=== PATIENT | male | born 1960 | race Caucasian/White ===

== ENCOUNTER 2017-09-05 05:27 | Day surgery (SDC) | payer OTHER ==
[2017-08-17 14:54] VITALS: BMI 59.0
--- NOTE | 2017-08-17 15:42 | PAT Medication Instructions ---
Service Date Aug 17, 2017. Current Home Medication List Albuterol Hfa (Ventolin Hfa), 2-4 PUFFS INH BID Aspirin Enteric Coated (Ecotrin Or Generic), 81 MG PO QAM Celecoxib (CeleBREX), 200 MG PO BID Fluticasone Prop/Salmeterol (Advair Diskus 100/50 60 Dose), 1 PUFF INH DAILY PRN for SOB/Wheezing Furosemide (Lasix), 80 MG PO 3XWK Furosemide (Lasix), 40 MG PO 4XWK Gabapentin (Neurontin), 600 MG PO TID Lamotrigine (Lamictal), 200 MG PO HS Metoprolol Tartrate (Lopressor) (Lopressor), 50 MG PO BID Nitroglycerin (Nitrostat), 1 TAB SL DAILY PRN for chest pain Omeprazole (Prilosec), 40 MG PO QAM Quetiapine Fumarate (Seroquel), 50 MG PO HS Rivaroxaban (Xarelto), 1 TAB PO DAILYBD Spironolactone (Aldactone), 25 MG PO QAM Sucralfate (Carafate), 1 GM PO HS Topiramate (Topamax), 1 TAB PO BID Zolpidem Tartrate (Ambien), 5 MG PO HS PRN for Sleep Medication Instructions For Your Scheduled Surgery -Contact your surgeon for instructions for: Celecoxib (CeleBREX), 200 MG PO BID -Continue as directed: Nitroglycerin (Nitrostat), 1 TAB SL DAILY PRN for chest pain -Hold for TWO DAYS per 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: Rivaroxaban (Xarelto), 1 TAB PO DAILYBD-- LAST DOSE ON SATURDAY 09/02 - SKIP the following medications the morning of surgery: Spironolactone (Aldactone), 25 MG PO QAM Furosemide (Lasix), 80 MG PO 3XWK Furosemide (Lasix), 40 MG PO 4XWK - TAKE the following medications the morning of surgery with a sip of water: Topiramate (Topamax), 1 TAB PO BID Omeprazole (Prilosec), 40 MG PO QAM Gabapentin (Neurontin), 600 MG PO TID Albuterol Hfa (Ventolin Hfa), 2-4 PUFFS INH BID Fluticasone Prop/Salmeterol (Advair Diskus 100/50 60 Dose), 1 PUFF INH DAILY PRN for SOB/Wheezing Aspirin Enteric Coated (Ecotrin Or Generic), 81 MG PO QAM Metoprolol Tartrate (Lopressor) (Lopressor), 50 MG PO BID - TAKE the following medications as scheduled the night before surgery: Zolpidem Tartrate (Ambien), 5 MG PO HS PRN for Sleep Topiramate (Topamax), 1 TAB PO BID Sucralfate (Carafate), 1 GM PO HS Quetiapine Fumarate (Seroquel), 50 MG PO HS Gabapentin (Neurontin), 600 MG PO TID Lamotrigine (Lamictal), 200 MG PO HS Albuterol Hfa (Ventolin Hfa), 2-4 PUFFS INH BID Fluticasone Prop/Salmeterol (Advair Diskus 100/50 60 Dose), 1 PUFF INH DAILY PRN for SOB/Wheezing If you have any questions please call us at [phone] or [phone] or [phone]
[2017-08-17 16:12] LABS: BASO % 0.4 %; BASO ABS # 0.05 K/uL (0-0.2); EOS % 2.1 %; EOS ABS # 0.23 K/uL (0-0.5); HEMATOCRIT 41.8 % (42-52); HEMOGLOBIN 13.8 g/dL (14.0-18.0); IG# 0.04 K/uL (0.00-0.02); LYMPH % 28.9 %; LYMPH ABS # 3.22 K/uL (1.2-3.4); MEAN CELL VOLUME 77.7 fL (80-100); MEAN CORPUSCULAR HEMOGLOBIN 25.7 pg (25-34); MEAN PLATELET VOLUME 10.7 fL (7.4-10.4); MONO % 6.8 %; MONO ABS # 0.76 K/uL (0.11-0.59); NEUT % 61.4 %; NEUT ABS # 6.86 K/uL (1.4-6.5); PLATELET COUNT 300 K/uL (130-400); RED CELL DISTRIBUTION WIDTH CV 16.6 % (11.5-14.5); RED CELL DISTRIBUTION WIDTH SD 47.1 fL (36.4-46.3); WHITE BLOOD COUNT 11.16 K/uL (4.8-10.8)
[~2017-09-05] VITALS: Ht 165.1 cm; Wt 160.9 kg
[~2017-09-05 05:27] MED LIST: ADVIN10/60 INH; ASPI81TA21 PO; CLB/200 PO; FRS/40 PO; FURO80TA63 PO; GABA-113 PO; LAMO200T35 PO; METO50TA16 PO; NTRGSL/4 SL; OMEP40CA41 PO; QUET1TAB32 PO; RIVA1TAB4 PO; SPIR25TA PO; SUCR1TAB29 PO; TOPI25TA55 PO; VNTHFA/IN INH; ZOLP5TAB PO
[2017-09-05 05:45] VITALS: BP 127/70; PULSE 75; TEMP 37; O2SAT 96; Ht 165.1 cm; Wt 160.9 kg
[2017-09-05] MEDS ORDERED: CEFAZOLIN 3000MG IV PUSH 15 ML IV SCH (06:00)
[2017-09-05] MEDS ORDERED: LACTATED RINGER'S 1000ML 1,000 ML IV SCH ×2 (06:00)
--- NOTE | 2017-09-05 06:56 | History & Physical Bridge Note ---
H&P Re-Evaluation Bridge Note: I have examined the patient, reviewed the History & Physical and in the interval since the performance of the History & Physical I have noted the following changes of clinical significance: No changes noted
[2017-09-05] MEDS ORDERED: D5W AND 1/2NSS + 20MEQ KCL 1,000 ML IV SCH (06:57)
[2017-09-05] MEDS ORDERED: OXYCODONE/ACETAMINOPHEN 10/325MG TAB PO PRN (07:00)
[2017-09-05] MEDS ORDERED: ONDANSETRON INJ 2 MG/ML 2 ML VIAL IV PRN ×2 (07:00→09:00)
[2017-09-05] MEDS ORDERED: CHLORHEXIDINE GLUCONATE 0.12% 480 ML MT ONE (07:03)
[2017-09-05] MEDS ORDERED: FENTANYL CITRATE INJ 50 MCG/1 ML 2 ML VIAL ONE ×3 (07:08→08:45)
[2017-09-05] MEDS ORDERED: ONDANSETRON INJ 2 MG/ML 2 ML VIAL ONE (07:44)
[2017-09-05] MEDS ORDERED: PROPOFOL IV EMULSION 10 MG/ML 20 ML VIAL IV ONE (07:44)
[2017-09-05] MEDS ORDERED: SUCCINYLCHOLINE CHLORIDE 20 MG/ML 10 ML VIAL IV ONE (07:44)
[2017-09-05] MEDS ORDERED: LIDOCAINE HCL 2% 2 ML VIAL (20MG/ML) ONE (07:44)
[2017-09-05] MEDS ORDERED: EpHEDrine SULFATE 50MG/5ML SYR ONE (07:44)
[2017-09-05] MEDS: BUPIVACAINE/EPINEPHRINE 0.5% 1:200,000 1.8 ML CARP ONE ×2 (08:16→08:22)
--- NOTE | 2017-09-05 08:29 | [facility] Post Operative Brief Note ---
Immediate Operative Summary Operative Date Sep 05, 2017. Pre-Operative Diagnosis Unrestorable teeth #6, 7, 8, 9, 10, 11, 12, 13, 22, 23, 24, 25, 26, 27, 28, 29 Post-Operative Diagnosis Unrestorable teeth #6, 7, 8, 9, 10, 11, 12, 13, 22, 23, 24, 25, 26, 27, 28, 29 Procedure(s) Performed Extraction of 16 Teeth: # 6,7,8,9,10,11,12,13,22,23,24,25,26,27,28,29 & Alveoplasty x2 Surgeon Dr[address] Deo Mckinnon Sld Educational Aide Surgeon(s) Richa Zamora, BARBIE Estimated Blood Loss 10 mL Findings Consistent with Post-Op Diagnosis Specimens No pathology specimen per surgeon Drains None Anesthesia Type General Complication(s) none Disposition Accompanied Pt To Recover: yes Disposition: Recovery Room / PACU (he did very well )
--- NOTE | 2017-09-05 08:34 | Discharge Instructions ---
Discharge Instructions Date of Service Sep 05, 2017. Visit Reason for Visit: Infected/Abscessed Teeth, Severe Sleep Apnea, Cad, Discharge Discharge Diagnosis / Problem: removal of infected teeth Discharge Goals Goal(s): Decrease discomfort, Improve function, Prevent Disease Progression Medications Stopped Medications Name(s): none Restart Stopped Medication(s): none Activity Recommendations Activity Limitations: per Instructions/Follow-up section Lifting Limitations: no more than 25 pounds Exercise/Sports Limitations: until after follow-up appointment May Resume Sexual Activity: after follow-up appointment Shower/Bathe: no limitations Driving or Machine Use: resume 3 days after discharge Weightbearing Status: Left weightbearing (as tolerated), Right weightbearing ( as tolerated) soft diet only keep gauze pressure to control oozing Anesthesia . Post Anesthesia Instructions: If you have had General Anesthesia or IV Sedation: * Do not drive today. * Resume driving when surgeon permits. * Do not make important decisions or sign legal documents today. * Call surgeon for: 1. Temperature elevations greater than 101 degrees F. 2. Uncontrollable pain. 3. Excessive bleeding. 4. Persistent nausea and vomiting. 5. Medication intolerance (nausea, vomiting or rash). * For nausea and vomiting use only clear liquids such as: tea, soda, bouillon until nausea subsides, then gradually increase diet as tolerated. * If you have any concerns or questions, call your surgeon's office. If physician is unavailable and it is an emergency, call 911 or go to the nearest emergency room. . Instructions / Follow-Up Instructions / Follow-Up ADDITIONAL ACTIVITY RECOMMENDATIONS: * [place] teeth after every meal. It is very important to keep your mouth clean to prevent infection. SPECIAL CARE INSTRUCTIONS: * Keep ice on the side of your face for the next 24 to 36 hours. This will help keep the swelling down. * After 36 hours, apply heat (hot water bottle or heating pad) for the next two days, as often as possible. * Tomorrow start rinsing your mouth with 1/2 teaspoon salt in 8 ounces warm water. This rinse should be used every 4-6 hours. * You may experience slight nausea. To prevent this, never take your medication on an empty stomach. If nauseated, take small sips of codi fred until you feel better; then you may start on applesauce and toast. * Some swelling is common. It should gradually decrease within 4-5 days. * A certain amount of bleeding is to be expected. It is often possible to control mild oozing by placing folded gauze over the area and biting down for 30 minutes. If you are unable to control excessive bleeding, call your doctor at . * You may experience some discomfort for a few days. If pain or swelling increases, call your doctor immediately at . Diet Recommendations Recommended Home Diet: no limitations (soft only ) Fluid Restriction: None Diet Texture: Dental Soft (bite-sized) Liquid Consistency: Pudding Thick Procedures Procedures Performed: Extraction of 16 Teeth: # 6,7,8,9,10,11,12,13,22,23,24,25,26,27,28,29 & Alveoplasty x2 Pending Studies Studies pending at discharge: no List of pending studies: none Work Instructions Return To Work: after follow-up Lifting Limitations: no more than 20 pounds Additional Instructions: none School Instructions Return To School: after follow-up Additional Instructions: none Medical Emergencies . Who to Call and When: Medical Emergencies: If at any time you feel your situation is an emergency, please call 911 immediately. . Non-Emergent Contact Non-Emergency issues call your: Specialist (Dr Mckinnon ) Contact Number: Dr Mckinnon [phone] Call Non-Emergent contact if: you have a fever, temperature is above 101.5, your pain is not controlled, your pain is worsening, your pain is unusual for you, your pain is concerning you, wound has increased drainage, wound has increased pain, you have any medication questions . . "Provider Documentation" section prepared by Deo Mckinnon. . [place] Drug Monitoring Program Search Results: patient reviewed within database Drug Monitoring Findings: as expected
[2017-09-05] MEDS ORDERED: LABETALOL HCL IV 5 MG/ML 20ML IV ONE (08:45)
[2017-09-05] MEDS ORDERED: LABETALOL HCL IV 5 MG/ML 20ML IV STA (08:47)
[2017-09-05] MEDS: FENTANYL CITRATE INJ 50 MCG/1 ML 2 ML VIAL IV PRN ×4 (08:52→09:07)
[2017-09-05] MEDS ORDERED: NALOXONE HCL 0.4 MG/1 ML VIAL/CARP IV PRN (09:00)
[2017-09-05] MEDS ORDERED: FLUMAZENIL 0.1 MG/1 ML 10 ML VIAL IV PRN (09:00)
[2017-09-05] MEDS ORDERED: EpHEDrine SULFATE INJ 50 MG/ML AMP IV PRN (09:00)
[2017-09-05] MEDS ORDERED: ATROPINE SULFATE 0.1 MG/ML 5ML SYR IV PRN (09:00)
--- NOTE | 2017-09-05 09:37 | Anesthesiology Progress Note ---
Anesthesia Post Op Note Date & Time Sep 05, 2017 at 09:37 Vital Signs Pain Intensity: 3 Vital Signs Past 12 Hours Date Time Temp Pulse Resp B/P (MAP) Pulse Ox O2 Delivery O2 Flow Rate FiO2 09/05/17 09:31 141/68 09/05/17 09:30 83 14 09/05/17 09:30 81 14 94 09/05/17 09:29 116/63 09/05/17 09:25 85 19 09/05/17 09:25 73 19 95 09/05/17 09:21 126/70 09/05/17 09:20 81 13 09/05/17 09:20 77 13 94 09/05/17 09:19 78 16 09/05/17 09:19 68 16 95 09/05/17 09:16 130/75 09/05/17 09:14 77 12 09/05/17 09:14 76 12 92 09/05/17 09:13 36.6 71 16 130/75 (108) 94 Nasal Cannula 2 09/05/17 09:11 146/66 09/05/17 09:09 82 10 09/05/17 09:09 83 10 125/81 88 09/05/17 09:07 170/ 09/05/17 09:06 184/155 09/05/17 09:04 77 24 09/05/17 09:04 85 24 98 09/05/17 09:03 77 13 99 09/05/17 09:03 77 13 09/05/17 09:01 168/68 09/05/17 08:58 79 15 99 09/05/17 08:58 81 15 09/05/17 08:56 146/89 09/05/17 08:53 83 13 09/05/17 08:53 77 13 97 09/05/17 08:51 154/74 09/05/17 08:49 150/103 09/05/17 08:48 73 15 96 09/05/17 08:48 78 15 09/05/17 08:46 157/99 09/05/17 08:43 71 15 96 09/05/17 08:43 81 15 09/05/17 08:41 169/104 09/05/17 08:38 85 16 150/103 96 09/05/17 08:38 89 16 09/05/17 08:38 36.3 73 16 169/104 (114) 96 Oxymask 10 09/05/17 05:45 37 75 20 127/70 (89) 96 Room Air Notes Mental Status: alert / awake / arousable, participated in evaluation Pt Amnestic to Procedure: Yes Nausea / Vomiting: adequately controlled Pain: adequately controlled Airway Patency, RR, SpO2: stable & adequate BP & HR: stable & adequate Hydration State: stable & adequate Anesthetic Complications: no major complications apparent
[2017-09-05 09:45] VITALS: BP 130/56; PULSE 78; TEMP 36.6; O2SAT 93
[2017-09-05 10:15] VITALS: BP 125/67; PULSE 76; TEMP 36.6; O2SAT 94
--- NOTE | 2017-09-05 10:31 | Medical Consult ---
Consultation Date of Consultation: Sep 05, 2017. Attending Physician: Deo Arreola D.M.D. Reason for Consultation: Consult medicine to assess pt stable for discharge History of Present Illness Pt is 56 y/o M with PMH chronic a-fib on xarelto, CAD s/p CABG x 4 in 2001, HTN , hyperlipidemia, OSCAR uses CPAP, morbid obesity, cor pulmonale, chronic back pain s/p [address] Arreola today. Pt back in PACU. Xarelto was held for 48 hours, pt to resume taking tomorrow per oral surgery. Pt already has Rx for antibiotics, pain medicine, mouth rinse. Vitals: T: 36.6, pulse: 70, Resp: 18, BP: 130/56, O2: 93% on RA. Denies excessive bleeding from extraction sites and reports mild pain to extraction sites. Denies chills, diaphoresis, N/V /D, STUBBS, dizziness, vision changes, neck pain, CP, SOB, palpitations, cough, abdominal pain, paresthesias, extremity weakness, extremity edema, rashes, urinary symptoms. Past Medical/Surgical History Medical Problems: (1) CAD (coronary artery disease) Status: Chronic (2) Chronic atrial fibrillation Status: Chronic (3) Chronic back pain Status: Chronic (4) Cor pulmonale Status: Chronic (5) Depression Status: Chronic (6) HTN (hypertension) Status: Chronic (7) Hyperlipidemia Status: Chronic (8) Obesities, morbid Status: Chronic (9) OSCAR (obstructive sleep apnea) Status: Chronic Surgical Problems: (1) Hx of biopsy Permanent Comment: hip Status: Resolved (2) Hx of coronary artery bypass graft Permanent Comment: 202 - CABG x 4 Status: Resolved Family History Hypertension Social History Smoking Status: Former Smoker (quit 2015, smoked 1ppd x 2 years) Smokeless Tobacco Use: Yes (snuff daily) Alcohol Use: none Drug Use: none Allergies Coded Allergies: Morphine (Verified Adverse Reaction, Mild, nausea and vomiting, 09/05/17) Current Inpatient Medications Current Inpatient Medications Medications (Trade) Dose Ordered Sig/Patricia Route Start Time Stop Time Status Last Admin Dose Admin Lactated Ringer's 1,000 ml @ 150 mls/hr Q6H40M IV 09/05/17 06:00 09/05/17 12:39 09/05/17 05:49 150 MLS/HR Cefazolin Sodium 15 ml @ 3 mls/min PREOP IV 09/05/17 06:00 09/05/17 18:00 09/05/17 07:12 3 MLS/MIN Lactated Ringer's 1,000 ml @ 15 mls/hr Q24H IV 09/05/17 06:00 09/06/17 05:59 Potassium Chloride/Dextrose/ Sod Cl 1,000 ml @ 125 mls/hr Q8H IV 09/05/17 06:57 10/05/17 06:56 UNV Ondansetron HCl (Zofran Inj) 4 mg Q4H PRN IV 09/05/17 07:00 10/05/17 06:59 UNV Ketorolac Tromethamine (Toradol Inj) 30 mg Q6 IV. 09/05/17 12:00 09/10/17 11:59 UNV Oxycodone/ Acetaminophen (Percocet 10-325MG Tab) 1 tab Q4H PRN PO 09/05/17 07:00 09/19/17 06:59 Fentanyl Citrate (Fentanyl Inj) 25 mcg Q5M PRN IV 09/05/17 09:00 09/05/17 14:00 09/05/17 09:07 25 MCG Naloxone HCl (Narcan Inj) 0.2 mg Q2M PRN IV 09/05/17 09:00 09/05/17 14:00 Flumazenil (Romazicon Inj) 0.2 mg Q2M PRN IV 09/05/17 09:00 09/05/17 14:00 Ondansetron HCl (Zofran Inj) 4 mg ONE PRN IV 09/05/17 09:00 09/05/17 14:00 Ephedrine Sulfate (EpHEDrine SULFATE INJ) 5 mg Q5M PRN IV 09/05/17 09:00 09/05/17 14:00 Atropine Sulfate (Atropine Sulfate 0.1mg/ml Inj) 0.5 mg Q1M PRN IV 09/05/17 09:00 09/05/17 14:00 Review of Systems Constitutional: No fever, No chills, No sweats, No weakness Eyes: No worsening of vision, No eye pain, No discharge, No diplopia ENT: + dental problems (s/p dental extraction - see HPI), No hearing loss, No unusual epistaxis, No nasal symptoms, No sore throat, No trouble swallowing Respiratory: No cough, No sputum, No wheezing, No shortness of breath, No hemoptysis Cardiovascular: No chest pain, No orthopnea, No PND, No palpitations Abdomen: No pain, No nausea, No vomiting, No diarrhea, No constipation, No GI bleeding Genitourinary - Male: No hematuria, No dysuria, No urinary frequency, No urinary urgency Neurologic: No weakness, No numbness/tingling Hematologic / Lymphatic: No abnormal bleeding/bruising, No clotting problems, No night sweats Integumentary: No rash, No itch Physical Exam Date Time Temp Pulse Resp B/P (MAP) Pulse Ox O2 Delivery O2 Flow Rate FiO2 09/05/17 09:45 36.6 78 18 130/56 93 Room Air 09/05/17 09:31 141/68 09/05/17 09:30 83 14 09/05/17 09:30 81 14 94 09/05/17 09:29 116/63 09/05/17 09:25 85 19 09/05/17 09:25 73 19 95 09/05/17 09:21 126/70 09/05/17 09:20 81 13 09/05/17 09:20 77 13 94 09/05/17 09:19 78 16 09/05/17 09:19 68 16 95 09/05/17 09:16 130/75 09/05/17 09:14 77 12 09/05/17 09:14 76 12 92 09/05/17 09:13 36.6 71 16 130/75 (108) 94 Nasal Cannula 2 09/05/17 09:11 146/66 09/05/17 09:09 82 10 09/05/17 09:09 83 10 125/81 88 09/05/17 09:07 170/ 09/05/17 09:06 184/155 09/05/17 09:04 77 24 09/05/17 09:04 85 24 98 09/05/17 09:03 77 13 99 09/05/17 09:03 77 13 09/05/17 09:01 168/68 09/05/17 08:58 79 15 99 09/05/17 08:58 81 15 09/05/17 08:56 146/89 09/05/17 08:53 83 13 09/05/17 08:53 77 13 97 09/05/17 08:51 154/74 09/05/17 08:49 150/103 09/05/17 08:48 73 15 96 09/05/17 08:48 78 15 09/05/17 08:46 157/99 09/05/17 08:43 71 15 96 09/05/17 08:43 81 15 09/05/17 08:41 169/104 09/05/17 08:38 85 16 150/103 96 09/05/17 08:38 89 16 09/05/17 08:38 36.3 73 16 169/104 (114) 96 Oxymask 10 09/05/17 05:45 37 75 20 127/70 (89) 96 Room Air General Appearance: no apparent distress, + obese Head: normocephalic, atraumatic Eyes: normal inspection, PERRL, EOMI, sclerae normal ENT: hearing grossly normal, pharynx normal, + pertinent finding (+dental extraction sites with scant bleeding) Neck: supple, trachea midline Respiratory/Chest: chest non-tender, no respiratory distress, no accessory muscle use, + pertinent finding (dminished BS throughout without rhonchi, rales or wheezing) Cardiovascular: no murmur, normal peripheral pulses, + irregularly irregular ( rate 70) Abdomen/GI: normal bowel sounds, non tender, + pertinent finding (obese abdomen ) Extremities/Musculoskelatal: normal inspection, normal capillary refill, non- tender, + pertinent finding (pedal pushes and pulls intact, flexion and extension hips/knees bilaterally intact, ROM arms intact) Neurologic/Psych: alert, normal mood/affect, oriented x 3 Skin: normal color, warm/dry Assessment & Plan S/P 16 TOOTH DENTAL EXTRACTION by DR ARREOLA Pt seen in PACU after extraction. Doing well. Scant bleeding from extraction sites. Vitals stable, no CP, SOB. Feel pt stable for d/c home. pain management, antibiotics, wound care per oral surgeon. Per Dr Arreola, pt to resume his Xarelto tomorrow. f/u with Dr Arreola as directed. Keep f/u appt in [address] Morillo as directed. Pt was seen with Dr Camilo. See addendum ATTENDING PHYSICIAN ADDENDUM: Care coordinated with JUNIOR Godinez. She assessed the patient in PACU and he was doing well. Patient was discharged from PACU before I could see him. Thank you for this consultation. You can reach a member of the [facility] Medicine Team 27/02 via pager @ [phone]. You can reach me via cell @ [phone]. . Additional Copies To Jp Morillo M.D.
[2017-09-05] MEDS ORDERED: KETOROLAC TROMETHAMINE 30 MG/ML VIAL IV. SCH (12:00)
--- NOTE | 2017-09-06 16:06 | OPERATIVE REPORT ---
DATE OF OPERATION: 09/05/2017 ADMITTING DIAGNOSES: Severe infected carious teeth and swollen gums as a result of the infected teeth, enlarged mandibular right lingual aspect of the mandible secondary to bony exostosis (myriam), multiple medical comorbidities, which include chronic pulmonary disease, status post coronary artery syndrome and severe obstructive sleep disorder. As a result of these comorbidities, it was recommended that the patient be treated as an outpatient at [facility] where adequate anesthesia could be managed. The patient underwent extensive preoperative testing before he was cleared to undergo the surgical procedure to remove these infected and carious teeth. POSTOPERATIVE DIAGNOSES: Same, which is the removal of 16 carious and infected teeth and alveoplasties and tore reduction of the mandible. OPERATIVE PROCEDURE: The operation was that of surgical extractions of teeth #6, #7, #8, #9, #10, #11, #12, #13, #22, #23, #24, #25, #26, #27, #28, and #29; alveoplasties of upper and lower jaw and removal of myriam mandibular right lower lingual aspect of mandible. OPERATION: After this patient was cleared to undergo a general anesthesia, he was brought down to the operating room and placed under general anesthesia via an orotracheal intubation. After adequate anesthesia was obtained, the patient was prepped and draped in the usual manner for the removal of multiple carious teeth and alveoplasties. After a timeout was taken and all information was correct, the patient was then prepared for the multiple extractions. The facial area was isolated. After this was done, an oropharyngeal throat pack was placed and the oral cavity was irrigated with Peridex mouth rinse and then suctioned dried. Using local anesthesia in the form of Marcaine anesthesia, this was infiltrated into the maxillary tissues as well as bilateral mandibular inferior alveolar nerve blocks. After adequate period of time to allow for hemostasis and local anesthetic effect, the extractions were carried out. At this time, the removal of the remaining maxillary teeth were carried out. After the teeth were removed, an incision was made in the mucoperiosteal tissue to expose the irregular bone. Using rongeurs and rotary instruments, the bony margins were then smoothed and trimmed to a more normal configuration. Each socket was curetted and suctioned dried, the soft tissue was trimmed with the use of a 2-0 chromic suture in an interrupted and continuous as well as a continuous fashion, the mucoperiosteal tissue was sutured closed. I now turned my attention to the failing teeth in the lower. Once again, the 15 blade was used to make an incision around the necks of all the teeth, the mucoperiosteal tissue was reflected to expose the irregular bone on both the facial and lingual aspect of the mandible. A very broad-based myriam was noted on the mandibular right side. With the use of dental forceps, I was able to remove the remaining mandibular teeth. The bony margins were then trimmed with the use of a rongeur and rotary instruments. I then turned my attention to the large broad-based myriam and with the use of a retractor, I was able to hold the tissue out of the way. I then used a small round karyna and carefully removed the bony myriam and then filed the area smooth until we were able to get a very nice contour of the lingual aspect of the mandible. After this was done, I then a filed the mandibular bone, smoothed to remove any bony protuberances. At this time, the soft tissue was trimmed in the usual manner with a sharp scissor. The sockets were then curetted and irrigated. The soft tissue was carefully approximated to obtain closure. At this time, the operation was complete. All the teeth were removed, the patient now had very nice contour alveolar ridges of both the upper and lower jaw. The oropharyngeal throat pack was removed. The oral cavity was irrigated and suction dry. Estimated blood loss was approximately 10 mL. Operating surgeon was Dr. Doe Mckinnon with nurse optical assistant, Richa Sommer. The operation took approximately an hour and 15 minutes. At this time, I escorted the patient with the anesthesia department to the recovery room after he was extubated. He was breathing satisfactorily and his vital signs were stable. In the recovery room, the patient was quite awake and alert for a short period of time. He had gauze pressure in his mouth and his hemostasis was well controlled. At this time, I reviewed the postoperative instructions with his sister who will care for the patient while he is recuperating at home. [facility] and if there are any problems, they will notify us; otherwise, he will be discharged and resume all of his present medications. He will be followed in our office in approximately 7-10 days. I estimate that in approximately 8-10 weeks, the patient will be ready for full upper and lower dentures. Comorbidities are as stated - chronic obstructive pulmonary disease, coronary artery disease, obesity and severe obstructive sleep apnea. He will be followed in my office. Routine instructions and prescriptions were given to the patient preoperatively. The patient tolerated the surgery very well and I anticipate an uneventful postoperative recovery. I attest to the content of the Intraoperative Record and any orders documented therein. Any exception s are noted below.
== END 2017-09-05 10:39 | disposition home or self-care (01) ==
LOC: C.OR 05:27
PROVIDERS: ATTEND Dentist Oral and Maxillofacial Surgery
DX: K08.89 Other specified disorders of teeth and supporting structures (principal); K02.9 Dental caries, unspecified; E78.00 Pure hypercholesterolemia, unspecified; I10 Essential (primary) hypertension; I25.10 Atherosclerotic heart disease of native coronary artery without angina pectoris; G47.33 Obstructive sleep apnea (adult) (pediatric); K21.9 Gastro-esophageal reflux disease without esophagitis; I25.2 Old myocardial infarction; E66.9 Obesity, unspecified; I48.91 Unspecified atrial fibrillation; Z95.5 Presence of coronary angioplasty implant and graft; Z79.01 Long term (current) use of anticoagulants
CPT/HCPCS: D7140; D7310; D7311; D7473

== ENCOUNTER 2020-03-03 15:43 | Inpatient (IN) ==
[2020-03-03] MEDS ORDERED: SODIUM CHLORIDE 0.9% 1000ML 1,000 ML IV SCH ×2 (16:30→21:19)
--- NOTE | 2020-03-03 17:16 | Emergency Department Note ---
ED Visit Note This patient was seen in concert with Dr. Aguilar and we discussed and agreed upon the history, physical, assessment, and plan. See attending's note for details. . Resident Activity Tracking Resident Involvement: Resident Care Provided Care Provided: Adult ED
--- NOTE | 2020-03-03 17:25 | Emergency Department Note ---
Impression & Plan Syncope, Chronic atrial fibrillation, Leukocytosis, CKD (chronic kidney disease) ED Provider Note NAME: SHADE ANDUJAR AGE: 59 SEX: M : 1960 ARRIVES VIA: Walk-In INFORMANT: Patient ED PROVIDER(S): Godfrey Aguilar DO CHIEF COMPLAINT: syncope HPI: Patient is a 59-year-old male with a past medical history of cardiac bypass x3, A. fib, CHF who presents the ER for syncopal event. He was carrying groceries into the house. He felt dizzy, lightheaded and did have some shortness of breath. He sat down on the couch and that is the last thing he remembers. Next thing he knew, his sister was waking him up. She notes that he was gasping for air. Patient has been taking his Xarelto and has not missed any doses. He notes he did lose control of his bladder. He denies any headache, change in vision, chest pain, shortness of breath, nausea, vomiting or diarrhea currently. No dysuria, urgency or frequency. No other exacerbating or remitting factors. ROS: See above HPI for pertinent positives & negatives. A total of 10 systems reviewed and were otherwise negative. PAST MEDICAL HISTORY:See Below PAST SURGICAL HISTORY:See Below FAMILY HISTORY:See Below SOCIAL HISTORY:See Below HOME MEDICATIONS:See Below ALLERGIES:See Below VITALS:See Below PHYSICAL EXAMINATION: GENERAL: Sitting up in bed, alert, chronically ill-appearing, disheveled, nontoxic EYE EXAM: normal conjunctiva. PERRL and EOM's intact. OROPHARYNX: no exudate, no erythema, lips, buccal mucosa, and tongue normal and mucous membranes are moist NECK: supple, no nuchal rigidity, no adenopathy, non-tender LUNGS: Clear to auscultation. Normal chest wall mechanics HEART: no murmurs, S1 normal and S2 normal ABDOMEN: abdomen soft, non-tender, normo-active bowel sounds, no masses, no rebo und or guarding. BACK: Back is symmetrical on inspection and there is no deformity, no midline tenderness, no CVA tenderness. SKIN: no rashes and no bruising UPPER EXTREMITIES: upper extremities are grossly normal. LOWER EXTREMITIES: No pitting edema. NEURO EXAM: Normal sensorium, cranial nerves II-XII intact, normal speech, no weakness of arms, no weakness of legs. No drift. Finger to nose intact. Gross sensation intact. MEDICAL DECISION MAKING: Patient is a 59-year-old male with a past medical history of CABG x3, CHF, A. fib who presents the ER for syncopal event. Patient was walking groceries in the house and became dizzy, lightheaded and short of breath. He went to sit down on the couch and passed out. Family woke him up noticed that he was having trouble breathing. Brought in by EMS. IV was established blood work was obtained. Labs show leukocytosis 13,000. No significant anemia. BMP with a creatinine 1.8 slightly elevated off of baseline of 1.7. LFTs bilirubin were negative. TSH unremarkable. Troponin was detectable but not positive at 0.021. EKG with no acute ischemia. Chest x-ray was unremarkable. CT head was negative. Neuro exam completely intact. He was given IV fluids. Oral Oxy for his chronic left shoulder pain. With his extensive cardiac history and syncopal event did discuss with the hospitalist for observation. Considered PE but on chronic anticoagulation and consequently did not pursue any further. Triage Nursing notes reviewed. Prior medical records reviewed Vital Signs: reviewed and remarkable for no significant abnormalities Differential diagnosis: Differential diagnosis includes etiologies such as vasovagal event, infection, hypoglycemia, electrolyte abnormalities, cardiac sources, intracerebral event, toxicologic, neurologic, as well as others were entertained. ER treatment provided: See below Diagnostics interpreted by me: ECG: A. fib rate of 54 Right axis T WI in the septal leads No PVCs Normal QTC Cardiac Monitoring: An order was placed for continuous cardiac monitoring. The monitor shows a rate of 56 with A. fib rhythm. Laboratory studies: As stated above and show below. Imaging studies: Portable AP upright 1 view of the chest shows no focal infiltrate or pneumothorax CT of the head shows no bleed or mass. Consultation(s): With Dr. Vann for observation ED COURSE: Procedures: none Critical Care: None Past Med/Surg History Social History Smoking Status: Never smoker Second Hand Exposure: No; Hx Alcohol Use: No Hx Substance Use: Yes Last Used Substance: Days (ago) Last Used Substance Other:: 3 days ago Preferred Language: Albanian Communication Ability: Effective Hearing Ability: Normal [employer] Distribution Supervisor Required: Yes Beliefs That Will Affect Care: None Current Living Situation: Alone Feels Safe at Home: Yes Allergies Allergies Allergy/AdvReac Type Severity Reaction Status Date / Time morphine AdvReac Mild nausea and Verified 01/31/19 00:57 vomiting Home Meds Home Medications Medication Instructions Recorded Confirmed Xarelto 20 mg PO QDD 05/04/18 01/31/19 albuterol sulfate [ProAir HFA] 2 puff INHALATION QID PRN 05/04/18 01/31/19 ferrous sulfate 325 mg PO DAILY 05/04/18 01/31/19 fluticasone propion-salmeterol 1 puff INHALATION DAILY PRN 05/04/18 01/31/19 [Advair Diskus] gabapentin 600 mg PO TID 05/04/18 01/31/19 hydroxyzine HCl 50 mg PO BID PRN 05/04/18 01/31/19 isosorbide mononitrate 30 mg PO QAM 05/04/18 01/31/19 lamotrigine [Lamictal] 200 mg PO BID 05/04/18 01/31/19 metoprolol tartrate 50 mg PO BID 05/04/18 01/31/19 nitroglycerin [Nitrostat] 0.4 mg SUBLINGUAL DIRECTED PRN 05/04/18 01/31/19 omeprazole 40 mg PO DAILY 05/04/18 01/31/19 quetiapine [Seroquel] 50 mg PO HS 05/04/18 01/31/19 spironolactone 12.5 mg PO DAILY 05/04/18 01/31/19 sucralfate [Carafate] 1 g PO HS 05/04/18 01/31/19 topiramate [Topamax] 25 mg PO BID 05/04/18 01/31/19 zolpidem [Ambien] 5 mg PO HS PRN 05/04/18 01/31/19 Previous Rx's Medication Instructions Recorded hydrocodone-acetaminophen [Kincaid] 1 tab PO Q6H PRN #14 tab 02/16/20 Results & Data (ED) Vital Signs Vital Signs - 24 hr 03/03/20 15:50 03/03/20 17:38 03/03/20 17:42 Temperature 36.7 C Temperature Source Oral Pulse Rate 70 53 L Pulse Rate from SpO2 Sensor 55 L Respiratory Rate 18 14 Blood Pressure 110/65 95/65 L Blood Pressure Mean 80 76 Pulse Oximetry 97 97 97 Oxygen Delivery Method Room Air Room Air Sepsis Recent Fever Within 48 Hours No Sepsis New/Unexplained Change in Mental Status No Sepsis Action Taken by Nursing No Action Required 03/03/20 18:27 03/03/20 18:30 03/03/20 19:00 Temperature Temperature Source Pulse Rate 61 57 L 55 L Pulse Rate from SpO2 Sensor 65 56 L 55 L Respiratory Rate 17 20 18 Blood Pressure 113/74 126/72 112/69 Blood Pressure Mean 86 83 78 Pulse Oximetry 99 99 99 Oxygen Delivery Method Sepsis Recent Fever Within 48 Hours Sepsis New/Unexplained Change in Mental Status Sepsis Action Taken by Nursing 03/03/20 19:31 Temperature Temperature Source Pulse Rate 64 Pulse Rate from SpO2 Sensor 64 Respiratory Rate 22 Blood Pressure 108/60 Blood Pressure Mean 79 Pulse Oximetry 99 Oxygen Delivery Method Sepsis Recent Fever Within 48 Hours Sepsis New/Unexplained Change in Mental Status Sepsis Action Taken by Nursing Laboratory Data Result diagrams: 03/03/20 18:30 03/03/20 18:30 Lab Results 03/03/20 03/03/20 03/03/20 Range/Units 18:30 18:30 18:30 WBC 13.15 H (4.8-10.8) K/uL RBC 4.95 (4.7-6.1) M/uL Hgb 14.2 (14.0-18.0) g/dL Hct 43.2 (42-52) % MCV 87.3 (80-100) fL MCH 28.7 (25-34) pg MCHC 32.9 (32-36) g/dL RDW Std Deviation 53.8 H (36.4-46.3) fL RDW Coeff of Karlene 16.9 H (11.5-14.5) % Plt Count 208 (130-400) K/uL MPV 10.3 (7.4-10.4) fL Immature Gran % (Auto) 0.5 % Neut % (Auto) 76.6 % Lymph % (Auto) 14.6 % [place] % (Auto) 7.0 % Eos % (Auto) 1.1 % Baso % (Auto) 0.2 % Neut # (Auto) 10.09 H (1.4-6.5) K/uL Lymph # (Auto) 1.92 (1.2-3.4) K/uL [place] # (Auto) 0.92 H (0.11-0.59) K/uL Eos # (Auto) 0.14 (0-0.5) K/uL Baso # (Auto) 0.02 (0-0.2) K/uL Immature Gran # (Auto) 0.06 H (0.00-0.02) K/uL PT 11.4 (9.0-12.0) Seconds INR 1.1 (0.9-1.1) Sodium 137 (136-145) mmol/L Potassium 4.4 (3.5-5.1) mmol/L Chloride 107 (98-107) mmol/L Carbon Dioxide 25 (21-32) mmol/L Anion Gap 5.0 (3-11) BUN 14 (7-18) mg/dl Creatinine 1.86 H (0.6-1.4) mg/dl Est Cr Clr Drug Dosing 57.9 ml/min Est GFR ( Amer) 45.2 Est GFR (Non-Af Amer) 39.0 BUN/Creatinine Ratio 7.6 L (10-20) Glucose 93 (70-99) mg/dl Calcium 9.4 (8.5-10.1) mg/dl Magnesium 2.3 (1.8-2.4) mg/dl Total Bilirubin 0.5 (0.2-1) mg/dl AST 18 (15-37) U/L ALT 32 (12-78) U/L Alkaline Phosphatase 133 H (45-117) U/L Troponin I 0.021 (0-0.045) ng/ml Total Protein 6.5 (6.4-8.2) gm/dl Albumin 3.2 L (3.4-5.0) gm/dl Globulin 3.3 (2.5-4.0) gm/dl Albumin/Globulin Ratio 1.0 (0.9-2) TSH 1.630 (0.300-4.500) uIu/ml Administered Medications Discontinued Medications Sodium Chloride (Nss 1000ml) 1,000 mls @ 999 mls/hr IV .Q1H1M CHRISTINE Stop: 03/03/20 17:30 Last Infusion: 03/03/20 19:42 Dose: 0 mls/hr Documented by: [id number] Admin: 03/03/20 17:43 Dose: 999 mls/hr Documented by: [id number] Discharge Plan Visit Data Chief Complaint: Syncope Stated Complaint: PASSED OUT, LOW BP ED Provider: Godfrey Aguilar ED Midlevel Provider: Jorge Hidalgo Discharge Problem: Syncope, Chronic atrial fibrillation, Leukocytosis, CKD (chronic kidney disease) Forms Stand Alone Forms: [facility] Prescriptions Prescriptions: No Action hydrocodone-acetaminophen [Kincaid] 5-325 mg tablet 1 tab PO Q6H PRN (Reason: pain) Qty: 14 RF: 0 gabapentin 600 mg Tablet 600 mg PO TID RF: 0 lamotrigine [Lamictal] 200 mg Tablet 200 mg PO BID RF: 0 sucralfate [Carafate] 1 gram Tablet 1 g PO HS RF: 0 isosorbide mononitrate 30 mg Tablet Extended Release 24 Hr 30 mg PO QAM RF: 0 topiramate [Topamax] 25 mg Tablet 25 mg PO BID RF: 0 hydroxyzine HCl 50 mg Tablet 50 mg PO BID PRN (Reason: Itching) RF: 0 omeprazole 40 mg Capsule,Delayed Release(Dr/Ec) 40 mg PO DAILY RF: 0 spironolactone 25 mg Tablet 12.5 mg PO DAILY RF: 0 ferrous sulfate 325 mg (65 mg iron) Tablet 325 mg PO DAILY RF: 0 metoprolol tartrate 50 mg Tablet 50 mg PO BID RF: 0 nitroglycerin [Nitrostat] 0.4 mg Tablet, Sublingual 0.4 mg Sublingual DIRECTED PRN (Reason: Chest Pain) RF: 0 zolpidem [Ambien] 5 mg Tablet 5 mg PO HS PRN (Reason: Sleep) RF: 0 fluticasone propion-salmeterol [Advair Diskus] 100-50 mcg/dose Blister With Device 1 puff INHALATION DAILY PRN (Reason: Shortness Of Breath Or Wheezing) RF: 0 albuterol sulfate [ProAir HFA] 90 mcg/actuation Hfa Aerosol Inhaler 2 puff INHALATION QID PRN (Reason: Shortness Of Breath Or Wheezing) RF: 0 quetiapine [Seroquel] 50 mg Tablet 50 mg PO HS RF: 0 Xarelto 20 mg Tablet 20 mg PO QDD RF: 0 Discharge Problem: Syncope Qualifiers: Syncope type: unspecified Qualified Code(s): R55 - Syncope and collapse Leukocytosis Qualifiers: Leukocytosis type: unspecified Qualified Code(s): D72.829 - Elevated white blood cell count, unspecified CKD (chronic kidney disease) Qualifiers: Chronic kidney disease stage: unspecified stage Qualified Code(s): N18.9 - Chronic kidney disease, unspecified
--- NOTE | 2020-03-03 17:37 | XRay Report ---
XR chest 1V portable HISTORY: 59 years-old Male syncope acute syncope COMPARISON: Chest radiographs 05/04/2018, chest CT 04/18/2006 TECHNIQUE: Portable AP view of the chest FINDINGS: Cardiac silhouette is enlarged, unchanged. Prior median sternotomy. No pneumothorax, large pleural ef fusion or overt pulmonary edema. Chronic interstitial coarsening of the lung bases. 10 mm calcified g ranuloma of the right lung base. Degenerative changes of the shoulders and spine. IMPRESSION: Cardiomegaly without acute process. ACT 112: Negative or not required by law. The above report was generated using voice recognition software. It may contain grammatical, syntax o r spelling errors. Electronically signed by: Darrell Bland M.D. 03/03/2020 5:36 PM
--- NOTE | 2020-03-03 17:59 | CT Scan Report ---
CT head/brain wo con CLINICAL HISTORY: 59 years-old Male with Loss of conciousness. Acutely altered mental status TECHNIQUE: Multiple axial CT images of the head were obtained without contrast. A dose lowering tech nique was utilized adhering to the principles of ALARA. CT DOSE: 884.08 mGy.cm COMPARISON: None. FINDINGS: No acute intracranial hemorrhage, midline shift, intracranial mass, hydrocephalus, territorial ischem ia or abnormal extra-axial collection. Mild age-related involutional changes. There is a probable rem ote lacunar infarct adjacent to the frontal horn left lateral ventricle. The calvarium is intact. The paranasal sinuses, mastoid air cells, and middle ear cavities are clear . IMPRESSION: No acute intracranial abnormality. ACT 112: Negative or not required by law. The above report was generated using voice recognition software. It may contain grammatical, syntax o r spelling errors. Electronically signed by: Darrell Bland M.D. 03/03/2020 5:58 PM
[2020-03-03 18:38] LABS: Basophils # (auto) 0.02 K/uL (0-0.2); Basophils % (auto) 0.2 %; Eosinophils # (auto) 0.14 K/uL (0-0.5); Eosinophils % (auto) 1.1 %; Hematocrit (blood only) 43.2 % (42-52); Hemoglobin 14.2 g/dL (14.0-18.0); Immature Granulocytes # (auto) 0.06 K/uL (0.00-0.02); Immature Granulocytes % (auto) 0.5 %; Lymphocytes # (auto) 1.92 K/uL (1.2-3.4); Lymphocytes % (auto) 14.6 %; Mean Corpuscular Hemoglobin 28.7 pg (25-34); Mean Corpuscular Hgb Conc 32.9 g/dL (32-36); Mean Corpuscular Volume 87.3 fL (80-100); Mean Platelet Volume 10.3 fL (7.4-10.4); Monocytes # (auto) 0.92 K/uL (0.11-0.59); Neutrophils # (auto) 10.09 K/uL (1.4-6.5); Neutrophils % (auto) 76.6 %; Platelet Count 208 K/uL (130-400); RDW Coefficient of Variation 16.9 % (11.5-14.5); RDW Standard Deviation 53.8 fL (36.4-46.3); Red Blood Count 4.95 M/uL (4.7-6.1); White Blood Count 13.15 K/uL (4.8-10.8)
[2020-03-03 18:49] LABS: INR 1.1 (0.9-1.1); Prothrombin Time 11.4 Seconds (9.0-12.0)
[2020-03-03 18:55] LABS: Albumin Level 3.2 gm/dl (3.4-5.0); BUN Creatinine Ratio 7.6 (10-20); Calcium 9.4 mg/dl (8.5-10.1); Creatinine Clr Calc Pharmacy 57.9 ml/min; Est GFR (African American) 45.2; Magnesium 2.3 mg/dl (1.8-2.4); Potassium 4.4 mmol/L (3.5-5.1)
[2020-03-03 19:06] LABS: Bilirubin,Total 0.5 mg/dl (0.2-1); Globulin 3.3 gm/dl (2.5-4.0); Thyroid Stimulating Hormone 1.63 uIu/ml (0.300-4.500); Total Protein 6.5 gm/dl (6.4-8.2); Troponin I 0.021 ng/ml (0-0.045)
[2020-03-03] MEDS ORDERED: OXYCODONE HCL IR 5 MG TAB (IMMEDIATE RELEASE) PO STA (19:55)
[2020-03-03] MEDS ORDERED: MoRPHine SULFATE 4 MG/ML 1 ML CARP\\VIAL IV PRN (21:19)
[2020-03-03] MEDS ORDERED: POLYETHYLENE (MIRALAX) 17 GM PACK PO PRN (21:19)
[2020-03-03] MEDS ORDERED: NITROGLYCERIN SL 0.4 MG/TAB TAB SL PRN ×2 (21:19)
[2020-03-03] MEDS ORDERED: ALBUTEROL 0.083% NEBU SOLN 3 ML VIAL INH PRN (21:19)
[2020-03-03] MEDS ORDERED: METOPROLOL TARTRATE 50 MG TAB PO SCH (21:19)
[2020-03-03] MEDS ORDERED: ONDANSETRON INJ 2 MG/ML 2 ML VIAL IV PRN (21:19)
[2020-03-03] MEDS ORDERED: POTASSIUM CHLORIDE 20 MEQ TABCR PO SCH (21:19)
[2020-03-03] MEDS ORDERED: ACETAMINOPHEN 325 MG TAB PO PRN (21:19)
[2020-03-03] MEDS: TAMSULOSIN HCL 0.4 MG CAP PO SCH (22:26)
[2020-03-03] MEDS: SUCRALFATE 1 GM TAB PO SCH (22:26)
[2020-03-03] MEDS: GABAPENTIN 600 MG TAB PO SCH (22:26)
[2020-03-03] MEDS: lamoTRIgine 100 MG TAB PO SCH (22:26)
[2020-03-03] MEDS: APIXABAN 5 MG TABLET PO SCH (22:27)
[2020-03-03] MEDS: QUETIAPINE FUMARATE 200 MG TAB PO SCH (22:27)
[2020-03-03] MEDS: TOPIRAMATE 25 MG TAB PO SCH (22:27)
[2020-03-03] MEDS: CeleBREX 200 MG CAP PO SCH (22:27)
[2020-03-03] MEDS: DICLOFENAC SOD 1% GEL 100 GM TUBE EXT SCH (22:28)
[2020-03-03] MEDS: OXYCODONE/ACETAMINOPHEN 5mg/325mg TAB PO PRN (23:19)
[2020-03-03] MEDS: ZOLPIDEM TARTRATE 5 MG TAB PO PRN (23:19)
--- NOTE | 2020-03-03 23:35 | History and Physical Report ---
DATE OF ADMISSION: 03/03/2020 CHIEF COMPLAINT: Syncope. HISTORY OF PRESENT ILLNESS: A 59-year-old male with past medical history significant for hyperlipidemia, obstructive sleep apnea, chronic atrial fibrillation, hypertension, history of VT, history of cor pulmonale, history of chronic kidney disease stage III, history of CAD status post CABG, morbid obesity, GERD, chronic low back pain, depression, history of alcoholism, history of polypharmacy, who comes with syncope. The patient was at his sister's place today. They were getting grocery packs from the car to the house when he felt slightly lightheaded. When he went back to pick again, it got worse and he sat on a chair and kept his head backwards and as per the sister, he was unresponsive for about 5 minutes. When they tried to make his head straight, he seemed to be turning blue and they tried to wake him up and after 5 minutes, he woke up and seemed confused for a couple of minutes. There was no seizure-like activity, but he had bladder incontinence during the episode. He has not had these kind of episodes before. Denies any chest pain. No shortness of breath. Still is somewhat lightheaded. No headache, no blurred visions, no earache, no runny nose, no sore throat, no cough. He gets short of breath on exertion. He has chronic left shoulder pain which he says is slightly worse because of all this happening. He is slightly nauseous. No abdominal pain, no diarrhea or constipation. He has on and off blood in the stools, which is chronic because of tear in his anal region. Normal bladder movements. No rash seen. Currently resting comfortably and hemodynamically stable. ALLERGIES: MORPHINE. PAST MEDICAL HISTORY: As mentioned above. PAST SURGICAL HISTORY: Hip surgery, quadruple bypass surgery in 2001, dental surgery, removal of femur lesion in the knee. MEDICATIONS: The patient is on Lexapro 10 mg p.o. daily, hydrocodone/acetaminophen 5/325 mg 1 tablet every 6 hours p.r.n. for pain, Lopressor 50 mg p.o. b.i.d., potassium chloride 40 mEq p.o. b.i.d., sucralfate 1 gram p.o. daily, diclofenac sodium 2 g topically on skin b.i.d., Abilify 5 mg p.o. daily, nitroglycerin 0.4 mg sublingual p.r.n., Ambien 5 mg p.o. at bedtime p.r.n., Imdur 30 mg p.o. daily, Demadex 20 mg p.o. b.i.d., spironolactone 25 mg p.o. daily, gabapentin 600 mg p.o. t.i.d., Flomax 0.4 mg p.o. at bedtime, Celebrex 200 mg p.o. b.i.d., Topamax 25 mg p.o. b.i.d., Eliquis 5 mg p.o. b.i.d., Crestor 40 mg p.o. daily, Zaroxolyn 2.5 mg p.r.n., not more than 3 times a month, ferrous sulfate 325 mg p.o. daily, aspirin 81 mg p.o. daily, Advair Diskus 250/50 mcg 1 puff b.i.d., Seroquel 200 mg p.o. at bedtime, Lamictal 200 mg p.o. t.i.d., albuterol 2 puffs q.i.d. FAMILY HISTORY: Family history on file, father and mother . SOCIAL HISTORY: . Former smoker, quit in 2016, prior to that smoked 1 pack a day for 2 years. No alcohol use. As per EPIC, he smokes marijuana every other day. REVIEW OF SYSTEMS: As per HPI. Rest of the review of systems negative. PHYSICAL EXAMINATION: GENERAL: The patient is morbidly obese, not in acute distress. VITAL SIGNS: Temperature 36.7, pulse 61, respiratory rate 17, blood pressure 94/59, oxygen 98% on room air. HEENT: No pallor, no icterus. Pupils equal, round, reactive to light. NECK: No JVD, no neck masses. CARDIOVASCULAR: S1, S2 heard. Regular rate and rhythm, no murmur, no gallop. RESPIRATORY SYSTEM: Normal AP diameter. No accessory muscle use. No wheezing, no crackles. ABDOMEN: Soft, bowel sounds present, nontender. No distention. CENTRAL NERVOUS SYSTEM: Cranial nerves II-XII grossly intact. Nonfocal. EXTREMITIES: Bilateral lower extremity trace edema present. No erythema seen. LABORATORY DATA: WBC 13.1, hemoglobin 14.2, hematocrit 43.2, platelets 208. PT 11.4, INR 1.1. Sodium 137, potassium 4.4, chloride 107, bicarbonate 25, BUN 14, creatinine 1.8, serum glucose of 293, calcium 9.4, magnesium 2.3, total bilirubin 0.5, AST 18, ALT 32, alkaline phosphatase 133. Troponin 1 of 0.021. TSH of 1.6. IMAGING DATA: Chest x-ray, cardiomegaly without acute process. CT of the head, no acute intracranial abnormality seen. EKG: Atrial fibrillation with a slow ventricular response at the rate of 54, nonspecific T-wave abnormality seen. ASSESSMENT AND PLAN: This is a 59-year-old male who presents with syncope. 1. Syncope. The patient was bringing groceries when he had this episode, sat in a chair and was unresponsive for 5 minutes as per the sister and he seemed to turn blue and after that he was confused for a couple of minutes and was back to normal and he had urinary incontinence during the episode. We will monitor in the tele floor for any dysrhythmias. Currently stable. EKG shows AFib, which is chronic for him.Labs, electrolytes are okay. We will do serial cardiac enzymes and echocardiogram. Consult cardiology in a.m. and will do EEG studies. 2. History of coronary artery disease status post coronary artery bypass graft, on Lopressor, statin, and aspirin. Currently stable. 3. Hyperlipidemia, on statin. 4. Obstructive sleep apnea, on CPAP at bedtime. 5. Chronic atrial fibrillation, rate controlled with Lopressor, on Eliquis. 6. History of chronic kidney disease stage III, creatinine of 1.8, seems to be at baseline. We will follow the labs. 7. Morbid obesity, needs counseling. 8. Chronic back pain. Continue his home pain medication. 9. History of depression. Continue his home medication of Lexapro, Seroquel, Lamictal, and Topamax. 10. History of hypertension, on diuretics, Imdur, Lopressor. We will monitor his blood pressure. 11. Deep venous thrombosis prophylaxis, on Eliquis. DISPOSITION: Closely monitor in the tele. Level 1 full code. Expect to discharge home and follow with family doctor. Addendum: During sleeping his heart rates was going down into 30's and low 40's and was having Pauses. Held Lopressor. Also was having apneic episodes. Did ABG which was ok. Patient was asymptomatic at that time. But in the morning when he was getting eeg study he again suddenly became unresponsive for short period of time which was correlated with with heart rate in 30's as per nursing staff. Patient denies any chest pain or sob. Alert and Oriented currently. BP ok. Am labs ok. Lyme scree negative. Tachy tor syndrome? Await cardio input. LAURIED
[2020-03-04] MEDS ORDERED: SODIUM CHLORIDE 0.9% 500 ML IV SCH (02:45)
[2020-03-04] MEDS ORDERED: ATROPINE SULFATE 0.1 MG/ML 10ML SYR IV PRN (02:57)
[2020-03-04 03:47] LABS: Allen Test Pos (Pos); Base Excess ABG -2.9 mEq/L (-9-1.8); HCO3 ABG 22 mmol/L (19-24); Oxygen Saturation ABG 96.8 % (90-95); PCO2 ABG 38 mmHg (35-46); PO2 ABG 88 mmHg (80-95); pH ABG 7.38 (7.35-7.45)
[2020-03-04 06:00] LABS: Basophils # (auto) 0.04 K/uL (0-0.2); Basophils % (auto) 0.4 %; Eosinophils # (auto) 0.26 K/uL (0-0.5); Eosinophils % (auto) 2.8 %; Hematocrit (blood only) 44.2 % (42-52); Hemoglobin 14.2 g/dL (14.0-18.0); Immature Granulocytes # (auto) 0.05 K/uL (0.00-0.02); Immature Granulocytes % (auto) 0.5 %; Lymphocytes # (auto) 2.57 K/uL (1.2-3.4); Lymphocytes % (auto) 27.4 %; Mean Corpuscular Hemoglobin 28.3 pg (25-34); Mean Corpuscular Hgb Conc 32.1 g/dL (32-36); Mean Platelet Volume 10.8 fL (7.4-10.4); Monocytes # (auto) 0.84 K/uL (0.11-0.59); Neutrophils # (auto) 5.62 K/uL (1.4-6.5); Neutrophils % (auto) 59.9 %; Platelet Count 198 K/uL (130-400); RDW Coefficient of Variation 17.1 % (11.5-14.5); RDW Standard Deviation 55.1 fL (36.4-46.3); Red Blood Count 5.02 M/uL (4.7-6.1); White Blood Count 9.38 K/uL (4.8-10.8)
[2020-03-04 06:28] LABS: BUN Creatinine Ratio 9.3 (10-20); Creatinine Clr Calc Pharmacy 62.8 ml/min; Est GFR (Non-African American) 43.2; Magnesium 2.3 mg/dl (1.8-2.4)
[2020-03-04 06:32] LABS: Troponin I 0.03 ng/ml (0-0.045)
[2020-03-04 06:51] LABS: Lyme Ab IgG w/WB Rflx Negative (Negative); Lyme Ab IgM w/WB Rflx Negative (Negative)
[2020-03-04] MEDS: lamoTRIgine 100 MG TAB PO SCH ×2 (08:39→20:23)
[2020-03-04] MEDS: APIXABAN 5 MG TABLET PO SCH (08:39)
[2020-03-04] MEDS: TOPIRAMATE 25 MG TAB PO SCH ×2 (08:39→20:21)
[2020-03-04] MEDS: CeleBREX 200 MG CAP PO SCH ×2 (08:39→20:22)
[2020-03-04] MEDS: FLUTICASONE/VILANTEROL 200/25MCG 14 PUFFS/INHALER INH SCH (08:40)
[2020-03-04] MEDS: ISOSORBIDE MONO EXTENDED REL 30 MG TABCR PO SCH (08:41)
[2020-03-04] MEDS: GABAPENTIN 600 MG TAB PO SCH ×3 (08:41→20:21)
[2020-03-04] MEDS: PANTOprazole 40 MG TAB PO SCH (08:42)
[2020-03-04] MEDS: FERROUS SULFATE 325 MG TAB PO SCH (08:42)
[2020-03-04] MEDS: ROSUVASTATIN CALCIUM 20 MG TAB PO SCH (08:43)
[2020-03-04] MEDS: ESCITALOPRAM OXALATE 10 MG TAB PO SCH (08:43)
[2020-03-04] MEDS: ARIPiprazole 5 MG TAB PO SCH (08:43)
[2020-03-04] MEDS: DICLOFENAC SOD 1% GEL 100 GM TUBE EXT SCH ×2 (08:44→20:24)
[2020-03-04] MEDS: ASPIRIN 81 MG ECTAB PO SCH (08:44)
[2020-03-04] MEDS ORDERED: SPIRONOLACTONE 25 MG TAB PO SCH (09:00)
[2020-03-04] MEDS ORDERED: ALBUTEROL HFA 8 GM INHALER INH PRN (09:00)
[2020-03-04] MEDS ORDERED: TORSEMIDE 20 MG TAB PO SCH (09:00)
[2020-03-04] MEDS ORDERED: MoRPHine SULFATE 4 MG/ML 1 ML CARP\\VIAL IV PRN (09:28)
[2020-03-04] MEDS ORDERED: TRAMADOL HCL 50 MG TABLET PO ONE (09:45)
--- NOTE | 2020-03-04 10:30 | Cardiology Consultation ---
Date of Consultation March 04, 2020 Assessment & Plan (1) Syncope: (2) SSS (sick sinus syndrome): (3) Obesities, morbid: Mr Mir has a history of morbid obesity , weight ~310 lbs, BMI 50 kg/ m2. He has a history of premature coronary heart disease status post coronary bypass grafting x4 in 2001 at the age of 43. He has a history of heart failure with preserved ejection fraction, with clinical right heart failure symptoms in the past for which he is on aggressive diuretic therapy including torsemide, spironolactone, and occasional metolazone. He denies any recent anginal symptoms, but does have several months of dizziness and presyncope culminating in loss of consciousness episodes witnessed yesterday at home, and again this morning 536, with a prolonged pause (50 seconds of rated cardia with agonal QRS complexes noted) and had spontaneous conversion back to atrial fibrillation. He is on metoprolol tartrate 50 mg twice daily, but I do not think that holding this will be enough to reverse his symptoms. Will hold diuretics, metoprolol, and Eliquis. Plan for single chamber (RV) pacemaker tomorrow 03/05/20 to allow Eliquis to washout. History of Present Illness Attending Physician: Bear Smith MD History of Present Illness Gerson Foster is a 59 year old male seen in cardiology consultation per the request of Dr Vann for the evaluation of syncope. The patient's most recent outpatient visit was in 10/2019at which time compensated chronic right heart / diastolic heart failure was noted. EKG 10/09/19 revealed AF at 67 bpm. Patient presented to the emergency department last evening for evaluation of syncope. The patient and his sister were unloading groceries and he became lightheaded. His symptoms worsened and he sat down in the chair, and he was witnessed to have lost consciousness and was unresponsive for approximately 5 minutes per bystander report. There is concerned that he is becoming cyanotic. He lost bladder continence. His consciousness ultimately improved to his typical baseline and he was brought to the emergency room by his family. Initial EKG performed at 3:13 AM revealed atrial fibrillation with controlled ventricular response of 55 bpm. Mild nonspecific repolarization changes noted, age-indeterminate anterior infarction could not be excluded based on poor R wave progression. Patient has not had any garfield loss of consciousness episodes such as yesterday previously, but he does note issues with lightheadedness and presyncope for what he describes as the last 3 months. The patient was admitted to the telemetry unit, and at 5:36 AM he was undergoing an EEG, and on telemetry he was noted to have a prolonged episode of bradycardia with occasional agonal beats that lasted a total of 50 seconds with associated reproduction in his loss of consciousness symptoms. A code purple was called, by the time Dr Vann arrived, the patient was apparently awake and oriented and back to his typical baseline. Outpatient Problem List: 1.Premature atherosclerotic coronary disease status post coronary artery bypass grafting x4 in 2001 at age 43. 2. Chronic atrial fibrillation on chronic anticoagulation. 3. Obstructive sleep apnea on BiPAP supplementation with past oxygen use as well nocturnally. 4.Morbid obesity. 5.History of hyperlipidemia. 6.History of hypertension. 7.Chart history of cor pulmonale with right heart failure and edema. Allergies Allergy/AdvReac Type Severity Reaction Status Date / Time morphine AdvReac Mild nausea and Verified 01/31/19 00:57 vomiting Home Medications Home Medications Medication Instructions Recorded Confirmed Type albuterol sulfate [ProAir HFA] 2 puff INHALATION QID PRN 05/04/18 03/03/20 History ferrous sulfate 325 mg PO DAILY 05/04/18 03/03/20 History gabapentin 600 mg PO TID 05/04/18 03/03/20 History hydroxyzine HCl 50 mg PO BID PRN 05/04/18 03/03/20 History isosorbide mononitrate 30 mg PO QAM 05/04/18 03/03/20 History lamotrigine [Lamictal] 200 mg PO BID 05/04/18 03/03/20 History metoprolol tartrate 50 mg PO BID 05/04/18 03/03/20 History nitroglycerin [Nitrostat] 0.4 mg SUBLINGUAL DIRECTED PRN 05/04/18 03/03/20 History omeprazole 40 mg PO DAILY 05/04/18 03/03/20 History spironolactone 25 mg PO DAILY 05/04/18 03/03/20 History sucralfate [Carafate] 1 g PO HS 05/04/18 03/03/20 History topiramate [Topamax] 25 mg PO BID 05/04/18 03/03/20 History zolpidem [Ambien] 5 mg PO HS PRN 05/04/18 03/03/20 History albuterol sulfate 2.5 mg INHALATION Q4 PRN 03/03/20 03/03/20 History apixaban [Eliquis] 5 mg PO BID 03/03/20 03/03/20 History aripiprazole [Abilify] 5 mg PO DAILY 03/03/20 03/03/20 History aspirin [Aspir-81] 81 mg PO DAILY 03/03/20 03/03/20 History celecoxib [Celebrex] 200 mg PO BID 03/03/20 03/03/20 History diclofenac sodium [Voltaren] 2 g TOPICAL BID 03/03/20 03/03/20 History escitalopram oxalate [Lexapro] 10 mg PO DAILY 03/03/20 03/03/20 History fluticasone propion-salmeterol 1 inh INHALATION BID 03/03/20 03/03/20 History [Advair Diskus] metolazone 2.5 mg PO UD 03/03/20 03/03/20 History oxycodone-acetaminophen [Percocet] 1 tab PO Q6 PRN 03/03/20 03/03/20 History potassium chloride [Klor-Con M20] 40 meq PO BID 03/03/20 03/03/20 History quetiapine [Seroquel] 200 mg PO HS 03/03/20 03/03/20 History rosuvastatin [Crestor] 40 mg PO DAILY 03/03/20 03/03/20 History tamsulosin 0.4 mg PO HS 03/03/20 03/03/20 History torsemide 20 mg PO BID 03/03/20 03/03/20 History Patient History Medical History CAD (coronary artery disease) (Chronic) CAD (coronary artery disease) Chronic atrial fibrillation (Chronic) Chronic back pain (Chronic) CKD (chronic kidney disease) stage 3, GFR 30-59 ml/min Cor pulmonale (Chronic) Depression (Chronic) HTN (hypertension) (Chronic) Hyperlipidemia (Chronic) Hypertension Obesities, morbid (Chronic) OSCAR (obstructive sleep apnea) (Chronic) Volume overload Surgical History S/P CABG x 4 Social History Smoking Status: Former smoker Second Hand Exposure: Yes; Do You Dip or Chew Tobacco: Yes; Tobacco Cessation Education Requested by Patient: No Hx Alcohol Use: No Hx Substance Use: Yes Last Used Substance: Hours (ago) Last Used Substance Other:: this morning Substance Use Type Other:: Patient states uses medical/ pharmaceutical marijuana Preferred Language: Swedish Communication Ability: Effective Communication Ability Comment: Patient stated that he "isn't able to read or very well" Hearing Ability: Normal 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 3 Adult children in [place]) Feels Safe at Home: Yes Safety Concerns: Feels Safe At This Time Review of Systems Review of Systems: All systems reviewed & are unremarkable except as noted in HPI & below Physical Exam Physical Exam: Temp Pulse Resp BP Pulse Ox 36.6 C 58 L 18 87/51 L 100 03/04/20 07:10 03/04/20 07:10 03/04/20 07:10 03/04/20 07:10 03/04/20 07:10 Constitutional: WD/WN, vitals as above Respiratory: normal respiratory effort, lungs clear to auscultation Cardiovascular: Rate/Rhythm: + irregularly irregular Heart Sounds: no murmur Vessels: no JVD Extremities: no edema Gastrointestinal (Abdomen): normal bowel sounds, soft, nontender, no hepatosplenomegaly Neurologic: PERRL, EOMI, accommodation nl, no face palsy, no dysarthria Results & Data ([facility]) Vital Signs (Past 12 Hours) Vital Signs Temp Pulse Pulse Resp BP Pulse Ox 03/04/20 07:10 36.6 C 58 L 18 87/51 L 100 03/04/20 06:00 50 L 16 117/80 97 03/04/20 04:35 41 L 16 101/64 97 03/04/20 03:25 36.5 C 54 L 22 120/89 97 03/04/20 03:15 37 C 65 20 87/56 L 96 03/04/20 03:13 34 L 14 80/43 L 77 L 03/04/20 01:47 70 03/04/20 01:04 87/43 L 03/04/20 00:12 86/45 L 03/04/20 00:11 86/47 L 03/03/20 23:06 36.9 C 69 20 117/67 97 03/03/20 22:50 66 18 97 Laboratory Results Cardiac Enzymes 03/03/20 03/03/20 03/04/20 Range/Units 18:30 22:12 05:18 AST 18 (15-37) U/L Troponin I 0.021 0.074 H* 0.030 (0-0.045) ng/ml Coagulation 03/03/20 Range/Units 18:30 PT 11.4 (9.0-12.0) Seconds CBC 03/03/20 03/04/20 Range/Units 18:30 05:18 WBC 13.15 H 9.38 (4.8-10.8) K/uL RBC 4.95 5.02 (4.7-6.1) M/uL Hgb 14.2 14.2 (14.0-18.0) g/dL Hct 43.2 44.2 (42-52) % Plt Count 208 198 (130-400) K/uL Neut # (Auto) 10.09 H 5.62 (1.4-6.5) K/uL Lymph # (Auto) 1.92 2.57 (1.2-3.4) K/uL Lamar # (Auto) 0.92 H 0.84 H (0.11-0.59) K/uL Eos # (Auto) 0.14 0.26 (0-0.5) K/uL Baso # (Auto) 0.02 0.04 (0-0.2) K/uL Comprehensive Metabolic Panel 03/03/20 03/04/20 Range/Units 18:30 05:18 Sodium 137 140 (136-145) mmol/L Potassium 4.4 4.0 (3.5-5.1) mmol/L Chloride 107 112 H (98-107) mmol/L Carbon Dioxide 25 23 (21-32) mmol/L BUN 14 16 (7-18) mg/dl Creatinine 1.86 H 1.71 H (0.6-1.4) mg/dl Glucose 93 99 (70-99) mg/dl Calcium 9.4 9.0 (8.5-10.1) mg/dl AST 18 (15-37) U/L ALT 32 (12-78) U/L Alkaline Phosphatase 133 H (45-117) U/L Total Protein 6.5 (6.4-8.2) gm/dl Albumin 3.2 L (3.4-5.0) gm/dl Intake and Output 03/03/20 03/04/20 03/04/20 22:59 06:59 14:59 Intake Total 1000 / 1500 500 / 1500 1000 / 1000 Output Total 550 / 550 Balance 450 / 950 500 / 950 1000 / 1000 Intake: IV 1000 / 1500 500 / 1500 1000 / 1000 Nss 1000ML 1,000 ml @ 75 mls/hr 1000 / 1000 1000 / 1000 IV .[id number] [facility] Rx#:[id number] Nss 500 ml @ 500 mls/hr IV .Q1H 500 / 500 [facility]INE Rx#:[id number] Output: Urine 550 / 550 Other: Weight 140.2 kg Diagnostic Findings Repeat EKG this morning at 03/04/2020 at 724 revealed atrial fibrillation at 56 bpm with nonspecific diffuse T wave flattening. Echocardiogram performed this morning have been reviewed independently by the undersigned. Atrial fibrillation in the range of 50 to 55 bpm was present during the study: The left ventricular wall motion was normal, LVEF normal 60 to 65%, right ventricle size and systolic function was normal. Mild aortic valve sclerosis without stenosis noted. Doppler findings do not suggest pulmonary hypertension. (1) Syncope Syncope type: unspecified Qualified Code(s): R55 - Syncope and collapse
--- NOTE | 2020-03-04 11:04 | Communication Note ---
Date of Service: March 04, 2020 I called pt's sister Alejandrina. We reviewed the event she witnessed yesterday and the the recurrent event this am. Although pt has issues including sleep apnea, and is on metoprolol, given the circumstances , two significant episode (non associated with sleeping) with profound prolonged bradycardia witness at time of event at 5:36 am today recommend pacemaker placement. Alejandrina describes two additional episodes when pt had near syncope recently and described like his legs were about to give out.
--- NOTE | 2020-03-04 11:20 | XRay Report ---
XR shoulder LT min 2V routine HISTORY: 59 years-old Male Fall acute left shoulder pain COMPARISON: Chest radiograph 03/03/2020 TECHNIQUE: 2 views of the left shoulder FINDINGS: Mild glenohumeral and AC joint osteoarthritis. No acute fracture, dislocation or opaque foreign body. Prior median sternotomy and CABG. Imaged lung fajardo appear clear. IMPRESSION: No acute fracture or dislocation. ACT 112: Negative or not required by law. The above report was generated using voice recognition software. It may contain grammatical, syntax o r spelling errors. Electronically signed by: Darrell Bland M.D. 03/04/2020 11:19 AM
[2020-03-04] MEDS ORDERED: MoRPHine SULFATE 2 MG/ML CARP IV PRN (11:27)
[2020-03-04] MEDS ORDERED: LIDOCAINE HCL 1% 20 ML VIAL ONE (12:39)
[2020-03-04] MEDS ORDERED: BACITRACIN OINT 0.9 GM PKT ONE (12:39)
[2020-03-04] MEDS ORDERED: BACITRACIN INJ 50,000 UNIT VIAL ONE (12:39)
--- NOTE | 2020-03-04 12:42 | Communication Note ---
Date of Service: March 04, 2020 Called to see the patient emergently. He had a another extensive asystole event and went unresponsive. He is alert and oriented now. The plan was for per manent pacemaker tomorrow because the patient was given Eliquis today. I do not think we can wait to let the Eliquis wear off. The decision is between a temporary pacemaker or to put a permanent pacemaker in today. I have asked Dr. Slater to consider putting in a pacemaker today. He agrees the risk of bleeding while on Eliquis is relatively the same if he put a temporary line in as opposed to a permanent pacemaker. He is agreeable to proceed with the pacemaker. I left a voicemail with the patient's Sister Kat to inform her of our need to proceed urgently for a permanent pacemaker.
[2020-03-04] MEDS ORDERED: fentaNYL citrate 100 MCG/2 ML VIAL ONE (12:48)
[2020-03-04] MEDS ORDERED: MIDAZOLAM HCL 5 MG/ML 1 ML VIAL ONE (12:48)
[2020-03-04] MEDS ORDERED: CEFAZOLIN 250 MG/ML 1 GM VIAL ONE ×2 (12:48→12:53)
[2020-03-04] MEDS ORDERED: WATER, STERILE FOR INJ 10 ML VIAL ONE ×2 (12:51→12:53)
--- NOTE | 2020-03-04 13:14 | History & Physical Bridge Note ---
Date of Service March 04, 2020 History & Physical Bridge Note I have examined the patient, reviewed the History & Physical and in the interval since the performance of the History & Physical I have noted the following changes of clinical significance: The patient has continued to have long pauses, a pause of 50 seconds occurred. He will need either temporary pacemaker or permanent, both have similar risk of perforation and bleeding and he is on Eliquis. I agree we should go ahead with permanent pacemaker implantation today rather than temporary. The patient understands the increased risk of bleeding. Consent obtained. Consent for sedation obtained.
--- NOTE | 2020-03-04 13:17 | Pre Anesthesia Assessment ---
Date of Service March 04, 2020 Pre Sedation Assessment Vital Signs Temp Pulse Pulse Resp BP BP Pulse Ox 03/04/20 11:23 36.7 C 51 L 18 121/63 98 03/04/20 07:10 36.6 C 58 L 18 87/51 L 100 03/04/20 06:00 50 L 16 117/80 97 03/04/20 04:35 41 L 16 101/64 97 03/04/20 03:25 36.5 C 54 L 22 120/89 97 03/04/20 03:15 37 C 65 20 87/56 L 96 03/04/20 03:13 34 L 14 80/43 L 77 L 03/04/20 01:47 70 03/04/20 01:04 87/43 L 03/04/20 00:12 86/45 L 03/04/20 00:11 86/47 L 03/03/20 23:06 36.9 C 69 20 117/67 97 03/03/20 22:50 66 18 97 03/03/20 21:23 37 C 68 22 150/91 H 95 03/03/20 21:20 64 03/03/20 20:40 61 17 98 03/03/20 20:32 70 18 94/59 L 97 03/03/20 20:30 72 18 96 03/03/20 20:20 64 16 98 03/03/20 20:10 60 14 97 03/03/20 20:05 76 23 100 03/03/20 19:31 64 22 108/60 99 03/03/20 19:00 55 L 18 112/69 99 03/03/20 18:30 57 L 20 126/72 99 03/03/20 18:27 61 17 113/74 99 03/03/20 17:42 97 03/03/20 17:38 53 L 14 95/65 L 97 03/03/20 15:50 36.7 C 70 18 110/65 97 Cardiovascular + irregularly irregular Respiratory normal respiratory effort, lungs clear to auscultation Pre-Sedation Airway Assessment Smoking Status: Former smoker Hx Sleep Apnea: No Hx Difficult Intubation: No Short, Thick Neck: No Thyromental Distance: < 3.5 Finger Breadths Oral Cavity: + WNL Mallampati Class: III ASA: ASA3 NPO Status Date of Last Intake of Fluids: 03/04/20 Time of Last Intake of Fluids: 11:00 Last Oral Intake of Fluids Comment: Patient had ice cream at 11:00, this procedure is urgent Date of Last Intake of Solid Food: 03/04/20 Time of Last Intake of Solid Foods: 11:00 Last Intake of Solids Comment: The patient had ice cream at 11:00, this procedure is urgent Procedure Planning Contraindications for Sedation: none Current Medications Reviewed: Yes Notes The planned sedation has been discussed with the patient. Informed Consent was obtained. I have identified the patient, determined the appropriateness of sedation and have assessed the patient immediately prior to the procedure. All medicine(s) and interventions are by my order.
--- NOTE | 2020-03-04 14:15 | Electrophysiology Report ---
Date of Service March 04, 2020 Electrophysiology Procedure Electrophysiology Procedure Report Preoperative diagnosis: Symptomatic bradycardia, atrial fibrillation Postoperative diagnosis: Same Procedure: Single-chamber pacemaker implantation Surgeon: Murphy Pennington MD Anesthesia: Local with sedation Estimated blood loss: 20 cc Complications: None Specimens: None Disposition: Defense Analyst recovery: Procedure details: After obtaining informed consent for the procedure, the patie nt was brought to the laboratory and prepped and draped in the standard sterile manner. Dye was injected the left arm IV site to opacify the left subclavian vein. The subclavian vein was identified and found to be free of obstruction. The left prepectoral region was anesthetized with 1% lidocaine local anesthetic and left axillary venipuncture was performed by percutaneous technique and a guidewire placed through the left subclavian vein into the superior vena cava. The area was further infiltrated with 1% lidocaine local anesthetic and a 5 cm incision was made parallel to the left clavicle and 2 cm below it and carried down to the anterior pectoralis fascia. A pacemaker pocket was formed by blunt dissection anterior to the pectoralis fascia and a bacitracin-soaked sponge (50,000 units in 50 cc normal saline solution) was placed in the pocket. An 8 Serbian [employer] lead introducer was placed over the guidewire into the left subclavian vein, the dilator and guidewire were removed and a bipolar active fixation steroid tipped ventricular lead was advanced through the introducer into the superior vena cava. A guidewire was placed through the introducer and the introducer was stripped from the lead and guidewire. Using a curved stylette the ventricular lead was advanced through the right ventricular outflow tract into the pulmonary artery and then using a straight stylette was positioned in the right ventricular apex. The screw was extended fixing the lead in position. Pacing and sensing thresholds were evaluated in bipolar configuration and are recorded on the implant data sheet. Diaphragmatic pacing was evaluated as noted on the data sheet. Once the lead was in position it was attached to the anterior pectoralis fascia using 2 sutures of 2-0 silk around the lead collar. The bacitracin-soaked sponge was removed from the pocket, hemostasis was obtained, the pacemaker was attached to the lead and placed in the pocket with the lead coiled beneath it. The incision was closed with a running double subcutaneous closure of 3-0 Vicryl absorbable suture, followed by running subcuticular skin closure of 4-0 Vicryl absorbable suture. Bacitracin ointment was placed on the incision and a dressing applied. [facility] [place] Electrophysiology codes Pacing Procedure 1: Pacin Insert/Replace Pacer A & V Miscellaneous Procedures Procedure 1: EP Miscellaneous: 18841 Contrast injection for venography Procedure 2: EP Miscellaneous: 13303-07 Vengraphy, extremity
[2020-03-04] MEDS ORDERED: ACETAMINOPHEN W/CODEINE #3 1 TAB PO PRN (14:23)
[2020-03-04] MEDS ORDERED: ACETAMINOPHEN 325 MG TAB PO PRN (14:23)
--- NOTE | 2020-03-04 15:22 | Hospitalist Progress Note ---
Date of Service March 04, 2020 Assessment & Plan (1) SSS (sick sinus syndrome): Sick sinus syndrome Multiple syncopal episodes Afib with slow ventricular response S/P Single-chamber pacemaker implantation POD #0 CT head:No acute intracranial abnormality. EEG:pending Beta-blockers currently on hold Monitor on telemetry Appreciate cardiology input Resume Eliquis as able H/O CAD S/P CABG Lopressor held due to above Continue statin,aspirin, Isosorbide Hyperlipidemia On Rosuvastatin Obstructive sleep apnea CPAP at bedtime Chronic atrial fibrillation Lopressor held Resume Eliquis as able CKD III Creatinine at baseline Monitor renal function Avoid Nephrotoxic agents as able Morbid obesity BMI:49.9 Chronic back pain Chronic Left shoulder pain Shoulder X ray: No acute fracture or dislocation. Pain control Follow up as outpatient Depression Continue home medications HTN On diuretics, Imdur, Lopressor DVT Px: Resume Eliquis as able Code Status Full code Disposition Expect to discharge Home Admission and Anticipated Discharge Date Admission Date: March 04, 2020 Subjective Patient is seen and examined at bedside Complains of chronic left shoulder pain Had transient asystole this morning Planned for pacemaker placement today Updated patient's sister Denies any chest pain, shortness of breath, dizziness, nausea, abdominal pain Review of Systems Review of Systems: All systems reviewed & are unremarkable except as noted in HPI & below Physical Exam Physical Exam: Physical Exam: Vitals signs as noted above General Appearance:Morbidly Obese, no apparent distress Head: normocephalic, Atraumatic Eyes: normal inspection, EOMI Neck: supple, Trachea midline Respiratory/Chest: Normal breath sounds, CTA, No accessory muscle use Cardiovascular: Irregularly irregular, bradycardia, No murmur Abdomen/GI:Soft, Non tender, Bowel sounds present Extremities/Musculoskelatal:normal inspection, Trace edema Neurologic/Psych:AAOX3, grossly no focal neurological deficits Skin: normal color, warm Results & Data Results & Data ([facility]) Vital Signs (Past 12 Hours) Vital Signs Temp Pulse Pulse Resp BP Pulse Ox 03/04/20 14:50 61 16 146/101 H 97 03/04/20 14:40 18 134/97 98 03/04/20 14:25 36.7 C 51 L 18 121/63 98 03/04/20 11:23 36.7 C 51 L 18 121/63 98 03/04/20 08:00 53 L 03/04/20 07:10 36.6 C 58 L 18 87/51 L 100 03/04/20 06:00 50 L 16 117/80 97 03/04/20 04:35 41 L 16 101/64 97 03/04/20 03:25 36.5 C 54 L 22 120/89 97 Laboratory Results Short CBC 03/03/20 03/04/20 Range/Units 18:30 05:18 WBC 13.15 H 9.38 (4.8-10.8) K/uL Hgb 14.2 14.2 (14.0-18.0) g/dL Hct 43.2 44.2 (42-52) % Plt Count 208 198 (130-400) K/uL BMP 03/03/20 03/04/20 18:30 05:18 Sodium 137 140 Potassium 4.4 4.0 Chloride 107 112 H Carbon Dioxide 25 23 BUN 14 16 Creatinine 1.86 H 1.71 H Glucose 93 99 Calcium 9.4 9.0 Cardiac Enzymes 03/03/20 03/03/20 03/04/20 Range/Units 18:30 22:12 05:18 Troponin I 0.021 0.074 H* 0.030 (0-0.045) ng/ml Liver Function 03/03/20 Range/Units 18:30 Total Bilirubin 0.5 (0.2-1) mg/dl AST 18 (15-37) U/L ALT 32 (12-78) U/L Alkaline Phosphatase 133 H (45-117) U/L Albumin 3.2 L (3.4-5.0) gm/dl
[2020-03-04] MEDS: OXYCODONE/ACETAMINOPHEN 5mg/325mg TAB PO PRN (17:47)
--- NOTE | 2020-03-04 18:28 | Electroencephalogram ---
EEG Procedure Note Date of Service March 04, 2020 Start / End Times Start Time: 543 End Time: [address] Vann History Syncope with possible convulsive movements Home Medication List Home Medications Medication Instructions Recorded Confirmed Type albuterol sulfate [ProAir HFA] 2 puff INHALATION QID PRN 05/04/18 03/03/20 History ferrous sulfate 325 mg PO DAILY 05/04/18 03/03/20 History gabapentin 600 mg PO TID 05/04/18 03/03/20 History hydroxyzine HCl 50 mg PO BID PRN 05/04/18 03/03/20 History isosorbide mononitrate 30 mg PO QAM 05/04/18 03/03/20 History lamotrigine [Lamictal] 200 mg PO BID 05/04/18 03/03/20 History metoprolol tartrate 50 mg PO BID 05/04/18 03/03/20 History nitroglycerin [Nitrostat] 0.4 mg SUBLINGUAL DIRECTED PRN 05/04/18 03/03/20 History omeprazole 40 mg PO DAILY 05/04/18 03/03/20 History spironolactone 25 mg PO DAILY 05/04/18 03/03/20 History sucralfate [Carafate] 1 g PO HS 05/04/18 03/03/20 History topiramate [Topamax] 25 mg PO BID 05/04/18 03/03/20 History zolpidem [Ambien] 5 mg PO HS PRN 05/04/18 03/03/20 History albuterol sulfate 2.5 mg INHALATION Q4 PRN 03/03/20 03/03/20 History apixaban [Eliquis] 5 mg PO BID 03/03/20 03/03/20 History aripiprazole [Abilify] 5 mg PO DAILY 03/03/20 03/03/20 History aspirin [Aspir-81] 81 mg PO DAILY 03/03/20 03/03/20 History celecoxib [Celebrex] 200 mg PO BID 03/03/20 03/03/20 History diclofenac sodium [Voltaren] 2 g TOPICAL BID 03/03/20 03/03/20 History escitalopram oxalate [Lexapro] 10 mg PO DAILY 03/03/20 03/03/20 History fluticasone propion-salmeterol 1 inh INHALATION BID 03/03/20 03/03/20 History [Advair Diskus] metolazone 2.5 mg PO UD 03/03/20 03/03/20 History oxycodone-acetaminophen [Percocet] 1 tab PO Q6 PRN 03/03/20 03/03/20 History potassium chloride [Klor-Con M20] 40 meq PO BID 03/03/20 03/03/20 History quetiapine [Seroquel] 200 mg PO HS 03/03/20 03/03/20 History rosuvastatin [Crestor] 40 mg PO DAILY 03/03/20 03/03/20 History tamsulosin 0.4 mg PO HS 03/03/20 03/03/20 History torsemide 20 mg PO BID 03/03/20 03/03/20 History Inpatient Medication List Aripiprazole (Abilify) 5 mg PO DAILY [facility] Stop: 04/03/20 08:59 Last Admin: 03/04/20 08:43 Dose: 5 mg Documented by: [id number] Aspirin (Ecotrin Ectab) 81 mg PO DAILY [facility] Stop: 04/03/20 08:59 Last Admin: 03/04/20 08:44 Dose: 81 mg Documented by: [id number] Celecoxib (Celebrex) 200 mg PO BID [facility] Stop: 04/02/20 21:18 Last Admin: 03/04/20 08:39 Dose: 200 mg Documented by: [id number] Admin: 03/03/20 22:27 Dose: 200 mg Documented by: [id number] Diclofenac Sodium (Voltaren 1% Top) 2 gm EXT BID [facility] Stop: 04/02/20 21:18 Last Admin: 03/04/20 08:44 Dose: 2 gm Documented by: [id number] Admin: 03/03/20 22:28 Dose: 2 gm Documented by: [id number] Escitalopram Oxalate (Lexapro Tab) 10 mg PO DAILY [facility] Stop: 04/03/20 08:59 Last Admin: 03/04/20 08:43 Dose: 10 mg Documented by: [id number] Ferrous Sulfate (Feosol) 325 mg PO DAILY [facility] Stop: 04/03/20 08:59 Last Admin: 03/04/20 08:42 Dose: 325 mg Documented by: [id number] Fluticasone/Vilanterol (Breo Ellipta 200/25 Mcg Inh) 1 puffs INH DAILY [facility] Stop: 04/03/20 08:59 Last Admin: 03/04/20 08:40 Dose: 1 puffs Documented by: [id number] Gabapentin (Neurontin) 600 mg PO TID [facility] Stop: 04/02/20 21:18 Last Admin: 03/04/20 15:31 Dose: Not Given Documented by: [id number] Admin: 03/04/20 08:41 Dose: 600 mg Documented by: [id number] Admin: 03/03/20 22:26 Dose: 600 mg Documented by: [id number] Isosorbide Mononitrate (Imdur Extended Rel) 30 mg PO QAM [facility] Stop: 04/03/20 08:59 Last Admin: 03/04/20 08:41 Dose: 30 mg Documented by: [id number] Lamotrigine (Lamictal) 200 mg PO BID [facility] Stop: 04/02/20 21:18 Last Admin: 03/04/20 08:39 Dose: 200 mg Documented by: [id number] Admin: 03/03/20 22:26 Dose: 200 mg Documented by: [id number] Oxycodone/Acetaminophen (Percocet 5mg/325mg) 1 tab PO Q6 PRN PRN Reason: Pain Stop: 03/17/20 21:18 Last Admin: 03/04/20 17:47 Dose: 1 tab Documented by: [id number] Admin: 03/03/20 23:19 Dose: 1 tab Documented by: [id number] Pantoprazole Sodium (Protonix) 40 mg PO DAILY [facility] Stop: 04/03/20 08:59 Last Admin: 03/04/20 08:42 Dose: 40 mg Documented by: [id number] Quetiapine Fumarate (Seroquel) 200 mg PO HS [facility] Stop: 04/02/20 21:18 Last Admin: 03/03/20 22:27 Dose: 200 mg Documented by: [id number] Rosuvastatin Calcium (Crestor) 40 mg PO DAILY [facility] Stop: 04/03/20 08:59 Last Admin: 03/04/20 08:43 Dose: 40 mg Documented by: [id number] Sucralfate (Carafate Tab) 1 gm PO HS [facility] Stop: 04/02/20 21:18 Last Admin: 03/03/20 22:26 Dose: 1 gm Documented by: [id number] Tamsulosin HCl (Flomax) 0.4 mg PO HS [facility] Stop: 04/02/20 21:18 Last Admin: 03/03/20 22:26 Dose: 0.4 mg Documented by: [id number] Topiramate (Topamax) 25 mg PO BID [facility] Stop: 04/02/20 21:18 Last Admin: 03/04/20 08:39 Dose: 25 mg Documented by: [id number] Admin: 03/03/20 22:27 Dose: 25 mg Documented by: [id number] Zolpidem Tartrate (Ambien) 5 mg PO HS PRN PRN Reason: Sleep Stop: 04/02/20 21:18 Last Admin: 03/03/20 23:19 Dose: 5 mg Documented by: [id number] Discontinued Medications Apixaban (Eliquis) 5 mg PO BID [facility] Stop: 04/02/20 21:18 Last Admin: 03/04/20 08:39 Dose: 5 mg Documented by: [id number] Admin: 03/03/20 22:27 Dose: 5 mg Documented by: [id number] Bacitracin (Bacitracin) Confirm Administered Dose 1 appln .ROUTE .STK-MED ONE Stop: 03/04/20 12:40 Last Admin: 03/04/20 14:19 Dose: 1 appln Documented by: [id number] Bacitracin (Bacitracin) Confirm Administered Dose 50,000 units .ROUTE .STK-MED ONE Stop: 03/04/20 12:40 Last Admin: 03/04/20 14:19 Dose: 50,000 units Documented by: [id number] Cefazolin Sodium (Ancef) Confirm Administered Dose 2,000 mg .ROUTE .STK-MED ONE Stop: 03/04/20 12:49 Last Admin: 03/04/20 14:19 Dose: 2,000 mg Documented by: [id number] Cefazolin Sodium (Ancef) Confirm Administered Dose 1,000 mg .ROUTE .STK-MED ONE Stop: 03/04/20 12:54 Last Admin: 03/04/20 14:20 Dose: 1,000 mg Documented by: [id number] Fentanyl Citrate (Fentanyl Citrate) Confirm Administered Dose 100 mcg .ROUTE .STK-MED ONE Stop: 03/04/20 12:49 Last Increment: 03/04/20 14:19 Dose: 50 mcg Documented by: [id number] Sodium Chloride (Nss 1000ml) 1,000 mls @ 999 mls/hr IV .Q1H1M [facility] Stop: 03/03/20 17:30 Last Infusion: 03/03/20 19:42 Dose: 0 mls/hr Documented by: [id number] Admin: 03/03/20 17:43 Dose: 999 mls/hr Documented by: [id number] Sodium Chloride (Nss 1000ml) 1,000 mls @ 75 mls/hr IV .[id number] [facility] Stop: 03/04/20 10:38 Last Infusion: 03/04/20 10:22 Dose: 0 mls/hr Documented by: [id number] Admin: 03/03/20 22:31 Dose: 75 mls/hr Documented by: [id number] Sodium Chloride (Nss) 500 mls @ 500 mls/hr IV .Q1H [facility] Stop: 03/04/20 03:44 Last Infusion: 03/04/20 03:50 Dose: 0 mls/hr Documented by: [id number] Admin: 03/04/20 02:47 Dose: 500 mls/hr Documented by: [id number] Lidocaine HCl (Xylocaine 1% (Local)) Confirm Administered Dose 20 ml .ROUTE .STK-MED ONE Stop: 03/04/20 12:40 Last Admin: 03/04/20 14:19 Dose: 20 ml Documented by: [id number] Metoprolol Tartrate (Lopressor) 50 mg PO BID [facility] Stop: 04/02/20 21:18 Last Admin: 03/03/20 22:26 Dose: 50 mg Documented by: [id number] Midazolam HCl (Versed) Confirm Administered Dose 5 mg .ROUTE .STK-MED ONE Stop: 03/04/20 12:49 Last Increment: 03/04/20 14:20 Dose: 2 mg Documented by: [id number] Oxycodone HCl (Roxicodone Immediate Rel) 5 mg PO NOW STA Stop: 03/03/20 19:56 Last Admin: 03/03/20 20:05 Dose: 5 mg Documented by: [id number] Potassium Chloride (Klor-Con M20) 40 meq PO BID17 [facility] Stop: 04/02/20 21:18 Last Admin: 03/03/20 22:26 Dose: 40 meq Documented by: [id number] Spironolactone (Aldactone) 25 mg PO DAILY [facility] Stop: 04/03/20 08:59 Last Admin: 03/04/20 08:42 Dose: 25 mg Documented by: [id number] Sterile Water (Sterile Water Inj) Confirm Administered Dose 20 ml .ROUTE .STK- MED ONE Stop: 03/04/20 12:52 Last Admin: 03/04/20 14:20 Dose: 20 ml Documented by: [id number] Sterile Water (Sterile Water Inj) Confirm Administered Dose 10 ml .ROUTE .STK- MED ONE Stop: 03/04/20 12:54 Last Admin: 03/04/20 14:20 Dose: 10 ml Documented by: [id number] Tramadol HCl (Ultram) 50 mg PO ONE ONE Stop: 03/04/20 09:46 Last Admin: 03/04/20 10:22 Dose: 50 mg Documented by: [id number] Description This is a 21 electrode EEG with a single channel dedicated to limited EKG. The electrodes were placed in accordance with the International 10-20 system. This EEG was done as a bedside recording is of good technical quality with no or few muscle movement artifacts. Photic stimulation was performed. Drowsine ss/sleep were not recorded. Simultaneous video analysis patient movement and behavior was obtained Under these conditions there is evidence for normal-appearing background rhythm in the alpha range of up to 10 Hz and maximum frequency and 20 V a maximum amplitude. This is maximum posterior head regions bilaterally symmetrical. Polymorphic mid frequency to upper frequency theta activity of modest voltage is seen in the central regions in a symmetrical fashion. Beta activity seen bifrontally. No time is evidence for potentially epileptogenic activity. Stimulation provokes a modest driving response without a photoparoxysmal or photo myogenic pattern Interpretation This is a normal EEG during wakefulness without evidence for focal or g eneralized encephalopathy without evidence for potentially epileptogenic activity Clinical Correlation This is a normal EEG revealing no evidence for a focal or generalized encephalopathy or potentially epileptogenic activity but does not exclude the diagnosis of a seizure disorder and clinical correlation would be required Henrik Tovar MD
[2020-03-04] MEDS: TAMSULOSIN HCL 0.4 MG CAP PO SCH (20:22)
[2020-03-04] MEDS: SUCRALFATE 1 GM TAB PO SCH (20:23)
[2020-03-04] MEDS: QUETIAPINE FUMARATE 200 MG TAB PO SCH (20:23)
[2020-03-04] MEDS: ZOLPIDEM TARTRATE 5 MG TAB PO PRN (22:18)
[2020-03-04 22:36] LABS: Appearance Urine Clear (Clear); Bacteria Urine Automated Negative (Negative); Bilirubin Urine Negative (Negative); Blood Urine 2+ (Negative); Color Urine Yellow; Epithelial Cell Urine Auto >30 /lpf (0-5); Glucose Urine UA Negative (Negative); Ketones Urine Negative (Negative); Leukocyte Esterase Urine Negative (Negative); Nitrite Urine Negative (Negative); Protein Urine 2+ (Negative); RBC Urine Automated 0-4 /hpf (0-4); Specific Gravity Urine 1.014 (1.000-1.030); Urobilinogen Urine Negative (Negative)
[2020-03-04 22:51] LABS: Renal Epithelial Cells Urine 0-5 /lpf (0-5)
[2020-03-05] MEDS: OXYCODONE/ACETAMINOPHEN 5mg/325mg TAB PO PRN ×3 (06:35→22:55)
[2020-03-05 07:16] LABS: Hematocrit (blood only) 43.2 % (42-52); Mean Corpuscular Hemoglobin 28.3 pg (25-34); Mean Corpuscular Hgb Conc 32.4 g/dL (32-36); Mean Corpuscular Volume 87.3 fL (80-100); Mean Platelet Volume 10.6 fL (7.4-10.4); Platelet Count 178 K/uL (130-400); RDW Coefficient of Variation 17.3 % (11.5-14.5); RDW Standard Deviation 55.8 fL (36.4-46.3); Red Blood Count 4.95 M/uL (4.7-6.1); White Blood Count 9.16 K/uL (4.8-10.8)
[2020-03-05 07:35] LABS: BUN Creatinine Ratio 9.2 (10-20); Calcium 8.9 mg/dl (8.5-10.1); Creatinine Clr Calc Pharmacy 62.2 ml/min; Est GFR (African American) 49.3; Est GFR (Non-African American) 42.6; Magnesium 2.2 mg/dl (1.8-2.4); Potassium 4.4 mmol/L (3.5-5.1)
--- NOTE | 2020-03-05 07:41 | XRay Report ---
XR chest 2V PA/lateral HISTORY: 59 years-old Male EXACT TIME ORDERED Evaluate for pneumothorax and l status post placement of a left subclavian pacer COMPARISON: Chest radiograph 03/03/2020 TECHNIQUE: PA and lateral views of the chest FINDINGS: Unchanged cardiomegaly. Prior median sternotomy and CABG. Status post placement of a single lead left subclavian pacer. No postprocedural pneumothorax. No pleural effusion, airspace consolidation or ove rt pulmonary edema. Hiatal hernia. Calcified granuloma of the right lower lobe. Degenerative changes of the shoulders and spine. IMPRESSION: 1. Status post placement of a single lead left subclavian pacer. No postprocedural pneumothorax ident ified. 2. Cardiomegaly with prior median sternotomy and CABG. ACT 112: Negative or not required by law. The above report was generated using voice recognition software. It may contain grammatical, syntax o r spelling errors. Electronically signed by: Darrell Bland M.D. 03/05/2020 7:39 AM
--- NOTE | 2020-03-05 08:19 | Electrocardiogram Report ---
Test Reason : Blood Pressure : / mmHG Vent. Rate : 066 BPM Atrial Rate : 125 BPM P-R Int : 000 ms QRS Dur : 180 ms QT Int : 498 ms P-R-T Axes : 000 255 080 degrees QTc Int : 522 ms Ventricular-paced rhythm Abnormal ECG When compared with ECG of 04-MAR-2020 14:48, Vent. rate has increased BY 4 BPM Rhythm now completely electronically paced Confirmed by Heriberto Grijalva ([id number]) on 03/05/2020 8:18:42 AM Referred By: REFERRED SELF Confirmed By:Heriberto Grijalva
--- NOTE | 2020-03-05 08:45 | Electrocardiogram Report ---
Test Reason : Blood Pressure : / mmHG Vent. Rate : 054 BPM Atrial Rate : 055 BPM P-R Int : 000 ms QRS Dur : 084 ms QT Int : 484 ms P-R-T Axes : 000 105 079 degrees QTc Int : 458 ms Atrial fibrillation with slow ventricular response Rightward axis Low voltage QRS Nonspecific T wave abnormality Abnormal ECG When compared with ECG of 04-MAY-2018 18:08, No significant change Confirmed by Murphy Pennington ([id number]) on 03/05/2020 8:45:17 AM Referred By: REFERRED SELF Confirmed By:Murphy Pennington
--- NOTE | 2020-03-05 08:51 | Electrocardiogram Report ---
Test Reason : Blood Pressure : / mmHG Vent. Rate : 062 BPM Atrial Rate : 062 BPM P-R Int : 170 ms QRS Dur : 088 ms QT Int : 432 ms P-R-T Axes : 000 086 048 degrees QTc Int : 438 ms ventricular-paced complexes Underlying rhythm is atrial fibrillation Low voltage QRS Abnormal ECG When compared with ECG of 04-MAR-2020 07:24, Electronic ventricular pacemaker now present Confirmed by Heriberto Grijalva ([id number]) on 03/05/2020 8:50:38 AM Referred By: REFERRED SELF Confirmed By:Heriberto Grijalva
[2020-03-05] MEDS: DICLOFENAC SOD 1% GEL 100 GM TUBE EXT SCH ×2 (08:52→20:52)
[2020-03-05] MEDS: FLUTICASONE/VILANTEROL 200/25MCG 14 PUFFS/INHALER INH SCH (08:52)
[2020-03-05] MEDS: ROSUVASTATIN CALCIUM 20 MG TAB PO SCH (08:53)
[2020-03-05] MEDS: ASPIRIN 81 MG ECTAB PO SCH (08:54)
[2020-03-05] MEDS: PANTOprazole 40 MG TAB PO SCH (08:54)
[2020-03-05] MEDS: FERROUS SULFATE 325 MG TAB PO SCH (08:54)
[2020-03-05] MEDS: ARIPiprazole 5 MG TAB PO SCH (08:55)
[2020-03-05] MEDS: ISOSORBIDE MONO EXTENDED REL 30 MG TABCR PO SCH (08:55)
[2020-03-05] MEDS: ESCITALOPRAM OXALATE 10 MG TAB PO SCH (08:55)
[2020-03-05] MEDS: lamoTRIgine 100 MG TAB PO SCH ×2 (08:56→20:59)
[2020-03-05] MEDS: CeleBREX 200 MG CAP PO SCH ×2 (08:56→20:59)
[2020-03-05] MEDS: GABAPENTIN 600 MG TAB PO SCH ×3 (08:56→21:00)
[2020-03-05] MEDS: TOPIRAMATE 25 MG TAB PO SCH ×2 (08:56→21:00)
--- NOTE | 2020-03-05 09:10 | Electrocardiogram Report ---
Test Reason : Blood Pressure : / mmHG Vent. Rate : 055 BPM Atrial Rate : 326 BPM P-R Int : 000 ms QRS Dur : 088 ms QT Int : 414 ms P-R-T Axes : 000 095 102 degrees QTc Int : 396 ms Atrial fibrillation with slow ventricular response Rightward axis Low voltage QRS Cannot rule out Anterior infarct , age undetermined Abnormal ECG When compared with ECG of 03-MAR-2020 15:55, (unconfirmed) Minimal criteria for Anterior infarct are now Present Nonspecific T wave abnormality, worse in Anterior leads Confirmed by Murphy Pennington ([id number]) on 03/05/2020 9:09:36 AM Referred By: REFERRED SELF Confirmed By:Murphy Pennington
--- NOTE | 2020-03-05 09:18 | Electrocardiogram Report ---
Test Reason : Blood Pressure : / mmHG Vent. Rate : 056 BPM Atrial Rate : 357 BPM P-R Int : 000 ms QRS Dur : 084 ms QT Int : 478 ms P-R-T Axes : 000 088 079 degrees QTc Int : 461 ms Atrial fibrillation with slow ventricular response Low voltage QRS Nonspecific ST abnormality Abnormal ECG When compared with ECG of 04-MAR-2020 03:13, (unconfirmed) Nonspecific T wave abnormality, improved in Anterolateral leads QT has lengthened Confirmed by Murphy Pennington ([id number]) on 03/05/2020 9:17:33 AM Referred By: REFERRED SELF Confirmed By:Murphy Pennington
[2020-03-05] MEDS ORDERED: TRAMADOL HCL 50 MG TABLET PO ONE (10:02)
--- NOTE | 2020-03-05 10:05 | Cardiology Progress Note ---
Date of Service March 05, 2020 Assessment & Plan (1) Status post placement of cardiac pacemaker: He is doing well postop day #1 following pacemaker implantation. The pacer is working well, the chest x-ray looks good and his site looks good. He is stable for discharge from my standpoint. I will put postop orders in his discharge paperwork. Admission and Anticipated Discharge Date Admission Date: March 04, 2020 Subjective He is feeling well today, no further presyncope, no significant incisional discomfort. Physical Exam Physical Exam: The incision is clean and dry, there was minimal blood on the dressing and none evident when the dressing was changed. No significant ecchymosis. No swelling. Results & Data ([facility]) Vital Signs (Past 12 Hours) Vital Signs Temp Pulse Pulse Resp BP Pulse Ox 03/05/20 03:40 36.5 C 60 18 102/68 94 03/05/20 03:13 63 20 96 03/05/20 00:31 65 03/04/20 23:24 61 20 95 03/04/20 23:19 36.6 C 64 18 91/54 L 91 Diagnostic Findings Postop ECG: Appropriate right ventricular pacing Chest x-ray: Good lead position, no pneumothorax Pacemaker evaluation: Excellent pacing and sensing characteristics Telemetry: PG Care Time/CCT Total # of Minutes Spent Total Time Spent with Patient: Total time spent is greater than 50% in coordination of care (as documented) at patient's floor/unit and/or counseling patient: Coding Level of Care Code 75268 Post Operative Follow-Up Diagnoses Status post placement of cardiac pacemaker Z95.0 CPT Codes Pacemaker Single Lead Programming - 11915 ([id number])
[2020-03-05] MEDS ORDERED: APIXABAN 5 MG TABLET PO STA (11:35)
--- NOTE | 2020-03-05 11:35 | Cardiology Progress Note ---
Date of Service March 05, 2020 Assessment & Plan (1) Syncope: (2) Status post placement of cardiac pacemaker: (3) SSS (sick sinus syndrome): Resume Eliquis today. Continue to hold metoprolol and diuretic therapy given her relative low blood pressure. Remain in the hospital, under telemetry. Subjective Chief complaint: Follow-up syncope Subjective: Since the patient had initially been assessed by the undersigned yesterday, he had a recurrent episode of prolonged asystole. He subsequently underwent implantation of a single-chamber [employer] pacemaker performed by Dr. Slater of [facility]. He tolerated the procedure well. Telemetry today reveals ongoing atrial fibrillation with demand ventricular pacing. Pacemaker interrogation reveals appropriate function, VVIR mode, the patient is ventricular paced 89.2% the time of overnight. Review of Systems Review of Systems: All systems reviewed & are unremarkable except as noted in HPI & below Physical Exam Physical Exam: Temp Pulse Resp BP Pulse Ox 36.5 C 60 18 102/68 94 03/05/20 03:40 03/05/20 03:40 03/05/20 03:40 03/05/20 03:40 03/05/20 03:40 Constitutional: WD/WN, vitals as above Respiratory: normal respiratory effort, lungs clear to auscultation Cardiovascular: RRR, no murmur, no edema Chest (Breasts): Additional Comments: Left infraclavicular pacemaker pocket clean dry and intact, incision without erythema. Neurologic: PERRL, EOMI, accommodation nl, no face palsy, no dysarthria Results & Data Vital Signs (Past 12 Hours) Vital Signs Temp Pulse Pulse Resp BP Pulse Ox 03/05/20 03:40 36.5 C 60 18 102/68 94 03/05/20 03:13 63 20 96 03/05/20 00:31 65 Laboratory Results CBC 03/05/20 Range/Units 07:00 WBC 9.16 (4.8-10.8) K/uL RBC 4.95 (4.7-6.1) M/uL Hgb 14.0 (14.0-18.0) g/dL Hct 43.2 (42-52) % Plt Count 178 (130-400) K/uL Comprehensive Metabolic Panel 03/05/20 Range/Units 07:00 Sodium 142 (136-145) mmol/L Potassium 4.4 (3.5-5.1) mmol/L Chloride 115 H (98-107) mmol/L Carbon Dioxide 20 L (21-32) mmol/L BUN 16 (7-18) mg/dl Creatinine 1.73 H (0.6-1.4) mg/dl Glucose 84 (70-99) mg/dl Calcium 8.9 (8.5-10.1) mg/dl Intake and Output 03/04/20 03/05/20 03/05/20 22:59 06:59 14:59 Intake Total 462 / 1802 0 / 1802 Output Total 550 / 1400 450 / 1400 Balance -88 / 402 -450 / 402 Intake: Oral 462 / 802 0 / 802 Output: Urine 550 / 1400 450 / 1400 Other: Weight 140.4 kg Diagnostic Findings EKG this morning 03/05/2020 reveals ventricular paced rhythm at 66 bpm with appropriate ventricular capture Chest x-ray performed this morning, per radiology report, no postprocedural pneumothorax. The ventricular lead position is appropriate (1) Syncope Syncope type: unspecified Qualified Code(s): R55 - Syncope and collapse
--- NOTE | 2020-03-05 11:40 | Communication Note ---
Date of Service: March 05, 2020 I called his sister, Alejandrina and updated her. Pt to remain in the hospital for further medication adjustment.
--- NOTE | 2020-03-05 16:49 | Hospitalist Progress Note ---
Date of Service March 05, 2020 Assessment & Plan (1) SSS (sick sinus syndrome): Sick sinus syndrome Multiple syncopal episodes Afib with slow ventricular response S/P Single-chamber pacemaker implantation POD #1 CT head:No acute intracranial abnormality. EEG:This is a normal EEG during wakefulness without evidence for focal or generalized encephalopathy without evidence for potentially epileptogenic activity Beta-blockers currently held due to relative low BP Monitor on telemetry Appreciate cardiology input Resume Eliquis today H/O CAD S/P CABG Lopressor held due to above Continue statin,aspirin, Isosorbide Hyperlipidemia On Rosuvastatin Obstructive sleep apnea CPAP at bedtime Chronic atrial fibrillation Lopressor held Resume Eliquis as able CKD III Creatinine at baseline Monitor renal function Avoid Nephrotoxic agents as able Morbid obesity BMI:49.9 Chronic back pain Chronic Left shoulder pain Shoulder X ray: No acute fracture or dislocation. Pain control Follow up as outpatient Depression Continue home medications HTN On Imdur Lopressor, diuretics held for now DVT Px: Eliquis Code Status Full code Disposition Expect to discharge Home Admission and Anticipated Discharge Date Admission Date: March 04, 2020 Subjective Patient is seen and examined at bedside No new complaints today Had pacemaker implantation yesterday Reports chronic left shoulder pain Denies chest pain, SOB, dizziness, nausea, abdominal pain Review of Systems Review of Systems: All systems reviewed & are unremarkable except as noted in HPI & below Physical Exam Physical Exam: Physical Exam: Vitals signs as noted above General Appearance:Morbidly Obese, no apparent distress Head: normocephalic, Atraumatic Eyes: normal inspection, EOMI Neck: supple, Trachea midline Respiratory/Chest: Normal breath sounds, CTA, No accessory muscle use Cardiovascular: Irregularly irregular, No murmur Abdomen/GI:Soft, Non tender, Bowel sounds present Extremities/Musculoskelatal:normal inspection, Trace edema Neurologic/Psych:AAOX3, grossly no focal neurological deficits Skin: normal color, warm Results & Data Results & Data ([facility]) Vital Signs (Past 12 Hours) Vital Signs Temp Pulse Resp BP BP Pulse Ox 03/05/20 15:12 36.6 C 70 18 131/78 97 03/05/20 11:53 36.8 C 63 18 121/66 97 Laboratory Results Short CBC 03/05/20 Range/Units 07:00 WBC 9.16 (4.8-10.8) K/uL Hgb 14.0 (14.0-18.0) g/dL Hct 43.2 (42-52) % Plt Count 178 (130-400) K/uL BMP 03/05/20 07:00 Sodium 142 Potassium 4.4 Chloride 115 H Carbon Dioxide 20 L BUN 16 Creatinine 1.73 H Glucose 84 Calcium 8.9 Urine 03/04/20 Range/Units 22:20 Urine Color Yellow Urine Appearance Clear (Clear) Urine pH 7.0 (4.5-7.5) Ur Specific [place] 1.014 (1.000-1.030) Urine Protein 2+ H (Negative) Urine Glucose (UA) Negative (Negative)
[2020-03-05] MEDS: QUETIAPINE FUMARATE 200 MG TAB PO SCH (20:59)
[2020-03-05] MEDS: TAMSULOSIN HCL 0.4 MG CAP PO SCH (21:00)
[2020-03-05] MEDS: SUCRALFATE 1 GM TAB PO SCH (21:00)
[2020-03-05] MEDS ORDERED: APIXABAN 5 MG TABLET PO ONE (23:00)
[2020-03-06] MEDS: OXYCODONE/ACETAMINOPHEN 5mg/325mg TAB PO PRN ×2 (05:41→12:19)
[2020-03-06 06:00] LABS: Hematocrit (blood only) 43.9 % (42-52); Hemoglobin 14.7 g/dL (14.0-18.0); Mean Corpuscular Hemoglobin 29.9 pg (25-34); Mean Corpuscular Hgb Conc 33.5 g/dL (32-36); Mean Corpuscular Volume 89.4 fL (80-100); Mean Platelet Volume 10.3 fL (7.4-10.4); Platelet Count 171 K/uL (130-400); RDW Coefficient of Variation 17.3 % (11.5-14.5); RDW Standard Deviation 56.1 fL (36.4-46.3); Red Blood Count 4.91 M/uL (4.7-6.1); White Blood Count 8.85 K/uL (4.8-10.8)
[2020-03-06 06:48] LABS: BUN Creatinine Ratio 7.2 (10-20); Calcium 9.5 mg/dl (8.5-10.1); Creatinine Clr Calc Pharmacy 58.6 ml/min; Est GFR (African American) 45.8; Est GFR (Non-African American) 39.5; Potassium 3.7 mmol/L (3.5-5.1)
[2020-03-06] MEDS: lamoTRIgine 100 MG TAB PO SCH (08:52)
[2020-03-06] MEDS: ISOSORBIDE MONO EXTENDED REL 30 MG TABCR PO SCH (08:52)
[2020-03-06] MEDS: TOPIRAMATE 25 MG TAB PO SCH (08:52)
[2020-03-06] MEDS: CeleBREX 200 MG CAP PO SCH (08:52)
[2020-03-06] MEDS: PANTOprazole 40 MG TAB PO SCH (08:52)
[2020-03-06] MEDS: GABAPENTIN 600 MG TAB PO SCH (08:53)
[2020-03-06] MEDS: FERROUS SULFATE 325 MG TAB PO SCH (08:53)
[2020-03-06] MEDS: ESCITALOPRAM OXALATE 10 MG TAB PO SCH (08:53)
[2020-03-06] MEDS: ROSUVASTATIN CALCIUM 20 MG TAB PO SCH (08:53)
[2020-03-06] MEDS: ASPIRIN 81 MG ECTAB PO SCH (08:54)
[2020-03-06] MEDS: ARIPiprazole 5 MG TAB PO SCH (08:54)
[2020-03-06] MEDS: DICLOFENAC SOD 1% GEL 100 GM TUBE EXT SCH (08:55)
[2020-03-06] MEDS: FLUTICASONE/VILANTEROL 200/25MCG 14 PUFFS/INHALER INH SCH (08:55)
[2020-03-06] MEDS ORDERED: APIXABAN 5 MG TABLET PO SCH (09:00)
[2020-03-06] MEDS ORDERED: METOPROLOL SUCC 25MG EXT REL TAB PO SCH (11:45)
--- NOTE | 2020-03-06 12:03 | Cardiology Progress Note ---
Date of Service March 06, 2020 Assessment & Plan (1) Syncope: (2) SSS (sick sinus syndrome): (3) Status post placement of cardiac pacemaker: s/p single chamber pacemaker. He is back on anticoagulation with Eliquis. Resume beta gomez, start metoprolol succinate 25 mg , instead of [employer] tartrate 50 mg BID. Has wound check, device interrogation planned 03/10/20 at [facility]. I have requested a clinic visit within 2 weeks. (4) Right-sided congestive heart failure: Diuretics held due to relative low BP. Sister expressed concerns that pt has not been taking medications as directed. BP improved. Creatinine of 1.8 , stable compared to recent baseline as outpatient. Resume torsemide 20 mg BID as outpatient tomorrow. Resume spironolactone 25 mg as outpatient tomorrow. metolazone has been recommended previously for significant weight gain 1 x per week, and not more than 3 x per week. I believe he should hold off on metolazone treatment until after seen in follow up by cardiology and or [facility] and we establish where his BP status is. Stable for discharge today, as noted has device visit planned, I requested cardio clinic visit. Would recommend [facility] follow up. Refer to wound instructions as per Dr Pennington on his DC instructions. Pt may remove dressing at home tomorrow. He need to keep would dry. Subjective Patient seen in follow up . Feels well and he is eager for discharge. Telemetry reveals AF with ventricular pacing in the 60s. Physical Exam Physical Exam: Temp Pulse Resp BP Pulse Ox 36.3 C L 68 20 118/67 98 03/06/20 11:48 03/06/20 11:48 03/06/20 11:48 03/06/20 11:48 03/06/20 11:48 Constitutional: WD/WN, vitals as above Respiratory: normal respiratory effort, lungs clear to auscultation Cardiovascular: RRR, no murmur, no edema Heart Sounds: no murmur Extremities: no edema Chest (Breasts): Additional Comments: left infraclavicular pacemaker site , C-D-Intact Neurologic: PERRL, EOMI, accommodation nl, no face palsy, no dysarthria Results & Data Vital Signs (Past 12 Hours) Vital Signs Temp Pulse Pulse Resp BP Pulse Ox 03/06/20 11:48 36.3 C L 68 20 118/67 98 03/06/20 08:00 36.6 C 65 20 139/61 96 03/06/20 07:00 71 03/06/20 04:11 36.6 C 66 18 120/76 97 (1) Syncope Syncope type: unspecified Qualified Code(s): R55 - Syncope and collapse
--- NOTE | 2020-03-06 12:07 | Communication Note ---
Date of Service: March 06, 2020 I spoke to pt's sister Alejandrina and updated her on today's findings and plans.
--- NOTE | 2020-03-06 12:35 | Hospitalist Progress Note ---
Date of Service March 06, 2020 Assessment & Plan (1) SSS (sick sinus syndrome): Sick sinus syndrome Multiple syncopal episodes Afib with slow ventricular response S/P Single-chamber pacemaker implantation POD #2 CT head:No acute intracranial abnormality. EEG:This is a normal EEG during wakefulness without evidence for focal or generalized encephalopathy without evidence for potentially epileptogenic activity Monitor on telemetry Appreciate cardiology input Restart metoprolol 25 mg twice daily Continue Eliquis Pacemaker interrogation on 03/10/20 at [facility] Needs follow-up with cardiology in 2 weeks H/O CAD S/P CABG Lopressor held due to above Continue statin,aspirin, Isosorbide Hyperlipidemia On Rosuvastatin Obstructive sleep apnea CPAP at bedtime Chronic atrial fibrillation Lopressor held Resume Eliquis as able CKD III Creatinine at baseline Monitor renal function Avoid Nephrotoxic agents as able Morbid obesity BMI:49.9 Chronic back pain Chronic Left shoulder pain Shoulder X ray: No acute fracture or dislocation. Pain control Follow up as outpatient Depression Continue home medications HTN On Imdur Lopressor, diuretics held for now DVT Px: Eliquis Code Status Full code Disposition Expect to discharge Home Admission and Anticipated Discharge Date Admission Date: March 04, 2020 Subjective Patient is seen and examined at bedside Feels well today Mild chronic left shoulder pain Denies chest pain, SOB, dizziness, nausea, abdominal pain Discussed with Cardiology today Review of Systems Review of Systems: All systems reviewed & are unremarkable except as noted in HPI & below Physical Exam Physical Exam: Physical Exam: Vitals signs as noted above General Appearance:Morbidly Obese, no apparent distress Head: normocephalic, Atraumatic Eyes: normal inspection, EOMI Neck: supple, Trachea midline Respiratory/Chest: Normal breath sounds, CTA, No accessory muscle use Cardiovascular: Irregularly irregular, No murmur, +Pacer Abdomen/GI:Soft, Non tender, Bowel sounds present Extremities/Musculoskelatal:normal inspection, Trace edema Neurologic/Psych:AAOX3, grossly no focal neurological deficits Skin: normal color, warm Results & Data Results & Data ([facility]) Vital Signs (Past 12 Hours) Vital Signs Temp Pulse Pulse Resp BP Pulse Ox 03/06/20 11:48 36.3 C L 68 20 118/67 98 03/06/20 08:00 36.6 C 65 20 139/61 96 03/06/20 07:00 71 03/06/20 04:11 36.6 C 66 18 120/76 97 Laboratory Results Short CBC 03/06/20 Range/Units 05:39 WBC 8.85 (4.8-10.8) K/uL Hgb 14.7 (14.0-18.0) g/dL Hct 43.9 (42-52) % Plt Count 171 (130-400) K/uL BMP 03/06/20 05:39 Sodium 141 Potassium 3.7 D Chloride 111 H Carbon Dioxide 25 BUN 13 Creatinine 1.84 H Glucose 82 Calcium 9.5
--- NOTE | 2020-03-06 12:45 | Discharge Summary ---
Date of Service March 06, 2020 Admission HPI Per Admitting Provider CHIEF COMPLAINT: Syncope. HISTORY OF PRESENT ILLNESS: A 59-year-old male with past medical history significant for hyperlipidemia, obstructive sleep apnea, chronic atrial fibrillation, hypertension, history of [place], history of cor pulmonale, history of chronic kidney disease stage III, history of CAD status post CABG, morbid obesity, GERD, chronic low back pain, depression, history of alcoholism, history of polypharmacy, who comes with syncope. The patient was at his sister's place today. They were getting grocery packs from the car to the house when he felt slightly lightheaded. When he went back to pick again, it got worse and he sat on a chair and kept his head backwards and as per the sister, he was unresponsive for about 5 minutes. When they tried to make his head straight, he seemed to be turning blue and they tried to wake him up and after 5 minutes, he woke up and seemed confused for a couple of minutes. There was no seizure-like activity, but he had bladder incontinence during the episode. He has not had these kind of episodes before. Denies any chest pain. No shortness of breath. Still is somewhat lightheaded. No headache, no blurred visions, no earache, no runny nose, no sore throat, no cough. He gets short of breath on exertion. He has chronic left shoulder pain which he says is slightly worse because of all this happening. He is slightly nauseous. No abdominal pain, no diarrhea or constipation. He has on and off blood in the stools, which is chronic because of tear in his anal region. Normal bladder movements. No rash seen. Currently resting comfortably and hemodynamically stable. Admission Exam Per Admitting Provider PHYSICAL EXAMINATION: GENERAL: The patient is morbidly obese, not in acute distress. VITAL SIGNS: Temperature 36.7, pulse 61, respiratory rate 17, blood pressure 94/59, oxygen 98% on room air. HEENT: No pallor, no icterus. Pupils equal, round, reactive to light. NECK: No JVD, no neck masses. CARDIOVASCULAR: S1, S2 heard. Regular rate and rhythm, no murmur, no gallop. RESPIRATORY SYSTEM: Normal AP diameter. No accessory muscle use. No wheezing, no crackles. ABDOMEN: Soft, bowel sounds present, nontender. No distention. CENTRAL NERVOUS SYSTEM: Cranial nerves II-XII grossly intact. Nonfocal. EXTREMITIES: Bilateral lower extremity trace edema present. No erythema seen. Principal Diagnosis Sick sinus syndrome Discharge Data Allergies Allergy/AdvReac Type Severity Reaction Status Date / Time morphine AdvReac Mild nausea and Verified 01/31/19 00:57 vomiting Consultations 03/03/20 19:23 ED Decision to Admit Stat 03/03/20 21:19 Consult Case Management - Discharge Planning Routine 03/04/20 08:00 Consult Cardiology Routine Procedures Performed Operation Date: 03/04/20 12:35 Actual Procedures p Pacer with Ventricular Lead - Murphy Pennington MD s Venogram, Unilateral - Murphy Pennington MD Operation Date: 03/05/20 08:00 <No data on this case meets the specified criteria> CXR: 1. Status post placement of a single lead left subclavian pacer. No postprocedural pneumothorax identified. 2. Cardiomegaly with prior median sternotomy and CABG. Ordered Studies 03/03/20 17:01 CT head/brain wo con Stat 03/04/20 12:34 CL Cath Imgs for PACS use only Stat 03/04/20 12:41 CL Cath Imgs for PACS use only Routine Hospital Course (1) SSS (sick sinus syndrome): Sick sinus syndrome Multiple syncopal episodes Afib with slow ventricular response S/P Single-chamber pacemaker implantation POD #2 CT head:No acute intracranial abnormality. EEG:This is a normal EEG during wakefulness without evidence for focal or generalized encephalopathy without evidence for potentially epileptogenic activity Monitor on telemetry Appreciate cardiology input Restarted on metoprolol succinate 25 mg daily Continue Eliquis Pacemaker interrogation on 03/10/20 at [facility] Needs follow-up with cardiology in 2 weeks H/O CAD S/P CABG Lopressor held due to above Continue statin,aspirin, Isosorbide Hyperlipidemia On Rosuvastatin Obstructive sleep apnea CPAP at bedtime Chronic atrial fibrillation Lopressor held Resume Eliquis as able CKD III Creatinine at baseline Monitor renal function Avoid Nephrotoxic agents as able Morbid obesity BMI:49.9 Chronic back pain Chronic Left shoulder pain Shoulder X ray: No acute fracture or dislocation. Pain control Follow up as outpatient Depression Continue home medications HTN On Imdur Restarted Lopressor Resume diuretics upon discharge DVT Px: Eliquis Code Status Full code Disposition Expect to discharge Home Total Time Total Time Spent Total Time Spent (In Minutes): 40 minutes Total Time Includes: Examination of the Patient, Discharge Planning, Medication Reconciliation, Communication With Other Providers and Other Discharge Plan Discharge Items Patient Disposition: Home - Self-Care Reason For Visit: SYNCOPE Discharge Diagnosis: Sick sinus syndrome Activity: Per Instructions section Exercise/Sports: Gradually increase as tolerated Non-emergency contact: Primary Care Provider and [employer] Field Service Technician Call non-emergency contact if: you have any medication questions, your symptoms worsen, your pain is not controlled, your pain is worsening, your pain is unusual for you, your pain is concerning for you and you have a fever Follow-up/Referrals: Jp Morillo MD [Primary Care Provider] - 03/12/20 1:20 pm (03/12/2020 1:20 PM Provider Jp Morillo MD [facility] ) Diet: Heart Healthy Addtl Attending Provider Instructions: Follow-up with your primary care physician Dr. Jp Benito on March 12, 2020 at 1:20 PM as scheduled Follow-up with your fluid designer Dr. Oliver in 2 weeks as advised Get Pacemaker interrogation on 03/10/20 at [facility] as scheduled Seek immediate medical attention if your symptoms reoccur or worsen ACTIVITY RECOMMENDATIONS: * Do not raise affected arm over head for 2 weeks. SPECIAL CARE INSTRUCTIONS: * If bleeding occurs, apply direct pressure to area for 5 minutes. * Call your doctor if you have severe pain, fever, drainage or bleeding at site. * Keep dressing on and dry for 24 hours then remove. * Keep any scheduled doctor's appointment. * Implant Card - hand held device with website information given. SKIN IRRITATION: * You may experience some redness and/or swelling in the area where radiation was administered. If any skin irritation occurs, please contact your family physician. FOLLOW UP VISIT: Keep any scheduled doctor appointments. Pending Studies at Discharge: No Stand-Alone Forms: My [employer], Smoking Cessation Medications and DC Order Prescriptions: New metoprolol succinate 25 mg Tablet Extended Release 24 Hr 25 mg PO QAM Qty: 30 RF: 1 Continued gabapentin 600 mg Tablet 600 mg PO TID RF: 0 lamotrigine [Lamictal] 200 mg Tablet 200 mg PO BID RF: 0 sucralfate [Carafate] 1 gram Tablet 1 g PO HS RF: 0 isosorbide mononitrate 30 mg Tablet Extended Release 24 Hr 30 mg PO QAM RF: 0 topiramate [Topamax] 25 mg Tablet 25 mg PO BID RF: 0 hydroxyzine HCl 50 mg Tablet 50 mg PO BID PRN (Reason: Itching) RF: 0 omeprazole 40 mg Capsule,Delayed Release(Dr/Ec) 40 mg PO DAILY RF: 0 spironolactone 25 mg Tablet 25 mg PO DAILY RF: 0 ferrous sulfate 325 mg (65 mg iron) Tablet 325 mg PO DAILY RF: 0 nitroglycerin [Nitrostat] 0.4 mg Tablet, Sublingual 0.4 mg Sublingual DIRECTED PRN (Reason: Chest Pain) RF: 0 zolpidem [Ambien] 5 mg Tablet 5 mg PO HS PRN (Reason: Sleep) RF: 0 albuterol sulfate [ProAir HFA] 90 mcg/actuation Hfa Aerosol Inhaler 2 puff INHALATION QID PRN (Reason: Shortness Of Breath Or Wheezing) RF: 0 celecoxib [Celebrex] 200 mg capsule 200 mg PO BID RF: 0 fluticasone propion-salmeterol [Advair Diskus] 250-50 mcg/dose Blister With Device 1 inh INHALATION BID RF: 0 torsemide 20 mg tablet 20 mg PO BID RF: 0 albuterol sulfate 2.5 mg /3 mL (0.083 %) Solution For Nebulization 2.5 mg INHALATION Q4 PRN (Reason: Shortness Of Breath Or Wheezing) RF: 0 aspirin [Aspir-81] 81 mg Tablet,Delayed Release (Dr/Ec) 81 mg PO DAILY RF: 0 oxycodone-acetaminophen [Percocet] 5-325 mg tablet 1 tab PO Q6 PRN (Reason: Pain) RF: 0 potassium chloride [Klor-Con M20] 20 mEq tablet,ER particles/crystals 40 meq PO BID RF: 0 tamsulosin 0.4 mg Capsule 0.4 mg PO HS RF: 0 escitalopram oxalate [Lexapro] 10 mg tablet 10 mg PO DAILY RF: 0 aripiprazole [Abilify] 5 mg tablet 5 mg PO DAILY RF: 0 rosuvastatin [Crestor] 40 mg tablet 40 mg PO DAILY RF: 0 diclofenac sodium [Voltaren] 1 % gel 2 g TOPICAL BID RF: 0 Eliquis 5 mg tablet 5 mg PO BID RF: 0 quetiapine [Seroquel] 200 mg tablet 200 mg PO HS Qty: 7 RF: 0 Discontinued metoprolol tartrate 50 mg Tablet 50 mg PO BID RF: 0 metolazone 2.5 mg tablet 2.5 mg PO UD RF: 0 Discharge Orders: Discharge Order (Routine); Ordered 03/06/20 Ordered By: Bear Smith Admission Data Admit Date/Time: 03/04/20 11:22 Attending Provider: Bear Smith Admit Provider: Long Vann Primary Care Provider: Jp Morillo Other Providers: Long Vann ; Peyman Dumont ; Milton Oliver ; Steven Ariza ; Jorge Manzanares ; Avtar Rea ; Álvaro Boggs ; Arlin Shah ; Miryam Correia ; Hector Davies Other Interventions: Discharge Summary Assessment (RN) Last Done: 03/06/20 12:52 DC Date/Time DO NOT enter until pt leaves facility: 03/06/20 13:36
== END 2020-03-06 13:36 | disposition home or self-care (01) | DRG 243 ==
LOC: 2E 15:43 → ED 15:43 → SUATTDRO 20:17 → 2E 21:35

== ENCOUNTER 2021-02-04 20:47 | Inpatient (IN) ==
--- NOTE | 2021-02-04 22:58 | Emergency Department Note ---
History of Present Illness General Chief complaint: Shortness of Breath/Dyspnea Stated complaint: SHORTNESS OF BREAHTE, CHEST TIGHTNESS Time Seen by Provider: 02/04/21 22:39 Source: patient Mode of arrival: EMS Limitations: no limitations History of Present Illness Provider complaint: Shortness of breath Maximum Pain Intensity: 10 60-year-old male presents with chief complaint of shortness of breath that is worse with exertion. He states that he has had the symptoms for the past few days or more. He is mostly wheelchair-bound. He reported a sharp pain in his chest as well. He has had increased edema in his legs. He is taking water pills but they did not seem to help him much. He reports that he gained 6 pounds since yesterday. Denies any calf pains. No fevers or cough. No other complaints at this time. Home Medications Medication Instructions Recorded Confirmed Type albuterol sulfate [ProAir HFA] 2 puff INHALATION QID PRN 05/04/18 02/05/21 History ferrous sulfate 325 mg PO DAILY 05/04/18 02/05/21 History gabapentin 600 mg PO TID 05/04/18 07/28/20 History hydroxyzine HCl 50 mg PO BID PRN 05/04/18 02/05/21 History isosorbide mononitrate 30 mg PO QAM 05/04/18 02/05/21 History lamotrigine [Lamictal] 200 mg PO BID 05/04/18 07/28/20 History nitroglycerin [Nitrostat] 0.4 mg SUBLINGUAL DIRECTED PRN 05/04/18 02/05/21 History spironolactone 25 mg PO DAILY 05/04/18 07/28/20 History sucralfate [Carafate] 1 g PO HS 05/04/18 07/28/20 History topiramate [Topamax] 25 mg PO BID 05/04/18 07/28/20 History zolpidem [Ambien] 5 mg PO HS PRN 05/04/18 07/28/20 History albuterol sulfate 2.5 mg INHALATION Q4 PRN 03/03/20 02/05/21 History aripiprazole [Abilify] 5 mg PO QAM 03/03/20 02/05/21 History celecoxib [Celebrex] 200 mg PO BID 03/03/20 02/05/21 History escitalopram oxalate [Lexapro] 10 mg PO DAILY 03/03/20 07/28/20 History fluticasone propion-salmeterol 1 inh INHALATION BID 03/03/20 02/05/21 History [Advair Diskus] oxycodone-acetaminophen [Percocet] 1 tab PO Q6 PRN 03/03/20 07/28/20 History potassium chloride [Klor-Con M20] 40 meq PO BID 03/03/20 02/05/21 History rosuvastatin [Crestor] 40 mg PO DAILY 03/03/20 02/05/21 History torsemide 20 mg PO BID 03/03/20 07/28/20 History metolazone 2.5 mg PO UD 02/05/21 02/05/21 History metoprolol succinate 50 mg PO DAILY 02/05/21 02/05/21 History quetiapine [Seroquel] 200 mg PO HS PRN 02/05/21 02/05/21 History spironolactone 50 mg PO BID 02/05/21 02/05/21 History warfarin 5 mg PO DAILY 02/05/21 02/05/21 History Allergies Allergy/AdvReac Type Severity Reaction Status Date / Time morphine AdvReac Mild nausea and Verified 02/05/21 01:33 vomiting Past Med/Surg History Medical History (Updated 02/05/21 @ 01:52 by Jalen Guerrero DO) CAD (coronary artery disease) CAD (coronary artery disease) Chronic atrial fibrillation Chronic back pain CKD (chronic kidney disease) stage 3, GFR 30-59 ml/min Cor pulmonale Depression HTN (hypertension) Hyperlipidemia Hypertension Obesities, morbid OSCAR (obstructive sleep apnea) Volume overload Surgical History S/P CABG x 4 Social History Smoking Status: Never smoker Second Hand Exposure: Yes; Hx Alcohol Use: No Hx Substance Use: No Preferred Language: South African Communication Ability: Effective Hearing Ability: Normal Tongue And Groove Machine Feeder Required: No Beliefs That Will Affect Care: None marital status: Single Current Living Situation: Alone Current Living Situation Comment: fist floor appartment Feels Safe at Home: Yes Assistive Devices: None Review of Systems A total of 10 systems reviewed and were otherwise negative Physical Exam Vital Signs Vital Signs - 24 hr 02/04/21 20:48 02/04/21 20:50 02/04/21 20:53 Temperature 36.6 C Temperature Source Temporal Artery Scan Pulse Rate 87 Pulse Rate [Apical] Pulse Rhythm [Apical] Pulse Strength [Apical] Respiratory Rate 22 Respiratory Effort / Characteristics Respiratory Depth Normal Respiratory Pattern Regular Blood Pressure 146/74 H Blood Pressure [Right Arm] Blood Pressure Mean 98 Blood Pressure Mean [Right Arm] Blood Pressure Position [Right Arm] Pulse Oximetry 95 93 Oxygen Delivery Method Room Air Room Air Room Air Sepsis Recent Fever Within 48 Hours No Sepsis New/Unexplained Change in Mental Status N/A Sepsis Action Taken by Nursing No Action Required 02/04/21 22:25 02/04/21 22:55 02/05/21 00:21 Temperature Temperature Source Pulse Rate Pulse Rate [Apical] 82 72 Pulse Rhythm [Apical] Irregular Regular Pulse Strength [Apical] Normal Respiratory Rate 22 16 Respiratory Effort / Characteristics Short of Breath Non-Labored Spontaneous Non-Labored Spontaneous Respiratory Depth Normal Normal Respiratory Pattern Regular Blood Pressure Blood Pressure [Right Arm] 122/66 119/65 Blood Pressure Mean Blood Pressure Mean [Right Arm] 84 83 Blood Pressure Position [Right Arm] Lying Lying Pulse Oximetry 95 96 96 Oxygen Delivery Method Room Air Room Air Room Air Sepsis Recent Fever Within 48 Hours Sepsis New/Unexplained Change in Mental Status Sepsis Action Taken by Nursing CONSTITUTIONAL/VITAL SIGNS: Reviewed / noted above. GENERAL: Non-toxic in appearance. INTEGUMENTARY: Warm, dry, and [place]. HEAD: Normocephalic. EYES: without scleral icterus or trauma. ENT/OROPHARYNX: clear and moist. LYMPHADENOPATHY/NECK: Is supple without lymphadenopathy or meningismus. RESPIRATORY: Lungs clear and equal. CARDIOVASCULAR: Regular rate and rhythm. GI/ABDOMEN: Soft and nontender. No organomegaly or pulsatile mass. No rebound or guarding. Normal bowel sounds. EXTREMITIES: Warm and well perfused. Pedal edema. BACK: No CVA tenderness. NEUROLOGICAL: Intact without focal deficits. PSYCHIATRIC: normal affect. MUSCULOSKELETAL: Normally developed with good muscle tone. TRIAGE NURSING DOCUMENTATION REVIEWED. Medical Decision Making Differential Diagnosis The differential was considered includes acute myocardial infarction, acute coronary syndrome, myocarditis, pericarditis, pericardial effusions /tamponad, esophageal perforation, pulmonary embolism, pneumonia, pneumothorax, cardiomyopathy, congestive heart, anemia , COPD/asthma exacerbation. Medical Records Attestation: I reviewed the patient's medical records. Home Medications Current Medication List: was personally reviewed by me Laboratory Data Attestation: I reviewed the patient's lab results. Result diagrams: 02/04/21 23:33 02/04/21 23:33 Lab Results 02/04/21 02/04/21 02/04/21 Range/Units 23:33 23:33 23:33 WBC 11.48 H (4.8-10.8) K/uL RBC 4.57 L (4.7-6.1) M/uL Hgb 12.7 L (14.0-18.0) g/dL Hct 40.0 L (42-52) % MCV 87.5 (80-100) fL MCH 27.8 (25-34) pg MCHC 31.8 L (32-36) g/dL RDW Std Deviation 55.5 H (36.4-46.3) fL RDW Coeff of Karlene 17.2 H (11.5-14.5) % Plt Count 231 (130-400) K/uL MPV 10.2 (7.4-10.4) fL Immature Gran % (Auto) 1.1 % Neut % (Auto) 63.0 % Lymph % (Auto) 23.7 % Ross % (Auto) 9.1 % Eos % (Auto) 2.5 % Baso % (Auto) 0.6 % Neut # (Auto) 7.23 H (1.4-6.5) K/uL Lymph # (Auto) 2.72 (1.2-3.4) K/uL Ross # (Auto) 1.04 H (0.11-0.59) K/uL Eos # (Auto) 0.29 (0-0.5) K/uL Baso # (Auto) 0.07 (0-0.2) K/uL Immature Gran # (Auto) 0.13 H (0.00-0.02) K/uL PT 25.2 H (9.0-12.0) Seconds INR 2.7 H (0.9-1.1) APTT 42.7 H (21.0-31.0) Seconds PTT Ratio 1.6 Sodium 136 (136-145) mmol/L Potassium 4.2 (3.5-5.1) mmol/L Chloride 103 (98-107) mmol/L Carbon Dioxide 31 (21-32) mmol/L Anion Gap 2.0 L (3-11) BUN 13 (7-18) mg/dl Creatinine 1.37 (0.6-1.4) mg/dl Est Cr Clr Drug Dosing 86.0 ml/min Est GFR ( Amer) 65.0 ml/min Est GFR (Non-Af Amer) 56.1 ml/min BUN/Creatinine Ratio 9.8 L (10-20) Glucose 94 (70-99) mg/dl Calcium 8.3 L (8.5-10.1) mg/dl Magnesium 2.3 (1.8-2.4) mg/dl Total Bilirubin 0.3 (0.2-1) mg/dl AST 70 H (15-37) U/L ALT 93 H (12-78) U/L Alkaline Phosphatase 205 H (45-117) U/L Troponin I 0.115 H* (0-0.045) ng/ml Total Protein 6.7 (6.4-8.2) gm/dl Albumin 3.0 L (3.4-5.0) gm/dl Globulin 3.7 (2.5-4.0) gm/dl Albumin/Globulin Ratio 0.8 L (0.9-2) COVID-19 Eval Order 02/05/21 Range/Units 01:39 WBC (4.8-10.8) K/uL RBC (4.7-6.1) M/uL Hgb (14.0-18.0) g/dL Hct (42-52) % MCV (80-100) fL MCH (25-34) pg MCHC (32-36) g/dL RDW Std Deviation (36.4-46.3) fL RDW Coeff of Karlene (11.5-14.5) % Plt Count (130-400) K/uL MPV (7.4-10.4) fL Immature Gran % (Auto) % Neut % (Auto) % Lymph % (Auto) % Ross % (Auto) % Eos % (Auto) % Baso % (Auto) % Neut # (Auto) (1.4-6.5) K/uL Lymph # (Auto) (1.2-3.4) K/uL Ross # (Auto) (0.11-0.59) K/uL Eos # (Auto) (0-0.5) K/uL Baso # (Auto) (0-0.2) K/uL Immature Gran # (Auto) (0.00-0.02) K/uL PT (9.0-12.0) Seconds INR (0.9-1.1) APTT (21.0-31.0) Seconds PTT Ratio Sodium (136-145) mmol/L Potassium (3.5-5.1) mmol/L Chloride (98-107) mmol/L Carbon Dioxide (21-32) mmol/L Anion Gap (3-11) BUN (7-18) mg/dl Creatinine (0.6-1.4) mg/dl Est Cr Clr Drug Dosing ml/min Est GFR ( Amer) ml/min Est GFR (Non-Af Amer) ml/min BUN/Creatinine Ratio (10-20) Glucose (70-99) mg/dl Calcium (8.5-10.1) mg/dl Magnesium (1.8-2.4) mg/dl Total Bilirubin (0.2-1) mg/dl AST (15-37) U/L ALT (12-78) U/L Alkaline Phosphatase (45-117) U/L Troponin I (0-0.045) ng/ml Total Protein (6.4-8.2) gm/dl Albumin (3.4-5.0) gm/dl Globulin (2.5-4.0) gm/dl Albumin/Globulin Ratio (0.9-2) COVID-19 Eval Order Covid19 at [facility] Imaging Data Attestation: I personally reviewed and interpreted this imaging study as follows: My Impression: Chest x-ray: Cardiomegaly. No acute process. ECG Data Attestation: I personally reviewed and interpreted this ECG as follows: Indication: + SOB/dyspnea Rate (beats per minute): 70 Rhythm: + atrial fibrillation ECG ST segments: + T-wave inversions (Inferior) ECG Findings: + Other (Intermittent paced rhythm); no PVCs MDM Narrative Patient presents with some chest discomfort and exertional dyspnea with increased weight gain and pedal edema. Vital signs are stable. CBC and chemistry quality control technician ry panel was unremarkable. Patient's troponin is 0.115. Chest x-ray reveals cardiomegaly. Twelve-lead EKG shows intermittent paced rhythm otherwise A. fib with some T wave inversions inferior lateral. Troponin is slightly elevated. This has been elevated in the past. CBC chemistry panel was unremarkable. INR is 2.7. He is on Coumadin for his A. fib. Because of the patient symptoms and elevated troponin, he will be seen by the hospitalist for further patient evaluation and care. Impression & Plan Elevated troponin, Exertional dyspnea Discharge Plan Visit Data Chief Complaint: Shortness of Breath/Dyspnea Stated Complaint: SHORTNESS OF BREAHTE, CHEST TIGHTNESS ED Provider: Jalen Guerrero Discharge Problem: Elevated troponin, Exertional dyspnea Forms Stand Alone Forms: [facility] [place] Prescriptions Prescriptions: No Action gabapentin 600 mg Tablet 600 mg PO BID RF: 0 lamotrigine [Lamictal] 200 mg Tablet 200 mg PO BID RF: 0 sucralfate [Carafate] 1 gram Tablet 1 g PO HS RF: 0 isosorbide mononitrate 30 mg Tablet Extended Release 24 Hr 30 mg PO QAM RF: 0 topiramate [Topamax] 25 mg Tablet 25 mg PO BID RF: 0 hydroxyzine HCl 50 mg Tablet 50 mg PO BID PRN (Reason: Itching) RF: 0 spironolactone 25 mg Tablet 25 mg PO DAILY RF: 0 ferrous sulfate 325 mg (65 mg iron) Tablet 325 mg PO DAILY RF: 0 nitroglycerin [Nitrostat] 0.4 mg Tablet, Sublingual 0.4 mg Sublingual DIRECTED PRN (Reason: Chest Pain) RF: 0 zolpidem [Ambien] 5 mg Tablet 5 mg PO HS PRN (Reason: Sleep) RF: 0 albuterol sulfate [ProAir HFA] 90 mcg/actuation Hfa Aerosol Inhaler 2 puff INHALATION QID PRN (Reason: Shortness Of Breath Or Wheezing) RF: 0 celecoxib [Celebrex] 200 mg capsule 200 mg PO BID RF: 0 fluticasone propion-salmeterol [Advair Diskus] 250-50 mcg/dose Blister With Device 1 inh INHALATION BID RF: 0 torsemide 20 mg tablet 20 mg PO BID RF: 0 albuterol sulfate 2.5 mg /3 mL (0.083 %) Solution For Nebulization 2.5 mg INHALATION Q4 PRN (Reason: Shortness Of Breath Or Wheezing) RF: 0 oxycodone-acetaminophen [Percocet] 5-325 mg tablet 1 tab PO Q6 PRN (Reason: Pain) RF: 0 potassium chloride [Klor-Con M20] 20 mEq tablet,ER particles/crystals 40 meq PO BID RF: 0 escitalopram oxalate [Lexapro] 10 mg tablet 10 mg PO DAILY RF: 0 aripiprazole [Abilify] 5 mg tablet 5 mg PO QAM RF: 0 rosuvastatin [Crestor] 40 mg tablet 40 mg PO DAILY RF: 0 metoprolol succinate 50 mg tablet extended release 24 hr 50 mg PO DAILY RF: 0 spironolactone 50 mg tablet 50 mg PO BID RF: 0 warfarin 5 mg tablet 5 mg PO DAILY RF: 0 metolazone 2.5 mg tablet 2.5 mg PO UD RF: 0 quetiapine [Seroquel] 200 mg tablet 200 mg PO HS PRN (Reason: Sleep) RF: 0
[2021-02-05 00:10] LABS: INR 2.7 (0.9-1.1); Partial Thromboplastin Ratio 1.6; Partial Thromboplastin Time 42.7 Seconds (21.0-31.0); Prothrombin Time 25.2 Seconds (9.0-12.0)
[2021-02-05 00:15] LABS: Basophils # (auto) 0.07 K/uL (0-0.2); Basophils % (auto) 0.6 %; Eosinophils # (auto) 0.29 K/uL (0-0.5); Eosinophils % (auto) 2.5 %; Hemoglobin 12.7 g/dL (14.0-18.0); Immature Granulocytes # (auto) 0.13 K/uL (0.00-0.02); Immature Granulocytes % (auto) 1.1 %; Lymphocytes # (auto) 2.72 K/uL (1.2-3.4); Lymphocytes % (auto) 23.7 %; Mean Corpuscular Hemoglobin 27.8 pg (25-34); Mean Corpuscular Hgb Conc 31.8 g/dL (32-36); Mean Corpuscular Volume 87.5 fL (80-100); Mean Platelet Volume 10.2 fL (7.4-10.4); Monocytes # (auto) 1.04 K/uL (0.11-0.59); Monocytes % (auto) 9.1 %; Neutrophils # (auto) 7.23 K/uL (1.4-6.5); Platelet Count 231 K/uL (130-400); RDW Coefficient of Variation 17.2 % (11.5-14.5); RDW Standard Deviation 55.5 fL (36.4-46.3); Red Blood Count 4.57 M/uL (4.7-6.1); White Blood Count 11.48 K/uL (4.8-10.8)
[2021-02-05 00:28] LABS: BUN Creatinine Ratio 9.8 (10-20); Calcium 8.3 mg/dl (8.5-10.1); Est GFR (Non-African American) 56.1 ml/min; Magnesium 2.3 mg/dl (1.8-2.4); Potassium 4.2 mmol/L (3.5-5.1)
[2021-02-05 00:34] LABS: Albumin Globulin Ratio 0.8 (0.9-2); Bilirubin,Total 0.3 mg/dl (0.2-1); Globulin 3.7 gm/dl (2.5-4.0); Total Protein 6.7 gm/dl (6.4-8.2); Troponin I 0.115 ng/ml (0-0.045)
[2021-02-05] MEDS ORDERED: FUROSEMIDE 40 MG/4 ML VIAL IV STA (01:33)
[2021-02-05] MEDS ORDERED: oxyCODONE/ACETAMINOPHEN 5mg/325mg TAB PO STA (02:26)
--- NOTE | 2021-02-05 03:15 | History & Physical Report ---
Date of Service February 05, 2021 Assessment & Plan (1) SOB (shortness of breath): With fluid retention Mild CHF hx right-sided heart failure/cor pulmonale/OSCAR on BiPAP ? Home Celebrex contributory to fluid retention Troponin elevation secondary to above SSS status post PPM on Coumadin, A. fib with paced complexes, INR therapeutic hx CAD status post CABG hypertension, stable hyperlipidemia, on statin Rx CRI, creatinine better than baseline chronic back pain, at baseline Mood disorder, stable past alcohol abuse as per records New onset anemia, stool FOBT done at the ER negative OBS PCU Continue home diuretic Rx Strict I/Os, daily weights, CHF education, fluid restriction Hold Celebrex Patient counseled about fluid retention and NSAID use. Cardiology consult Re: Shortness of breath, fluid retention Follow troponin TTE Re troponin elevation, CHF Anemia work-up, transfuse PRBC if hemoglobin less than 8 and or for symptomatic anemia DVT prophylaxis. Coumadin INR goal between 2 and 3 Full code Text document was generated using [employer] voice recognition software. It may contain grammatical or spelling errors. Kindly contact undersigned for clarification of any documentation item in question. History of Present Illness Chief Complaint: Shortness of breath Primary Care Provider: Jp Morillo MD History obtained from patient and records. Medical history significant for chronic right-sided heart failure, cor pulmonale, OSCAR on BiPAP, SSS status post PPM on Coumadin, CAD status post CABG, hypertension, hyperlipidemia, CRI (baseline creatinine 1.6), chronic back pain, mood disorder, past tobacco/alcohol abuse as per records. Last confinement February 2020 for syncope secondary to sick sinus syndrome status post PPM. Few days history of shortness of breath worse on exertion without unusual cough symptoms. Transient chest pain. Increase bilateral leg swelling despite diuretic/CPAP compliance. Thinks he may have gained 7 pounds in the last few days. Denies abdominal pain/black/bloody stools. Patient consulted ER for evaluation. Medical History as above Surgical History : CABG, dental surgery, orthopedic procedures Family History : Pancreatitis, leukemia Personal/Social history : Past tobacco/alcohol abuse, disabled Allergies Allergy/AdvReac Type Severity Reaction Status Date / Time morphine AdvReac Mild nausea and Verified 02/05/21 01:33 vomiting Home Medications Medication Instructions Recorded Confirmed Type albuterol sulfate [ProAir HFA] 2 puff INHALATION QID PRN 05/04/18 02/05/21 History ferrous sulfate 325 mg PO DAILY 05/04/18 02/05/21 History gabapentin 600 mg PO BID 05/04/18 02/05/21 History hydroxyzine HCl 50 mg PO BID PRN 05/04/18 02/05/21 History isosorbide mononitrate 30 mg PO QAM 05/04/18 02/05/21 History lamotrigine [Lamictal] 200 mg PO BID 05/04/18 02/05/21 History nitroglycerin [Nitrostat] 0.4 mg SUBLINGUAL DIRECTED PRN 05/04/18 02/05/21 History topiramate [Topamax] 25 mg PO BID 05/04/18 02/05/21 History zolpidem [Ambien] 5 mg PO HS PRN 05/04/18 02/05/21 History albuterol sulfate 2.5 mg INHALATION Q4 PRN 03/03/20 02/05/21 History aripiprazole [Abilify] 5 mg PO QAM 03/03/20 02/05/21 History celecoxib [Celebrex] 200 mg PO BID 03/03/20 02/05/21 History escitalopram oxalate [Lexapro] 10 mg PO DAILY 03/03/20 02/05/21 History fluticasone propion-salmeterol 1 inh INHALATION BID 03/03/20 02/05/21 History [Advair Diskus] oxycodone-acetaminophen [Percocet] 1 tab PO Q6 PRN 03/03/20 02/05/21 History potassium chloride [Klor-Con M20] 40 meq PO TID 03/03/20 02/05/21 History rosuvastatin [Crestor] 40 mg PO DAILY 03/03/20 02/05/21 History torsemide 60 mg PO BID 03/03/20 02/05/21 History metolazone 2.5 mg PO UD 02/05/21 02/05/21 History metoprolol succinate 50 mg PO DAILY 02/05/21 02/05/21 History quetiapine [Seroquel] 200 mg PO HS PRN 02/05/21 02/05/21 History spironolactone 50 mg PO BID 02/05/21 02/05/21 History warfarin 5 mg PO DAILY 02/05/21 02/05/21 History Past Med/Surg History Medical History CAD (coronary artery disease) CAD (coronary artery disease) Chronic atrial fibrillation Chronic back pain CKD (chronic kidney disease) stage 3, GFR 30-59 ml/min Cor pulmonale Depression HTN (hypertension) Hyperlipidemia Hypertension Obesities, morbid OSCAR (obstructive sleep apnea) Volume overload Surgical History S/P CABG x 4 Social History Smoking Status: Never smoker Second Hand Exposure: Yes; Hx Alcohol Use: No Hx Substance Use: Yes Last Used Substance: Unknown Last Used Substance Other:: this morning Substance Use Type Other:: Patient states uses medical/ pharmaceutical marijuana Preferred Language: Burmese Communication Ability: Effective Hearing Ability: Normal Medicine Tech Required: No Beliefs That Will Affect Care: None marital status: Single Current Living Situation: Alone Current Living Situation Comment: fist floor appartment Other Information That Helps Us Care for You: No Feels Safe at Home: Yes Safety Concerns: Feels Safe At This Time Assistive Devices: CPAP and Walker Review of Systems Review of Systems: As per HPI, all 10 systems reviewed, all other ROS negative Physical Exam Physical Exam: GENERAL: Slightly uncomfortable, morbidly obese, no respiratory distress SKIN: Normal color, warm HEENT: [place] palpebral conjunctivae, no ptosis, dry buccal mucosa NECK : Supple, short neck, no tenderness CHEST : Decreased breath sounds, no tenderness HEART : Irregular, no obvious murmurs ABDOMEN: distention, nontender RECTAL : Intact sphincter, brown stool (FOBT negative) EXTREMITIES : Bilateral LE swelling, no LE tenderness, no other conspicuous deformities noted NEUROLOGIC : Coherent, no facial asymmetry, no other gross focality Results & Data Results & Data ([facility]) Vital Signs (Past 12 Hours) Vital Signs Temp Pulse Pulse Resp BP BP Pulse Ox 02/05/21 02:04 76 20 109/63 95 02/05/21 00:21 72 16 119/65 96 02/04/21 22:55 82 22 122/66 96 02/04/21 22:25 95 02/04/21 20:50 36.6 C 87 22 146/74 H 93 02/04/21 20:48 95 Laboratory Results Laboratory Results WBC 11.48 K/uL (4.8-10.8) H 02/04/21 23:33 RBC 4.57 M/uL (4.7-6.1) L 02/04/21 23:33 Hgb 12.7 g/dL (14.0-18.0) L 02/04/21 23:33 Hct 40.0 % (42-52) L 02/04/21 23:33 MCV 87.5 fL (80-100) 02/04/21 23:33 MCH 27.8 pg (25-34) 02/04/21 23: MCHC 31.8 g/dL (32-36) L 02/04/21 23:33 RDW Std Deviation 55.5 fL (36.4-46.3) H 02/04/21 23: RDW Coeff of Karlene 17.2 % (11.5-14.5) H 02/04/21 23: Plt Count 231 K/uL (130-400) 02/04/21 23: MPV 10.2 fL (7.4-10.4) 02/04/21 23:33 Immature Gran % (Auto) 1.1 % 02/04/21 23:33 Neut % (Auto) 63.0 % 02/04/21 23:33 Lymph % (Auto) 23.7 % 02/04/21 23:33 Cassia % (Auto) 9.1 % 02/04/21 23:33 Eos % (Auto) 2.5 % 02/04/21 23:33 Baso % (Auto) 0.6 % 02/04/21 23:33 Neut # (Auto) 7.23 K/uL (1.4-6.5) H 02/04/21 23:33 Lymph # (Auto) 2.72 K/uL (1.2-3.4) 02/04/21 23:33 Cassia # (Auto) 1.04 K/uL (0.11-0.59) H 02/04/21 23:33 Eos # (Auto) 0.29 K/uL (0-0.5) 02/04/21 23:33 Baso # (Auto) 0.07 K/uL (0-0.2) 02/04/21 23:33 Immature Gran # (Auto) 0.13 K/uL (0.00-0.02) H 02/04/21 23:33 PT 25.2 Seconds (9.0-12.0) H 02/04/21 23:33 INR 2.7 (0.9-1.1) H 02/04/21 23:33 APTT 42.7 Seconds (21.0-31.0) H 02/04/21 23:33 PTT Ratio 1.6 02/04/21 23:33 Sodium 136 mmol/L (136-145) 02/04/21 23:33 Potassium 4.2 mmol/L (3.5-5.1) 02/04/21 23:33 Chloride 103 mmol/L (98-107) 02/04/21 23: Carbon Dioxide 31 mmol/L (21-32) 02/04/21 23:33 Anion Gap 2.0 (3-11) L 02/04/21 23:33 BUN 13 mg/dl (7-18) 02/04/21 23: Creatinine 1.37 mg/dl (0.6-1.4) 02/04/21 23:33 Est Cr Clr Drug Dosing 86.0 ml/min 02/04/21 23:33 Est GFR ( Amer) 65.0 ml/min 02/04/21 23:33 Est GFR (Non-Af Amer) 56.1 ml/min 02/04/21 23:33 BUN/Creatinine Ratio 9.8 (10-20) L 02/04/21 23:33 Glucose 94 mg/dl (70-99) 02/04/21 23:33 Calcium 8.3 mg/dl (8.5-10.1) L 02/04/21 23:33 Magnesium 2.3 mg/dl (1.8-2.4) 02/04/21 23:33 Total Bilirubin 0.3 mg/dl (0.2-1) 02/04/21 23:33 AST 70 U/L (15-37) H 02/04/21 23:33 ALT 93 U/L (12-78) H 02/04/21 23:33 Alkaline Phosphatase 205 U/L (45-117) H 02/04/21 23:33 Troponin I 0.115 ng/ml (0-0.045) H* 02/04/21 23:33 NT-Pro-B Natriuret Pep 809 pg/ml (0-900) 02/04/21 23:33 Total Protein 6.7 gm/dl (6.4-8.2) 02/04/21 23:33 Albumin 3.0 gm/dl (3.4-5.0) L 02/04/21 23:33 Globulin 3.7 gm/dl (2.5-4.0) 02/04/21 23:33 Albumin/Globulin Ratio 0.8 (0.9-2) L 02/04/21 23:33 COVID-19 Eval Order Covid19 at [facility] 02/05/21 01:39 SARS-CoV-2 (PCR) NEGATIVE (Negative) 02/05/21 01:39 Diagnostic Findings Chest x-ray as per my interpretation cardiomegaly EKG as per my interpretation : Rate 70, A. fib, paced rhythm
[2021-02-05] MEDS ORDERED: ALBUT/IPRATROP 3MG/0.5MG NEB 3 ML VIAL NEB STA (03:16)
[2021-02-05 03:18] LABS: Thyroid Stimulating Hormone 2.09 uIu/ml (0.300-4.500)
[2021-02-05] MEDS ORDERED: ALBUT/IPRATROP 3MG/0.5MG NEB 3 ML VIAL ONE (03:26)
[2021-02-05] MEDS ORDERED: ACETAMINOPHEN 325 MG TAB PO PRN (04:56)
[2021-02-05] MEDS ORDERED: NITROGLYCERIN SL 0.4 MG/TAB TAB SL PRN (04:56)
[2021-02-05] MEDS ORDERED: PROMETHAZINE HCL 12.5 MG in SODIUM CHLORIDE 0.9% 50 ML IV PRN (04:56)
--- NOTE | 2021-02-05 07:17 | XRay Report ---
XR chest 1V portable CLINICAL HISTORY: Shortness of breath COMPARISON STUDY: 03/14/2020 FINDINGS: There are postsurgical changes of a midline sternotomy. The heart remains enlarged. There i s a left subclavian central venous pacemaker. There is no failure. There is no focal pulmonary consol idation. There are no pleural effusions. There is a calcified granuloma at the right lung base.[ IMPRESSION: Persistent cardiomegaly. No acute findings ACT 112: Negative or not required by law. Electronically signed by: Pankaj Cornejo M.D. 02/05/2021 7:16 AM
--- NOTE | 2021-02-05 08:32 | Cardiology Consultation ---
Date of Consultation February 05, 2021 Assessment & Plan (1) Right-sided congestive heart failure: (2) CKD (chronic kidney disease) stage 3, GFR 30-59 ml/min: (3) Chronic atrial fibrillation: (4) CAD (coronary artery disease): (5) GERD with apnea: (6) Morbid obesity: (7) Hypokalemia: (8) Syncope: (9) SSS (sick sinus syndrome): (10) Status post placement of cardiac pacemaker: (11) Exertional dyspnea: The patient presents with acute on chronic right-sided heart failure secondary to admitted dietary noncompliance. Treatment options discussed with the patient at this point will adjust his diuretics to facilitate diuresis. To that end, I will start Bumex 1 mg IV every 8 hours and give him a dose of p.o. metolazone this a.m. as well. I will increase his potassium to 40 mEq 3 times daily. Strict I's and O's and daily weights with the same scale should be maintained. He will be continued on his outpatient doses of Imdur, metoprolol, Crestor and warfarin. At his most recent admission to [facility] his spironolactone was increased to 100 mg daily to help maintain potassium levels and I will decrease this to 50 mg daily today given the off label usage. History of Present Illness Attending Physician: Dante Huynh MD History of Present Illness The patient is a medically complex 60-year-old gentleman who presented to [facility] on 02/04/2021 with complaints of shortness of breath and 7 pound weight gain within 24 hours. He notes that he has been in his normal state of health recently but admittedly has not been following a low-sodium diet. His diet includes, almost exclusively, TV dinners, cold cuts and regular soda. He also notes he has been drinking more water than he supposed to lately as well. He states that he knows that he is not following the CHF diet that has been reviewed with him but states that this is what he is able to do. He has been feeling increased shortness of breath with exertion for the last several weeks but admittedly does not exert himself much. On the morning of 02/04/2021 he noted that he gained 7 pounds overnight and came into the emergency department. He was scheduled to see me in the CHF clinic this morning. He states his been compliant with his meds and [facility] at home visits with him often. He also states he gets occasional chest pain which he describes as sharp/stabbing and very fleeting nature lasting approximately 1 second that seems to have increased in frequency with his shortness of breath. Otherwise, he notes that this chest pain has been going on for several years. Past medical history as per most recent outpatient cardiology note: 1. Premature atherosclerotic coronary disease status post coronary artery bypass grafting x4 in 2001 at age 43. 2. Chronic atrial fibrillation on chronic anticoagulation. 3. 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 Obstructive sleep apnea on BiPAP supplementation with past oxygen use as well nocturnally. 5. Morbid obesity. 6. History of hyperlipidemia. 7. History of hypertension. 8. Cor pulmonale with right heart failure and edema. 9. History of medication and diet noncompliance Allergies Allergy/AdvReac Type Severity Reaction Status Date / Time morphine AdvReac Mild nausea and Verified 02/05/21 01:33 vomiting Home Medications Medication Instructions Recorded Confirmed Type albuterol sulfate [ProAir HFA] 2 puff INHALATION QID PRN 05/04/18 02/05/21 History ferrous sulfate 325 mg PO DAILY 05/04/18 02/05/21 History gabapentin 600 mg PO BID 05/04/18 02/05/21 History hydroxyzine HCl 50 mg PO BID PRN 05/04/18 02/05/21 History isosorbide mononitrate 30 mg PO QAM 05/04/18 02/05/21 History lamotrigine [Lamictal] 200 mg PO BID 05/04/18 02/05/21 History nitroglycerin [Nitrostat] 0.4 mg SUBLINGUAL DIRECTED PRN 05/04/18 02/05/21 History topiramate [Topamax] 25 mg PO BID 05/04/18 02/05/21 History zolpidem [Ambien] 5 mg PO HS PRN 05/04/18 02/05/21 History albuterol sulfate 2.5 mg INHALATION Q4 PRN 03/03/20 02/05/21 History aripiprazole [Abilify] 5 mg PO QAM 03/03/20 02/05/21 History celecoxib [Celebrex] 200 mg PO BID 03/03/20 02/05/21 History escitalopram oxalate [Lexapro] 10 mg PO DAILY 03/03/20 02/05/21 History fluticasone propion-salmeterol 1 inh INHALATION BID 03/03/20 02/05/21 History [Advair Diskus] oxycodone-acetaminophen [Percocet] 1 tab PO Q6 PRN 03/03/20 02/05/21 History potassium chloride [Klor-Con M20] 40 meq PO TID 03/03/20 02/05/21 History rosuvastatin [Crestor] 40 mg PO DAILY 03/03/20 02/05/21 History torsemide 60 mg PO BID 03/03/20 02/05/21 History metolazone 2.5 mg PO UD 02/05/21 02/05/21 History metoprolol succinate 50 mg PO DAILY 02/05/21 02/05/21 History quetiapine [Seroquel] 200 mg PO HS PRN 02/05/21 02/05/21 History spironolactone 50 mg PO BID 02/05/21 02/05/21 History warfarin 5 mg PO DAILY 02/05/21 02/05/21 History Patient History Medical History CAD (coronary artery disease) CAD (coronary artery disease) Chronic atrial fibrillation Chronic back pain CKD (chronic kidney disease) stage 3, GFR 30-59 ml/min Cor pulmonale Depression HTN (hypertension) Hyperlipidemia Hypertension Obesities, morbid OSCAR (obstructive sleep apnea) Volume overload Surgical History S/P CABG x 4 Social History Smoking Status: Never smoker Second Hand Exposure: Yes; Hx Alcohol Use: No Hx Substance Use: Yes Last Used Substance: Unknown Last Used Substance Other:: this morning Substance Use Type Other:: Patient states uses medical/ pharmaceutical marijuana Preferred Language: Vietnamese Communication Ability: Effective Hearing Ability: Normal Product Support Manager Required: No Beliefs That Will Affect Care: None marital status: Single Current Living Situation: Alone Current Living Situation Comment: fist floor appartment Other Information That Helps Us Care for You: No Feels Safe at Home: Yes Safety Concerns: Feels Safe At This Time Assistive Devices: CPAP and Walker Review of Systems Review of Systems: All systems reviewed & are unremarkable except as noted in HPI & below Physical Exam Physical Exam: Physical Exam: General: Awake, alert and oriented x 3. No acute distress. Morbidly obese HEENT: Normocephalic, atraumatic. Pupils equal, round and reactive to light and accommodation. Extraocular muscles are intact. Anicteric sclera. Moist mucous membranes. Neck: No JVD. No bruit. Cardiovascular: Regular. But distant unable appreciate murmurs rubs or gallops. Pulmonary: Clear to auscultation bilaterally. No rales, rhonchi, or wheezing. Abdomen: Bowel sounds x 4, soft. No rebound, guarding or tenderness. No organomegaly. Extremities: No clubbing, cyanosis. +2 bilateral lower extremity pitting edema with chronic venous stasis changes. +2 pedal pulses bilaterally. Skin: Warm and dry. Results & Data ([facility]) Vital Signs (Past 12 Hours) Vital Signs Temp Pulse Pulse Resp BP BP Pulse Ox 02/05/21 08:00 36.8 C 77 22 141/69 H 94 02/05/21 04:56 02/05/21 04:24 36.7 C 73 20 120/76 96 02/05/21 04:12 74 20 101/76 96 02/05/21 03:29 78 20 96 02/05/21 02:04 76 20 109/63 95 02/05/21 00:21 72 16 119/65 96 02/04/21 22:55 82 22 122/66 96 02/04/21 22:25 95 02/04/21 20:50 36.6 C 87 22 146/74 H 93 02/04/21 20:48 95 Pulse Ox 02/05/21 08:00 02/05/21 04:56 96 02/05/21 04:24 02/05/21 04:12 02/05/21 03:29 02/05/21 02:04 02/05/21 00:21 02/04/21 22:55 02/04/21 22:25 02/04/21 20:50 02/04/21 20:48 (1) Syncope Syncope type: unspecified Qualified Code(s): R55 - Syncope and collapse
[2021-02-05] MEDS: FLUTICASONE/VILANTEROL 200/25MCG 14 PUFFS/INHALER INH SCH (08:38)
[2021-02-05] MEDS: ISOSORBIDE MONO EXTENDED REL 30 MG TABCR PO SCH (08:42)
[2021-02-05] MEDS: ROSUVASTATIN CALCIUM 20 MG TAB PO SCH (08:42)
[2021-02-05] MEDS: GABAPENTIN 600 MG TAB PO SCH ×2 (08:42→20:32)
[2021-02-05] MEDS: METOPROLOL SUCC 50MG EXT REL TAB PO SCH (08:42)
[2021-02-05] MEDS: ESCITALOPRAM OXALATE 10 MG TAB PO SCH (08:42)
[2021-02-05] MEDS: lamoTRIgine 100 MG TAB PO SCH ×2 (08:42→20:33)
[2021-02-05] MEDS: FERROUS SULFATE 325 MG TAB PO SCH (08:42)
[2021-02-05] MEDS: ARIPiprazole 5 MG TAB PO SCH (08:42)
[2021-02-05] MEDS: TOPIRAMATE 25 MG TAB PO SCH ×2 (08:42→20:33)
[2021-02-05] MEDS ORDERED: POTASSIUM CHLORIDE CRTAB 20 MEQ TABCR PO SCH (09:00)
[2021-02-05] MEDS ORDERED: SPIRONOLACTONE 25 MG TAB PO SCH (09:00)
[2021-02-05] MEDS ORDERED: TORSEMIDE 20 MG TAB PO SCH (09:00)
[2021-02-05] MEDS ORDERED: metOLazone 5 MG TABLET PO ONE (09:45)
[2021-02-05] MEDS: oxyCODONE/ACETAMINOPHEN 5mg/325mg TAB PO PRN (09:47)
[2021-02-05] MEDS: BUMETANIDE 1 MG in SYRINGE 0 ML IV SCH ×3 (09:48→20:31)
[2021-02-05 10:06] LABS: Albumin Level 2.9 gm/dl (3.4-5.0); BUN Creatinine Ratio 10.7 (10-20); Calcium 8.1 mg/dl (8.5-10.1); Creatinine Clr Calc Pharmacy 80.5 ml/min; Est GFR (African American) 60.7 ml/min; Est GFR (Non-African American) 52.3 ml/min; Potassium 3.7 mmol/L (3.5-5.1)
[2021-02-05 10:11] LABS: Albumin Globulin Ratio 0.8 (0.9-2); Bilirubin,Total 0.5 mg/dl (0.2-1); Globulin 3.5 gm/dl (2.5-4.0); Total Protein 6.4 gm/dl (6.4-8.2); Troponin I 0.102 ng/ml (0-0.045)
[2021-02-05] MEDS: ALBUT/IPRATROP 3MG/0.5MG NEB 3 ML VIAL NEB PRN ×2 (13:15→20:42)
[2021-02-05 14:51] LABS: Appearance Urine Clear (Clear); Bacteria Urine Automated Negative (Negative); Bilirubin Urine Negative (Negative); Blood Urine Negative (Negative); Color Urine Yellow; Glucose Urine UA Negative (Negative); Ketones Urine Negative (Negative); Leukocyte Esterase Urine Trace (Negative); Nitrite Urine Negative (Negative); Protein Urine Negative (Negative); RBC Urine Automated 0-4 /hpf (0-4); Specific Gravity Urine 1.008 (1.000-1.030); Urobilinogen Urine Negative (Negative)
--- NOTE | 2021-02-05 15:21 | Electrocardiogram Report ---
Test Reason : Blood Pressure : / mmHG Vent. Rate : 071 BPM Atrial Rate : 063 BPM P-R Int : 000 ms QRS Dur : 088 ms QT Int : 408 ms P-R-T Axes : 000 088 239 degrees QTc Int : 443 ms Atrial fibrillation with frequent ventricular-paced complexes Low voltage QRS Abnormal ECG When compared with ECG of 14-MAR-2020 03:59, No significant change Confirmed by Murphy Pennington ([id number]) on 02/05/2021 3:21:14 PM Referred By: REFERRED SELF Confirmed By:Murphy Pennington
[2021-02-05] MEDS: POTASSIUM CHLORIDE CRTAB 20 MEQ TABCR PO SCH ×2 (15:34→20:33)
--- NOTE | 2021-02-05 18:40 | Hospitalist Progress Note ---
Date of Service February 05, 2021 Assessment & Plan (1) SOB (shortness of breath): (2) Right-sided congestive heart failure: Present on admission with worsening shortness of breath associated with weight gain CXR showed Persistent cardiomegaly. No acute findings Received Lasix 40 mg IV x1 Cardiology on board Continue Bumex 1 mg every 8hrs Continue spironolactone Continue fluid restriction with 2 L Continue monitor I/O Monitor BMP while on diuretic Elevated troponin Mostly related to acute right heart failure Troponin trending down Echo showed no wall motion abnormality with ejection fraction 55 to 60% Continue metoprolol and statin Chronic A. fib Sick sinus syndrome Single-chamber pacemaker i Continue metoprolol 50 mg daily Continue Coumadin with INR 2.7 today H/O CAD S/P CABG Lopressor held due to above Continue statin,aspirin, Isosorbide Hyperlipidemia On Rosuvastatin Obstructive sleep apnea CPAP at bedtime CKD III Creatinine at baseline Monitor renal function Avoid Nephrotoxic agents as able Morbid obesity BMI:61.3 Depression Continue home medications HTN Continue Lopressor and Imdur Monitor BP DVT Px: on Coumadin Code Status Full code Admission and Anticipated Discharge Date Admission Date: February 05, 2021 Subjective Patient was seen and examined for follow-up of shortness of breath Lying in bed with no acute distress Patient said his breathing improved He said that shortness of breath only occurs now with exertion Denies any chest pain, palpitation, dizziness, and fever Review of Systems Review of Systems: All systems reviewed & are unremarkable except as noted in Subjective Physical Exam Physical Exam: General- No acute distress Head- atraumatic Eyes- PERRL, EOMI, ENT- oropharynx clear Neck- supple, no JVD Lungs- clear to auscultation Heart- regular rhythm; no murmur Abdomen- normal bowel sounds, soft, nontender Extremities- no calf tenderness, +murmur Neuro- alert, oriented x 3; PERRL, EOMI; no facial palsy; no dysarthria Skin- warm & dry Results & Data Results & Data ([facility]) Vital Signs (Past 12 Hours) Vital Signs Temp Pulse Pulse Resp BP Pulse Ox 02/05/21 16:00 36.6 C 84 18 135/80 98 02/05/21 13:15 78 20 96 02/05/21 11:37 36.8 C 77 18 142/63 H 93 02/05/21 08:00 36.8 C 77 22 141/69 H 94
[2021-02-05] MEDS ORDERED: WARFARIN SOD 5 MG TAB PO ONE (19:02)
[2021-02-05] MEDS: QUEtiapine FUMARATE 200 MG TAB PO PRN (22:45)
[2021-02-06] MEDS: oxyCODONE/ACETAMINOPHEN 5mg/325mg TAB PO PRN ×2 (04:15→12:20)
[2021-02-06 07:00] LABS: Basophils # (auto) 0.05 K/uL (0-0.2); Basophils % (auto) 0.5 %; Eosinophils # (auto) 0.19 K/uL (0-0.5); Eosinophils % (auto) 1.8 %; Hematocrit (blood only) 37.4 % (42-52); Hemoglobin 12.4 g/dL (14.0-18.0); Immature Granulocytes # (auto) 0.07 K/uL (0.00-0.02); Immature Granulocytes % (auto) 0.6 %; Lymphocytes # (auto) 1.74 K/uL (1.2-3.4); Lymphocytes % (auto) 16.1 %; Mean Corpuscular Hemoglobin 28.8 pg (25-34); Mean Corpuscular Hgb Conc 33.2 g/dL (32-36); Mean Corpuscular Volume 86.8 fL (80-100); Mean Platelet Volume 10.4 fL (7.4-10.4); Monocytes # (auto) 0.97 K/uL (0.11-0.59); Monocytes % (auto) 8.9 %; Neutrophils # (auto) 7.82 K/uL (1.4-6.5); Neutrophils % (auto) 72.1 %; Platelet Count 202 K/uL (130-400); RDW Standard Deviation 54.5 fL (36.4-46.3); Red Blood Count 4.31 M/uL (4.7-6.1); Reticulocyte % 1.8 % (0.5-2.0); Reticulocytes # 0.08 10^6/uL (0.02-0.10); White Blood Count 10.84 K/uL (4.8-10.8)
[2021-02-06 07:08] LABS: INR 2.2 (0.9-1.1); Prothrombin Time 20.9 Seconds (9.0-12.0)
[2021-02-06] MEDS: ALBUT/IPRATROP 3MG/0.5MG NEB 3 ML VIAL NEB PRN (07:25)
[2021-02-06 07:32] LABS: BUN Creatinine Ratio 10.7 (10-20); Calcium 8.5 mg/dl (8.5-10.1); Creatinine Clr Calc Pharmacy 72.4 ml/min; Est GFR (African American) 54.3 ml/min; Est GFR (Non-African American) 46.8 ml/min; Potassium 3.6 mmol/L (3.5-5.1)
[2021-02-06 07:36] LABS: Ferritin 72.5 ng/ml (8-388)
[2021-02-06] MEDS: BUMETANIDE 1 MG in SYRINGE 0 ML IV SCH ×3 (08:13→22:02)
[2021-02-06] MEDS: FERROUS SULFATE 325 MG TAB PO SCH (08:13)
[2021-02-06] MEDS: ESCITALOPRAM OXALATE 10 MG TAB PO SCH (08:13)
[2021-02-06] MEDS: lamoTRIgine 100 MG TAB PO SCH ×2 (08:14→22:03)
[2021-02-06] MEDS: GABAPENTIN 600 MG TAB PO SCH ×2 (08:14→22:03)
[2021-02-06] MEDS: ISOSORBIDE MONO EXTENDED REL 30 MG TABCR PO SCH (08:14)
[2021-02-06] MEDS: POTASSIUM CHLORIDE CRTAB 20 MEQ TABCR PO SCH ×4 (08:14→22:05)
[2021-02-06] MEDS: TOPIRAMATE 25 MG TAB PO SCH ×2 (08:14→22:04)
[2021-02-06] MEDS: ROSUVASTATIN CALCIUM 20 MG TAB PO SCH (08:14)
[2021-02-06] MEDS: METOPROLOL SUCC 50MG EXT REL TAB PO SCH (08:14)
[2021-02-06] MEDS: ARIPiprazole 5 MG TAB PO SCH (08:14)
[2021-02-06] MEDS: FLUTICASONE/VILANTEROL 200/25MCG 14 PUFFS/INHALER INH SCH (08:15)
[2021-02-06] MEDS: SPIRONOLACTONE 25 MG TAB PO SCH (08:15)
[2021-02-06 11:41] LABS: Folate (Folic Acid) 6.7 ng/ml (>5.38)
--- NOTE | 2021-02-06 11:49 | Cardiology Progress Note ---
Date of Service February 06, 2021 Assessment & Plan (1) Right-sided congestive heart failure: (2) CKD (chronic kidney disease) stage 3, GFR 30-59 ml/min: (3) Chronic atrial fibrillation: (4) CAD (coronary artery disease): (5) GERD with apnea: (6) Morbid obesity: (7) Hypokalemia: (8) Syncope: (9) SSS (sick sinus syndrome): (10) Status post placement of cardiac pacemaker: (11) Exertional dyspnea: The patient presents with acute on chronic right-sided heart failure secondary to admitted dietary noncompliance. Diuresing well with the changes made yesterday. We will continue. Potassium remains decreased and will increase supplementation to 40 mEq every 6 hours. Strict I's and O's and daily weights with the same scale should be maintained. He will be continued on his outpatient doses of Imdur, metoprolol, Crestor and warfarin. Admission and Anticipated Discharge Date Admission Date: February 05, 2021 Subjective Patient seen and examined, chart reviewed. States he is feeling somewhat better from admission. Notes increased diuresis with medication changes. Still short of breath at rest with increased peripheral edema. Denies chest pain. Telemetry reviewed: Ventricularly paced alternating with atrial fibrillation. Review of Systems Review of Systems: All systems reviewed & are unremarkable except as noted in HPI & below Physical Exam Physical Exam: Physical Exam: General: Awake, alert and oriented x 3. No acute distress. Morbidly obese HEENT: Normocephalic, atraumatic. Pupils equal, round and reactive to light and accommodation. Extraocular muscles are intact. Anicteric sclera. Moist mucous membranes. Neck: No JVD. No bruit. Cardiovascular: Regular. But distant unable appreciate murmurs rubs or gallops. Pulmonary: Clear to auscultation bilaterally. No rales, rhonchi, or wheezing. Abdomen: Bowel sounds x 4, soft. No rebound, guarding or tenderness. No organomegaly. Extremities: No clubbing, cyanosis. +2 bilateral lower extremity pitting edema with chronic venous stasis changes. +2 pedal pulses bilaterally. Skin: Warm and dry. Results & Data ([facility]) Vital Signs (Past 12 Hours) Vital Signs Temp Pulse Pulse Resp BP Pulse Ox 02/06/21 08:00 37.0 C 89 22 101/64 95 02/06/21 07:25 83 20 92 02/06/21 03:54 36.8 C 86 19 102/56 L 96 02/06/21 02:29 72 22 93 (1) Syncope Syncope type: unspecified Qualified Code(s): R55 - Syncope and collapse
[2021-02-06] MEDS: WARFARIN SOD 5 MG TAB PO SCH (15:30)
--- NOTE | 2021-02-06 19:43 | Hospitalist Progress Note ---
Date of Service February 06, 2021 Assessment & Plan (1) SOB (shortness of breath): (2) Right-sided congestive heart failure: Present on admission with worsening shortness of breath associated with weight gain CXR showed Persistent cardiomegaly. No acute findings Received Lasix 40 mg IV x1 Cardiology on board Continue Bumex 1 mg every 8hrs Continue spironolactone Continue fluid restriction with 2 L Continue monitor I/O Monitor BMP while on diuretic Elevated troponin Mostly related to acute right heart failure Troponin trending down Echo showed no wall motion abnormality with ejection fraction 55 to 60% Continue metoprolol and statin Chronic A. fib Sick sinus syndrome Single-chamber pacemaker i Continue metoprolol 50 mg daily Continue Coumadin with INR 2.7 today H/O CAD S/P CABG Lopressor held due to above Continue statin,aspirin, Isosorbide Hyperlipidemia On Rosuvastatin Obstructive sleep apnea CPAP at bedtime CKD III Creatinine at baseline Monitor renal function Avoid Nephrotoxic agents as able Morbid obesity BMI:61.3 Depression Continue home medications HTN Continue Lopressor and Imdur Monitor BP DVT Px: on Coumadin Code Status Full code Admission and Anticipated Discharge Date Admission Date: February 05, 2021 Subjective Patient was seen and examined for follow-up of shortness of breath Lying in bed with no distress watching TV He said that his breathing slightly improved But continued to have shortness of breath with exertion He said that earlier today he was having a dry cough Denies any chest pain, palpitation, dizziness, and fever. Review of Systems Review of Systems: All systems reviewed & are unremarkable except as noted in Subjective Physical Exam Physical Exam: General- No acute distress Head- atraumatic Eyes- PERRL, EOMI, ENT- oropharynx clear Neck- supple, no JVD Lungs- clear to auscultation Heart- regular rhythm; no murmur Abdomen- normal bowel sounds, soft, nontender Extremities- no calf tenderness, +murmur Neuro- alert, oriented x 3; PERRL, EOMI; no facial palsy; no dysarthria Skin- warm & dry Results & Data Results & Data ([facility]) Vital Signs (Past 12 Hours) Vital Signs Temp Pulse Resp BP Pulse Ox 02/06/21 19:28 36.8 C 72 19 101/68 92 02/06/21 16:00 36.7 C 74 18 131/59 L 98 02/06/21 12:00 36.5 C 84 16 124/68 98 02/06/21 08:00 37.0 C 89 22 101/64 95
[2021-02-06] MEDS: QUEtiapine FUMARATE 200 MG TAB PO PRN (22:03)
[2021-02-06] MEDS: ZOLPIDEM TARTRATE 5 MG TAB PO PRN (22:03)
[2021-02-07] MEDS: oxyCODONE/ACETAMINOPHEN 5mg/325mg TAB PO PRN ×2 (03:27→15:27)
[2021-02-07] MEDS: POTASSIUM CHLORIDE CRTAB 20 MEQ TABCR PO SCH ×4 (06:05→20:43)
[2021-02-07 07:49] LABS: INR 2.3 (0.9-1.1)
[2021-02-07] MEDS: ESCITALOPRAM OXALATE 10 MG TAB PO SCH (07:50)
[2021-02-07] MEDS: FERROUS SULFATE 325 MG TAB PO SCH (07:50)
[2021-02-07] MEDS: METOPROLOL SUCC 50MG EXT REL TAB PO SCH (07:50)
[2021-02-07] MEDS: ARIPiprazole 5 MG TAB PO SCH (07:50)
[2021-02-07] MEDS: TOPIRAMATE 25 MG TAB PO SCH ×2 (07:51→20:39)
[2021-02-07] MEDS: ISOSORBIDE MONO EXTENDED REL 30 MG TABCR PO SCH (07:51)
[2021-02-07] MEDS: lamoTRIgine 100 MG TAB PO SCH ×2 (07:51→20:40)
[2021-02-07] MEDS: SPIRONOLACTONE 25 MG TAB PO SCH ×2 (07:51→20:40)
[2021-02-07] MEDS: ROSUVASTATIN CALCIUM 20 MG TAB PO SCH (07:51)
[2021-02-07] MEDS: GABAPENTIN 600 MG TAB PO SCH ×2 (07:51→20:41)
[2021-02-07] MEDS: BUMETANIDE 1 MG in SYRINGE 0 ML IV SCH ×3 (07:52→20:39)
[2021-02-07] MEDS: FLUTICASONE/VILANTEROL 200/25MCG 14 PUFFS/INHALER INH SCH (07:52)
[2021-02-07 08:00] LABS: BUN Creatinine Ratio 12.7 (10-20); Calcium 8.8 mg/dl (8.5-10.1); Creatinine Clr Calc Pharmacy 74.3 ml/min; Est GFR (African American) 56.8 ml/min; Potassium 3.5 mmol/L (3.5-5.1)
[2021-02-07] MEDS: guaiFENesin 200 MG TAB PO SCH ×3 (09:12→20:43)
[2021-02-07] MEDS: ALBUT/IPRATROP 3MG/0.5MG NEB 3 ML VIAL NEB PRN (11:09)
--- NOTE | 2021-02-07 13:06 | Cardiology Progress Note ---
Date of Service February 07, 2021 Assessment & Plan (1) Right-sided congestive heart failure: (2) CKD (chronic kidney disease) stage 3, GFR 30-59 ml/min: (3) Chronic atrial fibrillation: (4) CAD (coronary artery disease): (5) GERD with apnea: (6) Morbid obesity: (7) Hypokalemia: (8) Syncope: (9) SSS (sick sinus syndrome): (10) Status post placement of cardiac pacemaker: (11) Exertional dyspnea: The patient presents with acute on chronic right-sided heart failure secondary to admitted dietary noncompliance. Diuresing well We will continue. Potassium remains decreased and will increase supplementation to 40 mEq every 6 hours. Strict I's and O's and daily weights with the same scale should be maintained. He will be continued on his outpatient doses of Imdur, metoprolol, Crestor and warfarin. Potassium remains low at 3.5 despite aggressive supplementation. We will restart p.m. dose of spironolactone to support potassium level and further diuresis. Continue to monitor on telemetry. Continue fluid restriction. Admission and Anticipated Discharge Date Admission Date: February 07, 2021 Subjective Patient seen and examined, chart reviewed, case discussed with nursing and primary team. Patient is very displeased this a.m. due to fluid restriction asking nursing for more soda. States his throat is dry. Breathing improving with incentive spirometer. Patient not ambulating despite recommendations to. Denies chest pain, palpitations, lightheadedness, dizziness or syncope. Telemetry reviewed: Ventricularly paced rhythm. Review of Systems Review of Systems: All systems reviewed & are unremarkable except as noted in HPI & below Physical Exam Physical Exam: Physical Exam: General: Awake, alert and oriented x 3. No acute distress. Morbidly obese HEENT: Normocephalic, atraumatic. Pupils equal, round and reactive to light and accommodation. Extraocular muscles are intact. Anicteric sclera. Moist mucous membranes. Neck: No JVD. No bruit. Cardiovascular: Regular. But distant unable appreciate murmurs rubs or gallops. Pulmonary: Clear to auscultation bilaterally. No rales, rhonchi, or wheezing. Abdomen: Bowel sounds x 4, soft. No rebound, guarding or tenderness. No organomegaly. Extremities: No clubbing, cyanosis. +2 bilateral lower extremity pitting edema with chronic venous stasis changes. +2 pedal pulses bilaterally. Skin: Warm and dry. Results & Data ([facility]) Vital Signs (Past 12 Hours) Vital Signs Temp Pulse Resp BP Pulse Ox 02/07/21 11:59 36.9 C 104 H 18 96/64 L 99 02/07/21 11:10 91 H 20 97 02/07/21 08:11 36.9 C 76 20 101/60 98 02/07/21 03:54 37.0 C 112 H 20 93/67 L 62 L (1) Syncope Syncope type: unspecified Qualified Code(s): R55 - Syncope and collapse
--- NOTE | 2021-02-07 14:18 | CT Scan Report ---
CT chest diagnostic wo con CT DOSE: 1538.43 mGy.cm HISTORY: Shortness of breath. TECHNIQUE: Multiaxial CT images of the chest were performed without contrast. A dose lowering techni que was utilized adhering to the principles of ALARA. COMPARISON: Chest 04/18/2006. FINDINGS: There is a left-sided pacemaker. There is prominence of the mediastinal and pericardial fat . This has progressed in the interval. The heart remains mildly enlarged. No pleural or pericardial e ffusions. Calcified right hilar lymph nodes. No mediastinal hilar lymphadenopathy. Normal esophagus. Normal caliber thoracic aorta. Limited views of the upper abdomen demonstrate a normal liver and adre nal glands. Calcified splenic granulomas are present. There are few partially visualized hypodense le sions within the left kidney. These are incompletely characterized on this noncontrast study. There a re poststernotomy changes. No fractures within the visualized osseous structures. No pneumothorax. Th e central airways are patent. There is a calcified granuloma within the right lower lobe. Small bibas ilar linear densities favor subsegmental atelectasis. Otherwise, no focal lung consolidations to sugg est pneumonia. There is mild respiratory motion artifact. Mild bibasilar bronchial wall thickening. IMPRESSION: 1. Mediastinal lipomatosis which has progressed. 2. There is also prominence of the pericardial fat. 3. Mild cardiomegaly, unchanged. 4. Bibasilar densities consistent with subsegmental atelectasis. Otherwise, no focal lung consolidati ons to suggest pneumonia. 4. Mild bibasilar bronchial wall thickening. ACT 112: Negative or not required by law. Electronically signed by: Prashanth Vazquez M.D. 02/07/2021 2:17 PM
[2021-02-07] MEDS: WARFARIN SOD 5 MG TAB PO SCH (15:28)
--- NOTE | 2021-02-07 18:39 | Hospitalist Progress Note ---
Date of Service February 07, 2021 Assessment & Plan (1) SOB (shortness of breath): (2) Right-sided congestive heart failure: Present on admission with worsening shortness of breath associated with weight gain CXR showed Persistent cardiomegaly. No acute findings Received Lasix 40 mg IV x1 Cardiology on board Continue Bumex 1 mg every 8hrs Continue spironolactone Continue fluid restriction with 2 L Continue monitor I/O Monitor BMP while on diuretic Elevated troponin Mostly related to acute right heart failure Troponin trending down Echo showed no wall motion abnormality with ejection fraction 55 to 60% Continue metoprolol and statin Chronic A. fib Sick sinus syndrome Single-chamber pacemaker i Continue metoprolol 50 mg daily Continue Coumadin with INR 2.[address] chest showed Mediastinal lipomatosis which has progressed. There is also prominence of the pericardial fat. Counseling pt about weight loss Will need to continue monitor outpatient H/O CAD S/P CABG Lopressor held due to above Continue statin,aspirin, Isosorbide Hyperlipidemia On Rosuvastatin Obstructive sleep apnea CPAP at bedtime CKD III Creatinine at baseline Monitor renal function Avoid Nephrotoxic agents as able Morbid obesity BMI:58.9 Counseling about weight loss Depression Continue home medications HTN Continue Lopressor and Imdur Monitor BP DVT Px: on Coumadin Code Status Full code Admission and Anticipated Discharge Date Admission Date: February 07, 2021 Subjective Patient was seen and examined for follow-up of shortness of breath Lying in bed with no acute distress Patient is complaining about fluid restriction He feels like his breathing got worse because of dry throat from the fluid restriction Continue to have shortness of breath with minimal exertion Review of Systems Review of Systems: All systems reviewed & are unremarkable except as noted in Subjective Physical Exam Physical Exam: General- No acute distress Head- atraumatic Eyes- PERRL, EOMI, ENT- oropharynx clear Neck- supple, no JVD Lungs- clear to auscultation Heart- regular rhythm; no murmur Abdomen- normal bowel sounds, soft, nontender Extremities- no calf tenderness, +murmur Neuro- alert, oriented x 3; PERRL, EOMI; no facial palsy; no dysarthria Skin- warm & dry Results & Data Results & Data ([facility]) Vital Signs (Past 12 Hours) Vital Signs Temp Pulse Resp BP Pulse Ox 02/07/21 16:00 36.8 C 78 18 125/63 98 02/07/21 11:59 36.9 C 104 H 18 96/64 L 99 02/07/21 11:10 91 H 20 97 02/07/21 08:11 36.9 C 76 20 101/60 98
[2021-02-07] MEDS: NICOTINE 21 MG/24 HR TDSY TD SCH (20:37)
[2021-02-08] MEDS: QUEtiapine FUMARATE 200 MG TAB PO PRN ×2 (00:51→22:16)
[2021-02-08] MEDS: ZOLPIDEM TARTRATE 5 MG TAB PO PRN ×2 (00:51→22:16)
[2021-02-08] MEDS: POTASSIUM CHLORIDE CRTAB 20 MEQ TABCR PO SCH ×4 (06:33→22:17)
[2021-02-08 07:19] LABS: INR 2.5 (0.9-1.1)
[2021-02-08 07:31] LABS: BUN Creatinine Ratio 14.3 (10-20); Calcium 8.8 mg/dl (8.5-10.1); Creatinine Clr Calc Pharmacy 73.3 ml/min; Est GFR (African American) 56.4 ml/min; Est GFR (Non-African American) 48.7 ml/min; Potassium 3.8 mmol/L (3.5-5.1)
[2021-02-08] MEDS: ROSUVASTATIN CALCIUM 20 MG TAB PO SCH (09:11)
[2021-02-08] MEDS: guaiFENesin 200 MG TAB PO SCH ×2 (09:11→17:25)
[2021-02-08] MEDS: BUMETANIDE 1 MG in SYRINGE 0 ML IV SCH ×3 (09:11→21:23)
[2021-02-08] MEDS: NICOTINE 21 MG/24 HR TDSY TD SCH (09:11)
[2021-02-08] MEDS: FERROUS SULFATE 325 MG TAB PO SCH (09:12)
[2021-02-08] MEDS: GABAPENTIN 600 MG TAB PO SCH ×2 (09:12→21:23)
[2021-02-08] MEDS: ISOSORBIDE MONO EXTENDED REL 30 MG TABCR PO SCH (09:12)
[2021-02-08] MEDS: lamoTRIgine 100 MG TAB PO SCH ×2 (09:12→21:23)
[2021-02-08] MEDS: TOPIRAMATE 25 MG TAB PO SCH ×2 (09:12→21:22)
[2021-02-08] MEDS: METOPROLOL SUCC 50MG EXT REL TAB PO SCH (09:12)
[2021-02-08] MEDS: ESCITALOPRAM OXALATE 10 MG TAB PO SCH (09:12)
[2021-02-08] MEDS: ARIPiprazole 5 MG TAB PO SCH (09:13)
[2021-02-08] MEDS: SPIRONOLACTONE 25 MG TAB PO SCH ×2 (09:13→21:23)
[2021-02-08] MEDS: FLUTICASONE/VILANTEROL 200/25MCG 14 PUFFS/INHALER INH SCH (09:13)
--- NOTE | 2021-02-08 11:07 | Hospitalist Progress Note ---
Date of Service February 08, 2021 Assessment & Plan (1) SOB (shortness of breath): (2) Right-sided congestive heart failure: Present on admission with worsening shortness of breath associated with weight gain CXR showed Persistent cardiomegaly. No acute findings Cardiology on board Continue Bumex 1 mg every 8hrs Continue spironolactone Continue fluid restriction with 2 L Continue monitor I/O Monitor electrolytes while on diuretics Elevated troponin Mostly related to acute right heart failure Troponin trended down (0.115-0.102) Echo showed no wall motion abnormality with ejection fraction 55 to 60% Continue metoprolol and statin Chronic A. fib Sick sinus syndrome Single-chamber pacemaker Continue metoprolol 50 mg daily Continue Coumadin with INR 2.[address] chest showed Mediastinal lipomatosis which has progressed. There is also prominence of the pericardial fat. Continue lifestyle modification Will need to continue monitor outpatient H/O CAD S/P CABG Continue statin,aspirin, Isosorbide, metoprolol succinate Hyperlipidemia On Rosuvastatin Obstructive sleep apnea CPAP at bedtime Period of difficulty to arouse overnight may be due to poor tolerance of our CPAP. Patient reports sister is bringing his CKD III Creatinine at baseline Monitor renal function Avoid Nephrotoxic agents as able Morbid obesity BMI:58.9 Counseling about weight loss provided Depression Continue home medications HTN Continue Lopressor and Imdur Monitor BP DVT Px: on Coumadin Code Status Full code Admission and Anticipated Discharge Date Admission Date: February 07, 2021 Subjective 60-year-old man with chronic right sided heart failure, OSCAR on BiPAP, sick sinus syndrome status post pacemaker on Coumadin, CAD status post CABG, hypertension, CKD who presents with shortness of breath worse with exertion and transient chest pain Being managed for acute on chronic right-sided heart failure. Patient seen and examined this morning. Reports improvement in leg swelling. Reports occasional shortness of breath at rest as well as with exertion Reports that he is not tolerating CPAP while on dialysis does bring in his old machine today. RN reported that he was difficult to arouse at some point yesterday night. Telemetry overnight showed A. fib. Denies any other complaints Review of Systems Review of Systems: All systems reviewed & are unremarkable except as noted in Subjective Physical Exam Constitutional: + well hydrated and + obese; no acute distress Eyes: PERRL, conjunctivae normal, anicteric sclerae ENMT: external ear and nose normal, oropharynx normal Respiratory: normal respiratory effort, lungs clear to auscultation Cardiovascular: Rate/Rhythm: + irregularly irregular S1-S2, pedal edema Gastrointestinal (Abdomen): normal bowel sounds, soft, nontender, no hepatosplenomegaly Musculoskeletal: no cyanosis or clubbing, extremities motor strength 5/5 Neurologic: PERRL, EOMI, accommodation nl, no face palsy, no dysarthria Psychiatric: A+Ox3, euthymic affect Genitourinary: no CVA tenderness Results & Data Results & Data ([facility]) Vital Signs (Past 12 Hours) Vital Signs Temp Pulse Pulse Resp BP Pulse Ox 02/08/21 07:09 36.6 C 70 22 114/78 94 02/08/21 03:34 61 22 95 02/08/21 03:12 36.6 C 62 24 94/67 L 94 02/08/21 01:07 55 L 22 94 02/07/21 23:35 36.5 C 71 22 94/61 L 95 Laboratory Results Abnormal lab results 02/08/21 02/08/21 Range/Units 06:36 06:36 PT 24.0 H (9.0-12.0) Seconds INR 2.5 H (0.9-1.1) BUN 22 H (7-18) mg/dl Creatinine 1.54 H (0.6-1.4) mg/dl
--- NOTE | 2021-02-08 12:52 | Cardiology Progress Note ---
Date of Service February 08, 2021 Assessment & Plan (1) Right-sided congestive heart failure: (2) CKD (chronic kidney disease) stage 3, GFR 30-59 ml/min: (3) Chronic atrial fibrillation: (4) CAD (coronary artery disease): (5) GERD with apnea: (6) Morbid obesity: (7) Hypokalemia: (8) Syncope: (9) SSS (sick sinus syndrome): (10) Status post placement of cardiac pacemaker: (11) Exertional dyspnea: The patient presents with acute on chronic right-sided heart failure secondary to admitted dietary noncompliance. Diuresing well. Renal function has not changed so I believe this denotes that he remains volume overloaded We will continue. Potassium remains decreased and will increase supplementation to 40 mEq every 6 hours. Strict I's and O's and daily weights with the same scale should be maintained. He will be continued on his outpatient doses of Imdur, metoprolol, Crestor and warfarin. Potassium level improved today we will continue with supplementation and current dose of spironolactone. Continue to monitor on telemetry. Continue fluid restriction. Admission and Anticipated Discharge Date Admission Date: February 07, 2021 Subjective Patient seen and examined, chart reviewed. Case discussed with nursing. Continues to diurese but now not allowing for accurate urine output measurements. States he feels the same with occasional episodes of shortness of breath. Notes that he does not feel as though he is getting enough liquids. Telemetry reviewed: Ventricularly paced with underlying atrial fibrillation. Review of Systems Review of Systems: All systems reviewed & are unremarkable except as noted in HPI & below Physical Exam Physical Exam: Physical Exam: General: Awake, alert and oriented x 3. No acute distress. Morbidly obese HEENT: Normocephalic, atraumatic. Pupils equal, round and reactive to light and accommodation. Extraocular muscles are intact. Anicteric sclera. Moist mucous membranes. Neck: No JVD. No bruit. Cardiovascular: Regular. But distant unable appreciate murmurs rubs or gallops. Pulmonary: Clear to auscultation bilaterally. No rales, rhonchi, or wheezing. Abdomen: Bowel sounds x 4, soft. No rebound, guarding or tenderness. No organomegaly. Extremities: No clubbing, cyanosis. +2 bilateral lower extremity pitting edema with chronic venous stasis changes. +2 pedal pulses bilaterally. Skin: Warm and dry. [facility]) Vital Signs (Past 12 Hours) Vital Signs Temp Pulse Pulse Pulse Resp BP Pulse Ox 02/08/21 11:02 36.5 C 69 22 113/72 96 02/08/21 07:09 36.6 C 70 22 114/78 94 02/08/21 03:34 61 22 95 02/08/21 03:12 36.6 C 62 24 94/67 L 94 02/08/21 01:07 55 L 22 94 (1) Syncope Syncope type: unspecified Qualified Code(s): R55 - Syncope and collapse
[2021-02-08] MEDS ORDERED: SERTRALINE HCL 50 MG TABLET PO ONE (15:53)
[2021-02-08] MEDS: WARFARIN SOD 5 MG TAB PO SCH (17:25)
[2021-02-09] MEDS: guaiFENesin 200 MG TAB PO SCH ×3 (00:28→15:19)
[2021-02-09] MEDS: POTASSIUM CHLORIDE CRTAB 20 MEQ TABCR PO SCH ×4 (05:19→23:15)
[2021-02-09 07:26] LABS: INR 2.4 (0.9-1.1); Prothrombin Time 22.3 Seconds (9.0-12.0)
[2021-02-09 07:36] LABS: BUN Creatinine Ratio 15.7 (10-20); Creatinine Clr Calc Pharmacy 75.5 ml/min; Est GFR (African American) 58.7 ml/min; Est GFR (Non-African American) 50.6 ml/min; Magnesium 2.6 mg/dl (1.8-2.4); Potassium 4.1 mmol/L (3.5-5.1)
[2021-02-09 07:37] LABS: Phosphorus 2.6 mg/dl (2.5-4.9)
[2021-02-09] MEDS: GABAPENTIN 600 MG TAB PO SCH ×2 (07:52→21:35)
[2021-02-09] MEDS: BUMETANIDE 1 MG in SYRINGE 0 ML IV SCH ×3 (07:52→21:35)
[2021-02-09] MEDS: lamoTRIgine 100 MG TAB PO SCH ×2 (07:53→21:36)
[2021-02-09] MEDS: FERROUS SULFATE 325 MG TAB PO SCH (07:53)
[2021-02-09] MEDS: TOPIRAMATE 25 MG TAB PO SCH ×2 (07:53→21:37)
[2021-02-09] MEDS: SPIRONOLACTONE 25 MG TAB PO SCH ×2 (07:53→21:36)
[2021-02-09] MEDS: FLUTICASONE/VILANTEROL 200/25MCG 14 PUFFS/INHALER INH SCH (07:54)
[2021-02-09] MEDS: ARIPiprazole 5 MG TAB PO SCH (07:54)
[2021-02-09] MEDS: ESCITALOPRAM OXALATE 10 MG TAB PO SCH (07:54)
[2021-02-09] MEDS: ROSUVASTATIN CALCIUM 20 MG TAB PO SCH (07:54)
[2021-02-09] MEDS: METOPROLOL SUCC 50MG EXT REL TAB PO SCH (07:54)
[2021-02-09] MEDS: ISOSORBIDE MONO EXTENDED REL 30 MG TABCR PO SCH (07:54)
[2021-02-09] MEDS: oxyCODONE/ACETAMINOPHEN 5mg/325mg TAB PO PRN ×3 (08:01→21:48)
[2021-02-09] MEDS: NICOTINE 21 MG/24 HR TDSY TD SCH (08:26)
[2021-02-09] MEDS ORDERED: SERTRALINE HCL 50 MG TABLET PO SCH (09:00)
[2021-02-09] MEDS: ALBUT/IPRATROP 3MG/0.5MG NEB 3 ML VIAL NEB PRN (11:14)
--- NOTE | 2021-02-09 11:54 | Hospitalist Progress Note ---
Date of Service February 09, 2021 Assessment & Plan (1) SOB (shortness of breath): (2) Right-sided congestive heart failure: Present on admission with worsening shortness of breath associated with weight gain CXR showed Persistent cardiomegaly. No acute findings Cardiology on board Acute on chronic right heart failure Continue Bumex 1 mg every 8hrs Continue spironolactone Continue fluid restriction with 2 L Continue monitor I/O Monitor electrolytes while on diuretics Has lost about 12kg since admission Elevated troponin Mostly related to acute right heart failure Troponin trended down (0.115-0.102) Echo showed no wall motion abnormality with ejection fraction 55 to 60% Continue metoprolol and statin Chronic A. fib Sick sinus syndrome Single-chamber pacemaker Continue metoprolol succinate 50 mg daily Continue Coumadin with INR 2.[address] chest showed Mediastinal lipomatosis which has progressed. There is also prominence of the pericardial fat. Continue lifestyle modification Will need to continue monitor outpatient H/O CAD S/P CABG Continue statin,aspirin, Isosorbide, metoprolol succinate Hyperlipidemia On Rosuvastatin Obstructive sleep apnea CPAP at bedtime Period of difficulty to arouse overnight may be due to poor tolerance of our CPAP. Patient reports sister is bringing his CKD III Creatinine at baseline Monitor renal function Avoid Nephrotoxic agents as able Morbid obesity BMI:58.9 Counseling about weight loss provided Depression Continue home medications HTN Continue Lopressor and Imdur Monitor BP DVT Px: on Coumadin Code Status Full code Admission and Anticipated Discharge Date Admission Date: February 07, 2021 Subjective 60-year-old man with chronic right sided heart failure, OSCAR on BiPAP, sick sinus syndrome status post pacemaker on Coumadin, CAD status post CABG, hypertension, CKD who presents with shortness of breath worse with exertion and transient chest pain Being managed for acute on chronic right-sided heart failure. Patient seen and examined. Reports continued improvement in shortness of breath and leg swelling. Denies any other complaints Review of Systems Review of Systems: All systems reviewed & are unremarkable except as noted in Subjective Physical Exam Constitutional: + well hydrated and + obese; no acute distress Eyes: PERRL, conjunctivae normal, anicteric sclerae ENMT: external ear and nose normal, oropharynx normal Respiratory: normal respiratory effort, lungs clear to auscultation Cardiovascular: Rate/Rhythm: + irregularly irregular S1 S2 Gastrointestinal (Abdomen): normal bowel sounds, soft, nontender, no hepatosplenomegaly Musculoskeletal: no cyanosis or clubbing, extremities motor strength 5/5 bilateral pedal edema Neurologic: PERRL, EOMI, accommodation nl, no face palsy, no dysarthria Psychiatric: A+Ox3, euthymic affect Genitourinary: no CVA tenderness Results & Data Results & Data ([facility]) Vital Signs (Past 12 Hours) Vital Signs Temp Pulse Pulse Resp BP Pulse Ox 02/09/21 11:32 36.8 C 111 H 19 112/78 93 02/09/21 11:14 60 18 96 02/09/21 07:03 36.5 C 66 18 117/76 93 02/09/21 03:22 69 22 98 02/09/21 03:18 36.5 C 73 20 116/77 95 Laboratory Results Abnormal lab results 02/09/21 02/09/21 Range/Units 06:40 06:40 PT 22.3 H (9.0-12.0) Seconds INR 2.4 H (0.9-1.1) Sodium 135 L (136-145) mmol/L BUN 23 H (7-18) mg/dl Creatinine 1.49 H (0.6-1.4) mg/dl Magnesium 2.6 H (1.8-2.4) mg/dl
--- NOTE | 2021-02-09 13:13 | Cardiology Progress Note ---
Date of Service February 09, 2021 Assessment & Plan (1) Right-sided congestive heart failure: (2) CKD (chronic kidney disease) stage 3, GFR 30-59 ml/min: (3) Chronic atrial fibrillation: (4) CAD (coronary artery disease): (5) GERD with apnea: (6) Morbid obesity: (7) Hypokalemia: (8) Syncope: (9) SSS (sick sinus syndrome): (10) Status post placement of cardiac pacemaker: (11) Exertional dyspnea: The patient presents with acute on chronic right-sided heart failure secondary to admitted dietary noncompliance. Diuresing well. Renal function has not changed so I believe this denotes that he remains volume overloaded We will continue to diurese. Potassium levels have stabilized. We will continue with potassium supplementation and current dose of spironolactone. Strict I's and O's and daily weights with the same scale should be maintained. He will be continued on his outpatient doses of Imdur, metoprolol, Crestor and warfarin. Continue to monitor on telemetry. Continue fluid restriction. Admission and Anticipated Discharge Date Admission Date: February 07, 2021 Subjective Patient seen and examined, chart reviewed. States he continues to feel short of breath with activity. Now tolerating fluid restriction better. Denies chest pain or palpitations. Telemetry reviewed: Ventricularly paced rhythm with underlying atrial fibrillation. Review of Systems Review of Systems: All systems reviewed & are unremarkable except as noted in HPI & below Physical Exam Physical Exam: Physical Exam: General: Awake, alert and oriented x 3. No acute distress. Morbidly obese HEENT: Normocephalic, atraumatic. Pupils equal, round and reactive to light and accommodation. Extraocular muscles are intact. Anicteric sclera. Moist mucous membranes. Neck: No JVD. No bruit. Cardiovascular: Regular. But distant unable appreciate murmurs rubs or gallops. Pulmonary: Clear to auscultation bilaterally. No rales, rhonchi, or wheezing. Abdomen: Bowel sounds x 4, soft. No rebound, guarding or tenderness. No organomegaly. Extremities: No clubbing, cyanosis. +2 bilateral lower extremity pitting edema with chronic venous stasis changes. +2 pedal pulses bilaterally. Skin: Warm and dry. Results & Data ([facility]) Vital Signs (Past 12 Hours) Vital Signs Temp Pulse Pulse Resp BP Pulse Ox 07/06/21 11:32 36.8 C 111 H 19 112/78 93 02/09/21 11:14 60 18 96 02/09/21 07:03 36.5 C 66 18 117/76 93 02/09/21 03:22 69 22 98 02/09/21 03:18 36.5 C 73 20 116/77 95 (1) Syncope Syncope type: unspecified Qualified Code(s): R55 - Syncope and collapse
[2021-02-09] MEDS: WARFARIN SOD 5 MG TAB PO SCH (15:20)
[2021-02-09] MEDS: QUEtiapine FUMARATE 200 MG TAB PO PRN (23:14)
[2021-02-10] MEDS: guaiFENesin 200 MG TAB PO SCH ×2 (00:57→08:59)
[2021-02-10] MEDS: POTASSIUM CHLORIDE CRTAB 20 MEQ TABCR PO SCH (05:57)
[2021-02-10 06:24] LABS: INR 2.5 (0.9-1.1); Prothrombin Time 23.5 Seconds (9.0-12.0)
[2021-02-10 06:47] LABS: BUN Creatinine Ratio 16.7 (10-20); Calcium 8.8 mg/dl (8.5-10.1); Creatinine Clr Calc Pharmacy 65.3 ml/min; Est GFR (African American) 49.3 ml/min; Est GFR (Non-African American) 42.6 ml/min; Magnesium 2.7 mg/dl (1.8-2.4); Phosphorus 2.7 mg/dl (2.5-4.9); Potassium 4.2 mmol/L (3.5-5.1)
[2021-02-10] MEDS: FLUTICASONE/VILANTEROL 200/25MCG 14 PUFFS/INHALER INH SCH (08:57)
[2021-02-10] MEDS: SPIRONOLACTONE 25 MG TAB PO SCH (08:57)
[2021-02-10] MEDS: BUMETANIDE 1 MG in SYRINGE 0 ML IV SCH (08:57)
[2021-02-10] MEDS: TOPIRAMATE 25 MG TAB PO SCH (08:57)
[2021-02-10] MEDS: NICOTINE 21 MG/24 HR TDSY TD SCH (08:58)
[2021-02-10] MEDS: FERROUS SULFATE 325 MG TAB PO SCH (08:59)
[2021-02-10] MEDS: GABAPENTIN 600 MG TAB PO SCH (08:59)
[2021-02-10] MEDS: ARIPiprazole 5 MG TAB PO SCH (08:59)
[2021-02-10] MEDS: lamoTRIgine 100 MG TAB PO SCH (08:59)
[2021-02-10] MEDS: ISOSORBIDE MONO EXTENDED REL 30 MG TABCR PO SCH (09:00)
[2021-02-10] MEDS: METOPROLOL SUCC 50MG EXT REL TAB PO SCH (09:00)
[2021-02-10] MEDS: ROSUVASTATIN CALCIUM 20 MG TAB PO SCH (09:00)
[2021-02-10] MEDS: ESCITALOPRAM OXALATE 10 MG TAB PO SCH (09:00)
--- NOTE | 2021-02-10 10:59 | Cardiology Progress Note ---
Date of Service February 10, 2021 Assessment & Plan (1) Right-sided congestive heart failure: (2) CKD (chronic kidney disease) stage 3, GFR 30-59 ml/min: (3) Chronic atrial fibrillation: (4) CAD (coronary artery disease): (5) GERD with apnea: (6) Morbid obesity: (7) Hypokalemia: (8) Syncope: (9) SSS (sick sinus syndrome): (10) Status post placement of cardiac pacemaker: (11) Exertional dyspnea: The patient presents with acute on chronic right-sided heart failure secondary to admitted dietary noncompliance. Has diuresed greater than 10 kg. Clinically improved. Did see mild decrease of renal function today likely signifying intravascular volume depletion Okay to discharge to home from a cardiac standpoint. Recommend DC to home on torsemide 40 mg p.o. twice daily along with potassium supplementation and spironolactone 50 mg p.o. twice daily. Continue to use metolazone as needed. We will ask for nutrition consult to review the need for adherence to low-sodium diet which the patient is admits he has not done in the past. He will be continued on his outpatient doses of Imdur, metoprolol, Crestor and warfarin. My office will call to arrange follow-up with Álvaro in approximately 2 weeks. Admission and Anticipated Discharge Date Admission Date: February 07, 2021 Subjective Patient seen and examined, chart reviewed. States he feels well today and believes that his breathing and edema are back to baseline. Denies chest pain or palpitations. Telemetry reviewed: Paced rhythm with underlying atrial fibrillation. Review of Systems Review of Systems: All systems reviewed & are unremarkable except as noted in HPI & below Physical Exam Physical Exam: Physical Exam: General: Awake, alert and oriented x 3. No acute distress. Morbidly obese HEENT: Normocephalic, atraumatic. Pupils equal, round and reactive to light and accommodation. Extraocular muscles are intact. Anicteric sclera. Moist mucous membranes. Neck: No JVD. No bruit. Cardiovascular: Regular. But distant unable appreciate murmurs rubs or gallops. Pulmonary: Clear to auscultation bilaterally. No rales, rhonchi, or wheezing. Abdomen: Bowel sounds x 4, soft. No rebound, guarding or tenderness. No organomegaly. Extremities: No clubbing, cyanosis. +2 bilateral lower extremity pitting edema with chronic venous stasis changes. +2 pedal pulses bilaterally. Skin: Warm and dry. Results & Data ([facility]) Vital Signs (Past 12 Hours) Vital Signs Temp Pulse Pulse Resp BP Pulse Ox 02/10/21 08:00 69 02/10/21 07:10 36.5 C 67 18 99/63 L 95 02/10/21 03:27 37.0 C 82 18 105/64 92 02/10/21 02:29 69 20 94 02/09/21 23:31 36.6 C 66 18 115/67 93 (1) Syncope Syncope type: unspecified Qualified Code(s): R55 - Syncope and collapse
--- NOTE | 2021-02-10 12:11 | Discharge Summary ---
Date of Service February 10, 2021 Admission HPI Per Admitting Provider History obtained from patient and records. Medical history significant for chronic right-sided heart failure, cor pulmonale, OSCAR on BiPAP, SSS status post PPM on Coumadin, CAD status post CABG, hypertension, hyperlipidemia, CRI (baseline creatinine 1.6), chronic back pain, mood disorder, past tobacco/alcohol abuse as per records. Last confinement February 2020 for syncope secondary to sick sinus syndrome status post PPM. Few days history of shortness of breath worse on exertion without unusual cough symptoms. Transient chest pain. Increase bilateral leg swelling despite diuretic/CPAP compliance. Thinks he may have gained 7 pounds in the last few days. Denies abdominal pain/black/bloody stools. Patient consulted ER for evaluation. Medical History as above Surgical History : CABG, dental surgery, orthopedic procedures Family History : Pancreatitis, leukemia Personal/Social history : Past tobacco/alcohol abuse, disabled Admission Exam Per Admitting Provider GENERAL: Slightly uncomfortable, morbidly obese, no respiratory distress SKIN: Normal color, warm HEENT: [place] palpebral conjunctivae, no ptosis, dry buccal mucosa NECK : Supple, short neck, no tenderness CHEST : Decreased breath sounds, no tenderness HEART : Irregular, no obvious murmurs ABDOMEN: distention, nontender RECTAL : Intact sphincter, brown stool (FOBT negative) EXTREMITIES : Bilateral LE swelling, no LE tenderness, no other conspicuous deformities noted NEUROLOGIC : Coherent, no facial asymmetry, no other gross focality Principal Diagnosis Acute on chronic right-sided heart failure Elevated troponin Discharge Exam Constitutional + well hydrated and + obese; no acute distress Eyes PERRL, conjunctivae normal, anicteric sclerae ENMT external ear and nose normal, oropharynx normal Respiratory normal respiratory effort, lungs clear to auscultation Cardiovascular Rate/Rhythm: + irregularly irregular S1 S2 Gastrointestinal (Abdomen) normal bowel sounds, soft, nontender, no hepatosplenomegaly Musculoskeletal no cyanosis or clubbing, extremities motor strength 5/5 Bilateral leg edema Neurologic PERRL, EOMI, accommodation nl, no face palsy, no dysarthria Psychiatric A+Ox3, euthymic affect Genitourinary no CVA tenderness Discharge Data Allergies Allergy/AdvReac Type Severity Reaction Status Date / Time morphine AdvReac Mild nausea and Verified 02/05/21 01:33 vomiting Consultations 02/05/21 01:07 ED Decision to Admit Stat 02/05/21 04:56 Consult Cardiology Routine Ordered Studies 02/07/21 13:02 CT chest diagnostic wo con Routine There is a left-sided pacemaker. There is prominence of the mediastinal and pericardial fat. This has progressed in the interval. The heart remains mildly enlarged. No pleural or pericardial effusions. Calcified right hilar lymph nodes. No mediastinal hilar lymphadenopathy. Normal esophagus. Normal caliber thoracic aorta. Limited views of the upper abdomen demonstrate a normal liver and adrenal glands. Calcified splenic granulomas are present. There are few partially visualized hypodense lesions within the left kidney. These are incompletely characterized on this noncontrast study. There are poststernotomy changes. No fractures within the visualized osseous structures. No pneumothorax. The central airways are patent. There is a calcified granuloma within the right lower lobe. Small bibasilar linear densities favor subsegmental atelectasis. Otherwise, no focal lung consolidations to suggest pneumonia. There is mild respiratory motion artifact. Mild bibasilar bronchial wall thickening. IMPRESSION: 1. Mediastinal lipomatosis which has progressed. 2. There is also prominence of the pericardial fat. 3. Mild cardiomegaly, unchanged. 4. Bibasilar densities consistent with subsegmental atelectasis. Otherwise, no focal lung consolidations to suggest pneumonia. 4. Mild bibasilar bronchial wall thickening. Hospital Course (1) SOB (shortness of breath): (2) Right-sided congestive heart failure: Present on admission with worsening shortness of breath associated with weight gain CXR showed Persistent cardiomegaly. No acute findings Acute on chronic right heart failure Was managed with iv Bumex 1 mg every 8hrs while inpatient with the [employer] Discharged on torsemide 40mg bid per Cardiology recommendations Patient reports he has all other meds at home Continue spironolactone Continue fluid restriction with 2 L Has lost about 12kg since admission Counselled extensively on dietary management. He reports he has also talked to one of his home RN that will provide more information about this and guide him regarding dietary management Patient to follow up with Cardiology outpatient Elevated troponin Mostly related to acute right heart failure Troponin trended down (0.115-0.102) Echo showed no wall motion abnormality with ejection fraction 55 to 60% Continue metoprolol and statin Chronic A. fib Sick sinus syndrome Single-chamber pacemaker Continue metoprolol succinate 50 mg daily Continue Coumadin with INR 2.[address] chest showed Mediastinal lipomatosis which has progressed. There is also prominence of the pericardial fat. Continue lifestyle modification education H/O CAD S/P CABG Continue statin,aspirin, Isosorbide, metoprolol succinate Hyperlipidemia On Rosuvastatin Obstructive sleep apnea CPAP at bedtime CKD III Avoid Nephrotoxic agents as able Morbid obesity BMI:58.9 Counseling about weight loss provided Depression Continue home medications HTN Continue Lopressor and Imdur Monitor BP Total Time Total Time Spent Total Time Spent (In Minutes): 60 Total Time Includes: Examination of the Patient, Discharge Planning, Medication Reconciliation and Communication With Other Providers Discharge Plan Discharge Items Patient Disposition: Home - Self-Care Reason For Visit: Shortness of breath Discharge Diagnosis: Acute on chronic right-sided heart failure Elevated troponin Activity: Resume your previous activity Non-emergency contact: Primary Care Provider and [employer] Call non-emergency contact if: you have any medication questions and your symptoms worsen Follow-up/Referrals: Jp Morillo MD [Primary Care Provider] - (Date & Time 02/16/2021 10:20 AM Provider Tanja Corea MD [facility] ) Diet: Heart Healthy and Low Sodium (2gm) Fluids: 2000ml (8 cups) Addtl Attending Provider Instructions: Mr Foster. You came to the hospital complaining of shortness of breath. You were evaluated and noted to have acute on chronic right-sided heart failure. We will comanage with the health advisor. We will manage with IV diuretics. Your symptoms improved significantly. You are being discharged. You reported you still have all your medications at home. Your torsemide was changed to 40mg twice a day. Please continue other medications as prescribed. Ensure follow-up with cardiology as discussed. Please follow-up dietary recommendations as discussed. It was a pleasure taking care of you. Pending Studies at Discharge: No Stand-Alone Forms: [employer], Smoking Cessation Medications and DC Order Prescriptions: Continued gabapentin 600 mg Tablet 600 mg PO BID RF: 0 lamotrigine [Lamictal] 200 mg Tablet 200 mg PO BID RF: 0 isosorbide mononitrate 30 mg Tablet Extended Release 24 Hr 30 mg PO QAM RF: 0 topiramate [Topamax] 25 mg Tablet 25 mg PO BID RF: 0 hydroxyzine HCl 50 mg Tablet 50 mg PO BID PRN (Reason: Itching) RF: 0 ferrous sulfate 325 mg (65 mg iron) Tablet 325 mg PO DAILY RF: 0 nitroglycerin [Nitrostat] 0.4 mg Tablet, Sublingual 0.4 mg Sublingual DIRECTED PRN (Reason: Chest Pain) RF: 0 zolpidem [Ambien] 5 mg Tablet 5 mg PO HS PRN (Reason: Sleep) RF: 0 albuterol sulfate [ProAir HFA] 90 mcg/actuation Hfa Aerosol Inhaler 2 puff INHALATION QID PRN (Reason: Shortness Of Breath Or Wheezing) RF: 0 celecoxib [Celebrex] 200 mg capsule 200 mg PO BID RF: 0 fluticasone propion-salmeterol [Advair Diskus] 250-50 mcg/dose Blister With Device 1 inh INHALATION BID RF: 0 albuterol sulfate 2.5 mg /3 mL (0.083 %) Solution For Nebulization 2.5 mg INHALATION Q4 PRN (Reason: Shortness Of Breath Or Wheezing) RF: 0 oxycodone-acetaminophen [Percocet] 5-325 mg tablet 1 tab PO Q6 PRN (Reason: Pain) RF: 0 potassium chloride [Klor-Con M20] 20 mEq tablet,ER particles/crystals 40 meq PO TID RF: 0 escitalopram oxalate [Lexapro] 10 mg tablet 10 mg PO DAILY RF: 0 aripiprazole [Abilify] 5 mg tablet 5 mg PO QAM RF: 0 rosuvastatin [Crestor] 40 mg tablet 40 mg PO DAILY RF: 0 metoprolol succinate 50 mg tablet extended release 24 hr 50 mg PO DAILY RF: 0 spironolactone 50 mg tablet 50 mg PO BID RF: 0 warfarin 5 mg tablet 5 mg PO DAILY RF: 0 metolazone 2.5 mg tablet 2.5 mg PO UD RF: 0 quetiapine [Seroquel] 200 mg tablet 200 mg PO HS PRN (Reason: Sleep) RF: 0 Changed torsemide 20 mg tablet 40 mg PO BID 30 Days Qty: 120 RF: 0 Discharge Orders: Discharge Order (Routine); Ordered 02/10/21 Ordered By: Maryann Montanez Admission Data Admit Date/Time: 02/07/21 10:39 Attending Provider: Maryann Montanez I. Admit Provider: Romaine Ashford Primary Care Provider: pJ Morillo Other Providers: Romaine Ashford ; Peyman Dumont ; Milton Oliver ; Steven Ariza ; Jorge Manzanares ; Avtar Rea ; Álvaro Boggs ; Arlin Shah ; Miryam Correia ; Jessica Washburn ; Hector Davies ; Dante Huynh Other Interventions: Discharge Summary Assessment (RN) Last Done: 02/10/21 12:35
[2021-02-10] MEDS ORDERED: POTASSIUM CHLORIDE CRTAB 20 MEQ TABCR PO SCH (14:00)
[2021-02-10] MEDS ORDERED: TORSEMIDE 10 MG TAB PO SCH (17:00)
== END 2021-02-10 13:52 | disposition home or self-care (01) | DRG 292 ==
LOC: 2S 20:47 → ED 20:47 → 2S 02-05 04:12 → SUATTDRO 02-07 10:39

== ENCOUNTER 2021-03-08 14:26 | Inpatient (IN) ==
[2021-03-08 15:05] LABS: Basophils # (auto) 0.05 K/uL (0-0.2); Basophils % (auto) 0.5 %; Eosinophils # (auto) 0.26 K/uL (0-0.5); Eosinophils % (auto) 2.8 %; Hematocrit (blood only) 39.8 % (42-52); Hemoglobin 12.5 g/dL (14.0-18.0); Immature Granulocytes # (auto) 0.07 K/uL (0.00-0.02); Immature Granulocytes % (auto) 0.8 %; Lymphocytes # (auto) 2.27 K/uL (1.2-3.4); Lymphocytes % (auto) 24.5 %; Mean Corpuscular Hemoglobin 28.1 pg (25-34); Mean Corpuscular Hgb Conc 31.4 g/dL (32-36); Mean Corpuscular Volume 89.4 fL (80-100); Mean Platelet Volume 10.5 fL (7.4-10.4); Monocytes # (auto) 0.75 K/uL (0.11-0.59); Monocytes % (auto) 8.1 %; Neutrophils # (auto) 5.88 K/uL (1.4-6.5); Neutrophils % (auto) 63.3 %; Platelet Count 255 K/uL (130-400); RDW Standard Deviation 56.3 fL (36.4-46.3); Red Blood Count 4.45 M/uL (4.7-6.1); White Blood Count 9.28 K/uL (4.8-10.8)
[2021-03-08 15:57] LABS: Albumin Globulin Ratio 0.8 (0.9-2); Albumin Level 3.2 gm/dl (3.4-5.0); BUN Creatinine Ratio 7.4 (10-20); Bilirubin,Total 0.2 mg/dl (0.2-1); Calcium 8.5 mg/dl (8.5-10.1); Creatinine Clr Calc Pharmacy 72.7 ml/min; Est GFR (African American) 53.9 ml/min; Est GFR (Non-African American) 46.5 ml/min; Globulin 3.8 gm/dl (2.5-4.0); Potassium 4.4 mmol/L (3.5-5.1); Troponin I 0.019 ng/ml (0-0.045)
--- NOTE | 2021-03-08 16:59 | XRay Report ---
XR chest 1V portable HISTORY: 60 years-old Male Chest Pain acute atypical chest pain COMPARISON: Chest radiograph 02/04/2021, chest CT 02/07/2021 TECHNIQUE: Portable AP view of the chest FINDINGS: Cardiomegaly. Left subclavian pacer. Prior median sternotomy. There is no pneumothorax, pleural effus ion or overt pulmonary edema. Mild bibasilar densities. Bones appear grossly intact. IMPRESSION: 1. Cardiomegaly without overt pulmonary edema. 2. Mild bibasilar opacities, likely secondary to summation density and atelectasis. ACT 112: Negative or not required by law. The above report was generated using voice recognition software. It may contain grammatical, syntax o r spelling errors. Electronically signed by: Darell Bland M.D. 03/08/2021 4:57 PM
--- NOTE | 2021-03-08 17:36 | Emergency Department Note ---
Impression & Plan Chest pain, Volume overload, Breath shortness ED Provider Note NAME: SHADE ANDUJAR AGE: 60 SEX: M : 1960 ARRIVES VIA: Walk-In INFORMANT: Patient ED PROVIDER(S): Godfrey Aguilar DO CHIEF COMPLAINT: Chest pain shortness of breath HPI: Patient is a 60-year-old male with a past medical history of CABG, with CHF and CAD hypertension the presents the ER for chest pain and shortness of breath which has been present over the past 3 days. Chest pain and shortness of breath is only present with walking. Denies any belly pain, nausea, vomiting, or diarrhea. No dysuria, urgency, or frequency. No other exacerbating or remitting factors. He believes that he has gained about 30 pounds over the past 2 weeks. Chest pain does not quite feel like his previous ME. Last for several seconds at a time. ROS: See above HPI for pertinent positives & negatives. A total of 10 systems reviewed and were otherwise negative. PAST MEDICAL HISTORY:See Below PAST SURGICAL HISTORY:See Below FAMILY HISTORY:See Below SOCIAL HISTORY:See Below HOME MEDICATIONS:See Below ALLERGIES:See Below VITALS:See Below PHYSICAL EXAMINATION: GENERAL: Sitting up in bed, alert, obese, chronically ill-appearing EYE EXAM: normal conjunctiva. OROPHARYNX: no exudate, no erythema, lips, buccal mucosa, and tongue normal and mucous membranes are moist NECK: supple, no nuchal rigidity, no adenopathy, non-tender LUNGS: Clear to auscultation. Normal chest wall mechanics HEART: no murmurs, S1 normal and S2 normal ABDOMEN: abdomen soft, non-tender, normo-active bowel sounds, no masses, no rebound or guarding. BACK: Back is symmetrical on inspection and there is no deformity, no midline tenderness, no CVA tenderness. SKIN: no rashes and no bruising UPPER EXTREMITIES: upper extremities are grossly normal. LOWER EXTREMITIES: Calves are equal bilateral pitting edema NEURO EXAM: Normal sensorium, cranial nerves II-XII grossly intact, normal speech, no gross weakness of arms, no gross weakness of legs. MEDICAL DECISION MAKING: Patient is a 60-year-old male who presents the ER for chest pain shortness of breath with exertion. He is morbidly obese with a history of CABG. IV was established blood work was obtained. He screened about 20 to 30 pounds over the past 2 weeks. Labs show no significant leukocytosis or anemia. INR was unremarkable. BMP with slightly elevated chloride. Creatinine at 1.6. LFTs bilirubin was unremarkable. Troponin was tactile but not positive. Covid was negative. Chest x-ray with some mild vascular congestion. EKG was not significant change from previous. He was updated bedside discussed with the hospitalist admitted for further work-up. He was completely asymptomatic while in the ER. Triage Nursing notes reviewed. Limited review of prior medical records performed Vital Signs: reviewed and remarkable for HTN and tachypnea Differential diagnosis: Differential diagnoses includes but is not limited to acute coronary syndrome, myocardial infarction, pericarditis, pulmonary embolus, aortic dissection, pneumonia, pneumothorax, musculoskeletal, shingles, esophageal. ER treatment provided: See below Diagnostics interpreted by me: ECG: Atrial sensed ventricular paced rate 87 with intermittent A. fib, inferior Q waves, left bundle No significant change from previous Cardiac Monitoring: An order was placed for continuous cardiac monitoring. The monitor shows a rate of 92 with A. fib and paced rhythm. Laboratory studies: As stated above and show below. Imaging studies: See below Consultation(s): Discussed with hospitalist for further evaluation Procedures: none Critical Care: None Past Med/Surg History Medical History (Updated 03/08/21 @ 23:34 by Godfrey Aguilar DO) CAD (coronary artery disease) CAD (coronary artery disease) Chronic atrial fibrillation Chronic back pain CKD (chronic kidney disease) stage 3, GFR 30-59 ml/min Cor pulmonale Depression HTN (hypertension) Hyperlipidemia Hypertension Obesities, morbid OSCAR (obstructive sleep apnea) Volume overload Surgical History S/P CABG x 4 Social History Smoking Status: Never smoker Second Hand Exposure: Yes; Hx Alcohol Use: No Hx Substance Use: Yes Last Used Substance: Unknown Last Used Substance Other:: this morning Substance Use Type Other:: Patient states uses medical/ pharmaceutical marijuana Preferred Language: Amharic Communication Ability: Effective Hearing Ability: Normal 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 Beliefs That Will Affect Care: None marital status: Single Current Living Situation: Alone Current Living Situation Comment: fist floor appartment Feels Safe at Home: Yes Assistive Devices: CPAP, Denture - Upper and Denture - Lower Allergies Allergies Allergy/AdvReac Type Severity Reaction Status Date / Time morphine AdvReac Mild nausea and Verified 03/08/21 18:11 vomiting Home Meds Home Medications Medication Instructions Recorded Confirmed albuterol sulfate 90 mcg/actuation 2 puff INHALATION QID PRN 05/04/18 03/08/21 aerosol inhaler (ProAir HFA) ferrous sulfate 325 mg (65 mg 325 mg PO DAILY 05/04/18 03/08/21 iron) tablet gabapentin 600 mg tablet 600 mg PO BID 05/04/18 03/08/21 hydroxyzine HCl 50 mg tablet 50 mg PO BID PRN 05/04/18 03/08/21 isosorbide mononitrate 30 mg 30 mg PO QAM 05/04/18 03/08/21 tablet,extended release 24 hr lamotrigine 200 mg tablet 200 mg PO BID 05/04/18 03/08/21 (Lamictal) nitroglycerin 0.4 mg sublingual 0.4 mg SUBLINGUAL DIRECTED PRN 05/04/18 03/08/21 tablet (Nitrostat) topiramate 25 mg tablet (Topamax) 25 mg PO BID 05/04/18 03/08/21 zolpidem 5 mg tablet (Ambien) 5 mg PO HS PRN 05/04/18 03/08/21 albuterol sulfate 2.5 mg INHALATION Q4 PRN 03/03/20 03/08/21 aripiprazole 5 mg tablet (Abilify) 5 mg PO QAM 03/03/20 03/08/21 celecoxib 200 mg capsule (Celebrex) 200 mg PO BID 03/03/20 03/08/21 escitalopram oxalate 10 mg tablet 10 mg PO DAILY 03/03/20 03/08/21 (Lexapro) fluticasone 250 mcg-salmeterol 50 1 inh INHALATION BID 03/03/20 03/08/21 mcg/dose blistr powdr for inhalation (Advair Diskus) oxycodone-acetaminophen 5 mg-325 1 tab PO Q6 PRN 03/03/20 03/08/21 mg tablet (Percocet) potassium chloride 20 mEq 40 meq PO TID 03/03/20 03/08/21 tablet,extended release(part/cryst) (Klor-Con M) rosuvastatin 40 mg tablet (Crestor) 40 mg PO DAILY 03/03/20 03/08/21 metolazone 2.5 mg tablet 2.5 mg PO DAILY 02/05/21 03/08/21 metoprolol succinate 50 mg 50 mg PO DAILY 02/05/21 03/08/21 tablet,extended release 24 hr quetiapine 200 mg tablet (Seroquel) 200 mg PO HS PRN 02/05/21 03/08/21 spironolactone 50 mg tablet 50 mg PO BID 02/05/21 03/08/21 warfarin 5 mg tablet 5 mg PO QPM 02/05/21 03/08/21 Previous Rx's Medication Instructions Recorded torsemide 20 mg tablet 40 mg PO BID 30 Days #120 tab 02/10/21 Results & Data (ED) Vital Signs Vital Signs - 24 hr 03/08/21 14:28 03/08/21 17:08 03/08/21 18:58 Temperature 36.6 C Temperature Source Temporal Artery Scan Pulse Rate 95 H 77 65 Pulse Rate from SpO2 Sensor 76 64 Pulse Rhythm Regular Pulse Strength Normal Respiratory Rate 26 H 16 18 Respiratory Effort / Characteristics Non-Labored Respiratory Depth Normal Respiratory Pattern Regular Blood Pressure 152/83 H 151/85 H 110/63 Blood Pressure Mean 106 107 78 Blood Pressure Position Sitting Pulse Oximetry 95 96 96 Sepsis Recent Fever Within 48 Hours No Sepsis New/Unexplained Change in Mental Status N/A Sepsis Action Taken by Nursing No Action Required 03/08/21 19:03 03/08/21 19:10 03/08/21 19:20 Temperature Temperature Source Pulse Rate 77 66 67 Pulse Rate from SpO2 Sensor 68 66 64 Pulse Rhythm Pulse Strength Respiratory Rate 20 14 17 Respiratory Effort / Characteristics Respiratory Depth Respiratory Pattern Blood Pressure Blood Pressure Mean Blood Pressure Position Pulse Oximetry 94 96 96 Sepsis Recent Fever Within 48 Hours Sepsis New/Unexplained Change in Mental Status Sepsis Action Taken by Nursing 03/08/21 19:30 03/08/21 20:00 03/08/21 20:32 Temperature Temperature Source Pulse Rate 69 85 Pulse Rate from SpO2 Sensor 72 Pulse Rhythm Pulse Strength Respiratory Rate 21 17 21 Respiratory Effort / Characteristics Respiratory Depth Respiratory Pattern Blood Pressure 115/75 101/78 Blood Pressure Mean 88 85 Blood Pressure Position Pulse Oximetry 97 Sepsis Recent Fever Within 48 Hours Sepsis New/Unexplained Change in Mental Status Sepsis Action Taken by Nursing 03/08/21 20:40 Temperature Temperature Source Pulse Rate 63 Pulse Rate from SpO2 Sensor Pulse Rhythm Pulse Strength Respiratory Rate 18 Respiratory Effort / Characteristics Respiratory Depth Respiratory Pattern Blood Pressure Blood Pressure Mean Blood Pressure Position Pulse Oximetry Sepsis Recent Fever Within 48 Hours Sepsis New/Unexplained Change in Mental Status Sepsis Action Taken by Nursing Laboratory Data Result diagrams: 03/08/21 14:51 03/08/21 14:51 Lab Results 03/08/21 03/08/21 03/08/21 Range/Units 14:51 14:51 14:51 WBC 9.28 (4.8-10.8) K/uL RBC 4.45 L (4.7-6.1) M/uL Hgb 12.5 L (14.0-18.0) g/dL Hct 39.8 L (42-52) % MCV 89.4 (80-100) fL MCH 28.1 (25-34) pg MCHC 31.4 L (32-36) g/dL RDW Std Deviation 56.3 H (36.4-46.3) fL RDW Coeff of Karlene 17.0 H (11.5-14.5) % Plt Count 255 (130-400) K/uL MPV 10.5 H (7.4-10.4) fL Immature Gran % (Auto) 0.8 % Neut % (Auto) 63.3 % Lymph % (Auto) 24.5 % [place] % (Auto) 8.1 % Eos % (Auto) 2.8 % Baso % (Auto) 0.5 % Neut # (Auto) 5.88 (1.4-6.5) K/uL Lymph # (Auto) 2.27 (1.2-3.4) K/uL [place] # (Auto) 0.75 H (0.11-0.59) K/uL Eos # (Auto) 0.26 (0-0.5) K/uL Baso # (Auto) 0.05 (0-0.2) K/uL Immature Gran # (Auto) 0.07 H (0.00-0.02) K/uL PT (9.0-12.0) Seconds INR (0.9-1.1) APTT (21.0-31.0) Seconds PTT Ratio Sodium 139 (136-145) mmol/L Potassium 4.4 (3.5-5.1) mmol/L Chloride 108 H (98-107) mmol/L Carbon Dioxide 26 (21-32) mmol/L Anion Gap 5.0 (3-11) BUN 12 (7-18) mg/dl Creatinine 1.60 H (0.6-1.4) mg/dl Est Cr Clr Drug Dosing 72.7 ml/min Est GFR ( Amer) 53.9 ml/min Est GFR (Non-Af Amer) 46.5 ml/min BUN/Creatinine Ratio 7.4 L (10-20) Glucose 117 H (70-99) mg/dl Calcium 8.5 (8.5-10.1) mg/dl Magnesium 2.4 (1.8-2.4) mg/dl Total Bilirubin 0.2 (0.2-1) mg/dl AST 42 H (15-37) U/L ALT 59 (12-78) U/L Alkaline Phosphatase 203 H (45-117) U/L Troponin I 0.019 (0-0.045) ng/ml Total Protein 7.0 (6.4-8.2) gm/dl Albumin 3.2 L (3.4-5.0) gm/dl Globulin 3.8 (2.5-4.0) gm/dl Albumin/Globulin Ratio 0.8 L (0.9-2) Specimen Hemolysis COVID-19 Eval Order SARS-CoV-2 (PCR) (Negative) 03/08/21 03/08/21 03/08/21 Range/Units 17:33 18:56 18:56 WBC (4.8-10.8) K/uL RBC (4.7-6.1) M/uL Hgb (14.0-18.0) g/dL Hct (42-52) % MCV (80-100) fL MCH (25-34) pg MCHC (32-36) g/dL RDW Std Deviation (36.4-46.3) fL RDW Coeff of Karlene (11.5-14.5) % Plt Count (130-400) K/uL MPV (7.4-10.4) fL Immature Gran % (Auto) % Neut % (Auto) % Lymph % (Auto) % [place] % (Auto) % Eos % (Auto) % Baso % (Auto) % Neut # (Auto) (1.4-6.5) K/uL Lymph # (Auto) (1.2-3.4) K/uL [place] # (Auto) (0.11-0.59) K/uL Eos # (Auto) (0-0.5) K/uL Baso # (Auto) (0-0.2) K/uL Immature Gran # (Auto) (0.00-0.02) K/uL PT 11.4 (9.0-12.0) Seconds INR 1.1 (0.9-1.1) APTT 30.9 (21.0-31.0) Seconds PTT Ratio 1.2 Sodium (136-145) mmol/L Potassium (3.5-5.1) mmol/L Chloride (98-107) mmol/L Carbon Dioxide (21-32) mmol/L Anion Gap (3-11) BUN (7-18) mg/dl Creatinine (0.6-1.4) mg/dl Est Cr Clr Drug Dosing ml/min Est GFR ( Amer) ml/min Est GFR (Non-Af Amer) ml/min BUN/Creatinine Ratio (10-20) Glucose (70-99) mg/dl Calcium (8.5-10.1) mg/dl Magnesium (1.8-2.4) mg/dl Total Bilirubin (0.2-1) mg/dl AST (15-37) U/L ALT (12-78) U/L Alkaline Phosphatase (45-117) U/L Troponin I (0-0.045) ng/ml Total Protein (6.4-8.2) gm/dl Albumin (3.4-5.0) gm/dl Globulin (2.5-4.0) gm/dl Albumin/Globulin Ratio (0.9-2) Specimen Hemolysis COVID-19 Eval Order Covid19 at [facility] SARS-CoV-2 (PCR) NEGATIVE (Negative) Administered Medications Heparin Sodium/Dextrose (Heparin Sodium/Dextrose) 25,000 units in 500 mls @ 37 mls/hr IV .[id number] [facility]; Protocol Stop: 04/07/21 19:59 Last Admin: 03/08/21 21:17 Dose: 1,850 units/hr, 37 mls/hr Documented by: [id number] Cosigned by: [id number] Discontinued Medications Furosemide (Furosemide 40 Mg/4 Ml Vial) 60 mg IV NOW STA Stop: 03/08/21 19:16 Last Admin: 03/08/21 19:34 Dose: 60 mg Documented by: [id number] Furosemide (Furosemide 40 Mg/4 Ml Vial) 60 mg IV NOW STA Stop: 03/08/21 20:34 Last Admin: 03/08/21 21:43 Dose: 60 mg Documented by: [id number] Albumin Human (Albumin 25%) 12.5 gm in 50 mls @ 50 mls/hr IV ONE ONE Stop: 03/08/21 20:14 Last Infusion: 03/08/21 23:10 Dose: 0 mls/hr Documented by: [id number] Admin: 03/08/21 19:33 Dose: 50 mls/hr Documented by: [id number] Albumin Human (Albumin 25%) 12.5 gm in 50 mls @ 50 mls/hr IV ONE ONE Stop: 03/08/21 21:11 Last Infusion: 03/08/21 21:38 Dose: 50 mls/hr Documented by: [id number] Admin: 03/08/21 20:38 Dose: 50 mls/hr Documented by: [id number] Oxycodone/Acetaminophen (Oxycodone/Acetaminophen 5mg/325mg Tab) 1 tab PO NOW STA Stop: 03/08/21 20:14 Last Admin: 03/08/21 20:38 Dose: 1 tab Documented by: [id number] Imaging Data Radiologist's Impression: Chest X-Ray 03/08/21 14:40 XR chest 1V portable HISTORY: 60 years-old Male Chest Pain acute atypical chest pain COMPARISON: Chest radiograph 02/04/2021, chest CT 02/07/2021 TECHNIQUE: Portable AP view of the chest FINDINGS: Cardiomegaly. Left subclavian pacer. Prior median sternotomy. There is no pneumothorax, pleural effusion or overt pulmonary edema. Mild bibasilar densities. Bones appear grossly intact. IMPRESSION: 1. Cardiomegaly without overt pulmonary edema. 2. Mild bibasilar opacities, likely secondary to summation density and atelectasis. ACT 112: Negative or not required by law. The above report was generated using voice recognition software. It may contain grammatical, syntax or spelling errors. Electronically signed by: Darell Bland M.D. 03/08/2021 4:57 PM Discharge Plan Visit Data Chief Complaint: Chest Pain Stated Complaint: CHEST PAIN, SOB ED Provider: Godfrey Aguilar Discharge Problem: Chest pain, Volume overload, Breath shortness Discharge Instructions Interventions: ED Discharge Assessment Last Done: 03/08/21 22:04 Discharge Problem: Chest pain Qualifiers: Chest pain type: unspecified Qualified Code(s): R07.9 - Chest pain, unspecified Volume overload Qualifiers: Hypervolemia type: unspecified Qualified Code(s): E87.70 - Fluid overload, unspecified
[2021-03-08 17:59] LABS: INR 1.1 (0.9-1.1); Partial Thromboplastin Ratio 1.2; Partial Thromboplastin Time 30.9 Seconds (21.0-31.0); Prothrombin Time 11.4 Seconds (9.0-12.0)
[2021-03-08] MEDS ORDERED: ALBUMIN 25% 12.5 GM/50 ML VIAL IV ONE ×2 (19:15→20:12)
[2021-03-08] MEDS ORDERED: FUROSEMIDE 40 MG/4 ML VIAL IV STA ×2 (19:15→20:33)
[2021-03-08] MEDS ORDERED: Heparin IV Adult Wt-Based Standard *NO* Bolus Protocol IV SCH (19:36)
--- NOTE | 2021-03-08 19:37 | History & Physical Report ---
Date of Service March 08, 2021 Assessment & Plan (1) Right-sided congestive heart failure: Plan: With fluid retention hx right-sided heart failure/cor pulmonale/OSCAR on BiPAP Secondary to dietary indiscretion Home NSAID contributory Exertional chest pain possibly anginal from fluid retention hx CAD sp CABG SSS status post PPM on Coumadin, A. fib with paced complexes, INR subtherapeutic hypertension, stable hyperlipidemia, on statin Rx CRI, creatinine at baseline chronic back pain Mood disorder, stable past tobacco/alcohol abuse as per records Chronic anemia, hemoglobin at baseline PCU Lasix albumin now Defer subsequent diuretic dosing to Cardiology for CHF Strict I/Os, daily weights, CHF education, fluid restriction Hold Celebrex Patient counseled about fluid retention and NSAID use. DVT prophylaxis. IV Heparin-Coumadin bridge therapy given very subtherapeutic level, INR goal between 2 and 3 Full code Text document was generated using Aionex voice recognition software. It may contain grammatical or spelling errors. Kindly contact undersigned for clarification of any documentation item in question. History of Present Illness Chief Complaint: Fluid retention, chest pain Primary Care Provider: Jp Morillo MD History obtained from patient and records. Medical history significant for chronic right-sided heart failure (EF 55- 60%, TTE 2020 55), cor pulmonale, OSCAR on BiPAP, SSS status post PPM on Coumadin, CAD status post CABG, hypertension, hyperlipidemia, COPD as per records, CRI (baseline creatinine 1.6), chronic back pain, mood disorder, chronic anemia (baseline hemoglobin of 12), past tobacco/alcohol abuse as per records. Last confinement last month for right-sided heart failure. Patient discharged on Torsemide regimen. Patient noted 20 pound weight gain in the last few weeks along with an episode of left-sided chest pain with shortness of breath nonradiating yesterday. No cough symptoms. Admits to dietary indiscretion and not following fluid restriction of 50 ounces a day. Compliant with home medications. Patient seen at [facility] outpatient last week. Provider restarted metolazone Rx every 10 days. Patient strongly urged to comply with fluid restriction and to comply with CPAP. Medical History as above Surgical History : CABG, dental surgery, orthopedic procedures Family History : Pancreatitis, leukemia Personal/Social history : Past tobacco/alcohol abuse, disabled Allergies Allergy/AdvReac Type Severity Reaction Status Date / Time morphine AdvReac Mild nausea and Verified 03/08/21 18:11 vomiting Home Medications Medication Instructions Recorded Confirmed Type albuterol sulfate 90 mcg/actuation 2 puff INHALATION QID PRN 05/04/18 03/08/21 History aerosol inhaler (ProAir HFA) ferrous sulfate 325 mg (65 mg 325 mg PO DAILY 05/04/18 03/08/21 History iron) tablet gabapentin 600 mg tablet 600 mg PO BID 05/04/18 03/08/21 History hydroxyzine HCl 50 mg tablet 50 mg PO BID PRN 05/04/18 03/08/21 History isosorbide mononitrate 30 mg 30 mg PO QAM 05/04/18 03/08/21 History tablet,extended release 24 hr lamotrigine 200 mg tablet 200 mg PO BID 05/04/18 03/08/21 History (Lamictal) nitroglycerin 0.4 mg sublingual 0.4 mg SUBLINGUAL DIRECTED PRN 05/04/18 03/08/21 History tablet (Nitrostat) topiramate 25 mg tablet (Topamax) 25 mg PO BID 05/04/18 03/08/21 History zolpidem 5 mg tablet (Ambien) 5 mg PO HS PRN 05/04/18 03/08/21 History albuterol sulfate 2.5 mg INHALATION Q4 PRN 03/03/20 03/08/21 History aripiprazole 5 mg tablet (Abilify) 5 mg PO QAM 03/03/20 03/08/21 History celecoxib 200 mg capsule (Celebrex) 200 mg PO BID 03/03/20 03/08/21 History escitalopram oxalate 10 mg tablet 10 mg PO DAILY 03/03/20 03/08/21 History (Lexapro) fluticasone 250 mcg-salmeterol 50 1 inh INHALATION BID 03/03/20 03/08/21 History mcg/dose blistr powdr for inhalation (Advair Diskus) oxycodone-acetaminophen 5 mg-325 1 tab PO Q6 PRN 03/03/20 03/08/21 History mg tablet (Percocet) potassium chloride 20 mEq 40 meq PO TID 03/03/20 03/08/21 History tablet,extended release(part/cryst) (Klor-Con M) rosuvastatin 40 mg tablet (Crestor) 40 mg PO DAILY 03/03/20 03/08/21 History metolazone 2.5 mg tablet 2.5 mg PO DAILY 02/05/21 03/08/21 History metoprolol succinate 50 mg 50 mg PO DAILY 02/05/21 03/08/21 History tablet,extended release 24 hr quetiapine 200 mg tablet (Seroquel) 200 mg PO HS PRN 02/05/21 03/08/21 History spironolactone 50 mg tablet 50 mg PO BID 02/05/21 03/08/21 History warfarin 5 mg tablet 5 mg PO QPM 02/05/21 03/08/21 History torsemide 20 mg tablet 40 mg PO BID 30 Days #120 tab 02/10/21 03/08/21 Rx Past Med/Surg History Medical History (Updated 03/09/21 @ 10:43 by Peyman Dumont DO) CAD (coronary artery disease) CAD (coronary artery disease) Chronic atrial fibrillation Chronic back pain CKD (chronic kidney disease) stage 3, GFR 30-59 ml/min Cor pulmonale Depression HTN (hypertension) Hyperlipidemia Hypertension Obesities, morbid OSCAR (obstructive sleep apnea) Volume overload Surgical History S/P CABG x 4 Social History Smoking Status: Never smoker Second Hand Exposure: Yes; Hx Alcohol Use: No Hx Substance Use: No Preferred Language: Maltese Communication Ability: Effective Hearing Ability: Normal Distribution Systems Superintendent Required: No Beliefs That Will Affect Care: None marital status: Single Current Living Situation: Alone Current Living Situation Comment: fist floor appartment Feels Safe at Home: Yes Safety Concerns: Feels Safe At This Time Assistive Devices: None Review of Systems Review of Systems: As per HPI, all 10 systems reviewed, all other ROS negative Physical Exam Physical Exam: GENERAL: Slightly uncomfortable, morbidly obese, no respiratory distress SKIN: Pallor, warm HEENT: Pale palpebral conjunctivae, no ptosis, dry buccal mucosa NECK : Supple, short neck, no tenderness CHEST : Decreased breath sounds, no tenderness HEART : Irregular, no obvious murmurs ABDOMEN: distention, nontender EXTREMITIES : Bilateral LE swelling, no LE tenderness, no other conspicuous deformities noted NEUROLOGIC : Coherent, no facial asymmetry, no other gross focality Results & Data Results & Data ([facility]) Vital Signs (Past 12 Hours) Vital Signs Temp Pulse Resp BP Pulse Ox 03/08/21 14:28 36.6 C 95 H 26 H 152/83 H 95 Laboratory Results Laboratory Results WBC 9.28 K/uL (4.8-10.8) 03/08/21 14:51 RBC 4.45 M/uL (4.7-6.1) L 03/08/21 14:51 Hgb 12.5 g/dL (14.0-18.0) L 03/08/21 14:51 Hct 39.8 % (42-52) L 03/08/21 14:51 MCV 89.4 fL (80-100) 03/08/21 14:51 MCH 28.1 pg (25-34) 03/08/21 14:51 MCHC 31.4 g/dL (32-36) L 03/08/21 14:51 RDW Std Deviation 56.3 fL (36.4-46.3) H 03/08/21 14:51 RDW Coeff of Karlene 17.0 % (11.5-14.5) H 03/08/21 14:51 Plt Count 255 K/uL (130-400) 03/08/21 14:51 MPV 10.5 fL (7.4-10.4) H 03/08/21 14:51 Immature Gran % (Auto) 0.8 % 03/08/21 14:51 Neut % (Auto) 63.3 % 03/08/21 14:51 Lymph % (Auto) 24.5 % 03/08/21 14:51 [place] % (Auto) 8.1 % 03/08/21 14:51 Eos % (Auto) 2.8 % 03/08/21 14:51 Baso % (Auto) 0.5 % 03/08/21 14:51 Neut # (Auto) 5.88 K/uL (1.4-6.5) 03/08/21 14:51 Lymph # (Auto) 2.27 K/uL (1.2-3.4) 03/08/21 14:51 [place] # (Auto) 0.75 K/uL (0.11-0.59) H 03/08/21 14:51 Eos # (Auto) 0.26 K/uL (0-0.5) 03/08/21 14:51 Baso # (Auto) 0.05 K/uL (0-0.2) 03/08/21 14:51 Immature Gran # (Auto) 0.07 K/uL (0.00-0.02) H 03/08/21 14:51 PT 11.4 Seconds (9.0-12.0) 03/08/21 17:33 INR 1.1 (0.9-1.1) 03/08/21 17:33 APTT 30.9 Seconds (21.0-31.0) 03/08/21 17:33 PTT Ratio 1.2 03/08/21 17:33 Sodium 139 mmol/L (136-145) 03/08/21 14:51 Potassium 4.4 mmol/L (3.5-5.1) 03/08/21 14:51 Chloride 108 mmol/L (98-107) H 03/08/21 14:51 Carbon Dioxide 26 mmol/L (21-32) 03/08/21 14:51 Anion Gap 5.0 (3-11) 03/08/21 14:51 BUN 12 mg/dl (7-18) 03/08/21 14:51 Creatinine 1.60 mg/dl (0.6-1.4) H 03/08/21 14:51 Est Cr Clr Drug Dosing 72.7 ml/min 03/08/21 14:51 Est GFR ( Amer) 53.9 ml/min 03/08/21 14:51 Est GFR (Non-Af Amer) 46.5 ml/min 03/08/21 14:51 BUN/Creatinine Ratio 7.4 (10-20) L 03/08/21 14:51 Glucose 117 mg/dl (70-99) H 03/08/21 14:51 Calcium 8.5 mg/dl (8.5-10.1) 03/08/21 14:51 Total Bilirubin 0.2 mg/dl (0.2-1) 03/08/21 14:51 AST 42 U/L (15-37) H 03/08/21 14:51 ALT 59 U/L (12-78) 03/08/21 14:51 Alkaline Phosphatase 203 U/L (45-117) H 03/08/21 14:51 Troponin I 0.019 ng/ml (0-0.045) 03/08/21 14:51 Total Protein 7.0 gm/dl (6.4-8.2) 03/08/21 14:51 Albumin 3.2 gm/dl (3.4-5.0) L 03/08/21 14:51 Globulin 3.8 gm/dl (2.5-4.0) 03/08/21 14:51 Albumin/Globulin Ratio 0.8 (0.9-2) L 03/08/21 14:51 Specimen Hemolysis 03/08/21 14:51 COVID-19 Eval Order Covid19 at [facility] 03/08/21 18:56 Impressions Chest X-Ray 03/08/21 14:40 XR chest 1V portable HISTORY: 60 years-old Male Chest Pain acute atypical chest pain COMPARISON: Chest radiograph 02/04/2021, chest CT 02/07/2021 TECHNIQUE: Portable AP view of the chest FINDINGS: Cardiomegaly. Left subclavian pacer. Prior median sternotomy. There is no pneumothorax, pleural effusion or overt pulmonary edema. Mild bibasilar densities. Bones appear grossly intact. IMPRESSION: 1. Cardiomegaly without overt pulmonary edema. 2. Mild bibasilar opacities, likely secondary to summation density and atelectasis. ACT 112: Negative or not required by law. The above report was generated using voice recognition software. It may contain grammatical, syntax or spelling errors. Electronically signed by: Darell Bland M.D. 03/08/2021 4:57 PM Diagnostic Findings EKG as per my interpretation rate 85, A. fib, with paced complexes
[2021-03-08] MEDS ORDERED: oxyCODONE/ACETAMINOPHEN 5mg/325mg TAB PO STA (20:13)
[2021-03-08] MEDS: HEPARIN SODIUM/DEXTROSE 25,000 UNITS/500 ML BAG IV SCH (21:17)
[2021-03-08] MEDS ORDERED: ACETAMINOPHEN 325 MG TAB PO PRN (23:29)
[2021-03-08] MEDS ORDERED: oxyCODONE/ACETAMINOPHEN 5mg/325mg TAB PO PRN ×2 (23:29)
[2021-03-08] MEDS ORDERED: XOPENEX/ATROVENT 1.25mg/0.5MG NEB COMBO NEB PRN (23:29)
[2021-03-08] MEDS ORDERED: NITROGLYCERIN SL 0.4 MG/TAB TAB SL PRN ×2 (23:29)
[2021-03-09] MEDS ORDERED: WARFARIN SOD 10 MG TAB PO ONE
[2021-03-09] MEDS: GABAPENTIN 600 MG TAB PO SCH ×3 (00:20→20:53)
[2021-03-09] MEDS: SPIRONOLACTONE 25 MG TAB PO SCH ×3 (00:21→15:59)
[2021-03-09] MEDS: lamoTRIgine 100 MG TAB PO SCH ×3 (00:21→20:52)
[2021-03-09] MEDS: TOPIRAMATE 25 MG TAB PO SCH ×3 (00:21→15:59)
[2021-03-09] MEDS: POTASSIUM CHLORIDE CRTAB 20 MEQ TABCR PO SCH ×3 (00:21→20:54)
[2021-03-09] MEDS: IPRATROPIUM BROMIDE NEB SOLN 0.02% 2.5 ML VIAL INH PRN ×2 (00:47→10:29)
[2021-03-09] MEDS: LEVALBUTEROL 1.25MG/0.5ML NEB INH PRN ×2 (00:47→10:29)
[2021-03-09] MEDS: QUEtiapine FUMARATE 200 MG TAB PO PRN (00:58)
[2021-03-09 03:02] LABS: Basophils # (auto) 0.05 K/uL (0-0.2); Basophils % (auto) 0.5 %; Eosinophils # (auto) 0.25 K/uL (0-0.5); Eosinophils % (auto) 2.5 %; Hematocrit (blood only) 37.2 % (42-52); Hemoglobin 11.9 g/dL (14.0-18.0); Immature Granulocytes # (auto) 0.07 K/uL (0.00-0.02); Immature Granulocytes % (auto) 0.7 %; Lymphocytes % (auto) 30.3 %; Mean Corpuscular Hemoglobin 28.5 pg (25-34); Mean Platelet Volume 10.3 fL (7.4-10.4); Monocytes # (auto) 0.95 K/uL (0.11-0.59); Monocytes % (auto) 9.6 %; Neutrophils # (auto) 5.57 K/uL (1.4-6.5); Neutrophils % (auto) 56.4 %; Platelet Count 230 K/uL (130-400); RDW Standard Deviation 55.7 fL (36.4-46.3); Red Blood Count 4.18 M/uL (4.7-6.1); White Blood Count 9.89 K/uL (4.8-10.8)
[2021-03-09 03:30] LABS: INR 1.1 (0.9-1.1); Prothrombin Time 11.3 Seconds (9.0-12.0)
[2021-03-09 03:37] LABS: Partial Thromboplastin Time 53.5 Seconds (21.0-31.0)
[2021-03-09 03:42] LABS: BUN Creatinine Ratio 8.5 (10-20); Calcium 8.2 mg/dl (8.5-10.1); Creatinine Clr Calc Pharmacy 77.1 ml/min; Est GFR (African American) 57.8 ml/min; Est GFR (Non-African American) 49.8 ml/min
[2021-03-09] MEDS: oxyCODONE HCL IR 5 MG TAB (IMMEDIATE RELEASE) PO PRN ×2 (07:39→19:41)
--- NOTE | 2021-03-09 08:14 | Cardiology Consultation ---
Date of Consultation March 09, 2021 Assessment & Plan (1) Volume overload: recurrent (2) Right-sided congestive heart failure: recurrent (3) CKD (chronic kidney disease) stage 3, GFR 30-59 ml/min: (4) Lower extremity edema: (5) Obesities, morbid: (6) Cor pulmonale: (7) CAD (coronary artery disease): (8) HTN (hypertension): (9) Chronic atrial fibrillation: (10) SSS (sick sinus syndrome): (11) Status post placement of cardiac pacemaker: (12) Dietary noncompliance: recurrent, second admission within 1 month (13) Nonadherence to medication: patient presents with recurrent on him overload due to recurrent dietary noncompliance and likely medication noncompliance as well. Once again the pathophysiology and treatment were reviewed with the patient Once again, patient counseled great lengths on the need for adherence to abdomen as well as fluid and sodium intake restriction. Patient states that he understands but done able to comply Continue to diurese with ankle regimen it was successful on last admission Strict I/O's Fluid restriction Daily weights Heparin drip as a bridge with a goal INR of 2 to 3. History of Present Illness Reason for Consultation: acute on chronic right heart failure Requesting Physician: Dr. Swift Attending Physician: Dante Huynh MD History of Present Illness patient is a 60-year-old male was only recently discharged from [facility] within the last month for acute on chronic right-sided heart failure due to non adherence to fluid restriction and low-salt diet. Now presents again with 20 lb weight gain over 3 days. Patient states he has not been following a low-sodium diet, including potato chips, pickles, lunch meat and frozen dinners. He has also been drinking several bottles of Mountain Dew a day. States he has been compliant with medications, however, INR of 1 upon presentation. States he felt himself filling up with fluid developed chest c ongestion similar to previous presentation and presented to the ED on 03/08/21. Allergies Allergy/AdvReac Type Severity Reaction Status Date / Time morphine AdvReac Mild nausea and Verified 03/08/21 18:11 vomiting Home Medications Medication Instructions Recorded Confirmed Type albuterol sulfate 90 mcg/actuation 2 puff INHALATION QID PRN 05/04/18 03/08/21 History aerosol inhaler (ProAir HFA) ferrous sulfate 325 mg (65 mg 325 mg PO DAILY 05/04/18 03/08/21 History iron) tablet gabapentin 600 mg tablet 600 mg PO BID 05/04/18 03/08/21 History hydroxyzine HCl 50 mg tablet 50 mg PO BID PRN 05/04/18 03/08/21 History isosorbide mononitrate 30 mg 30 mg PO QAM 05/04/18 03/08/21 History tablet,extended release 24 hr lamotrigine 200 mg tablet 200 mg PO BID 05/04/18 03/08/21 History (Lamictal) nitroglycerin 0.4 mg sublingual 0.4 mg SUBLINGUAL DIRECTED PRN 05/04/18 03/08/21 History tablet (Nitrostat) topiramate 25 mg tablet (Topamax) 25 mg PO BID 05/04/18 03/08/21 History zolpidem 5 mg tablet (Ambien) 5 mg PO HS PRN 05/04/18 03/08/21 History albuterol sulfate 2.5 mg INHALATION Q4 PRN 03/03/20 03/08/21 History aripiprazole 5 mg tablet (Abilify) 5 mg PO QAM 03/03/20 03/08/21 History celecoxib 200 mg capsule (Celebrex) 200 mg PO BID 03/03/20 03/08/21 History escitalopram oxalate 10 mg tablet 10 mg PO DAILY 03/03/20 03/08/21 History (Lexapro) fluticasone 250 mcg-salmeterol 50 1 inh INHALATION BID 03/03/20 03/08/21 History mcg/dose blistr powdr for inhalation (Advair Diskus) oxycodone-acetaminophen 5 mg-325 1 tab PO Q6 PRN 03/03/20 03/08/21 History mg tablet (Percocet) potassium chloride 20 mEq 40 meq PO TID 03/03/20 03/08/21 History tablet,extended release(part/cryst) (Klor-Con M) rosuvastatin 40 mg tablet (Crestor) 40 mg PO DAILY 03/03/20 03/08/21 History metolazone 2.5 mg tablet 2.5 mg PO DAILY 02/05/21 03/08/21 History metoprolol succinate 50 mg 50 mg PO DAILY 02/05/21 03/08/21 History tablet,extended release 24 hr quetiapine 200 mg tablet (Seroquel) 200 mg PO HS PRN 02/05/21 03/08/21 History spironolactone 50 mg tablet 50 mg PO BID 02/05/21 03/08/21 History warfarin 5 mg tablet 5 mg PO QPM 02/05/21 03/08/21 History torsemide 20 mg tablet 40 mg PO BID 30 Days #120 tab 02/10/21 03/08/21 Rx Patient History Medical History (Updated 03/09/21 @ 10:43 by Peyman Dumont DO) CAD (coronary artery disease) CAD (coronary artery disease) Chronic atrial fibrillation Chronic back pain CKD (chronic kidney disease) stage 3, GFR 30-59 ml/min Cor pulmonale Depression HTN (hypertension) Hyperlipidemia Hypertension Obesities, morbid OSCAR (obstructive sleep apnea) Volume overload Surgical History S/P CABG x 4 Social History Smoking Status: Never smoker Second Hand Exposure: Yes; Hx Alcohol Use: No Hx Substance Use: No Preferred Language: Ethiopian Communication Ability: Effective Hearing Ability: Normal Public Relations Specialist Required: No Beliefs That Will Affect Care: None marital status: Single Current Living Situation: Alone Current Living Situation Comment: fist floor appartment Feels Safe at Home: Yes Safety Concerns: Feels Safe At This Time Assistive Devices: None Review of Systems Review of Systems: All systems reviewed & are unremarkable except as noted in HPI & below Physical Exam Physical Exam: General: Awake, alert and oriented x 3. No acute distress. HEENT: Normocephalic, atraumatic. Pupils equal, round and reactive to light and accommodation. Extraocular muscles are intact. Anicteric sclera. Moist mucous membranes. Neck: No JVD. No bruit. Cardiovascular: Regular. Positive S-4. Normal S-1 and S-2. No S-3. No murmurs or rubs. Pulmonary: Clear to auscultation B/L. No rales, rhonchi or wheezing Abdomen: Bowel sounds x 4, soft. No rebound, guarding or tenderness. No organomegaly. Extremities: No clubbing, cyanosis or edema. +2 pedal pulses bilaterally. Skin: Warm and dry. Results & Data ([facility]) Vital Signs (Past 12 Hours) Vital Signs Temp Pulse Pulse Pulse Resp BP BP 03/09/21 06:41 36.6 C 65 19 03/09/21 06:09 151/101 H 03/09/21 04:30 62 16 03/09/21 04:00 60 20 03/09/21 03:30 63 16 03/09/21 03:00 60 03/09/21 02:50 59 L 12 03/09/21 02:45 60 03/09/21 02:14 96 H 03/09/21 01:53 60 21 03/09/21 01:00 23 129/76 03/09/21 00:47 64 18 03/09/21 00:30 68 12 132/74 03/09/21 00:01 64 17 115/63 03/09/21 00:00 03/08/21 23:40 14 03/08/21 23:30 16 03/08/21 23:29 37.0 C 88 22 130/76 03/08/21 23:20 17 03/08/21 23:10 17 03/08/21 23:00 24 03/08/21 22:50 16 03/08/21 22:40 66 22 03/08/21 22:30 12 03/08/21 22:20 14 03/08/21 22:10 13 03/08/21 22:00 24 03/08/21 21:50 65 17 03/08/21 21:40 14 03/08/21 21:30 17 03/08/21 21:20 19 03/08/21 21:10 19 03/08/21 21:00 18 03/08/21 20:50 21 03/08/21 20:40 63 18 03/08/21 20:32 85 21 BP Pulse Ox Pulse Ox 03/09/21 06:41 125/87 98 03/09/21 06:09 03/09/21 04:30 98 03/09/21 04:00 97 03/09/21 03:30 97 03/09/21 03:00 03/09/21 02:50 03/09/21 02:45 03/09/21 02:14 03/09/21 01:53 96 03/09/21 01:00 95 03/09/21 00:47 93 08/03/21 00:30 94 03/09/21 00:01 93 03/09/21 00:00 95 03/08/21 23:40 96 03/08/21 23:30 97 03/08/21 23:29 96 03/08/21 23:20 95 03/08/21 23:10 96 03/08/21 23:00 95 03/08/21 22:50 94 03/08/21 22:40 94 03/08/21 22:30 96 03/08/21 22:20 95 03/08/21 22:10 95 03/08/21 22:00 94 03/08/21 21:50 03/08/21 21:40 03/08/21 21:30 03/08/21 21:20 03/08/21 21:10 03/08/21 21:00 03/08/21 20:50 03/08/21 20:40 03/08/21 20:32 Laboratory Results Laboratory Results - last 24 hr 03/08/21 03/08/21 03/08/21 14:51 14:51 14:51 WBC 9.28 RBC 4.45 L Hgb 12.5 L Hct 39.8 L MCV 89.4 MCH 28.1 MCHC 31.4 L RDW Std Deviation 56.3 H RDW Coeff of Karlene 17.0 H Plt Count 255 MPV 10.5 H Immature Gran % (Auto) 0.8 Neut % (Auto) 63.3 Lymph % (Auto) 24.5 [place] % (Auto) 8.1 Eos % (Auto) 2.8 Baso % (Auto) 0.5 Neut # (Auto) 5.88 Lymph # (Auto) 2.27 [place] # (Auto) 0.75 H Eos # (Auto) 0.26 Baso # (Auto) 0.05 Immature Gran # (Auto) 0.07 H PT INR APTT PTT Ratio Sodium 139 Potassium 4.4 Chloride 108 H Carbon Dioxide 26 Anion Gap 5.0 BUN 12 Creatinine 1.60 H Est Cr Clr Drug Dosing 72.7 Est GFR ( Amer) 53.9 Est GFR (Non-Af Amer) 46.5 BUN/Creatinine Ratio 7.4 L Glucose 117 H Calcium 8.5 Magnesium 2.4 Total Bilirubin 0.2 AST 42 H ALT 59 Alkaline Phosphatase 203 H Troponin I 0.019 Total Protein 7.0 Albumin 3.2 L Globulin 3.8 Albumin/Globulin Ratio 0.8 L Specimen Hemolysis COVID-19 Eval Order SARS-CoV-2 (PCR) 03/08/21 03/08/21 03/08/21 17:33 18:56 18:56 WBC RBC Hgb Hct MCV MCH MCHC RDW Std Deviation RDW Coeff of Karlene Plt Count MPV Immature Gran % (Auto) Neut % (Auto) Lymph % (Auto) [place] % (Auto) Eos % (Auto) Baso % (Auto) Neut # (Auto) Lymph # (Auto) [place] # (Auto) Eos # (Auto) Baso # (Auto) Immature Gran # (Auto) PT 11.4 INR 1.1 APTT 30.9 PTT Ratio 1.2 Sodium Potassium Chloride Carbon Dioxide Anion Gap BUN Creatinine Est Cr Clr Drug Dosing Est GFR ( Amer) Est GFR (Non-Af Amer) BUN/Creatinine Ratio Glucose Calcium Magnesium Total Bilirubin AST ALT Alkaline Phosphatase Troponin I Total Protein Albumin Globulin Albumin/Globulin Ratio Specimen Hemolysis COVID-19 Eval Order Covid19 at [facility] SARS-CoV-2 (PCR) NEGATIVE 03/08/21 03/09/21 03/09/21 21:00 02:56 02:56 WBC 9.89 RBC 4.18 L Hgb 11.9 L Hct 37.2 L MCV 89.0 MCH 28.5 MCHC 32.0 RDW Std Deviation 55.7 H RDW Coeff of Karlene 17.0 H Plt Count 230 MPV 10.3 Immature Gran % (Auto) 0.7 Neut % (Auto) 56.4 Lymph % (Auto) 30.3 [place] % (Auto) 9.6 Eos % (Auto) 2.5 Baso % (Auto) 0.5 Neut # (Auto) 5.57 Lymph # (Auto) 3.00 [place] # (Auto) 0.95 H Eos # (Auto) 0.25 Baso # (Auto) 0.05 Immature Gran # (Auto) 0.07 H PT INR APTT PTT Ratio Sodium 139 Potassium 4.0 Chloride 107 Carbon Dioxide 26 Anion Gap 5.0 BUN 13 Creatinine 1.51 H Est Cr Clr Drug Dosing 77.1 Est GFR ( Amer) 57.8 Est GFR (Non-Af Amer) 49.8 BUN/Creatinine Ratio 8.5 L Glucose 93 Calcium 8.2 L Magnesium Total Bilirubin AST ALT Alkaline Phosphatase Troponin I 0.018 Total Protein Albumin Globulin Albumin/Globulin Ratio Specimen Hemolysis COVID-19 Eval Order SARS-CoV-2 (PCR) 03/09/21 02:56 WBC RBC Hgb Hct MCV MCH MCHC RDW Std Deviation RDW Coeff of Karlene Plt Count MPV Immature Gran % (Auto) Neut % (Auto) Lymph % (Auto) [place] % (Auto) Eos % (Auto) Baso % (Auto) Neut # (Auto) Lymph # (Auto) [place] # (Auto) Eos # (Auto) Baso # (Auto) Immature Gran # (Auto) PT 11.3 INR 1.1 APTT 53.5 H* PTT Ratio 2.0 Sodium Potassium Chloride Carbon Dioxide Anion Gap BUN Creatinine Est Cr Clr Drug Dosing Est GFR ( Amer) Est GFR (Non-Af Amer) BUN/Creatinine Ratio Glucose Calcium Magnesium Total Bilirubin AST ALT Alkaline Phosphatase Troponin I Total Protein Albumin Globulin Albumin/Globulin Ratio Specimen Hemolysis COVID-19 Eval Order SARS-CoV-2 (PCR) (1) Volume overload Hypervolemia type: unspecified Qualified Code(s): E87.70 - Fluid overload, unspecified
[2021-03-09] MEDS: ROSUVASTATIN CALCIUM 20 MG TAB PO SCH (08:20)
[2021-03-09] MEDS: METOPROLOL SUCC 50MG EXT REL TAB PO SCH (08:21)
[2021-03-09] MEDS: FERROUS SULFATE 325 MG TAB PO SCH (08:21)
[2021-03-09] MEDS: ISOSORBIDE MONO EXTENDED REL 30 MG TABCR PO SCH (08:21)
[2021-03-09] MEDS: FLUTICASONE/VILANTEROL 200/25MCG 14 PUFFS/INHALER INH SCH (08:24)
[2021-03-09] MEDS: ARIPiprazole 5 MG TAB PO SCH (08:24)
[2021-03-09] MEDS: ESCITALOPRAM OXALATE 10 MG TAB PO SCH (08:24)
[2021-03-09 09:58] LABS: Partial Thromboplastin Ratio 2.5
[2021-03-09 09:59] LABS: Partial Thromboplastin Time 66.2 Seconds (21.0-31.0)
[2021-03-09] MEDS: HEPARIN SODIUM/DEXTROSE 25,000 UNITS/500 ML BAG IV SCH (12:04)
[2021-03-09] MEDS: WARFARIN SOD 5 MG TAB PO SCH (15:59)
--- NOTE | 2021-03-09 17:41 | Hospitalist Progress Note ---
Date of Service March 09, 2021 Assessment & Plan (1) Right-sided congestive heart failure: Plan: SOB (shortness of breath): Present on admission with worsening shortness of breath associated with weight gain CXR showed cardiomegaly without overt pulmonary edema. Received Lasix 60mg on admission Cardiology on board Continue Lasix 60mg IV Continue spironolactone Continue fluid restriction with 1.5L Continue monitor I/O Monitor BMP while on diuretic Will give additional lasix after obtaining BMP resolves Chronic A. fib Sick sinus syndrome Single-chamber pacemaker i Continue metoprolol 50 mg daily Not complaint with Lasix Continue heparin drip for now until INR at goal (2-3) H/O CAD S/P CABG Continue statin,aspirin, Isosorbide and Lopressor Hyperlipidemia On Rosuvastatin Obstructive sleep apnea CPAP at bedtime CKD III Creatinine at baseline Monitor renal function Avoid Nephrotoxic agents as able Morbid obesity BMI:60.9 Counseling about weight loss Depression Continue home medications HTN Continue Lopressor and Imdur Monitor BP DVT Px: on Coumadin Disposition Will discharge once medically stable With fluid retention hx right-sided heart failure/cor pulmonale/OSCAR on BiPAP Secondary to dietary indiscretion Home NSAID contributory Exertional chest pain possibly anginal from fluid retention hx CAD sp CABG SSS status post PPM on Coumadin, A. fib with paced complexes, INR subtherapeutic hypertension, stable hyperlipidemia, on statin Rx CRI, creatinine at baseline chronic back pain Mood disorder, stable past tobacco/alcohol abuse as per records Chronic anemia, hemoglobin at baseline PCU Lasix albumin now Defer subsequent diuretic dosing to Cardiology for CHF Strict I/Os, daily weights, CHF education, fluid restriction Hold Celebrex Patient counseled about fluid retention and NSAID use. DVT prophylaxis. IV Heparin-Coumadin bridge therapy given very subtherapeutic level, INR goal between 2 and 3 Full code Text document was generated using [employer] voice recognition software. It may contain grammatical or spelling errors. Kindly contact undersigned for clarification of any documentation item in question. Admission and Anticipated Discharge Date Admission Date: March 08, 2021 Subjective Patient was seen and examined for follow-up of shortness of breath Lying in bed with no acute distress Patient said that his breathing slightly improved compared to when he came he admitted that He has not been taking his Coumadin because he forgot to put it in his pills box He said that the coumadin was in the cabinet Patient said that he has not been compliant with his diet Currently denies any chest pain, palpitation, dizziness, shortness of breath. Physical Exam Physical Exam: General- No acute distress Head- atraumatic Eyes- PERRL, EOMI, ENT- oropharynx clear Neck- supple, no JVD Lungs- clear to auscultation Heart- regular rhythm; no murmur Abdomen- normal bowel sounds, soft, nontender Extremities- no calf tenderness, +edema Neuro- alert, oriented x 3; PERRL, EOMI; no facial palsy; no dysarthria Skin- warm & dry Results & Data Results & Data ([facility]) Vital Signs (Past 12 Hours) Vital Signs Temp Pulse Resp BP BP Pulse Ox Pulse Ox 03/09/21 16:00 95 03/09/21 14:00 37.0 C 61 18 131/60 99 03/09/21 12:00 36.9 C 77 22 132/69 98 03/09/21 10:30 62 18 96 03/09/21 08:00 36.7 C 67 20 129/74 98 98 03/09/21 06:41 36.6 C 65 19 125/87 98 03/09/21 06:09 151/101 H
[2021-03-09] MEDS: ZOLPIDEM TARTRATE 5 MG TAB PO PRN (22:22)
[2021-03-09] MEDS ORDERED: FUROSEMIDE 60 MG in SYRINGE 0 ML IV ONE (23:00)
[2021-03-10] MEDS: HEPARIN SODIUM/DEXTROSE 25,000 UNITS/500 ML BAG IV SCH ×2 (02:33→15:12)
[2021-03-10] MEDS: GABAPENTIN 600 MG TAB PO SCH ×2 (07:56→21:02)
[2021-03-10] MEDS: lamoTRIgine 100 MG TAB PO SCH ×2 (07:56→21:02)
[2021-03-10] MEDS: oxyCODONE HCL IR 5 MG TAB (IMMEDIATE RELEASE) PO PRN ×2 (07:56→19:25)
[2021-03-10] MEDS: FERROUS SULFATE 325 MG TAB PO SCH (07:57)
[2021-03-10] MEDS: SPIRONOLACTONE 25 MG TAB PO SCH ×2 (07:57→16:13)
[2021-03-10] MEDS: TOPIRAMATE 25 MG TAB PO SCH ×2 (07:57→16:14)
[2021-03-10] MEDS: ROSUVASTATIN CALCIUM 20 MG TAB PO SCH (07:57)
[2021-03-10] MEDS: METOPROLOL SUCC 50MG EXT REL TAB PO SCH (08:03)
[2021-03-10] MEDS: ESCITALOPRAM OXALATE 10 MG TAB PO SCH (08:03)
[2021-03-10] MEDS: ARIPiprazole 5 MG TAB PO SCH (08:03)
[2021-03-10] MEDS: ISOSORBIDE MONO EXTENDED REL 30 MG TABCR PO SCH (08:03)
[2021-03-10] MEDS: FLUTICASONE/VILANTEROL 200/25MCG 14 PUFFS/INHALER INH SCH (08:03)
[2021-03-10] MEDS: POTASSIUM CHLORIDE CRTAB 20 MEQ TABCR PO SCH ×2 (08:07→21:05)
--- NOTE | 2021-03-10 08:19 | Cardiology Progress Note ---
Date of Service March 10, 2021 Assessment & Plan (1) Volume overload: Plan: recurrent (2) Right-sided congestive heart failure: Plan: recurrent (3) CKD (chronic kidney disease) stage 3, GFR 30-59 ml/min: (4) Lower extremity edema: (5) Obesities, morbid: (6) Cor pulmonale: (7) CAD (coronary artery disease): (8) HTN (hypertension): (9) Chronic atrial fibrillation: (10) SSS (sick sinus syndrome): (11) Status post placement of cardiac pacemaker: (12) Dietary noncompliance: Plan: recurrent, second admission within 1 month (13) Nonadherence to medication: Plan: Patient presents with volume overload due to recurrent dietary noncompliance and likely medication noncompliance as well. Once again the pathophysiology and treatment were reviewed with the patient Once again, patient counseled great lengths on the need for adherence to medication regimen as well as fluid and sodium intake restriction. Patient states that he understands and is willing to comply. 60 mg of IV lasix given x1 yesterday. 1. Patient responded well to regimen from last admission including Bumex 1 mg IV every 8 hours. Will restart now. 2. Kidney function and Potassium Stable on labs this am- repeat BMP at 1600- supplement potassium as appropriate. 3. Strict I/O's 4. Fluid restriction 5. Daily weights 6. Heparin drip as a bridge with a goal INR of 2 to 3. (Today's INR 1.3) Admission and Anticipated Discharge Date Admission Date: March 08, 2021 Supervising Physician Co-Signing Physician Notes Patient was seen and examined, personally evaluated. Agree with assessment and plan as above. He is initially responding to IV diuretics. He struggles with medication and dietary and fluid restriction compliance Ongoing teaching continues Subjective Resting comfortably in bed. Notes he is feeling better than yesterday. Less short of breath, able to ambulate with assistance to the toilet- no difficulty. No chest pain, palpitations, dizziness, syncope or near syncope. Does continue to have orthopnea. No PND. Abdomen continues to be distended and taut, lower extremity edema at baseline. No fever, chills, cough, hematochezia, melena, or hemoptysis. One time dose of Lasix 60 mg IV given. TOlerated Bumex 1 mg IV every 8 hours last admission. Down 3930ml over night Today's weight 163.8 kg Tele monitor reviewed: Afib 60s, occasional paced beats Cardiac History: 1. Premature atherosclerotic coronary disease status post coronary artery bypass grafting x4 in 2001 at age 43. 2. Chronic atrial fibrillation on chronic anticoagulation. 3. 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 Obstructive sleep apnea on BiPAP supplementation with past oxygen use as well nocturnally. 5. Morbid obesity. 6. Hyperlipidemia. 7. Hypertension. 8. Cor pulmonale with chronic class 3 right heart failure and edema. Review of Systems Review of Systems: All systems reviewed & are unremarkable except as noted in HPI & below Physical Exam Physical Exam: General: No acute distress. A+Ox3. HEENT: Normocephalic. Atraumatic. Conjunctiva and sclera clear. NECK: Unable to assess neck veins due to body habitus Heart: Distant heart sounds, without murmur, rubs, gallops. Lungs: Diminished lung sounds, +crackles and wheezing throughout Abdomen: Obese abdomen with large panniculus, non-tender, taut. Extremities: +1 chronic stasis edema. No clubbing or cyanosis. Pulses: radial=2/4, posterior tibial=2/4, dorsalis pedis = 2/4. NEURO: No focal deficits. PSYCH: Normal. Results & Data ([facility]) Vital Signs (Past 12 Hours) Vital Signs Temp Pulse Pulse Pulse Resp BP Pulse Ox 03/10/21 07:25 36.7 C 70 20 118/67 96 03/10/21 05:10 63 03/10/21 04:10 36.7 C 75 21 112/75 95 03/09/21 23:43 37.0 C 66 19 138/84 97 Laboratory Results 03/10/21 03/10/21 03/10/21 Range/Units 07:12 06:49 06:49 WBC 11.23 H (4.8-10.8) K/uL RBC 4.55 L (4.7-6.1) M/uL Hgb 12.8 L (14.0-18.0) g/dL Hct 40.3 L (42-52) % MCV 88.6 (80-100) fL MCH 28.1 (25-34) pg MCHC 31.8 L (32-36) g/dL RDW Std Deviation 54.7 H (36.4-46.3) fL RDW Coeff of Karlene 16.9 H (11.5-14.5) % Plt Count 248 (130-400) K/uL MPV 11.4 H (7.4-10.4) fL PT 12.8 H (9.0-12.0) Seconds INR 1.3 H (0.9-1.1) APTT 83.7 H* (21.0-31.0) Seconds PTT Ratio 3.2 Sodium 135 L (136-145) mmol/L Potassium 4.1 (3.5-5.1) mmol/L Chloride 105 (98-107) mmol/L Carbon Dioxide 24 (21-32) mmol/L Anion Gap 6.0 (3-11) BUN 15 (7-18) mg/dl Creatinine 1.49 H (0.6-1.4) mg/dl Est Cr Clr Drug Dosing 77.3 ml/min Est GFR ( Amer) 58.7 ml/min Est GFR (Non-Af Amer) 50.6 ml/min BUN/Creatinine Ratio 9.7 L (10-20) Glucose 97 (70-99) mg/dl Calcium 8.8 (8.5-10.1) mg/dl (1) Volume overload Hypervolemia type: unspecified Qualified Code(s): E87.70 - Fluid overload, unspecified
[2021-03-10 08:24] LABS: Hematocrit (blood only) 40.3 % (42-52); Hemoglobin 12.8 g/dL (14.0-18.0); Mean Corpuscular Hemoglobin 28.1 pg (25-34); Mean Corpuscular Hgb Conc 31.8 g/dL (32-36); Mean Corpuscular Volume 88.6 fL (80-100); Mean Platelet Volume 11.4 fL (7.4-10.4); Platelet Count 248 K/uL (130-400); RDW Coefficient of Variation 16.9 % (11.5-14.5); RDW Standard Deviation 54.7 fL (36.4-46.3); Red Blood Count 4.55 M/uL (4.7-6.1); White Blood Count 11.23 K/uL (4.8-10.8)
[2021-03-10 08:51] LABS: INR 1.3 (0.9-1.1); Partial Thromboplastin Ratio 3.2; Prothrombin Time 12.8 Seconds (9.0-12.0)
[2021-03-10 09:01] LABS: BUN Creatinine Ratio 9.7 (10-20); Calcium 8.8 mg/dl (8.5-10.1); Creatinine Clr Calc Pharmacy 77.3 ml/min; Est GFR (African American) 58.7 ml/min; Est GFR (Non-African American) 50.6 ml/min; Potassium 4.1 mmol/L (3.5-5.1)
[2021-03-10 09:15] LABS: Partial Thromboplastin Time 83.7 Seconds (21.0-31.0)
[2021-03-10] MEDS ORDERED: PROMETHAZINE HCL 25 MG TAB PO PRN (10:01)
[2021-03-10] MEDS: BUMETANIDE 1 MG in SYRINGE 0 ML IV SCH ×3 (10:38→21:01)
[2021-03-10 15:37] LABS: BUN Creatinine Ratio 8.7 (10-20); Calcium 8.5 mg/dl (8.5-10.1); Est GFR (African American) 53.9 ml/min; Est GFR (Non-African American) 46.5 ml/min; Potassium 4.5 mmol/L (3.5-5.1)
[2021-03-10 15:47] LABS: Partial Thromboplastin Ratio 1.9
[2021-03-10 15:48] LABS: Partial Thromboplastin Time 50.1 Seconds (21.0-31.0)
[2021-03-10] MEDS: WARFARIN SOD 5 MG TAB PO SCH (16:13)
[2021-03-10] MEDS: ZOLPIDEM TARTRATE 5 MG TAB PO PRN (23:29)
[2021-03-10] MEDS: QUEtiapine FUMARATE 200 MG TAB PO PRN (23:29)
--- NOTE | 2021-03-11 05:39 | Electrocardiogram Report ---
Test Reason : Blood Pressure : / mmHG Vent. Rate : 087 BPM Atrial Rate : 087 BPM P-R Int : 000 ms QRS Dur : 092 ms QT Int : 350 ms P-R-T Axes : 000 082 235 degrees QTc Int : 421 ms Atrial fibrillation with frequent ventricular-paced complexes Abnormal ECG When compared with ECG of 04-FEB-2021 23:01, Vent. rate has increased BY 16 BPM Confirmed by Black Rinaldi ([id number]) on 03/11/2021 5:38:25 AM Referred By: Confirmed By:Black Rinaldi
[2021-03-11] MEDS: HEPARIN SODIUM/DEXTROSE 25,000 UNITS/500 ML BAG IV SCH ×2 (06:03→21:25)
[2021-03-11] MEDS: oxyCODONE HCL IR 5 MG TAB (IMMEDIATE RELEASE) PO PRN ×2 (07:43→15:13)
[2021-03-11] MEDS: lamoTRIgine 100 MG TAB PO SCH ×2 (07:44→21:28)
[2021-03-11] MEDS: ISOSORBIDE MONO EXTENDED REL 30 MG TABCR PO SCH (07:45)
[2021-03-11] MEDS: ROSUVASTATIN CALCIUM 20 MG TAB PO SCH (07:45)
[2021-03-11] MEDS: METOPROLOL SUCC 50MG EXT REL TAB PO SCH (07:45)
[2021-03-11] MEDS: FERROUS SULFATE 325 MG TAB PO SCH (07:46)
[2021-03-11] MEDS: TOPIRAMATE 25 MG TAB PO SCH ×2 (07:46→16:33)
[2021-03-11] MEDS: ESCITALOPRAM OXALATE 10 MG TAB PO SCH (07:46)
[2021-03-11] MEDS: GABAPENTIN 600 MG TAB PO SCH ×2 (07:47→21:28)
[2021-03-11] MEDS: ARIPiprazole 5 MG TAB PO SCH (07:47)
[2021-03-11] MEDS: SPIRONOLACTONE 25 MG TAB PO SCH ×2 (07:47→16:34)
[2021-03-11] MEDS: FLUTICASONE/VILANTEROL 200/25MCG 14 PUFFS/INHALER INH SCH (07:48)
[2021-03-11] MEDS: BUMETANIDE 1 MG in SYRINGE 0 ML IV SCH ×3 (07:48→21:28)
[2021-03-11] MEDS: POTASSIUM CHLORIDE CRTAB 20 MEQ TABCR PO SCH ×2 (07:51→21:29)
[2021-03-11 08:43] LABS: INR 1.6 (0.9-1.1); Partial Thromboplastin Ratio 2.8; Prothrombin Time 15.8 Seconds (9.0-12.0)
[2021-03-11 08:47] LABS: Partial Thromboplastin Time 73.7 Seconds (21.0-31.0)
[2021-03-11 09:33] LABS: Basophils # (auto) 0.02 K/uL (0-0.2); Basophils % (auto) 0.2 %; Eosinophils # (auto) 0.23 K/uL (0-0.5); Eosinophils % (auto) 2.3 %; Hematocrit (blood only) 37.2 % (42-52); Hemoglobin 11.9 g/dL (14.0-18.0); Immature Granulocytes # (auto) 0.09 K/uL (0.00-0.02); Immature Granulocytes % (auto) 0.9 %; Lymphocytes # (auto) 2.01 K/uL (1.2-3.4); Lymphocytes % (auto) 20.4 %; Mean Corpuscular Hemoglobin 27.9 pg (25-34); Mean Corpuscular Volume 87.3 fL (80-100); Monocytes # (auto) 0.74 K/uL (0.11-0.59); Monocytes % (auto) 7.5 %; Neutrophils # (auto) 6.74 K/uL (1.4-6.5); Neutrophils % (auto) 68.7 %; Platelet Count 219 K/uL (130-400); RDW Standard Deviation 54.6 fL (36.4-46.3); Red Blood Count 4.26 M/uL (4.7-6.1); White Blood Count 9.83 K/uL (4.8-10.8)
[2021-03-11 09:41] LABS: Calcium 8.7 mg/dl (8.5-10.1); Creatinine Clr Calc Pharmacy 80.4 ml/min; Est GFR (African American) 61.7 ml/min; Est GFR (Non-African American) 53.2 ml/min; Potassium 3.9 mmol/L (3.5-5.1)
--- NOTE | 2021-03-11 11:11 | Cardiology Progress Note ---
Date of Service March 11, 2021 Assessment & Plan (1) Nonadherence to medication: (2) Dietary noncompliance: (3) Right-sided congestive heart failure: Plan: Ongoing evidence of acute decompensated diastolic congestive heart failure, responding to IV diuresis. Continue IV diuretics as prescribed. Monitor renal function and electrolytes daily. INR 1.6 today, Heparin bridge back to proper Coumadin anticoagulation. Admission and Anticipated Discharge Date Admission Date: March 08, 2021 Supervising Physician Co-Signing Physician Notes Patient was seen and personally examined. He has responded to IV diuresis. Remains on heparin until fully anticoagulated CHF instructions once again discussed in detail with patient will need significant lifestyle modification Subjective Patient seen and examined. Chart, medications, and telemetry reviewed. Patient feels better overall though notes ongoing fluid retention, orthopnea, intermittent PND, lower extremity peripheral edema. Tellez catheter in place. I/O are -7683 mL overall Weight is down 3.1 kg since admission Creatinine improved this morning, 1.43 mg/dl. Telemetry reveals atrial fibrillation with intermittent ventricular pacing, rates controlled. Review of Systems Review of Systems: No angina. No pleuritic chest pain. No palpitations. No dizziness or near syncope. No fevers or chills. Appetite is good. Bowels are working regularly. Tellez catheter in place, without irritation. Complete review of system is otherwise as stated above, negative, or noncontributory. Physical Exam Physical Exam: General: A&Ox3. NAD. Elevated BMI. HENT: Normocephalic. Atraumatic. Eyes: PER. Conjunctiva pink, sclera clear. Neck: Bilateral carotid bruits. I was unable to appreciate his neck veins. Heart: Irregular. Grade II/ systolic murmur. Lungs: Decreased. Diminished. No wheeze. Abdomen: +BS. Soft. Nontender. No masses or organomegaly. Extremities: 1+ edema. No clubbing. No cyanosis. Limited neurological examination is without focal deficits. Pulses: Posterior tibial=1/4. Results & Data ([facility]) Vital Signs (Past 12 Hours) Vital Signs Temp Pulse Pulse Pulse Resp BP BP 03/11/21 08:00 03/11/21 07:31 36.6 C 71 23 109/71 03/11/21 07:00 68 03/11/21 04:24 36.5 C 88 24 115/65 03/11/21 03:41 65 03/11/21 03:12 71 03/10/21 23:47 36.9 C 63 24 103/63 Pulse Ox Pulse Ox 03/11/21 08:00 96 03/11/21 07:31 96 03/11/21 07:00 03/11/21 04:24 91 03/11/21 03:41 03/11/21 03:12 03/10/21 23:47 92 Laboratory Results Laboratory Results - last 24 hr 03/10/21 03/10/21 03/11/21 15:06 15:06 07:51 WBC RBC Hgb Hct MCV MCH MCHC RDW Std Deviation RDW Coeff of Karlene Plt Count MPV Immature Gran % (Auto) Neut % (Auto) Lymph % (Auto) [place] % (Auto) Eos % (Auto) Baso % (Auto) Neut # (Auto) Lymph # (Auto) [place] # (Auto) Eos # (Auto) Baso # (Auto) Immature Gran # (Auto) PT 15.8 H INR 1.6 H APTT 50.1 H* 73.7 H* PTT Ratio 1.9 2.8 Sodium 134 L Potassium 4.5 Chloride 105 Carbon Dioxide 26 Anion Gap 3.0 BUN 14 Creatinine 1.60 H Est Cr Clr Drug Dosing 72.0 Est GFR ( Amer) 53.9 Est GFR (Non-Af Amer) 46.5 BUN/Creatinine Ratio 8.7 L Glucose 88 Calcium 8.5 03/11/21 03/11/21 07:56 07:56 WBC 9.83 RBC 4.26 L Hgb 11.9 L Hct 37.2 L MCV 87.3 MCH 27.9 MCHC 32.0 RDW Std Deviation 54.6 H RDW Coeff of Karlene 17.0 H Plt Count 219 MPV 11.0 H Immature Gran % (Auto) 0.9 Neut % (Auto) 68.7 Lymph % (Auto) 20.4 [place] % (Auto) 7.5 Eos % (Auto) 2.3 Baso % (Auto) 0.2 Neut # (Auto) 6.74 H Lymph # (Auto) 2.01 [place] # (Auto) 0.74 H Eos # (Auto) 0.23 Baso # (Auto) 0.02 Immature Gran # (Auto) 0.09 H PT INR APTT PTT Ratio Sodium 135 L Potassium 3.9 Chloride 105 Carbon Dioxide 26 Anion Gap 4.0 BUN 16 Creatinine 1.43 H Est Cr Clr Drug Dosing 80.4 Est GFR ( Amer) 61.7 Est GFR (Non-Af Amer) 53.2 BUN/Creatinine Ratio 11.0 Glucose 100 H Calcium 8.7
[2021-03-11 15:45] LABS: Partial Thromboplastin Ratio 2.4
[2021-03-11 15:54] LABS: Partial Thromboplastin Time 63.4 Seconds (21.0-31.0)
[2021-03-11] MEDS: WARFARIN SOD 5 MG TAB PO SCH (16:33)
--- NOTE | 2021-03-11 17:06 | Hospitalist Progress Note ---
Date of Service March 11, 2021 Assessment & Plan (1) Right-sided congestive heart failure: Plan: Acute on chronic diastolic (congestive) heart failure Per admitting service notes: SOB (shortness of breath): Present on admission with worsening shortness of breath associated with weight gain CXR showed cardiomegaly without overt pulmonary edema. Received Lasix 60mg on admission Cardiology on board Continue Lasix 60mg IV Continue spironolactone Continue fluid restriction with 1.5L Continue monitor I/O Monitor BMP while on diuretic Will give additional lasix after obtaining BMP resolves 03/11/2021 Diuresing well Continue Bumex and spironolactone Continue to monitor Chronic A. fib Sick sinus syndrome Single-chamber pacemaker i Continue metoprolol 50 mg daily Not complaint with Lasix INR 1.6 Continue heparin drip for now until INR at goal (2-3) H/O CAD S/P CABG Continue statin,aspirin, Isosorbide and Lopressor Hyperlipidemia On Rosuvastatin Obstructive sleep apnea CPAP at bedtime CKD III Creatinine at baseline Monitor renal function Avoid Nephrotoxic agents as able Morbid obesity BMI:60.9 Counseling about weight loss Depression Continue home medications HTN Continue Lopressor and Imdur Monitor BP DVT Px: on Coumadin Disposition Will discharge once medically stable Admission and Anticipated Discharge Date Admission Date: March 08, 2021 Subjective Follow-up for acute CHF, etc. Seen resting in bedside chair, body of lunch, not in distress, comfortable States he feels improved today No shortness of breath, chest pain, abrasions, dizziness No bleeding No other symptoms Review of Systems Review of Systems: All noted and reviewed, negative except for above Physical Exam Physical Exam: General- oriented x 3, not in distress, speaks in sentences with no effort or accessory muscle use Eyes- anicteric Neck- no JVD Lungs- clear breath sounds bilaterally, no rales/wheezes Heart- normal rate, regular rhythm; no murmurs Abdomen- normal bowel sounds, nondistended, soft, nontender Extremities-mild lower extremity edema, no calf tenderness Neuro- alert, oriented x 3; no gross focal neurologic deficits Skin- warm & dry Results & Data Results & Data ([facility]) Vital Signs (Past 12 Hours) Vital Signs Temp Pulse Pulse Resp BP BP Pulse Ox 03/11/21 15:09 36.7 C 66 18 115/62 96 03/11/21 15:08 03/11/21 14:52 66 03/11/21 11:00 69 18 121/96 94 03/11/21 08:00 03/11/21 07:31 36.6 C 71 23 109/71 96 03/11/21 07:00 68 Pulse Ox 03/11/21 15:09 03/11/21 15:08 98 03/11/21 14:52 03/11/21 11:00 03/11/21 08:00 96 03/11/21 07:31 03/11/21 07:00
--- NOTE | 2021-03-11 17:10 | Hospitalist Progress Note ---
Date of Service March 11, 2021 Delayed entry Date of service 03/10/2021 Assessment & Plan (1) Right-sided congestive heart failure: Plan: Acute on chronic diastolic (congestive) heart failure Continue diuresis Monitor NATHANIEL's Continue Bumex and Spironolactone Cardiology service on board Chronic A. fib Sick sinus syndrome Single-chamber pacemaker i Continue metoprolol 50 mg daily Continue heparin drip for now until INR at goal (2-3) H/O CAD S/P CABG Continue statin,aspirin, Isosorbide and Lopressor Hyperlipidemia On Rosuvastatin Obstructive sleep apnea CPAP at bedtime CKD III Creatinine at baseline Monitor renal function Avoid Nephrotoxic agents as able Morbid obesity BMI:60.9 Counseling about weight loss Depression Continue home medications HTN Continue Lopressor and Imdur Monitor BP DVT Px: on Coumadin Disposition Will discharge once medically stable Admission and Anticipated Discharge Date Admission Date: March 08, 2021 Subjective Follow-up for acute CHF Seen resting in bed, comfortable, not in distress States he is starting to feel improved Breathing is improving, no chest pain, palpitations, dizziness Nose bleeding No other symptoms Review of Systems Review of Systems: All reviewed and negative except for above Physical Exam Physical Exam: General- oriented x 3, not in distress, speaks in sentences with no effort or accessory muscle use Head- atraumatic Eyes- PERRL, EOMI, anicteric ENT- oropharynx clear Neck- supple, no JVD, no adenopathy, no thyromegaly; carotids +2/2, no bruits appreciated Lungs-mild rales bilaterally, no wheezing noted Heart- normal rate, irregularly irregular rhythm; no murmur, no gallop, no rub appreciated Abdomen- normal bowel sounds, nondistended, soft, nontender, no masses or hepatosplenomegaly Extremities-moderate lower extremity edema, bilateral, no calf tenderness; peripheral pulses intact Neuro- alert, oriented x 3; CN 2-12 grossly intact; motor 5/5 bilaterally;sensation 100% on all extremities; no other gross focal neurologic deficits Skin- warm & dry Results & Data Results & Data ([facility]) Vital Signs (Past 12 Hours) Vital Signs Temp Pulse Pulse Resp BP BP Pulse Ox 03/11/21 15:09 36.7 C 66 18 115/62 96 03/11/21 15:08 03/11/21 14:52 66 03/11/21 11:00 69 18 121/96 94 03/11/21 08:00 03/11/21 07:31 36.6 C 71 23 109/71 96 03/11/21 07:00 68 Pulse Ox 03/11/21 15:09 03/11/21 15:08 98 03/11/21 14:52 03/11/21 11:00 03/11/21 08:00 96 03/11/21 07:31 03/11/21 07:00 All noted and reviewed including below
[2021-03-11] MEDS: ZOLPIDEM TARTRATE 5 MG TAB PO PRN (21:53)
[2021-03-11] MEDS: QUEtiapine FUMARATE 200 MG TAB PO SCH (21:53)
[2021-03-12 06:34] LABS: Basophils # (auto) 0.03 K/uL (0-0.2); Basophils % (auto) 0.3 %; Eosinophils # (auto) 0.24 K/uL (0-0.5); Eosinophils % (auto) 2.3 %; Hematocrit (blood only) 38.1 % (42-52); Hemoglobin 12.3 g/dL (14.0-18.0); Immature Granulocytes # (auto) 0.13 K/uL (0.00-0.02); Immature Granulocytes % (auto) 1.3 %; Lymphocytes # (auto) 2.24 K/uL (1.2-3.4); Lymphocytes % (auto) 21.8 %; Mean Corpuscular Hemoglobin 28.1 pg (25-34); Mean Corpuscular Hgb Conc 32.3 g/dL (32-36); Mean Platelet Volume 10.8 fL (7.4-10.4); Monocytes # (auto) 0.95 K/uL (0.11-0.59); Monocytes % (auto) 9.3 %; Neutrophils # (auto) 6.68 K/uL (1.4-6.5); Platelet Count 201 K/uL (130-400); RDW Coefficient of Variation 16.8 % (11.5-14.5); RDW Standard Deviation 53.7 fL (36.4-46.3); Red Blood Count 4.38 M/uL (4.7-6.1); White Blood Count 10.27 K/uL (4.8-10.8)
[2021-03-12 06:51] LABS: BUN Creatinine Ratio 12.6 (10-20); Calcium 8.6 mg/dl (8.5-10.1); Creatinine Clr Calc Pharmacy 74.3 ml/min; Est GFR (African American) 56.4 ml/min; Est GFR (Non-African American) 48.7 ml/min; Magnesium 2.5 mg/dl (1.8-2.4)
[2021-03-12 06:53] LABS: INR 1.7 (0.9-1.1); Partial Thromboplastin Ratio 2.5; Prothrombin Time 16.5 Seconds (9.0-12.0)
[2021-03-12 06:56] LABS: Partial Thromboplastin Time 65.4 Seconds (21.0-31.0)
[2021-03-12] MEDS: lamoTRIgine 100 MG TAB PO SCH ×2 (07:32→21:07)
[2021-03-12] MEDS: FLUTICASONE/VILANTEROL 200/25MCG 14 PUFFS/INHALER INH SCH (07:32)
[2021-03-12] MEDS: GABAPENTIN 600 MG TAB PO SCH ×2 (07:32→21:07)
[2021-03-12] MEDS: TOPIRAMATE 25 MG TAB PO SCH ×2 (07:33→15:56)
[2021-03-12] MEDS: SPIRONOLACTONE 25 MG TAB PO SCH ×2 (07:33→15:55)
[2021-03-12] MEDS: ESCITALOPRAM OXALATE 10 MG TAB PO SCH (07:33)
[2021-03-12] MEDS: ARIPiprazole 5 MG TAB PO SCH (07:33)
[2021-03-12] MEDS: FERROUS SULFATE 325 MG TAB PO SCH (07:33)
[2021-03-12] MEDS: METOPROLOL SUCC 50MG EXT REL TAB PO SCH (07:33)
[2021-03-12] MEDS: ROSUVASTATIN CALCIUM 20 MG TAB PO SCH (07:34)
[2021-03-12] MEDS: BUMETANIDE 1 MG in SYRINGE 0 ML IV SCH ×3 (07:34→21:07)
[2021-03-12] MEDS: ISOSORBIDE MONO EXTENDED REL 30 MG TABCR PO SCH (07:34)
[2021-03-12] MEDS: HEPARIN SODIUM/DEXTROSE 25,000 UNITS/500 ML BAG IV SCH ×3 (07:56→14:47)
[2021-03-12] MEDS: oxyCODONE HCL IR 5 MG TAB (IMMEDIATE RELEASE) PO PRN ×3 (09:21→21:10)
[2021-03-12] MEDS: POTASSIUM CHLORIDE CRTAB 20 MEQ TABCR PO SCH ×2 (09:22→21:07)
--- NOTE | 2021-03-12 09:47 | Cardiology Progress Note ---
Date of Service March 12, 2021 Assessment & Plan (1) Nonadherence to medication: (2) Dietary noncompliance: (3) Right-sided congestive heart failure: Plan: Improving acute decompensated diastolic congestive heart failure, responding well to IV diuresis, sodium, and fluid restrictions. Continue IV diuretics at least another day. Monitor renal function and electrolytes daily. INR 1.7 today, Heparin bridge back to proper Coumadin anticoagulation. Admission and Anticipated Discharge Date Admission Date: March 08, 2021 Supervising Physician Co-Signing Physician Notes Patient was seen and examined, chart medications and telemetry reviewed. Patient still responding to IV diuretics. Given frequently lapses in congestive heart failure would continue IV diuresis as he is not yet reached dry weight. Subjective Patient seen and examined. Chart, medications, and telemetry reviewed. Patient feels better overall though with ongoing fluid retention, orthopnea, lower extremity peripheral edema. No PND last night. Tellez catheter in place. I/O are negative 9,816.12 mL's overall. Weight is down 7.6 kg (16.76 pounds) since admission INR remains subtherapeutic, 1.7 this morning. Telemetry reveals atrial fibrillation with intermittent ventricular pacing, rat es well controlled. Review of Systems Review of Systems: Complete Review of Systems is as stated above, negative, or noncontributory. Physical Exam Physical Exam: General: A&Ox3. NAD. Elevated BMI. HENT: Normocephalic. Atraumatic. Eyes: PER. Conjunctiva pink, sclera clear. Neck: Bilateral carotid bruits. I was unable to appreciate his neck veins. Heart: Irregular. Grade II/ systolic murmur. Lungs: Decreased. Diminished. No wheeze. Abdomen: +BS. Soft. Nontender. No masses or organomegaly. Extremities: 1+ edema. No clubbing. No cyanosis. Limited neurological examination is without focal deficits. Pulses: Posterior tibial=1/4. Results & Data ([facility]) Vital Signs (Past 12 Hours) Vital Signs Temp Pulse Pulse Resp BP BP Pulse Ox 03/12/21 08:00 03/12/21 07:22 36.8 C 64 20 135/82 92 03/12/21 04:36 36.7 C 77 24 101/57 L 03/12/21 03:38 70 20 97 03/11/21 23:30 36.8 C 64 18 114/54 L 96 03/11/21 23:15 68 20 96 03/11/21 22:20 69 Pulse Ox 03/12/21 08:00 95 03/12/21 07:22 03/12/21 04:36 03/12/21 03:38 03/11/21 23:30 03/11/21 23:15 03/11/21 22:20 Laboratory Results Laboratory Results - last 24 hr 03/11/21 03/12/21 03/12/21 14:58 05:52 05:52 WBC 10.27 RBC 4.38 L Hgb 12.3 L Hct 38.1 L MCV 87.0 MCH 28.1 MCHC 32.3 RDW Std Deviation 53.7 H RDW Coeff of Karlene 16.8 H Plt Count 201 MPV 10.8 H Immature Gran % (Auto) 1.3 Neut % (Auto) 65.0 Lymph % (Auto) 21.8 Richardson % (Auto) 9.3 Eos % (Auto) 2.3 Baso % (Auto) 0.3 Neut # (Auto) 6.68 H Lymph # (Auto) 2.24 Richardson # (Auto) 0.95 H Eos # (Auto) 0.24 Baso # (Auto) 0.03 Immature Gran # (Auto) 0.13 H PT 16.5 H INR 1.7 H APTT 63.4 H* 65.4 H* PTT Ratio 2.4 2.5 Sodium Potassium Chloride Carbon Dioxide Anion Gap BUN Creatinine Est Cr Clr Drug Dosing Est GFR ( Amer) Est GFR (Non-Af Amer) BUN/Creatinine Ratio Glucose Calcium Magnesium 03/12/21 05:52 WBC RBC Hgb Hct MCV MCH MCHC RDW Std Deviation RDW Coeff of Karlene Plt Count MPV Immature Gran % (Auto) Neut % (Auto) Lymph % (Auto) Richardson % (Auto) Eos % (Auto) Baso % (Auto) Neut # (Auto) Lymph # (Auto) Richardson # (Auto) Eos # (Auto) Baso # (Auto) Immature Gran # (Auto) PT INR APTT PTT Ratio Sodium 134 L Potassium 4.0 Chloride 106 Carbon Dioxide 23 Anion Gap 5.0 BUN 19 H Creatinine 1.54 H Est Cr Clr Drug Dosing 74.3 Est GFR ( Amer) 56.4 Est GFR (Non-Af Amer) 48.7 BUN/Creatinine Ratio 12.6 Glucose 100 H Calcium 8.6 Magnesium 2.5 H
[2021-03-12] MEDS: WARFARIN SOD 7.5 MG TAB PO SCH (15:55)
--- NOTE | 2021-03-12 18:14 | Hospitalist Progress Note ---
Date of Service March 12, 2021 Assessment & Plan (1) Right-sided congestive heart failure: Plan: Acute on chronic diastolic (congestive) heart failure negative 8 L Fluid balance so far gradually improving Monitor NATHANIEL's Continue Bumex and Spironolactone Cardiology service on board Chronic A. fib Sick sinus syndrome Single-chamber pacemaker i Continue metoprolol 50 mg daily INR 1.7 coumadin 7.5mg po today Continue heparin drip for now until INR at goal (2-3) H/O CAD S/P CABG Continue statin,aspirin, Isosorbide and Lopressor Hyperlipidemia On Rosuvastatin Obstructive sleep apnea CPAP at bedtime CKD III Creatinine at baseline Monitor renal function Avoid Nephrotoxic agents as able Morbid obesity BMI:60.9 Counseling about weight loss Depression Continue home medications HTN Continue Lopressor and Imdur Monitor BP DVT Px: on Coumadin Disposition Will discharge once medically stable will order PT/OT evaluation Admission and Anticipated Discharge Date Admission Date: March 08, 2021 Subjective ff up for CHF, etc seen resting in bedside chair, sitting up comfortable states he feels ok overall breathing continues to improve no leg pain no other symptoms Review of Systems Review of Systems: all noted and reviewed , negative except for above Physical Exam Physical Exam: General- oriented x 3, not in distress, speaks in sentences with no effort or accessory muscle use Eyes- anicteric Neck- no JVD Lungs- mild rales at the bases, no wheezing Heart- normal rate, regular rhythm; no murmurs Abdomen- normal bowel sounds, nondistended, soft, nontender Extremities- no pretibial edema, no calf tenderness Neuro- alert, oriented x 3; no gross focal neurologic deficits Skin- warm & dry Results & Data Results & Data ([facility]) Vital Signs (Past 12 Hours) Vital Signs Temp Pulse Pulse Pulse Resp BP BP 03/12/21 15:50 36.8 C 75 20 127/78 03/12/21 14:55 67 03/12/21 11:05 68 18 115/89 03/12/21 08:00 03/12/21 07:22 36.8 C 64 20 135/82 Pulse Ox Pulse Ox 03/12/21 15:50 97 97 03/12/21 14:55 03/12/21 11:05 94 03/12/21 08:00 95 03/12/21 07:22 92 all noted and reviewed including below
[2021-03-12] MEDS: QUEtiapine FUMARATE 200 MG TAB PO SCH (21:07)
[2021-03-12] MEDS: ZOLPIDEM TARTRATE 5 MG TAB PO PRN (21:07)
[2021-03-13] MEDS: HEPARIN SODIUM/DEXTROSE 25,000 UNITS/500 ML BAG IV SCH ×4 (05:26→18:23)
[2021-03-13 06:42] LABS: Basophils # (auto) 0.04 K/uL (0-0.2); Basophils % (auto) 0.3 %; Eosinophils # (auto) 0.34 K/uL (0-0.5); Eosinophils % (auto) 2.8 %; Hematocrit (blood only) 38.5 % (42-52); Hemoglobin 12.2 g/dL (14.0-18.0); Immature Granulocytes # (auto) 0.18 K/uL (0.00-0.02); Immature Granulocytes % (auto) 1.5 %; Lymphocytes # (auto) 2.72 K/uL (1.2-3.4); Lymphocytes % (auto) 22.2 %; Mean Corpuscular Hemoglobin 27.7 pg (25-34); Mean Corpuscular Hgb Conc 31.7 g/dL (32-36); Mean Corpuscular Volume 87.5 fL (80-100); Mean Platelet Volume 10.4 fL (7.4-10.4); Monocytes % (auto) 9.8 %; Neutrophils # (auto) 7.75 K/uL (1.4-6.5); Neutrophils % (auto) 63.4 %; Platelet Count 238 K/uL (130-400); RDW Coefficient of Variation 17.1 % (11.5-14.5); RDW Standard Deviation 54.4 fL (36.4-46.3); White Blood Count 12.23 K/uL (4.8-10.8)
[2021-03-13 06:59] LABS: BUN Creatinine Ratio 14.3 (10-20); Calcium 9.4 mg/dl (8.5-10.1); Creatinine Clr Calc Pharmacy 74.9 ml/min; Est GFR (African American) 57.3 ml/min; Est GFR (Non-African American) 49.4 ml/min; Potassium 4.1 mmol/L (3.5-5.1)
[2021-03-13 07:09] LABS: INR 1.8 (0.9-1.1); Partial Thromboplastin Ratio 2.8; Prothrombin Time 17.5 Seconds (9.0-12.0)
[2021-03-13 07:16] LABS: Partial Thromboplastin Time 73.8 Seconds (21.0-31.0)
[2021-03-13] MEDS: POTASSIUM CHLORIDE CRTAB 20 MEQ TABCR PO SCH ×2 (08:29→20:49)
[2021-03-13] MEDS: oxyCODONE HCL IR 5 MG TAB (IMMEDIATE RELEASE) PO PRN ×2 (08:29→18:52)
[2021-03-13] MEDS: BUMETANIDE 1 MG in SYRINGE 0 ML IV SCH (08:30)
[2021-03-13] MEDS: METOPROLOL SUCC 50MG EXT REL TAB PO SCH (08:30)
[2021-03-13] MEDS: lamoTRIgine 100 MG TAB PO SCH ×2 (08:30→20:50)
[2021-03-13] MEDS: FERROUS SULFATE 325 MG TAB PO SCH (08:30)
[2021-03-13] MEDS: ARIPiprazole 5 MG TAB PO SCH (08:30)
[2021-03-13] MEDS: ISOSORBIDE MONO EXTENDED REL 30 MG TABCR PO SCH (08:30)
[2021-03-13] MEDS: TOPIRAMATE 25 MG TAB PO SCH ×2 (08:30→16:46)
[2021-03-13] MEDS: SPIRONOLACTONE 25 MG TAB PO SCH ×2 (08:30→16:47)
[2021-03-13] MEDS: GABAPENTIN 600 MG TAB PO SCH ×2 (08:30→20:50)
[2021-03-13] MEDS: ESCITALOPRAM OXALATE 10 MG TAB PO SCH (08:31)
[2021-03-13] MEDS: FLUTICASONE/VILANTEROL 200/25MCG 14 PUFFS/INHALER INH SCH (08:31)
[2021-03-13] MEDS: ROSUVASTATIN CALCIUM 20 MG TAB PO SCH (08:31)
[2021-03-13] MEDS: IPRATROPIUM BROMIDE NEB SOLN 0.02% 2.5 ML VIAL INH PRN ×2 (08:38→20:54)
[2021-03-13] MEDS: LEVALBUTEROL 1.25MG/0.5ML NEB INH PRN ×2 (08:38→20:55)
--- NOTE | 2021-03-13 10:56 | Cardiology Progress Note ---
Date of Service March 13, 2021 Assessment & Plan (1) Nonadherence to medication: (2) Dietary noncompliance: (3) Right-sided congestive heart failure: Plan: I believe the patient is euvolemic. I discontinued his IV diuretics and placed him back on his torsemide to 40 mg twice daily which he takes at home. I also DC'd the heparin drip as his INR is 1.8. Admission and Anticipated Discharge Date Admission Date: March 08, 2021 Subjective Patient is alert with no new complaints today. Review of Systems Review of Systems: Review of Systems: See HPI for pertinent positives. All other 10 point review of systems are negative. Physical Exam Physical Exam: General: no acute distress and stated age Head: normocephalic, no masses, lesions, tenderness or abnormalities Eyes: conjunctiva are pink and non-injected, sclera clear Neck: supple, no adenopathy, no bruits, normal jugular venous pulse, no hepatojugular reflux Chest: normal shape and normal respiratory effort Lungs: clear to auscultation and percussion Cardiac Exam: - regular rate & rhythm, no murmurs gallops or rubs - normal S1, normal S2 Pulses: 2(+) throughout Abdomen: abdomen soft, non-tender, no abnormal masses and no hepatosplenomegaly Musculoskeletal: no gait disturbance, no joint inflammation, no deforming arthritis Extremities: no edema and no cyanosis Neuro: grossly normal exam Results & Data ([facility]) Vital Signs (Past 12 Hours) Vital Signs Temp Pulse Pulse Pulse Resp BP Pulse Ox 03/13/21 08:39 70 18 96 03/13/21 08:00 03/13/21 07:18 36.6 C 70 19 112/75 94 03/13/21 03:57 64 20 98 03/13/21 02:44 36.6 C 65 21 127/73 93 03/13/21 00:00 03/12/21 23:53 36.5 C 69 18 140/76 98 03/12/21 23:35 75 18 95 Pulse Ox 03/13/21 08:39 03/13/21 08:00 95 03/13/21 07:18 03/13/21 03:57 03/13/21 02:44 03/13/21 00:00 97 03/12/21 23:53 03/12/21 23:35 Laboratory Results Laboratory Results - last 24 hr 03/12/21 03/13/21 03/13/21 20:10 06:21 06:21 WBC 12.23 H RBC 4.40 L Hgb 12.2 L Hct 38.5 L MCV 87.5 MCH 27.7 MCHC 31.7 L RDW Std Deviation 54.4 H RDW Coeff of Karlene 17.1 H Plt Count 238 MPV 10.4 Immature Gran % (Auto) 1.5 Neut % (Auto) 63.4 Lymph % (Auto) 22.2 Runnels % (Auto) 9.8 Eos % (Auto) 2.8 Baso % (Auto) 0.3 Neut # (Auto) 7.75 H Lymph # (Auto) 2.72 Runnels # (Auto) 1.20 H Eos # (Auto) 0.34 Baso # (Auto) 0.04 Immature Gran # (Auto) 0.18 H PT 17.5 H INR 1.8 H APTT 73.8 H* PTT Ratio 2.8 Sodium Potassium Chloride Carbon Dioxide Anion Gap BUN Creatinine Est Cr Clr Drug Dosing Est GFR ( Amer) Est GFR (Non-Af Amer) BUN/Creatinine Ratio Glucose POC Glucose 106 H Calcium 03/13/21 06:21 WBC RBC Hgb Hct MCV MCH MCHC RDW Std Deviation RDW Coeff of Karlene Plt Count MPV Immature Gran % (Auto) Neut % (Auto) Lymph % (Auto) Runnels % (Auto) Eos % (Auto) Baso % (Auto) Neut # (Auto) Lymph # (Auto) Runnels # (Auto) Eos # (Auto) Baso # (Auto) Immature Gran # (Auto) PT INR APTT PTT Ratio Sodium 137 Potassium 4.1 Chloride 105 Carbon Dioxide 28 Anion Gap 4.0 BUN 22 H Creatinine 1.52 H Est Cr Clr Drug Dosing 74.9 Est GFR ( Amer) 57.3 Est GFR (Non-Af Amer) 49.4 BUN/Creatinine Ratio 14.3 Glucose 92 POC Glucose Calcium 9.4 Medications Administered Current Inpatient Medications Acetaminophen (Acetaminophen 325 Mg Tab) 650 mg PO Q4H PRN PRN Reason: Pain or Fever Stop: 04/07/21 23:28 Last Admin: 03/12/21 07:32 Dose: 650 mg Documented by: Aripiprazole (A[facility]iprazole 5 Mg Tab) [facility] [place]: 04/08/21 08:59 Last Admin: 03/13/21 08:30 Dose: 5 mg Documented by: Escitalopram Oxalate (Escitalopram Oxalate 10 Mg Tab) 10 mg PO DAILY [facility] Stop: 04/08/21 08:59 Last Admin: 03/13/21 08:31 Dose: 10 mg Documented by: Ferrous Sulfate (Ferrous Sulfate 325 Mg Tab) 325 mg PO DAILY [facility] Stop: 04/08/21 08:59 Last Admin: 03/13/21 08:30 Dose: 325 mg Documented by: Fluticasone/Vilanterol (Fluticasone/Vilanterol 200/25mcg 14 Puffs/Inhaler) 1 puffs INH DAILY [facility]; Protocol Stop: 04/08/21 08:59 Last Admin: 03/13/21 08:31 Dose: 1 puffs Documented by: Gabapentin (Gabapentin 600 Mg Tab) 600 mg PO BID [facility] Stop: 04/08/21 00:00 Last Admin: 03/13/21 08:30 Dose: 600 mg Documented by: Ipratropium [place] (Ipratropium [place] Neb Soln 0.02% 2.5 Ml Vial) 0.5 mg INH Q4R PRN PRN Reason: SHORTNESS OF BREATH OR WHEEZIN Stop: 04/07/21 23:28 Last Admin: 03/13/21 08:38 Dose: 0.5 mg Documented by: Isosorbide Mononitrate (Isosorbide Runnels Extended Rel 30 Mg Tabcr) 30 mg PO QAM [facility] Stop: 04/08/21 08:59 Last Admin: 03/13/21 08:30 Dose: 30 mg Documented by: Lamotrigine (Lamotrigine 100 Mg Tab) 200 mg PO BID [facility] Stop: 04/08/21 00:00 Last Admin: 03/13/21 08:30 Dose: 200 mg Documented by: Levalbuterol HCl (Levalbuterol 1.25mg/0.5ml Neb) 1.25 mg INH Q4R PRN PRN Reason: SHORTNESS OF BREATH OR WHEEZIN Stop: 04/07/21 23:28 Last Admin: 03/13/21 08:38 Dose: 1.25 mg Documented by: Metoprolol Succinate (Metoprolol Succ 50mg Ext Rel Tab) 50 mg PO DAILY [facility] Stop: 04/08/21 08:59 Last Admin: 03/13/21 08:30 Dose: 50 mg Documented by: Nitroglycerin (Nitroglycerin Sl 0.4 Mg/Tab Tab) 0.4 mg SL UD PRN PRN Reason: Chest Pain Stop: 04/07/21 23:28 Nitroglycerin (Nitroglycerin Sl 0.4 Mg/Tab Tab) 0.4 mg SL UD PRN PRN Reason: Chest Pain Stop: 04/07/21 23:28 Oxycodone HCl (Oxycodone Hcl Ir 5 Mg Tab (Immediate Release)) 5 - 10 mg PO QID PRN PRN Reason: Pain Stop: 03/22/21 23:28 Last Admin: 03/13/21 08:29 Dose: 5 mg Documented by: Potassium Chloride (Potassium Chloride Crtab 20 Meq Tabcr) 20 meq PO BID CHRISTINE Stop: 04/08/21 00:00 Last Admin: 03/13/21 08:29 Dose: 20 meq Documented by: Promethazine HCl (Promethazine Hcl 25 Mg Tab) 12.5 mg PO Q6H PRN PRN Reason: Nausea And Vomiting Stop: 04/09/21 10:00 Quetiapine Fumarate (Quetiapine Fumarate 200 Mg Tab) 200 mg PO HS PRN PRN Reason: Sleep Stop: 04/07/21 23:28 Last Admin: 03/10/21 23:29 Dose: 200 mg Documented by: Quetiapine Fumarate (Quetiapine Fumarate 200 Mg Tab) 200 mg PO HS [facility] Stop: 04/10/21 20:59 Last Admin: 03/12/21 21:07 Dose: 200 mg Documented by: Rosuvastatin Calcium (Rosuvastatin Calcium 20 Mg Tab) 40 mg PO DAILY [facility] Stop: 04/08/21 08:59 Last Admin: 03/13/21 08:31 Dose: 40 mg Documented by: Spironolactone (Spironolactone 25 Mg Tab) 50 mg PO [id number] [facility] Stop: 04/08/21 00:00 Last Admin: 03/13/21 08:30 Dose: 50 mg Documented by: Topiramate (Topiramate 25 Mg Tab) 25 mg PO [id number] [facility] Stop: 04/08/21 00:00 Last Admin: 03/13/21 08:30 Dose: 25 mg Documented by: Torsemide (Torsemide 10 Mg Tab) 40 mg PO BID [facility] Stop: 09/06/21 20:59 Warfarin Sodium (Warfarin Sod 7.5 Mg Tab) 7.5 mg PO DAILY@1600 CHRISTINE Stop: 04/11/21 15:59 Last Admin: 03/12/21 15:55 Dose: 7.5 mg Documented by: Zolpidem Tartrate (Zolpidem Tartrate 5 Mg Tab) 5 mg PO HS PRN PRN Reason: Sleep Stop: 04/07/21 23:28 Last Admin: 03/12/21 21:07 Dose: 5 mg Documented by:
--- NOTE | 2021-03-13 14:33 | Hospitalist Progress Note ---
Date of Service March 13, 2021 Assessment & Plan (1) Right-sided congestive heart failure: Plan: Acute on chronic diastolic (congestive) heart failure negative 11 L Fluid balance so far Much improved Monitor NATHANIEL's Continue Bumex and Spironolactone Appreciate cardiology input and recommendation IV diuretics has been changed to oral Will increase ambulation and PT OT evaluation Chronic A. fib Sick sinus syndrome Single-chamber pacemaker i Continue metoprolol 50 mg daily INR 1.8 coumadin 7.5mg po today Heparin has been discontinued-monitor INR H/O CAD S/P CABG Continue statin,aspirin, Isosorbide and Lopressor Hyperlipidemia On Rosuvastatin Obstructive sleep apnea CPAP at bedtime CKD III Creatinine at baseline Monitor renal function Avoid Nephrotoxic agents as able Morbid obesity BMI:60.9 Counseling about weight loss Depression Continue home medications HTN Continue Lopressor and Imdur Monitor BP DVT Px: on Coumadin Disposition Will order PT and OT We will need to do steps O2 saturation test before discharge Admission and Anticipated Discharge Date Admission Date: March 08, 2021 Subjective 03/13/2021 The patient was seen and examined in telemetry unit He remained stable in bed but complains to have shortness of breath with minimal exertion He is saturating normally on room air at rest Denies any chest pain and/or palpitation, any fever and/or chills, any nausea and/or vomiting. Review of Systems Review of Systems: All systems reviewed and are unremarkable except as noted below Constitutional: Morbidly obese Respiratory: Shortness of breath on exertion Physical Exam Physical Exam: Lying in bed comfortably Constitutional: well developed, well nourished, + ill appearing and + morbidly obese Eyes: PERRL, conjunctivae normal, anicteric sclerae ENMT: external ear and nose normal, oropharynx normal Neck: trachea midline, no thyromegaly Respiratory: no respiratory distress Auscultation: + diminished lung sounds and + wheezes (Minimal wheezing bilaterally); no crackles Cardiovascular: Rate/Rhythm: regular rate and regular rhythm Heart Sounds: normal S1 and normal S2; no murmur Extremities: + edema (1-2+ edema bilaterally) Gastrointestinal (Abdomen): normal bowel sounds, soft, nontender, no hepatosplenomegaly Musculoskeletal: No acute arthritis in any joint Neurologic: Alert, awake and oriented x3 Lymphatic: no cervical or axillary lymphadenopathy Results & Data Results & Data ([facility]) Vital Signs (Past 12 Hours) Vital Signs Temp Pulse Pulse Pulse Resp BP Pulse Ox 03/13/21 08:39 70 18 96 03/13/21 08:00 03/13/21 07:18 36.6 C 70 19 112/75 94 03/13/21 03:57 64 20 98 03/13/21 02:44 36.6 C 65 21 127/73 93 Pulse Ox 03/13/21 08:39 03/13/21 08:00 95 03/13/21 07:18 03/13/21 03:57 03/13/21 02:44 Laboratory Results Short CBC 03/13/21 Range/Units 06:21 WBC 12.23 H (4.8-10.8) K/uL Hgb 12.2 L (14.0-18.0) g/dL Hct 38.5 L (42-52) % Plt Count 238 (130-400) K/uL BMP 03/13/21 06:21 Sodium 137 Potassium 4.1 Chloride 105 Carbon Dioxide 28 BUN 22 H Creatinine 1.52 H Glucose 92 Calcium 9.4 Medications Administered Current Inpatient Medications Acetaminophen (Acetaminophen 325 Mg Tab) 650 mg PO Q4H PRN PRN Reason: Pain or Fever Stop: 04/07/21 23:28 Last Admin: 03/12/21 07:32 Dose: 650 mg Documented by: Aripiprazole (Aripiprazole 5 Mg Tab) 5 mg PO QAM [facility] Stop: 04/08/21 08:59 Last Admin: 03/13/21 08:30 Dose: 5 mg Documented by: Escitalopram Oxalate (Escitalopram Oxalate 10 Mg Tab) 10 mg PO DAILY [facility] Stop: 04/08/21 08:59 Last Admin: 03/13/21 08:31 Dose: 10 mg Documented by: Ferrous Sulfate (Ferrous Sulfate 325 Mg Tab) 325 mg PO DAILY [facility] Stop: 04/08/21 08:59 Last Admin: 03/13/21 08:30 Dose: 325 mg Documented by: Fluticasone/Vilanterol (Fluticasone/Vilanterol 200/25mcg 14 Puffs/Inhaler) 1 puffs INH DAILY [facility]; Protocol Stop: 04/08/21 08:59 Last Admin: 03/13/21 08:31 Dose: 1 puffs Documented by: Gabapentin (Gabapentin 600 Mg Tab) 600 mg PO BID [facility] Stop: 04/08/21 00:00 Last Admin: 03/13/21 08:30 Dose: 600 mg Documented by: Ipratropium [place] (Ipratropium [place] Neb Soln 0.02% 2.5 Ml Vial) 0.5 mg INH Q4R PRN PRN Reason: SHORTNESS OF BREATH OR WHEEZIN Stop: 04/07/21 23:28 Last Admin: 03/13/21 08:38 Dose: 0.5 mg Documented by: Isosorbide Mononitrate (Isosorbide [place] Extended Rel 30 Mg Tabcr) 30 mg PO QAM [facility] Stop: 04/08/21 08:59 Last Admin: 03/13/21 08:30 Dose: 30 mg Documented by: Lamotrigine (Lamotrigine 100 Mg Tab) 200 mg PO BID [facility] Stop: 04/08/21 00:00 Last Admin: 03/13/21 08:30 Dose: 200 mg Documented by: Levalbuterol HCl (Levalbuterol 1.25mg/0.5ml Neb) 1.25 mg INH Q4R PRN PRN Reason: SHORTNESS OF BREATH OR WHEEZIN Stop: 04/07/21 23:28 Last Admin: 03/13/21 08:38 Dose: 1.25 mg Documented by: Metoprolol Succinate (Metoprolol Succ 50mg Ext Rel Tab) 50 mg PO DAILY [facility] Stop: 04/08/21 08:59 Last Admin: 03/13/21 08:30 Dose: 50 mg Documented by: Nitroglycerin (Nitroglycerin Sl 0.4 Mg/Tab Tab) 0.4 mg SL UD PRN PRN Reason: Chest Pain Stop: 04/07/21 23:28 Nitroglycerin (Nitroglycerin Sl 0.4 Mg/Tab Tab) 0.4 mg SL UD PRN PRN Reason: Chest Pain Stop: 04/07/21 23:28 Oxycodone HCl (Oxycodone Hcl Ir 5 Mg Tab (Immediate Release)) 5 - 10 mg PO QID PRN PRN Reason: Pain Stop: 03/22/21 23:28 Last Admin: 03/13/21 08:29 Dose: 5 mg Documented by: Potassium Chloride (Potassium Chloride Crtab 20 Meq Tabcr) 20 meq PO BID [facility] Stop: 04/08/21 00:00 Last Admin: 03/13/21 08:29 Dose: 20 meq Documented by: Promethazine HCl (Promethazine Hcl 25 Mg Tab) 12.5 mg PO Q6H PRN PRN Reason: Nausea And Vomiting Stop: 04/09/21 10:00 Quetiapine Fumarate (Quetiapine Fumarate 200 Mg Tab) 200 mg PO HS PRN PRN Reason: Sleep Stop: 04/07/21 23:28 Last Admin: 03/10/21 23:29 Dose: 200 mg Documented by: Quetiapine Fumarate (Quetiapine Fumarate 200 Mg Tab) 200 mg PO HS [facility] Stop: 04/10/21 20:59 Last Admin: 03/12/21 21:07 Dose: 200 mg Documented by: Rosuvastatin Calcium (Rosuvastatin Calcium 20 Mg Tab) 40 mg PO DAILY [facility] Stop: 04/08/21 08:59 Last Admin: 03/13/21 08:31 Dose: 40 mg Documented by: Spironolactone (Spironolactone 25 Mg Tab) 50 mg PO BID17 [facility] Stop: 04/08/21 00:00 Last Admin: 03/13/21 08:30 Dose: 50 mg Documented by: Topiramate (Topiramate 25 Mg Tab) 25 mg PO BID17 [facility] Stop: 04/08/21 00:00 Last Admin: 03/13/21 08:30 Dose: 25 mg Documented by: Torsemide (Torsemide 10 Mg Tab) 40 mg PO BID17 [facility] Stop: 04/12/21 16:59 Warfarin Sodium (Warfarin Sod 7.5 Mg Tab) 7.5 mg PO DAILY@1600 [facility] Stop: 04/11/21 15:59 Last Admin: 03/12/21 15:55 Dose: 7.5 mg Documented by: Zolpidem Tartrate (Zolpidem Tartrate 5 Mg Tab) 5 mg PO HS PRN PRN Reason: Sleep Stop: 04/07/21 23:28 Last Admin: 03/12/21 21:07 Dose: 5 mg Documented by:
[2021-03-13] MEDS: WARFARIN SOD 7.5 MG TAB PO SCH (16:46)
[2021-03-13] MEDS: TORSEMIDE 10 MG TAB PO SCH (16:47)
[2021-03-13] MEDS: QUEtiapine FUMARATE 200 MG TAB PO SCH (20:50)
[2021-03-13] MEDS: ZOLPIDEM TARTRATE 5 MG TAB PO PRN (22:53)
[2021-03-14 05:54] LABS: Basophils # (auto) 0.04 K/uL (0-0.2); Basophils % (auto) 0.3 %; Eosinophils % (auto) 2.6 %; Hematocrit (blood only) 37.1 % (42-52); Immature Granulocytes # (auto) 0.15 K/uL (0.00-0.02); Immature Granulocytes % (auto) 1.3 %; Lymphocytes # (auto) 2.32 K/uL (1.2-3.4); Lymphocytes % (auto) 20.3 %; Mean Corpuscular Hemoglobin 28.2 pg (25-34); Mean Corpuscular Hgb Conc 32.3 g/dL (32-36); Mean Corpuscular Volume 87.3 fL (80-100); Mean Platelet Volume 10.1 fL (7.4-10.4); Monocytes # (auto) 1.06 K/uL (0.11-0.59); Monocytes % (auto) 9.3 %; Neutrophils # (auto) 7.58 K/uL (1.4-6.5); Neutrophils % (auto) 66.2 %; Platelet Count 211 K/uL (130-400); RDW Coefficient of Variation 17.2 % (11.5-14.5); RDW Standard Deviation 54.5 fL (36.4-46.3); Red Blood Count 4.25 M/uL (4.7-6.1); White Blood Count 11.45 K/uL (4.8-10.8)
[2021-03-14 06:04] LABS: INR 2.1 (0.9-1.1)
[2021-03-14 06:26] LABS: BUN Creatinine Ratio 14.3 (10-20); Calcium 9.1 mg/dl (8.5-10.1); Creatinine Clr Calc Pharmacy 76.6 ml/min; Est GFR (African American) 58.7 ml/min; Est GFR (Non-African American) 50.6 ml/min; Potassium 4.7 mmol/L (3.5-5.1)
[2021-03-14] MEDS: SPIRONOLACTONE 25 MG TAB PO SCH ×2 (08:15→17:21)
[2021-03-14] MEDS: TOPIRAMATE 25 MG TAB PO SCH ×2 (08:15→17:21)
[2021-03-14] MEDS: TORSEMIDE 10 MG TAB PO SCH ×2 (08:15→17:21)
[2021-03-14] MEDS: METOPROLOL SUCC 50MG EXT REL TAB PO SCH (08:16)
[2021-03-14] MEDS: ISOSORBIDE MONO EXTENDED REL 30 MG TABCR PO SCH (08:16)
[2021-03-14] MEDS: lamoTRIgine 100 MG TAB PO SCH ×2 (08:16→21:09)
[2021-03-14] MEDS: ESCITALOPRAM OXALATE 10 MG TAB PO SCH (08:16)
[2021-03-14] MEDS: FERROUS SULFATE 325 MG TAB PO SCH (08:16)
[2021-03-14] MEDS: ROSUVASTATIN CALCIUM 20 MG TAB PO SCH (08:16)
[2021-03-14] MEDS: GABAPENTIN 600 MG TAB PO SCH ×2 (08:16→21:09)
[2021-03-14] MEDS: FLUTICASONE/VILANTEROL 200/25MCG 14 PUFFS/INHALER INH SCH (08:17)
[2021-03-14] MEDS: POTASSIUM CHLORIDE CRTAB 20 MEQ TABCR PO SCH ×2 (08:21→22:36)
[2021-03-14] MEDS: ARIPiprazole 5 MG TAB PO SCH (08:33)
--- NOTE | 2021-03-14 10:00 | Cardiology Progress Note ---
Date of Service March 14, 2021 Assessment & Plan (1) Nonadherence to medication: (2) Dietary noncompliance: (3) Right-sided congestive heart failure: Plan: DC the patient's [place] today. I have asked physical therapy to see him to get him up and moving. Reduced his warfarin to his home dose. I think discharge planning and actual discharge per internal medicine. Admission and Anticipated Discharge Date Admission Date: March 08, 2021 Subjective The patient had an uneventful night. He is moving around the room. He needs more activity and physical therapy. Review of Systems Review of Systems: Review of Systems: See HPI for pertinent positives. All other 10 point review of systems are negative. Physical Exam Physical Exam: General: no acute distress and stated age Head: normocephalic, no masses, lesions, tenderness or abnormalities Eyes: conjunctiva are pink and non-injected, sclera clear Neck: supple, no adenopathy, no bruits, normal jugular venous pulse, no hepatojugular reflux Chest: normal shape and normal respiratory effort Lungs: clear to auscultation and percussion Cardiac Exam: - regular rate & rhythm, no murmurs gallops or rubs - normal S1, normal S2 Pulses: 2(+) throughout Abdomen: abdomen soft, non-tender, no abnormal masses and no hepatosplenomegaly Musculoskeletal: no gait disturbance, no joint inflammation, no deforming arthritis Extremities: no edema and no cyanosis Neuro: grossly normal exam Results & Data ([facility]) Vital Signs (Past 12 Hours) Vital Signs Temp Pulse Pulse Pulse Resp BP Pulse Ox 03/14/21 07:41 74 16 167/95 H 92 03/14/21 04:15 36.9 C 85 18 117/60 97 03/14/21 03:16 36.8 C 65 21 122/71 03/14/21 03:05 65 20 95 03/14/21 02:25 65 03/14/21 00:00 03/13/21 23:45 64 18 96 03/13/21 23:03 36.8 C 69 17 133/88 93 Pulse Ox 03/14/21 07:41 03/14/21 04:15 03/14/21 03:16 03/14/21 03:05 03/14/21 02:25 03/14/21 00:00 96 03/13/21 23:45 03/13/21 23:03 Laboratory Results Laboratory Results - last 24 hr 03/14/21 03/14/21 03/14/21 05:36 05:36 05:36 WBC 11.45 H RBC 4.25 L Hgb 12.0 L Hct 37.1 L MCV 87.3 MCH 28.2 MCHC 32.3 RDW Std Deviation 54.5 H RDW Coeff of Karlene 17.2 H Plt Count 211 MPV 10.1 Immature Gran % (Auto) 1.3 Neut % (Auto) 66.2 Lymph % (Auto) 20.3 [place] % (Auto) 9.3 Eos % (Auto) 2.6 Baso % (Auto) 0.3 Neut # (Auto) 7.58 H Lymph # (Auto) 2.32 [place] # (Auto) 1.06 H Eos # (Auto) 0.30 Baso # (Auto) 0.04 Immature Gran # (Auto) 0.15 H PT 20.0 H INR 2.1 H Sodium 137 Potassium 4.7 Chloride 107 Carbon Dioxide 27 Anion Gap 3.0 BUN 21 H Creatinine 1.49 H Est Cr Clr Drug Dosing 76.6 Est GFR ( Amer) 58.7 Est GFR (Non-Af Amer) 50.6 BUN/Creatinine Ratio 14.3 Glucose 91 Calcium 9.1 Medications Administered Current Inpatient Medications Acetaminophen (Acetaminophen 325 Mg Tab) 650 mg PO Q4H PRN PRN Reason: Pain or Fever Stop: 04/07/21 23:28 Last Admin: 03/12/21 07:32 Dose: 650 mg Documented by: Aripiprazole (Aripiprazole 5 Mg Tab) 5 mg PO QAM [facility] Stop: 04/08/21 08:59 Last Admin: 03/14/21 08:33 Dose: 5 mg Documented by: Escitalopram Oxalate (Escitalopram Oxalate 10 Mg Tab) 10 mg PO DAILY [facility] Stop: 04/08/21 08:59 Last Admin: 03/14/21 08:16 Dose: 10 mg Documented by: Ferrous Sulfate (Ferrous Sulfate 325 Mg Tab) 325 mg PO DAILY [facility] Stop: 04/08/21 08:59 Last Admin: 03/14/21 08:16 Dose: 325 mg Documented by: Fluticasone/Vilanterol (Fluticasone/Vilanterol 200/25mcg 14 Puffs/Inhaler) 1 puffs INH DAILY [facility]; Protocol Stop: 04/08/21 08:59 Last Admin: 03/14/21 08:17 Dose: 1 puffs Documented by: Gabapentin (Gabapentin 600 Mg Tab) 600 mg PO BID [facility] Stop: 04/08/21 00:00 Last Admin: 03/14/21 08:16 Dose: 600 mg Documented by: Ipratropium [place] (Ipratropium [place] Neb Soln 0.02% 2.5 Ml Vial) 0.5 mg INH Q4R PRN PRN Reason: SHORTNESS OF BREATH OR WHEEZIN Stop: 04/07/21 23:28 Last Admin: 03/13/21 20:54 Dose: 0.5 mg Documented by: Isosorbide Mononitrate (Isosorbide [place] Extended Rel 30 Mg Tabcr) 30 mg PO QAM [facility] Stop: 04/08/21 08:59 Last Admin: 03/14/21 08:16 Dose: 30 mg Documented by: Lamotrigine (Lamotrigine 100 Mg Tab) 200 mg PO BID [facility] Stop: 04/08/21 00:00 Last Admin: 03/14/21 08:16 Dose: 200 mg Documented by: Levalbuterol HCl (Levalbuterol 1.25mg/0.5ml Neb) 1.25 mg INH Q4R PRN PRN Reason: SHORTNESS OF BREATH OR WHEEZIN Stop: 04/07/21 23:28 Last Admin: 03/13/21 20:55 Dose: 1.25 mg Documented by: Metoprolol Succinate (Metoprolol Succ 50mg Ext Rel Tab) 50 mg PO DAILY [facility] Stop: 04/08/21 08:59 Last Admin: 03/14/21 08:16 Dose: 50 mg Documented by: Nitroglycerin (Nitroglycerin Sl 0.4 Mg/Tab Tab) 0.4 mg SL UD PRN PRN Reason: Chest Pain Stop: 04/07/21 23:28 Nitroglycerin (Nitroglycerin Sl 0.4 Mg/Tab Tab) 0.4 mg SL UD PRN PRN Reason: Chest Pain Stop: 04/07/21 23:28 Oxycodone HCl (Oxycodone Hcl Ir 5 Mg Tab (Immediate Release)) 5 - 10 mg PO QID PRN PRN Reason: Pain Stop: 03/22/21 23:28 Last Admin: 03/13/21 18:52 Dose: 10 mg Documented by: Potassium Chloride (Potassium Chloride Crtab 20 Meq Tabcr) 20 meq PO BID [facility] Stop: 04/08/21 00:00 Last Admin: 03/14/21 08:21 Dose: 20 meq Documented by: Promethazine HCl (Promethazine Hcl 25 Mg Tab) 12.5 mg PO Q6H PRN PRN Reason: Nausea And Vomiting Stop: 04/09/21 10:00 Quetiapine Fumarate (Quetiapine Fumarate 200 Mg Tab) 200 mg PO HS PRN PRN Reason: Sleep Stop: 04/07/21 23:28 Last Admin: 03/10/21 23:29 Dose: 200 mg Documented by: Quetiapine Fumarate (Quetiapine Fumarate 200 Mg Tab) 200 mg PO HS [facility] Stop: 04/10/21 20:59 Last Admin: 03/13/21 20:50 Dose: 200 mg Documented by: Rosuvastatin Calcium (Rosuvastatin Calcium 20 Mg Tab) 40 mg PO DAILY [facility] Stop: 04/08/21 08:59 Last Admin: 03/14/21 08:16 Dose: 40 mg Documented by: Spironolactone (Spironolactone 25 Mg Tab) 50 mg PO BID17 [facility] Stop: 04/08/21 00:00 Last Admin: 03/14/21 08:15 Dose: 50 mg Documented by: Topiramate (Topiramate 25 Mg Tab) 25 mg PO BID17 [facility] Stop: 04/08/21 00:00 Last Admin: 03/14/21 08:15 Dose: 25 mg Documented by: Torsemide (Torsemide 10 Mg Tab) 40 mg PO BID17 [facility] Stop: 04/12/21 16:59 Last Admin: 03/14/21 08:15 Dose: 40 mg Documented by: Warfarin Sodium (Warfarin Sod 5 Mg Tab) 5 mg PO DAILY@1600 [facility] Stop: 04/13/21 15:59 Zolpidem Tartrate (Zolpidem Tartrate 5 Mg Tab) 5 mg PO HS PRN PRN Reason: Sleep Stop: 04/07/21 23:28 Last Admin: 03/13/21 22:53 Dose: 5 mg Documented by:
[2021-03-14] MEDS: oxyCODONE HCL IR 5 MG TAB (IMMEDIATE RELEASE) PO PRN ×3 (11:16→21:09)
--- NOTE | 2021-03-14 13:25 | Hospitalist Progress Note ---
Date of Service March 14, 2021 Assessment & Plan (1) Right-sided congestive heart failure: Plan: Acute on chronic diastolic (congestive) heart failure negative 13 L Fluid balance so far Much improved and denies any symptoms at rest Continue Bumex and Spironolactone Appreciate cardiology input and recommendation IV diuretics has been changed to oral Will increase ambulation and PT OT evaluation Likely discharge tomorrow Chronic A. fib Sick sinus syndrome Single-chamber pacemaker i Continue metoprolol 50 mg daily INR 1.8 Received 7.5 mg Coumadin yesterday INR is 2.1 today We will continue INR 5 mg on discharge with coagulation clinic appointment H/O CAD S/P CABG Continue statin,aspirin, Isosorbide and Lopressor Hyperlipidemia On Rosuvastatin Obstructive sleep apnea CPAP at bedtime CKD III Creatinine at baseline Monitor renal function Avoid Nephrotoxic agents as able Morbid obesity BMI:60.9 Counseling about weight loss Depression Continue home medications HTN Continue Lopressor and Imdur Monitor BP DVT Px: on Coumadin Disposition Will order PT and OT We will need to do steps O2 saturation test before discharge We will have nocturnal pulse oximetry today Admission and Anticipated Discharge Date Admission Date: March 08, 2021 Subjective 03/13/2021 The patient was seen and examined in telemetry unit He remained stable in bed but complains to have shortness of breath with minimal exertion He is saturating normally on room air at rest Denies any chest pain and/or palpitation, any fever and/or chills, any nausea and/or vomiting. 03/14/2021 The patient was seen and examined in telemetry unit He has been feeling much better He is at 13 L negative balance as of today Denies any significant symptoms Review of Systems Review of Systems: All systems reviewed and are unremarkable except as noted below Constitutional: Morbidly obese Respiratory: Shortness of breath on exertion Physical Exam Physical Exam: Lying in bed comfortably Constitutional: well developed, well nourished, + ill appearing and + morbidly obese Eyes: PERRL, conjunctivae normal, anicteric sclerae ENMT: external ear and nose normal, oropharynx normal Neck: trachea midline, no thyromegaly Respiratory: no respiratory distress Auscultation: + diminished lung sounds; no crackles and no wheezes (Minimal wheezing bilaterally) Cardiovascular: Rate/Rhythm: regular rate and regular rhythm Heart Sounds: normal S1 and normal S2; no murmur Extremities: + edema (1-2+ edema bilaterally) Gastrointestinal (Abdomen): normal bowel sounds, soft, nontender, no hepatosplenomegaly Musculoskeletal: No acute arthritis in any joint Neurologic: Alert, awake and oriented x3 Lymphatic: no cervical or axillary lymphadenopathy Results & Data Results & Data ([facility]) Vital Signs (Past 12 Hours) Vital Signs Temp Pulse Pulse Pulse Resp BP Pulse Ox 03/14/21 07:41 74 16 167/95 H 92 03/14/21 04:15 36.9 C 85 18 117/60 97 03/14/21 03:16 36.8 C 65 21 122/71 03/14/21 03:05 65 20 95 03/14/21 02:25 65 Laboratory Results Short CBC 03/14/21 Range/Units 05:36 WBC 11.45 H (4.8-10.8) K/uL Hgb 12.0 L (14.0-18.0) g/dL Hct 37.1 L (42-52) % Plt Count 211 (130-400) K/uL BMP 03/14/21 05:36 Sodium 137 Potassium 4.7 Chloride 107 Carbon Dioxide 27 BUN 21 H Creatinine 1.49 H Glucose 91 Calcium 9.1 Medications Administered Current Inpatient Medications Acetaminophen (Acetaminophen 325 Mg Tab) 650 mg PO Q4H PRN PRN Reason: Pain or Fever Stop: 04/07/21 23:28 Last Admin: 03/12/21 07:32 Dose: 650 mg Documented by: Aripiprazole (Aripiprazole 5 Mg Tab) 5 mg PO QAM [facility] Stop: 04/08/21 08:59 Last Admin: 03/14/21 08:33 Dose: 5 mg Documented by: Escitalopram Oxalate (Escitalopram Oxalate 10 Mg Tab) 10 mg PO DAILY [facility] Stop: 04/08/21 08:59 Last Admin: 03/14/21 08:16 Dose: 10 mg Documented by: Ferrous Sulfate (Ferrous Sulfate 325 Mg Tab) 325 mg PO DAILY [facility] Stop: 04/08/21 08:59 Last Admin: 03/14/21 08:16 Dose: 325 mg Documented by: Fluticasone/Vilanterol (Fluticasone/Vilanterol 200/25mcg 14 Puffs/Inhaler) 1 puffs INH DAILY [facility]; Protocol Stop: 04/08/21 08:59 Last Admin: 03/14/21 08:17 Dose: 1 puffs Documented by: Gabapentin (Gabapentin 600 Mg Tab) 600 mg PO BID [facility] Stop: 04/08/21 00:00 Last Admin: 03/14/21 08:16 Dose: 600 mg Documented by: Ipratropium [place] (Ipratropium [place] Neb Soln 0.02% 2.5 Ml Vial) 0.5 mg INH Q4R PRN PRN Reason: SHORTNESS OF BREATH OR WHEEZIN Stop: 04/07/21 23:28 Last Admin: 03/13/21 20:54 Dose: 0.5 mg Documented by: Isosorbide Mononitrate (Isosorbide [place] Extended Rel 30 Mg Tabcr) 30 mg PO QAM [facility] Stop: 04/08/21 08:59 Last Admin: 03/14/21 08:16 Dose: 30 mg Documented by: Lamotrigine (Lamotrigine 100 Mg Tab) 200 mg PO BID [facility] Stop: 04/08/21 00:00 Last Admin: 03/14/21 08:16 Dose: 200 mg Documented by: Levalbuterol HCl (Levalbuterol 1.25mg/0.5ml Neb) 1.25 mg INH Q4R PRN PRN Reason: SHORTNESS OF BREATH OR WHEEZIN Stop: 04/07/21 23:28 Last Admin: 03/13/21 20:55 Dose: 1.25 mg Documented by: Metoprolol Succinate (Metoprolol Succ 50mg Ext Rel Tab) 50 mg PO DAILY [facility] Stop: 04/08/21 08:59 Last Admin: 03/14/21 08:16 Dose: 50 mg Documented by: Nitroglycerin (Nitroglycerin Sl 0.4 Mg/Tab Tab) 0.4 mg SL UD PRN PRN Reason: Chest Pain Stop: 04/07/21 23:28 Nitroglycerin (Nitroglycerin Sl 0.4 Mg/Tab Tab) 0.4 mg SL UD PRN PRN Reason: Chest Pain Stop: 04/07/21 23:28 Oxycodone HCl (Oxycodone Hcl Ir 5 Mg Tab (Immediate Release)) 5 - 10 mg PO QID PRN PRN Reason: Pain Stop: 03/22/21 23:28 Last Admin: 03/14/21 11:16 Dose: 10 mg Documented by: Potassium Chloride (Potassium Chloride Crtab 20 Meq Tabcr) 20 meq PO BID [facility] Stop: 04/08/21 00:00 Last Admin: 03/14/21 08:21 Dose: 20 meq Documented by: Promethazine HCl (Promethazine Hcl 25 Mg Tab) 12.5 mg PO Q6H PRN PRN Reason: Nausea And Vomiting Stop: 04/09/21 10:00 Quetiapine Fumarate (Quetiapine Fumarate 200 Mg Tab) 200 mg PO HS PRN PRN Reason: Sleep Stop: 04/07/21 23:28 Last Admin: 03/10/21 23:29 Dose: 200 mg Documented by: Quetiapine Fumarate (Quetiapine Fumarate 200 Mg Tab) 200 mg PO HS [facility] Stop: 04/10/21 20:59 Last Admin: 03/13/21 20:50 Dose: 200 mg Documented by: Rosuvastatin Calcium (Rosuvastatin Calcium 20 Mg Tab) 40 mg PO DAILY [facility] Stop: 04/08/21 08:59 Last Admin: 03/14/21 08:16 Dose: 40 mg Documented by: Spironolactone (Spironolactone 25 Mg Tab) 50 mg PO BID17 [facility] Stop: 04/08/21 00:00 Last Admin: 03/14/21 08:15 Dose: 50 mg Documented by: Topiramate (Topiramate 25 Mg Tab) 25 mg PO BID17 [facility] Stop: 04/08/21 00:00 Last Admin: 03/14/21 08:15 Dose: 25 mg Documented by: Torsemide (Torsemide 10 Mg Tab) 40 mg PO BID17 [facility] Stop: 04/12/21 16:59 Last Admin: 03/14/21 08:15 Dose: 40 mg Documented by: Warfarin Sodium (Warfarin Sod 5 Mg Tab) 5 mg PO DAILY@1600 [facility] Stop: 04/13/21 15:59 Zolpidem Tartrate (Zolpidem Tartrate 5 Mg Tab) 5 mg PO HS PRN PRN Reason: Sleep Stop: 04/07/21 23:28 Last Admin: 03/13/21 22:53 Dose: 5 mg Documented by:
[2021-03-14] MEDS: IPRATROPIUM BROMIDE NEB SOLN 0.02% 2.5 ML VIAL INH PRN (14:53)
[2021-03-14] MEDS: LEVALBUTEROL 1.25MG/0.5ML NEB INH PRN (14:53)
[2021-03-14] MEDS ORDERED: WARFARIN SOD 5 MG TAB PO SCH (16:00)
[2021-03-14] MEDS: QUEtiapine FUMARATE 200 MG TAB PO SCH (22:36)
[2021-03-14] MEDS: ZOLPIDEM TARTRATE 5 MG TAB PO PRN (22:36)
[2021-03-15 06:39] LABS: Basophils # (auto) 0.06 K/uL (0-0.2); Basophils % (auto) 0.5 %; Eosinophils # (auto) 0.34 K/uL (0-0.5); Eosinophils % (auto) 2.9 %; Hemoglobin 12.2 g/dL (14.0-18.0); Immature Granulocytes % (auto) 1.7 %; Lymphocytes # (auto) 2.74 K/uL (1.2-3.4); Lymphocytes % (auto) 23.4 %; Mean Corpuscular Hemoglobin 27.9 pg (25-34); Mean Corpuscular Hgb Conc 32.1 g/dL (32-36); Mean Corpuscular Volume 86.8 fL (80-100); Mean Platelet Volume 10.1 fL (7.4-10.4); Monocytes # (auto) 1.19 K/uL (0.11-0.59); Monocytes % (auto) 10.2 %; Neutrophils # (auto) 7.17 K/uL (1.4-6.5); Neutrophils % (auto) 61.3 %; Platelet Count 216 K/uL (130-400); RDW Coefficient of Variation 17.2 % (11.5-14.5); RDW Standard Deviation 53.8 fL (36.4-46.3); Red Blood Count 4.38 M/uL (4.7-6.1)
[2021-03-15 07:07] LABS: INR 2.1 (0.9-1.1); Prothrombin Time 20.5 Seconds (9.0-12.0)
[2021-03-15 07:31] LABS: BUN Creatinine Ratio 15.1 (10-20); Calcium 9.4 mg/dl (8.5-10.1); Creatinine Clr Calc Pharmacy 74.9 ml/min; Est GFR (African American) 57.8 ml/min; Est GFR (Non-African American) 49.8 ml/min; Potassium 3.9 mmol/L (3.5-5.1)
[2021-03-15] MEDS: IPRATROPIUM BROMIDE NEB SOLN 0.02% 2.5 ML VIAL INH PRN (07:46)
[2021-03-15] MEDS: LEVALBUTEROL 1.25MG/0.5ML NEB INH PRN (07:46)
[2021-03-15] MEDS: GABAPENTIN 600 MG TAB PO SCH (08:19)
[2021-03-15] MEDS: ARIPiprazole 5 MG TAB PO SCH (08:19)
[2021-03-15] MEDS: FERROUS SULFATE 325 MG TAB PO SCH (08:19)
[2021-03-15] MEDS: ISOSORBIDE MONO EXTENDED REL 30 MG TABCR PO SCH (08:19)
[2021-03-15] MEDS: METOPROLOL SUCC 50MG EXT REL TAB PO SCH (08:19)
[2021-03-15] MEDS: SPIRONOLACTONE 25 MG TAB PO SCH (08:19)
[2021-03-15] MEDS: TOPIRAMATE 25 MG TAB PO SCH (08:20)
[2021-03-15] MEDS: lamoTRIgine 100 MG TAB PO SCH (08:20)
[2021-03-15] MEDS: TORSEMIDE 10 MG TAB PO SCH (08:20)
[2021-03-15] MEDS: ESCITALOPRAM OXALATE 10 MG TAB PO SCH (08:20)
[2021-03-15] MEDS: ROSUVASTATIN CALCIUM 20 MG TAB PO SCH (08:20)
[2021-03-15] MEDS: POTASSIUM CHLORIDE CRTAB 20 MEQ TABCR PO SCH (08:26)
--- NOTE | 2021-03-15 09:44 | Cardiology Progress Note ---
Date of Service March 15, 2021 Assessment & Plan (1) Nonadherence to medication: (2) Dietary noncompliance: (3) Right-sided congestive heart failure: Plan: The patient looks good today. He is up walking the hallways. He needs a two- step study but otherwise I think he could be ready for discharge. I will arrange follow-up with our clinic. Admission and Anticipated Discharge Date Admission Date: March 08, 2021 Subjective Patient is up walking the hallways. No new complaints. Review of Systems Review of Systems: Review of Systems: See HPI for pertinent positives. All other 10 point review of systems are negative. Physical Exam Physical Exam: General: no acute distress and stated age Head: normocephalic, no masses, lesions, tenderness or abnormalities Eyes: conjunctiva are pink and non-injected, sclera clear Neck: supple, no adenopathy, no bruits, normal jugular venous pulse, no hepatojugular reflux Chest: normal shape and normal respiratory effort Lungs: clear to auscultation and percussion Cardiac Exam: - regular rate & rhythm, no murmurs gallops or rubs - normal S1, normal S2 Pulses: 2(+) throughout Abdomen: abdomen soft, non-tender, no abnormal masses and no hepatosplenomegaly Musculoskeletal: no gait disturbance, no joint inflammation, no deforming arthritis Extremities: no edema and no cyanosis Neuro: grossly normal exam Results & Data ([facility]) Vital Signs (Past 12 Hours) Vital Signs Temp Pulse Pulse Pulse Pulse Resp BP 03/15/21 07:47 78 19 03/15/21 07:20 36.5 C 73 18 120/75 03/15/21 03:25 03/15/21 03:23 36.4 C L 86 18 112/76 03/15/21 00:45 68 03/15/21 00:00 63 03/14/21 23:12 36.8 C 68 19 131/70 Pulse Ox Pulse Ox 03/15/21 07:47 91 03/15/21 07:20 92 03/15/21 03:25 95 03/15/21 03:23 91 03/15/21 00:45 89 L 03/15/21 00:00 03/14/21 23:12 94 Laboratory Results Laboratory Results - last 24 hr 03/15/21 03/15/21 03/15/21 06:27 06:27 06:27 WBC 11.70 H RBC 4.38 L Hgb 12.2 L Hct 38.0 L MCV 86.8 MCH 27.9 MCHC 32.1 RDW Std Deviation 53.8 H RDW Coeff of Karlene 17.2 H Plt Count 216 MPV 10.1 Immature Gran % (Auto) 1.7 Neut % (Auto) 61.3 Lymph % (Auto) 23.4 [place] % (Auto) 10.2 Eos % (Auto) 2.9 Baso % (Auto) 0.5 Neut # (Auto) 7.17 H Lymph # (Auto) 2.74 [place] # (Auto) 1.19 H Eos # (Auto) 0.34 Baso # (Auto) 0.06 Immature Gran # (Auto) 0.20 H PT 20.5 H INR 2.1 H Sodium 135 L Potassium 3.9 D Chloride 103 Carbon Dioxide 27 Anion Gap 5.0 BUN 23 H Creatinine 1.51 H Est Cr Clr Drug Dosing 74.9 Est GFR ( Amer) 57.8 Est GFR (Non-Af Amer) 49.8 BUN/Creatinine Ratio 15.1 Glucose 87 Calcium 9.4 Medications Administered Current Inpatient Medications Acetaminophen (Acetaminophen 325 Mg Tab) 650 mg PO Q4H PRN PRN Reason: Pain or Fever Stop: 04/07/21 23:28 Last Admin: 03/12/21 07:32 Dose: 650 mg Documented by: Aripiprazole (Aripiprazole 5 Mg Tab) 5 mg PO QAM [facility] Stop: 04/08/21 08:59 Last Admin: 03/15/21 08:19 Dose: 5 mg Documented by: Escitalopram Oxalate (Escitalopram Oxalate 10 Mg Tab) 10 mg PO DAILY [facility] Stop: 04/08/21 08:59 Last Admin: 03/15/21 08:20 Dose: 10 mg Documented by: Ferrous Sulfate (Ferrous Sulfate 325 Mg Tab) 325 mg PO DAILY [facility] Stop: 04/08/21 08:59 Last Admin: 03/15/21 08:19 Dose: 325 mg Documented by: Fluticasone/Vilanterol (Fluticasone/Vilanterol 200/25mcg 14 Puffs/Inhaler) 1 puffs INH DAILY [facility]; Protocol Stop: 04/08/21 08:59 Last Admin: 03/14/21 08:17 Dose: 1 puffs Documented by: Gabapentin (Gabapentin 600 Mg Tab) 600 mg PO BID [facility] Stop: 04/08/21 00:00 Last Admin: 03/15/21 08:19 Dose: 600 mg Documented by: Ipratropium [place] (Ipratropium [place] Neb Soln 0.02% 2.5 Ml Vial) 0.5 mg INH Q4R PRN PRN Reason: SHORTNESS OF BREATH OR WHEEZIN Stop: 04/07/21 23:28 Last Admin: 03/15/21 07:46 Dose: 0.5 mg Documented by: Isosorbide Mononitrate (Isosorbide [place] Extended Rel 30 Mg Tabcr) 30 mg PO QAM [facility] Stop: 04/08/21 08:59 Last Admin: 03/15/21 08:19 Dose: 30 mg Documented by: Lamotrigine (Lamotrigine 100 Mg Tab) 200 mg PO BID [facility] Stop: 04/08/21 00:00 Last Admin: 03/15/21 08:20 Dose: 200 mg Documented by: Levalbuterol HCl (Levalbuterol 1.25mg/0.5ml Neb) 1.25 mg INH Q4R PRN PRN Reason: SHORTNESS OF BREATH OR WHEEZIN Stop: 04/07/21 23:28 Last Admin: 03/15/21 07:46 Dose: 1.25 mg Documented by: Metoprolol Succinate (Metoprolol Succ 50mg Ext Rel Tab) 50 mg PO DAILY [facility] Stop: 04/08/21 08:59 Last Admin: 03/15/21 08:19 Dose: 50 mg Documented by: Nitroglycerin (Nitroglycerin Sl 0.4 Mg/Tab Tab) 0.4 mg SL UD PRN PRN Reason: Chest Pain Stop: 04/07/21 23:28 Nitroglycerin (Nitroglycerin Sl 0.4 Mg/Tab Tab) 0.4 mg SL UD PRN PRN Reason: Chest Pain Stop: 04/07/21 23:28 Oxycodone HCl (Oxycodone Hcl Ir 5 Mg Tab (Immediate Release)) 5 - 10 mg PO QID PRN PRN Reason: Pain Stop: 03/22/21 23:28 Last Admin: 03/14/21 21:09 Dose: 10 mg Documented by: Potassium Chloride (Potassium Chloride Crtab 20 Meq Tabcr) 20 meq PO BID [facility] Stop: 04/08/21 00:00 Last Admin: 03/15/21 08:26 Dose: 20 meq Documented by: Promethazine HCl (Promethazine Hcl 25 Mg Tab) 12.5 mg PO Q6H PRN PRN Reason: Nausea And Vomiting Stop: 04/09/21 10:00 Quetiapine Fumarate (Quetiapine Fumarate 200 Mg Tab) 200 mg PO HS PRN PRN Reason: Sleep Stop: 04/07/21 23:28 Last Admin: 03/10/21 23:29 Dose: 200 mg Documented by: Quetiapine Fumarate (Quetiapine Fumarate 200 Mg Tab) 200 mg PO HS [facility] Stop: 04/10/21 20:59 Last Admin: 03/14/21 22:36 Dose: 200 mg Documented by: Rosuvastatin Calcium (Rosuvastatin Calcium 20 Mg Tab) 40 mg PO DAILY [facility] Stop: 04/08/21 08:59 Last Admin: 03/15/21 08:20 Dose: 40 mg Documented by: Spironolactone (Spironolactone 25 Mg Tab) 50 mg PO BID17 [facility] Stop: 04/08/21 00:00 Last Admin: 03/15/21 08:19 Dose: 50 mg Documented by: Topiramate (Topiramate 25 Mg Tab) 25 mg PO BID17 [facility] Stop: 04/08/21 00:00 Last Admin: 03/15/21 08:20 Dose: 25 mg Documented by: Torsemide (Torsemide 10 Mg Tab) 40 mg PO BID17 [facility] Stop: 04/12/21 16:59 Last Admin: 03/15/21 08:20 Dose: 40 mg Documented by: Warfarin Sodium (Warfarin Sod 5 Mg Tab) 5 mg PO DAILY@1600 [facility] Stop: 04/13/21 15:59 Last Admin: 03/14/21 17:20 Dose: 5 mg Documented by: Zolpidem Tartrate (Zolpidem Tartrate 5 Mg Tab) 5 mg PO HS PRN PRN Reason: Sleep Stop: 04/07/21 23:28 Last Admin: 03/14/21 22:36 Dose: 5 mg Documented by:
[2021-03-15] MEDS: FLUTICASONE/VILANTEROL 200/25MCG 14 PUFFS/INHALER INH SCH (10:32)
--- NOTE | 2021-03-15 12:46 | Hospitalist Progress Note ---
Date of Service March 15, 2021 Assessment & Plan (1) Right-sided congestive heart failure: Plan: Acute on chronic diastolic (congestive) heart failure negative 13 L Fluid balance so far Much improved and denies any symptoms at rest Continue Bumex and Spironolactone Appreciate cardiology input and recommendation IV diuretics has been changed to oral Does not have any more symptoms of fluid overload He has had physical therapy evaluation and recommended that he can go home He does not require any oxygen on discharge Chronic A. fib Sick sinus syndrome Single-chamber pacemaker i Continue metoprolol 50 mg daily INR 1.8 Received 7.5 mg Coumadin yesterday INR is 2.1 today We will continue INR 5 mg on discharge with coagulation clinic appointment He was advised to have an appointment with coag clinic within next 2 to 3 days H/O CAD S/P CABG Continue statin,aspirin, Isosorbide and Lopressor Hyperlipidemia On Rosuvastatin Obstructive sleep apnea CPAP at bedtime CKD III Creatinine at baseline Monitor renal function Avoid Nephrotoxic agents as able Morbid obesity BMI:60.9 Counseling about weight loss Depression Continue home medications HTN Continue Lopressor and Imdur Monitor BP DVT Px: on Coumadin Disposition Will be discharged home this afternoon Admission and Anticipated Discharge Date Admission Date: March 08, 2021 Subjective 03/13/2021 The patient was seen and examined in telemetry unit He remained stable in bed but complains to have shortness of breath with minimal exertion He is saturating normally on room air at rest Denies any chest pain and/or palpitation, any fever and/or chills, any nausea and/or vomiting. 03/14/2021 The patient was seen and examined in telemetry unit He has been feeling much better He is at 13 L negative balance as of today Denies any significant symptoms 03/15/2021 The patient was seen and examined in telemetry unit He is out of bed on a chair and has been feeling much better He passed to a step O2 saturation test He will be discharged this afternoon Review of Systems Review of Systems: All systems reviewed and are unremarkable except as noted below Constitutional: Morbidly obese Respiratory: Shortness of breath on exertion Physical Exam Physical Exam: Sitting on a chair without any acute distress Constitutional: well developed, well nourished, + ill appearing and + morbidly obese Eyes: PERRL, conjunctivae normal, anicteric sclerae ENMT: external ear and nose normal, oropharynx normal Neck: trachea midline, no thyromegaly Respiratory: no respiratory distress Auscultation: + diminished lung sounds; no crackles and no wheezes (Minimal wheezing bilaterally) Cardiovascular: Rate/Rhythm: regular rate and regular rhythm Heart Sounds: normal S1 and normal S2; no murmur Extremities: + edema (1-2+ edema bilaterally) Gastrointestinal (Abdomen): normal bowel sounds, soft, nontender, no hepatosplenomegaly Musculoskeletal: No acute arthritis in any joint Neurologic: normal touch/pain/proprioception and moves all extremities Lymphatic: no cervical or axillary lymphadenopathy Results & Data Results & Data ([facility]) Vital Signs (Past 12 Hours) Vital Signs Temp Pulse Pulse Pulse Pulse Pulse Resp 03/15/21 11:03 36.7 C 80 21 03/15/21 10:55 89 88 87 03/15/21 10:20 03/15/21 07:47 78 19 03/15/21 07:20 36.5 C 73 18 03/15/21 03:25 03/15/21 03:23 36.4 C L 86 18 03/15/21 00:45 68 Resp Resp Resp BP BP Pulse Ox Pulse Ox 03/15/21 11:03 141/75 H 93 03/15/21 10:55 22 22 20 96 03/15/21 10:20 95 03/15/21 07:47 91 03/15/21 07:20 120/75 92 03/15/21 03:25 03/15/21 03:23 112/76 91 03/15/21 00:45 Pulse Ox Pulse Ox 03/15/21 11:03 03/15/21 10:55 95 98 03/15/21 10:20 03/15/21 07:47 03/15/21 07:20 03/15/21 03:25 95 03/15/21 03:23 03/15/21 00:45 89 L Laboratory Results Short CBC 03/15/21 Range/Units 06:27 WBC 11.70 H (4.8-10.8) K/uL Hgb 12.2 L (14.0-18.0) g/dL Hct 38.0 L (42-52) % Plt Count 216 (130-400) K/uL BMP 03/15/21 06:27 Sodium 135 L Potassium 3.9 D Chloride 103 Carbon Dioxide 27 BUN 23 H Creatinine 1.51 H Glucose 87 Calcium 9.4 Medications Administered Current Inpatient Medications Acetaminophen (Acetaminophen 325 Mg Tab) 650 mg PO Q4H PRN PRN Reason: Pain or Fever Stop: 04/07/21 23:28 Last Admin: 03/12/21 07:32 Dose: 650 mg Documented by: Aripiprazole (Aripiprazole 5 Mg Tab) 5 mg PO QAM [facility] Stop: 04/08/21 08:59 Last Admin: 03/15/21 08:19 Dose: 5 mg Documented by: Escitalopram Oxalate (Escitalopram Oxalate 10 Mg Tab) 10 mg PO DAILY [facility] Stop: 04/08/21 08:59 Last Admin: 03/15/21 08:20 Dose: 10 mg Documented by: Ferrous Sulfate (Ferrous Sulfate 325 Mg Tab) 325 mg PO DAILY [facility] Stop: 04/08/21 08:59 Last Admin: 03/15/21 08:19 Dose: 325 mg Documented by: Fluticasone/Vilanterol (Fluticasone/Vilanterol 200/25mcg 14 Puffs/Inhaler) 1 puffs INH DAILY [facility]; Protocol Stop: 04/08/21 08:59 Last Admin: 03/15/21 10:32 Dose: 1 puffs Documented by: Gabapentin (Gabapentin 600 Mg Tab) 600 mg PO BID [facility] Stop: 04/08/21 00:00 Last Admin: 03/15/21 08:19 Dose: 600 mg Documented by: Ipratropium [place] (Ipratropium [place] Neb Soln 0.02% 2.5 Ml Vial) 0.5 mg INH Q4R PRN PRN Reason: SHORTNESS OF BREATH OR WHEEZIN Stop: 04/07/21 23:28 Last Admin: 03/15/21 07:46 Dose: 0.5 mg Documented by: Isosorbide Mononitrate (Isosorbide [place] Extended Rel 30 Mg Tabcr) 30 mg PO QAM [facility] Stop: 04/08/21 08:59 Last Admin: 03/15/21 08:19 Dose: 30 mg Documented by: Lamotrigine (Lamotrigine 100 Mg Tab) 200 mg PO BID [facility] Stop: 04/08/21 00:00 Last Admin: 03/15/21 08:20 Dose: 200 mg Documented by: Levalbuterol HCl (Levalbuterol 1.25mg/0.5ml Neb) 1.25 mg INH Q4R PRN PRN Reason: SHORTNESS OF BREATH OR WHEEZIN Stop: 04/07/21 23:28 Last Admin: 03/15/21 07:46 Dose: 1.25 mg Documented by: Metoprolol Succinate (Metoprolol Succ 50mg Ext Rel Tab) 50 mg PO DAILY [facility] Stop: 04/08/21 08:59 Last Admin: 03/15/21 08:19 Dose: 50 mg Documented by: Nitroglycerin (Nitroglycerin Sl 0.4 Mg/Tab Tab) 0.4 mg SL UD PRN PRN Reason: Chest Pain Stop: 04/07/21 23:28 Nitroglycerin (Nitroglycerin Sl 0.4 Mg/Tab Tab) 0.4 mg SL UD PRN PRN Reason: Chest Pain Stop: 04/07/21 23:28 Oxycodone HCl (Oxycodone Hcl Ir 5 Mg Tab (Immediate Release)) 5 - 10 mg PO QID PRN PRN Reason: Pain Stop: 03/22/21 23:28 Last Admin: 03/14/21 21:09 Dose: 10 mg Documented by: Potassium Chloride (Potassium Chloride Crtab 20 Meq Tabcr) 20 meq PO BID [facility] Stop: 04/08/21 00:00 Last Admin: 03/15/21 08:26 Dose: 20 meq Documented by: Promethazine HCl (Promethazine Hcl 25 Mg Tab) 12.5 mg PO Q6H PRN PRN Reason: Nausea And Vomiting Stop: 04/09/21 10:00 Quetiapine Fumarate (Quetiapine Fumarate 200 Mg Tab) 200 mg PO HS PRN PRN Reason: Sleep Stop: 04/07/21 23:28 Last Admin: 03/10/21 23:29 Dose: 200 mg Documented by: Quetiapine Fumarate (Quetiapine Fumarate 200 Mg Tab) 200 mg PO HS [facility] Stop: 04/10/21 20:59 Last Admin: 03/14/21 22:36 Dose: 200 mg Documented by: Rosuvastatin Calcium (Rosuvastatin Calcium 20 Mg Tab) 40 mg PO DAILY [facility] Stop: 04/08/21 08:59 Last Admin: 03/15/21 08:20 Dose: 40 mg Documented by: Spironolactone (Spironolactone 25 Mg Tab) 50 mg PO BID17 [facility] Stop: 04/08/21 00:00 Last Admin: 03/15/21 08:19 Dose: 50 mg Documented by: Topiramate (Topiramate 25 Mg Tab) 25 mg PO BID17 [facility] Stop: 04/08/21 00:00 Last Admin: 03/15/21 08:20 Dose: 25 mg Documented by: Torsemide (Torsemide 10 Mg Tab) 40 mg PO BID17 [facility] Stop: 04/12/21 16:59 Last Admin: 03/15/21 08:20 Dose: 40 mg Documented by: Warfarin Sodium (Warfarin Sod 5 Mg Tab) 5 mg PO DAILY@1600 [facility] Stop: 04/13/21 15:59 Last Admin: 03/14/21 17:20 Dose: 5 mg Documented by: Zolpidem Tartrate (Zolpidem Tartrate 5 Mg Tab) 5 mg PO HS PRN PRN Reason: Sleep Stop: 04/07/21 23:28 Last Admin: 03/14/21 22:36 Dose: 5 mg Documented by:
[2021-03-15] MEDS: oxyCODONE HCL IR 5 MG TAB (IMMEDIATE RELEASE) PO PRN (13:01)
--- NOTE | 2021-03-16 08:37 | Discharge Summary ---
Date of Service March 16, 2021 Admission HPI Per Admitting Provider History obtained from patient and records. Medical history significant for chronic right-sided heart failure (EF 55- 60%, TTE 2020 55), cor pulmonale, OSCAR on BiPAP, SSS status post PPM on Coumadin, CAD status post CABG, hypertension, hyperlipidemia, COPD as per records, CRI (baseline creatinine 1.6), chronic back pain, mood disorder, chronic anemia (baseline hemoglobin of 12), past tobacco/alcohol abuse as per records. Last confinement last month for right-sided heart failure. Patient discharged on Torsemide regimen. Patient noted 20 pound weight gain in the last few weeks along with an episode of left-sided chest pain with shortness of breath nonradiating yesterday. No cough symptoms. Admits to dietary indiscretion and not following fluid restriction of 50 ounces a day. Compliant with home medications. Patient seen at [facility] outpatient last week. Provider restarted metolazone Rx every 10 days. Patient strongly urged to comply with fluid restriction and to comply with CPAP. Medical History as above Surgical History : CABG, dental surgery, orthopedic procedures Family History : Pancreatitis, leukemia Personal/Social history : Past tobacco/alcohol abuse, disabled Admission Exam Per Admitting Provider Physical Exam: GENERAL: Slightly uncomfortable, morbidly obese, no respiratory distress SKIN: Pallor, warm HEENT: Pale palpebral conjunctivae, no ptosis, dry buccal mucosa NECK : Supple, short neck, no tenderness CHEST : Decreased breath sounds, no tenderness HEART : Irregular, no obvious murmurs ABDOMEN: distention, nontender EXTREMITIES : Bilateral LE swelling, no LE tenderness, no other conspicuous deformities noted NEUROLOGIC : Coherent, no facial asymmetry, no other gross focality Principal Diagnosis Right-sided congestive heart failure, chronic atrial fibrillation, CAD status post CABG, obstructive sleep apnea, chronic kidney disease stage III, obesity Discharge Exam Constitutional well developed, well nourished, + ill appearing and + morbidly obese Eyes PERRL, conjunctivae normal, anicteric sclerae ENMT external ear and nose normal, oropharynx normal Neck trachea midline, no thyromegaly Respiratory no respiratory distress Auscultation: + diminished lung sounds; no crackles and no wheezes (Minimal wheezing bilaterally) Cardiovascular Rate/Rhythm: regular rate and regular rhythm Heart Sounds: normal S1 and normal S2; no murmur Extremities: + edema (1-2+ edema bilaterally) Gastrointestinal (Abdomen) normal bowel sounds, soft, nontender, no hepatosplenomegaly Neurologic normal touch/pain/proprioception and moves all extremities Lymphatic no cervical or axillary lymphadenopathy Discharge Data Allergies Allergy/AdvReac Type Severity Reaction Status Date / Time morphine AdvReac Mild nausea and Verified 03/08/21 18:11 vomiting Consultations 03/08/21 19:53 ED Decision to Admit Stat 03/08/21 23:29 Consult Cardiology Routine Hospital Course (1) Right-sided congestive heart failure: Acute on chronic diastolic (congestive) heart failure negative 13 L Fluid balance so far Much improved and denies any symptoms at rest Continue Bumex and Spironolactone Appreciate cardiology input and recommendation IV diuretics has been changed to oral Does not have any more symptoms of fluid overload He has had physical therapy evaluation and recommended that he can go home He does not require any oxygen on discharge Chronic A. fib Sick sinus syndrome Single-chamber pacemaker i Continue metoprolol 50 mg daily INR 1.8 Received 7.5 mg Coumadin yesterday INR is 2.1 today We will continue INR 5 mg on discharge with coagulation clinic appointment He was advised to have an appointment with coag clinic within next 2 to 3 days H/O CAD S/P CABG Continue statin,aspirin, Isosorbide and Lopressor Hyperlipidemia On Rosuvastatin Obstructive sleep apnea CPAP at bedtime CKD III Creatinine at baseline Monitor renal function Avoid Nephrotoxic agents as able Morbid obesity BMI:60.9 Counseling about weight loss Depression Continue home medications HTN Continue Lopressor and Imdur Monitor BP DVT Px: on Coumadin Disposition Will be discharged home this afternoon Total Time Total Time Spent Total Time Spent (In Minutes): 45 minutes Discharge Plan Discharge Items Patient Disposition: Home - Self-Care Reason For Visit: CHF, CP Discharge Diagnosis: Right-sided congestive heart failure, chronic atrial fibrillation, CAD status post CABG, obstructive sleep apnea, chronic kidney disease stage III, obesity Condition on Discharge: Fair Activity: Resume your previous activity Non-emergency contact: Primary Care Provider Call non-emergency contact if: you have any medication questions and your symptoms worsen Follow-up/Referrals: Jp Morillo MD [Primary Care Provider] - (Your appointment is with Dr. Arora on 03/18/[address] Morillo is not available) Diet: Heart Healthy and Low Sodium (2gm) Fluids: 1800ml (7 cups) Addtl Attending Provider Instructions: Please take precautions to avoid falls Take your medications as advised Keep appointment with your providers and also with coagulation clinic Pending Studies at Discharge: No Stand-Alone Forms: My [facility] Amind, Smoking Cessation Medications and DC Order Prescriptions: Continued gabapentin 600 mg Tablet 600 mg PO BID RF: 0 lamotrigine [Lamictal] 200 mg Tablet 200 mg PO BID RF: 0 isosorbide mononitrate 30 mg Tablet Extended Release 24 Hr 30 mg PO QAM RF: 0 topiramate [Topamax] 25 mg Tablet 25 mg PO BID RF: 0 hydroxyzine HCl 50 mg Tablet 50 mg PO BID PRN (Reason: Itching) RF: 0 ferrous sulfate 325 mg (65 mg iron) Tablet 325 mg PO DAILY RF: 0 nitroglycerin [Nitrostat] 0.4 mg Tablet, Sublingual 0.4 mg Sublingual DIRECTED PRN (Reason: Chest Pain) RF: 0 zolpidem [Ambien] 5 mg Tablet 5 mg PO HS PRN (Reason: Sleep) RF: 0 albuterol sulfate [ProAir HFA] 90 mcg/actuation Hfa Aerosol Inhaler 2 puff INHALATION QID PRN (Reason: Shortness Of Breath Or Wheezing) RF: 0 fluticasone propion-salmeterol [Advair Diskus] 250-50 mcg/dose Blister With Device 1 inh INHALATION BID RF: 0 albuterol sulfate 2.5 mg /3 mL (0.083 %) Solution For Nebulization 2.5 mg INHALATION Q4 PRN (Reason: Shortness Of Breath Or Wheezing) RF: 0 oxycodone-acetaminophen [Percocet] 5-325 mg tablet 1 tab PO Q6 PRN (Reason: Pain) RF: 0 potassium chloride [Klor-Con M20] 20 mEq tablet,ER particles/crystals 40 meq PO TID RF: 0 escitalopram oxalate [Lexapro] 10 mg tablet 10 mg PO DAILY RF: 0 aripiprazole [Abilify] 5 mg tablet 5 mg PO QAM RF: 0 rosuvastatin [Crestor] 40 mg tablet 40 mg PO DAILY RF: 0 metoprolol succinate 50 mg tablet extended release 24 hr 50 mg PO DAILY RF: 0 spironolactone 50 mg tablet 50 mg PO BID RF: 0 warfarin 5 mg tablet 5 mg PO QPM RF: 0 quetiapine [Seroquel] 200 mg tablet 200 mg PO HS PRN (Reason: Sleep) RF: 0 torsemide 20 mg tablet 40 mg PO BID 30 Days Qty: 120 RF: 0 Discontinued celecoxib [Celebrex] 200 mg capsule 200 mg PO BID RF: 0 metolazone 2.5 mg tablet 2.5 mg PO DAILY RF: 0 Discharge Orders: Discharge Order (Routine); Ordered 03/15/21 Ordered By: Len Cullen Admission Data Admit Date/Time: 03/08/21 20:42 Attending Provider: Len Cullen Admit Provider: Romaine Ashford Primary Care Provider: Jp Morillo Other Providers: Romaine Ashford ; Peyman Dumont ; Milton Oliver ; Steven Ariza ; Jorge Manzanares ; Avtar Rea ; Álvaro Boggs ; Arlin Shah ; Miryam Correia ; Jessica Washburn ; Hector Davies ; Tom Solano ; Debora Banks Other Interventions: Discharge Summary Assessment (RN) Last Done: 03/15/21 13:50
== END 2021-03-15 14:11 | disposition home or self-care (01) | DRG 291 ==
LOC: ED 14:26 → EDINP 20:42 → SUATTDRO 20:42 → 2E 03-09 06:09

== ENCOUNTER 2021-06-24 15:12 | Inpatient (IN) ==
[2021-06-24 16:29] LABS: Basophils # (auto) 0.03 K/uL (0-0.2); Basophils % (auto) 0.2 %; Eosinophils # (auto) 0.17 K/uL (0-0.5); Eosinophils % (auto) 1.2 %; Hematocrit (blood only) 39.9 % (42-52); Immature Granulocytes # (auto) 0.13 K/uL (0.00-0.02); Immature Granulocytes % (auto) 0.9 %; Lymphocytes # (auto) 1.64 K/uL (1.2-3.4); Lymphocytes % (auto) 11.5 %; Mean Corpuscular Hemoglobin 27.7 pg (25-34); Mean Corpuscular Hgb Conc 32.6 g/dL (32-36); Mean Corpuscular Volume 84.9 fL (80-100); Mean Platelet Volume 10.2 fL (7.4-10.4); Monocytes # (auto) 1.28 K/uL (0.11-0.59); Neutrophils # (auto) 10.96 K/uL (1.4-6.5); Neutrophils % (auto) 77.2 %; Platelet Count 244 K/uL (130-400); RDW Coefficient of Variation 16.4 % (11.5-14.5); RDW Standard Deviation 50.7 fL (36.4-46.3); White Blood Count 14.21 K/uL (4.8-10.8)
[2021-06-24 16:39] LABS: INR 1.9 (0.9-1.1); Prothrombin Time 18.6 Seconds (9.0-12.0)
[2021-06-24 16:49] LABS: Alanine Aminotransferase 54 U/L (12-78); Albumin Level 3.3 gm/dl (3.4-5.0); Aspartate Aminotransferase 32 U/L (15-37); BUN Creatinine Ratio 16.6 (10-20); Blood Urea Nitrogen 38 mg/dl (7-18); Calcium 9.5 mg/dl (8.5-10.1); Carbon Dioxide 29 mmol/L (21-32); Chloride 93 mmol/L (98-107); Est GFR (African American) 35.5 ml/min; Est GFR (Non-African American) 30.6 ml/min; Glucose 94 mg/dl (70-99); Potassium 4.8 mmol/L (3.5-5.1); Sodium 132 mmol/L (136-145)
[2021-06-24 16:52] LABS: Albumin Globulin Ratio 0.7 (0.9-2); Alkaline Phosphatase 166 U/L (45-117); Bilirubin,Total 0.4 mg/dl (0.2-1); Globulin 4.8 gm/dl (2.5-4.0); Total Protein 8.1 gm/dl (6.4-8.2)
--- NOTE | 2021-06-24 19:54 | XRay Report ---
SINGLE VIEW CHEST CLINICAL HISTORY: Illness. FINDINGS: 3 AP, portable, upright chest radiographs are compared to study dated 03/08/2021 and correlat ed with chest CT dated 02/07/2021. The examination is severely degraded by portable technique, apical l ordotic positioning, large body habitus, and patient rotation. A single lead cardiac pacemaker is unc hanged in position. The patient is status post midline sternotomy. The heart is markedly enlarged. Th e pulmonary vasculature is noncongested. There is bibasilar scarring/atelectasis. No airspace consoli dation or large pleural effusion is identified. Scattered calcified granulomas are unchanged. No pneu mothorax is seen. The skeletal structures are osteopenic. The bony thorax is grossly intact. IMPRESSION: 1. Marked cardiomegaly and cardiac pacemaker with no radiographic evidence of congestive failure. 2. No airspace consolidation or large pleural effusion is identified. ACT 112: Negative or not required by law. Electronically signed by: Lawrence Lazar M.D. 06/24/2021 7:53 PM
--- NOTE | 2021-06-24 20:56 | Emergency Department Note ---
Impression & Plan Volume overload, Acute renal insufficiency ED Provider Note Name: SHADE ANDUJAR Age: 60 Sex: M Arrives Via: Walk-In Informant: Patient ED Provider: Duncan Dixon MD Chief Complaint: Fluid overload Impression: As Per Impressions Above Medical Decision Makin yr old morbidly obese male with extensive PMH including heart failure, pacemaker, htn, afib, amongst others arrives for 16 lb weight gain in 1 week, increasing swelling, and difficulty breathing. Sent in by office due to worsening renal function and increasing weight. Afib RVR with exertion though HR at rest is in 90s. IV obtained and labs confirm worsening kidney function. Mild leukocytosis though no fevers, nor other clear infectious findings. CXR with quite large heart, no overt congestive failure. Sats OK on RA at this time. Given Oxy IR for back pain after sitting in chair for last 5 hours. Given history I discussed case with [facility] hospitalist who will bring in for further management. INR 1.9 and with therapeutic a few days earlier I do not feel that PE is likely at this time. Prior Medical Record and Triage/Nursing Notes reviewed by Me Additional history obtained from chart Differentials:Reactive airway disease, pneumonia, pneumothorax, COPD, CHF, infections, cardiac ischemia, pulmonary embolism, musculoskeletal, geri rointestinal, as well as other pathologies. Vital Signs: reviewed and remarkable for no significant abnormalities Interventions: oxy IR 5mg PO Labs:Reviewed and remarkable for no significant abnormalities Imaging:See Below EKG:Per My Interpretation: Indication Shortness of breath: Afib RVR 121 bpm, qtc 437. No Ectopy. No Ischemia. Compared to EKG 03/08/21 previous in Paced rhythm Cardiac/Tele Monitoring: Cardiac Monitoring: An Order was placed for continuous cardiac monitoring. The monitor shows a rate of 90 with a afib rhythm. Consults:Dr Dejon Lora Hospitalist Plan: Disposition:Hospitalization. Condition: Good History of Present Illness:60 yr old male arrives for evaluation of fluid overload. Patient notes he has been having increasing shortness of breath with exertion. Notes the last week he has gained 16 lbs and his urine output has slowed down. Complains of chest pains on and off for the next few days. He states that his legs have been swelling more than usual. No fevers, chills, syncope, active chest pain, current shortness of breath, syncope, rashes nor other symptoms. Denies trauma, falls, injuries. No new medications. He has history afib and is on Coumadin. Exertion makes worse, rest makes better. ROS: See above HPI for pertinent positives & negatives. A total of 10 systems reviewed and were otherwise negative. Past Medical History:See Below Past Surgical History:See Below Family History:See Below Social History:See Below Home Medications:See Below Allergies:morphine Vitals:Blood Pressure: 121/60, Pulse 90, RR 22, T 36.9C, O2 94% on RA Physical Exam: GENERAL: Patient is unwell appearing and in mild distress. morbidly obese male EYES: No scleral icterus, unremarkable pupils. ENT: Mucous membranes moist, no nasal congestion. NECK: No masses appreciated, nomeningismus, trachea is midline. RESPIRATORY: No dyspnea. Diffuse crackles throughout CARDIOVASCULAR: Irregular.No murmurs, rubs, gallops appreciated. GASTROINTESTINAL: Abdomen soft, non-tender, no peritonitis.Bowel sounds positive.No masses appreciated. BACK: No midline tenderness, no CVA tenderness EXTREMITIES: Normal motion all extremities, no cyanosis, +++ pitting edema. NEUROLOGIC: Alert and oriented, no acute motor or sensory deficits, no focal weakness, cranial nerves grossly intact. SKIN: No rash, no jaundice, no diaphoresis. PSYCH: Appropriate GCS: 15 ED Course: Times/Reassessments: Stable, sats and HR Ok while in bed Duncan Dixon MD Past Med/Surg History Medical History (Updated 06/24/21 @ 23:57 by Duncan Dixon MD) CAD (coronary artery disease) CAD (coronary artery disease) Chronic atrial fibrillation Chronic back pain CKD (chronic kidney disease) stage 3, GFR 30-59 ml/min Cor pulmonale Depression HTN (hypertension) Hyperlipidemia Hypertension Obesities, morbid OSCAR (obstructive sleep apnea) Volume overload Surgical History S/P CABG x 4 Social History Smoking Status: Never smoker Second Hand Exposure: Yes; Hx Alcohol Use: No Hx Substance Use: No Preferred Language: Maltese Communication Ability: Effective Hearing Ability: Normal Egg Crater Required: No Beliefs That Will Affect Care: None marital status: Single Current Living Situation: Alone Current Living Situation Comment: fist floor appartment Feels Safe at Home: Yes Assistive Devices: None Allergies Allergies Allergy/AdvReac Type Severity Reaction Status Date / Time morphine AdvReac Mild nausea and Verified 06/24/21 22:33 vomiting Home Meds Home Medications Medication Instructions Recorded Confirmed albuterol sulfate 90 mcg/actuation 2 puff INHALATION QID PRN 05/04/18 06/24/21 aerosol inhaler (ProAir HFA) gabapentin 600 mg tablet 600 mg PO BID 05/04/18 06/24/21 isosorbide mononitrate 30 mg 30 mg PO QAM 05/04/18 06/24/21 tablet,extended release 24 hr lamotrigine 200 mg tablet 200 mg PO BID 05/04/18 06/24/21 (Lamictal) nitroglycerin 0.4 mg sublingual 0.4 mg SUBLINGUAL DIRECTED PRN 05/04/18 06/24/21 tablet (Nitrostat) topiramate 25 mg tablet (Topamax) 25 mg PO BID 05/04/18 06/24/21 zolpidem 5 mg tablet (Ambien) 5 mg PO HS PRN 05/04/18 06/24/21 albuterol sulfate 2.5 mg INHALATION Q6 PRN 03/03/20 06/24/21 aripiprazole 5 mg tablet (Abilify) 5 mg PO QAM 03/03/20 06/24/21 escitalopram oxalate 10 mg tablet 10 mg PO DAILY 03/03/20 06/24/21 (Lexapro) fluticasone 250 mcg-salmeterol 50 1 inh INHALATION BID 03/03/20 06/24/21 mcg/dose blistr powdr for inhalation (Advair Diskus) rosuvastatin 40 mg tablet (Crestor) 40 mg PO DAILY 03/03/20 06/24/21 metoprolol succinate 50 mg 50 mg PO DAILY 02/05/21 06/24/21 tablet,extended release 24 hr quetiapine 200 mg tablet (Seroquel) 200 mg PO HS 02/05/21 06/24/21 spironolactone 50 mg tablet 50 mg PO BID 02/05/21 06/24/21 warfarin 5 mg tablet 5 mg PO QPM 02/05/21 06/24/21 ezetimibe 10 mg tablet 10 mg PO DAILY 06/24/21 06/24/21 metolazone 5 mg tablet 5 mg PO MOWEFR 06/24/21 06/24/21 potassium chloride 20 mEq 40 meq PO MOWEFR 06/24/21 06/24/21 tablet,extended release(part/cryst) potassium chloride 20 mEq 60 meq PO TID 06/24/21 06/24/21 tablet,extended release(part/cryst) sucralfate 1 gram tablet 1 g PO DAILY 06/24/21 06/24/21 tamsulosin 0.4 mg capsule 0.4 mg PO HS 06/24/21 06/24/21 torsemide 20 mg tablet 100 mg PO BID 06/24/21 06/24/21 Results & Data (ED) Vital Signs Vital Signs - 24 hr 06/24/21 16:01 Temperature 36.9 C Temperature Source Temporal Artery Scan Pulse Rate 130 H Respiratory Rate 22 Blood Pressure 121/60 Blood Pressure Mean 80 Pulse Oximetry 94 Oxygen Delivery Method Room Air Sepsis Recent Fever Within 48 Hours No Sepsis New/Unexplained Change in Mental Status No Sepsis Action Taken by Nursing No Action Required Laboratory Data Result diagrams: 06/24/21 16:18 06/24/21 16:18 Lab Results 06/24/21 06/24/21 06/24/21 Range/Units 16:18 16:18 16:18 WBC 14.21 H (4.8-10.8) K/uL RBC 4.70 (4.7-6.1) M/uL Hgb 13.0 L (14.0-18.0) g/dL Hct 39.9 L (42-52) % MCV 84.9 (80-100) fL MCH 27.7 (25-34) pg MCHC 32.6 (32-36) g/dL RDW Std Deviation 50.7 H (36.4-46.3) fL RDW Coeff of Karlene 16.4 H (11.5-14.5) % Plt Count 244 (130-400) K/uL MPV 10.2 (7.4-10.4) fL Immature Gran % (Auto) 0.9 % Neut % (Auto) 77.2 % Lymph % (Auto) 11.5 % [place] % (Auto) 9.0 % Eos % (Auto) 1.2 % Baso % (Auto) 0.2 % Neut # (Auto) 10.96 H (1.4-6.5) K/uL Lymph # (Auto) 1.64 (1.2-3.4) K/uL [place] # (Auto) 1.28 H (0.11-0.59) K/uL Eos # (Auto) 0.17 (0-0.5) K/uL Baso # (Auto) 0.03 (0-0.2) K/uL Immature Gran # (Auto) 0.13 H (0.00-0.02) K/uL PT 18.6 H (9.0-12.0) Seconds INR 1.9 H (0.9-1.1) Sodium 132 L (136-145) mmol/L Potassium 4.8 (3.5-5.1) mmol/L Chloride 93 L (98-107) mmol/L Carbon Dioxide 29 (21-32) mmol/L Anion Gap 11.0 (3-11) BUN 38 H (7-18) mg/dl Creatinine 2.26 H (0.6-1.4) mg/dl Est Cr Clr Drug Dosing 53.0 ml/min Est GFR ( Amer) 35.5 ml/min Est GFR (Non-Af Amer) 30.6 ml/min BUN/Creatinine Ratio 16.6 (10-20) Glucose 94 (70-99) mg/dl Lactate (0.4-2.0) mmol/L Calcium 9.5 (8.5-10.1) mg/dl Magnesium 2.4 (1.8-2.4) mg/dl Total Bilirubin 0.4 (0.2-1) mg/dl AST 32 (15-37) U/L ALT 54 (12-78) U/L Alkaline Phosphatase 166 H (45-117) U/L Troponin I < 0.015 (0-0.045) ng/ml NT-Pro-B Natriuret Pep 438 (0-900) pg/ml Total Protein 8.1 (6.4-8.2) gm/dl Albumin 3.3 L (3.4-5.0) gm/dl Globulin 4.8 H (2.5-4.0) gm/dl Albumin/Globulin Ratio 0.7 L (0.9-2) Procalcitonin (0-0.5) ng/ml SARS-CoV-2, RNA, NAAT (NEGATIVE) 06/24/21 06/24/21 06/24/21 Range/Units 21:05 21:47 21:47 WBC (4.8-10.8) K/uL RBC (4.7-6.1) M/uL Hgb (14.0-18.0) g/dL Hct (42-52) % MCV (80-100) fL MCH (25-34) pg MCHC (32-36) g/dL RDW Std Deviation (36.4-46.3) fL RDW Coeff of Karlene (11.5-14.5) % Plt Count (130-400) K/uL MPV (7.4-10.4) fL Immature Gran % (Auto) % Neut % (Auto) % Lymph % (Auto) % [place] % (Auto) % Eos % (Auto) % Baso % (Auto) % Neut # (Auto) (1.4-6.5) K/uL Lymph # (Auto) (1.2-3.4) K/uL [place] # (Auto) (0.11-0.59) K/uL Eos # (Auto) (0-0.5) K/uL Baso # (Auto) (0-0.2) K/uL Immature Gran # (Auto) (0.00-0.02) K/uL PT (9.0-12.0) Seconds INR (0.9-1.1) Sodium (136-145) mmol/L Potassium (3.5-5.1) mmol/L Chloride (98-107) mmol/L Carbon Dioxide (21-32) mmol/L Anion Gap (3-11) BUN (7-18) mg/dl Creatinine (0.6-1.4) mg/dl Est Cr Clr Drug Dosing ml/min Est GFR ( Amer) ml/min Est GFR (Non-Af Amer) ml/min BUN/Creatinine Ratio (10-20) Glucose (70-99) mg/dl Lactate 1.1 (0.4-2.0) mmol/L Calcium (8.5-10.1) mg/dl Magnesium (1.8-2.4) mg/dl Total Bilirubin (0.2-1) mg/dl AST (15-37) U/L ALT (12-78) U/L Alkaline Phosphatase (45-117) U/L Troponin I (0-0.045) ng/ml NT-Pro-B Natriuret Pep (0-900) pg/ml Total Protein (6.4-8.2) gm/dl Albumin (3.4-5.0) gm/dl Globulin (2.5-4.0) gm/dl Albumin/Globulin Ratio (0.9-2) Procalcitonin 0.21 (0-0.5) ng/ml SARS-CoV-2, RNA, NAAT NEGATIVE (NEGATIVE) Administered Medications Discontinued Medications Furosemide (Furosemide 40 Mg/4 Ml Vial) 60 mg IV NOW STA Stop: 06/24/21 22:20 Last Admin: 06/24/21 23:11 Dose: 60 mg Documented by: [id number] Albumin Human (Albumin 25% 100 Ml) 25 gm in 100 mls @ 50 mls/hr IV ONE STA Stop: 06/24/21 23:47 Last Infusion: 06/24/21 23:10 Dose: 0 mls/hr Documented by: [id number] Admin: 06/24/21 22:02 Dose: 50 mls/hr Documented by: [id number] Oxycodone HCl (Oxycodone Hcl Ir 5 Mg Tab (Immediate Release)) 5 mg PO NOW STA Stop: 06/24/21 21:28 Last Admin: 06/24/21 22:01 Dose: 5 mg Documented by: [id number] Warfarin Sodium (Warfarin Sod 7.5 Mg Tab) 7.5 mg PO NOW STA Stop: 06/24/21 22:20 Last Admin: 06/24/21 23:10 Dose: 7.5 mg Documented by: [id number] Imaging Data Radiologist's Impression: Chest X-Ray 06/24/21 16:04 SINGLE VIEW CHEST CLINICAL HISTORY: Illness. FINDINGS: 3 AP, portable, upright chest radiographs are compared to study dated 03/08/2021 and correlated with chest CT dated 02/07/2021. The examination is severely degraded by portable technique, apical lordotic positioning, large body habitus, and patient rotation. A single lead cardiac pacemaker is unchanged in position. The patient is status post midline sternotomy. The heart is markedly enlarged. The pulmonary vasculature is noncongested. There is bibasilar scarring/atelectasis. No airspace consolidation or large pleural effusion is identified. Scattered calcified granulomas are unchanged. No pneumothorax is seen. The skeletal structures are osteopenic. The bony thorax is grossly intact. IMPRESSION: 1. Marked cardiomegaly and cardiac pacemaker with no radiographic evidence of congestive failure. 2. No airspace consolidation or large pleural effusion is identified. ACT 112: Negative or not required by law. Electronically signed by: Lawrence Lazar M.D. 06/24/2021 7:53 PM Discharge Plan Visit Data Chief Complaint: Abnormal Labs/Diagnostic Testing Stated Complaint: ABNORMAL LABS DR AMAYA ED Provider: Duncan Dixon Discharge Problem: Volume overload, Acute renal insufficiency Forms Stand Alone Forms: My [facility] [place] [employer] Prescriptions Prescriptions: No Action gabapentin 600 mg Tablet 600 mg PO BID RF: 0 lamotrigine [Lamictal] 200 mg Tablet 200 mg PO BID RF: 0 isosorbide mononitrate 30 mg Tablet Extended Release 24 Hr 30 mg PO QAM RF: 0 topiramate [Topamax] 25 mg Tablet 25 mg PO BID RF: 0 nitroglycerin [Nitrostat] 0.4 mg Tablet, Sublingual 0.4 mg Sublingual DIRECTED PRN (Reason: Chest Pain) RF: 0 zolpidem [Ambien] 5 mg Tablet 5 mg PO HS PRN (Reason: Sleep) RF: 0 albuterol sulfate [ProAir HFA] 90 mcg/actuation Hfa Aerosol Inhaler 2 puff INHALATION QID PRN (Reason: Shortness Of Breath Or Wheezing) RF: 0 fluticasone propion-salmeterol [Advair Diskus] 250-50 mcg/dose Blister With Device 1 inh INHALATION BID RF: 0 albuterol sulfate 2.5 mg /3 mL (0.083 %) Solution For Nebulization 2.5 mg INHALATION Q6 PRN (Reason: Shortness Of Breath Or Wheezing) RF: 0 escitalopram oxalate [Lexapro] 10 mg tablet 10 mg PO DAILY RF: 0 aripiprazole [Abilify] 5 mg tablet 5 mg PO QAM RF: 0 rosuvastatin [Crestor] 40 mg tablet 40 mg PO DAILY RF: 0 metoprolol succinate 50 mg tablet extended release 24 hr 50 mg PO DAILY RF: 0 spironolactone 50 mg tablet 50 mg PO BID RF: 0 warfarin 5 mg tablet 5 mg PO QPM RF: 0 quetiapine [Seroquel] 200 mg tablet 200 mg PO HS RF: 0 sucralfate 1 gram tablet 1 g PO DAILY RF: 0 metolazone 5 mg tablet 5 mg PO MOWEFR RF: 0 potassium chloride 20 mEq tablet,ER particles/crystals 60 meq PO TID RF: 0 potassium chloride 20 mEq tablet,ER particles/crystals 40 meq PO MOWEFR RF: 0 tamsulosin 0.4 mg capsule 0.4 mg PO HS RF: 0 ezetimibe 10 mg tablet 10 mg PO DAILY RF: 0 torsemide 20 mg tablet 100 mg PO BID RF: 0 Referrals Referrals: Jp Morillo MD [Primary Care Provider] -
[2021-06-24 21:18] LABS: NT Pro B Type Natriuretic Pept 438 pg/ml (0-900)
[2021-06-24] MEDS ORDERED: oxyCODONE HCL IR 5 MG TAB (IMMEDIATE RELEASE) PO STA (21:27)
[2021-06-24 21:38] LABS: Magnesium 2.4 mg/dl (1.8-2.4); Troponin I < 0.015 ng/ml (0-0.045)
[2021-06-24] MEDS ORDERED: ALBUMIN 25% 100 mL 25 GM/100 ML VIAL IV STA (21:48)
[2021-06-24] MEDS ORDERED: WARFARIN SOD 7.5 MG TAB PO STA (22:19)
[2021-06-24] MEDS ORDERED: FUROSEMIDE 40 MG/4 ML VIAL IV STA (22:19)
--- NOTE | 2021-06-24 22:20 | History & Physical Report ---
Date of Service June 24, 2021 Assessment & Plan (1) Decompensated heart failure: Plan: Right-sided heart failure, history cor pulmonale/OSCAR on BiPAP Subacute symptoms Possible cardiorenal syndrome given worsening kidney dysfunction Secondary to dietary indiscretion/?noncompliance, possible functional disability SSS status post PPM on Coumadin, A. fib, rate controlled, INR slightly subtherapeutic History CAD status post CABG hypertension, stable hyperlipidemia, on statin Rx chronic back pain Mood disorder, stable past tobacco/alcohol abuse as per records Chronic anemia, hemoglobin at baseline PCU Lasix albumin now Defer subsequent diuretic dosing to Cardiology/Nephrology Strict I/Os, daily weights, CHF education, fluid restriction PT OT eval Social service RE discharge planning DVT prophylaxis. Coumadin INR goal between 2 and 3 Full code Text document was generated using [employer] voice recognition software. It may contain grammatical or spelling errors. Kindly contact undersigned for clarification of any documentation item in question. History of Present Illness Chief Complaint: Fluid retention Primary Care Provider: Jp Morillo MD History obtained from patient and records. Medical history significant for chronic right-sided heart failure (EF 55- 60%, TTE 2020), cor pulmonale, OSCAR on BiPAP, SSS status post PPM on Coumadin, CAD status post CABG, hypertension, hyperlipidemia, COPD as per records, CRI (baseline creatinine 2.2), chronic back pain, mood disorder, chronic anemia (baseline hemoglobin of 12), past tobacco/alcohol abuse as per records. Last confinement March 2021 for right-sided heart failure. Patient discharged on diuretic regimen. Since discharge to home, patient noted gradual weight gain, abdominal distention, bilateral leg swelling, and occasional shortness of breath mostly on exertion. No chest pain. Patient admits to dietary indiscretion and not following fluid restriction instructions. Patient claims to be compliant with home medications and CPAP. Home nursing concerns about patient inability to follow through with recommendations. Outpatient serum creatinine steadily increasing from baseline to 2.2 over the last few months. Patient seen by [facility] performance improvement coordinator outpatient last month. Outpatient renal ultrasound from last month showed medical renal disease. No hydronephrosis. Patient directed to ER after evaluation at [facility] district resource officer office today. Medical History as above Surgical History : CABG, dental surgery, orthopedic procedures Family History : Pancreatitis, leukemia Personal/Social history : Past tobacco/alcohol abuse, disabled Allergies Allergy/AdvReac Type Severity Reaction Status Date / Time morphine AdvReac Mild nausea and Verified 06/24/21 22:33 vomiting Home Medications Medication Instructions Recorded Confirmed Type albuterol sulfate 90 mcg/actuation 2 puff INHALATION QID PRN 05/04/18 06/24/21 History aerosol inhaler (ProAir HFA) gabapentin 600 mg tablet 600 mg PO BID 05/04/18 06/24/21 History isosorbide mononitrate 30 mg 30 mg PO QAM 05/04/18 06/24/21 History tablet,extended release 24 hr lamotrigine 200 mg tablet 200 mg PO BID 05/04/18 06/24/21 History (Lamictal) nitroglycerin 0.4 mg sublingual 0.4 mg SUBLINGUAL DIRECTED PRN 05/04/18 06/24/21 History tablet (Nitrostat) topiramate 25 mg tablet (Topamax) 25 mg PO BID 05/04/18 06/24/21 History zolpidem 5 mg tablet (Ambien) 5 mg PO HS PRN 05/04/18 06/24/21 History albuterol sulfate 2.5 mg INHALATION Q6 PRN 03/03/20 06/24/21 History aripiprazole 5 mg tablet (Abilify) 5 mg PO QAM 03/03/20 06/24/21 History escitalopram oxalate 10 mg tablet 10 mg PO DAILY 03/03/20 06/24/21 History (Lexapro) fluticasone 250 mcg-salmeterol 50 1 inh INHALATION BID 03/03/20 06/24/21 History mcg/dose blistr powdr for inhalation (Advair Diskus) rosuvastatin 40 mg tablet (Crestor) 40 mg PO DAILY 03/03/20 06/24/21 History metoprolol succinate 50 mg 50 mg PO DAILY 02/05/21 06/24/21 History tablet,extended release 24 hr quetiapine 200 mg tablet (Seroquel) 200 mg PO HS 02/05/21 06/24/21 History spironolactone 50 mg tablet 50 mg PO BID 02/05/21 06/24/21 History warfarin 5 mg tablet 5 mg PO QPM 02/05/21 06/24/21 History ezetimibe 10 mg tablet 10 mg PO DAILY 06/24/21 06/24/21 History metolazone 5 mg tablet 5 mg PO MOWEFR 06/24/21 06/24/21 History potassium chloride 20 mEq 40 meq PO MOWEFR 06/24/21 06/24/21 History tablet,extended release(part/cryst) potassium chloride 20 mEq 60 meq PO TID 06/24/21 06/24/21 History tablet,extended release(part/cryst) sucralfate 1 gram tablet 1 g PO DAILY 06/24/21 06/24/21 History tamsulosin 0.4 mg capsule 0.4 mg PO HS 06/24/21 06/24/21 History torsemide 20 mg tablet 100 mg PO BID 06/24/21 06/24/21 History Past Med/Surg History Medical History (Updated 06/25/21 @ 09:26 by Romaine Ashford MD) CAD (coronary artery disease) CAD (coronary artery disease) Chronic atrial fibrillation Chronic back pain CKD (chronic kidney disease) stage 3, GFR 30-59 ml/min Cor pulmonale Depression HTN (hypertension) Hyperlipidemia Hypertension Obesities, morbid OSCAR (obstructive sleep apnea) Volume overload Surgical History S/P CABG x 4 Social History Smoking Status: Never smoker Second Hand Exposure: No; Do You Dip or Chew Tobacco: Yes; Hx Alcohol Use: No Hx Substance Use: No Preferred Language: Malaysian Communication Ability: Effective Hearing Ability: Normal Nurse Case Manager Required: No Beliefs That Will Affect Care: None marital status: Single Current Living Situation: Alone Current Living Situation Comment: fist floor appartment Other Information That Helps Us Care for You: No Feels Safe at Home: Yes Safety Concerns: Feels Safe At This Time Assistive Devices: CPAP and Nebulizer Review of Systems Review of Systems: As per HPI, all 10 systems reviewed, all other ROS negative Physical Exam Physical Exam: GENERAL: Pleasant, morbidly obese, no respiratory distress SKIN: Pallor, warm HEENT: Pale palpebral conjunctivae, no ptosis, chronic lip symmetry as per patient, moist buccal mucosa NECK : Supple, short neck, no tenderness CHEST : Decreased breath sounds, no tenderness HEART : Irregular, no obvious murmurs ABDOMEN: distention, nontender EXTREMITIES : Bilateral LE swelling, no LE tenderness, no other conspicuous deformities noted NEUROLOGIC : Coherent, no facial asymmetry, no other gross focality Results & Data Results & Data ([facility]) Vital Signs (Past 12 Hours) Vital Signs Temp Pulse Resp BP Pulse Ox 06/24/21 16:01 36.9 C 130 H 22 121/60 94 Laboratory Results Laboratory Results WBC 14.21 K/uL (4.8-10.8) H 06/24/21 16:18 RBC 4.70 M/uL (4.7-6.1) 06/24/21 16:18 Hgb 13.0 g/dL (14.0-18.0) L 06/24/21 16:18 Hct 39.9 % (42-52) L 06/24/21 16:18 MCV 84.9 fL (80-100) 06/24/21 16:18 MCH 27.7 pg (25-34) 06/24/21 16:18 MCHC 32.6 g/dL (32-36) 06/24/21 16:18 RDW Std Deviation 50.7 fL (36.4-46.3) H 06/24/21 16:18 RDW Coeff of Karlene 16.4 % (11.5-14.5) H 06/24/21 16:18 Plt Count 244 K/uL (130-400) 06/24/21 16:18 MPV 10.2 fL (7.4-10.4) 06/24/21 16:18 Immature Gran % (Auto) 0.9 % 06/24/21 16:18 Neut % (Auto) 77.2 % 06/24/21 16:18 Lymph % (Auto) 11.5 % 06/24/21 16:18 [place] % (Auto) 9.0 % 06/24/21 16:18 Eos % (Auto) 1.2 % 06/24/21 16:18 Baso % (Auto) 0.2 % 06/24/21 16:18 Neut # (Auto) 10.96 K/uL (1.4-6.5) H 06/24/21 16:18 Lymph # (Auto) 1.64 K/uL (1.2-3.4) 06/24/21 16:18 [place] # (Auto) 1.28 K/uL (0.11-0.59) H 06/24/21 16:18 Eos # (Auto) 0.17 K/uL (0-0.5) 06/24/21 16:18 Baso # (Auto) 0.03 K/uL (0-0.2) 06/24/21 16:18 Immature Gran # (Auto) 0.13 K/uL (0.00-0.02) H 06/24/21 16:18 PT 18.6 Seconds (9.0-12.0) H 06/24/21 16:18 INR 1.9 (0.9-1.1) H 06/24/21 16:18 Sodium 132 mmol/L (136-145) L 06/24/21 16:18 Potassium 4.8 mmol/L (3.5-5.1) 06/24/21 16:18 Chloride 93 mmol/L (98-107) L 06/24/21 16:18 Carbon Dioxide 29 mmol/L (21-32) 06/24/21 16:18 Anion Gap 11.0 (3-11) 06/24/21 16:18 BUN 38 mg/dl (7-18) H 06/24/21 16:18 Creatinine 2.26 mg/dl (0.6-1.4) H 06/24/21 16:18 Est Cr Clr Drug Dosing 53.0 ml/min 06/24/21 16:18 Est GFR ( Amer) 35.5 ml/min 06/24/21 16:18 Est GFR (Non-Af Amer) 30.6 ml/min 06/24/21 16:18 BUN/Creatinine Ratio 16.6 (10-20) 06/24/21 16:18 Glucose 94 mg/dl (70-99) 06/24/21 16:18 Calcium 9.5 mg/dl (8.5-10.1) 06/24/21 16:18 Magnesium 2.4 mg/dl (1.8-2.4) 06/24/21 16:18 Total Bilirubin 0.4 mg/dl (0.2-1) 06/24/21 16:18 AST 32 U/L (15-37) 06/24/21 16:18 ALT 54 U/L (12-78) 06/24/21 16:18 Alkaline Phosphatase 166 U/L (45-117) H 06/24/21 16:18 Troponin I < 0.015 ng/ml (0-0.045) 06/24/21 16:18 NT-Pro-B Natriuret Pep 438 pg/ml (0-900) 06/24/21 16:18 Total Protein 8.1 gm/dl (6.4-8.2) 06/24/21 16:18 Albumin 3.3 gm/dl (3.4-5.0) L 06/24/21 16:18 Globulin 4.8 gm/dl (2.5-4.0) H 06/24/21 16:18 Albumin/Globulin Ratio 0.7 (0.9-2) L 06/24/21 16:18 SARS-CoV-2, RNA, NAAT NEGATIVE (NEGATIVE) 06/24/21 21:05 Impressions Chest X-Ray 06/24/21 16:04 SINGLE VIEW CHEST CLINICAL HISTORY: Illness. FINDINGS: 3 AP, portable, upright chest radiographs are compared to study dated 03/08/2021 and correlated with chest CT dated 02/07/2021. The examination is severely degraded by portable technique, apical lordotic positioning, large body habitus, and patient rotation. A single lead cardiac pacemaker is unchanged in position. The patient is status post midline sternotomy. The heart is markedly enlarged. The pulmonary vasculature is noncongested. There is bibasilar scarring/atelectasis. No airspace consolidation or large pleural effusion is identified. Scattered calcified granulomas are unchanged. No pneumothorax is seen. The skeletal structures are osteopenic. The bony thorax is grossly intact. IMPRESSION: 1. Marked cardiomegaly and cardiac pacemaker with no radiographic evidence of congestive failure. 2. No airspace consolidation or large pleural effusion is identified. ACT 112: Negative or not required by law. Electronically signed by: Lawrence Lazar M.D. 06/24/2021 7:53 PM Diagnostic Findings EKG as per my interpretation: Rate 90, A. fib, RAD, nonspecific T wave abnormalities, low voltage
[2021-06-25] MEDS ORDERED: NITROGLYCERIN SL 0.4 MG/TAB TAB SL PRN (00:16)
[2021-06-25] MEDS ORDERED: PROMETHAZINE HCL 12.5 MG in SODIUM CHLORIDE 0.9% 50 ML IV PRN (00:16)
[2021-06-25 02:25] LABS: Appearance Urine Clear (Clear); Bilirubin Urine Negative (Negative); Blood Urine Negative (Negative); Color Urine Yellow; Glucose Urine UA Negative (Negative); Ketones Urine Negative (Negative); Leukocyte Esterase Urine Negative (Negative); Nitrite Urine Negative (Negative); Protein Urine Negative (Negative); Specific Gravity Urine 1.008 (1.000-1.030); Urobilinogen Urine Negative (Negative)
[2021-06-25] MEDS: QUEtiapine FUMARATE 200 MG TAB PO SCH ×2 (02:25→20:52)
[2021-06-25] MEDS: GABAPENTIN 600 MG TAB PO SCH ×3 (02:26→20:53)
[2021-06-25 06:21] LABS: Basophils # (auto) 0.04 K/uL (0-0.2); Basophils % (auto) 0.4 %; Eosinophils # (auto) 0.26 K/uL (0-0.5); Eosinophils % (auto) 2.4 %; Hematocrit (blood only) 36.7 % (42-52); Hemoglobin 11.9 g/dL (14.0-18.0); Immature Granulocytes # (auto) 0.08 K/uL (0.00-0.02); Immature Granulocytes % (auto) 0.7 %; Lymphocytes # (auto) 2.13 K/uL (1.2-3.4); Lymphocytes % (auto) 19.5 %; Mean Corpuscular Hemoglobin 27.4 pg (25-34); Mean Corpuscular Hgb Conc 32.4 g/dL (32-36); Mean Corpuscular Volume 84.4 fL (80-100); Mean Platelet Volume 10.1 fL (7.4-10.4); Monocytes # (auto) 0.98 K/uL (0.11-0.59); Monocytes % (auto) 8.9 %; Neutrophils # (auto) 7.46 K/uL (1.4-6.5); Neutrophils % (auto) 68.1 %; Platelet Count 221 K/uL (130-400); RDW Coefficient of Variation 16.7 % (11.5-14.5); RDW Standard Deviation 51.5 fL (36.4-46.3); Red Blood Count 4.35 M/uL (4.7-6.1); White Blood Count 10.95 K/uL (4.8-10.8)
[2021-06-25 06:38] LABS: INR 1.8 (0.9-1.1); Prothrombin Time 17.4 Seconds (9.0-12.0)
[2021-06-25 07:19] LABS: BUN Creatinine Ratio 18.9 (10-20); Creatinine Clr Calc Pharmacy 56.2 ml/min; Est GFR (African American) 37.1 ml/min; Potassium 3.3 mmol/L (3.5-5.1)
--- NOTE | 2021-06-25 08:34 | Cardiology Consultation ---
Date of Consultation June 25, 2021 Assessment & Plan (1) Nonadherence to medication: (2) Dietary noncompliance: (3) Breath shortness: (4) Exertional dyspnea: (5) SSS (sick sinus syndrome): (6) Syncope: (7) Status post placement of cardiac pacemaker: (8) CKD (chronic kidney disease): (9) Morbid obesity: (10) Right-sided congestive heart failure: (11) GERD with apnea: (12) Lower extremity edema: (13) Chronic atrial fibrillation: (14) CAD (coronary artery disease): (15) HTN (hypertension): (16) OSCAR (obstructive sleep apnea): (17) Cor pulmonale: The patient presents with recurrent on him overload due to recurrent dietary noncompliance and likely medication noncompliance as well. Once again the pathophysiology and treatment were reviewed with the patient Once again, patient counseled great lengths on the need for adherence to medications as well as fluid and sodium intake restriction. Patient states that he understands but cannot comply Continue to diurese with previous regimen as it was successful on last admission Strict I/O's Fluid restriction Daily weights Heparin drip as a bridge with a goal INR of 2 to 3. He does appear more toxic this presentation. White count with a left shift. BC pending will add sputum and urine cultures CT of chest, abdomen and pelvis will also check psa given urinary changes as well, ?prostatitis History of Present Illness Reason for Consultation: acute volume overload Requesting Physician: Dr. Ashford Attending Physician: Dante Huynh MD History of Present Illness 60 yo male presented to [facility] ED on 06/24/21 at the direction MISAEL Castaneda with an approximate 50# weight gain along with worsening sob and abdominal distention. Labs checked and found to have worsening renal function as well. Noted 8# weight gain over last 2 days. As noted on multiple previous hospitalizations, he admits to not complying with dietary restrictions. This has significantly worsened as of late with the patient noting that his previous caregiver, his sister, has moved out of the area. He does appear toxic upon presentation, a decrease from baseline. Upon, further questioning, does have some occasional abdominal pain and recent decrease in urination. Past medical history: 1. Premature atherosclerotic coronary disease status post coronary artery bypass grafting x4 in 2001 at age 43. 2. Permanent atrial fibrillation on chronic anticoagulation. 3. 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 Obstructive sleep apnea on BiPAP, supplementation with past oxygen use as well nocturnally- noncompliance 5. Morbid obesity. 6. Hyperlipidemia. 7. Hypertension. 8. Cor pulmonale with chronic class 3 right heart failure and edema 9. Known Medication and dietary noncompliance Allergies Allergy/AdvReac Type Severity Reaction Status Date / Time morphine AdvReac Mild nausea and Verified 06/24/21 22:33 vomiting Home Medications Medication Instructions Recorded Confirmed Type albuterol sulfate 90 mcg/actuation 2 puff INHALATION QID PRN 05/04/18 06/24/21 History aerosol inhaler (ProAir HFA) gabapentin 600 mg tablet 600 mg PO BID 05/04/18 06/24/21 History isosorbide mononitrate 30 mg 30 mg PO QAM 05/04/18 06/24/21 History tablet,extended release 24 hr lamotrigine 200 mg tablet 200 mg PO BID 05/04/18 06/24/21 History (Lamictal) nitroglycerin 0.4 mg sublingual 0.4 mg SUBLINGUAL DIRECTED PRN 05/04/18 06/24/21 History tablet (Nitrostat) topiramate 25 mg tablet (Topamax) 25 mg PO BID 05/04/18 06/24/21 History zolpidem 5 mg tablet (Ambien) 5 mg PO HS PRN 05/04/18 06/24/21 History albuterol sulfate 2.5 mg INHALATION Q6 PRN 03/03/20 06/24/21 History aripiprazole 5 mg tablet (Abilify) 5 mg PO QAM 03/03/20 06/24/21 History escitalopram oxalate 10 mg tablet 10 mg PO DAILY 03/03/20 06/24/21 History (Lexapro) fluticasone 250 mcg-salmeterol 50 1 inh INHALATION BID 03/03/20 06/24/21 History mcg/dose blistr powdr for inhalation (Advair Diskus) rosuvastatin 40 mg tablet (Crestor) 40 mg PO DAILY 03/03/20 06/24/21 History metoprolol succinate 50 mg 50 mg PO DAILY 02/05/21 06/24/21 History tablet,extended release 24 hr quetiapine 200 mg tablet (Seroquel) 200 mg PO HS 02/05/21 06/24/21 History spironolactone 50 mg tablet 50 mg PO BID 02/05/21 06/24/21 History warfarin 5 mg tablet 5 mg PO QPM 02/05/21 06/24/21 History ezetimibe 10 mg tablet 10 mg PO DAILY 06/24/21 06/24/21 History metolazone 5 mg tablet 5 mg PO MOWEFR 06/24/21 06/24/21 History potassium chloride 20 mEq 40 meq PO MOWEFR 06/24/21 06/24/21 History tablet,extended release(part/cryst) potassium chloride 20 mEq 60 meq PO TID 06/24/21 06/24/21 History tablet,extended release(part/cryst) sucralfate 1 gram tablet 1 g PO DAILY 06/24/21 06/24/21 History tamsulosin 0.4 mg capsule 0.4 mg PO HS 06/24/21 06/24/21 History torsemide 20 mg tablet 100 mg PO BID 06/24/21 06/24/21 History Patient History Medical History (Updated 06/25/21 @ 09:26 by Romaine Ashford MD) CAD (coronary artery disease) CAD (coronary artery disease) Chronic atrial fibrillation Chronic back pain CKD (chronic kidney disease) stage 3, GFR 30-59 ml/min Cor pulmonale Depression HTN (hypertension) Hyperlipidemia Hypertension Obesities, morbid OSCAR (obstructive sleep apnea) Volume overload Surgical History S/P CABG x 4 Social History Smoking Status: Never smoker Second Hand Exposure: No; Do You Dip or Chew Tobacco: Yes; Hx Alcohol Use: No Hx Substance Use: No Preferred Language: Spanish Communication Ability: Effective Hearing Ability: Normal Sub Arc Operator Required: No Beliefs That Will Affect Care: None marital status: Single Current Living Situation: Alone Current Living Situation Comment: fist floor appartment Other Information That Helps Us Care for You: No Feels Safe at Home: Yes Safety Concerns: Feels Safe At This Time Assistive Devices: CPAP, Glasses and Nebulizer Review of Systems Review of Systems: All systems reviewed & are unremarkable except as noted in HPI & below Physical Exam Physical Exam: General: Awake, alert and oriented x 3. No acute distress. HEENT: Normocephalic, atraumatic. Pupils equal, round and reactive to light and accommodation. Extraocular muscles are intact. Anicteric sclera. Moist mucous membranes. Neck: No JVD. No bruit. Cardiovascular: irregularly irregular, unable to appreciate murmur, rub or gallop. Pulmonary: Clear to auscultation bilaterally. No rales, rhonchi, or wheezing. Abdomen: Bowel sounds x 4, soft. No rebound, guarding or tenderness. No organomegaly. Extremities: No clubbing, cyanosis or edema. +2 pedal pulses bilaterally. Skin: Warm and dry. Results & Data ([facility]) Vital Signs (Past 12 Hours) Vital Signs Temp Pulse Pulse Resp BP Pulse Ox 06/25/21 07:44 60 14 96 06/25/21 04:24 20 95 06/25/21 04:04 36.5 C 66 18 122/78 94 06/25/21 01:09 36.5 C 72 20 120/74 94 06/25/21 00:18 36.7 C 77 16 103/66 96 (1) CKD (chronic kidney disease) Chronic kidney disease stage: unspecified stage Qualified Code(s): N18.9 - Chronic kidney disease, unspecified (2) Syncope Syncope type: unspecified Qualified Code(s): R55 - Syncope and collapse
[2021-06-25] MEDS: lamoTRIgine 100 MG TAB PO SCH ×2 (09:04→20:53)
[2021-06-25] MEDS: ISOSORBIDE MONO EXTENDED REL 30 MG TABCR PO SCH (09:04)
[2021-06-25] MEDS: ESCITALOPRAM OXALATE 10 MG TAB PO SCH (09:04)
[2021-06-25] MEDS: METOPROLOL SUCC 50MG EXT REL TAB PO SCH (09:04)
[2021-06-25] MEDS: ARIPiprazole 5 MG TAB PO SCH (09:04)
[2021-06-25] MEDS: TOPIRAMATE 25 MG TAB PO SCH ×2 (09:05→20:54)
[2021-06-25] MEDS: FLUTICASONE/VILANTEROL 200/25MCG 14 PUFFS/INHALER INH SCH (09:05)
[2021-06-25] MEDS: ROSUVASTATIN CALCIUM 20 MG TAB PO SCH (09:05)
[2021-06-25] MEDS: SUCRALFATE 1 GM TAB PO SCH (09:05)
[2021-06-25] MEDS: oxyCODONE HCL IR 5 MG TAB (IMMEDIATE RELEASE) PO PRN ×3 (09:14→20:51)
[2021-06-25] MEDS ORDERED: POTASSIUM CHLORIDE CRTAB 20 MEQ TABCR PO STA (11:32)
--- NOTE | 2021-06-25 12:56 | Consultation Report ---
NEPHROLOGY CONSULTATION NOTE REASON FOR CONSULTATION: Acute renal failure on background chronic kidney disease in a patient with severe congestive heart failure. HISTORY OF PRESENT ILLNESS: The patient is a 60-year-old white male who presented to the Emergency D epartment yesterday because of approximately 50-pound weight gain along with worsening shortness of b reath and abdominal distention for the last few weeks. Outpatient labs done also showed worsening ki dney function. The patient has had multiple previous hospitalizations secondary to noncompliance wit h dietary restriction as well as medication nonadherence. At this time, he is still in the emergency department and has a Tellez catheter. He received one dose of IV Lasix and with that he has made glen e urine, but as of right now, he is not written for any Lasix. Creatinine was 2.18 this morning and was 2.26 yesterday. Few months back, he had a creatinine of 1.5. The patient is able to give me a d etailed account of his medical problem. He denies having any fever, productive cough, nausea, vomiti ng, diarrhea. Positive review of systems included weight gain, shortness of breath, orthopnea, incre asing edema, and abdominal distention. PAST MEDICAL AND SURGICAL HISTORY: Includes premature atherosclerotic coronary artery disease, statu s post CABG x4 in 2001 at age 43; chronic atrial fibrillation, on chronic anticoagulation; tachybrady syndrome, status post pacemaker; obstructive sleep apnea, on BiPAP with noncompliance; morbid obesit y; hyperlipidemia; hypertension; cor pulmonale with chronic class III right heart failure and edema; known medication and dietary noncompliance. ALLERGIES: LIST REVIEWED AND INCLUDES MORPHINE, NAUSEA, VOMITING. MEDICATIONS: Home medication list was reviewed in full detail and is as per the medicine reconciliat ion list. Of special interest to nephrology, he takes metolazone 5 mg Monday, Monday, Monday; tor semide 100 mg twice daily; spironolactone 50 mg twice daily; as well as multiple other medications. PAST SURGICAL HISTORY: Includes CABG x4. SOCIAL HISTORY: He never smoked. No alcohol. He is single. He lives in a first floor apartment. He has a CPAP nebulizer, but does not use CPAP consistently. REVIEW OF SYSTEMS: As detailed in HPI. Unless stated otherwise, 12 systems reviewed and negative. PHYSICAL EXAMINATION: GENERAL: A middle-aged white male who is morbidly obese. He is in somewhat respiratory distress. H e is awake, alert, oriented x3. VITAL SIGNS: Blood pressure is 122/78, pulse rate 60, temperature 36.5 degrees Celsius, 96% on room air. NECK: Very obese, so cannot assess JVD. CHEST: Bilateral decreased breath sounds, occasional crackles. CARDIOVASCULAR: S1 and S2, irregular. Soft systolic murmur heard. ABDOMEN: Soft, nontender, but very distended with abdominal wall edema. EXTREMITIES: Show 2-3+ edema bilaterally. GENITOURINARY: He has a Tellez catheter with a bag full of urine. Since admission, he has made 1700 m L of urine. LABORATORY TESTS: His creatinine was 1.5 few months back, on admission was 2.26, this morning is sli ghtly better at 2.18. Sodium is 133, potassium is 3.3, chloride 92, CO2 of 32, BUN 41. Lactic acid 1.1, calcium 9.0, albumin 3.3. BNP 438. IMAGING DATA: Chest x-ray shows marked cardiomegaly and cardiac pacemaker. ASSESSMENT AND PLAN: A 60-year-old male with very significant and premature cardiac problems, now ad mitted with acute exacerbation of congestive heart failure with decompensation. This is associated w ith acute renal failure for which I have been consulted. Acute renal failure. From a baseline of 1.1, creatinine is slightly higher at 2.18 at this time, but there is no question about the significant weight gain he has had associated with abdominal wall sonja a, lower extremity edema, and shortness of breath. He received one dose of Lasix, but with that crea tinine actually came down with significantly more increased urine output. This is an encouraging sig n. I would continue with the Lasix at least 80 IV twice daily, given that he is already on a fairly heavy dose at home. I would continue to diurese regardless of slight changes in the kidney function. Sodium is low as a result of hemodilution. Potassium is low because of IV Lasix and we will supple ment. Urine test done yesterday showed negative blood and negative protein and this goes more with a cardiorenal type picture. Job ID: [id number]
[2021-06-25] MEDS: POTASSIUM CHLORIDE CRTAB 20 MEQ TABCR PO SCH ×2 (12:59→20:51)
[2021-06-25] MEDS: FUROSEMIDE 40 MG/4 ML VIAL IV SCH ×2 (12:59→20:57)
--- NOTE | 2021-06-25 16:43 | CT Scan Report ---
CT chest diagnostic wo con, CT abd pelvis wo con CT DOSE: 3654.17 mGy.cm CLINICAL HISTORY: 60 years-old Male with abnormal cxr. Leukocytosis with cardiomegaly and acute illn ess. TECHNIQUE: Multiaxial CT images of the chest, abdomen and pelvis were performed without contrast. A dose lowering technique was utilized adhering to the principles of ALARA. COMPARISON: Chest radiograph 06/24/2021, chest CT 02/07/2021 FINDINGS: This study secondary to patient body habitus. CT CHEST: No thyroid nodule. Left subclavian pacer. Marked cardiomegaly with prior median sternotomy and CABG. Extensive [place] coronary artery calcifications. Mediastinal lipomatosis with prominence of the peric ardial fat. Lipomatous hypertrophy of the interatrial septum. No pericardial effusion. Atherosclerosi s of the thoracic aorta without aneurysm. No adenopathy. Calcified right hilar lymph nodes redemonstr ated. No pneumothorax, pleural effusion, or overt pulmonary edema. Calcified granulomata of the right lower lobe. Bronchial wall thickening. Linear subsegmental left greater than right bibasilar consolidative opacities. There are no suspicious pulmonary nodules or masses. No lobar airspace consolidation. Sug gested tracheobronchomalacia. The imaged soft tissues are unremarkable with gynecomastia. No acute fr acture. Degenerative changes of the shoulders and spine. Mild superior endplate compression involving several thoracic segment appears chronic. CT ABDOMEN/PELVIS: No pneumatosis or pneumoperitoneum. Portions of the patient's anatomy outside the isrve-ha-wyrj secon spenser to body habitus. There is associated beam hardening artifact. Calcified granulomata of the splee n. Hepatomegaly with suggested mild hepatic steatosis. Mild marginal nodularity of the liver is equiv ocal for early cirrhotic change. Unremarkable pancreas, gallbladder and adrenal glands. No hydronephr osis. Exophytic hypodense foci the left kidney suggestive of cysts. There is intermediate attenuating indeterminate 2.1 cm lesion of the left kidney with [place] of 25. No renal or ureteral calculi o r hydronephrosis. The compressed urinary bladder with Tellez catheter. Unremarkable prostate. No abdom inal aortic aneurysm or adenopathy. No bowel obstruction or bowel wall thickening. Mild fecal retention. Normal appendix. No ascites or m esenteric inflammation. Degenerative changes of the spine, pelvis and hips. No acute fracture identif ied. IMPRESSION: 1. Linear subsegmental bibasilar consolidative opacities suggest atelectasis. 2. No acute intra-abdominal or intrapelvic abnormality. 3. Prior granulomatous disease. 4. Cardiomegaly with mediastinal lipomatosis and lipomatous hypertrophy of the intra-atrial septum re demonstrated. 5. Indeterminate intermediate attenuating 2.1 cm lesion of the interpolar left kidney, possibly a com plex cyst. This could be correlated with a nonemergent follow-up renal ultrasound to exclude a solid lesion. 6. Additional findings as above. ACT 112: Negative or not required by law. Electronically signed by: Darell Bland M.D. 06/25/2021 4:42 PM
[2021-06-25] MEDS: WARFARIN SOD 7.5 MG TAB PO SCH (17:35)
--- NOTE | 2021-06-25 18:20 | Electrocardiogram Report ---
Test Reason : Blood Pressure : / mmHG Vent. Rate : 090 BPM Atrial Rate : 075 BPM P-R Int : 000 ms QRS Dur : 102 ms QT Int : 352 ms P-R-T Axes : 000 089 249 degrees QTc Int : 430 ms Atrial fibrillation Nonspecific ST and T wave abnormality Abnormal ECG When compared with ECG of 08-MAR-2021 14:41, No significant change Confirmed by Heriberto Grijalva ([id number]) on 06/25/2021 6:20:28 PM Referred By: Confirmed By:Heriberto Grijalva
--- NOTE | 2021-06-25 18:40 | Electrocardiogram Report ---
Test Reason : Blood Pressure : / mmHG Vent. Rate : 062 BPM Atrial Rate : 326 BPM P-R Int : 000 ms QRS Dur : 190 ms QT Int : 522 ms P-R-T Axes : 000 239 062 degrees QTc Int : 529 ms Ventricular-paced rhythm with occasional Premature ventricular complexes Nonspecific ST and T wave abnormality Abnormal ECG When compared with ECG of 24-JUN-2021 16:08, Electronic ventricular pacemaker now present Confirmed by Heriberto Grijalva ([id number]) on 06/25/2021 6:39:55 PM Referred By: REFERRED SELF Confirmed By:Heriberto Grijalva
[2021-06-25] MEDS: TAMSULOSIN HCL 0.4 MG CAP PO SCH (21:46)
--- NOTE | 2021-06-25 23:22 | Hospitalist Progress Note ---
Date of Service June 25, 2021 Assessment & Plan (1) Decompensated heart failure: Plan: Right-sided heart failure Present on admission with worsening shortness of breath associated with weight gain CXR showed Marked cardiomegaly and cardiac pacemaker with no radiographic evidence of congestive failure. CT chest showed Cardiomegaly with mediastinal lipomatosis and lipomatous hypertrophy of the intra-atrial septum redemonstrated. Received IV Lasix 60mg on admission Cardiology on board Currently on Lasix 80 mg IV twice daily Continue spironolactone Continue fluid restriction with 1.5L Continue monitor I/O Monitor BMP while on diuretic Chronic A. fib Sick sinus syndrome Single-chamber pacemaker i Continue metoprolol 50 mg daily Continue Coumadin Continue heparin drip for now until INR at goal (2-3) H/O CAD S/P CABG Continue statin,aspirin, Isosorbide and Lopressor Hyperlipidemia On Rosuvastatin Obstructive sleep apnea CPAP at bedtime CKD III Creatinine at baseline Monitor renal function Avoid Nephrotoxic agents as able Morbid obesity BMI:65.8 Counseling about weight loss Depression Continue home medications HTN Continue Lopressor and Imdur Monitor BP DVT Px: on Coumadin/IV heparin drip Disposition Will discharge once medically stable CODE STATUS full code Admission and Anticipated Discharge Date Admission Date: June 24, 2021 Subjective Patient was seen and examined for follow-up of shortness of breath due to volume overload Lying in bed no acute distress. He said his breathing feels much better He said that at home he was having shortness of breath with minimal exertion He has not been watching his fluid intake He said that he has been diuresing well Denies any chest pain, palpitation, dizziness, shortness of breath. Review of Systems Review of Systems: All systems reviewed & are unremarkable except as noted in Subjective Physical Exam Physical Exam: General- No acute distress Head- atraumatic Eyes- PERRL, EOMI, ENT- oropharynx clear Neck- supple, no JVD Lungs- clear to auscultation Heart- irregular rhythm; no murmur Abdomen- normal bowel sounds, soft, nontender Extremities- no calf tenderness, +edema Neuro- alert, oriented x 3; PERRL, EOMI; no facial palsy; no dysarthria Skin- warm & dry Results & Data Results & Data ([facility]) Vital Signs (Past 12 Hours) Vital Signs Temp Pulse Pulse Resp BP BP Pulse Ox 06/25/21 23:08 36.9 C 79 22 122/83 97 06/25/21 23:00 66 06/25/21 22:57 15 95 06/25/21 20:13 37.1 C 74 22 98/60 L 93 06/25/21 18:40 36.9 C 76 22 105/72 95 06/25/21 15:50 78 20 111/79 94 06/25/21 15:39 103/52 L 94
[2021-06-26] MEDS: oxyCODONE HCL IR 5 MG TAB (IMMEDIATE RELEASE) PO PRN ×3 (04:16→21:31)
[2021-06-26] MEDS: FUROSEMIDE 40 MG/4 ML VIAL IV SCH ×2 (08:10→21:31)
[2021-06-26] MEDS: POTASSIUM CHLORIDE CRTAB 20 MEQ TABCR PO SCH ×3 (08:10→21:30)
[2021-06-26] MEDS: FLUTICASONE/VILANTEROL 200/25MCG 14 PUFFS/INHALER INH SCH (08:10)
[2021-06-26] MEDS: ESCITALOPRAM OXALATE 10 MG TAB PO SCH (08:11)
[2021-06-26] MEDS: SUCRALFATE 1 GM TAB PO SCH (08:11)
[2021-06-26] MEDS: ARIPiprazole 5 MG TAB PO SCH (08:11)
[2021-06-26] MEDS: TOPIRAMATE 25 MG TAB PO SCH ×2 (08:11→21:28)
[2021-06-26] MEDS: METOPROLOL SUCC 50MG EXT REL TAB PO SCH (08:11)
[2021-06-26] MEDS: lamoTRIgine 100 MG TAB PO SCH ×2 (08:11→21:30)
[2021-06-26] MEDS: GABAPENTIN 600 MG TAB PO SCH ×2 (08:11→21:28)
[2021-06-26] MEDS: ISOSORBIDE MONO EXTENDED REL 30 MG TABCR PO SCH (08:11)
[2021-06-26] MEDS: ROSUVASTATIN CALCIUM 20 MG TAB PO SCH (09:07)
[2021-06-26 10:15] LABS: Calcium 9.2 mg/dl (8.5-10.1); Est GFR (African American) 33.8 ml/min; Est GFR (Non-African American) 29.2 ml/min; Potassium 3.1 mmol/L (3.5-5.1)
[2021-06-26 10:18] LABS: INR 2.8 (0.9-1.1); Prothrombin Time 26.1 Seconds (9.0-12.0)
--- NOTE | 2021-06-26 11:25 | Nephrology Progress Note ---
Date of Service June 26, 2021 Assessment & Plan Admission and Anticipated Discharge Date Admission Date: June 24, 2021 Subjective Making urine but is not a brisk diuresis--less than 2 liter. Still has lot of edema and SOB. PHYSICAL EXAMINATION: GENERAL: A middle-aged white male who is morbidly obese. He is in somewhat respiratory distress. He is awake, alert, oriented x3. NECK: Very obese, so cannot assess JVD. CHEST: Bilateral decreased breath sounds, occasional crackles. CARDIOVASCULAR: S1 and S2, irregular. Soft systolic murmur heard. ABDOMEN: Soft, nontender, but very distended with abdominal wall edema. EXTREMITIES: Show 2-3+ edema bilaterally. GENITOURINARY: He has a Tellez catheter with a bag full of urine. Since admission, he has made 1700 mL of urine. LABORATORY TESTS: His creatinine was 1.5 few months back, on admission was 2.26, K still low at 3.2 Creat in low 2's IMAGING DATA: Chest x-ray shows marked cardiomegaly and cardiac pacemaker. ASSESSMENT AND PLAN: A 60-year-old male with very significant and premature cardiac problems, now admitted with acute exacerbation of congestive heart failure with decompensation. This is associated with acute renal failure for which I have been consulted. Acute renal failure. From a baseline of 1.1, creatinine is slightly higher at low 2's at this time, but there is no question about the significant weight gain he has had associated with abdominal wall edema, lower extremity edema, and shortness of breath. He received one dose of Lasix, but with that creatinine actually came down with significantly more increased urine output. This is an encouraging sign. I would continue with the Lasix at least 80 IV twice daily, given that he is already on a fairly heavy dose at home. I would continue to diurese regardless of slight changes in the kidney function. Sodium is low as a result of hemodilution. Potassium is low because of IV Lasix and we will supplement. Urine test done yesterday showed negative blood and negative protein and this goes more with a cardiorenal type picture. Rec: Change lasix to 100 iv bid--urine Output aim > 3 liters per day. given how low K is Dont want to use The Metolazone yet. But Add Aldactone 25 bid Raise potassium to 40 tid. Expect and accept higher baseline creat going forward--it will be labile. Results & Data ([facility]) Vital Signs (Past 12 Hours) Vital Signs Temp Pulse Pulse Resp BP Pulse Ox 06/26/21 11:14 36.6 C 70 22 121/75 91 06/26/21 07:27 36.7 C 77 18 127/80 94 06/26/21 03:58 36.6 C 69 22 149/70 H 97 06/26/21 03:07 68 13 97
--- NOTE | 2021-06-26 13:57 | Cardiology Progress Note ---
Date of Service June 26, 2021 Assessment & Plan (1) Nonadherence to medication: (2) Dietary noncompliance: (3) Breath shortness: (4) Exertional dyspnea: (5) SSS (sick sinus syndrome): (6) Syncope: (7) Status post placement of cardiac pacemaker: (8) CKD (chronic kidney disease): (9) Morbid obesity: (10) Right-sided congestive heart failure: (11) GERD with apnea: (12) Lower extremity edema: (13) Chronic atrial fibrillation: (14) CAD (coronary artery disease): (15) HTN (hypertension): (16) OSCAR (obstructive sleep apnea): (17) Cor pulmonale: Plan: The patient presents with recurrent on him overload due to recurrent dietary noncompliance and likely medication noncompliance as well. Once again the pathophysiology and treatment were reviewed with the patient Once again, patient counseled great lengths on the need for adherence to medications as well as fluid and sodium intake restriction. Patient states that he understands but cannot comply Continue to diurese with previous regimen as it was successful on last admission Strict I/O's Fluid restriction Daily weights Heparin drip as a bridge with a goal INR of 2 to 3. infectious workup unremarkable appreciate nephrology input Admission and Anticipated Discharge Date Admission Date: June 24, 2021 Subjective Patient seen and examined, chart reviewed. Appears much better today. Diuresing well and states shortness of breath is improving. Denies chest pain or palpitations. Telemetry reviewed: Ventricularly paced rhythm. Review of Systems Review of Systems: All systems reviewed & are unremarkable except as noted in HPI & below Physical Exam Physical Exam: General: Awake, alert and oriented x 3. No acute distress. HEENT: Normocephalic, atraumatic. Pupils equal, round and reactive to light and accommodation. Extraocular muscles are intact. Anicteric sclera. Moist mucous membranes. Neck: No JVD. No bruit. Cardiovascular: irregularly irregular, unable to appreciate murmur, rub or gallop. Pulmonary: Clear to auscultation bilaterally. No rales, rhonchi, or wheezing. Abdomen: Bowel sounds x 4, soft. No rebound, guarding or tenderness. No organomegaly. Extremities: No clubbing, cyanosis or edema. +2 pedal pulses bilaterally. Skin: Warm and dry. Results & Data ([facility]) Vital Signs (Past 12 Hours) Vital Signs Temp Pulse Pulse Resp BP Pulse Ox 06/26/21 11:14 36.6 C 70 22 121/75 91 06/26/21 07:27 36.7 C 77 18 127/80 94 06/26/21 03:58 36.6 C 69 22 149/70 H 97 06/26/21 03:07 68 13 97 (1) Syncope Syncope type: unspecified Qualified Code(s): R55 - Syncope and collapse (2) CKD (chronic kidney disease) Chronic kidney disease stage: unspecified stage Qualified Code(s): N18.9 - Chronic kidney disease, unspecified
[2021-06-26] MEDS: WARFARIN SOD 7.5 MG TAB PO SCH (15:52)
[2021-06-26] MEDS: NICOTINE 14 MG/24 HR PATCH TD SCH (15:52)
--- NOTE | 2021-06-26 19:36 | Hospitalist Progress Note ---
Date of Service June 26, 2021 Assessment & Plan (1) Decompensated heart failure: Plan: Right-sided heart failure Present on admission with worsening shortness of breath associated with weight gain CXR showed Marked cardiomegaly and cardiac pacemaker with no radiographic evidence of congestive failure. CT chest showed Cardiomegaly with mediastinal lipomatosis and lipomatous hypertrophy of the intra-atrial septum redemonstrated. Received IV Lasix 60mg on admission Nephrology and cardiology on board to help with diuretic management Lasix increased to 100 mg twice daily Continue spironolactone 25 mg twice daily Continue fluid restriction with 1.5L Continue monitor I/O Monitor BMP while on diuretic Chronic A. fib Sick sinus syndrome Single-chamber pacemaker i Continue metoprolol 50 mg daily Continue Coumadin, INR 2.8 today IV heparin drip was discontinued Hypokalemia Potassium 3.1 today K replaced Continue monitor BMP while on IV Lasix H/O CAD S/P CABG Continue statin,aspirin, Isosorbide and Lopressor Hyperlipidemia On Rosuvastatin Obstructive sleep apnea CPAP at bedtime CKD III Creatinine at baseline Monitor renal function Avoid Nephrotoxic agents as able Morbid obesity BMI:65.8 Counseling about weight loss Depression Continue home medications HTN Continue Lopressor and Imdur Monitor BP DVT Px: on Coumadin with INR 2.8 Disposition Will discharge once medically stable CODE STATUS full code Admission and Anticipated Discharge Date Admission Date: June 24, 2021 Subjective Patient was seen and examined for follow-up of shortness of breath due to volume overload Lying in bed no acute distress. He said his breathing feels much better He said that he has been diuresing well Denies any chest pain, palpitation, dizziness, shortness of breath. Review of Systems Review of Systems: All systems reviewed & are unremarkable except as noted in Subjective Physical Exam Physical Exam: General- No acute distress Head- atraumatic Eyes- PERRL, EOMI, ENT- oropharynx clear Neck- supple, no JVD Lungs- clear to auscultation Heart- irregular rhythm; no murmur Abdomen- normal bowel sounds, soft, nontender Extremities- no calf tenderness, +edema Neuro- alert, oriented x 3; PERRL, EOMI; no facial palsy; no dysarthria Skin- warm & dry Results & Data Results & Data ([facility]) Vital Signs (Past 12 Hours) Vital Signs Temp Pulse Resp BP Pulse Ox 06/26/21 15:14 37.1 C 75 18 121/73 92 06/26/21 11:14 36.6 C 70 22 121/75 91
[2021-06-26] MEDS: TAMSULOSIN HCL 0.4 MG CAP PO SCH (21:28)
[2021-06-26] MEDS: SPIRONOLACTONE 25 MG TAB PO SCH (21:29)
[2021-06-26] MEDS: FUROSEMIDE INJ 20 MG/2 ML VIAL IV SCH (21:30)
[2021-06-26] MEDS: QUEtiapine FUMARATE 200 MG TAB PO SCH (23:14)
[2021-06-27 07:18] LABS: INR 3.9 (0.9-1.1); Prothrombin Time 35.1 Seconds (9.0-12.0)
[2021-06-27 07:47] LABS: BUN Creatinine Ratio 21.8 (10-20); Calcium 9.4 mg/dl (8.5-10.1); Creatinine Clr Calc Pharmacy 48.4 ml/min; Est GFR (African American) 32.3 ml/min; Est GFR (Non-African American) 27.9 ml/min; Potassium 3.8 mmol/L (3.5-5.1)
[2021-06-27] MEDS: ROSUVASTATIN CALCIUM 20 MG TAB PO SCH (08:23)
[2021-06-27] MEDS: ARIPiprazole 5 MG TAB PO SCH (08:23)
[2021-06-27] MEDS: SUCRALFATE 1 GM TAB PO SCH (08:23)
[2021-06-27] MEDS: ISOSORBIDE MONO EXTENDED REL 30 MG TABCR PO SCH (08:23)
[2021-06-27] MEDS: ESCITALOPRAM OXALATE 10 MG TAB PO SCH (08:23)
[2021-06-27] MEDS: POTASSIUM CHLORIDE CRTAB 20 MEQ TABCR PO SCH ×3 (08:24→20:04)
[2021-06-27] MEDS: TOPIRAMATE 25 MG TAB PO SCH ×2 (08:24→20:05)
[2021-06-27] MEDS: METOPROLOL SUCC 50MG EXT REL TAB PO SCH (08:24)
[2021-06-27] MEDS: SPIRONOLACTONE 25 MG TAB PO SCH ×2 (08:24→20:05)
[2021-06-27] MEDS: NICOTINE 14 MG/24 HR PATCH TD SCH (08:25)
[2021-06-27] MEDS: FLUTICASONE/VILANTEROL 200/25MCG 14 PUFFS/INHALER INH SCH (08:25)
[2021-06-27] MEDS: lamoTRIgine 100 MG TAB PO SCH ×2 (08:25→20:04)
[2021-06-27] MEDS: GABAPENTIN 600 MG TAB PO SCH ×2 (08:25→20:03)
[2021-06-27] MEDS: FUROSEMIDE 40 MG/4 ML VIAL IV SCH ×2 (08:26→20:02)
[2021-06-27] MEDS: oxyCODONE HCL IR 5 MG TAB (IMMEDIATE RELEASE) PO PRN ×2 (08:28→20:05)
[2021-06-27] MEDS: FUROSEMIDE INJ 20 MG/2 ML VIAL IV SCH ×2 (08:28→20:02)
--- NOTE | 2021-06-27 12:48 | Cardiology Progress Note ---
Date of Service June 27, 2021 Assessment & Plan (1) Nonadherence to medication: (2) Dietary noncompliance: (3) Breath shortness: (4) Exertional dyspnea: (5) SSS (sick sinus syndrome): (6) Syncope: (7) Status post placement of cardiac pacemaker: (8) CKD (chronic kidney disease): (9) Morbid obesity: (10) Right-sided congestive heart failure: (11) GERD with apnea: (12) Lower extremity edema: (13) Chronic atrial fibrillation: (14) CAD (coronary artery disease): (15) HTN (hypertension): (16) OSCAR (obstructive sleep apnea): (17) Cor pulmonale: Plan: The patient presents with recurrent on him overload due to recurrent dietary noncompliance and likely medication noncompliance as well. Once again the pathophysiology and treatment were reviewed with the patient Once again, patient counseled great lengths on the need for adherence to medications as well as fluid and sodium intake restriction. Patient states that he understands but cannot comply Continue to diurese with previous regimen as it was successful on last admission Strict I/O's Fluid restriction Daily weights INR is now supratherapeutic infectious workup unremarkable appreciate nephrology input Admission and Anticipated Discharge Date Admission Date: June 24, 2021 Subjective Patient seen and examined, chart reviewed. States he is feeling relatively well today. Notes the shortness of breath and lower extremity edema continues to improve. Denies chest pain, palpitations or lightheadedness. Telemetry reviewed: Ventricularly paced rhythm. Review of Systems Review of Systems: All systems reviewed & are unremarkable except as noted in HPI & below Physical Exam Physical Exam: General: Awake, alert and oriented x 3. No acute distress. HEENT: Normocephalic, atraumatic. Pupils equal, round and reactive to light and accommodation. Extraocular muscles are intact. Anicteric sclera. Moist mucous membranes. Neck: No JVD. No bruit. Cardiovascular: irregularly irregular, unable to appreciate murmur, rub or gallop. Pulmonary: Clear to auscultation bilaterally. No rales, rhonchi, or wheezing. Abdomen: Bowel sounds x 4, soft. No rebound, guarding or tenderness. No organomegaly. Extremities: No clubbing, cyanosis or edema. +2 pedal pulses bilaterally. Skin: Warm and dry. Results & Data ([facility]) Vital Signs (Past 12 Hours) Vital Signs Temp Pulse Pulse Resp BP Pulse Ox 06/27/21 11:32 36.8 C 68 20 91/57 L 91 06/27/21 07:45 36.6 C 84 19 100/68 96 06/27/21 03:28 67 15 96 06/27/21 03:08 36.7 C 67 20 135/86 96 (1) Syncope Syncope type: unspecified Qualified Code(s): R55 - Syncope and collapse (2) CKD (chronic kidney disease) Chronic kidney disease stage: unspecified stage Qualified Code(s): N18.9 - Chronic kidney disease, unspecified
--- NOTE | 2021-06-27 15:02 | Nephrology Progress Note ---
Date of Service June 27, 2021 Assessment & Plan Admission and Anticipated Discharge Date Admission Date: June 24, 2021 Subjective Subjective Did make much more urine--3500 ml yesterday. Still has lot of edema and SOB. PHYSICAL EXAMINATION: GENERAL: A middle-aged white male who is morbidly obese. He is in somewhat respiratory distress. He is awake, alert, oriented x3. NECK: Very obese, so cannot assess JVD. CHEST: Bilateral decreased breath sounds, occasional crackles. CARDIOVASCULAR: S1 and S2, irregular. Soft systolic murmur heard. ABDOMEN: Soft, nontender, but very distended with abdominal wall edema. EXTREMITIES: Show 2-3+ edema bilaterally. GENITOURINARY: He has a Tellez catheter with a bag full of urine. Since admission, he has made 1700 mL of urine. LABORATORY TESTS: His creatinine was 1.5 few months back, on admission was 2.26, K still low at 3.2 Creat in low 2's IMAGING DATA: Chest x-ray shows marked cardiomegaly and cardiac pacemaker. ASSESSMENT AND PLAN: A 60-year-old male with very significant and premature cardiac problems, now admitted with acute exacerbation of congestive heart failure with decompensation. This is associated with acute renal failure for which I have been consulted. Acute renal failure. From a baseline of 1.1, creatinine is slightly higher at low 2's at this time, but there is no question about the significant weight gain he has had associated with abdominal wall edema, lower extremity edema, and shortness of breath. He received one dose of Lasix, but with that creatinine actually came down with significantly more increased urine output. This is an encouraging sign. I would continue with the Lasix at least 80 IV twice daily, given that he is already on a fairly heavy dose at home. I would continue to diurese regardless of slight changes in the kidney function. Sodium is low as a result of hemodilution. Potassium is low because of IV Lasix and we will supplement. Urine test done yesterday showed negative blood and negative protein and this goes more with a cardiorenal type picture. Rec: Conitnue lasix to 100 iv bid--urine Output aim > 3 liters per day. given how low K is Dont want to use The Metolazone yet. But conitnue Aldactone 25 bid Continue potassium but at 40 bid-lowered Expect and accept higher baseline creat going forward--it will be labile. Results & Data ([facility]) Vital Signs (Past 12 Hours) Vital Signs Temp Pulse Pulse Resp BP Pulse Ox 06/27/21 11:32 36.8 C 68 20 91/57 L 91 06/27/21 07:45 36.6 C 84 19 100/68 96 06/27/21 03:28 67 15 96 06/27/21 03:08 36.7 C 67 20 135/86 96
[2021-06-27] MEDS: ALBUT/IPRATROP 3MG/0.5MG NEB 3 ML VIAL NEB PRN (17:31)
[2021-06-27] MEDS: TAMSULOSIN HCL 0.4 MG CAP PO SCH (20:05)
--- NOTE | 2021-06-27 23:52 | Hospitalist Progress Note ---
Date of Service June 27, 2021 Assessment & Plan (1) Decompensated heart failure: Plan: Right-sided heart failure Present on admission with worsening shortness of breath associated with weight gain CXR showed Marked cardiomegaly and cardiac pacemaker with no radiographic evidence of congestive failure. CT chest showed Cardiomegaly with mediastinal lipomatosis and lipomatous hypertrophy of the intra-atrial septum redemonstrated. Received IV Lasix 60mg on admission Nephrology and cardiology on board to help with diuretic management Lasix increased to 100 mg twice daily Continue spironolactone 25 mg twice daily Continue fluid restriction with 1.5L Continue monitor I/O Monitor BMP while on diuretic Chronic A. fib Sick sinus syndrome Single-chamber pacemaker i Continue metoprolol 50 mg daily Continue Coumadin, INR 3.9 today IV heparin drip was discontinued Will hold Coumadin today Hypokalemia Potassium 3.8 today Continue monitor BMP while on IV Lasix H/O CAD S/P CABG Continue statin,aspirin, Isosorbide and Lopressor Hyperlipidemia On Rosuvastatin Obstructive sleep apnea CPAP at bedtime CKD III Creatinine at baseline Monitor renal function Avoid Nephrotoxic agents as able Morbid obesity BMI:65.8 Counseling about weight loss Depression Continue home medications HTN Continue Lopressor and Imdur Monitor BP DVT Px: on Coumadin with INR 2.8 Disposition Will discharge once medically stable CODE STATUS full code Admission and Anticipated Discharge Date Admission Date: June 24, 2021 Subjective Patient was seen and examined for follow-up of shortness of breath due to volume overload Lying in bed no acute distress. He said that he has been diuresing well Denies any chest pain, palpitation, dizziness, shortness of breath. Review of Systems Review of Systems: All systems reviewed & are unremarkable except as noted in Subjective Physical Exam Physical Exam: General- No acute distress Head- atraumatic Eyes- PERRL, EOMI, ENT- oropharynx clear Neck- supple, no JVD Lungs- clear to auscultation Heart- irregular rhythm; no murmur Abdomen- normal bowel sounds, soft, nontender Extremities- no calf tenderness, +edema Neuro- alert, oriented x 3; PERRL, EOMI; no facial palsy; no dysarthria Skin- warm & dry Results & Data Results & Data ([facility]) Vital Signs (Past 12 Hours) Vital Signs Temp Pulse Pulse Pulse Resp BP BP 06/27/21 23:00 74 06/27/21 22:27 36.5 C 75 18 128/76 06/27/21 19:31 36.5 C 70 18 118/71 06/27/21 17:32 76 15 06/27/21 16:02 36.9 C 73 22 119/73 Pulse Ox 06/27/21 23:00 06/27/21 22:27 92 06/27/21 19:31 94 06/27/21 17:32 95 06/27/21 16:02 92
[2021-06-28] MEDS: QUEtiapine FUMARATE 200 MG TAB PO SCH ×2 (00:07→23:05)
[2021-06-28 07:32] LABS: Prothrombin Time 28.2 Seconds (9.0-12.0)
[2021-06-28 07:47] LABS: BUN Creatinine Ratio 22.1 (10-20); Calcium 9.2 mg/dl (8.5-10.1); Est GFR (African American) 33.5 ml/min; Est GFR (Non-African American) 28.9 ml/min; Potassium 3.6 mmol/L (3.5-5.1)
[2021-06-28] MEDS: ESCITALOPRAM OXALATE 10 MG TAB PO SCH (08:42)
[2021-06-28] MEDS: NICOTINE 14 MG/24 HR PATCH TD SCH (08:42)
[2021-06-28] MEDS: ARIPiprazole 5 MG TAB PO SCH (08:42)
[2021-06-28] MEDS: TOPIRAMATE 25 MG TAB PO SCH ×2 (08:42→20:01)
[2021-06-28] MEDS: SPIRONOLACTONE 25 MG TAB PO SCH ×2 (08:42→20:02)
[2021-06-28] MEDS: METOPROLOL SUCC 50MG EXT REL TAB PO SCH (08:42)
[2021-06-28] MEDS: POTASSIUM CHLORIDE CRTAB 20 MEQ TABCR PO SCH ×2 (08:42→23:05)
[2021-06-28] MEDS: SUCRALFATE 1 GM TAB PO SCH (08:42)
[2021-06-28] MEDS: ISOSORBIDE MONO EXTENDED REL 30 MG TABCR PO SCH (08:43)
[2021-06-28] MEDS: lamoTRIgine 100 MG TAB PO SCH ×2 (08:43→20:03)
[2021-06-28] MEDS: GABAPENTIN 600 MG TAB PO SCH ×2 (08:43→20:03)
[2021-06-28] MEDS: ROSUVASTATIN CALCIUM 20 MG TAB PO SCH (08:43)
[2021-06-28] MEDS: FLUTICASONE/VILANTEROL 200/25MCG 14 PUFFS/INHALER INH SCH (08:43)
[2021-06-28] MEDS: FUROSEMIDE 40 MG/4 ML VIAL IV SCH ×2 (08:56→20:04)
[2021-06-28] MEDS: FUROSEMIDE INJ 20 MG/2 ML VIAL IV SCH ×2 (08:56→20:03)
[2021-06-28] MEDS: ALBUT/IPRATROP 3MG/0.5MG NEB 3 ML VIAL NEB PRN (09:18)
--- NOTE | 2021-06-28 15:25 | Cardiology Progress Note ---
Date of Service June 28, 2021 Assessment & Plan (1) Nonadherence to medication: (2) Dietary noncompliance: (3) Breath shortness: (4) Exertional dyspnea: (5) SSS (sick sinus syndrome): (6) Syncope: (7) Status post placement of cardiac pacemaker: (8) CKD (chronic kidney disease): (9) Morbid obesity: (10) Right-sided congestive heart failure: (11) GERD with apnea: (12) Lower extremity edema: (13) Chronic atrial fibrillation: (14) CAD (coronary artery disease): (15) HTN (hypertension): (16) OSCAR (obstructive sleep apnea): (17) Cor pulmonale: Plan: The patient presents with recurrent on him overload due to recurrent dietary noncompliance and likely medication noncompliance as well. Once again the pathophysiology and treatment were reviewed with the patient Once again, patient counseled great lengths on the need for adherence to medications as well as fluid and sodium intake restriction. Patient states that he understands but cannot comply Continue to diurese with previous regimen as it was successful on last admission Strict I/O's Fluid restriction Daily weights INR is now therapeutic infectious workup unremarkable appreciate nephrology input Admission and Anticipated Discharge Date Admission Date: June 24, 2021 Subjective Patient seen and examined, chart reviewed. States he is feeling relatively well today. Shortness of breath continues to improve as does edema. Telemetry reviewed: Ventricularly paced rhythm. Review of Systems Review of Systems: All systems reviewed & are unremarkable except as noted in HPI & below Physical Exam Physical Exam: General: Awake, alert and oriented x 3. No acute distress. HEENT: Normocephalic, atraumatic. Pupils equal, round and reactive to light and accommodation. Extraocular muscles are intact. Anicteric sclera. Moist mucous membranes. Neck: No JVD. No bruit. Cardiovascular: irregularly irregular, unable to appreciate murmur, rub or gallop. Pulmonary: Clear to auscultation bilaterally. No rales, rhonchi, or wheezing. Abdomen: Bowel sounds x 4, soft. No rebound, guarding or tenderness. No organomegaly. Extremities: No clubbing, cyanosis or edema. +2 pedal pulses bilaterally. Skin: Warm and dry. Results & Data ([facility]) Vital Signs (Past 12 Hours) Vital Signs Temp Pulse Resp BP BP Pulse Ox 06/28/21 11:40 36.4 C L 68 18 117/67 96 06/28/21 09:19 78 18 94 06/28/21 07:26 36.6 C 78 18 110/71 98 06/28/21 04:00 36.5 C 62 17 131/85 97 (1) Syncope Syncope type: unspecified Qualified Code(s): R55 - Syncope and collapse (2) CKD (chronic kidney disease) Chronic kidney disease stage: unspecified stage Qualified Code(s): N18.9 - Chronic kidney disease, unspecified
[2021-06-28] MEDS: WARFARIN SOD 5 MG TAB PO SCH (16:07)
[2021-06-28] MEDS: oxyCODONE HCL IR 5 MG TAB (IMMEDIATE RELEASE) PO PRN (17:52)
[2021-06-28] MEDS ORDERED: POTASSIUM CHLORIDE CRTAB 20 MEQ TABCR PO ONE (18:59)
--- NOTE | 2021-06-28 19:00 | Nephrology Progress Note ---
Date of Service June 28, 2021 Assessment & Plan (1) Acute renal insufficiency: Plan: stage 2 nonoliguric EDSON from baseline creatinine 1.1; chemistries mostly accep table but has slightly worse hyponatremia and mild hypokalemia. edson d/t decompensated HF, nonadherence to meds, diet. suspect hyponatremia from volume overload -cont aldactone current dose -cont lasix 100 mg IV bid -on K 40 mEq bid currently and dose just lowered > will give another 40mEq po dose x 1 -tightened FR from 2L > 1.8L -ensure he has daily bmp Admission and Anticipated Discharge Date Admission Date: June 24, 2021 Subjective seen on rounds today at about 1120; no new c/o; abd remains quite distended; no voiding c/o; no worsening breathing but still sob and w/ improving edema Review of Systems Review of Systems: All systems reviewed & are unremarkable except as noted in Subjective Physical Exam Constitutional: well developed, well nourished, + morbidly obese and cooperative Eyes: EOM intact bilaterally ENMT: Ears: no external ear abnormality Nose: no external nose abnormality Mouth: + dry oral mucous membranes Neck: no nuchal rigidity Respiratory: normal respiratory effort Auscultation: + diminished lung sounds Cardiovascular: Rate/Rhythm: + irregularly irregular Extremities: + edema ( trace) Gastrointestinal (Abdomen): Inspection/Auscultation: + abdomen distended and normal bowel sounds Percussion/Palpation: abdomen soft; abdomen nontender Musculoskeletal: Extremities: strength 5/5 throughout Skin: no rashes, warm and dry Neurologic: riley, fluent speech, no tremor Psychiatric: Orientation: oriented x 3 Results & Data ([facility]) Vital Signs (Past 12 Hours) Vital Signs Temp Pulse Resp BP Pulse Ox 06/28/21 16:06 36.5 C 71 18 129/69 98 06/28/21 11:40 36.4 C L 68 18 117/67 96 06/28/21 09:19 78 18 94 06/28/21 07:26 36.6 C 78 18 110/71 98 Laboratory Results 06/25/21 05:55 06/28/21 06:26
[2021-06-28] MEDS: TAMSULOSIN HCL 0.4 MG CAP PO SCH (20:01)
[2021-06-28] MEDS: LIDOCAINE 5% 1 PATCH TD SCH (21:16)
[2021-06-28] MEDS: ZOLPIDEM TARTRATE 5 MG TAB PO PRN (23:05)
--- NOTE | 2021-06-28 23:56 | Hospitalist Progress Note ---
Date of Service June 28, 2021 Assessment & Plan (1) Decompensated heart failure: Plan: Right-sided heart failure Present on admission with worsening shortness of breath associated with weight gain CXR showed Marked cardiomegaly and cardiac pacemaker with no radiographic evidence of congestive failure. CT chest showed Cardiomegaly with mediastinal lipomatosis and lipomatous hypertrophy of the intra-atrial septum redemonstrated. Received IV Lasix 60mg on admission Nephrology and cardiology on board to help with diuretic management Continue Lasix 100 mg IV twice daily Continue spironolactone 25 mg twice daily Continue fluid restriction with 1.5L Continue monitor I/O--currently -8 L Monitor BMP while on diuretic Chronic A. fib Sick sinus syndrome Single-chamber pacemaker i Continue metoprolol 50 mg daily Continue Coumadin, INR 3. today Coumadin restarted Continue monitor PT/INR Hypokalemia Potassium 3.6 today Continue K supplement Continue monitor BMP while on IV Lasix H/O CAD S/P CABG Continue statin,aspirin, Isosorbide and Lopressor Hyperlipidemia On Rosuvastatin Obstructive sleep apnea CPAP at bedtime CKD III Creatinine at baseline Monitor renal function Avoid Nephrotoxic agents as able Morbid obesity BMI:65.8 Counseling about weight loss Depression Continue home medications HTN Continue Lopressor and Imdur Monitor BP DVT Px: on Coumadin with INR 2.8 Disposition Will discharge once medically stable CODE STATUS full code Admission and Anticipated Discharge Date Admission Date: June 24, 2021 Subjective Patient was seen and examined for follow-up of shortness of breath due to volume overload Lying in bed with no acute distress He said that he has been having increased urine output due to diuresis He said that his breathing much better Denies any chest pain, palpitation, dizziness, and fever. Review of Systems Review of Systems: All systems reviewed & are unremarkable except as noted in Subjective Physical Exam Physical Exam: General- No acute distress Head- atraumatic Eyes- PERRL, EOMI, ENT- oropharynx clear Neck- supple, no JVD Lungs- clear to auscultation Heart- irregular rhythm; no murmur Abdomen- normal bowel sounds, soft, nontender Extremities- no calf tenderness, +edema Neuro- alert, oriented x 3; PERRL, EOMI; no facial palsy; no dysarthria Skin- warm & dry Results & Data Results & Data ([facility]) Vital Signs (Past 12 Hours) Vital Signs Temp Pulse Pulse Pulse Resp BP BP 06/28/21 23:29 36.7 C 74 20 138/84 06/28/21 23:08 80 06/28/21 19:10 36.8 C 75 17 113/70 06/28/21 16:06 36.5 C 71 18 129/69 Pulse Ox 06/28/21 23:29 94 06/28/21 23:08 06/28/21 19:10 94 06/28/21 16:06 98
[2021-06-29 07:22] LABS: INR 2.5 (0.9-1.1); Prothrombin Time 23.5 Seconds (9.0-12.0)
[2021-06-29 07:35] LABS: BUN Creatinine Ratio 20.2 (10-20); Calcium 8.8 mg/dl (8.5-10.1); Creatinine Clr Calc Pharmacy 57.8 ml/min; Est GFR (African American) 38.8 ml/min; Est GFR (Non-African American) 33.4 ml/min; Potassium 3.7 mmol/L (3.5-5.1)
[2021-06-29] MEDS: ARIPiprazole 5 MG TAB PO SCH (07:46)
[2021-06-29] MEDS: GABAPENTIN 600 MG TAB PO SCH ×2 (07:46→20:30)
[2021-06-29] MEDS: METOPROLOL SUCC 50MG EXT REL TAB PO SCH (07:47)
[2021-06-29] MEDS: SUCRALFATE 1 GM TAB PO SCH (07:47)
[2021-06-29] MEDS: ESCITALOPRAM OXALATE 10 MG TAB PO SCH (07:47)
[2021-06-29] MEDS: ISOSORBIDE MONO EXTENDED REL 30 MG TABCR PO SCH (07:48)
[2021-06-29] MEDS: TOPIRAMATE 25 MG TAB PO SCH ×2 (07:48→20:29)
[2021-06-29] MEDS: ROSUVASTATIN CALCIUM 20 MG TAB PO SCH (07:48)
[2021-06-29] MEDS: lamoTRIgine 100 MG TAB PO SCH ×2 (07:49→20:30)
[2021-06-29] MEDS: SPIRONOLACTONE 25 MG TAB PO SCH ×2 (07:49→20:29)
[2021-06-29] MEDS: FUROSEMIDE INJ 20 MG/2 ML VIAL IV SCH ×2 (07:50→20:29)
[2021-06-29] MEDS: FUROSEMIDE 40 MG/4 ML VIAL IV SCH ×2 (07:50→20:29)
[2021-06-29] MEDS: POTASSIUM CHLORIDE CRTAB 20 MEQ TABCR PO SCH ×4 (07:51→20:30)
[2021-06-29] MEDS: FLUTICASONE/VILANTEROL 200/25MCG 14 PUFFS/INHALER INH SCH (07:51)
[2021-06-29] MEDS: LIDOCAINE 5% 1 PATCH TD SCH (08:02)
[2021-06-29] MEDS: NICOTINE 14 MG/24 HR PATCH TD SCH (08:03)
--- NOTE | 2021-06-29 10:37 | Nephrology Progress Note ---
Date of Service June 29, 2021 Assessment & Plan (1) Acute renal insufficiency: Plan: stage 2 nonoliguric EDSON from baseline creatinine 1.1; chemistries mostly accep table but has mild and stable hyponatremia and ongoing mild hypokalemia. edson d/t decompensated HF, nonadherence to meds, diet. Presume hyponatremia from volume overload -cont aldactone current dose -cont lasix 100 mg IV bid -Increased dosing of K from 40 mEq bid currently to 40 mEq 4 times daily -Continue tightened FR from 2L > 1.8L Ordered less than 2 g daily sodium diet -ensure he has daily bmp Admission and Anticipated Discharge Date Admission Date: June 24, 2021 Subjective seen on rounds at 1120; feels dyspnea, edema, exertional capacity all improved since admission. still marked exertional dyspnea Review of Systems Review of Systems: All systems reviewed & are unremarkable except as noted in Subjective Physical Exam Constitutional: well developed, well nourished, + morbidly obese and cooperative dyspneic w/ going from lying to sitting in bed Eyes: EOM intact bilaterally ENMT: Ears: no external ear abnormality Nose: no external nose abnormality Mouth: + dry oral mucous membranes Neck: no nuchal rigidity Respiratory: normal respiratory effort Auscultation: + diminished lung sounds Cardiovascular: Rate/Rhythm: + irregularly irregular Extremities: + edema (trace) Gastrointestinal (Abdomen): Inspection/Auscultation: + abdomen distended and normal bowel sounds Percussion/Palpation: abdomen soft; abdomen nontender Musculoskeletal: Extremities: strength 5/5 throughout Skin: no rashes, warm and dry Psychiatric: Orientation: oriented x 3 Genitourinary: adrian w/ ample clear urine Results & Data ([facility]) Vital Signs (Past 12 Hours) Vital Signs Temp Pulse Pulse Pulse Resp BP BP 06/29/21 08:01 36.5 C 71 19 123/73 06/29/21 04:13 36.4 C L 64 20 119/74 06/29/21 03:38 64 22 06/29/21 00:00 06/28/21 23:29 36.7 C 74 20 138/84 06/28/21 23:08 80 Pulse Ox Pulse Ox 06/29/21 08:01 93 06/29/21 04:13 100 06/29/21 03:38 95 06/29/21 00:00 95 06/28/21 23:29 94 06/28/21 23:08 Laboratory Results 06/25/21 05:55 06/29/21 06:34
--- NOTE | 2021-06-29 11:04 | Cardiology Progress Note ---
Date of Service June 29, 2021 Assessment & Plan (1) Nonadherence to medication: (2) Dietary noncompliance: (3) Breath shortness: (4) Exertional dyspnea: (5) SSS (sick sinus syndrome): (6) Syncope: (7) Status post placement of cardiac pacemaker: (8) CKD (chronic kidney disease): (9) Morbid obesity: (10) Right-sided congestive heart failure: (11) GERD with apnea: (12) Lower extremity edema: (13) Chronic atrial fibrillation: (14) CAD (coronary artery disease): (15) HTN (hypertension): (16) OSCAR (obstructive sleep apnea): (17) Cor pulmonale: Plan: The patient presents with recurrent on him overload due to recurrent dietary noncompliance and likely medication noncompliance as well. Once again the pathophysiology and treatment were reviewed with the patient Once again, patient counseled great lengths on the need for adherence to medications as well as fluid and sodium intake restriction. Patient states that he understands but cannot comply Continue to diurese with previous regimen as it was successful on last admission Strict I/O's Fluid restriction Daily weights INR is therapeutic Approximately 10 L negative since admission, will continue with diuresis. appreciate nephrology input Admission and Anticipated Discharge Date Admission Date: June 24, 2021 Subjective Patient seen and examined, chart reviewed. States his breathing continues to improve with brisk diuresis. Denies chest pain, palpitations or lightheadedness. Telemetry reviewed: Ventricularly paced rhythm. Review of Systems Review of Systems: All systems reviewed & are unremarkable except as noted in HPI & below Physical Exam Physical Exam: General: Awake, alert and oriented x 3. No acute distress. HEENT: Normocephalic, atraumatic. Pupils equal, round and reactive to light and accommodation. Extraocular muscles are intact. Anicteric sclera. Moist mucous membranes. Neck: No JVD. No bruit. Cardiovascular: irregularly irregular, unable to appreciate murmur, rub or gallop. Pulmonary: Clear to auscultation bilaterally. No rales, rhonchi, or wheezing. Abdomen: Bowel sounds x 4, soft. No rebound, guarding or tenderness. No organomegaly. Extremities: No clubbing, cyanosis or edema. +2 pedal pulses bilaterally. Skin: Warm and dry. Results & Data ([facility]) Vital Signs (Past 12 Hours) Vital Signs Temp Pulse Pulse Pulse Resp BP BP 06/29/21 08:01 36.5 C 71 19 123/73 06/29/21 08:00 62 06/29/21 04:13 36.4 C L 64 20 119/74 06/29/21 03:38 64 22 06/29/21 00:00 06/28/21 23:29 36.7 C 74 20 138/84 06/28/21 23:08 80 Pulse Ox Pulse Ox 06/29/21 08:01 93 06/29/21 08:00 06/29/21 04:13 100 06/29/21 03:38 95 06/29/21 00:00 95 06/28/21 23:29 94 06/28/21 23:08 (1) Syncope Syncope type: unspecified Qualified Code(s): R55 - Syncope and collapse (2) CKD (chronic kidney disease) Chronic kidney disease stage: unspecified stage Qualified Code(s): N18.9 - Chronic kidney disease, unspecified
[2021-06-29] MEDS: oxyCODONE HCL IR 5 MG TAB (IMMEDIATE RELEASE) PO PRN (12:17)
[2021-06-29] MEDS: WARFARIN SOD 5 MG TAB PO SCH (16:07)
[2021-06-29] MEDS: TAMSULOSIN HCL 0.4 MG CAP PO SCH (20:29)
--- NOTE | 2021-06-29 22:14 | Hospitalist Progress Note ---
Date of Service June 29, 2021 Assessment & Plan (1) Decompensated heart failure: Plan: Right-sided heart failure Present on admission with worsening shortness of breath associated with weight gain CXR showed Marked cardiomegaly and cardiac pacemaker with no radiographic evidence of congestive failure. CT chest showed Cardiomegaly with mediastinal lipomatosis and lipomatous hypertrophy of the intra-atrial septum redemonstrated. Received IV Lasix 60mg on admission Nephrology and cardiology on board to help with diuretic management Continue Lasix 100 mg IV twice daily Continue spironolactone 25 mg twice daily Continue fluid restriction with 1.5L Continue monitor I/O--currently -8 L Monitor BMP while on diuretic Chronic A. fib Sick sinus syndrome Single-chamber pacemaker i Continue metoprolol 50 mg daily Continue Coumadin, INR 3. today Coumadin restarted Continue monitor PT/INR Hypokalemia Potassium 3.7 today Continue K supplement Continue monitor BMP while on IV Lasix H/O CAD S/P CABG Continue statin,aspirin, Isosorbide and Lopressor Hyperlipidemia On Rosuvastatin Obstructive sleep apnea CPAP at bedtime CKD III Creatinine at baseline Monitor renal function Avoid Nephrotoxic agents as able Morbid obesity BMI:65.8 Counseling about weight loss Depression Continue home medications HTN Continue Lopressor and Imdur Monitor BP DVT Px: on Coumadin with INR 2.8 Disposition Will discharge once medically stable CODE STATUS full code Admission and Anticipated Discharge Date Admission Date: June 24, 2021 Subjective Patient was seen and examined for follow-up of shortness of breath due to volume overload Lying in bed with no acute distress He said that his breathing much better He has been diuresing very well Denies any chest pain, palpitation, dizziness, and fever. Review of Systems Review of Systems: All systems reviewed & are unremarkable except as noted in Subjective Physical Exam Physical Exam: General- No acute distress Head- atraumatic Eyes- PERRL, EOMI, ENT- oropharynx clear Neck- supple, no JVD Lungs- clear to auscultation Heart- irregular rhythm; no murmur Abdomen- normal bowel sounds, soft, nontender Extremities- no calf tenderness, +edema Neuro- alert, oriented x 3; PERRL, EOMI; no facial palsy; no dysarthria Skin- warm & dry Results & Data Results & Data ([facility]) Vital Signs (Past 12 Hours) Vital Signs Temp Pulse Resp BP BP Pulse Ox 06/29/21 19:07 36.9 C 71 18 145/84 H 95 06/29/21 16:00 36.6 C 70 18 129/69 97 06/29/21 11:51 36.3 C L 68 20 104/63 94
[2021-06-29] MEDS: QUEtiapine FUMARATE 200 MG TAB PO SCH (23:08)
[2021-06-29] MEDS: ZOLPIDEM TARTRATE 5 MG TAB PO PRN (23:08)
[2021-06-30 07:35] LABS: BUN Creatinine Ratio 18.9 (10-20); Creatinine Clr Calc Pharmacy 57.4 ml/min; Est GFR (African American) 38.3 ml/min; Est GFR (Non-African American) 33.1 ml/min
[2021-06-30] MEDS: ROSUVASTATIN CALCIUM 20 MG TAB PO SCH (07:42)
[2021-06-30] MEDS: ARIPiprazole 5 MG TAB PO SCH (07:42)
[2021-06-30] MEDS: ISOSORBIDE MONO EXTENDED REL 30 MG TABCR PO SCH (07:42)
[2021-06-30] MEDS: ESCITALOPRAM OXALATE 10 MG TAB PO SCH (07:43)
[2021-06-30] MEDS: SUCRALFATE 1 GM TAB PO SCH (07:43)
[2021-06-30] MEDS: POTASSIUM CHLORIDE CRTAB 20 MEQ TABCR PO SCH ×4 (07:44→20:12)
[2021-06-30] MEDS: lamoTRIgine 100 MG TAB PO SCH ×2 (07:44→20:13)
[2021-06-30] MEDS: METOPROLOL SUCC 50MG EXT REL TAB PO SCH (07:45)
[2021-06-30] MEDS: TOPIRAMATE 25 MG TAB PO SCH ×2 (07:45→20:13)
[2021-06-30] MEDS: FLUTICASONE/VILANTEROL 200/25MCG 14 PUFFS/INHALER INH SCH (07:46)
[2021-06-30] MEDS: SPIRONOLACTONE 25 MG TAB PO SCH ×2 (07:46→20:13)
[2021-06-30] MEDS: FUROSEMIDE 40 MG/4 ML VIAL IV SCH ×2 (07:46→20:12)
[2021-06-30] MEDS: NICOTINE 14 MG/24 HR PATCH TD SCH (07:47)
[2021-06-30] MEDS: GABAPENTIN 600 MG TAB PO SCH ×2 (07:47→20:12)
[2021-06-30] MEDS: LIDOCAINE 5% 1 PATCH TD SCH (07:47)
[2021-06-30] MEDS: FUROSEMIDE INJ 20 MG/2 ML VIAL IV SCH ×2 (07:47→20:12)
[2021-06-30 07:54] LABS: INR 2.2 (0.9-1.1); Prothrombin Time 21.3 Seconds (9.0-12.0)
--- NOTE | 2021-06-30 11:11 | Cardiology Progress Note ---
Date of Service June 30, 2021 Assessment & Plan (1) Nonadherence to medication: (2) Dietary noncompliance: (3) Breath shortness: (4) Exertional dyspnea: (5) SSS (sick sinus syndrome): (6) Syncope: (7) Status post placement of cardiac pacemaker: (8) CKD (chronic kidney disease): (9) Morbid obesity: (10) Right-sided congestive heart failure: (11) GERD with apnea: (12) Lower extremity edema: (13) Chronic atrial fibrillation: (14) CAD (coronary artery disease): (15) HTN (hypertension): (16) OSCAR (obstructive sleep apnea): (17) Cor pulmonale: Plan: The patient presents with recurrent on him overload due to recurrent dietary noncompliance and likely medication noncompliance as well. Once again the pathophysiology and treatment were reviewed with the patient Once again, patient counseled great lengths on the need for adherence to medications as well as fluid and sodium intake restriction. Patient states that he understands but cannot comply Continue to diurese with previous regimen as it was successful on last admission Strict I/O's Fluid restriction Daily weights INR is therapeutic Approximately 13 L negative since admission, will continue with diuresis. appreciate nephrology input Admission and Anticipated Discharge Date Admission Date: June 24, 2021 Subjective Patient seen and examined, chart reviewed. States he is feeling well today. Continues to diurese. Denies chest pain, shortness of breath, palpitations, lightheadedness, or dizziness. Telemetry reviewed: Ventricularly paced rhythm. Review of Systems Review of Systems: All systems reviewed & are unremarkable except as noted in HPI & below Physical Exam Physical Exam: General: Awake, alert and oriented x 3. No acute distress. HEENT: Normocephalic, atraumatic. Pupils equal, round and reactive to light and accommodation. Extraocular muscles are intact. Anicteric sclera. Moist mucous membranes. Neck: No JVD. No bruit. Cardiovascular: irregularly irregular, unable to appreciate murmur, rub or gallop. Pulmonary: Clear to auscultation bilaterally. No rales, rhonchi, or wheezing. Abdomen: Bowel sounds x 4, soft. No rebound, guarding or tenderness. No organomegaly. Extremities: No clubbing, cyanosis or edema. +2 pedal pulses bilaterally. Skin: Warm and dry. Results & Data ([facility]) Vital Signs (Past 12 Hours) Vital Signs Temp Pulse Pulse Resp BP Pulse Ox Pulse Ox 06/30/21 11:01 36.6 C 76 19 139/81 94 06/30/21 07:00 36.5 C 69 17 129/84 95 06/30/21 03:31 36.5 C 62 17 142/67 H 96 06/30/21 00:27 65 22 94 06/30/21 00:00 99 06/29/21 23:23 37.0 C 67 16 126/85 94 (1) Syncope Syncope type: unspecified Qualified Code(s): R55 - Syncope and collapse (2) CKD (chronic kidney disease) Chronic kidney disease stage: unspecified stage Qualified Code(s): N18.9 - Chronic kidney disease, unspecified
--- NOTE | 2021-06-30 11:43 | Hospitalist Progress Note ---
Date of Service June 30, 2021 Assessment & Plan (1) Decompensated heart failure: Plan: Right-sided heart failure Present on admission with worsening shortness of breath associated with weight gain CXR showed Marked cardiomegaly and cardiac pacemaker with no radiographic evidence of congestive failure. CT chest showed Cardiomegaly with mediastinal lipomatosis and lipomatous hypertrophy of the intra-atrial septum redemonstrated. Nephrology and cardiology on board to help with diuretic management Continue Lasix 100 mg IV twice daily Continue spironolactone 25 mg twice daily Continue fluid restriction with 1.5L Counselled patient on need for medication adherence and adherence to fluid and salt management of heart failure Chronic A. fib Sick sinus syndrome Single-chamber pacemaker i Continue metoprolol 50 mg daily Continue Coumadin, INR 2.2 today Continue warfarin Continue monitor PT/INR Hypokalemia Resolved Potassium 4 today Continue K supplement while on diuretics and monitor H/O CAD S/P CABG Continue statin,aspirin, Isosorbide and Lopressor Hyperlipidemia On Rosuvastatin Obstructive sleep apnea CPAP at bedtime CKD III Monitor renal function Avoid Nephrotoxic agents as able Morbid obesity BMI:65.8 Life style modification counselling provided Depression Continue home medications HTN Continue Lopressor and Imdur Monitor BP DVT Px: on Coumadin with INR 2.2 Disposition Will discharge once medically stable CODE STATUS full code Admission and Anticipated Discharge Date Admission Date: June 24, 2021 Subjective 60-year-old man with history of chronic right-sided heart failure, cor pulmonale, OSCAR on BiPAP, SSS status post pacemaker on Coumadin, CAD status post CABG, hypertension, hyperlipidemia, COPD, CKD, chronic back pain, mood disorder presents with weight gain, abdominal distention, leg swelling, dyspnea on exertion. Being managed for heart failure exacerbation. Patient seen and examined this morning. Reports some improvement in his symptoms. Still has exertional dyspnea, occasional cough. Denies any chest pain, palpitation Denies any nausea, vomiting abdominal pain, diarrhea and patient Denies any fevers or chills Physical Exam Constitutional: + well hydrated and + obese; no acute distress Eyes: PERRL, conjunctivae normal, anicteric sclerae ENMT: external ear and nose normal, oropharynx normal Respiratory: Not in respiratory distress, No crackles or wheeze Cardiovascular: Rate/Rhythm: + irregularly irregular S1-S2 Gastrointestinal (Abdomen): normal bowel sounds, soft, nontender, no hepatosplenomegaly Musculoskeletal: Bilateral pedal edema Neurologic: PERRL, EOMI, accommodation nl, no face palsy, no dysarthria Psychiatric: A+Ox3, euthymic affect Results & Data Results & Data ([facility]) Vital Signs (Past 12 Hours) Vital Signs Temp Pulse Pulse Resp BP Pulse Ox Pulse Ox 06/30/21 11:01 36.6 C 76 19 139/81 94 06/30/21 11:00 64 06/30/21 07:00 36.5 C 69 17 129/84 95 06/30/21 03:31 36.5 C 62 17 142/67 H 96 06/30/21 00:27 65 22 94 06/30/21 00:00 99 Laboratory Results Abnormal lab results 06/30/21 06/30/21 Range/Units 06:34 06:34 PT 21.3 H (9.0-12.0) Seconds INR 2.2 H (0.9-1.1) Sodium 132 L (136-145) mmol/L Chloride 97 L (98-107) mmol/L BUN 40 H (7-18) mg/dl Creatinine 2.12 H (0.6-1.4) mg/dl
[2021-06-30] MEDS: oxyCODONE HCL IR 5 MG TAB (IMMEDIATE RELEASE) PO PRN ×2 (13:51→21:29)
[2021-06-30] MEDS: ALBUT/IPRATROP 3MG/0.5MG NEB 3 ML VIAL NEB PRN (15:32)
[2021-06-30] MEDS: WARFARIN SOD 5 MG TAB PO SCH (17:11)
--- NOTE | 2021-06-30 20:04 | Nephrology Progress Note ---
Date of Service June 30, 2021 Assessment & Plan (1) Acute renal insufficiency: Plan: stage 2 nonoliguric EDSON from baseline creatinine 1.1; chemistries mostly acceptable but has mild and stable hyponatremia and improvemetn today in mild hypokalemia. edson d/t decompensated HF, nonadherence to meds, diet. Presume hyponatremia from volume overload -cont aldactone current dose -cont lasix 100 mg IV bid -continue Increased dosing of K 40 mEq 4 times daily -Continue tightened FR from 2L > 1.8L Ordered less than 2 g daily sodium diet -ensure he has daily bmp Admission and Anticipated Discharge Date Admission Date: June 24, 2021 Subjective ongoing exertional dyspnea and edema and generalized weakness, not much changed from yesterday but better than at admission. pt seen and evaluated 1010 this am. Review of Systems Review of Systems: All systems reviewed & are unremarkable except as noted in Subjective Physical Exam Constitutional: well developed, well nourished, + morbidly obese and cooperative Eyes: EOM intact bilaterally ENMT: Ears: no external ear abnormality Nose: no external nose abnormality Mouth: + dry oral mucous membranes Neck: no nuchal rigidity Respiratory: normal respiratory effort Auscultation: + diminished lung sounds (tubular) and + abnormal I/E ratio Cardiovascular: Rate/Rhythm: + irregularly irregular Extremities: + edema (2+) Gastrointestinal (Abdomen): Inspection/Auscultation: + abdomen distended and normal bowel sounds Percussion/Palpation: abdomen soft; abdomen nontender Musculoskeletal: Extremities: strength 5/5 throughout Skin: no rashes, warm and dry Psychiatric: Orientation: oriented x 3 Results & Data ([facility]) Vital Signs (Past 12 Hours) Vital Signs Temp Pulse Pulse Resp BP Pulse Ox 06/30/21 19:00 36.3 C L 78 20 147/82 H 97 06/30/21 15:52 36.5 C 91 H 18 160/92 H 95 06/30/21 15:32 77 18 97 06/30/21 15:24 64 06/30/21 11:01 36.6 C 76 19 139/81 94 06/30/21 11:00 64
[2021-06-30] MEDS: TAMSULOSIN HCL 0.4 MG CAP PO SCH (20:13)
[2021-06-30] MEDS: QUEtiapine FUMARATE 200 MG TAB PO SCH (23:09)
[2021-06-30] MEDS: ZOLPIDEM TARTRATE 5 MG TAB PO PRN (23:09)
[2021-07-01 08:38] LABS: Hematocrit (blood only) 37.5 % (42-52); Hemoglobin 11.9 g/dL (14.0-18.0); Mean Corpuscular Hgb Conc 31.7 g/dL (32-36); Mean Platelet Volume 10.8 fL (7.4-10.4); Platelet Count 257 K/uL (130-400); RDW Standard Deviation 52.8 fL (36.4-46.3); Red Blood Count 4.41 M/uL (4.7-6.1); White Blood Count 11.85 K/uL (4.8-10.8)
[2021-07-01] MEDS: NICOTINE 14 MG/24 HR PATCH TD SCH (08:40)
[2021-07-01] MEDS: lamoTRIgine 100 MG TAB PO SCH ×2 (08:45→20:13)
[2021-07-01] MEDS: POTASSIUM CHLORIDE CRTAB 20 MEQ TABCR PO SCH ×4 (08:45→20:14)
[2021-07-01] MEDS: FUROSEMIDE INJ 20 MG/2 ML VIAL IV SCH ×2 (08:46→20:06)
[2021-07-01] MEDS: ESCITALOPRAM OXALATE 10 MG TAB PO SCH (08:46)
[2021-07-01] MEDS: GABAPENTIN 600 MG TAB PO SCH ×2 (08:46→20:13)
[2021-07-01] MEDS: ISOSORBIDE MONO EXTENDED REL 30 MG TABCR PO SCH (08:47)
[2021-07-01] MEDS: ARIPiprazole 5 MG TAB PO SCH (08:47)
[2021-07-01] MEDS: METOPROLOL SUCC 50MG EXT REL TAB PO SCH (08:47)
[2021-07-01] MEDS: FUROSEMIDE 40 MG/4 ML VIAL IV SCH ×2 (08:47→20:06)
[2021-07-01] MEDS: SUCRALFATE 1 GM TAB PO SCH (08:48)
[2021-07-01] MEDS: TOPIRAMATE 25 MG TAB PO SCH ×2 (08:48→20:17)
[2021-07-01] MEDS: FLUTICASONE/VILANTEROL 200/25MCG 14 PUFFS/INHALER INH SCH (08:48)
[2021-07-01] MEDS: SPIRONOLACTONE 25 MG TAB PO SCH ×2 (08:48→20:16)
[2021-07-01] MEDS: ROSUVASTATIN CALCIUM 20 MG TAB PO SCH (08:48)
[2021-07-01 08:49] LABS: INR 2.1 (0.9-1.1); Prothrombin Time 19.9 Seconds (9.0-12.0)
[2021-07-01] MEDS: LIDOCAINE 5% 1 PATCH TD SCH (08:50)
--- NOTE | 2021-07-01 09:03 | Nephrology Progress Note ---
Date of Service July 01, 2021 Assessment & Plan (1) Acute renal insufficiency: Plan: stage 2 nonoliguric EDSON from baseline creatinine 1.1; chemistries mostly accep table but yesterday had mild and stable hyponatremia and improvement in mild hypokalemia. edson d/t decompensated HF, nonadherence to meds, diet. Presume hyponatremia from volume overload continue current diuresis plan -cont aldactone current dose -cont lasix 100 mg IV bid -continue Increased dosing of K 40 mEq 4 times daily -Continue tightened FR from 2L > 1.8L Ordered less than 2 g daily sodium diet >>>NEEDS DAILY STANDING WEIGHT though we have by I/O diuresed 15.9 L from admission through 07/01 am, his bedscale wts are essentially unchanged since day after admission; he walked 80 feet on 06/30; should be able to do standing wt though he will also take time to get up to scale no doubt -ensure he has daily bmp Admission and Anticipated Discharge Date Admission Date: June 24, 2021 Subjective no interval events. doing PT. still very sob w/ minimal activity. Review of Systems Review of Systems: All systems reviewed & are unremarkable except as noted in Subjective Physical Exam Constitutional: well developed, well nourished, + morbidly obese and cooperative Eyes: EOM intact bilaterally ENMT: Ears: no external ear abnormality Nose: no external nose abnormality Mouth: + dry oral mucous membranes Neck: no nuchal rigidity Respiratory: normal respiratory effort Auscultation: + diminished lung sounds (tubular), + rhonchi and + abnormal I/E ratio Cardiovascular: Rate/Rhythm: + irregularly irregular Extremities: + edema (2+) Gastrointestinal (Abdomen): Inspection/Auscultation: + abdomen distended and normal bowel sounds Percussion/Palpation: abdomen soft; abdomen nontender Musculoskeletal: Extremities: strength 5/5 throughout Skin: no rashes, warm and dry Psychiatric: Orientation: oriented x 3 Results & Data ([facility]) Vital Signs (Past 12 Hours) Vital Signs Temp Pulse Pulse Resp BP Pulse Ox 07/01/21 07:00 36.3 C L 72 18 132/84 90 07/01/21 03:56 36.6 C 62 20 141/76 H 100 07/01/21 02:30 70 13 94 07/01/21 01:07 70 23 95 06/30/21 23:00 36.8 C 71 18 130/76 96 Laboratory Results 07/01/21 07:46 07/01/21 07:46
[2021-07-01 09:31] LABS: BUN Creatinine Ratio 19.7 (10-20); Calcium 9.1 mg/dl (8.5-10.1); Creatinine Clr Calc Pharmacy 65.4 ml/min; Est GFR (African American) 44.6 ml/min; Est GFR (Non-African American) 38.5 ml/min; Magnesium 2.7 mg/dl (1.8-2.4); Potassium 4.2 mmol/L (3.5-5.1)
--- NOTE | 2021-07-01 11:17 | Cardiology Progress Note ---
Date of Service July 01, 2021 Assessment & Plan (1) Nonadherence to medication: (2) Dietary noncompliance: (3) Breath shortness: (4) Exertional dyspnea: (5) SSS (sick sinus syndrome): (6) Syncope: (7) Status post placement of cardiac pacemaker: (8) CKD (chronic kidney disease): (9) Morbid obesity: (10) Right-sided congestive heart failure: (11) GERD with apnea: (12) Lower extremity edema: (13) Chronic atrial fibrillation: (14) CAD (coronary artery disease): (15) HTN (hypertension): (16) OSCAR (obstructive sleep apnea): (17) Cor pulmonale: Plan: The patient needs additional diuresis. I would continue current medications. Admission and Anticipated Discharge Date Admission Date: June 24, 2021 Subjective No new complaints. Review of Systems Review of Systems: Review of Systems: See HPI for pertinent positives. All other 10 point review of systems are negative. Physical Exam Physical Exam: General: no acute distress and stated age Head: normocephalic, no masses, lesions, tenderness or abnormalities Eyes: conjunctiva are pink and non-injected, sclera clear Neck: supple, no adenopathy, no bruits, normal jugular venous pulse, no hepatojugular reflux Chest: normal shape and normal respiratory effort Lungs: clear to auscultation and percussion Cardiac Exam: - regular rate & rhythm, no murmurs gallops or rubs - normal S1, normal S2 Pulses: 2(+) throughout Abdomen: abdomen soft, non-tender, no abnormal masses and no hepatosplenomegaly Musculoskeletal: no gait disturbance, no joint inflammation, no deforming ar thritis Extremities: Bilateral lower extremity edema Neuro: grossly normal exam Results & Data ([facility]) Vital Signs (Past 12 Hours) Vital Signs Temp Pulse Pulse Resp BP Pulse Ox Pulse Ox 07/01/21 08:00 61 94 07/01/21 07:00 36.3 C L 72 18 132/84 90 07/01/21 03:56 36.6 C 62 20 141/76 H 100 07/01/21 02:30 70 13 94 07/01/21 01:07 70 23 95 Laboratory Results Laboratory Results - last 24 hr 07/01/21 07/01/21 07/01/21 07:46 07:46 07:46 WBC 11.85 H RBC 4.41 L Hgb 11.9 L Hct 37.5 L MCV 85.0 MCH 27.0 MCHC 31.7 L RDW Std Deviation 52.8 H RDW Coeff of Karlene 17.0 H Plt Count 257 MPV 10.8 H PT 19.9 H INR 2.1 H Sodium 135 L Potassium 4.2 Chloride 102 Carbon Dioxide 23 Anion Gap 10.0 BUN 37 H Creatinine 1.87 H Est Cr Clr Drug Dosing 65.4 Est GFR ( Amer) 44.6 Est GFR (Non-Af Amer) 38.5 BUN/Creatinine Ratio 19.7 Glucose 92 Calcium 9.1 Magnesium 2.7 H Medications Administered Current Inpatient Medications Albuterol (Albut/Ipratrop 3mg/0.5mg Neb 3 Ml Vial) 3 ml NEB QIDR PRN PRN Reason: sob Stop: 07/27/21 18:59 Last Admin: 06/30/21 15:32 Dose: 3 ml Documented by: Aripiprazole (Aripiprazole 5 Mg Tab) 5 mg PO QAM [facility]INE Stop: 07/25/21 08:59 Last Admin: 07/01/21 08:47 Dose: 5 mg Documented by: Escitalopram Oxalate (Escitalopram Oxalate 10 Mg Tab) 10 mg PO DAILY CHRISTINE Stop: 07/25/21 08:59 Last Admin: 07/01/21 08:46 Dose: 10 mg Documented by: Fluticasone/Vilanterol (Fluticasone/Vilanterol 200/25mcg 14 Puffs/Inhaler) 1 puffs INH DAILY [facility]RISTINE Stop: 07/25/21 08:59 Last Admin: 07/01/21 08:48 Dose: 1 puffs Documented by: Furosemide (Furosemide 40 Mg/4 Ml Vial) 80 mg IV Q12 [facility]INE Stop: 07/26/21 20:59 Last Admin: 07/01/21 08:47 Dose: 80 mg Documented by: Furosemide (Furosemide Inj 20 Mg/2 Ml Vial) 20 mg IV Q12 [facility]INE Stop: 07/26/21 20:59 Last Admin: 07/01/21 08:46 Dose: 20 mg Documented by: Gabapentin (Gabapentin 600 Mg Tab) 600 mg PO BID [facility]INE Stop: 07/25/21 00:59 Last Admin: 07/01/21 08:46 Dose: 600 mg Documented by: Promethazine HCl 12.5 mg/ (Sodium Chloride) 50.5 mls @ 202 mls/hr IV Q6H PRN PRN Reason: Nausea And Vomiting Stop: 07/25/21 00:15 Isosorbide Mononitrate (Isosorbide Mcculloch Extended Rel 30 Mg Tabcr) 30 mg PO QAM [facility] Stop: 07/25/21 08:59 Last Admin: 07/01/21 08:47 Dose: 30 mg Documented by: Lamotrigine (Lamotrigine 100 Mg Tab) 200 mg PO BID [facility] Stop: 07/25/21 08:59 Last Admin: 07/01/21 08:45 Dose: 200 mg Documented by: Lidocaine (Lidocaine 5% 1 Patch) [facility] [place] Stop: 07/28/21 20:19 Last Admin: 07/01/21 08:50 Dose: 1 patch Documented by: Metoprolol Succinate (Metoprolol Succ 50mg Ext Rel Tab) 50 mg PO DAILY [facility] Stop: 07/25/21 08:59 Last Admin: 07/01/21 08:47 Dose: 50 mg Documented by: Miscellaneous (Remove Nicoderm Patch) 1 ea N/A DAILY@0859 [facility] Stop: 07/27/21 08:58 Last Admin: 07/01/21 08:41 Dose: 1 ea Documented by: Miscellaneous (Remove Lidoderm Patch) 1 ea N/A DAILY@2100 [facility] Stop: 07/29/21 08:29 Last Admin: 06/30/21 19:57 Dose: 1 ea Documented by: Nicotine (Nicotine 14 Mg/24 Hr Patch) 14 mg TD QAM [facility] Stop: 07/26/21 14:59 Last Admin: 07/01/21 08:40 Dose: 14 mg Documented by: Nitroglycerin (Nitroglycerin Sl 0.4 Mg/Tab Tab) 0.4 mg SL UD PRN PRN Reason: Chest Pain Stop: 07/25/21 00:15 Oxycodone HCl (Oxycodone Hcl Ir 5 Mg Tab (Immediate Release)) 5 - 10 mg PO QID PRN PRN Reason: Pain Stop: 07/09/21 00:15 Last Admin: 06/30/21 21:29 Dose: 10 mg Documented by: Potassium Chloride (Potassium Chloride Crtab 20 Meq Tabcr) 40 meq PO QID [facility] Stop: 07/29/21 12:59 Last Admin: 07/01/21 08:45 Dose: 40 meq Documented by: Quetiapine Fumarate (Quetiapine Fumarate 200 Mg Tab) 200 mg PO HS [facility] Stop: 07/25/21 00:15 Last Admin: 06/30/21 23:09 Dose: 200 mg Documented by: Rosuvastatin Calcium (Rosuvastatin Calcium 20 Mg Tab) 40 mg PO DAILY [facility] Stop: 07/25/21 08:59 Last Admin: 07/01/21 08:48 Dose: 40 mg Documented by: Spironolactone (Spironolactone 25 Mg Tab) 25 mg PO BID [facility] Stop: 07/26/21 20:59 Last Admin: 07/01/21 08:48 Dose: 25 mg Documented by: Sucralfate (Sucralfate 1 Gm Tab) 1 gm PO DAILY [facility] Stop: 07/25/21 08:59 Last Admin: 07/01/21 08:48 Dose: 1 gm Documented by: Tamsulosin HCl (Tamsulosin Hcl 0.4 Mg Cap) 0.4 mg PO HS [facility] Stop: 07/25/21 20:59 Last Admin: 06/30/21 20:13 Dose: 0.4 mg Documented by: Topiramate (Topiramate 25 Mg Tab) 25 mg PO BID [facility] Stop: 07/25/21 08:59 Last Admin: 07/01/21 08:48 Dose: 25 mg Documented by: Warfarin Sodium (Warfarin Sod 5 Mg Tab) 5 mg PO DAILY@1600 [facility] Stop: 07/28/21 15:59 Last Admin: 06/30/21 17:11 Dose: 5 mg Documented by: Zolpidem Tartrate (Zolpidem Tartrate 5 Mg Tab) 5 mg PO HS PRN PRN Reason: Sleep Stop: 07/25/21 00:15 Last Admin: 06/30/21 23:09 Dose: 5 mg Documented by: (1) CKD (chronic kidney disease) Chronic kidney disease stage: unspecified stage Qualified Code(s): N18.9 - Chronic kidney disease, unspecified (2) Syncope Syncope type: unspecified Qualified Code(s): R55 - Syncope and collapse
--- NOTE | 2021-07-01 11:53 | Hospitalist Progress Note ---
Date of Service July 01, 2021 Assessment & Plan (1) Decompensated heart failure: Plan: Right-sided heart failure Present on admission with worsening shortness of breath associated with weight gain CXR showed Marked cardiomegaly and cardiac pacemaker with no radiographic evidence of congestive failure. CT chest showed Cardiomegaly with mediastinal lipomatosis and lipomatous hypertrophy of the intra-atrial septum redemonstrated. Nephrology and cardiology on board to help with diuretic management Continue Lasix 100 mg IV twice daily Continue spironolactone 25 mg twice daily Continue fluid restriction Chronic A. fib Sick sinus syndrome Single-chamber pacemaker i Continue metoprolol 50 mg daily Continue Coumadin, INR 2.1 today Continue warfarin Continue monitor PT/INR Hypokalemia Resolved Potassium 4.2 today Continue K supplement while on diuretics and monitor H/O CAD S/P CABG Continue statin,aspirin, Isosorbide and Lopressor Hyperlipidemia On Rosuvastatin Obstructive sleep apnea CPAP at bedtime CKD III Monitor renal function Avoid Nephrotoxic agents as able Morbid obesity BMI:65.8 Life style modification counselling provided Depression Continue home medications HTN Continue Lopressor and Imdur Monitor BP DVT Px: on Coumadin Disposition Will discharge once medically stable CODE STATUS full code Admission and Anticipated Discharge Date Admission Date: June 24, 2021 Subjective 60-year-old man with history of chronic right-sided heart failure, cor pulmonale, OSCAR on BiPAP, SSS status post pacemaker on Coumadin, CAD status post CABG, hypertension, hyperlipidemia, COPD, CKD, chronic back pain, mood disorder presents with weight gain, abdominal distention, leg swelling, dyspnea on exertion. Being managed for heart failure exacerbation. Patient seen and examined this morning. Reports some improvement in his symptoms. Still reports exertional dyspnea and cough. Denies any chest pain, palpitation Denies any nausea, vomiting abdominal pain, diarrhea and patient Denies any fevers or chills Physical Exam Constitutional: + well hydrated and + obese; no acute distress Eyes: PERRL, conjunctivae normal, anicteric sclerae ENMT: external ear and nose normal, oropharynx normal Cardiovascular: Rate/Rhythm: + irregularly irregular S1 S2 Gastrointestinal (Abdomen): normal bowel sounds, soft, nontender, no hepatosplenomegaly Musculoskeletal: Pedal edema Neurologic: PERRL, EOMI, accommodation nl, no face palsy, no dysarthria Psychiatric: A+Ox3, euthymic affect Results & Data Results & Data ([facility]) Vital Signs (Past 12 Hours) Vital Signs Temp Pulse Pulse Resp BP Pulse Ox Pulse Ox 07/01/21 08:00 61 94 07/01/21 07:00 36.3 C L 72 18 132/84 90 07/01/21 03:56 36.6 C 62 20 141/76 H 100 07/01/21 02:30 70 13 94 07/01/21 01:07 70 23 95 Laboratory Results Abnormal lab results 07/01/21 07/01/21 07/01/21 Range/Units 07:46 07:46 07:46 WBC 11.85 H (4.8-10.8) K/uL RBC 4.41 L (4.7-6.1) M/uL Hgb 11.9 L (14.0-18.0) g/dL Hct 37.5 L (42-52) % MCHC 31.7 L (32-36) g/dL RDW Std Deviation 52.8 H (36.4-46.3) fL RDW Coeff of Karlene 17.0 H (11.5-14.5) % MPV 10.8 H (7.4-10.4) fL PT 19.9 H (9.0-12.0) Seconds INR 2.1 H (0.9-1.1) Sodium 135 L (136-145) mmol/L BUN 37 H (7-18) mg/dl Creatinine 1.87 H (0.6-1.4) mg/dl Magnesium 2.7 H (1.8-2.4) mg/dl
[2021-07-01] MEDS: oxyCODONE HCL IR 5 MG TAB (IMMEDIATE RELEASE) PO PRN (12:27)
[2021-07-01] MEDS: WARFARIN SOD 5 MG TAB PO SCH (16:46)
[2021-07-01] MEDS: ALBUT/IPRATROP 3MG/0.5MG NEB 3 ML VIAL NEB PRN (19:41)
[2021-07-01] MEDS: TAMSULOSIN HCL 0.4 MG CAP PO SCH (20:16)
[2021-07-01] MEDS: ZOLPIDEM TARTRATE 5 MG TAB PO PRN (23:09)
[2021-07-01] MEDS: QUEtiapine FUMARATE 200 MG TAB PO SCH (23:09)
[2021-07-02 07:47] LABS: INR 2.2 (0.9-1.1)
[2021-07-02 08:28] LABS: BUN Creatinine Ratio 18.1 (10-20); Calcium 8.8 mg/dl (8.5-10.1); Creatinine Clr Calc Pharmacy 60.4 ml/min; Est GFR (African American) 41.1 ml/min; Est GFR (Non-African American) 35.5 ml/min; Magnesium 2.5 mg/dl (1.8-2.4); Potassium 4.1 mmol/L (3.5-5.1)
[2021-07-02 08:29] LABS: Phosphorus 2.4 mg/dl (2.5-4.9)
[2021-07-02] MEDS: SUCRALFATE 1 GM TAB PO SCH (08:33)
[2021-07-02] MEDS: ROSUVASTATIN CALCIUM 20 MG TAB PO SCH (08:33)
[2021-07-02] MEDS: TOPIRAMATE 25 MG TAB PO SCH ×2 (08:33→19:47)
[2021-07-02] MEDS: METOPROLOL SUCC 50MG EXT REL TAB PO SCH (08:33)
[2021-07-02] MEDS: ARIPiprazole 5 MG TAB PO SCH (08:33)
[2021-07-02] MEDS: ISOSORBIDE MONO EXTENDED REL 30 MG TABCR PO SCH (08:33)
[2021-07-02] MEDS: ESCITALOPRAM OXALATE 10 MG TAB PO SCH (08:33)
[2021-07-02] MEDS: SPIRONOLACTONE 25 MG TAB PO SCH ×2 (08:33→19:46)
[2021-07-02] MEDS: FUROSEMIDE INJ 20 MG/2 ML VIAL IV SCH ×2 (08:34→19:53)
[2021-07-02] MEDS: LIDOCAINE 5% 1 PATCH TD SCH (08:34)
[2021-07-02] MEDS: NICOTINE 14 MG/24 HR PATCH TD SCH (08:34)
[2021-07-02] MEDS: POTASSIUM CHLORIDE CRTAB 20 MEQ TABCR PO SCH ×4 (08:34→19:44)
[2021-07-02] MEDS: FLUTICASONE/VILANTEROL 200/25MCG 14 PUFFS/INHALER INH SCH (08:35)
[2021-07-02] MEDS: FUROSEMIDE 40 MG/4 ML VIAL IV SCH ×2 (08:35→19:53)
[2021-07-02] MEDS: lamoTRIgine 100 MG TAB PO SCH ×2 (08:35→19:44)
[2021-07-02] MEDS: GABAPENTIN 600 MG TAB PO SCH ×2 (08:35→19:43)
[2021-07-02] MEDS: oxyCODONE HCL IR 5 MG TAB (IMMEDIATE RELEASE) PO PRN (09:12)
--- NOTE | 2021-07-02 10:48 | Cardiology Progress Note ---
Date of Service July 02, 2021 Assessment & Plan (1) Nonadherence to medication: (2) Dietary noncompliance: (3) Breath shortness: (4) Exertional dyspnea: (5) SSS (sick sinus syndrome): (6) Syncope: (7) Status post placement of cardiac pacemaker: (8) CKD (chronic kidney disease): (9) Morbid obesity: (10) Right-sided congestive heart failure: (11) GERD with apnea: (12) Lower extremity edema: (13) Chronic atrial fibrillation: (14) CAD (coronary artery disease): (15) HTN (hypertension): (16) OSCAR (obstructive sleep apnea): (17) Cor pulmonale: Plan: The patient remains hypervolemic. Recommend continued IV diuresis as prescribed. Admission and Anticipated Discharge Date Admission Date: June 24, 2021 Supervising Physician Co-Signing Physician Notes I have seen and examined the patient. I have discussed the care with Mr. Boggs and reviewed the medical record. I agree with plans as outlined above. Subjective Patient seen and examined. Chart, medications, and telemetry reviewed. Patient continues to diurese, down 18,441 ml's overall this admission. Weights have not accurately been recorded. Feeling better though remains hypervolemic. No chest pain. No palpitations. Dyspnea occurs with minimal activity. + Orthopnea. No PND. Ongoing abdominal and to a lesser extent lower extremity peripheral edema. No dizziness or syncope. No fevers or chills. No melena or hematochezia. Continuous telemetry monitoring reveals atrial fibrillation with intermittent pacing Review of Systems Review of Systems: Review of Systems: See HPI for pertinent positives. All other 10 point review of systems are negative. Physical Exam Physical Exam: General: A&Ox3. NAD. Elevated BMI. HENT: Normocephalic. Atraumatic. Eyes: PER. Conjunctiva pink, sclera clear. Neck: No carotid bruits. No overt JVD. Heart: Irregularly irregular in the 60s. Distant heart sounds. No murmur appreciated. Lungs: Diminished. Decreased. Clear to auscultation. Abdomen: Obese. +BS. Soft. Nontender. No masses or organomegaly. Extremities: 1+ edema. No clubbing. No cyanosis. Limited neurological examination is without focal deficits. Results & Data ([facility]) Vital Signs (Past 12 Hours) Vital Signs Temp Pulse Pulse Resp BP BP Pulse Ox 07/02/21 07:51 36.6 C 69 21 126/75 98 07/02/21 07:00 67 07/02/21 04:04 36.8 C 77 19 116/78 100 07/01/21 23:23 36.5 C 80 18 130/85 97 Laboratory Results Laboratory Results - last 24 hr 07/02/21 07/02/21 06:41 06:41 PT 21.0 H INR 2.2 H Sodium 135 L Potassium 4.1 Chloride 102 Carbon Dioxide 24 Anion Gap 9.0 BUN 36 H Creatinine 2.00 H Est Cr Clr Drug Dosing 60.4 Est GFR ( Amer) 41.1 Est GFR (Non-Af Amer) 35.5 BUN/Creatinine Ratio 18.1 Glucose 91 Calcium 8.8 Phosphorus 2.4 L Magnesium 2.5 H (1) CKD (chronic kidney disease) Chronic kidney disease stage: unspecified stage Qualified Code(s): N18.9 - Chronic kidney disease, unspecified (2) Syncope Syncope type: unspecified Qualified Code(s): R55 - Syncope and collapse
[2021-07-02] MEDS: ALBUT/IPRATROP 3MG/0.5MG NEB 3 ML VIAL NEB PRN (10:53)
--- NOTE | 2021-07-02 10:58 | Nephrology Progress Note ---
Date of Service July 02, 2021 Assessment & Plan (1) Acute renal insufficiency: Plan: stage 2 nonoliguric EDSON from baseline creatinine 1.1; chemistries acceptable. edson d/t decompensated HF, nonadherence to meds, diet. ongoing volume overload continue current diuresis plan -cont aldactone current dose -cont lasix 100 mg IV bid -continue Increased dosing of K 40 mEq 4 times daily -Continue tightened FR from 2L > 1.8L Ordered less than 2 g daily sodium diet >continue daily standing wt -ensure he has daily bmp Admission and Anticipated Discharge Date Admission Date: June 24, 2021 Subjective sob a slight bit better as is N. Review of Systems Review of Systems: All systems reviewed & are unremarkable except as noted in Subjective Physical Exam Constitutional: well developed, well nourished, + morbidly obese and cooperative Eyes: EOM intact bilaterally ENMT: Ears: no external ear abnormality Nose: no external nose abnormality Mouth: + dry oral mucous membranes Neck: no nuchal rigidity Respiratory: normal respiratory effort Auscultation: + diminished lung sounds (tubular), + rhonchi and + abnormal I/E ratio Cardiovascular: Rate/Rhythm: + irregularly irregular Extremities: + edema (2+) Gastrointestinal (Abdomen): Inspection/Auscultation: + abdomen distended and normal bowel sounds Percussion/Palpation: abdomen soft; abdomen nontender Musculoskeletal: Extremities: strength 5/5 throughout Skin: no rashes, warm and dry Psychiatric: Orientation: oriented x 3 Results & Data ([facility]) Vital Signs (Past 12 Hours) Vital Signs Temp Pulse Pulse Resp BP BP Pulse Ox 07/02/21 10:53 18 95 07/02/21 07:51 36.6 C 69 21 126/75 98 07/02/21 07:00 67 07/02/21 04:04 36.8 C 77 19 116/78 100 07/01/21 23:23 36.5 C 80 18 130/85 97 Laboratory Results 07/01/21 07:46 07/02/21 06:41
--- NOTE | 2021-07-02 11:34 | Hospitalist Progress Note ---
Date of Service July 02, 2021 Assessment & Plan (1) Decompensated heart failure: Plan: Right-sided heart failure Present on admission with worsening shortness of breath associated with weight gain CXR showed Marked cardiomegaly and cardiac pacemaker with no radiographic evidence of congestive failure. CT chest showed Cardiomegaly with mediastinal lipomatosis and lipomatous hypertrophy of the intra-atrial septum redemonstrated. Nephrology and cardiology on board to help with diuretic management Continue Lasix 100 mg IV twice daily Continue spironolactone 25 mg twice daily Continue fluid restriction I provided counselling about adherence to fluid restriction and low salt diet at home Chronic A. fib Sick sinus syndrome Single-chamber pacemaker Continue metoprolol 50 mg daily Continue Coumadin, INR 2.2 today Continue warfarin Continue monitor PT/INR Hypokalemia Resolved Potassium 4.2 today Continue K supplement while on diuretics and monitor H/O CAD S/P CABG Continue statin,aspirin, Isosorbide and Lopressor Hyperlipidemia On Rosuvastatin Obstructive sleep apnea CPAP at bedtime CKD III Monitor renal function Avoid Nephrotoxic agents as able Morbid obesity BMI:65.8 Life style modification counselling provided Depression Continue home medications HTN Continue Lopressor and Imdur Monitor BP DVT Px: on Coumadin Disposition Will discharge once medically stable CODE STATUS full code Admission and Anticipated Discharge Date Admission Date: June 24, 2021 Subjective 60-year-old man with history of chronic right-sided heart failure, cor pulmonale, OSCAR on BiPAP, SSS status post pacemaker on Coumadin, CAD status post CABG, hypertension, hyperlipidemia, COPD, CKD, chronic back pain, mood disorder presents with weight gain, abdominal distention, leg swelling, dyspnea on exertion. Being managed for heart failure exacerbation. Patient seen and examined this morning. Reports exertional dyspnea improved +Cough Denies any chest pain, palpitation Denies any nausea, vomiting abdominal pain, diarrhea and patient Denies any fevers or chills Physical Exam Constitutional: + well hydrated and + obese; no acute distress Eyes: PERRL, conjunctivae normal, anicteric sclerae ENMT: external ear and nose normal, oropharynx normal Respiratory: Diminished breath sounds Cardiovascular: Rate/Rhythm: + irregularly irregular S1 S2 Gastrointestinal (Abdomen): normal bowel sounds, soft, nontender, no hepatosplenomegaly Musculoskeletal: b/l AMBREEN Neurologic: PERRL, EOMI, accommodation nl, no face palsy, no dysarthria Psychiatric: A+Ox3, euthymic affect Results & Data Results & Data ([facility]) Vital Signs (Past 12 Hours) Vital Signs Temp Pulse Pulse Resp BP Pulse Ox 07/02/21 10:53 18 95 07/02/21 07:51 36.6 C 69 21 126/75 98 07/02/21 07:00 67 07/02/21 04:04 36.8 C 77 19 116/78 100 Laboratory Results Abnormal lab results 07/02/21 07/02/21 Range/Units 06:41 06:41 PT 21.0 H (9.0-12.0) Seconds INR 2.2 H (0.9-1.1) Sodium 135 L (136-145) mmol/L BUN 36 H (7-18) mg/dl Creatinine 2.00 H (0.6-1.4) mg/dl Phosphorus 2.4 L (2.5-4.9) mg/dl Magnesium 2.5 H (1.8-2.4) mg/dl
[2021-07-02] MEDS: WARFARIN SOD 5 MG TAB PO SCH (16:57)
[2021-07-02] MEDS: TAMSULOSIN HCL 0.4 MG CAP PO SCH (19:46)
[2021-07-02] MEDS: ZOLPIDEM TARTRATE 5 MG TAB PO PRN (23:00)
[2021-07-02] MEDS: QUEtiapine FUMARATE 200 MG TAB PO SCH (23:00)
[2021-07-03] MEDS: oxyCODONE HCL IR 5 MG TAB (IMMEDIATE RELEASE) PO PRN ×2 (06:35→16:45)
[2021-07-03 06:49] LABS: INR 2.3 (0.9-1.1); Prothrombin Time 21.9 Seconds (9.0-12.0)
[2021-07-03 07:09] LABS: BUN Creatinine Ratio 17.4 (10-20); Calcium 9.5 mg/dl (8.5-10.1); Creatinine Clr Calc Pharmacy 58.7 ml/min; Est GFR (African American) 39.2 ml/min; Est GFR (Non-African American) 33.8 ml/min; Magnesium 2.7 mg/dl (1.8-2.4); Phosphorus 2.6 mg/dl (2.5-4.9); Potassium 4.6 mmol/L (3.5-5.1)
[2021-07-03] MEDS: LIDOCAINE 5% 1 PATCH TD SCH (07:47)
[2021-07-03] MEDS: NICOTINE 14 MG/24 HR PATCH TD SCH (07:47)
[2021-07-03] MEDS: FUROSEMIDE 40 MG/4 ML VIAL IV SCH ×2 (07:48→19:46)
[2021-07-03] MEDS: ESCITALOPRAM OXALATE 10 MG TAB PO SCH (07:48)
[2021-07-03] MEDS: FUROSEMIDE INJ 20 MG/2 ML VIAL IV SCH ×2 (07:48→19:46)
[2021-07-03] MEDS: SUCRALFATE 1 GM TAB PO SCH (07:48)
[2021-07-03] MEDS: METOPROLOL SUCC 50MG EXT REL TAB PO SCH (07:49)
[2021-07-03] MEDS: ROSUVASTATIN CALCIUM 20 MG TAB PO SCH (07:49)
[2021-07-03] MEDS: ISOSORBIDE MONO EXTENDED REL 30 MG TABCR PO SCH (07:49)
[2021-07-03] MEDS: SPIRONOLACTONE 25 MG TAB PO SCH ×2 (07:50→19:43)
[2021-07-03] MEDS: ARIPiprazole 5 MG TAB PO SCH (07:50)
[2021-07-03] MEDS: POTASSIUM CHLORIDE CRTAB 20 MEQ TABCR PO SCH ×3 (07:50→19:39)
[2021-07-03] MEDS: TOPIRAMATE 25 MG TAB PO SCH ×2 (07:50→19:41)
[2021-07-03] MEDS: lamoTRIgine 100 MG TAB PO SCH ×2 (07:51→19:40)
[2021-07-03] MEDS: GABAPENTIN 600 MG TAB PO SCH ×2 (07:51→19:38)
[2021-07-03] MEDS: FLUTICASONE/VILANTEROL 200/25MCG 14 PUFFS/INHALER INH SCH (07:55)
--- NOTE | 2021-07-03 12:21 | Hospitalist Progress Note ---
Date of Service July 03, 2021 Assessment & Plan (1) Decompensated heart failure: Plan: Right-sided heart failure Present on admission with worsening shortness of breath associated with weight gain CXR showed Marked cardiomegaly and cardiac pacemaker with no radiographic evidence of congestive failure. CT chest showed Cardiomegaly with mediastinal lipomatosis and lipomatous hypertrophy of the intra-atrial septum redemonstrated. Nephrology and cardiology on board to help with diuretic management Continue Lasix 100 mg IV twice daily Continue spironolactone 25 mg twice daily Continue fluid restriction Monitor renal function and electrolytes Chronic A. fib Sick sinus syndrome Single-chamber pacemaker Continue metoprolol 50 mg daily Continue Coumadin, INR 2.2 today Continue warfarin Continue monitor PT/INR Hypokalemia Resolved Potassium 4.6 today Continue K supplement while on diuretics and monitor H/O CAD S/P CABG Continue statin,aspirin, Isosorbide and Lopressor Hyperlipidemia On Rosuvastatin Obstructive sleep apnea CPAP at bedtime CKD III Monitor renal function Avoid Nephrotoxic agents as able Morbid obesity BMI:65.8 Life style modification counselling provided Depression Continue home medications HTN Continue Lopressor and Imdur Monitor BP DVT Px: on Coumadin Disposition Will discharge once medically stable CODE STATUS full code Admission and Anticipated Discharge Date Admission Date: June 24, 2021 Subjective 60-year-old man with history of chronic right-sided heart failure, cor pulmonale, OSCAR on BiPAP, SSS status post pacemaker on Coumadin, CAD status post CABG, hypertension, hyperlipidemia, COPD, CKD, chronic back pain, mood disorder presents with weight gain, abdominal distention, leg swelling, dyspnea on exertion. Being managed for heart failure exacerbation. Patient seen and examined this morning. Reports exertional dyspnea mildly improved +Cough Denies any chest pain, palpitation Denies any nausea, vomiting abdominal pain, diarrhea and patient Denies any fevers or chills Physical Exam Constitutional: + well hydrated and + obese; no acute distress Eyes: PERRL, conjunctivae normal, anicteric sclerae ENMT: external ear and nose normal, oropharynx normal Respiratory: Diminished breath sounds Cardiovascular: Rate/Rhythm: + irregularly irregular S1 S2 Gastrointestinal (Abdomen): normal bowel sounds, soft, nontender, no hepatosplenomegaly Musculoskeletal: +b/l AMBREEN Neurologic: PERRL, EOMI, accommodation nl, no face palsy, no dysarthria Psychiatric: A+Ox3, euthymic affect Results & Data Results & Data ([facility]) Vital Signs (Past 12 Hours) Vital Signs Temp Pulse Pulse Resp BP Pulse Ox 07/03/21 11:53 36.5 C 75 18 115/69 99 07/03/21 07:51 36.3 C L 70 20 134/75 98 07/03/21 07:00 65 07/03/21 05:49 36.3 C L 66 16 141/77 H 97 07/03/21 00:45 75 17 97 Laboratory Results Abnormal lab results 07/03/21 07/03/21 Range/Units 06:20 06:20 PT 21.9 H (9.0-12.0) Seconds INR 2.3 H (0.9-1.1) Sodium 135 L (136-145) mmol/L BUN 36 H (7-18) mg/dl Creatinine 2.08 H (0.6-1.4) mg/dl Magnesium 2.7 H (1.8-2.4) mg/dl
[2021-07-03] MEDS: ALBUT/IPRATROP 3MG/0.5MG NEB 3 ML VIAL NEB PRN (12:42)
--- NOTE | 2021-07-03 13:09 | Cardiology Progress Note ---
Date of Service July 03, 2021 Assessment & Plan (1) Nonadherence to medication: (2) Dietary noncompliance: (3) Breath shortness: (4) Exertional dyspnea: (5) SSS (sick sinus syndrome): (6) Syncope: (7) Status post placement of cardiac pacemaker: (8) CKD (chronic kidney disease): (9) Morbid obesity: (10) Right-sided congestive heart failure: (11) GERD with apnea: (12) Lower extremity edema: (13) Chronic atrial fibrillation: (14) CAD (coronary artery disease): (15) HTN (hypertension): (16) OSCAR (obstructive sleep apnea): (17) Cor pulmonale: Plan: The patient is slowly improving with less edema. He is nearing the end of his hospital stay. Unfortunately, he is at high risk for readmission. He is challenged and is likely not to be non-compliant with caring for himself. Admission and Anticipated Discharge Date Admission Date: June 24, 2021 Subjective Status unchanged. No complaints. Review of Systems Review of Systems: Review of Systems: See HPI for pertinent positives. All other 10 point review of systems are negative. Physical Exam Physical Exam: General: no acute distress and stated age Head: normocephalic, no masses, lesions, tenderness or abnormalities Eyes: conjunctiva are pink and non-injected, sclera clear Neck: supple, no adenopathy, no bruits, normal jugular venous pulse, no hepatojugular reflux Chest: normal shape and normal respiratory effort Lungs: clear to auscultation and percussion Cardiac Exam: - regular rate & rhythm, no murmurs gallops or rubs - normal S1, normal S2 Pulses: 2(+) throughout Abdomen: abdomen soft, non-tender, no abnormal masses and no hepatosplenomegaly Musculoskeletal: no gait disturbance, no joint inflammation, no deforming arthritis Extremities: Bilateral lower extremity edema Neuro: grossly normal exam Results & Data ([facility]) Vital Signs (Past 12 Hours) Vital Signs Temp Pulse Pulse Resp BP Pulse Ox 07/03/21 12:44 79 18 94 07/03/21 11:53 36.5 C 75 18 115/69 99 07/03/21 07:51 36.3 C L 70 20 134/75 98 07/03/21 07:00 65 07/03/21 05:49 36.3 C L 66 16 141/77 H 97 Laboratory Results Laboratory Results - last 24 hr 07/03/21 07/03/21 06:20 06:20 PT 21.9 H INR 2.3 H Sodium 135 L Potassium 4.6 Chloride 104 Carbon Dioxide 27 Anion Gap 4.0 BUN 36 H Creatinine 2.08 H Est Cr Clr Drug Dosing 58.7 Est GFR ( Amer) 39.2 Est GFR (Non-Af Amer) 33.8 BUN/Creatinine Ratio 17.4 Glucose 93 Calcium 9.5 Phosphorus 2.6 Magnesium 2.7 H Medications Administered Current Inpatient Medications Albuterol (Albut/Ipratrop 3mg/0.5mg Neb 3 Ml Vial) 3 ml NEB QIDR PRN PRN Reason: sob Stop: 07/27/21 18:59 Last Admin: 07/03/21 12:42 Dose: 3 ml Documented by: Aripiprazole (Aripiprazole 5 Mg Tab) 5 mg PO QAM CHRISTINE Stop: 07/25/21 08:59 Last Admin: 07/03/21 07:50 Dose: 5 mg Documented by: Escitalopram Oxalate (Escitalopram Oxalate 10 Mg Tab) 10 mg PO DAILY CHRISTINE Stop: 07/25/21 08:59 Last Admin: 07/03/21 07:48 Dose: 10 mg Documented by: Fluticasone/Vilanterol (Fluticasone/Vilanterol 200/25mcg 14 Puffs/Inhaler) 1 puffs INH DAILY CHRISTINE Stop: 07/25/21 08:59 Last Admin: 07/03/21 07:55 Dose: 1 puffs Documented by: Furosemide (Furosemide 40 Mg/4 Ml Vial) 80 mg IV Q12 CHRISTINE Stop: 07/26/21 20:59 Last Admin: 07/03/21 07:48 Dose: 80 mg Documented by: Furosemide (Furosemide Inj 20 Mg/2 Ml Vial) 20 mg IV Q12 CHRISTINE Stop: 07/26/21 20:59 Last Admin: 07/03/21 07:48 Dose: 20 mg Documented by: Gabapentin (Gabapentin 600 Mg Tab) 600 mg PO BID CHRISITNE Stop: 07/25/21 00:59 Last Admin: 07/03/21 07:51 Dose: 600 mg Documented by: Promethazine HCl 12.5 mg/ (Sodium Chloride) 50.5 mls @ 202 mls/hr IV Q6H PRN PRN Reason: Nausea And Vomiting Stop: 12/19/21 00:15 Isosorbide Mononitrate (Isosorbide Tillman Extended Rel 30 Mg Tabcr) 30 mg PO [facility] Stop: 07/25/21 08:59 Last Admin: 07/03/21 07:49 Dose: 30 mg Documented by: Lamotrigine (Lamotrigine 100 Mg Tab) 200 mg PO BID [facility] Stop: 07/25/21 08:59 Last Admin: 07/03/21 07:51 Dose: 200 mg Documented by: Lidocaine (Lidocaine 5% 1 Patch) [facility] [place] [facility] Stop: 07/28/21 20:19 Last Admin: 07/03/21 07:47 Dose: 1 patch Documented by: Metoprolol Succinate (Metoprolol Succ 50mg Ext Rel Tab) 50 mg PO DAILY [facility] Stop: 07/25/21 08:59 Last Admin: 07/03/21 07:49 Dose: 50 mg Documented by: Miscellaneous (Remove Nicoderm Patch) 1 ea N/A DAILY@0859 [facility] Stop: 07/27/21 08:58 Last Admin: 07/03/21 07:54 Dose: 1 ea Documented by: Miscellaneous (Remove Lidoderm Patch) 1 ea N/A DAILY@2100 [facility] Stop: 07/29/21 08:29 Last Admin: 07/02/21 19:45 Dose: 1 ea Documented by: Nicotine (Nicotine 14 Mg/24 Hr Patch) 14 mg TD QAM [facility] Stop: 07/26/21 14:59 Last Admin: 07/03/21 07:47 Dose: 14 mg Documented by: Nitroglycerin (Nitroglycerin Sl 0.4 Mg/Tab Tab) 0.4 mg SL UD PRN PRN Reason: Chest Pain Stop: 07/25/21 00:15 Oxycodone HCl (Oxycodone Hcl Ir 5 Mg Tab (Immediate Release)) 5 - 10 mg PO QID PRN PRN Reason: Pain Stop: 07/09/21 00:15 Last Admin: 07/03/21 06:35 Dose: 10 mg Documented by: Potassium Chloride (Potassium Chloride Crtab 20 Meq Tabcr) 40 meq PO QID [facility] Stop: 07/29/21 12:59 Last Admin: 07/03/21 12:40 Dose: 40 meq Documented by: Quetiapine Fumarate (Quetiapine Fumarate 200 Mg Tab) 200 mg PO HS [facility] Stop: 07/25/21 00:15 Last Admin: 07/02/21 23:00 Dose: 200 mg Documented by: Rosuvastatin Calcium (Rosuvastatin Calcium 20 Mg Tab) 40 mg PO DAILY CHRISTINE Stop: 07/25/21 08:59 Last Admin: 07/03/21 07:49 Dose: 40 mg Documented by: Spironolactone (Spironolactone 25 Mg Tab) 25 mg PO BID CHRISTINE Stop: 07/26/21 20:59 Last Admin: 07/03/21 07:50 Dose: 25 mg Documented by: Sucralfate (Sucralfate 1 Gm Tab) 1 gm PO DAILY CHRISTINE Stop: 07/25/21 08:59 Last Admin: 07/03/21 07:48 Dose: 1 gm Documented by: Tamsulosin HCl (Tamsulosin Hcl 0.4 Mg Cap) 0.4 mg PO HS [facility] Stop: 07/25/21 20:59 Last Admin: 07/02/21 19:46 Dose: 0.4 mg Documented by: Topiramate (Topiramate 25 Mg Tab) 25 mg PO BID CHRISTINE Stop: 07/25/21 08:59 Last Admin: 07/03/21 07:50 Dose: 25 mg Documented by: Warfarin Sodium (Warfarin Sod 5 Mg Tab) 5 mg PO DAILY@1600 [facility] Stop: 07/28/21 15:59 Last Admin: 07/02/21 16:57 Dose: 5 mg Documented by: Zolpidem Tartrate (Zolpidem Tartrate 5 Mg Tab) 5 mg PO HS PRN PRN Reason: Sleep Stop: 07/25/21 00:15 Last Admin: 07/02/21 23:00 Dose: 5 mg Documented by: (1) CKD (chronic kidney disease) Chronic kidney disease stage: unspecified stage Qualified Code(s): N18.9 - Chronic kidney disease, unspecified (2) Syncope Syncope type: unspecified Qualified Code(s): R55 - Syncope and collapse
--- NOTE | 2021-07-03 14:00 | Nephrology Progress Note ---
Date of Service July 03, 2021 Assessment & Plan (1) Acute renal insufficiency: Plan: stage 2 nonoliguric EDSON from baseline creatinine 1.1; chemistries acceptable. edson d/t decompensated HF, nonadherence to meds, diet. ongoing volume overload continue current diuresis plan -cont aldactone current dose -cont lasix 100 mg IV bid -today will lower dosing of K 40 mEq 3 times daily -Continue tightened FR from 2L > 1.8L Ordered less than 2 g daily sodium diet >needs to continue daily standing wt; nursing efforts appreciated -ensure he has daily bmp Admission and Anticipated Discharge Date Admission Date: June 24, 2021 Subjective no acute interval clinical events; breathing slightly better; no standing wt today Review of Systems Review of Systems: All systems reviewed & are unremarkable except as noted in Subjective Physical Exam Constitutional: well developed, well nourished, + morbidly obese and cooperative Eyes: EOM intact bilaterally ENMT: Ears: no external ear abnormality Nose: no external nose abnormality Mouth: + dry oral mucous membranes Neck: no nuchal rigidity Respiratory: normal respiratory effort Auscultation: + diminished lung soun ds (tubular) and + abnormal I/E ratio Cardiovascular: Rate/Rhythm: regular rate and regular rhythm Extremities: + edema (2+) Gastrointestinal (Abdomen): Inspection/Auscultation: + abdomen distended and normal bowel sounds Percussion/Palpation: abdomen soft; abdomen nontender Musculoskeletal: Extremities: strength 5/5 throughout Skin: no rashes, warm and dry Neurologic: riley, fluent/appropriate speech, no tremor Psychiatric: Orientation: oriented x 3 Results & Data ([facility]) Vital Signs (Past 12 Hours) Vital Signs Temp Pulse Pulse Resp BP Pulse Ox 07/03/21 12:44 79 18 94 07/03/21 11:53 36.5 C 75 18 115/69 99 07/03/21 07:51 36.3 C L 70 20 134/75 98 07/03/21 07:00 65 07/03/21 05:49 36.3 C L 66 16 141/77 H 97 Laboratory Results 07/01/21 07:46 07/03/21 06:20
[2021-07-03] MEDS: WARFARIN SOD 5 MG TAB PO SCH (16:09)
[2021-07-03] MEDS: TAMSULOSIN HCL 0.4 MG CAP PO SCH (19:42)
[2021-07-03] MEDS: ZOLPIDEM TARTRATE 5 MG TAB PO PRN (23:11)
[2021-07-03] MEDS: QUEtiapine FUMARATE 200 MG TAB PO SCH (23:11)
[2021-07-04 07:03] LABS: INR 2.5 (0.9-1.1); Prothrombin Time 23.3 Seconds (9.0-12.0)
[2021-07-04 07:11] LABS: BUN Creatinine Ratio 19.4 (10-20); Calcium 9.2 mg/dl (8.5-10.1); Creatinine Clr Calc Pharmacy 64.3 ml/min; Est GFR (African American) 44.6 ml/min; Est GFR (Non-African American) 38.5 ml/min; Magnesium 2.6 mg/dl (1.8-2.4); Phosphorus 2.4 mg/dl (2.5-4.9); Potassium 4.4 mmol/L (3.5-5.1)
[2021-07-04] MEDS: METOPROLOL SUCC 50MG EXT REL TAB PO SCH (07:54)
[2021-07-04] MEDS: ESCITALOPRAM OXALATE 10 MG TAB PO SCH (07:54)
[2021-07-04] MEDS: ARIPiprazole 5 MG TAB PO SCH (07:54)
[2021-07-04] MEDS: ISOSORBIDE MONO EXTENDED REL 30 MG TABCR PO SCH (07:54)
[2021-07-04] MEDS: ROSUVASTATIN CALCIUM 20 MG TAB PO SCH (07:54)
[2021-07-04] MEDS: POTASSIUM CHLORIDE CRTAB 20 MEQ TABCR PO SCH ×3 (07:55→20:42)
[2021-07-04] MEDS: SPIRONOLACTONE 25 MG TAB PO SCH ×2 (07:55→20:46)
[2021-07-04] MEDS: SUCRALFATE 1 GM TAB PO SCH (07:55)
[2021-07-04] MEDS: TOPIRAMATE 25 MG TAB PO SCH ×2 (07:55→20:43)
[2021-07-04] MEDS: lamoTRIgine 100 MG TAB PO SCH ×2 (07:56→20:42)
[2021-07-04] MEDS: LIDOCAINE 5% 1 PATCH TD SCH (07:56)
[2021-07-04] MEDS: NICOTINE 14 MG/24 HR PATCH TD SCH (07:56)
[2021-07-04] MEDS: FUROSEMIDE 40 MG/4 ML VIAL IV SCH ×2 (07:57→20:48)
[2021-07-04] MEDS: FLUTICASONE/VILANTEROL 200/25MCG 14 PUFFS/INHALER INH SCH (07:57)
[2021-07-04] MEDS: GABAPENTIN 600 MG TAB PO SCH ×2 (07:58→20:40)
[2021-07-04] MEDS: FUROSEMIDE INJ 20 MG/2 ML VIAL IV SCH ×2 (07:58→20:48)
--- NOTE | 2021-07-04 15:43 | Hospitalist Progress Note ---
Date of Service July 04, 2021 Assessment & Plan (1) Decompensated heart failure: Plan: Right-sided heart failure Present on admission with worsening shortness of breath associated with weight gain CXR showed Marked cardiomegaly and cardiac pacemaker with no radiographic evidence of congestive failure. CT chest showed Cardiomegaly with mediastinal lipomatosis and lipomatous hypertrophy of the intra-atrial septum redemonstrated. 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 Patient can be discharged on po diuretic. Per RN, patient cannot read and that probably contributes to poor adherence Patient reports he uses pill pack. Will hold off discharging patient today with plan to get in touch with [facility] that follows patient tomorrow to ensure close follow up on discharge tomorrow with respect to meds/pill packaging/supply Continue spironolactone 25 mg twice daily Continue fluid restriction Monitor renal function and electrolytes Chronic A. fib Sick sinus syndrome Single-chamber pacemaker Continue metoprolol 50 mg daily Continue Coumadin, INR 2.5 today Continue warfarin Continue monitor PT/INR Hypokalemia Resolved Potassium 4.4 today Continue K supplement while on diuretics and monitor H/O CAD S/P CABG Continue statin,aspirin, Isosorbide and Lopressor Hyperlipidemia On Rosuvastatin Obstructive sleep apnea CPAP at bedtime CKD III Monitor renal function Avoid Nephrotoxic agents as able Morbid obesity BMI:65.8 Depression Continue home medications DVT Px: on Coumadin Disposition Plan to discharge tomorrow CODE STATUS full code Admission and Anticipated Discharge Date Admission Date: June 24, 2021 Subjective 60-year-old man with history of chronic right-sided heart failure, cor pulmonale, OSCAR on BiPAP, SSS status post pacemaker on Coumadin, CAD status post CABG, hypertension, hyperlipidemia, COPD, CKD, chronic back pain, mood disorder presents with weight gain, abdominal distention, leg swelling, dyspnea on exertion. Being managed for heart failure exacerbation. Patient seen and examined today Still reports cough and occasional exertional dyspnea Denies any chest pain, palpitation Denies any nausea, vomiting abdominal pain, diarrhea and patient Denies any fevers or chills Physical Exam Constitutional: + well hydrated and + obese; no acute distress Eyes: PERRL, conjunctivae normal, anicteric sclerae ENMT: external ear and nose normal, oropharynx normal Cardiovascular: Rate/Rhythm: + irregularly irregular S1 S2 Gastrointestinal (Abdomen): normal bowel sounds, soft, nontender, no hepatosplenomegaly Musculoskeletal: Pedal edema improved Neurologic: PERRL, EOMI, accommodation nl, no face palsy, no dysarthria Psychiatric: A+Ox3, euthymic affect Results & Data Results & Data ([facility]) Vital Signs (Past 12 Hours) Vital Signs Temp Pulse Resp BP BP Pulse Ox 07/04/21 11:52 36.5 C 77 23 120/73 94 07/04/21 08:21 36.4 C L 71 22 142/78 H 95 07/04/21 05:32 36.2 C L 70 18 112/75 97 Laboratory Results Abnormal lab results 07/04/21 07/04/21 Range/Units 06:28 06:28 PT 23.3 H (9.0-12.0) Seconds INR 2.5 H (0.9-1.1) Chloride 108 H (98-107) mmol/L BUN 36 H (7-18) mg/dl Creatinine 1.87 H (0.6-1.4) mg/dl Phosphorus 2.4 L (2.5-4.9) mg/dl Magnesium 2.6 H (1.8-2.4) mg/dl
[2021-07-04] MEDS: WARFARIN SOD 5 MG TAB PO SCH (16:41)
[2021-07-04] MEDS: ALBUT/IPRATROP 3MG/0.5MG NEB 3 ML VIAL NEB PRN (17:40)
[2021-07-04] MEDS: TAMSULOSIN HCL 0.4 MG CAP PO SCH (20:45)
[2021-07-04] MEDS: oxyCODONE HCL IR 5 MG TAB (IMMEDIATE RELEASE) PO PRN (20:57)
[2021-07-04] MEDS: QUEtiapine FUMARATE 200 MG TAB PO SCH (22:52)
[2021-07-04] MEDS: ZOLPIDEM TARTRATE 5 MG TAB PO PRN (22:52)
[2021-07-05 07:06] LABS: INR 2.2 (0.9-1.1); Prothrombin Time 21.1 Seconds (9.0-12.0)
[2021-07-05 07:30] LABS: BUN Creatinine Ratio 16.3 (10-20); Calcium 9.3 mg/dl (8.5-10.1); Creatinine Clr Calc Pharmacy 64.5 ml/min; Est GFR (African American) 44.9 ml/min; Est GFR (Non-African American) 38.7 ml/min; Magnesium 2.6 mg/dl (1.8-2.4); Phosphorus 2.4 mg/dl (2.5-4.9); Potassium 4.2 mmol/L (3.5-5.1)
[2021-07-05] MEDS: ARIPiprazole 5 MG TAB PO SCH (08:27)
[2021-07-05] MEDS: ESCITALOPRAM OXALATE 10 MG TAB PO SCH (08:27)
[2021-07-05] MEDS: FLUTICASONE/VILANTEROL 200/25MCG 14 PUFFS/INHALER INH SCH (08:28)
[2021-07-05] MEDS: ISOSORBIDE MONO EXTENDED REL 30 MG TABCR PO SCH (08:28)
[2021-07-05] MEDS: GABAPENTIN 600 MG TAB PO SCH (08:28)
[2021-07-05] MEDS: FUROSEMIDE INJ 20 MG/2 ML VIAL IV SCH (08:28)
[2021-07-05] MEDS: FUROSEMIDE 40 MG/4 ML VIAL IV SCH (08:28)
[2021-07-05] MEDS: METOPROLOL SUCC 50MG EXT REL TAB PO SCH (08:29)
[2021-07-05] MEDS: lamoTRIgine 100 MG TAB PO SCH (08:29)
[2021-07-05] MEDS: LIDOCAINE 5% 1 PATCH TD SCH (08:29)
[2021-07-05] MEDS: SPIRONOLACTONE 25 MG TAB PO SCH (08:30)
[2021-07-05] MEDS: POTASSIUM CHLORIDE CRTAB 20 MEQ TABCR PO SCH (08:30)
[2021-07-05] MEDS: NICOTINE 14 MG/24 HR PATCH TD SCH (08:30)
[2021-07-05] MEDS: ROSUVASTATIN CALCIUM 20 MG TAB PO SCH (08:30)
[2021-07-05] MEDS: TOPIRAMATE 25 MG TAB PO SCH (08:31)
[2021-07-05] MEDS: SUCRALFATE 1 GM TAB PO SCH (08:31)
[2021-07-05] MEDS: oxyCODONE HCL IR 5 MG TAB (IMMEDIATE RELEASE) PO PRN (10:09)
--- NOTE | 2021-07-05 12:27 | Discharge Summary ---
Date of Service July 05, 2021 Admission HPI Per Admitting Provider History obtained from patient and records. Medical history significant for chronic right-sided heart failure (EF 55- 60%, TTE 2020), cor pulmonale, OSCAR on BiPAP, SSS status post PPM on Coumadin, CAD status post CABG, hypertension, hyperlipidemia, COPD as per records, CRI (baseline creatinine 2.2), chronic back pain, mood disorder, chronic anemia (baseline hemoglobin of 12), past tobacco/alcohol abuse as per records. Last confinement March 2021 for right-sided heart failure. Patient discharged on diuretic regimen. Since discharge to home, patient noted gradual weight gain, abdominal distention, bilateral leg swelling, and occasional shortness of breath mostly on exertion. No chest pain. Patient admits to dietary indiscretion and not following fluid restriction instructions. Patient claims to be compliant with home medications and CPAP. Home nursing concerns about patient inability to follow through with recommendations. Outpatient serum creatinine steadily increasing from baseline to 2.2 over the last few months. Patient seen by [facility] automotive consultant outpatient last month. Outpatient renal ultrasound from last month showed medical renal disease. No hydronephrosis. Patient directed to ER after evaluation at [facility] hogshead roller office today. Medical History as above Surgical History : CABG, dental surgery, orthopedic procedures Family History : Pancreatitis, leukemia Personal/Social history : Past tobacco/alcohol abuse, disabled Admission Exam Per Admitting Provider GENERAL: Pleasant, morbidly obese, no respiratory distress SKIN: Pallor, warm HEENT: Pale palpebral conjunctivae, no ptosis, chronic lip symmetry as per patient, moist buccal mucosa NECK : Supple, short neck, no tenderness CHEST : Decreased breath sounds, no tenderness HEART : Irregular, no obvious murmurs ABDOMEN: distention, nontender EXTREMITIES : Bilateral LE swelling, no LE tenderness, no other conspicuous deformities noted NEUROLOGIC : Coherent, no facial asymmetry, no other gross focality Principal Diagnosis Right sided heart failure, decompensated Non adherence to medications Chronic atrial fibrillation Discharge Exam Constitutional + well hydrated and + obese; no acute distress Eyes PERRL, conjunctivae normal, anicteric sclerae ENMT external ear and nose normal, oropharynx normal Respiratory Diminished breath sounds Cardiovascular Rate/Rhythm: + irregularly irregular Normal rate S1 S2 Gastrointestinal (Abdomen) normal bowel sounds, soft, nontender, no hepatosplenomegaly Musculoskeletal Pedal edema (improved) Neurologic PERRL, EOMI, accommodation nl, no face palsy, no dysarthria Psychiatric A+Ox3, euthymic affect Discharge Data Allergies Allergy/AdvReac Type Severity Reaction Status Date / Time morphine AdvReac Mild nausea and Verified 06/24/21 22:33 vomiting Consultations 06/24/21 20:57 ED Decision to Admit Stat 06/25/21 00:16 Consult Cardiology Routine Consult Nephrology Routine Ordered Studies 06/25/21 09:40 CT abd pelvis wo con Routine CT chest diagnostic wo con Routine CT CHEST: No thyroid nodule. Left subclavian pacer. Marked cardiomegaly with prior median sternotomy and CABG. Extensive [place] coronary artery calcifications. Mediastinal lipomatosis with prominence of the pericardial fat. Lipomatous hypertrophy of the interatrial septum. No pericardial effusion. Atherosclerosis of the thoracic aorta without aneurysm. No adenopathy. Calcified right hilar lymph nodes redemonstrated. No pneumothorax, pleural effusion, or overt pulmonary edema. Calcified granulomata of the right lower lobe. Bronchial wall thickening. Linear subsegmental left greater than right bibasilar consolidative opacities. There are no suspicious pulmonary nodules or masses. No lobar airspace consolidation. Suggested tracheobronchomalacia. The imaged soft tissues are unremarkable with gynecomastia. No acute fracture. Degenerative changes of the shoulders and spin e. Mild superior endplate compression involving several thoracic segment appears chronic. CT ABDOMEN/PELVIS: No pneumatosis or pneumoperitoneum. Portions of the patient's anatomy outside the [id number] secondary to body habitus. There is associated beam hardening artifact. Calcified granulomata of the spleen. Hepatomegaly with suggested mild hepatic steatosis. Mild marginal nodularity of the liver is equivocal for early cirrhotic change. Unremarkable pancreas, gallbladder and adrenal glands. No hydronephrosis. Exophytic hypodense foci the left kidney suggestive of cysts. There is intermediate attenuating indeterminate 2.1 cm lesion of the left kidney with Hounsfield of 25. No renal or ureteral calculi or hydronephrosis. The compressed urinary bladder with Tellez catheter. Unremarkable prostate. No abdominal aortic aneurysm or adenopathy. No bowel obstruction or bowel wall thickening. Mild fecal retention. Normal appendix. No ascites or mesenteric inflammation. Degenerative changes of the spine, pelvis and hips. No acute fracture identified. IMPRESSION: 1. Linear subsegmental bibasilar consolidative opacities suggest atelectasis. 2. No acute intra-abdominal or intrapelvic abnormality. 3. Prior granulomatous disease. 4. Cardiomegaly with mediastinal lipomatosis and lipomatous hypertrophy of the intra-atrial septum redemonstrated. 5. Indeterminate intermediate attenuating 2.1 cm lesion of the interpolar left kidney, possibly a complex cyst. This could be correlated with a nonemergent follow-up renal ultrasound to exclude a solid lesion. 6. Additional findings as above. Hospital Course (1) Decompensated heart failure: Right-sided heart failure Present on admission with worsening shortness of breath associated with weight gain CXR showed Marked cardiomegaly and cardiac pacemaker with no radiographic evidence of congestive failure. CT chest showed Cardiomegaly with mediastinal lipomatosis and lipomatous hypertrophy of the intra-atrial septum redemonstrated. Was comanaged with Nephrology and cardiology Required IV diuresis inpatient Based on my interaction with patient, as well as previous Providers, Patient has some intellectual disability though he performs his ADLs He also cannot read All these likely contribute to his poor adherence. Sister who usually helps moved out of town Coordinator, Juan Wells reported [email or web address] will not take patient back on due to poor adherence/compliance issues. She also contacted [facility] that prepares patient's pill pack about medication changes Discharged on torsemide 80mg bid, metolazone 2.5mg MWF (reduced from 5mg), KCl 60mg TID, continue aldactone 50mg BID; per Nephrology and Factory Focus Technician I spent sometime educating patient on dietary and fluid restriction for heart failure Needs close follow up with PCP, Cardiology and Nephrology CM arrange HH Continue other home medications including warfarin, statin, imdur, metoprolol Continue home CPAP Total Time Total Time Spent Total Time Spent (In Minutes): 65 Total Time Includes: Examination of the Patient, Discharge Planning, Medication Reconciliation, Communication With Other Providers and Other Discharge Plan Discharge Items Patient Disposition: Home - Home Health Services Reason For Visit: Shortness of breath with exertion Discharge Diagnosis: Right sided heart failure, decompensated Non adherence to medications Chronic atrial fibrillation Activity: Resume your previous activity Non-emergency contact: Primary Care Provider and Factory Focus Technician Call non-emergency contact if: you have any medication questions and your symptoms worsen Follow-up/Referrals: Moi Calles MD [Surgeon] - (Date & Time 07/16/2021 8:00 AM Provider Moi Calles MD Department Nephrology, [facility] ) Jp Morillo MD [Primary Care Provider] - (Date & Time 07/12/2021 9:40 AM Provider Jp Morillo MD Department [facility] ) Diet: Heart Healthy Fluids: 1800ml (7 cups) Addtl Attending Provider Instructions: Mr. Foster. You came to the hospital due to increasing shortness of breath with exertion, cough, increased weight gain. You were evaluated none managed for heart failure exacerbation. You required IV diuresis in the hospital. You your medications were adjusted as detailed in the medication list. It is extremely important that you take your medication as prescribed as well as adhere to fluid and dietary restriction for heart failure management at home. Please ensure follow-up with your primary care doctor and hogshead roller. It was a pleasure taking care of you Pending Studies at Discharge: No Stand-Alone Forms: My [facility] Figment, Smoking Cessation Medications and DC Order Prescriptions: Continued gabapentin 600 mg Tablet 600 mg PO BID RF: 0 lamotrigine [Lamictal] 200 mg Tablet 200 mg PO BID RF: 0 isosorbide mononitrate 30 mg Tablet Extended Release 24 Hr 30 mg PO QAM RF: 0 topiramate [Topamax] 25 mg Tablet 25 mg PO BID RF: 0 nitroglycerin [Nitrostat] 0.4 mg Tablet, Sublingual 0.4 mg Sublingual DIRECTED PRN (Reason: Chest Pain) RF: 0 zolpidem [Ambien] 5 mg Tablet 5 mg PO HS PRN (Reason: Sleep) RF: 0 albuterol sulfate [ProAir HFA] 90 mcg/actuation Hfa Aerosol Inhaler 2 puff INHALATION QID PRN (Reason: Shortness Of Breath Or Wheezing) RF: 0 fluticasone propion-salmeterol [Advair Diskus] 250-50 mcg/dose Blister With Device 1 inh INHALATION BID RF: 0 albuterol sulfate 2.5 mg /3 mL (0.083 %) Solution For Nebulization 2.5 mg INHALATION Q6 PRN (Reason: Shortness Of Breath Or Wheezing) RF: 0 escitalopram oxalate [Lexapro] 10 mg tablet 10 mg PO DAILY RF: 0 aripiprazole [Abilify] 5 mg tablet 5 mg PO QAM RF: 0 rosuvastatin [Crestor] 40 mg tablet 40 mg PO DAILY RF: 0 metoprolol succinate 50 mg tablet extended release 24 hr 50 mg PO DAILY RF: 0 spironolactone 50 mg tablet 50 mg PO BID RF: 0 warfarin 5 mg tablet 5 mg PO QPM RF: 0 quetiapine [Seroquel] 200 mg tablet 200 mg PO HS RF: 0 sucralfate 1 gram tablet 1 g PO DAILY RF: 0 tamsulosin 0.4 mg capsule 0.4 mg PO HS RF: 0 ezetimibe 10 mg tablet 10 mg PO DAILY RF: 0 Changed torsemide 20 mg tablet 80 mg PO BID Qty: 240 RF: 1 metolazone 5 mg tablet 2.5 mg PO MOWEFR Qty: 6 RF: 0 potassium chloride 20 mEq tablet,ER particles/crystals 60 meq PO TID Qty: 300 RF: 0 Discontinued potassium chloride 20 mEq tablet,ER particles/crystals 60 meq PO TID RF: 0 Discharge Orders: Discharge Order (Routine); Ordered 07/05/21 Ordered By: Maryann Beatty/Other Patient Handouts: 5 Steps for Eating Healthier Admission Data Admit Date/Time: 06/24/21 22:22 Attending Provider: Maryann Montanez I. Admit Provider: Romaine Ashford Primary Care Provider: Jp Morillo Other Providers: Romaine Ashford ; Peyman Dumont ; Milton Oliver ; Steven Ariza ; Jorge Manzanares ; Avtar Rea ; Álvaro Boggs ; Arlin Dumont ; Miryam Correia ; Jessica Washburn ; Hector Davies ; Brooke Valderrama ; Moi Calles ; Jade Maciel ; Jane Marcum ; Consuelo Mane ; Juan J Hawk ; Dante Huynh ; [facility] Other Interventions: Discharge Summary Assessment (RN) Last Done: 07/05/21 12:37
== END 2021-07-05 13:09 | disposition home health service (06) | DRG 292 ==
LOC: ED 15:12 → SUATTDRO 22:22 → EDINP 22:22 → 2S 06-25 00:20

== ENCOUNTER 2021-07-28 15:25 | Inpatient (IN) ==
--- NOTE | 2021-07-28 15:35 | Emergency Department Note ---
Impression & Plan Hypoxia ADMIT ED Provider Note HPI: Patient arrived to the ED via EMS ambulance The patient is a 60-year-old male with history of morbid obesity, coronary artery disease, sick sinus syndrome status post pacemaker, history of heart failure with preserved ejection fraction per echocardiogram 06/27, chronic atrial fibrillation, on Coumadin, presents the emergency department with a chief complaint of worsening shortness of breath for the past 10 days. Patient was evaluated by his home nurse today, concern for work of breathing, he was noted to have a oxygen saturation at some point at 86% on room air. He was referred to the emergency department for further assessment. Patient was placed on supplemental oxygen and transported via EMS, his oxygen saturations did improve to 95% per EMS report. On arrival here to the ED he is on room air, he is saturating at 93% at rest. He is otherwise in no acute distress. Patient denies any chest pain, denies any nausea or vomiting, denies any recent fevers or cough. States he is vaccinated against COVID-19 x3. ROS: -Pulmonary: Shortness of breath *10 point review systems was conducted and is otherwise negative unless stated above *Outpatient medications and allergy history reviewed PE: General: Alert, NAD, morbidly obese HEENT: Normocephalic, atraumatic, trachea midline Eyes: Extraocular eye movement is intact, no scleral erythema Pulmonary: Diminished bilaterally, no wheezing Cardio: Regular rate and irregular rhythm GI: Abdomen is soft, nontender : No suprapubic tenderness MSK: No evidence of trauma or malformation of the extremities, 2-3 + pitting edema of the bilateral lower extremities Skin: No evidence of rash Neuro: Alert, no focal deficits 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 He is morbidly obese. He is noted to be saturating at about 93% on room air initially on arrival but he did have desaturations back down to 89% at rest and was placed back on nasal cannula oxygen. Labwork shows a leukocytosis, patient has had this somewhat chronically on a review of his previous lab work. His INR is subtherapeutic at 1.7, he tells me he is on Coumadin for history of atrial fibrillation. Troponin is negative x1, EKG does not show any acute ischemic changes. Interventions included IV Lasix. Imaging was obtained including a chest x-ray that shows evidence of cardiomegaly without any evidence of infiltrate or pneumonia. COVID-19 testing was obtained and is negative. I discussed the above lab findings with the patient, he tells me he is having some mild atypical chest discomfort at night when he lays down to sleep. Given the fact that his INR is subtherapeutic at 1.7, I will order CT angiography of the chest to rule out PE, discussed with the hospitalist service and they will follow up on this result. I think the patient needs to be admitted regardless of the results of CT imaging. At this time he is hemod ynamically stable on nasal cannula oxygen. On re-evaluation patient appears more comfortable on nasal cannula oxygen, he does not wear this at baseline. I suspect that his symptoms are secondary to fluid overload. He was given a dose of Lasix here in the ED. Case was discussed with the on-call midlevel provider for [facility] service and the patient will be admitted to a telemetry bed for further management of hypoxia thought to be secondary to CHF/fluid overload. Patient was in agreement to this plan he was admitted in stable condition. * CRITICAL CARE TIME: ( 33 ) minutes -Stabilization of hypoxia with oxygen saturations less than 90% on room air requiring supplemental oxygen for correction, time spent at the bedside, interpretation of diagnostic studies, discussion with the patient, discussion with other healthcare providers and arrangement of admission Diagnosis: 1. Hypoxia with new supplemental oxygen requirement 2. Acute on chronic CHF exacerbation with hypercarbia 3. Morbid obesity 4. Chronic atrial fibrillation with subtherapeutic INR Disposition: Admission Álvaro Reyes DO Emergency Medicine Past Med/Surg History Medical History (Updated 07/28/21 @ 17:21 by Álvaro Reyes DO) CAD (coronary artery disease) CAD (coronary artery disease) Chronic atrial fibrillation Chronic back pain CKD (chronic kidney disease) stage 3, GFR 30-59 ml/min Cor pulmonale Depression HTN (hypertension) Hyperlipidemia Hypertension Obesities, morbid OSCAR (obstructive sleep apnea) Volume overload Surgical History S/P CABG x 4 Social History Smoking Status: Never smoker Second Hand Exposure: No; Hx Alcohol Use: No Hx Substance Use: No Preferred Language: Setswana Communication Ability: Effective Hearing Ability: Normal Regulatory Intern Required: No Beliefs That Will Affect Care: None marital status: Single Current Living Situation: Alone Current Living Situation Comment: fist floor appartment Feels Safe at Home: Yes Assistive Devices: None Allergies Allergies Allergy/AdvReac Type Severity Reaction Status Date / Time morphine AdvReac Mild nausea and Verified 07/28/21 16:17 vomiting Home Meds Home Medications Medication Instructions Recorded Confirmed albuterol sulfate 90 mcg/actuation 2 puff INHALATION QID PRN 05/04/18 07/28/21 aerosol inhaler (ProAir HFA) gabapentin 600 mg tablet 600 mg PO BID 05/04/18 07/28/21 isosorbide mononitrate 30 mg 30 mg PO QAM 05/04/18 07/28/21 tablet,extended release 24 hr lamotrigine 200 mg tablet 200 mg PO BID 05/04/18 07/28/21 (Lamictal) nitroglycerin 0.4 mg sublingual 0.4 mg SUBLINGUAL DIRECTED PRN 05/04/18 07/28/21 tablet (Nitrostat) topiramate 25 mg tablet (Topamax) 25 mg PO BID 05/04/18 07/28/21 zolpidem 5 mg tablet (Ambien) 5 mg PO HS PRN 05/04/18 07/28/21 albuterol sulfate 2.5 mg INHALATION Q6 PRN 03/03/20 07/28/21 aripiprazole 5 mg tablet (Abilify) 5 mg PO QAM 03/03/20 07/28/21 escitalopram oxalate 10 mg tablet 10 mg PO DAILY 03/03/20 07/28/21 (Lexapro) fluticasone 250 mcg-salmeterol 50 1 inh INHALATION BID 03/03/20 07/28/21 mcg/dose blistr powdr for inhalation (Advair Diskus) rosuvastatin 40 mg tablet (Crestor) 40 mg PO DAILY 03/03/20 07/28/21 metoprolol succinate 50 mg 50 mg PO DAILY 02/05/21 07/28/21 tablet,extended release 24 hr quetiapine 200 mg tablet (Seroquel) 200 mg PO HS 02/05/21 07/28/21 spironolactone 50 mg tablet 50 mg PO BID 02/05/21 07/28/21 warfarin 5 mg tablet 5 mg PO QPM 02/05/21 07/28/21 ezetimibe 10 mg tablet 10 mg PO DAILY 06/24/21 07/28/21 sucralfate 1 gram tablet 1 g PO DAILY 06/24/21 07/28/21 tamsulosin 0.4 mg capsule 0.4 mg PO HS 06/24/21 07/28/21 cholecalciferol (vitamin D3) 125 125 mcg PO QDD 07/28/21 07/28/21 mcg (5,000 unit) tablet (Vitamin D3) Previous Rx's Medication Instructions Recorded metolazone 5 mg tablet 2.5 mg PO MOWEFR #6 tab 07/05/21 potassium chloride 20 mEq 60 meq PO TID #300 tab 07/05/21 tablet,extended release(part/cryst) torsemide 20 mg tablet 80 mg PO BID #240 tab 07/05/21 Results & Data (ED) Vital Signs Vital Signs - 24 hr 07/28/21 15:33 07/28/21 16:58 Temperature 37.3 C Temperature Source Oral Pulse Rate 95 H Pulse Rate [Right Finger] 91 H Pulse Rhythm Regular Pulse Rhythm [Right Finger] Irregular Pulse Strength Normal Pulse Strength [Right Finger] Normal Respiratory Rate 17 19 Respiratory Effort / Characteristics Spontaneous SOB on Exertion Non-Labored Respiratory Depth Shallow Normal Respiratory Pattern Regular Regular Blood Pressure 105/79 Blood Pressure [Right Arm] 113/68 Blood Pressure Mean 87 Blood Pressure Mean [Right Arm] 83 Blood Pressure Position Lying Blood Pressure Position [Right Arm] Lying Pulse Oximetry 95 89 L Oxygen Delivery Method Nasal Cannula Room Air Oxygen Flow Rate 2 Sepsis Recent Fever Within 48 Hours No Sepsis New/Unexplained Change in Mental Status N/A Sepsis Action Taken by Nursing No Action Required Laboratory Data Result diagrams: 07/28/21 16:03 07/28/21 16:03 Lab Results 07/28/21 07/28/21 07/28/21 Range/Units 16:03 16:03 16:03 WBC 14.55 H (4.8-10.8) K/uL RBC 4.59 L (4.7-6.1) M/uL Hgb 12.5 L (14.0-18.0) g/dL Hct 39.6 L (42-52) % MCV 86.3 (80-100) fL MCH 27.2 (25-34) pg MCHC 31.6 L (32-36) g/dL RDW Std Deviation 55.5 H (36.4-46.3) fL RDW Coeff of Karlene 17.6 H (11.5-14.5) % Plt Count 253 (130-400) K/uL MPV 10.4 (7.4-10.4) fL Immature Gran % (Auto) 1.1 % Neut % (Auto) 76.1 % Lymph % (Auto) 9.6 % Leake % (Auto) 11.6 % Eos % (Auto) 1.4 % Baso % (Auto) 0.2 % Neut # (Auto) 11.07 H (1.4-6.5) K/uL Lymph # (Auto) 1.40 (1.2-3.4) K/uL Leake # (Auto) 1.69 H (0.11-0.59) K/uL Eos # (Auto) 0.20 (0-0.5) K/uL Baso # (Auto) 0.03 (0-0.2) K/uL Immature Gran # (Auto) 0.16 H (0.00-0.02) K/uL PT (9.0-12.0) Seconds INR (0.9-1.1) VBG pH 7.37 (7.36-7.41) VBG pCO2 57 H (38-50) mmHg VBG pO2 55 mmHg VBG HCO3 32 mmol/L VBG O2 Saturation 86.6 % VBG Base Excess 5.5 mEq/L Barometric Pressure 728.5 mm/Hg Sodium 134 L (136-145) mmol/L Potassium 4.2 (3.5-5.1) mmol/L Chloride 96 L (98-107) mmol/L Carbon Dioxide 31 (21-32) mmol/L Anion Gap 7.0 (3-11) BUN 23 H (7-18) mg/dl Creatinine 1.89 H (0.6-1.4) mg/dl Est Cr Clr Drug Dosing 65.8 ml/min Est GFR ( Amer) 44.0 ml/min Est GFR (Non-Af Amer) 38.0 ml/min BUN/Creatinine Ratio 12.4 (10-20) Glucose 100 H (70-99) mg/dl Calcium 9.5 (8.5-10.1) mg/dl Total Bilirubin 0.4 (0.2-1) mg/dl AST 26 (15-37) U/L ALT 47 (12-78) Alkaline Phosphatase 189 H (45-117) U/L Troponin I < 0.015 (0-0.045) ng/ml NT-Pro-B Natriuret Pep 585 (0-900) pg/ml Total Protein 7.8 (6.4-8.2) gm/dl Albumin 3.1 L (3.4-5.0) gm/dl Globulin 4.7 H (2.5-4.0) gm/dl Albumin/Globulin Ratio 0.7 L (0.9-2) Lipase 114 (73-393) U/L SARS-CoV-2, RNA, NAAT (NEGATIVE) 07/28/21 07/28/21 Range/Units 16:03 16:10 WBC (4.8-10.8) K/uL RBC (4.7-6.1) M/uL Hgb (14.0-18.0) g/dL Hct (42-52) % MCV (80-100) fL MCH (25-34) pg MCHC (32-36) g/dL RDW Std Deviation (36.4-46.3) fL RDW Coeff of Karlene (11.5-14.5) % Plt Count (130-400) K/uL MPV (7.4-10.4) fL Immature Gran % (Auto) % Neut % (Auto) % Lymph % (Auto) % Leake % (Auto) % Eos % (Auto) % Baso % (Auto) % Neut # (Auto) (1.4-6.5) K/uL Lymph # (Auto) (1.2-3.4) K/uL Leake # (Auto) (0.11-0.59) K/uL Eos # (Auto) (0-0.5) K/uL Baso # (Auto) (0-0.2) K/uL Immature Gran # (Auto) (0.00-0.02) K/uL PT 16.2 H (9.0-12.0) Seconds INR 1.7 H (0.9-1.1) VBG pH (7.36-7.41) VBG pCO2 (38-50) mmHg VBG pO2 mmHg VBG HCO3 mmol/L VBG O2 Saturation % VBG Base Excess mEq/L Barometric Pressure mm/Hg Sodium (136-145) mmol/L Potassium (3.5-5.1) mmol/L Chloride (98-107) mmol/L Carbon Dioxide (21-32) mmol/L Anion Gap (3-11) BUN (7-18) mg/dl Creatinine (0.6-1.4) mg/dl Est Cr Clr Drug Dosing ml/min Est GFR ( Amer) ml/min Est GFR (Non-Af Amer) ml/min BUN/Creatinine Ratio (10-20) Glucose (70-99) mg/dl Calcium (8.5-10.1) mg/dl Total Bilirubin (0.2-1) mg/dl AST (15-37) U/L ALT (12-78) Alkaline Phosphatase (45-117) U/L Troponin I (0-0.045) ng/ml NT-Pro-B Natriuret Pep (0-900) pg/ml Total Protein (6.4-8.2) gm/dl Albumin (3.4-5.0) gm/dl Globulin (2.5-4.0) gm/dl Albumin/Globulin Ratio (0.9-2) Lipase (73-393) U/L SARS-CoV-2, RNA, NAAT NEGATIVE (NEGATIVE) Imaging Data Radiologist's Impression: Chest X-Ray 07/28/21 15:32 XR chest 1V portable CLINICAL HISTORY: SOB TECHNIQUE: Single frontal radiograph of the chest was obtained. Comparison: Comparison is made to chest one view 06/24/2021 FINDINGS: No lines and tubes are seen. Cardiomegaly is noted. Calcified granuloma is seen in the right lung base. No evidence of pleural effusion or pneumothorax. IMPRESSION: Cardiomegaly without evidence of acute abnormality. ACT 112: Negative or not required by law. Electronically signed by: Corbin Chatman M.D. 07/28/2021 4:04 PM Discharge Plan Visit Data Chief Complaint: Shortness of Breath/Dyspnea Stated Complaint: SOB ED Provider: Álvaro Reyes Discharge Problem: Hypoxia Forms Stand Alone Forms: My [facility] Prescriptions Prescriptions: No Action gabapentin 600 mg Tablet 600 mg PO BID RF: 0 lamotrigine [Lamictal] 200 mg Tablet 200 mg PO BID RF: 0 isosorbide mononitrate 30 mg Tablet Extended Release 24 Hr 30 mg PO QAM RF: 0 topiramate [Topamax] 25 mg Tablet 25 mg PO BID RF: 0 nitroglycerin [Nitrostat] 0.4 mg Tablet, Sublingual 0.4 mg Sublingual DIRECTED PRN (Reason: Chest Pain) RF: 0 zolpidem [Ambien] 5 mg Tablet 5 mg PO HS PRN (Reason: Sleep) RF: 0 albuterol sulfate [ProAir HFA] 90 mcg/actuation Hfa Aerosol Inhaler 2 puff INHALATION QID PRN (Reason: Shortness Of Breath Or Wheezing) RF: 0 fluticasone propion-salmeterol [Advair Diskus] 250-50 mcg/dose Blister With Device 1 inh INHALATION BID RF: 0 albuterol sulfate 2.5 mg /3 mL (0.083 %) Solution For Nebulization 2.5 mg INHALATION Q6 PRN (Reason: Shortness Of Breath Or Wheezing) RF: 0 escitalopram oxalate [Lexapro] 10 mg tablet 10 mg PO DAILY RF: 0 aripiprazole [Abilify] 5 mg tablet 5 mg PO QAM RF: 0 rosuvastatin [Crestor] 40 mg tablet 40 mg PO DAILY RF: 0 metoprolol succinate 50 mg tablet extended release 24 hr 50 mg PO DAILY RF: 0 spironolactone 50 mg tablet 50 mg PO BID RF: 0 warfarin 5 mg tablet 5 mg PO QPM RF: 0 quetiapine [Seroquel] 200 mg tablet 200 mg PO HS RF: 0 cholecalciferol (vitamin D3) [Vitamin D3] 125 mcg (5,000 unit) Tablet 125 mcg PO QDD RF: 0 sucralfate 1 gram tablet 1 g PO DAILY RF: 0 tamsulosin 0.4 mg capsule 0.4 mg PO HS RF: 0 ezetimibe 10 mg tablet 10 mg PO DAILY RF: 0 torsemide 20 mg tablet 80 mg PO BID Qty: 240 RF: 1 metolazone 5 mg tablet 2.5 mg PO MOWEFR Qty: 6 RF: 0 potassium chloride 20 mEq tablet,ER particles/crystals 60 meq PO TID Qty: 300 RF: 0 Referrals Referrals: Jp Morillo MD [Primary Care Provider] -
--- NOTE | 2021-07-28 16:05 | XRay Report ---
XR chest 1V portable CLINICAL HISTORY: SOB TECHNIQUE: Single frontal radiograph of the chest was obtained. Comparison: Comparison is made to chest one view 06/24/2021 FINDINGS: No lines and tubes are seen. Cardiomegaly is noted. Calcified granuloma is seen in the right lung bas e. No evidence of pleural effusion or pneumothorax. IMPRESSION: Cardiomegaly without evidence of acute abnormality. ACT 112: Negative or not required by law. Electronically signed by: Corbin Chatman M.D. 07/28/2021 4:04 PM
[2021-07-28 16:14] LABS: Basophils # (auto) 0.03 K/uL (0-0.2); Basophils % (auto) 0.2 %; Eosinophils % (auto) 1.4 %; Hematocrit (blood only) 39.6 % (42-52); Hemoglobin 12.5 g/dL (14.0-18.0); Immature Granulocytes # (auto) 0.16 K/uL (0.00-0.02); Immature Granulocytes % (auto) 1.1 %; Lymphocytes % (auto) 9.6 %; Mean Corpuscular Hemoglobin 27.2 pg (25-34); Mean Corpuscular Hgb Conc 31.6 g/dL (32-36); Mean Corpuscular Volume 86.3 fL (80-100); Mean Platelet Volume 10.4 fL (7.4-10.4); Monocytes # (auto) 1.69 K/uL (0.11-0.59); Monocytes % (auto) 11.6 %; Neutrophils # (auto) 11.07 K/uL (1.4-6.5); Neutrophils % (auto) 76.1 %; Platelet Count 253 K/uL (130-400); RDW Coefficient of Variation 17.6 % (11.5-14.5); RDW Standard Deviation 55.5 fL (36.4-46.3); Red Blood Count 4.59 M/uL (4.7-6.1); White Blood Count 14.55 K/uL (4.8-10.8)
[2021-07-28 16:19] LABS: Base Excess VBG 5.5 mEq/L; Oxygen Saturation VBG 86.6 %; pH VBG 7.37 (7.36-7.41)
[2021-07-28 16:23] LABS: INR 1.7 (0.9-1.1); Prothrombin Time 16.2 Seconds (9.0-12.0)
[2021-07-28 16:33] LABS: Albumin Level 3.1 gm/dl (3.4-5.0); BUN Creatinine Ratio 12.4 (10-20); Blood Urea Nitrogen 23 mg/dl (7-18); Calcium 9.5 mg/dl (8.5-10.1); Carbon Dioxide 31 mmol/L (21-32); Chloride 96 mmol/L (98-107); Creatinine Clr Calc Pharmacy 65.8 ml/min; Glucose 100 mg/dl (70-99); Lipase 114 U/L (73-393); Potassium 4.2 mmol/L (3.5-5.1); Sodium 134 mmol/L (136-145)
[2021-07-28 16:45] LABS: Alanine Aminotransferase 47 (12-78); Albumin Globulin Ratio 0.7 (0.9-2); Alkaline Phosphatase 189 U/L (45-117); Aspartate Aminotransferase 26 U/L (15-37); Bilirubin,Total 0.4 mg/dl (0.2-1); Globulin 4.7 gm/dl (2.5-4.0); NT Pro B Type Natriuretic Pept 585 pg/ml (0-900); Total Protein 7.8 gm/dl (6.4-8.2); Troponin I < 0.015 ng/ml (0-0.045)
[2021-07-28] MEDS: FUROSEMIDE 40 MG/4 ML VIAL IV ONE ×2 (17:31→18:24)
--- NOTE | 2021-07-28 17:52 | History & Physical Report ---
Date of Service July 28, 2021 Assessment & Plan (1) Decompensated heart failure: Plan: Decompensated right-sided heart failure Cor pulmonale CXR showed:Cardiomegaly without evidence of acute abnormality. Last ECHO: Moderate concentric LVH. EF 55 to 60%. Abnormal wall motion consistent with pacemaker activation. Hold PO diuretics Start IV Lasix 80mg BID Also on metolazone, spironolactone Daily weight, I/Os, fluid restriction Low sodium diet Oxygen support PRN Monitor renal function/electrolytes Cardiology consulted COVID 19 Pneumonia Acute respiratory failure with hypoxia CTA showed Bibasilar consolidative opacities are suggestive of pneumonia versus aspiration pneumonitis. Bronchial wall thickening suggestive of bronchitis. Prior granulomatous disease. Empirically started on doxycycline, Rocephin Started on Decadron Likely may not benefit from remdesivir given onset of symptoms. Continue Nebs Check procalcitonin, CRP Encouraged to prone Diuretics as above Isolation precautions On Coumadin for anticoagulation Subtherapeutic INR Continue Coumadin SQ heparin till INR is therapeutic Monitor INR Chronic A. fib Sick sinus syndrome Single-chamber pacemaker Continue metoprolol Continue warfarin Hyponatremia Hypokalemia secondary to diuretics Monitor H/O CAD S/P CABG Denies chest pain Continue Aspirin, Statin, Isosorbide, Metoprolol CKD III Creatinine at baseline Avoid nephrotoxic agents as able Monitor renal function while on IV diuretics OSCAR On CPAP at bedtime Morbid obesity BMI 67 Hyperlipidemia On statin DVT Px: Coumadin Heparin SQ until INR is therapeutic Code Status Full Code Disposition PT/OT prior to discharge History of Present Illness Chief Complaint: Shortness of Breath, Weight Gain Primary Care Provider: Jp Morillo MD Patient is a 60-year-old male with history of chronic right-sided heart failure, obstructive sleep apnea on BiPAP, COPD, coronary artery disease S/P CABG, sick sinus syndrome S/P PPM, hypertension, hyperlipidemia, CKD stage III, GERD, chronic atrial fibrillation on anticoagulation with Coumadin, morbid obesity chronic low back pain and other medical problems presents with history of worsening shortness of breath, leg edema and weight gain since about 2 weeks duration. He states that his dyspnea is chronic for the last few months but gradually worsening since especially last 10 days. He was evaluated by home health nurse today and was found to be hypoxic at 86% on room air and was suggested to visit ED for further evaluation. Admits to using his home nebulizers more frequently lately. He reports that he gained about 20 to 30 pounds in last 2 weeks. He states having dry cough since last few days. He is vaccinated against Covid 19 x 3. Denies any history of chest pain, palpitations, dizziness, hemoptysis, fever, chills, headache, change in vision, nausea, vomiting, abdominal pain, diarrhea, dysuria, hematuria, recent change in medications. He admits to taking his med home medications regularly. He uses CPAP at bedtime. Allergies Allergy/AdvReac Type Severity Reaction Status Date / Time morphine AdvReac Mild nausea and Verified 07/28/21 16:17 vomiting Home Medications Medication Instructions Recorded Confirmed Type albuterol sulfate 90 mcg/actuation 2 puff INHALATION QID PRN 05/04/18 07/28/21 History aerosol inhaler (ProAir HFA) gabapentin 600 mg tablet 600 mg PO BID 05/04/18 07/28/21 History isosorbide mononitrate 30 mg 30 mg PO QAM 05/04/18 07/28/21 History tablet,extended release 24 hr lamotrigine 200 mg tablet 200 mg PO BID 05/04/18 07/28/21 History (Lamictal) nitroglycerin 0.4 mg sublingual 0.4 mg SUBLINGUAL DIRECTED PRN 05/04/18 07/28/21 History tablet (Nitrostat) topiramate 25 mg tablet (Topamax) 25 mg PO BID 05/04/18 07/28/21 History zolpidem 5 mg tablet (Ambien) 5 mg PO HS PRN 05/04/18 07/28/21 History albuterol sulfate 2.5 mg INHALATION Q6 PRN 03/03/20 07/28/21 History aripiprazole 5 mg tablet (Abilify) 5 mg PO QAM 03/03/20 07/28/21 History escitalopram oxalate 10 mg tablet 10 mg PO DAILY 03/03/20 07/28/21 History (Lexapro) fluticasone 250 mcg-salmeterol 50 1 inh INHALATION BID 03/03/20 07/28/21 History mcg/dose blistr powdr for inhalation (Advair Diskus) rosuvastatin 40 mg tablet (Crestor) 40 mg PO DAILY 03/03/20 07/28/21 History metoprolol succinate 50 mg 50 mg PO DAILY 02/05/21 07/28/21 History tablet,extended release 24 hr quetiapine 200 mg tablet (Seroquel) 200 mg PO HS 02/05/21 07/28/21 History spironolactone 50 mg tablet 50 mg PO BID 02/05/21 07/28/21 History warfarin 5 mg tablet 5 mg PO UD 02/05/21 07/28/21 History ezetimibe 10 mg tablet 10 mg PO DAILY 06/24/21 07/28/21 History sucralfate 1 gram tablet 1 g PO DAILY 06/24/21 07/28/21 History tamsulosin 0.4 mg capsule 0.4 mg PO HS 06/24/21 07/28/21 History metolazone 5 mg tablet 2.5 mg PO MOWEFR #6 tab 07/05/21 07/28/21 Rx potassium chloride 20 mEq 60 meq PO TID #300 tab 07/05/21 07/28/21 Rx tablet,extended release(part/cryst) torsemide 20 mg tablet 80 mg PO BID #240 tab 07/05/21 07/28/21 Rx cholecalciferol (vitamin D3) 125 125 mcg PO QDD 07/28/21 07/28/21 History mcg (5,000 unit) tablet (Vitamin D3) Past Med/Surg History Medical History CAD (coronary artery disease) CAD (coronary artery disease) Chronic atrial fibrillation Chronic back pain CKD (chronic kidney disease) stage 3, GFR 30-59 ml/min Cor pulmonale Depression HTN (hypertension) Hyperlipidemia Hypertension Obesities, morbid OSCAR (obstructive sleep apnea) Volume overload Surgical History S/P CABG x 4 Social History Smoking Status: Never smoker Second Hand Exposure: No; Hx Alcohol Use: No Hx Substance Use: No Preferred Language: Kyrgyz Communication Ability: Effective Hearing Ability: 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 Beliefs That Will Affect Care: None marital status: Single Current Living Situation: Alone Current Living Situation Comment: fist floor appartment Feels Safe at Home: Yes Assistive Devices: None Review of Systems Review of Systems: All systems reviewed & are unremarkable except as noted in Subjective Physical Exam Physical Exam: Physical Exam: Vitals signs as noted above General Appearance:Morbidly Obese, no apparent distress Head: normocephalic, Atraumatic Eyes: normal inspection, EOMI Neck: supple, Trachea midline Respiratory/Chest: Decreased breath sounds, B/L wheezing, No accessory muscle use Cardiovascular: S1, S2, No murmur Abdomen/GI:Soft, Non tender, Distended, Bowel sounds present Extremities/Musculoskeletal:normal inspection, 3+ B/L LE edema Neurologic/Psych:AAOX3, grossly no focal neurological deficits Skin: normal color, warm Results & Data Results & Data ([facility]) Vital Signs (Past 12 Hours) Vital Signs Temp Pulse Pulse Resp BP BP Pulse Ox 07/28/21 16:58 91 H 19 113/68 89 L 07/28/21 15:33 37.3 C 95 H 17 105/79 95 Laboratory Results Short CBC 07/28/21 Range/Units 16:03 WBC 14.55 H (4.8-10.8) K/uL Hgb 12.5 L (14.0-18.0) g/dL Hct 39.6 L (42-52) % Plt Count 253 (130-400) K/uL BMP 07/28/21 16:03 Sodium 134 L Potassium 4.2 Chloride 96 L Carbon Dioxide 31 BUN 23 H Creatinine 1.89 H Glucose 100 H Calcium 9.5 Cardiac Enzymes 07/28/21 Range/Units 16:03 Troponin I < 0.015 (0-0.045) ng/ml Liver Function 07/28/21 Range/Units 16:03 Total Bilirubin 0.4 (0.2-1) mg/dl AST 26 (15-37) U/L ALT 47 (12-78) Alkaline Phosphatase 189 H (45-117) U/L Albumin 3.1 L (3.4-5.0) gm/dl Diagnostic Findings CTA: 1. Cardiomegaly without pulmonary emboli. 2. Bibasilar consolidative opacities are suggestive of pneumonia versus aspiration pneumonitis. 3. Bronchial wall thickening suggestive of bronchitis. 4. Prior granulomatous disease. ECG Additional Comments: EKG: Atrial fibrillation, nonspecific ST-T wave changes, QTC 450.
[2021-07-28] MEDS ORDERED: OPTIRAY 320 125ml IV ONE (18:03)
--- NOTE | 2021-07-28 18:35 | CT Scan Report ---
CT angio chest PE protocol CT DOSE: 1039.04 mGy.cm HISTORY: 60 years-old Male with PE. Acute shortness of breath with cough TECHNIQUE: Multiple CTA images of the chest were obtained after the intravenous administration of 120 ml Optiray. Coronal and sagittal MIPS were obtained from the axial data set and were submitted for review. All measurements were obtained according to NASCET criteria. A dose lowering technique was u tilized adhering to the principles of ALARA. COMPARISON: Chest CT 06/25/2021 FINDINGS: No thyroid nodule. Left subclavian pacer. Marked cardiomegaly with prior median sternotomy and CABG. Extensive [place] coronary artery calcifications. Mediastinal lipomatosis with prominence of the peric ardial fat. Lipomatous hypertrophy of the interatrial septum. No pericardial effusion. Atherosclerosi s of the thoracic aorta without aneurysm. No pulmonary emboli are identified. No adenopathy. Calcifie d right hilar lymph nodes redemonstrated. No pneumothorax, pleural effusion, or overt pulmonary edema. Calcified granulomata of the right lower lobe. Bronchial wall thickening. Bibasilar consolidative opacities with left basilar predominant edwar undglass nodular foci. Bilateral bronchial wall thickening. Suggested tracheobronchomalacia. The no a cute process of the imaged upper abdomen. Calcified granulomata of the spleen. Probable cyst of the l eft kidney. Patient body habitus limits the study. Imaged soft tissues are unremarkable with gynecoma stia. No acute fracture. Degenerative changes of the shoulders and spine. Mild superior endplate comp ression involving several thoracic segment appears chronic. IMPRESSION: 1. Cardiomegaly without pulmonary emboli. 2. Bibasilar consolidative opacities are suggestive of pneumonia versus aspiration pneumonitis. 3. Bronchial wall thickening suggestive of bronchitis. 4. Prior granulomatous disease. 5. Chronic findings as above. ACT 112: Negative or not required by law. The above report was generated using voice recognition software. It may contain grammatical, syntax o r spelling errors. Electronically signed by: Darell Bland M.D. 07/28/2021 6:33 PM
[2021-07-28] MEDS ORDERED: cefTRIAXone SODIUM 1,000 MG/50 ML BAG IV STA (18:42)
[2021-07-28] MEDS ORDERED: AZITHROMYCIN 500 MG in DEXTROSE 5% 250 ML IV ONE (18:42)
[2021-07-28] MEDS ORDERED: DOXYCYCLINE HYCLATE 100 MG CAP PO ONE (19:39)
[2021-07-28 19:51] LABS: Influenza A virus by PCR Negative (Neg); Influenza B virus by PCR Negative (Neg); RSV by PCR Negative (Neg)
[2021-07-28 19:54] LABS: SARS CoV2 RNA(COVID-19) InHosp POSITIVE (Negative)
[2021-07-28] MEDS ORDERED: ONDANSETRON INJ 2 MG/ML 2 ML VIAL IV PRN (22:15)
[2021-07-28] MEDS ORDERED: FUROSEMIDE 40 MG/4 ML VIAL IV ONE (22:15)
[2021-07-28] MEDS ORDERED: NITROGLYCERIN SL 0.4 MG/TAB TAB SL PRN (22:15)
[2021-07-28] MEDS ORDERED: POLYETHYLENE (MIRALAX) 17 GM PACK PO PRN (22:15)
[2021-07-28] MEDS ORDERED: ACETAMINOPHEN 325 MG TAB PO PRN (22:15)
[2021-07-29] MEDS: HEPARIN SOD 5,000 UNIT/0.5 ML VIAL SQ SCH ×2 (00:37→06:00)
[2021-07-29] MEDS: GABAPENTIN 600 MG TAB PO SCH ×3 (00:39→22:57)
[2021-07-29] MEDS: POTASSIUM CHLORIDE CRTAB 20 MEQ TABCR PO SCH ×4 (00:39→22:58)
[2021-07-29] MEDS: WARFARIN SOD 7.5 MG TAB PO SCH ×2 (00:40→18:00)
[2021-07-29] MEDS: lamoTRIgine 100 MG TAB PO SCH ×3 (00:40→22:58)
[2021-07-29] MEDS: QUEtiapine FUMARATE 200 MG TAB PO SCH ×2 (00:40→22:59)
[2021-07-29] MEDS: SPIRONOLACTONE 25 MG TAB PO SCH ×3 (00:40→22:59)
[2021-07-29] MEDS: TAMSULOSIN HCL 0.4 MG CAP PO SCH ×2 (00:40→23:00)
[2021-07-29] MEDS: dexAMETHasone 6 MG in SYRINGE 0 ML IV SCH ×2 (00:40→09:03)
[2021-07-29] MEDS: TOPIRAMATE 25 MG TAB PO SCH ×3 (00:47→23:00)
[2021-07-29] MEDS ORDERED: FUROSEMIDE 40 MG/4 ML VIAL IV ONE (01:57)
[2021-07-29] MEDS: ALBUT/IPRATROP 3MG/0.5MG NEB 3 ML VIAL NEB SCH ×2 (07:12→11:12)
[2021-07-29 08:17] LABS: INR 1.6 (0.9-1.1); Prothrombin Time 15.3 Seconds (9.0-12.0)
[2021-07-29 08:20] LABS: Hematocrit (blood only) 38.9 % (42-52); Hemoglobin 12.5 g/dL (14.0-18.0); Mean Corpuscular Hemoglobin 27.1 pg (25-34); Mean Corpuscular Hgb Conc 32.1 g/dL (32-36); Mean Corpuscular Volume 84.2 fL (80-100); Platelet Count 234 K/uL (130-400); Red Blood Count 4.62 M/uL (4.7-6.1); White Blood Count 11.37 K/uL (4.8-10.8)
[2021-07-29] MEDS: FLUTICASONE/VILANTEROL 200/25MCG 14 PUFFS/INHALER INH SCH (08:39)
[2021-07-29] MEDS: FUROSEMIDE 40 MG/4 ML VIAL IV SCH ×2 (08:39→22:57)
[2021-07-29] MEDS: EZETIMIBE 10 MG TABLET PO SCH (08:45)
[2021-07-29] MEDS: ROSUVASTATIN CALCIUM 20 MG TAB PO SCH (08:45)
[2021-07-29] MEDS: ARIPiprazole 5 MG TAB PO SCH (08:46)
[2021-07-29] MEDS: DOXYCYCLINE HYCLATE 100 MG CAP PO SCH ×2 (08:46→22:57)
[2021-07-29] MEDS: METOPROLOL SUCC 50MG EXT REL TAB PO SCH (08:47)
[2021-07-29] MEDS: ESCITALOPRAM OXALATE 10 MG TAB PO SCH (08:48)
[2021-07-29] MEDS: ISOSORBIDE MONO EXTENDED REL 30 MG TABCR PO SCH (08:50)
[2021-07-29] MEDS ORDERED: Heparin IV Adult Wt-Based Low-Dose *NO* Bolus Protocol IV SCH (09:00)
--- NOTE | 2021-07-29 09:01 | Cardiology Consultation ---
Date of Consultation July 29, 2021 Assessment & Plan (1) Hypoxia: (2) Nonadherence to medication: (3) Dietary noncompliance: (4) Chest pain: (5) SOB (shortness of breath): (6) SSS (sick sinus syndrome): (7) CKD (chronic kidney disease): (8) Morbid obesity: (9) Right-sided congestive heart failure: (10) Lower extremity edema: (11) Chronic atrial fibrillation: (12) CAD (coronary artery disease): (13) OSCAR (obstructive sleep apnea): (14) Chronic back pain: (15) Cor pulmonale: (16) COVID: The patient presents with recurrent volume overload due to recurrent dietary noncompliance and likely medication noncompliance as well. Once again the pathophysiology and treatment were reviewed with the patient Once again, patient counseled great lengths on the need for adherence to medications as well as fluid and sodium intake restriction. Patient states that he understands but cannot comply Continue to diurese with previous regimen as it was successful on last admission Strict I/O's Fluid restriction Daily weights Heparin drip as a bridge with a goal INR of 2 to 3. Pt now positive for covid, will defer treatment to the primary team History of Present Illness Reason for Consultation: volume overload Requesting Physician: Luis Attending Physician: Maryann Montanez MD History of Present Illness 60 yo male presented to [facility] ED on 06/24/21 at the direction MISAEL Castaneda with weight gain along with worsening sob and abdominal distention. Labs checked and found to have worsening renal function as well. As noted on multiple previous hospitalizations, he admits to not complying with dietary restrictions. This has significantly worsened as of late with the patient noting that his previous caregiver, his sister, has moved out of the area. He is also covid positive. This is the patient's 4th admission over the last 6 months for similar symptoms despite close outpatient cardiac follow up and home care. Past medical history: 1. Premature atherosclerotic coronary disease status post coronary artery bypass grafting x4 in 2001 at age 43. 2. Permanent atrial fibrillation on chronic anticoagulation. 3. 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 Obstructive sleep apnea on BiPAP, supplementation with past oxygen use as well nocturnally- noncompliance 5. Morbid obesity. 6. Hyperlipidemia. 7. Hypertension. 8. Cor pulmonale with chronic class 3 right heart failure and edema 9. Known Medication and dietary noncompliance Allergies Allergy/AdvReac Type Severity Reaction Status Date / Time morphine AdvReac Mild nausea and Verified 07/28/21 16:17 vomiting Home Medications Medication Instructions Recorded Confirmed Type albuterol sulfate 90 mcg/actuation 2 puff INHALATION QID PRN 05/04/18 07/28/21 History aerosol inhaler (ProAir HFA) gabapentin 600 mg tablet 600 mg PO BID 05/04/18 07/28/21 History isosorbide mononitrate 30 mg 30 mg PO QAM 05/04/18 07/28/21 History tablet,extended release 24 hr lamotrigine 200 mg tablet 200 mg PO BID 05/04/18 07/28/21 History (Lamictal) nitroglycerin 0.4 mg sublingual 0.4 mg SUBLINGUAL DIRECTED PRN 05/04/18 07/28/21 History tablet (Nitrostat) topiramate 25 mg tablet (Topamax) 25 mg PO BID 05/04/18 07/28/21 History zolpidem 5 mg tablet (Ambien) 5 mg PO HS PRN 05/04/18 07/28/21 History albuterol sulfate 2.5 mg INHALATION Q6 PRN 03/03/20 07/28/21 History aripiprazole 5 mg tablet (Abilify) 5 mg PO QAM 03/03/20 07/28/21 History escitalopram oxalate 10 mg tablet 10 mg PO DAILY 03/03/20 07/28/21 History (Lexapro) fluticasone 250 mcg-salmeterol 50 1 inh INHALATION BID 03/03/20 07/28/21 History mcg/dose blistr powdr for inhalation (Advair Diskus) rosuvastatin 40 mg tablet (Crestor) 40 mg PO DAILY 03/03/20 07/28/21 History metoprolol succinate 50 mg 50 mg PO DAILY 02/05/21 07/28/21 History tablet,extended release 24 hr quetiapine 200 mg tablet (Seroquel) 200 mg PO HS 02/05/21 07/28/21 History spironolactone 50 mg tablet 50 mg PO BID 02/05/21 07/28/21 History warfarin 5 mg tablet 5 mg PO UD 02/05/21 07/28/21 History ezetimibe 10 mg tablet 10 mg PO DAILY 06/24/21 07/28/21 History sucralfate 1 gram tablet 1 g PO DAILY 06/24/21 07/28/21 History tamsulosin 0.4 mg capsule 0.4 mg PO HS 06/24/21 07/28/21 History metolazone 5 mg tablet 2.5 mg PO MOWEFR #6 tab 07/05/21 07/28/21 Rx potassium chloride 20 mEq 60 meq PO TID #300 tab 07/05/21 07/28/21 Rx tablet,extended release(part/cryst) torsemide 20 mg tablet 80 mg PO BID #240 tab 07/05/21 07/28/21 Rx cholecalciferol (vitamin D3) 125 125 mcg PO QDD 07/28/21 07/28/21 History mcg (5,000 unit) tablet (Vitamin D3) Patient History Medical History CAD (coronary artery disease) CAD (coronary artery disease) Chronic atrial fibrillation Chronic back pain CKD (chronic kidney disease) stage 3, GFR 30-59 ml/min Cor pulmonale Depression HTN (hypertension) Hyperlipidemia Hypertension Obesities, morbid OSCAR (obstructive sleep apnea) Volume overload Surgical History S/P CABG x 4 Social History Smoking Status: Never smoker Second Hand Exposure: No; Hx Alcohol Use: No Hx Substance Use: No Preferred Language: [place] Communication Ability: Effective Hearing Ability: Normal Project Control Manager Required: No Beliefs That Will Affect Care: None marital status: Single Current Living Situation: Alone Current Living Situation Comment: fist floor appartment Feels Safe at Home: Yes Safety Concerns: Feels Safe At This Time Assistive Devices: None Review of Systems Review of Systems: All systems reviewed & are unremarkable except as noted in HPI & below Results & Data ([facility]) Vital Signs (Past 12 Hours) Vital Signs Pulse Pulse Resp BP Pulse Ox Pulse Ox 07/29/21 07:44 81 23 151/78 H 91 07/29/21 07:12 85 18 90 07/29/21 05:09 82 20 127/85 98 07/29/21 03:50 97 H 22 96 07/29/21 02:05 75 18 102/88 96 07/28/21 23:20 78 24 95 07/28/21 22:15 77 18 134/67 95 95 (1) CKD (chronic kidney disease) Chronic kidney disease stage: unspecified stage Qualified Code(s): N18.9 - Chronic kidney disease, unspecified (2) Chest pain Chest pain type: unspecified Qualified Code(s): R07.9 - Chest pain, unspecified
[2021-07-29 09:02] LABS: Albumin Level 3.1 gm/dl (3.4-5.0); BUN Creatinine Ratio 13.8 (10-20); Calcium 9.7 mg/dl (8.5-10.1); Est GFR (African American) 40.1 ml/min; Est GFR (Non-African American) 34.6 ml/min; Magnesium 2.3 mg/dl (1.8-2.4)
[2021-07-29] MEDS: cefTRIAXone SODIUM 2,000 MG in DEXTROSE 5% 50 ML IV SCH (09:03)
[2021-07-29 09:04] LABS: Albumin Globulin Ratio 0.7 (0.9-2); Bilirubin,Total 0.5 mg/dl (0.2-1); Globulin 4.6 gm/dl (2.5-4.0); Total Protein 7.7 gm/dl (6.4-8.2)
[2021-07-29 10:29] LABS: Partial Thromboplastin Ratio 1.5; Partial Thromboplastin Time 39.8 Seconds (21.0-31.0)
[2021-07-29] MEDS ORDERED: HEPARIN 25000 UNIT/500 ML D5W IV ONE (10:33)
[2021-07-29] MEDS: HEPARIN SODIUM/DEXTROSE 25,000 UNITS/500 ML BAG IV SCH (10:49)
[2021-07-29] MEDS: SUCRALFATE 1 GM TAB PO SCH (12:03)
--- NOTE | 2021-07-29 15:26 | Hospitalist Progress Note ---
Date of Service July 29, 2021 Assessment & Plan (1) Decompensated heart failure: Plan: Decompensated right-sided heart failure Cor pulmonale CXR showed:Cardiomegaly without evidence of acute abnormality. Last ECHO: Moderate concentric LVH. EF 55 to 60%. Abnormal wall motion consistent with pacemaker activation. Hold PO diuretics Continue IV Lasix Also on metolazone, spironolactone Daily weight, I/Os, fluid restriction Low sodium diet Oxygen support PRN Monitor renal function/electrolytes Cardiology recommendations noted COVID 19 Pneumonia Acute respiratory failure with hypoxia CTA showed Bibasilar consolidative opacities are suggestive of pneumonia versus aspiration pneumonitis. Bronchial wall thickening suggestive of bronchitis. Prior granulomatous disease. Empirically started on doxycycline, Rocephin Contiue dexamethasone Likely may not benefit from remdesivir given onset of symptoms. Continue Nebs Procal is 0.46. Check procalcitonin in AM. If not increasing, dc antibiotics Encouraged to prone Diuretics as above Isolation precautions On Coumadin for anticoagulation Chronic A. fib Sick sinus syndrome Single-chamber pacemaker Subtherapeutic INR Continue Coumadin Heparin drip started as bridge to coumadin Monitor INR Continue metoprolol Hyponatremia Hypokalemia secondary to diuretics K is 4 today Monitor H/O CAD S/P CABG Denies chest pain Continue Aspirin, Statin, Isosorbide, Metoprolol CKD III Creatinine at baseline Avoid nephrotoxic agents as able Monitor renal function while on IV diuretics OSCAR On CPAP at bedtime Morbid obesity BMI 67 Hyperlipidemia On statin DVT Px: Coumadin Heparin SQ until INR is therapeutic Code Status Full Code Disposition PT/OT prior to discharge Admission and Anticipated Discharge Date Admission Date: July 28, 2021 Subjective Patient seen and examined. Reports cough and shortness of breath. Currently on 2 L/min nasal oxygen Denies chest pain, nausea, vomiting Denies palpitations Denies abdominal pain, diarrhea, anorexia Has leg swelling. Reports taking meds at home Physical Exam Constitutional: + well hydrated and + morbidly obese; no acute distress Eyes: PERRL, conjunctivae normal, anicteric sclerae ENMT: external ear and nose normal, oropharynx normal Respiratory: On 2 L/min nasal cannula, diminished breath sounds Cardiovascular: Irregular regular, S1-S2, bilateral leg edema Gastrointestinal (Abdomen): normal bowel sounds, soft, nontender, no hepatosplenomegaly Musculoskeletal: Leg edema Neurologic: PERRL, EOMI, accommodation nl, no face palsy, no dysarthria Psychiatric: A+Ox3, euthymic affect Results & Data Results & [facility] ([facility]) Vital Signs (Past 12 Hours) Vital Signs Pulse Pulse Resp BP Pulse Ox 07/29/21 12:14 87 07/29/21 12:12 94 07/29/21 12:07 88 L 07/29/21 12:01 89 21 122/81 93 07/29/21 07:44 81 23 151/78 H 91 07/29/21 07:12 85 18 90 07/29/21 05:09 82 20 127/85 98 07/29/21 03:50 97 H 22 96 Laboratory Results Abnormal lab results 07/28/21 07/28/21 07/29/21 Range/Units 16:03 18:56 07:53 WBC 11.37 H (4.8-10.8) K/uL RBC 4.62 L (4.7-6.1) M/uL Hgb 12.5 L (14.0-18.0) g/dL Hct 38.9 L (42-52) % PT (9.0-12.0) Seconds INR (0.9-1.1) APTT (21.0-31.0) Seconds Sodium (136-145) mmol/L Chloride (98-107) mmol/L BUN (7-18) mg/dl Creatinine (0.6-1.4) mg/dl Glucose (70-99) mg/dl Alkaline Phosphatase (45-117) U/L C-Reactive Protein 7.77 H (0-0.29) mg/dl Albumin (3.4-5.0) gm/dl Globulin (2.5-4.0) gm/dl Albumin/Globulin Ratio (0.9-2) SARS-CoV-2 (PCR) POSITIVE A* (Negative) 07/29/21 07/29/21 07/29/21 Range/Units 07:53 07:53 17:04 WBC (4.8-10.8) K/uL RBC (4.7-6.1) M/uL Hgb (14.0-18.0) g/dL Hct (42-52) % PT 15.3 H (9.0-12.0) Seconds INR 1.6 H (0.9-1.1) APTT 39.8 H 47.8 H* (21.0-31.0) Seconds Sodium 131 L (136-145) mmol/L Chloride 93 L (98-107) mmol/L BUN 28 H (7-18) mg/dl Creatinine 2.04 H (0.6-1.4) mg/dl Glucose 118 H (70-99) mg/dl Alkaline Phosphatase 188 H (45-117) U/L C-Reactive Protein (0-0.29) mg/dl Albumin 3.1 L (3.4-5.0) gm/dl Globulin 4.6 H (2.5-4.0) gm/dl Albumin/Globulin Ratio 0.7 L (0.9-2) SARS-CoV-2 (PCR) (Negative)
[2021-07-29 17:31] LABS: Partial Thromboplastin Ratio 1.8
[2021-07-29 17:38] LABS: Partial Thromboplastin Time 47.8 Seconds (21.0-31.0)
[2021-07-29] MEDS: LIDOCAINE 5% 1 PATCH TD SCH (18:14)
[2021-07-29 20:08] LABS: Partial Thromboplastin Ratio 1.6; Partial Thromboplastin Time 42.9 Seconds (21.0-31.0)
[2021-07-29] MEDS: ZOLPIDEM TARTRATE 5 MG TAB PO PRN (23:14)
--- NOTE | 2021-07-30 07:06 | Electrocardiogram Report ---
Test Reason : Blood Pressure : / mmHG Vent. Rate : 089 BPM Atrial Rate : 084 BPM P-R Int : 000 ms QRS Dur : 086 ms QT Int : 370 ms P-R-T Axes : 000 082 126 degrees QTc Int : 450 ms Atrial fibrillation Nonspecific ST and T wave abnormality Abnormal ECG When compared with ECG of 25-JUN-2021 05:36, previous ECG was mostly V-paced Confirmed by Black Rinaldi ([id number]) on 07/30/2021 7:05:56 AM Referred By: Confirmed By:Black Rinaldi
[2021-07-30 07:33] LABS: INR 2.1 (0.9-1.1); Partial Thromboplastin Ratio 1.8; Prothrombin Time 19.8 Seconds (9.0-12.0)
[2021-07-30 07:43] LABS: Partial Thromboplastin Time 46.5 Seconds (21.0-31.0)
[2021-07-30 07:46] LABS: C Reactive Protein 5.14 mg/dl (0-0.29); Calcium 9.7 mg/dl (8.5-10.1); Creatinine Clr Calc Pharmacy 57.3 ml/min; Est GFR (African American) 37.3 ml/min; Est GFR (Non-African American) 32.1 ml/min; Potassium 3.3 mmol/L (3.5-5.1)
--- NOTE | 2021-07-30 08:31 | Electrocardiogram Report ---
Test Reason : Blood Pressure : / mmHG Vent. Rate : 087 BPM Atrial Rate : 097 BPM P-R Int : 000 ms QRS Dur : 104 ms QT Int : 354 ms P-R-T Axes : 000 083 202 degrees QTc Int : 425 ms Atrial fibrillation Nonspecific ST and T wave abnormality Abnormal ECG When compared with ECG of 28-JUL-2021 15:48, No significant change was found Confirmed by Black Rinaldi ([id number]) on 07/30/2021 8:30:55 AM Referred By: REFERRED SELF Confirmed By:Black Rinaldi
[2021-07-30] MEDS: cefTRIAXone SODIUM 2,000 MG in DEXTROSE 5% 50 ML IV SCH (09:31)
[2021-07-30] MEDS: dexAMETHasone 6 MG in SYRINGE 0 ML IV SCH (09:32)
[2021-07-30] MEDS: ARIPiprazole 5 MG TAB PO SCH (09:34)
[2021-07-30] MEDS: EZETIMIBE 10 MG TABLET PO SCH (09:35)
[2021-07-30] MEDS: ESCITALOPRAM OXALATE 10 MG TAB PO SCH (09:35)
[2021-07-30] MEDS: DOXYCYCLINE HYCLATE 100 MG CAP PO SCH (09:35)
[2021-07-30] MEDS: FLUTICASONE/VILANTEROL 200/25MCG 14 PUFFS/INHALER INH SCH (09:36)
[2021-07-30] MEDS: GABAPENTIN 600 MG TAB PO SCH ×2 (09:36→19:43)
[2021-07-30] MEDS: FUROSEMIDE 40 MG/4 ML VIAL IV SCH ×2 (09:36→19:14)
[2021-07-30] MEDS: LIDOCAINE 5% 1 PATCH TD SCH (09:37)
[2021-07-30] MEDS: ISOSORBIDE MONO EXTENDED REL 30 MG TABCR PO SCH (09:37)
[2021-07-30] MEDS: lamoTRIgine 100 MG TAB PO SCH ×2 (09:37→20:08)
[2021-07-30] MEDS: METOPROLOL SUCC 50MG EXT REL TAB PO SCH (09:38)
[2021-07-30] MEDS: POTASSIUM CHLORIDE CRTAB 20 MEQ TABCR PO SCH ×3 (09:38→20:09)
[2021-07-30] MEDS: SPIRONOLACTONE 25 MG TAB PO SCH ×2 (09:39→20:09)
[2021-07-30] MEDS: TOPIRAMATE 25 MG TAB PO SCH ×2 (09:40→20:09)
[2021-07-30] MEDS: ROSUVASTATIN CALCIUM 20 MG TAB PO SCH (10:03)
--- NOTE | 2021-07-30 10:29 | Electrocardiogram Report ---
Test Reason : Blood Pressure : / mmHG Vent. Rate : 073 BPM Atrial Rate : 375 BPM P-R Int : 000 ms QRS Dur : 108 ms QT Int : 404 ms P-R-T Axes : 000 074 182 degrees QTc Int : 445 ms Atrial fibrillation with occasional ventricular-paced complexes Abnormal ECG When compared with ECG of 29-JUL-2021 12:10, (unconfirmed) Electronic ventricular pacemaker has replaced Atrial fibrillation Confirmed by Panda Ruiz ([id number]) on 07/30/2021 10:29:13 AM Referred By: REFERRED SELF Confirmed By:Panda Ruiz
--- NOTE | 2021-07-30 10:50 | Cardiology Progress Note ---
Date of Service July 30, 2021 Assessment & Plan (1) Hypoxia: (2) Nonadherence to medication: (3) Dietary noncompliance: (4) Chest pain: (5) SOB (shortness of breath): (6) SSS (sick sinus syndrome): (7) CKD (chronic kidney disease): (8) Morbid obesity: (9) Right-sided congestive heart failure: (10) Lower extremity edema: (11) Chronic atrial fibrillation: (12) CAD (coronary artery disease): (13) OSCAR (obstructive sleep apnea): (14) Chronic back pain: (15) Cor pulmonale: (16) COVID: Plan: Patient responding to diuresis plan to continue overall weight gain greater than 10 kg since last dry weight INR therapeutic we will discontinue heparin to reduce fluid infusion Renal function slightly worse today patient did receive IV contrast for CTA on admission. BMP will be ordered for 3 PM this afternoon. If acute change in renal function may need to hold p.m. diuretics Admission and Anticipated Discharge Date Admission Date: July 28, 2021 Subjective Patient's chart and telemetry reviewed. Ongoing issues and medical care discussed with caregivers. Patient not examined No respiratory distress noted. No hypoxia Patient diuresing Renal function slightly worsened Results & Data ([facility]) Vital Signs (Past 12 Hours) Vital Signs Temp Pulse Pulse Resp BP Pulse Ox 07/30/21 07:39 36.6 C 77 20 122/78 97 07/30/21 04:00 36.5 C 75 16 122/84 94 07/30/21 00:10 93 H 19 94 07/29/21 23:12 36.5 C 76 16 147/85 H 96 Laboratory Results Laboratory Results - last 24 hr 07/29/21 07/29/21 07/30/21 17:04 19:31 06:56 PT 19.8 H INR 2.1 H APTT 47.8 H* 42.9 H 46.5 H* PTT Ratio 1.8 1.6 1.8 Sodium Potassium Chloride Carbon Dioxide Anion Gap BUN Creatinine Est Cr Clr Drug Dosing Est GFR ( Amer) Est GFR (Non-Af Amer) BUN/Creatinine Ratio Glucose Calcium C-Reactive Protein Procalcitonin 07/30/21 07/30/21 06:56 06:56 PT INR APTT PTT Ratio Sodium 131 L Potassium 3.3 L D Chloride 91 L Carbon Dioxide 34 H Anion Gap 6.0 BUN 35 H Creatinine 2.17 H Est Cr Clr Drug Dosing 57.3 Est GFR ( Amer) 37.3 Est GFR (Non-Af Amer) 32.1 BUN/Creatinine Ratio 16.0 Glucose 111 H Calcium 9.7 C-Reactive Protein 5.14 H Procalcitonin 0.29 (1) Chest pain Chest pain type: unspecified Qualified Code(s): R07.9 - Chest pain, unspecified (2) CKD (chronic kidney disease) Chronic kidney disease stage: unspecified stage Qualified Code(s): N18.9 - Chronic kidney disease, unspecified
[2021-07-30] MEDS: HEPARIN SODIUM/DEXTROSE 25,000 UNITS/500 ML BAG IV SCH (10:55)
--- NOTE | 2021-07-30 11:46 | Hospitalist Progress Note ---
Date of Service July 30, 2021 Assessment & Plan (1) Decompensated heart failure: Plan: Decompensated right-sided heart failure Cor pulmonale CXR showed:Cardiomegaly without evidence of acute abnormality. Last ECHO: Moderate concentric LVH. EF 55 to 60%. Abnormal wall motion consistent with pacemaker activation. Continue IV Lasix and aldactone Cr increased today. Will follow up recheck this afternoon already ordered by Cardiology Daily weight, I/Os, fluid restriction Low sodium diet Oxygen support as needed Monitor renal function/electrolytes COVID 19 Pneumonia Acute respiratory failure with hypoxia CTA showed Bibasilar consolidative opacities are suggestive of pneumonia versus aspiration pneumonitis. Bronchial wall thickening suggestive of bronchitis. Prior granulomatous disease. Empirically started on doxycycline, Rocephin Continue dexamethasone Likely may not benefit from remdesivir given onset of symptoms. Continue Nebs Procal is 0.46--> 0.29 Stop antibiotics Chronic A. fib Sick sinus syndrome Single-chamber pacemaker Subtherapeutic INR Continue Coumadin INR is therapeutic today. Stop heparin drip Continue metoprolol Hyponatremia Hypokalemia secondary to diuretics K is 3.3 today. on po K. Monitor H/O CAD S/P CABG Denies chest pain Continue Aspirin, Statin, Isosorbide, Metoprolol CKD III Creatinine increased today. Got contrast with CT on admission Will monitor as stated above Avoid nephrotoxic agents as able Monitor renal function while on IV diuretics OSCAR On CPAP at bedtime Morbid obesity BMI 67 Hyperlipidemia On statin DVT Px: Coumadin Code Status Full Code Disposition PT/OT Patient requesting rehab Admission and Anticipated Discharge Date Admission Date: July 28, 2021 Subjective Patient seen and examined. Reports improvement in shortness of breath Still has cough Denies chest pain, palpitations Denies nausea, vomiting, abdominal pain, diarrhea, anorexia Has leg swelling. Physical Exam Constitutional: + well hydrated and + morbidly obese; no acute distress Eyes: PERRL, conjunctivae normal, anicteric sclerae ENMT: external ear and nose normal, oropharynx normal Respiratory: Diminished breath sounds. No crackles Cardiovascular: Rate/Rhythm: + irregularly irregular S1 S2 Gastrointestinal (Abdomen): normal bowel sounds, soft, nontender, no hepatosplenomegaly Musculoskeletal: No pedal edema Neurologic: PERRL, EOMI, accommodation nl, no face palsy, no dysarthria Psychiatric: A+Ox3, euthymic affect Results & Data Results & Data ([facility]) Vital Signs (Past 12 Hours) Vital Signs Temp Pulse Pulse Resp BP Pulse Ox 07/30/21 07:39 36.6 C 77 20 122/78 97 07/30/21 04:00 36.5 C 75 16 122/84 94 07/30/21 00:10 93 H 19 94 Laboratory Results Abnormal lab results 07/29/21 07/29/21 07/30/21 Range/Units 17:04 19:31 06:56 PT 19.8 H (9.0-12.0) Seconds INR 2.1 H (0.9-1.1) APTT 47.8 H* 42.9 H 46.5 H* (21.0-31.0) Seconds Sodium (136-145) mmol/L Potassium (3.5-5.1) mmol/L Chloride (98-107) mmol/L Carbon Dioxide (21-32) mmol/L BUN (7-18) mg/dl Creatinine (0.6-1.4) mg/dl Glucose (70-99) mg/dl C-Reactive Protein (0-0.29) mg/dl 07/30/21 Range/Units 06:56 PT (9.0-12.0) Seconds INR (0.9-1.1) APTT (21.0-31.0) Seconds Sodium 131 L (136-145) mmol/L Potassium 3.3 L D (3.5-5.1) mmol/L Chloride 91 L (98-107) mmol/L Carbon Dioxide 34 H (21-32) mmol/L BUN 35 H (7-18) mg/dl Creatinine 2.17 H (0.6-1.4) mg/dl Glucose 111 H (70-99) mg/dl C-Reactive Protein 5.14 H (0-0.29) mg/dl
[2021-07-30] MEDS: SUCRALFATE 1 GM TAB PO SCH (13:13)
[2021-07-30] MEDS: traMADol HCL 50 MG TABLET PO PRN ×2 (13:13→20:06)
[2021-07-30 16:03] LABS: Calcium 9.3 mg/dl (8.5-10.1); Creatinine Clr Calc Pharmacy 55.8 ml/min; Est GFR (Non-African American) 31.1 ml/min; Potassium 3.9 mmol/L (3.5-5.1)
[2021-07-30] MEDS: WARFARIN SOD 7.5 MG TAB PO SCH (17:02)
[2021-07-30] MEDS: QUEtiapine FUMARATE 200 MG TAB PO SCH (20:09)
[2021-07-30] MEDS: TAMSULOSIN HCL 0.4 MG CAP PO SCH (20:09)
[2021-07-30] MEDS: ZOLPIDEM TARTRATE 5 MG TAB PO PRN (23:45)
[2021-07-31] MEDS: EZETIMIBE 10 MG TABLET PO SCH (07:52)
[2021-07-31] MEDS: TOPIRAMATE 25 MG TAB PO SCH ×2 (07:52→21:22)
[2021-07-31] MEDS: ROSUVASTATIN CALCIUM 20 MG TAB PO SCH (07:52)
[2021-07-31] MEDS: METOPROLOL SUCC 50MG EXT REL TAB PO SCH (07:52)
[2021-07-31] MEDS: lamoTRIgine 100 MG TAB PO SCH ×2 (07:53→21:22)
[2021-07-31] MEDS: ESCITALOPRAM OXALATE 10 MG TAB PO SCH (07:53)
[2021-07-31] MEDS: SPIRONOLACTONE 25 MG TAB PO SCH ×2 (07:53→21:23)
[2021-07-31] MEDS: ISOSORBIDE MONO EXTENDED REL 30 MG TABCR PO SCH (07:53)
[2021-07-31] MEDS: traMADol HCL 50 MG TABLET PO PRN ×2 (07:54→15:04)
[2021-07-31] MEDS: ARIPiprazole 5 MG TAB PO SCH (07:54)
[2021-07-31] MEDS: GABAPENTIN 600 MG TAB PO SCH ×2 (07:54→21:23)
[2021-07-31] MEDS: dexAMETHasone 6 MG in SYRINGE 0 ML IV SCH (07:54)
[2021-07-31] MEDS: FLUTICASONE/VILANTEROL 200/25MCG 14 PUFFS/INHALER INH SCH (07:55)
[2021-07-31] MEDS: LIDOCAINE 5% 1 PATCH TD SCH (07:56)
[2021-07-31] MEDS: POTASSIUM CHLORIDE CRTAB 20 MEQ TABCR PO SCH ×3 (07:59→21:31)
[2021-07-31] MEDS: FUROSEMIDE 40 MG/4 ML VIAL IV SCH ×2 (08:00→21:31)
[2021-07-31 08:01] LABS: Hematocrit (blood only) 37.4 % (42-52); Hemoglobin 12.4 g/dL (14.0-18.0); Mean Corpuscular Hemoglobin 27.9 pg (25-34); Mean Corpuscular Hgb Conc 33.2 g/dL (32-36); Mean Platelet Volume 10.6 fL (7.4-10.4); Platelet Count 275 K/uL (130-400); RDW Coefficient of Variation 17.1 % (11.5-14.5); RDW Standard Deviation 52.7 fL (36.4-46.3); Red Blood Count 4.45 M/uL (4.7-6.1); White Blood Count 15.95 K/uL (4.8-10.8)
[2021-07-31 08:10] LABS: INR 2.8 (0.9-1.1); Partial Thromboplastin Ratio 1.6; Partial Thromboplastin Time 41.5 Seconds (21.0-31.0); Prothrombin Time 25.9 Seconds (9.0-12.0)
[2021-07-31 08:24] LABS: BUN Creatinine Ratio 19.7 (10-20); Calcium 9.5 mg/dl (8.5-10.1); Creatinine Clr Calc Pharmacy 64.1 ml/min; Est GFR (African American) 42.7 ml/min; Est GFR (Non-African American) 36.8 ml/min; Potassium 3.5 mmol/L (3.5-5.1)
--- NOTE | 2021-07-31 11:45 | Cardiology Progress Note ---
Date of Service July 31, 2021 Assessment & Plan (1) Hypoxia: (2) Nonadherence to medication: (3) Dietary noncompliance: (4) Chest pain: (5) SOB (shortness of breath): (6) SSS (sick sinus syndrome): (7) CKD (chronic kidney disease): (8) Morbid obesity: (9) Right-sided congestive heart failure: (10) Lower extremity edema: (11) Chronic atrial fibrillation: (12) CAD (coronary artery disease): (13) OSCAR (obstructive sleep apnea): (14) Chronic back pain: (15) Cor pulmonale: (16) COVID: Plan: Patient responding to diuresis plan to continue overall weight gain greater than 10 kg since last dry weight INR therapeutic renal function continues to improve cont current meds strict I/O's Admission and Anticipated Discharge Date Admission Date: July 28, 2021 Subjective Patient reports he is feeling better. Shortness of breath continues to improve. Results & Data ([facility]) Vital Signs (Past 12 Hours) Vital Signs Temp Pulse Pulse Resp BP Pulse Ox 07/31/21 10:40 72 07/31/21 07:00 36.7 C 78 20 118/74 97 07/31/21 04:05 36.7 C 80 19 127/77 96 07/31/21 01:06 70 14 92 07/31/21 00:15 36.5 C 75 19 125/74 97 (1) CKD (chronic kidney disease) Chronic kidney disease stage: unspecified stage Qualified Code(s): N18.9 - Chronic kidney disease, unspecified (2) Chest pain Chest pain type: unspecified Qualified Code(s): R07.9 - Chest pain, unspecified
[2021-07-31] MEDS: SUCRALFATE 1 GM TAB PO SCH (12:20)
--- NOTE | 2021-07-31 14:02 | Hospitalist Progress Note ---
Date of Service July 31, 2021 Assessment & Plan (1) Decompensated heart failure: Plan: Decompensated right-sided heart failure Cor pulmonale CXR showed:Cardiomegaly without evidence of acute abnormality. Last ECHO: Moderate concentric LVH. EF 55 to 60%. Abnormal wall motion consistent with pacemaker activation. Continue IV Lasix and aldactone Daily weight. Weight was 174.4kg on 07/05/21 during recent admission. Currently 183.9kg Patient has h/o poor adherence to diet/fluid management of heart failure Counselled patient on need for adherence Reports adherence to medications I/Os, fluid restriction Low sodium diet Oxygen support as needed Monitor renal function/electrolytes COVID 19 Pneumonia Acute respiratory failure with hypoxia CTA showed Bibasilar consolidative opacities are suggestive of pneumonia versus aspiration pneumonitis. Bronchial wall thickening suggestive of bronchitis. Prior granulomatous disease. Empirically started on doxycycline, Rocephin Continue dexamethasone Likely may not benefit from remdesivir given onset of symptoms. Continue Nebs Chronic A. fib Sick sinus syndrome Single-chamber pacemaker Subtherapeutic INR Continue Coumadin Hyponatremia Hypokalemia secondary to diuretics K is 3.5 today. Monitor H/O CAD S/P CABG Denies chest pain Continue Aspirin, Statin, Isosorbide, Metoprolol CKD III Avoid nephrotoxic agents as able Monitor renal function while on IV diuretics OSCAR On CPAP at bedtime Morbid obesity BMI 67 Hyperlipidemia On statin DVT Px: Coumadin Code Status Full Code Disposition Plan to dc home with HH when medically stable Admission and Anticipated Discharge Date Admission Date: July 28, 2021 Subjective Patient seen and examined. Patient reports shortness of breath is improved but intermittent Still has cough Denies chest pain, palpitations Denies nausea, vomiting, abdominal pain, diarrhea, anorexia Physical Exam Constitutional: + well hydrated and + morbidly obese; no acute distress Eyes: PERRL, conjunctivae normal, anicteric sclerae ENMT: external ear and nose normal, oropharynx normal Respiratory: Not in resp distress, diminished breath sounds, no crackles Cardiovascular: Rate/Rhythm: + irregularly irregular S1 S2 Gastrointestinal (Abdomen): normal bowel sounds, soft, nontender, no hepat osplenomegaly Musculoskeletal: Leg edema Neurologic: PERRL, EOMI, accommodation nl, no face palsy, no dysarthria Psychiatric: A+Ox3, euthymic affect Results & Data Results & Data ([place]) Vital Signs (Past 12 Hours) Vital Signs Temp Pulse Pulse Resp BP Pulse Ox 07/31/21 10:40 72 07/31/21 07:00 36.7 C 78 20 118/74 97 07/31/21 04:05 36.7 C 80 19 127/77 96 Laboratory Results Abnormal lab results 07/30/21 07/31/21 07/31/21 Range/Units 15:23 07:23 07:23 WBC 15.95 H (4.8-10.8) K/uL RBC 4.45 L (4.7-6.1) M/uL Hgb 12.4 L (14.0-18.0) g/dL Hct 37.4 L (42-52) % RDW Std Deviation 52.7 H (36.4-46.3) fL RDW Coeff of Karlene 17.1 H (11.5-14.5) % MPV 10.6 H (7.4-10.4) fL PT (9.0-12.0) Seconds INR (0.9-1.1) APTT (21.0-31.0) Seconds Sodium 129 L 130 L (136-145) mmol/L Chloride 90 L 93 L (98-107) mmol/L BUN 40 H 38 H (7-18) mg/dl Creatinine 2.23 H 1.94 H (0.6-1.4) mg/dl Glucose 121 H 111 H (70-99) mg/dl 07/31/21 Range/Units 07:23 WBC (4.8-10.8) K/uL RBC (4.7-6.1) M/uL Hgb (14.0-18.0) g/dL Hct (42-52) % RDW Std Deviation (36.4-46.3) fL RDW Coeff of Karlene (11.5-14.5) % MPV (7.4-10.4) fL PT 25.9 H (9.0-12.0) Seconds INR 2.8 H (0.9-1.1) APTT 41.5 H (21.0-31.0) Seconds Sodium (136-145) mmol/L Chloride (98-107) mmol/L BUN (7-18) mg/dl Creatinine (0.6-1.4) mg/dl Glucose (70-99) mg/dl
[2021-07-31] MEDS: WARFARIN SOD 7.5 MG TAB PO SCH (15:02)
[2021-07-31] MEDS: QUEtiapine FUMARATE 200 MG TAB PO SCH (21:22)
[2021-07-31] MEDS: TAMSULOSIN HCL 0.4 MG CAP PO SCH (21:22)
[2021-07-31] MEDS: ZOLPIDEM TARTRATE 5 MG TAB PO PRN (23:03)
[2021-08-01] MEDS: traMADol HCL 50 MG TABLET PO PRN ×3 (06:19→23:31)
[2021-08-01] MEDS: FUROSEMIDE 40 MG/4 ML VIAL IV SCH ×2 (07:50→21:19)
[2021-08-01] MEDS: dexAMETHasone 6 MG in SYRINGE 0 ML IV SCH (07:51)
[2021-08-01] MEDS: ARIPiprazole 5 MG TAB PO SCH (07:51)
[2021-08-01] MEDS: lamoTRIgine 100 MG TAB PO SCH ×2 (07:51→20:56)
[2021-08-01] MEDS: GABAPENTIN 600 MG TAB PO SCH ×2 (07:51→20:54)
[2021-08-01] MEDS: SPIRONOLACTONE 25 MG TAB PO SCH ×2 (07:52→20:56)
[2021-08-01] MEDS: ROSUVASTATIN CALCIUM 20 MG TAB PO SCH (07:52)
[2021-08-01] MEDS: TOPIRAMATE 25 MG TAB PO SCH ×2 (07:52→20:56)
[2021-08-01] MEDS: ISOSORBIDE MONO EXTENDED REL 30 MG TABCR PO SCH (07:52)
[2021-08-01] MEDS: EZETIMIBE 10 MG TABLET PO SCH (07:52)
[2021-08-01] MEDS: METOPROLOL SUCC 50MG EXT REL TAB PO SCH (07:52)
[2021-08-01] MEDS: FLUTICASONE/VILANTEROL 200/25MCG 14 PUFFS/INHALER INH SCH (07:53)
[2021-08-01] MEDS: LIDOCAINE 5% 1 PATCH TD SCH (07:54)
[2021-08-01] MEDS: POTASSIUM CHLORIDE CRTAB 20 MEQ TABCR PO SCH ×3 (07:55→20:54)
[2021-08-01] MEDS: ESCITALOPRAM OXALATE 10 MG TAB PO SCH (09:00)
[2021-08-01 09:12] LABS: INR 3.8 (0.9-1.1); Partial Thromboplastin Ratio 1.5; Partial Thromboplastin Time 39.2 Seconds (21.0-31.0)
[2021-08-01 09:17] LABS: BUN Creatinine Ratio 19.4 (10-20); Calcium 9.5 mg/dl (8.5-10.1); Creatinine Clr Calc Pharmacy 68.6 ml/min; Est GFR (African American) 46.4 ml/min; Potassium 3.6 mmol/L (3.5-5.1)
[2021-08-01] MEDS: SUCRALFATE 1 GM TAB PO SCH (11:09)
--- NOTE | 2021-08-01 12:51 | Cardiology Progress Note ---
Date of Service August 01, 2021 Assessment & Plan (1) Hypoxia: (2) Nonadherence to medication: (3) Dietary noncompliance: (4) Chest pain: (5) SOB (shortness of breath): (6) SSS (sick sinus syndrome): (7) CKD (chronic kidney disease): (8) Morbid obesity: (9) Right-sided congestive heart failure: (10) Lower extremity edema: (11) Chronic atrial fibrillation: (12) CAD (coronary artery disease): (13) OSCAR (obstructive sleep apnea): (14) Chronic back pain: (15) Cor pulmonale: (16) COVID: Plan: Patient responding to diuresis plan to continue overall weight gain greater than 10 kg since last dry weight INR therapeutic renal function continues to improve cont current meds strict I/O's Admission and Anticipated Discharge Date Admission Date: July 28, 2021 Subjective Patient reports he is feeling better. Shortness of breath continues to improve. Results & Data ([facility]) Vital Signs (Past 12 Hours) Vital Signs Temp Pulse Pulse Resp BP Pulse Ox 08/01/21 11:51 94 08/01/21 11:08 36.5 C 78 18 125/76 95 08/01/21 09:00 66 08/01/21 08:25 36.4 C L 76 22 146/92 H 93 08/01/21 03:16 36.6 C 61 20 133/69 90 (1) CKD (chronic kidney disease) Chronic kidney disease stage: unspecified stage Qualified Code(s): N18.9 - Chronic kidney disease, unspecified (2) Chest pain Chest pain type: unspecified Qualified Code(s): R07.9 - Chest pain, unspecified
--- NOTE | 2021-08-01 13:00 | Hospitalist Progress Note ---
Date of Service August 01, 2021 Assessment & Plan (1) Decompensated heart failure: Plan: Decompensated right-sided heart failure Cor pulmonale CXR showed:Cardiomegaly without evidence of acute abnormality. Last ECHO: Moderate concentric LVH. EF 55 to 60%. Abnormal wall motion consistent with pacemaker activation. Continue IV Lasix Continue aldactone Daily weight. Weight was 174.4kg on 07/05/21 during recent admission. Currently 183.6kg Patient has h/o poor adherence to diet/fluid management of heart failure I/Os, fluid restriction Low sodium diet Oxygen support as needed Monitor renal function/electrolytes COVID 19 Pneumonia Acute respiratory failure with hypoxia CTA showed Bibasilar consolidative opacities are suggestive of pneumonia versus aspiration pneumonitis. Bronchial wall thickening suggestive of bronchitis. Prior granulomatous disease. Empirically started on doxycycline, Rocephin Continue dexamethasone Likely may not benefit from remdesivir given onset of symptoms. Continue Nebs Chronic A. fib Sick sinus syndrome Single-chamber pacemaker Subtherapeutic INR INR currently supratherapeutic. Hold warfarin and monitor Hyponatremia Hypokalemia secondary to diuretics K is 3.6 today. Monitor H/O CAD S/P CABG Denies chest pain Continue Aspirin, Statin, Isosorbide, Metoprolol CKD III Avoid nephrotoxic agents as able Monitor renal function while on IV diuretics OSCAR On CPAP at bedtime Morbid obesity BMI 67 Hyperlipidemia On statin DVT Px: Coumadin Code Status Full Code Disposition Plan to dc home with when medically stable Admission and Anticipated Discharge Date Admission Date: July 28, 2021 Subjective Patient seen and examined. Reports cough and shortness of breath are improving Denies chest pain, palpitations Denies nausea, vomiting, abdominal pain, diarrhea, anorexia Physical Exam Constitutional: + well hydrated and + morbidly obese; no acute distress Eyes: PERRL, conjunctivae normal, anicteric sclerae ENMT: external ear and nose normal, oropharynx normal Respiratory: On room air. Diminished breath sounds. Cardiovascular: Rate/Rhythm: + irregularly irregular S1 S2 Gastrointestinal (Abdomen): normal bowel sounds, soft, nontender, no hepatosplenomegaly Musculoskeletal: Pedal edema Neurologic: PERRL, EOMI, accommodation nl, no face palsy, no dysarthria Psychiatric: A+Ox3, euthymic affect Results & Data Results & Data ([facility]) Vital Signs (Past 12 Hours) Vital Signs Temp Pulse Pulse Resp BP Pulse Ox 08/01/21 11:51 94 08/01/21 11:08 36.5 C 78 18 125/76 95 08/01/21 09:00 66 08/01/21 08:25 36.4 C L 76 22 146/92 H 93 08/01/21 03:16 36.6 C 61 20 133/69 90 Laboratory Results Abnormal lab results 08/01/21 08/01/21 Range/Units 08:11 08:11 PT 35.0 H (9.0-12.0) Seconds INR 3.8 H (0.9-1.1) APTT 39.2 H (21.0-31.0) Seconds Sodium 132 L (136-145) mmol/L Chloride 96 L (98-107) mmol/L BUN 35 H (7-18) mg/dl Creatinine 1.81 H (0.6-1.4) mg/dl Glucose 104 H (70-99) mg/dl
[2021-08-01] MEDS: WARFARIN SOD 7.5 MG TAB PO SCH (15:18)
[2021-08-01] MEDS: TAMSULOSIN HCL 0.4 MG CAP PO SCH (20:56)
[2021-08-01] MEDS: QUEtiapine FUMARATE 200 MG TAB PO SCH (21:44)
[2021-08-01] MEDS: ZOLPIDEM TARTRATE 5 MG TAB PO PRN (23:32)
[2021-08-02 06:38] LABS: INR 4.1 (0.9-1.1); Partial Thromboplastin Ratio 1.7; Partial Thromboplastin Time 44.8 Seconds (21.0-31.0); Prothrombin Time 36.9 Seconds (9.0-12.0)
[2021-08-02 07:16] LABS: BUN Creatinine Ratio 20.7 (10-20); Calcium 9.4 mg/dl (8.5-10.1); Creatinine Clr Calc Pharmacy 71.3 ml/min; Est GFR (African American) 48.7 ml/min
[2021-08-02] MEDS: dexAMETHasone 6 MG in SYRINGE 0 ML IV SCH (08:20)
[2021-08-02] MEDS: FUROSEMIDE 40 MG/4 ML VIAL IV SCH ×2 (08:20→20:46)
[2021-08-02] MEDS: FLUTICASONE/VILANTEROL 200/25MCG 14 PUFFS/INHALER INH SCH (08:20)
[2021-08-02] MEDS: LIDOCAINE 5% 1 PATCH TD SCH (08:22)
[2021-08-02] MEDS: GABAPENTIN 600 MG TAB PO SCH ×2 (08:22→20:49)
[2021-08-02] MEDS: lamoTRIgine 100 MG TAB PO SCH ×2 (08:22→20:49)
[2021-08-02] MEDS: ESCITALOPRAM OXALATE 10 MG TAB PO SCH (08:23)
[2021-08-02] MEDS: metOLazone 2.5 MG TABLET PO SCH (08:23)
[2021-08-02] MEDS: ARIPiprazole 5 MG TAB PO SCH (08:23)
[2021-08-02] MEDS: EZETIMIBE 10 MG TABLET PO SCH (08:23)
[2021-08-02] MEDS: ISOSORBIDE MONO EXTENDED REL 30 MG TABCR PO SCH (08:23)
[2021-08-02] MEDS: ROSUVASTATIN CALCIUM 20 MG TAB PO SCH (08:23)
[2021-08-02] MEDS: METOPROLOL SUCC 50MG EXT REL TAB PO SCH (08:23)
[2021-08-02] MEDS: TOPIRAMATE 25 MG TAB PO SCH ×2 (08:24→20:49)
[2021-08-02] MEDS: SPIRONOLACTONE 25 MG TAB PO SCH ×2 (08:24→20:49)
[2021-08-02] MEDS: traMADol HCL 50 MG TABLET PO PRN ×2 (08:29→19:34)
[2021-08-02] MEDS: POTASSIUM CHLORIDE CRTAB 20 MEQ TABCR PO SCH ×3 (08:30→20:47)
[2021-08-02] MEDS: SUCRALFATE 1 GM TAB PO SCH (10:43)
--- NOTE | 2021-08-02 12:51 | Hospitalist Progress Note ---
Date of Service August 02, 2021 Assessment & Plan (1) Decompensated heart failure: Plan: Decompensated right-sided heart failure Cor pulmonale CXR showed:Cardiomegaly without evidence of acute abnormality. Last ECHO: Moderate concentric LVH. EF 55 to 60%. Abnormal wall motion consistent with pacemaker activation. Continue IV Lasix Continue aldactone Continue daily weights Patient has h/o poor adherence to diet/fluid management of heart failure I/Os, fluid restriction Low sodium diet Currently off oxygen Monitor renal function/electrolytes COVID 19 Pneumonia Acute respiratory failure with hypoxia CTA showed Bibasilar consolidative opacities are suggestive of pneumonia versus aspiration pneumonitis. Bronchial wall thickening suggestive of bronchitis. Prior granulomatous disease. Empirically started on doxycycline, Rocephin Continue dexamethasone Likely may not benefit from remdesivir given onset of symptoms. Continue Nebs Chronic A. fib Sick sinus syndrome Single-chamber pacemaker Subtherapeutic INR INR still supratherapeutic. Continue to hold warfarin and monitor Hyponatremia Hypokalemia secondary to diuretics K is 3.8 today. Monitor H/O CAD S/P CABG Denies chest pain Continue Aspirin, Statin, Isosorbide, Metoprolol CKD III Avoid nephrotoxic agents as able Monitor renal function while on IV diuretics OSCAR On CPAP at bedtime Morbid obesity BMI 67 Hyperlipidemia On statin DVT Px: Coumadin Code Status Full Code Disposition Plan to dc home with HH when medically stable Admission and Anticipated Discharge Date Admission Date: July 28, 2021 Subjective Patient seen and examined. Reports cough and shortness of breath continue to improve Denies chest pain, palpitations Denies nausea, vomiting, abdominal pain, diarrhea, anorexia Physical Exam Constitutional: + well hydrated and + morbidly obese; no acute distress Eyes: PERRL, conjunctivae normal, anicteric sclerae ENMT: external ear and nose normal, oropharynx normal Respiratory: Diminished breath sounds. No crackles Cardiovascular: Rate/Rhythm: + irregularly irregular S1 S2 Gastrointestinal (Abdomen): normal bowel sounds, soft, nontender, no hepatosplenomegaly Musculoskeletal: No pedal edema Neurologic: PERRL, EOMI, accommodation nl, no face palsy, no dysarthria Psychiatric: A+Ox3, euthymic affect Results & Data Results & Data ([facility]) Vital Signs (Past 12 Hours) Vital Signs Temp Pulse Pulse Resp BP Pulse Ox 08/02/21 11:46 36.7 C 69 18 142/91 H 95 08/02/21 07:53 36.6 C 71 22 149/90 H 95 08/02/21 04:00 36.7 C 70 20 122/70 93 08/02/21 01:10 72 22 94 Laboratory Results Abnormal lab results 08/02/21 08/02/21 Range/Units 05:55 05:55 PT 36.9 H (9.0-12.0) Seconds INR 4.1 H (0.9-1.1) APTT 44.8 H (21.0-31.0) Seconds Sodium 130 L (136-145) mmol/L Chloride 97 L (98-107) mmol/L BUN 36 H (7-18) mg/dl Creatinine 1.74 H (0.6-1.4) mg/dl BUN/Creatinine Ratio 20.7 H (10-20) Glucose 104 H (70-99) mg/dl
--- NOTE | 2021-08-02 15:22 | Cardiology Progress Note ---
Date of Service August 02, 2021 Assessment & Plan (1) Hypoxia: (2) Nonadherence to medication: (3) Dietary noncompliance: (4) Chest pain: (5) SOB (shortness of breath): (6) SSS (sick sinus syndrome): (7) CKD (chronic kidney disease): (8) Morbid obesity: (9) Right-sided congestive heart failure: (10) Lower extremity edema: (11) Chronic atrial fibrillation: (12) CAD (coronary artery disease): (13) OSCAR (obstructive sleep apnea): (14) Chronic back pain: (15) Cor pulmonale: (16) COVID: Plan: Patient responding to diuresis, will continue INR supratherapeutic renal function continues to improve cont current meds strict I/O's Admission and Anticipated Discharge Date Admission Date: July 28, 2021 Subjective Chart reviewed. Patient reports symptoms continue to improve with continued diuresis. Telemetry reviewed: Normal sinus rhythm without arrhythmia. Results & Data ([facility]) Vital Signs (Past 12 Hours) Vital Signs Temp Pulse Resp BP Pulse Ox 08/02/21 11:46 36.7 C 69 18 142/91 H 95 08/02/21 07:53 36.6 C 71 22 149/90 H 95 08/02/21 04:00 36.7 C 70 20 122/70 93 (1) Chest pain Chest pain type: unspecified Qualified Code(s): R07.9 - Chest pain, unspecified (2) CKD (chronic kidney disease) Chronic kidney disease stage: unspecified stage Qualified Code(s): N18.9 - Chronic kidney disease, unspecified
[2021-08-02] MEDS: ALBUT/IPRATROP 3MG/0.5MG NEB 3 ML VIAL NEB PRN (15:35)
[2021-08-02] MEDS: TAMSULOSIN HCL 0.4 MG CAP PO SCH (20:49)
[2021-08-02] MEDS: QUEtiapine FUMARATE 200 MG TAB PO SCH (20:50)
[2021-08-02] MEDS: ZOLPIDEM TARTRATE 5 MG TAB PO PRN (22:50)
[2021-08-03] MEDS: ALBUT/IPRATROP 3MG/0.5MG NEB 3 ML VIAL NEB PRN ×2 (06:30→15:05)
[2021-08-03 06:58] LABS: Hematocrit (blood only) 44.8 % (42-52); Hemoglobin 14.9 g/dL (14.0-18.0); Mean Corpuscular Hemoglobin 27.5 pg (25-34); Mean Corpuscular Hgb Conc 33.3 g/dL (32-36); Mean Corpuscular Volume 82.8 fL (80-100); Platelet Count 288 K/uL (130-400); RDW Coefficient of Variation 17.1 % (11.5-14.5); RDW Standard Deviation 51.5 fL (36.4-46.3); Red Blood Count 5.41 M/uL (4.7-6.1); White Blood Count 20.09 K/uL (4.8-10.8)
[2021-08-03 07:10] LABS: INR 2.5 (0.9-1.1); Partial Thromboplastin Ratio 1.7; Partial Thromboplastin Time 43.8 Seconds (21.0-31.0); Prothrombin Time 23.6 Seconds (9.0-12.0)
[2021-08-03 07:30] LABS: BUN Creatinine Ratio 25.2 (10-20); Calcium 9.8 mg/dl (8.5-10.1); Creatinine Clr Calc Pharmacy 64.4 ml/min; Est GFR (African American) 45.2 ml/min; Potassium 3.7 mmol/L (3.5-5.1)
[2021-08-03] MEDS: traMADol HCL 50 MG TABLET PO PRN ×2 (08:12→20:41)
[2021-08-03] MEDS: FUROSEMIDE 40 MG/4 ML VIAL IV SCH ×2 (08:12→20:39)
[2021-08-03] MEDS: POTASSIUM CHLORIDE CRTAB 20 MEQ TABCR PO SCH ×3 (08:12→20:40)
[2021-08-03] MEDS: TOPIRAMATE 25 MG TAB PO SCH ×2 (08:13→20:40)
[2021-08-03] MEDS: SPIRONOLACTONE 25 MG TAB PO SCH ×2 (08:13→20:40)
[2021-08-03] MEDS: dexAMETHasone 6 MG in SYRINGE 0 ML IV SCH (08:13)
[2021-08-03] MEDS: lamoTRIgine 100 MG TAB PO SCH ×2 (08:13→20:39)
[2021-08-03] MEDS: FLUTICASONE/VILANTEROL 200/25MCG 14 PUFFS/INHALER INH SCH (08:13)
[2021-08-03] MEDS: GABAPENTIN 600 MG TAB PO SCH ×2 (08:13→20:39)
[2021-08-03] MEDS: ESCITALOPRAM OXALATE 10 MG TAB PO SCH (08:14)
[2021-08-03] MEDS: EZETIMIBE 10 MG TABLET PO SCH (08:14)
[2021-08-03] MEDS: ROSUVASTATIN CALCIUM 20 MG TAB PO SCH (08:14)
[2021-08-03] MEDS: METOPROLOL SUCC 50MG EXT REL TAB PO SCH (08:15)
[2021-08-03] MEDS: ISOSORBIDE MONO EXTENDED REL 30 MG TABCR PO SCH (08:15)
[2021-08-03] MEDS: ARIPiprazole 5 MG TAB PO SCH (08:15)
[2021-08-03] MEDS: LIDOCAINE 5% 1 PATCH TD SCH (08:16)
[2021-08-03] MEDS: SUCRALFATE 1 GM TAB PO SCH (10:55)
--- NOTE | 2021-08-03 12:14 | Hospitalist Progress Note ---
Date of Service August 03, 2021 Assessment & Plan (1) Decompensated heart failure: Plan: Decompensated right-sided heart failure Cor pulmonale CXR showed:Cardiomegaly without evidence of acute abnormality. Last ECHO: Moderate concentric LVH. EF 55 to 60%. Abnormal wall motion consistent with pacemaker activation. Responding to diuresis. Continue IV Lasix Continue aldactone Continue daily weights Patient has h/o poor adherence to diet/fluid management of heart failure I/Os, fluid restriction Low sodium diet Monitor renal function/electrolytes COVID 19 Pneumonia Acute respiratory failure with hypoxia CTA showed Bibasilar consolidative opacities are suggestive of pneumonia versus aspiration pneumonitis. Bronchial wall thickening suggestive of bronchitis. Prior granulomatous disease. Empirically started on doxycycline, Rocephin Continue dexamethasone Likely may not benefit from remdesivir given onset of symptoms. Continue Nebs Chronic A. fib Sick sinus syndrome Single-chamber pacemaker INR is therapeutic today. Resume coumadin Hyponatremia Hypokalemia secondary to diuretics K is 3.7 today. Monitor H/O CAD S/P CABG Denies chest pain Continue Aspirin, Statin, Isosorbide, Metoprolol CKD III Avoid nephrotoxic agents as able Monitor renal function while on IV diuretics OSCAR On CPAP at bedtime Morbid obesity BMI 67 Hyperlipidemia On statin DVT Px: Coumadin Code Status Full Code Disposition Plan to dc home with HH when medically stable Admission and Anticipated Discharge Date Admission Date: July 28, 2021 Subjective Patient seen and examined. Reports cough and shortness of breath continue to improve Denies chest pain, palpitations Denies nausea, vomiting, abdominal pain, diarrhea, anorexia Physical Exam 2 Constitutional: + well hydrated and + morbidly obese; no acute distress Eyes: PERRL, conjunctivae normal, anicteric sclerae ENMT: external ear and nose normal, oropharynx normal Respiratory: Diminished breath sounds. No crackles Cardiovascular: Rate/Rhythm: + irregularly irregular S1 S2 Gastrointestinal (Abdomen): normal bowel sounds, soft, nontender, no hepatosplenomegaly Musculoskeletal: Pedal edema Neurologic: PERRL, EOMI, accommodation nl, no face palsy, no dysarthria Psychiatric: A+Ox3, euthymic affect Results & Data Results & Data ([facility]) Vital Signs (Past 12 Hours) Vital Signs Temp Pulse Pulse Resp BP Pulse Ox 08/03/21 11:39 36.5 C 93 H 18 130/85 92 08/03/21 07:08 36.6 C 82 18 138/89 96 08/03/21 06:59 75 08/03/21 06:31 84 20 94 08/03/21 05:48 83 18 98 08/03/21 05:00 77 18 96 08/03/21 04:00 36.8 C 71 21 115/72 98 08/03/21 03:07 67 91 08/03/21 02:00 62 90 08/03/21 01:31 63 92 08/03/21 01:28 76 16 90 08/03/21 01:10 60 98 08/03/21 01:00 68 75 L 08/03/21 00:45 70 69 L Laboratory Results Abnormal lab results 08/03/21 08/03/21 08/03/21 Range/Units 06:21 06:21 06:21 WBC 20.09 H (4.8-10.8) K/uL RDW Std Deviation 51.5 H (36.4-46.3) fL RDW Coeff of Karlene 17.1 H (11.5-14.5) % PT 23.6 H (9.0-12.0) Seconds INR 2.5 H (0.9-1.1) APTT 43.8 H (21.0-31.0) Seconds Sodium 132 L (136-145) mmol/L Chloride 94 L (98-107) mmol/L BUN 47 H (7-18) mg/dl Creatinine 1.85 H (0.6-1.4) mg/dl BUN/Creatinine Ratio 25.2 H (10-20) Glucose 103 H (70-99) mg/dl
[2021-08-03] MEDS: WARFARIN SOD 7.5 MG TAB PO SCH (16:44)
--- NOTE | 2021-08-03 16:48 | Cardiology Progress Note ---
Date of Service August 03, 2021 Assessment & Plan (1) Hypoxia: (2) Nonadherence to medication: (3) Dietary noncompliance: (4) Chest pain: (5) SOB (shortness of breath): (6) SSS (sick sinus syndrome): (7) CKD (chronic kidney disease): (8) Morbid obesity: (9) Right-sided congestive heart failure: (10) Lower extremity edema: (11) Chronic atrial fibrillation: (12) CAD (coronary artery disease): (13) OSCAR (obstructive sleep apnea): (14) Chronic back pain: (15) Cor pulmonale: (16) COVID: Plan: Patient responding to diuresis, will continue INR supratherapeutic renal function continues to improve cont current meds strict I/O's Admission and Anticipated Discharge Date Admission Date: July 28, 2021 Subjective Patient reports shortness of breath and cough continue to improve. Now with brisk diuresis. Results & Data ([facility]) Vital Signs (Past 12 Hours) Vital Signs Temp Pulse Pulse Resp BP Pulse Ox 08/03/21 15:05 79 20 95 08/03/21 14:46 36.5 C 80 22 123/85 93 08/03/21 11:39 36.5 C 93 H 18 130/85 92 08/03/21 07:08 36.6 C 82 18 138/89 96 08/03/21 06:59 75 08/03/21 06:31 84 20 94 08/03/21 05:48 83 18 98 08/03/21 05:00 77 18 96 (1) CKD (chronic kidney disease) Chronic kidney disease stage: unspecified stage Qualified Code(s): N18.9 - Chronic kidney disease, unspecified (2) Chest pain Chest pain type: unspecified Qualified Code(s): R07.9 - Chest pain, unspecified
[2021-08-03] MEDS: TAMSULOSIN HCL 0.4 MG CAP PO SCH (20:40)
[2021-08-03] MEDS: QUEtiapine FUMARATE 200 MG TAB PO SCH (22:39)
[2021-08-03] MEDS: ZOLPIDEM TARTRATE 5 MG TAB PO PRN (22:40)
[2021-08-04] MEDS: traMADol HCL 50 MG TABLET PO PRN ×2 (04:42→20:48)
[2021-08-04] MEDS: LIDOCAINE 5% 1 PATCH TD SCH (04:43)
[2021-08-04 06:59] LABS: Partial Thromboplastin Ratio 1.5; Prothrombin Time 18.8 Seconds (9.0-12.0)
[2021-08-04 07:15] LABS: BUN Creatinine Ratio 23.8 (10-20); Calcium 9.7 mg/dl (8.5-10.1); Creatinine Clr Calc Pharmacy 60.6 ml/min; Est GFR (African American) 42.1 ml/min; Est GFR (Non-African American) 36.4 ml/min; Potassium 3.7 mmol/L (3.5-5.1)
[2021-08-04] MEDS: FUROSEMIDE 40 MG/4 ML VIAL IV SCH ×2 (07:53→20:48)
[2021-08-04] MEDS: dexAMETHasone 6 MG in SYRINGE 0 ML IV SCH (07:53)
[2021-08-04] MEDS: GABAPENTIN 600 MG TAB PO SCH ×2 (07:55→20:50)
[2021-08-04] MEDS: ESCITALOPRAM OXALATE 10 MG TAB PO SCH (07:55)
[2021-08-04] MEDS: lamoTRIgine 100 MG TAB PO SCH ×2 (07:55→20:50)
[2021-08-04] MEDS: TOPIRAMATE 25 MG TAB PO SCH ×2 (07:56→20:49)
[2021-08-04] MEDS: ISOSORBIDE MONO EXTENDED REL 30 MG TABCR PO SCH (07:56)
[2021-08-04] MEDS: SPIRONOLACTONE 25 MG TAB PO SCH ×2 (07:56→20:49)
[2021-08-04] MEDS: metOLazone 2.5 MG TABLET PO SCH (07:57)
[2021-08-04] MEDS: EZETIMIBE 10 MG TABLET PO SCH (07:57)
[2021-08-04] MEDS: ROSUVASTATIN CALCIUM 20 MG TAB PO SCH (07:57)
[2021-08-04] MEDS: METOPROLOL SUCC 50MG EXT REL TAB PO SCH (07:57)
[2021-08-04] MEDS: FLUTICASONE/VILANTEROL 200/25MCG 14 PUFFS/INHALER INH SCH (07:58)
[2021-08-04] MEDS: ARIPiprazole 5 MG TAB PO SCH (07:58)
[2021-08-04] MEDS: POTASSIUM CHLORIDE CRTAB 20 MEQ TABCR PO SCH ×3 (08:00→20:54)
--- NOTE | 2021-08-04 11:43 | Cardiology Progress Note ---
Date of Service August 04, 2021 Assessment & Plan (1) Hypoxia: (2) Nonadherence to medication: (3) Dietary noncompliance: (4) Chest pain: (5) SOB (shortness of breath): (6) SSS (sick sinus syndrome): (7) CKD (chronic kidney disease): (8) Morbid obesity: (9) Right-sided congestive heart failure: (10) Lower extremity edema: (11) Chronic atrial fibrillation: (12) CAD (coronary artery disease): (13) OSCAR (obstructive sleep apnea): (14) Chronic back pain: (15) Cor pulmonale: (16) COVID: Plan: Patient responding to diuresis, will continue INR therapeutic at 2 Okay to resume previous outpatient medical regimen and discharge to home from a cardiac standpoint. Once again need for medication adherence reviewed. Admission and Anticipated Discharge Date Admission Date: July 28, 2021 Subjective Patient reports shortness of breath and cough continue to improve. Believes he is now back to his baseline clinically Results & Data ([facility]) Vital Signs (Past 12 Hours) Vital Signs Temp Pulse Pulse Resp BP Pulse Ox Pulse Ox 08/04/21 11:32 36.8 C 83 24 136/74 94 08/04/21 08:00 94 08/04/21 07:53 36.7 C 87 22 131/82 93 08/04/21 03:29 36.7 C 85 20 134/81 92 (1) CKD (chronic kidney disease) Chronic kidney disease stage: unspecified stage Qualified Code(s): N18.9 - C hronic kidney disease, unspecified (2) Chest pain Chest pain type: unspecified Qualified Code(s): R07.9 - Chest pain, unspecified
[2021-08-04] MEDS: SUCRALFATE 1 GM TAB PO SCH (12:24)
[2021-08-04] MEDS: WARFARIN SOD 7.5 MG TAB PO SCH (16:50)
--- NOTE | 2021-08-04 20:48 | Hospitalist Progress Note ---
Date of Service August 04, 2021 Assessment & Plan (1) Decompensated heart failure: Plan: Decompensated right-sided heart failure Cor pulmonale CXR showed:Cardiomegaly without evidence of acute abnormality. Last ECHO: Moderate concentric LVH. EF 55 to 60%. Abnormal wall motion consistent with pacemaker activation. Responding to diuresis. Will change to home regimen of diuresis Continue aldactone. Continue daily weights Patient has h/o poor adherence to diet/fluid management of heart failure Encourage medication and dietary compliance, discussed with the patient. I/Os, fluid restriction Low sodium diet Monitor renal function/electrolytes COVID 19 Pneumonia Acute respiratory failure with hypoxia CTA showed Bibasilar consolidative opacities are suggestive of pneumonia versus aspiration pneumonitis. Bronchial wall thickening suggestive of bronchitis. Prior granulomatous disease. Empirically started on doxycycline, Rocephin. Completed the course. Continue dexamethasone Likely may not benefit from remdesivir given onset of symptoms. Continue Nebs Chronic A. fib Sick sinus syndrome Single-chamber pacemaker INR is therapeutic today. Continue with coumadin Hyponatremia Hypokalemia secondary to diuretics Sodium 129. K is 3.7 today. Monitor H/O CAD S/P CABG Denies chest pain Continue Aspirin, Statin, Isosorbide, Metoprolol CKD III Avoid nephrotoxic agents as able Monitor renal function while on IV diuretics OSCAR On CPAP at bedtime Morbid obesity BMI 67 Hyperlipidemia On statin DVT Px: Coumadin Code Status Full Code Disposition Plan to dc home with HH when medically stable. Sodium currently low, pending improvement in his sodium level. Cardiology okay with discharge from cardiology standpoint. Admission and Anticipated Discharge Date Admission Date: July 28, 2021 Subjective Patient was lying in recliner chair, on room air, NAD, no new acute events overnight. Patient reports chronic low back pain at his baseline. Patient d enies headache/chest pain/palpitations/belly pain/other review of symptoms. Patient reports eating and moving bowels okay. Physical Exam Physical Exam: GENERAL: Alert and oriented x3. NAD, on RA. Morbidly obese. HEENT: No pallor, no icterus. Pupils equal, round and reactive to light. Oral mucosa moist. NECK: No JVD, no neck masses. HEART: S1 and S2 heard. Regular rate and rhythm. No murmur, no gallop. RESPIRATORY SYSTEM: Normal AP diameter. No accessory muscle use. No wheezing, + bibasal crackles. Decreased breath sounds. ABDOMEN: Soft, bowel sounds present, nontender, no distention. CENTRAL NERVOUS SYSTEM: No facial droop. Speech is clear. Obeys simple commands. Moves extremities. EXTREMITIES: 1-2+ BLE edema, no erythema seen. Results & Data Results & Data ([facility]) Vital Signs (Past 12 Hours) Vital Signs Temp Pulse Resp BP Pulse Ox 08/04/21 16:37 36.6 C 81 20 134/78 93 08/04/21 11:32 36.8 C 83 24 136/74 94
[2021-08-04] MEDS: TAMSULOSIN HCL 0.4 MG CAP PO SCH (20:50)
[2021-08-04] MEDS: QUEtiapine FUMARATE 200 MG TAB PO SCH ×2 (20:51→23:15)
[2021-08-04] MEDS: ZOLPIDEM TARTRATE 5 MG TAB PO PRN (23:15)
[2021-08-05] MEDS: FLUTICASONE/VILANTEROL 200/25MCG 14 PUFFS/INHALER INH SCH (07:50)
[2021-08-05] MEDS: dexAMETHasone 6 MG in SYRINGE 0 ML IV SCH (07:50)
[2021-08-05] MEDS: FUROSEMIDE 40 MG/4 ML VIAL IV SCH (07:50)
[2021-08-05] MEDS: POTASSIUM CHLORIDE CRTAB 20 MEQ TABCR PO SCH ×3 (07:50→20:35)
[2021-08-05] MEDS: GABAPENTIN 600 MG TAB PO SCH ×2 (07:52→20:35)
[2021-08-05] MEDS: ROSUVASTATIN CALCIUM 20 MG TAB PO SCH (07:52)
[2021-08-05] MEDS: ARIPiprazole 5 MG TAB PO SCH (07:52)
[2021-08-05] MEDS: SPIRONOLACTONE 25 MG TAB PO SCH ×2 (07:52→20:35)
[2021-08-05] MEDS: METOPROLOL SUCC 50MG EXT REL TAB PO SCH (07:53)
[2021-08-05] MEDS: ISOSORBIDE MONO EXTENDED REL 30 MG TABCR PO SCH (07:53)
[2021-08-05] MEDS: ESCITALOPRAM OXALATE 10 MG TAB PO SCH (07:53)
[2021-08-05] MEDS: TOPIRAMATE 25 MG TAB PO SCH ×2 (07:53→20:35)
[2021-08-05] MEDS: EZETIMIBE 10 MG TABLET PO SCH (07:53)
[2021-08-05] MEDS: lamoTRIgine 100 MG TAB PO SCH ×2 (07:54→20:35)
[2021-08-05] MEDS: LIDOCAINE 5% 1 PATCH TD SCH (07:54)
[2021-08-05] MEDS: traMADol HCL 50 MG TABLET PO PRN ×2 (07:56→21:24)
[2021-08-05 08:40] LABS: Hematocrit (blood only) 45.8 % (42-52); Hemoglobin 15.2 g/dL (14.0-18.0); Mean Corpuscular Hemoglobin 27.1 pg (25-34); Mean Corpuscular Hgb Conc 33.2 g/dL (32-36); Mean Corpuscular Volume 81.8 fL (80-100); Mean Platelet Volume 10.1 fL (7.4-10.4); Platelet Count 312 K/uL (130-400); RDW Coefficient of Variation 17.2 % (11.5-14.5); RDW Standard Deviation 51.5 fL (36.4-46.3); White Blood Count 21.59 K/uL (4.8-10.8)
[2021-08-05 08:52] LABS: INR 2.2 (0.9-1.1); Partial Thromboplastin Ratio 1.6; Partial Thromboplastin Time 41.3 Seconds (21.0-31.0)
[2021-08-05 09:11] LABS: BUN Creatinine Ratio 26.2 (10-20); Calcium 9.5 mg/dl (8.5-10.1); Creatinine Clr Calc Pharmacy 60.6 ml/min; Est GFR (African American) 42.7 ml/min; Est GFR (Non-African American) 36.8 ml/min; Potassium 3.3 mmol/L (3.5-5.1)
[2021-08-05] MEDS ORDERED: POTASSIUM CHLORIDE CRTAB 20 MEQ TABCR PO STA ×2 (09:14→12:02)
[2021-08-05] MEDS: SUCRALFATE 1 GM TAB PO SCH (11:49)
--- NOTE | 2021-08-05 12:08 | Cardiology Progress Note ---
Date of Service August 05, 2021 Assessment & Plan (1) Hypoxia: (2) Nonadherence to medication: (3) Dietary noncompliance: (4) Chest pain: (5) SOB (shortness of breath): (6) SSS (sick sinus syndrome): (7) CKD (chronic kidney disease): (8) Morbid obesity: (9) Right-sided congestive heart failure: (10) Lower extremity edema: (11) Chronic atrial fibrillation: (12) CAD (coronary artery disease): (13) OSCAR (obstructive sleep apnea): (14) Chronic back pain: (15) Cor pulmonale: (16) COVID: Plan: Patient responding to diuresis, will continue INR therapeutic at 2.2 Okay to resume previous outpatient medical regimen and discharge to home from a cardiac standpoint. Once again need for medication adherence reviewed. Admission and Anticipated Discharge Date Admission Date: July 28, 2021 Subjective Patient reports that he feels well and is back to baseline. Denies chest pain, shortness of breath, palpitations, lightheadedness, or dizziness. Results & Data ([facility]) Vital Signs (Past 12 Hours) Vital Signs Temp Pulse Pulse Pulse Resp BP Pulse Ox 08/05/21 12:00 36.7 C 79 20 113/82 91 08/05/21 08:03 36.5 C 78 22 131/87 93 08/05/21 04:14 36.5 C 70 24 124/78 96 08/05/21 01:45 77 17 (1) Chest pain Chest pain type: unspecified Qualified Code(s): R07.9 - Chest pain, unspecified (2) CKD (chronic kidney disease) Chronic kidney disease stage: unspecified stage Qualified Code(s): N18.9 - Chronic kidney disease, unspecified
[2021-08-05] MEDS: ALBUT/IPRATROP 3MG/0.5MG NEB 3 ML VIAL NEB PRN (12:58)
--- NOTE | 2021-08-05 15:52 | Hospitalist Progress Note ---
Date of Service August 05, 2021 Assessment & Plan (1) Decompensated heart failure: Plan: Decompensated right-sided heart failure Cor pulmonale CXR showed:Cardiomegaly without evidence of acute abnormality. Last ECHO: Moderate concentric LVH. EF 55 to 60%. Abnormal wall motion consistent with pacemaker activation. Responding to diuresis. Discussed with nephrology Dr. Hawk, recommends increasing torsemide to 100mg twice daily Continue aldactone. Continue daily weights Patient has h/o poor adherence to diet/fluid management of heart failure Encourage medication and dietary compliance, discussed with the patient. I/Os, fluid restriction Low sodium diet Monitor renal function/electrolytes Patient will need to follow-up with nephrology upon discharge along with cardiology. COVID 19 Pneumonia Acute respiratory failure with hypoxia CTA showed Bibasilar consolidative opacities are suggestive of pneumonia versus aspiration pneumonitis. Bronchial wall thickening suggestive of bronchitis. Prior granulomatous disease. Empirically started on doxycycline, Rocephin. Completed the course. Continue dexamethasone Likely may not benefit from remdesivir given onset of symptoms. Continue Nebs Chronic A. fib Sick sinus syndrome Single-chamber pacemaker INR is therapeutic today. Continue with coumadin Hyponatremia Hypokalemia secondary to diuretics Sodium 129. K is 3.7 today. Monitor H/O CAD S/P CABG Denies chest pain Continue Aspirin, Statin, Isosorbide, Metoprolol CKD III Avoid nephrotoxic agents as able Monitor renal function while on IV diuretics OSCAR On CPAP at bedtime Morbid obesity BMI 67 Hyperlipidemia On statin DVT Px: Coumadin Code Status Full Code Disposition Plan [place] , stable to go. Cardiology okay with discharge from cardiology standpoint. Follow-up with [facility] in 5 days upon discharge, follow-up with nephrology as well. Admission and Anticipated Discharge Date Admission Date: July 28, 2021 Subjective Patient was lying in bed, on room air, no interval change, patient reports eating and moving bowels okay. No new acute events overnight. Patient denies fever/headache/chills/shortness of breath/other review of symptoms. Physical Exam Physical Exam: GENERAL: Alert and oriented x3. NAD, on RA. Morbidly obese. HEENT: No pallor, no icterus. Pupils equal, round and reactive to light. Oral mucosa moist. NECK: No JVD, no neck masses. HEART: S1 and S2 heard. Regular rate and rhythm. No murmur, no gallop. RESPIRATORY SYSTEM: Normal AP diameter. No accessory muscle use. No wheezing, + bibasal crackles improved. Decreased breath sounds. ABDOMEN: Soft, bowel sounds present, nontender, no distention. CENTRAL NERVOUS SYSTEM: No facial droop. Speech is clear. Obeys simple commands. Moves extremities. EXTREMITIES: trace BLE edema, no erythema seen. Results & Data Results & Data ([facility]) Vital Signs (Past 12 Hours) Vital Signs Temp Pulse Pulse Resp BP Pulse Ox 08/05/21 14:22 36.7 C 79 80 18 113/82 95 08/05/21 12:58 80 18 95 08/05/21 12:00 36.7 C 79 20 113/82 91 08/05/21 08:03 36.5 C 78 22 131/87 93 08/05/21 04:14 36.5 C 70 24 124/78 96
[2021-08-05] MEDS: WARFARIN SOD 7.5 MG TAB PO SCH (15:56)
[2021-08-05] MEDS: QUEtiapine FUMARATE 200 MG TAB PO SCH (20:35)
[2021-08-05] MEDS: TAMSULOSIN HCL 0.4 MG CAP PO SCH (20:35)
[2021-08-05] MEDS ORDERED: TORSEMIDE 20 MG TAB PO SCH (21:00)
[2021-08-05] MEDS: TORSEMIDE 100 MG TAB PO SCH (21:25)
[2021-08-05] MEDS: ZOLPIDEM TARTRATE 5 MG TAB PO PRN (23:26)
[2021-08-06 06:50] LABS: Hematocrit (blood only) 48.6 % (42-52); Hemoglobin 16.1 g/dL (14.0-18.0); Mean Corpuscular Hemoglobin 27.2 pg (25-34); Mean Corpuscular Hgb Conc 33.1 g/dL (32-36); Mean Corpuscular Volume 82.1 fL (80-100); Mean Platelet Volume 10.1 fL (7.4-10.4); Platelet Count 323 K/uL (130-400); RDW Coefficient of Variation 17.2 % (11.5-14.5); RDW Standard Deviation 51.7 fL (36.4-46.3); Red Blood Count 5.92 M/uL (4.7-6.1); White Blood Count 21.44 K/uL (4.8-10.8)
[2021-08-06] MEDS: TORSEMIDE 100 MG TAB PO SCH ×2 (07:49→21:04)
[2021-08-06] MEDS: dexAMETHasone 6 MG in SYRINGE 0 ML IV SCH (07:49)
[2021-08-06] MEDS: lamoTRIgine 100 MG TAB PO SCH ×2 (07:50→21:03)
[2021-08-06] MEDS: GABAPENTIN 600 MG TAB PO SCH ×2 (07:50→21:03)
[2021-08-06] MEDS: traMADol HCL 50 MG TABLET PO PRN ×2 (07:50→21:12)
[2021-08-06] MEDS: SPIRONOLACTONE 25 MG TAB PO SCH ×2 (07:51→21:04)
[2021-08-06] MEDS: TOPIRAMATE 25 MG TAB PO SCH ×2 (07:51→21:04)
[2021-08-06] MEDS: ARIPiprazole 5 MG TAB PO SCH (07:51)
[2021-08-06] MEDS: EZETIMIBE 10 MG TABLET PO SCH (07:51)
[2021-08-06] MEDS: ESCITALOPRAM OXALATE 10 MG TAB PO SCH (07:52)
[2021-08-06] MEDS: ISOSORBIDE MONO EXTENDED REL 30 MG TABCR PO SCH (07:52)
[2021-08-06] MEDS: ROSUVASTATIN CALCIUM 20 MG TAB PO SCH (07:52)
[2021-08-06] MEDS: METOPROLOL SUCC 50MG EXT REL TAB PO SCH (07:52)
[2021-08-06] MEDS: metOLazone 2.5 MG TABLET PO SCH (07:52)
[2021-08-06] MEDS: FLUTICASONE/VILANTEROL 200/25MCG 14 PUFFS/INHALER INH SCH (07:53)
[2021-08-06 08:18] LABS: BUN Creatinine Ratio 24.1 (10-20); Calcium 9.9 mg/dl (8.5-10.1); Creatinine Clr Calc Pharmacy 52.6 ml/min; Est GFR (African American) 36.6 ml/min; Est GFR (Non-African American) 31.6 ml/min; Potassium 3.9 mmol/L (3.5-5.1)
[2021-08-06] MEDS: LIDOCAINE 5% 1 PATCH TD SCH (09:03)
[2021-08-06] MEDS: POTASSIUM CHLORIDE CRTAB 20 MEQ TABCR PO SCH ×3 (10:27→21:12)
--- NOTE | 2021-08-06 13:52 | Cardiology Progress Note ---
Date of Service August 06, 2021 Assessment & Plan (1) Hypoxia: (2) Nonadherence to medication: (3) Dietary noncompliance: (4) Chest pain: (5) SOB (shortness of breath): (6) SSS (sick sinus syndrome): (7) CKD (chronic kidney disease): (8) Morbid obesity: (9) Right-sided congestive heart failure: (10) Lower extremity edema: (11) Chronic atrial fibrillation: (12) CAD (coronary artery disease): (13) OSCAR (obstructive sleep apnea): (14) Chronic back pain: (15) Cor pulmonale: (16) COVID: Plan: Patient responding to diuresis, will continue INR therapeutic at 2.2 on 08/05/2021 Okay to resume previous outpatient medical regimen and discharge to home from a cardiac standpoint. Once again need for medication adherence reviewed. His home health agency is not able to accommodate him until August 10 given his diagnosis of Covid, will require continued hospitalization until that time but there is no need for telemetry at this point. Okay to transfer to the floor or to home once home health is available Admission and Anticipated Discharge Date Admission Date: July 28, 2021 Subjective Patient states he is feeling back to his baseline. No acute events overnight. Shortness of breath at rest is stable. Results & Data ([facility]) Vital Signs (Past 12 Hours) Vital Signs Temp Pulse Pulse Resp BP Pulse Ox 08/06/21 11:59 36.5 C 84 22 117/80 98 08/06/21 04:51 36.6 C 77 24 125/85 95 (1) Chest pain Chest pain type: unspecified Qualified Code(s): R07.9 - Chest pain, unspecified (2) CKD (chronic kidney disease) Chronic kidney disease stage: unspecified stage Qualified Code(s): N18.9 - Chronic kidney disease, unspecified
--- NOTE | 2021-08-06 14:00 | Hospitalist Progress Note ---
Date of Service August 06, 2021 Assessment & Plan (1) Decompensated heart failure: Plan: Decompensated right-sided heart failure Cor pulmonale CXR showed:Cardiomegaly without evidence of acute abnormality. Last ECHO: Moderate concentric LVH. EF 55 to 60%. Abnormal wall motion consistent with pacemaker activation. Responding to diuresis. Discussed with nephrology Dr. Hawk 08/06, recommends increasing torsemide to 100mg twice daily Continue aldactone. Continue daily weights Patient has h/o poor adherence to diet/fluid management of heart failure Encourage medication and dietary compliance, discussed with the patient. I/Os, fluid restriction Low sodium diet Monitor renal function/electrolytes Patient will need to follow-up with nephrology upon discharge along with cardiology. COVID 19 Pneumonia Acute respiratory failure with hypoxia CTA showed Bibasilar consolidative opacities are suggestive of pneumonia versus aspiration pneumonitis. Bronchial wall thickening suggestive of bronchitis. Prior granulomatous disease. Empirically started on doxycycline, Rocephin. Completed the course. Will DC dexamethasone (07/28-08/06) Likely may not benefit from remdesivir given onset of symptoms. Continue Nebs Chronic A. fib Sick sinus syndrome Single-chamber pacemaker INR is therapeutic today. Continue with coumadin Hyponatremia Hypokalemia secondary to diuretics Sodium improving K wnl Monitor H/O CAD S/P CABG Denies chest pain Continue Aspirin, Statin, Isosorbide, Metoprolol CKD III Avoid nephrotoxic agents as able Monitor renal function while on IV diuretics OSCAR On CPAP at bedtime Morbid obesity BMI 67 Hyperlipidemia On statin DVT Px: Coumadin Code Status Full Code Disposition Plan to dc home with HH , stable to go. Cardiology okay with discharge from cardiology standpoint. Follow-up with [facility] in 5 days upon discharge, follow-up with nephrology as well. Awaiting for DC. Admission and Anticipated Discharge Date Admission Date: July 28, 2021 Subjective Patient lying in bed, on room air, NAD, no new acute events overnight. Patient reports eating and moving bowels okay. Patient denies any chest pain/palpitations/dizziness/headache/fever/chills/any other review of symptoms. Physical Exam Physical Exam: GENERAL: Alert and oriented x3. NAD, on RA. Morbidly obese. HEENT: No pallor, no icterus. Pupils equal, round and reactive to light. Oral mucosa moist. NECK: No JVD, no neck masses. HEART: S1 and S2 heard. Regular rate and rhythm. No murmur, no gallop. RESPIRATORY SYSTEM: Normal AP diameter. No accessory muscle use. No wheezing, no crackles. Decreased breath sounds. ABDOMEN: Soft, bowel sounds present, nontender, no distention. CENTRAL NERVOUS SYSTEM: No facial droop. Speech is clear. Obeys simple commands. Moves extremities. EXTREMITIES: trace BLE edema, no erythema seen. Results & Data Results & Data ([facility]) Vital Signs (Past 12 Hours) Vital Signs Temp Pulse Pulse Resp BP Pulse Ox 08/06/21 11:59 36.5 C 84 22 117/80 98 08/06/21 04:51 36.6 C 77 24 125/85 95
[2021-08-06] MEDS: WARFARIN SOD 7.5 MG TAB PO SCH (16:37)
[2021-08-06] MEDS: SUCRALFATE 1 GM TAB PO SCH (16:37)
[2021-08-06] MEDS: TAMSULOSIN HCL 0.4 MG CAP PO SCH (21:04)
[2021-08-06] MEDS: QUEtiapine FUMARATE 200 MG TAB PO SCH (21:04)
[2021-08-06] MEDS: ZOLPIDEM TARTRATE 5 MG TAB PO PRN (23:24)
[2021-08-07 06:39] LABS: Hematocrit (blood only) 48.3 % (42-52); Hemoglobin 16.2 g/dL (14.0-18.0); Mean Corpuscular Hemoglobin 27.2 pg (25-34); Mean Corpuscular Hgb Conc 33.5 g/dL (32-36); Mean Platelet Volume 10.6 fL (7.4-10.4); Platelet Count 303 K/uL (130-400); RDW Coefficient of Variation 17.1 % (11.5-14.5); RDW Standard Deviation 50.5 fL (36.4-46.3); Red Blood Count 5.96 M/uL (4.7-6.1); White Blood Count 20.19 K/uL (4.8-10.8)
[2021-08-07 06:42] LABS: BUN Creatinine Ratio 27.7 (10-20); Calcium 9.9 mg/dl (8.5-10.1); Creatinine Clr Calc Pharmacy 49.5 ml/min; Est GFR (Non-African American) 29.3 ml/min; Potassium 2.9 mmol/L (3.5-5.1)
[2021-08-07] MEDS: POTASSIUM CHLORIDE CRTAB 20 MEQ TABCR PO SCH ×2 (08:00→17:50)
[2021-08-07] MEDS: TORSEMIDE 100 MG TAB PO SCH ×2 (08:01→20:37)
[2021-08-07] MEDS: SPIRONOLACTONE 25 MG TAB PO SCH ×2 (08:01→20:39)
[2021-08-07] MEDS: EZETIMIBE 10 MG TABLET PO SCH (08:01)
[2021-08-07] MEDS: traMADol HCL 50 MG TABLET PO PRN ×2 (08:01→20:42)
[2021-08-07] MEDS: ESCITALOPRAM OXALATE 10 MG TAB PO SCH (08:02)
[2021-08-07] MEDS: ROSUVASTATIN CALCIUM 20 MG TAB PO SCH (08:02)
[2021-08-07] MEDS: METOPROLOL SUCC 50MG EXT REL TAB PO SCH (08:02)
[2021-08-07] MEDS: ARIPiprazole 5 MG TAB PO SCH (08:02)
[2021-08-07] MEDS: lamoTRIgine 100 MG TAB PO SCH ×2 (08:02→20:34)
[2021-08-07] MEDS: TOPIRAMATE 25 MG TAB PO SCH ×2 (08:02→20:38)
[2021-08-07] MEDS: GABAPENTIN 600 MG TAB PO SCH ×2 (08:02→20:37)
[2021-08-07] MEDS: ISOSORBIDE MONO EXTENDED REL 30 MG TABCR PO SCH (08:03)
[2021-08-07] MEDS: FLUTICASONE/VILANTEROL 200/25MCG 14 PUFFS/INHALER INH SCH (08:04)
[2021-08-07] MEDS ORDERED: POTASSIUM CHLORIDE CRTAB 20 MEQ TABCR PO STA (08:34)
[2021-08-07] MEDS: LIDOCAINE 5% 1 PATCH TD SCH (10:05)
[2021-08-07] MEDS: SUCRALFATE 1 GM TAB PO SCH (11:56)
--- NOTE | 2021-08-07 12:55 | Nephrology Consultation ---
Date of Consultation August 07, 2021 Assessment & Plan (1) Decompensated heart failure: -He has a long history of being noncompliant to diuretics and fluid restriction, presently appears to be stable without any distress with good urine output on present combination of diuretic. However recent drop in sodium and potassium spite of being on high-dose of spironolactone and potassium supplem ents, I recommend stopping metolazone, strict adherence to 1.2 lit fluid/24. Continue on the spironolactone and potassium supplements -He needs to be seen by cardiology post discharge. His diuretic regime will change according to his fluid intake and medicine adherence, so would be his electrolytes and renal functions. (2) CKD (chronic kidney disease): Baseline creatinine is around 2.2 and he follows with Dr. Aguirre, serum creatinine is now at baseline. This will fluctuate with his fluid intake and diuretics. I suggest we titrate the diuretics to his comfort level and accept the creatinine at this level as his baseline. (3) Morbid obesity: (4) COVID: This was treated with doxycycline and Rocephin and dexamethasone -Stable no respiratory symptoms. (5) Hyponatremia: This is secondary to fluid overload which improved with diuretics, however he is on combination of loop as well as thiazide, he is also on escitalopram and Seroquel. Difficult to get balance between his fluid status and diuretics. At the moment I suggest stopping metolazone, but continuing him on 100 twice daily of torsemide and spironolactone. -Citalopram and Seroquel could also be contributing to the hyponatremia, recommend stopping these if possible. -repeat NA at 4.00 . -Care coordinated with Dr. huertas History of Present Illness Reason for Consultation: Hyponatremia, EDSON on CKD Attending Physician: Eloisa Huertas MD History of Present Illness Patient is a 60-year-old grossly obese white male resented to the ER for worsening shortness of breath and weight gain. He is CKD stage IIIb with baseline creatinine of around 2.2. Found to be grossly overloaded, and as per cardiology recommendation he was started on diuresis., he is presently on torsemide 100 bid, metalozone 2.5, spirolactone 50 BID He responded well to this with good urine output,,sCR improved to Brian 1.74 which has increased to 2.34( baseline 2.2) today. He was also mildly hyponatremic( 128-131) which initially responded to increased dose of torsemide(100 twice daily), which is now dropped to 124 WITH k OF 2.9. He was COVID + ve during this Admission He has multiple previous hospitalizations secondary to noncompliance with medications and fluid restriction requiring IV diuresis. On review, he was not in respiratory distress, amazingly no pedal edema but he is grossly obese. Feels good and had no complaints. Allergies Allergy/AdvReac Type Severity Reaction Status Date / Time morphine AdvReac Mild nausea and Verified 07/28/21 16:17 vomiting Home Medications Medication Instructions Recorded Confirmed Type albuterol sulfate 90 mcg/actuation 2 puff INHALATION QID PRN 05/04/18 07/28/21 History aerosol inhaler (ProAir HFA) gabapentin 600 mg tablet 600 mg PO BID 05/04/18 07/28/21 History isosorbide mononitrate 30 mg 30 mg PO QAM 05/04/18 07/28/21 History tablet,extended release 24 hr lamotrigine 200 mg tablet 200 mg PO BID 05/04/18 07/28/21 History (Lamictal) nitroglycerin 0.4 mg sublingual 0.4 mg SUBLINGUAL DIRECTED PRN 05/04/18 07/28/21 History tablet (Nitrostat) topiramate 25 mg tablet (Topamax) 25 mg PO BID 05/04/18 07/28/21 History zolpidem 5 mg tablet (Ambien) 5 mg PO HS PRN 05/04/18 07/28/21 History albuterol sulfate 2.5 mg INHALATION Q6 PRN 03/03/20 07/28/21 History aripiprazole 5 mg tablet (Abilify) 5 mg PO QAM 03/03/20 07/28/21 History escitalopram oxalate 10 mg tablet 10 mg PO DAILY 03/03/20 07/28/21 History (Lexapro) fluticasone 250 mcg-salmeterol 50 1 inh INHALATION BID 03/03/20 07/28/21 History mcg/dose blistr powdr for inhalation (Advair Diskus) rosuvastatin 40 mg tablet (Crestor) 40 mg PO DAILY 03/03/20 07/28/21 History metoprolol succinate 50 mg 50 mg PO DAILY 02/05/21 07/28/21 History tablet,extended release 24 hr quetiapine 200 mg tablet (Seroquel) 200 mg PO HS 02/05/21 07/28/21 History spironolactone 50 mg tablet 50 mg PO BID 02/05/21 07/28/21 History warfarin 5 mg tablet 5 mg PO UD 02/05/21 07/28/21 History ezetimibe 10 mg tablet 10 mg PO DAILY 06/24/21 07/28/21 History sucralfate 1 gram tablet 1 g PO DAILY 06/24/21 07/28/21 History tamsulosin 0.4 mg capsule 0.4 mg PO HS 06/24/21 07/28/21 History metolazone 5 mg tablet 2.5 mg PO MOWEFR #6 tab 07/05/21 07/28/21 Rx potassium chloride 20 mEq 60 meq PO TID #300 tab 07/05/21 07/28/21 Rx tablet,extended release(part/cryst) cholecalciferol (vitamin D3) 125 125 mcg PO QDD 07/28/21 07/28/21 History mcg (5,000 unit) tablet (Vitamin D3) torsemide 20 mg tablet 100 mg PO BID #300 tab 08/05/21 Rx Patient History Medical History CAD (coronary artery disease) CAD (coronary artery disease) Chronic atrial fibrillation Chronic back pain CKD (chronic kidney disease) stage 3, GFR 30-59 ml/min Cor pulmonale Depression HTN (hypertension) Hyperlipidemia Hypertension Obesities, morbid OSCAR (obstructive sleep apnea) Volume overload Surgical History S/P CABG x 4 Social History Smoking Status: Never smoker Second Hand Exposure: No; Hx Alcohol Use: No Hx Substance Use: No Preferred Language: [place] Communication Ability: Effective Hearing Ability: Normal [employer] Signal [employer] Required: No Beliefs That Will Affect Care: None marital status: Single Current Living Situation: Alone Current Living Situation Comment: fist floor appartment Feels Safe at Home: Yes Safety Concerns: Feels Safe At This Time Assistive Devices: None Review of Systems Review of Systems: Presently obese, Not in distress Trace pedal edema. Physical Exam Physical Exam: GENERAL: A middle-aged white male who is morbidly obese, not in distress he is awake, alert, oriented x3. NECK: Very obese, so cannot assess JVD. CHEST: Bilateral decreased breath sounds, occasional crackles. CARDIOVASCULAR: S1 and S2, irregular. Soft systolic murmur heard. ABDOMEN: Soft, nontender, but very distended with abdominal wall edema. EXTREMITIES:Trace LE edema Results & Data ([facility]) Vital Signs (Past 12 Hours) Vital Signs Temp Pulse Resp BP Pulse Ox 08/07/21 07:35 36.8 C 52 L 18 110/75 97 Laboratory Results 08/07/21 05:51 08/07/21 05:51 (1) CKD (chronic kidney disease) Chronic kidney disease stage: unspecified stage Qualified Code(s): N18.9 - Chronic kidney disease, unspecified
--- NOTE | 2021-08-07 13:52 | Hospitalist Progress Note ---
Date of Service August 07, 2021 Assessment & Plan (1) Decompensated heart failure: Plan: Decompensated right-sided heart failure Cor pulmonale CXR showed:Cardiomegaly without evidence of acute abnormality. Last ECHO: Moderate concentric LVH. EF 55 to 60%. Abnormal wall motion consistent with pacemaker activation. Responding to diuresis. Discussed with nephrology Dr. Hawk 08/06, recommends increasing torsemide to 100mg twice daily Continue aldactone. Continue daily weights Patient has h/o poor adherence to diet/fluid management of heart failure Encourage medication and dietary compliance, discussed with the patient. I/Os, fluid restriction Low sodium diet Monitor renal function/electrolytes Patient will need to follow-up with nephrology upon discharge along with cardiology. COVID 19 Pneumonia Acute respiratory failure with hypoxia CTA showed Bibasilar consolidative opacities are suggestive of pneumonia versus aspiration pneumonitis. Bronchial wall thickening suggestive of bronchitis. Prior granulomatous disease. Empirically started on doxycycline, Rocephin. Completed the course. Will DC dexamethasone (07/28-08/06) Likely may not benefit from remdesivir given onset of symptoms. Continue Nebs Chronic A. fib Sick sinus syndrome Single-chamber pacemaker INR is therapeutic today. Continue with coumadin Hyponatremia Hypokalemia secondary to diuretics Due to labile control of sodium and potassium level, and increasing creatinine level, nephrology was consulted Nephrology on board: Recommends discontinuing metolazone and continuing current dose of potassium supplement, torsemide, spironolactone. Also recommends discontinuing escitalopram and Seroquel if possible. For now we will continue to monitor sodium level off of metolazone, monitor closely. H/O CAD S/P CABG Denies chest pain Continue Aspirin, Statin, Isosorbide, Metoprolol CKD III Avoid nephrotoxic agents as able Monitor renal function while on IV diuretics OSCAR On CPAP at bedtime Morbid obesity BMI 67 Hyperlipidemia On statin DVT Px: Coumadin Code Status Full Code Disposition Plan to dc home with HH , stable to go. Cardiology okay with discharge from cardiology standpoint. Follow-up with [facility] in 5 days upon discharge, follow-up with nephrology as well as cardiology upon DC. Awaiting for DC. Admission and Anticipated Discharge Date Admission Date: July 28, 2021 Subjective Patient sitting up in chair, watching television,, on room air, NAD, no new acute events overnight but reports being not able to sleep even with Ambien that he takes usually. We will try melatonin today. Patient reports eating and moving bowels okay. Patient denies any chest pain/palpitations/dizziness/headache/fever/chills/any other review of symptoms. Physical Exam Physical Exam: GENERAL: Alert and oriented x3. NAD, on RA. Morbidly obese. HEENT: No pallor, no icterus. Pupils equal, round and reactive to light. Oral mucosa moist. NECK: No JVD, no neck masses. HEART: S1 and S2 heard. Regular rate and rhythm. No murmur, no gallop. RESPIRATORY SYSTEM: Normal AP diameter. No accessory muscle use. No wheezing, no crackles. Decreased breath sounds. ABDOMEN: Soft, bowel sounds present, nontender, no distention. CENTRAL NERVOUS SYSTEM: No facial droop. Speech is clear. Obeys simple commands. Moves extremities. EXTREMITIES: trace BLE edema, no erythema seen. Results & Data Results & Data ([facility]) Vital Signs (Past 12 Hours) Vital Signs Temp Pulse Resp BP Pulse Ox 08/07/21 07:35 36.8 C 52 L 18 110/75 97
[2021-08-07 16:30] LABS: BUN Creatinine Ratio 26.4 (10-20); Calcium 9.4 mg/dl (8.5-10.1); Creatinine Clr Calc Pharmacy 44.9 ml/min; Est GFR (African American) 29.8 ml/min; Est GFR (Non-African American) 25.7 ml/min
[2021-08-07 16:55] LABS: Potassium 3.5 mmol/L (3.5-5.1)
[2021-08-07] MEDS: WARFARIN SOD 7.5 MG TAB PO SCH (17:50)
[2021-08-07] MEDS: QUEtiapine FUMARATE 200 MG TAB PO SCH (20:36)
[2021-08-07] MEDS: TAMSULOSIN HCL 0.4 MG CAP PO SCH (20:39)
[2021-08-07] MEDS: MELATONIN 3 MG TAB PO SCH (20:42)
[2021-08-08] MEDS: POTASSIUM CHLORIDE CRTAB 20 MEQ TABCR PO SCH ×4 (00:57→21:29)
[2021-08-08 08:06] LABS: BUN Creatinine Ratio 28.7 (10-20); Calcium 9.6 mg/dl (8.5-10.1); Creatinine Clr Calc Pharmacy 45.3 ml/min; Est GFR (African American) 30.1 ml/min; Magnesium 2.8 mg/dl (1.8-2.4); Potassium 3.2 mmol/L (3.5-5.1)
[2021-08-08] MEDS ORDERED: POTASSIUM CHLORIDE CRTAB 20 MEQ TABCR PO STA (08:16)
[2021-08-08] MEDS: ROSUVASTATIN CALCIUM 20 MG TAB PO SCH (08:18)
[2021-08-08] MEDS: TORSEMIDE 100 MG TAB PO SCH ×2 (08:19→21:26)
[2021-08-08] MEDS: SPIRONOLACTONE 25 MG TAB PO SCH ×2 (08:19→21:27)
[2021-08-08] MEDS: lamoTRIgine 100 MG TAB PO SCH ×2 (08:19→21:26)
[2021-08-08] MEDS: METOPROLOL SUCC 50MG EXT REL TAB PO SCH (08:20)
[2021-08-08] MEDS: TOPIRAMATE 25 MG TAB PO SCH ×2 (08:20→21:25)
[2021-08-08] MEDS: ARIPiprazole 5 MG TAB PO SCH (08:21)
[2021-08-08] MEDS: GABAPENTIN 600 MG TAB PO SCH ×2 (08:21→21:26)
[2021-08-08] MEDS: ISOSORBIDE MONO EXTENDED REL 30 MG TABCR PO SCH (08:21)
[2021-08-08] MEDS: EZETIMIBE 10 MG TABLET PO SCH (08:22)
[2021-08-08] MEDS: FLUTICASONE/VILANTEROL 200/25MCG 14 PUFFS/INHALER INH SCH (08:22)
[2021-08-08] MEDS: LIDOCAINE 5% 1 PATCH TD SCH (08:24)
--- NOTE | 2021-08-08 11:31 | Nephrology Progress Note ---
Date of Service August 08, 2021 Assessment & Plan (1) Decompensated heart failure: Plan: -He has a long history of being noncompliant to diuretics and fluid restriction, presently appears to be stable without any distress with good urine output on present combination of diuretic. However recent drop in sodium and potassium inspite of being on high-dose of spironolactone and potassium supplements, I recommend stopping metolazone, strict adherence to 1.2 lit fluid/24. Continue on the spironolactone and potassium supplements - His diuretic regime will change according to his fluid intake and medicine adherence, so would be his electrolytes and renal functions. - No Changes, Sna improved. (2) CKD (chronic kidney disease): Plan: Baseline creatinine is around 2.[address] and he follows with Dr. Aguirre, serum creatinine is now at baseline. This will fluctuate with his fluid intake and diuretics. I suggest we titrate the diuretics to his comfort level and accept the creatinine at this level as his baseline. (3) Morbid obesity: (4) COVID: Plan: This was treated with doxycycline and Rocephin and dexamethasone -Stable no respiratory symptoms. (5) Hyponatremia: Plan: This is secondary to fluid overload which improved with diuretics, however he is on combination of loop as well as thiazide, he is also on escitalopram and Seroquel. Difficult to get balance between his fluid status and diuretics. At the moment I suggest stopping metolazone, but continuing him on 100 twice daily of torsemide and spironolactone. -Citalopram and Seroquel could also be contributing to the hyponatremia, recommend stopping these if possible. -repeat NA at 4.00 . -Care coordinated with Dr. huertas Admission and Anticipated Discharge Date Admission Date: July 28, 2021 Subjective Patient sitting up in chair, on room air, NAD, no new acute events overnight Review of Systems Review of Systems: Grossly obese, Not in distress Trace pedal edema. Physical Exam Physical Exam: GENERAL: A middle-aged white male who is morbidly obese, not in distress he is awake, alert, oriented x3. NECK: Very obese, so cannot assess JVD. CHEST: Bilateral decreased breath sounds, occasional crackles. CARDIOVASCULAR: S1 and S2, irregular. Soft systolic murmur heard. ABDOMEN: Soft, nontender, but very distended with abdominal wall edema. EXTREMITIES:Trace LE edema Results & Data ([facility]) Vital Signs (Past 12 Hours) Vital Signs Temp Pulse Pulse Resp BP Pulse Ox 08/08/21 08:27 92 H 08/08/21 07:17 36.7 C 47 L 20 115/73 95 08/08/21 01:17 89 19 95 Laboratory Results 08/07/21 05:51 08/08/21 06:33 (1) CKD (chronic kidney disease) Chronic kidney disease stage: unspecified stage Qualified Code(s): N18.9 - Chronic kidney disease, unspecified
--- NOTE | 2021-08-08 12:23 | Hospitalist Progress Note ---
Date of Service August 08, 2021 Assessment & Plan (1) Decompensated heart failure: Plan: Decompensated right-sided heart failure Cor pulmonale CXR showed:Cardiomegaly without evidence of acute abnormality. Last ECHO: Moderate concentric LVH. EF 55 to 60%. Abnormal wall motion consistent with pacemaker activation. Responding to diuresis. Discussed with nephrology Dr. Hawk 08/06, recommends increasing torsemide to 100mg twice daily Continue aldactone. Continue daily weights Patient has h/o poor adherence to diet/fluid management of heart failure Encourage medication and dietary compliance, discussed with the patient. I/Os, fluid restriction Low sodium diet Monitor renal function/electrolytes Patient will need to follow-up with nephrology upon discharge along with cardiology. COVID 19 Pneumonia Acute respiratory failure with hypoxia CTA showed Bibasilar consolidative opacities are suggestive of pneumonia versus aspiration pneumonitis. Bronchial wall thickening suggestive of bronchitis. Prior granulomatous disease. Empirically started on doxycycline, Rocephin. Completed the course. Will DC dexamethasone (07/28-08/06) Likely may not benefit from remdesivir given onset of symptoms. Continue Nebs Chronic A. fib Sick sinus syndrome Single-chamber pacemaker INR is therapeutic today. Continue with coumadin Hyponatremia Hypokalemia secondary to diuretics Due to labile control of sodium and potassium level, and increasing creatinine level, nephrology was consulted Nephrology on board: Recommends discontinuing metolazone and continuing current dose of potassium supplement, torsemide, spironolactone. Also recommends discontinuing escitalopram and Seroquel if possible. Metolazone discontinued, escitalopram on hold, monitor closely. H/O CAD S/P CABG Denies chest pain Continue Aspirin, Statin, Isosorbide, Metoprolol CKD III Avoid nephrotoxic agents as able Monitor renal function while on IV diuretics OSCAR On CPAP at bedtime Morbid obesity BMI 67 Hyperlipidemia On statin DVT Px: Coumadin Code Status Full Code Disposition Plan to dc home with , stable to go. Cardiology okay with discharge from cardiology standpoint. Follow-up with [facility] in 5 days upon discharge, follow-up with nephrology as well as cardiology upon DC. Awaiting for DC. Likely will discontinue escitalopram on discharge if his sodium improves off of it. Patient made aware. Admission and Anticipated Discharge Date Admission Date: July 28, 2021 Subjective Patient was lying semiupright in bed, room air, NAD, this time was not able to sleep overnight due to his CPAP machine beeping overnight, hopefully he gets his sleep coming night. Communicated with RN. Patient denies fever/headache/chills/chest pain/palpitation/other review of symptoms. Patient reports eating and moving bowels okay. Physical Exam Physical Exam: GENERAL: Alert and oriented x3. NAD, on RA. Morbidly obese. HEENT: No pallor, no icterus. Pupils equal, round and reactive to light. Oral mucosa moist. NECK: No JVD, no neck masses. HEART: S1 and S2 heard. Regular rate and rhythm. No murmur, no gallop. RESPIRATORY SYSTEM: Normal AP diameter. No accessory muscle use. No wheezing, no crackles. Decreased breath sounds. ABDOMEN: Soft, bowel sounds present, nontender, no distention. CENTRAL NERVOUS SYSTEM: No facial droop. Speech is clear. Obeys simple commands. Moves extremities. EXTREMITIES: trace BLE edema, no erythema seen. Results & Data Results & Data ([facility]) Vital Signs (Past 12 Hours) Vital Signs Temp Pulse Pulse Resp BP Pulse Ox 08/08/21 08:27 92 H 08/08/21 07:17 36.7 C 47 L 20 115/73 95 08/08/21 01:17 89 19 95
[2021-08-08] MEDS: SUCRALFATE 1 GM TAB PO SCH (13:26)
[2021-08-08] MEDS: traMADol HCL 50 MG TABLET PO PRN (13:47)
[2021-08-08] MEDS: WARFARIN SOD 7.5 MG TAB PO SCH (17:46)
[2021-08-08] MEDS: QUEtiapine FUMARATE 200 MG TAB PO SCH (21:25)
[2021-08-08] MEDS: TAMSULOSIN HCL 0.4 MG CAP PO SCH (21:26)
[2021-08-08] MEDS: MELATONIN 3 MG TAB PO SCH (21:27)
[2021-08-09 07:16] LABS: Hematocrit (blood only) 46.5 % (42-52); Hemoglobin 15.5 g/dL (14.0-18.0); Mean Corpuscular Hemoglobin 27.1 pg (25-34); Mean Corpuscular Hgb Conc 33.3 g/dL (32-36); Mean Corpuscular Volume 81.4 fL (80-100); Mean Platelet Volume 10.5 fL (7.4-10.4); Platelet Count 232 K/uL (130-400); Red Blood Count 5.71 M/uL (4.7-6.1); White Blood Count 16.81 K/uL (4.8-10.8)
[2021-08-09] MEDS: EZETIMIBE 10 MG TABLET PO SCH (09:02)
[2021-08-09] MEDS: GABAPENTIN 600 MG TAB PO SCH (09:02)
[2021-08-09] MEDS: ARIPiprazole 5 MG TAB PO SCH (09:03)
[2021-08-09] MEDS: SPIRONOLACTONE 25 MG TAB PO SCH (09:03)
[2021-08-09] MEDS: METOPROLOL SUCC 50MG EXT REL TAB PO SCH (09:04)
[2021-08-09] MEDS: TOPIRAMATE 25 MG TAB PO SCH (09:05)
[2021-08-09] MEDS: ISOSORBIDE MONO EXTENDED REL 30 MG TABCR PO SCH (09:05)
[2021-08-09] MEDS: TORSEMIDE 100 MG TAB PO SCH (09:06)
[2021-08-09] MEDS: lamoTRIgine 100 MG TAB PO SCH (09:06)
[2021-08-09] MEDS: ROSUVASTATIN CALCIUM 20 MG TAB PO SCH (09:06)
[2021-08-09] MEDS: LIDOCAINE 5% 1 PATCH TD SCH (09:09)
[2021-08-09] MEDS: FLUTICASONE/VILANTEROL 200/25MCG 14 PUFFS/INHALER INH SCH (09:09)
[2021-08-09 09:10] LABS: BUN Creatinine Ratio 28.4 (10-20); Calcium 9.4 mg/dl (8.5-10.1); Creatinine Clr Calc Pharmacy 54.1 ml/min; Est GFR (African American) 36.8 ml/min; Est GFR (Non-African American) 31.8 ml/min; Potassium 3.6 mmol/L (3.5-5.1)
[2021-08-09] MEDS: POTASSIUM CHLORIDE CRTAB 20 MEQ TABCR PO SCH (09:14)
--- NOTE | 2021-08-09 17:49 | Discharge Summary ---
Date of Service August 09, 2021 Admission HPI Per Admitting Provider Patient is a 60-year-old male with history of chronic right-sided heart failure, obstructive sleep apnea on BiPAP, COPD, coronary artery disease S/P CABG, sick sinus syndrome S/P PPM, hypertension, hyperlipidemia, CKD stage III, GERD, chronic atrial fibrillation on anticoagulation with Coumadin, morbid obesity chronic low back pain and other medical problems presents with history of worsening shortness of breath, leg edema and weight gain since about 2 weeks duration. He states that his dyspnea is chronic for the last few months but gradually worsening since especially last 10 days. He was evaluated [facility] today and was found to be hypoxic at 86% on room air and was suggested to visit ED for further evaluation. Admits to using his home nebulizers more frequently lately. He reports that he gained about 20 to 30 pounds in last 2 weeks. He states having dry cough since last few days. He is vaccinated against Covid 19 x 3. Denies any history of chest pain, palpitations, dizziness, hemoptysis, fever, chills, headache, change in vision, nausea, vomiting, abdominal pain, diarrhea, dysuria, hematuria, recent change in medications. He admits to taking his med home medications regularly. He uses CPAP at bedtime. Admission Exam Per Admitting Provider Physical Exam: Vitals signs as noted above General Appearance:Morbidly Obese, no apparent distress Head: normocephalic, Atraumatic Eyes: normal inspection, EOMI Neck: supple, Trachea midline Respiratory/Chest: Decreased breath sounds, B/L wheezing, No accessory muscle use Cardiovascular: S1, S2, No murmur Abdomen/GI:Soft, Non tender, Distended, Bowel sounds present Extremities/Musculoskeletal:normal inspection, 3+ B/L LE edema Neurologic/Psych:AAOX3, grossly no focal neurological deficits Skin: normal color, warm Principal Diagnosis Acute and chronic CHF/HFpEF Pneumonia due to COVID-19 virus infection. Hyponatremia and hypokalemia. Discharge Exam GENERAL: Alert and oriented x3. NAD, on RA. Morbidly obese. HEENT: No pallor, no icterus. Pupils equal, round and reactive to light. Oral mucosa moist. NECK: No JVD, no neck masses. HEART: S1 and S2 heard. Regular rate and rhythm. No murmur, no gallop. RESPIRATORY SYSTEM: Normal AP diameter. No accessory muscle use. No wheezing, no crackles. Decreased breath sounds. ABDOMEN: Soft, bowel sounds present, nontender, no distention. CENTRAL NERVOUS SYSTEM: No facial droop. Speech is clear. Obeys simple commands. Moves extremities. EXTREMITIES: trace BLE edema, no erythema seen. Discharge Data Allergies Allergy/AdvReac Type Severity Reaction Status Date / Time morphine AdvReac Mild nausea and Verified 07/28/21 16:17 vomiting Consultations 07/28/21 17:15 ED Decision to Admit Stat 07/29/21 08:00 Consult Cardiology Routine 08/07/21 08:33 Consult Nephrology Routine Ordered Studies 07/28/21 17:00 CT angio chest PE protocol Stat Hospital Course (1) Decompensated heart failure: 60-year-old male with history of chronic right-sided heart failure, obstructive sleep apnea on BiPAP, COPD, coronary artery disease S/P CABG, sick sinus syndrome S/P PPM, hypertension, hyperlipidemia, CKD stage III, GERD, chronic atrial fibrillation on anticoagulation with Coumadin, morbid obesity chronic low back pain presented 07/28/21 w/ history of worsening shortness of breath, leg edema and weight gain since about 2 weeks duration [employer]. He was managed for the following: Decompensated right-sided heart failure Cor pulmonale CXR showed:Cardiomegaly without evidence of acute abnormality. Last ECHO: Moderate concentric LVH. EF 55 to 60%. Abnormal wall motion consistent with pacemaker activation. Responding to diuresis. Discussed with nephrology Dr. Hawk 08/06, recommends increasing torsemide to 100mg twice daily Continue aldactone. Continue daily weights Patient has h/o poor adherence to diet/fluid management of heart failure Encourage medication and dietary compliance, discussed with the patient. I/Os, fluid restriction Low sodium diet Monitor renal function/electrolytes Patient will need to follow-up with nephrology upon discharge along with cardiology. COVID 19 Pneumonia Acute respiratory failure with hypoxia CTA showed Bibasilar consolidative opacities are suggestive of pneumonia versus aspiration pneumonitis. Bronchial wall thickening suggestive of bronchitis. Prior granulomatous disease. Empirically started on doxycycline, Rocephin. Completed the course. Will DC dexamethasone (07/28-08/06) Likely may not benefit from remdesivir given onset of symptoms. Continue Nebs Chronic A. fib Sick sinus syndrome Single-chamber pacemaker INR is therapeutic today. Continue with coumadin Hyponatremia Hypokalemia secondary to diuretics Due to labile control of sodium and potassium level, and increasing creatinine level, nephrology was consulted Nephrology on board: Recommends discontinuing metolazone and continuing current dose of potassium supplement, torsemide, spironolactone. Also recommends d iscontinuing escitalopram and Seroquel if possible. Metolazone discontinued, escitalopram DC'd, Pt made aware, BMP in a week of discharge H/O CAD S/P CABG Denies chest pain Continue Aspirin, Statin, Isosorbide, Metoprolol CKD III Avoid nephrotoxic agents as able Monitor renal function while on IV diuretics OSCAR On CPAP at bedtime Morbid obesity BMI 67 Hyperlipidemia On statin DVT Px: Coumadin Code Status Full Code Disposition Plan to dc home with HH , stable to go. Cardiology okay with discharge from cardiology standpoint. Follow-up with BMP in 5 days upon discharge, follow-up with nephrology as well as cardiology upon DC. Awaiting for DC. Patient being discharged home with home health with following instruction at the point of discharge: Follow-up with your primary care physician within a week time. Follow-up with cardiology as an outpatient upon discharge in a week time. After discussion with nephrology, your torsemide dose has been increased to 100 mg twice a day, metolazone and Lexapro has been stopped for concerns of hyponatremia: ~Get your blood work Magnesium and BMP done in a week time. ~Follow-up with your kidney doctor in 1 to 2 weeks upon discharge. This is strongly advised. ~Heart healthy diet, low-sodium [2 g] diet, fluid restriction to 1800 mL a day. Take medications as prescribed. As discussed at the bedside multiple times, adhere with heart healthy/low-sodium diet [less than 2 g sodium a day] and fluid restriction of less than 1800 mL a day. Encourage medication compliance. Avoid fries and carbonated drinks as discussed at the bedside. Since you are diagnosed with Covid on 07/28/2021, you are off of isolation. Instructions for heart failure management at home. Total Time Total Time Spent Total Time Spent (In Minutes): 40 Discharge Plan Discharge Items Patient Disposition: Home - Home Health Services Reason For Visit: HYPOXIA, SOB Discharge Diagnosis: Acute and chronic CHF/HFpEF Pneumonia due to COVID-19 virus infection. Hyponatremia and hypokalemia. Activity: Resume your previous activity Non-emergency contact: Primary Care Provider Call non-emergency contact if: you have any medication questions, your symptoms worsen and your temperature is above 101 Follow-up/Referrals: [facility] [Other] (Date & Time 08/11/2021 2:30 PM Provider Primo Higgins MD Department [facility], [facility] ) Moi Calles MD [Surgeon] - (Date & Time 10/08/2021 3:40 PM Provider Moi Calles MD Department Nephrology, [facility] ) Jp Morillo MD [Primary Care Provider] - 08/13/21 10:00 am (Date & Time 08/13/2021 10:00 AM Provider Jp Morillo MD Department [facility] PLEASE NOTE THAT THIS IS A TELEMEDICINE APPOINTMENT. PLEASE FOLLOW THE INSTRUCTIONS PROVIDED IN YOUR EMAIL. IF YOU HAVE ANY QUESTIONS REGARDING THIS APPOINTMENT, PLEASE CALL ) Jessica Washburn CRNP [Nurse Practitioner] - 08/13/21 2:00 pm (Date & Time 08/13/2021 2:00 PM Provider MISAEL Zaman Department Cardiology, [facility] ) Diet: Heart Healthy and Low Sodium (2gm) Fluids: 1800ml (7 cups) Diet Texture: Easy to Chew Addtl Attending Provider Instructions: Follow-up with your primary care physician within a week time. Follow-up with cardiology as an outpatient upon discharge in a week time. After discussion with nephrology, your torsemide dose has been increased to 100 mg twice a day, metolazone and Lexapro has been stopped for concerns of hyponatremia: ~Get your blood work Magnesium and BMP done in a week time. ~Follow-up with your kidney doctor in 1 to 2 weeks upon discharge. This is strongly advised. ~Heart healthy diet, low-sodium [2 g] diet, fluid restriction to 1800 mL a day. Take medications as prescribed. As discussed at the bedside multiple times, adhere with heart healthy/low-sodium diet [less than 2 g sodium a day] and fluid restriction of less than 1800 mL a day. Encourage medication compliance. Avoid fries and carbonated drinks as discussed at the bedside. Since you are diagnosed with Covid on 07/28/2021, you are off of isolation. Following are the instruction for self-isolation and also instructions for heart failure management at home. Call 911 and go to the Emergency Room if: * You have tightness or pain in your chest that does not go away with rest or Nitroglycerin * You are very short of breath even with rest Call your doctor if any of the following symptoms or problems start or get worse: * Shortness of breath or difficulty breathing * Wake up at night short of breath * Chest pain * Cough * Swelling of your hands, fee, or legs * More fatigued or tired with your normal activity * Palpitations - sudden fast heart beats WEIGHT * Weigh yourself every morning after using the bathroom. * Use the same scale. * Wear the same amount of clothing. * Write your weight down on your chart. * Call your doctor if you gain more than 2-3 pounds in 1-2 days. MEDICATIONS * Use this discharge instruction sheet for instructions. * Take your medications at the time your doctor ordered. * Do not skip a dose of your medicines. * If you miss a dose of medicine, take as soon as possible, but DO NOT DOUBLE A DOSE. * Read your medicine information when you get home. * Know all of the side effects of your medicine. * Call your doctor's office if you have any side effects. * Be sure all of your doctors know what medicine and herbs you take (including cold, flu, and herbal medicine). * Pain Medicine: If you do not get relief from your pain, please call your doctor for help. Take the following with you to your follow-up doctor appointments: * Weight Chart * Medication List * List of questions Do not drink alcohol, beer or wine at all. Pending Studies at Discharge: No Stand-Alone Forms: [facility], Smoking Cessation Medications and DC Order Prescriptions: New torsemide 20 mg Tablet 100 mg PO BID Qty: 300 RF: 0 Continued gabapentin 600 mg Tablet 600 mg PO BID RF: 0 lamotrigine [Lamictal] 200 mg Tablet 200 mg PO BID RF: 0 isosorbide mononitrate 30 mg Tablet Extended Release 24 Hr 30 mg PO QAM RF: 0 topiramate [Topamax] 25 mg Tablet 25 mg PO BID RF: 0 nitroglycerin [Nitrostat] 0.4 mg Tablet, Sublingual 0.4 mg Sublingual DIRECTED PRN (Reason: Chest Pain) RF: 0 zolpidem [Ambien] 5 mg Tablet 5 mg PO HS PRN (Reason: Sleep) RF: 0 albuterol sulfate [ProAir HFA] 90 mcg/actuation Hfa Aerosol Inhaler 2 puff INHALATION QID PRN (Reason: Shortness Of Breath Or Wheezing) RF: 0 fluticasone propion-salmeterol [Advair Diskus] 250-50 mcg/dose Blister With Device 1 inh INHALATION BID RF: 0 albuterol sulfate 2.5 mg /3 mL (0.083 %) Solution For Nebulization 2.5 mg INHALATION Q6 PRN (Reason: Shortness Of Breath Or Wheezing) RF: 0 aripiprazole [Abilify] 5 mg tablet 5 mg PO QAM RF: 0 rosuvastatin [Crestor] 40 mg tablet 40 mg PO DAILY RF: 0 metoprolol succinate 50 mg tablet extended release 24 hr 50 mg PO DAILY RF: 0 spironolactone 50 mg tablet 50 mg PO BID RF: 0 warfarin 5 mg tablet 5 mg PO UD RF: 0 quetiapine [Seroquel] 200 mg tablet 200 mg PO HS RF: 0 cholecalciferol (vitamin D3) [Vitamin D3] 125 mcg (5,000 unit) Tablet 125 mcg PO QDD RF: 0 sucralfate 1 gram tablet 1 g PO DAILY RF: 0 tamsulosin 0.4 mg capsule 0.4 mg PO HS RF: 0 ezetimibe 10 mg tablet 10 mg PO DAILY RF: 0 metolazone 5 mg tablet 2.5 mg PO MOWEFR Qty: 6 RF: 0 potassium chloride 20 mEq tablet,ER particles/crystals 60 meq PO TID Qty: 300 RF: 0 Discontinued escitalopram oxalate [Lexapro] 10 mg tablet 10 mg PO DAILY RF: 0 torsemide 20 mg tablet 80 mg PO BID Qty: 240 RF: 1 Discharge Orders: Discharge Order (Routine); Ordered 08/09/21 Ordered By: Eloisa Berg Admission Data Admit Date/Time: 07/28/21 18:31 Attending Provider: Eloisa Berg Admit Provider: Bear Smith Primary Care Provider: Jp Morillo Other Providers: Maryann Montanez I. ; Bear Smith ; Steven Ariza ; Juan J Hawk ; [place] Other Interventions: Discharge Summary Assessment (RN) Last Done: 08/09/21 12:37
== END 2021-08-09 13:30 | disposition home health service (06) | DRG 291 ==
LOC: ED 15:25 → EDINP 18:31 → SUATTDRO 18:31 → EDINP 07-29 04:49 → 2S 07-29 20:19 → 2W 08-07 19:01

== ENCOUNTER 2021-09-27 11:27 | Inpatient (IN) ==
[2021-09-27 12:31] LABS: Basophils # (auto) 0.07 K/uL (0-0.2); Basophils % (auto) 0.5 %; Eosinophils # (auto) 0.25 K/uL (0-0.5); Eosinophils % (auto) 1.8 %; Hematocrit (blood only) 38.6 % (42-52); Hemoglobin 12.2 g/dL (14.0-18.0); Immature Granulocytes # (auto) 0.24 K/uL (0.00-0.02); Immature Granulocytes % (auto) 1.7 %; Lymphocytes % (auto) 14.9 %; Mean Corpuscular Hemoglobin 26.9 pg (25-34); Mean Corpuscular Hgb Conc 31.6 g/dL (32-36); Mean Corpuscular Volume 85.2 fL (80-100); Mean Platelet Volume 10.2 fL (7.4-10.4); Monocytes # (auto) 1.37 K/uL (0.11-0.59); Monocytes % (auto) 9.7 %; Neutrophils # (auto) 10.03 K/uL (1.4-6.5); Neutrophils % (auto) 71.4 %; Platelet Count 235 K/uL (130-400); RDW Coefficient of Variation 18.4 % (11.5-14.5); RDW Standard Deviation 57.2 fL (36.4-46.3); Red Blood Count 4.53 M/uL (4.7-6.1); White Blood Count 14.06 K/uL (4.8-10.8)
--- NOTE | 2021-09-27 12:35 | Emergency Department Note ---
Impression & Plan SOB (shortness of breath), Fluid overload, Bilateral edema of lower extremity ED Provider Note INFORMANT: Patient ED PROVIDER(S): Henrik Steven MD CHIEF COMPLAINT: PLAN: Disposition: Admitted Condition: Good Outpatient prescription management: none Referral: None MEDICAL DECISION MAKING: Patient presented to the emergency department because of shortness of breath. Patient had physical findings concerning for CHF. The patient's chest x-ray showed cardiomegaly. He had an elevated troponin and creatinine. His D-dimer was minimally elevated. INR was subtherapeutic. The patient had an unremarkable BNP. Covid is negative. Ultrasound imaging of the lower extremities is negative. IV Lasix was given. Consultation was made with [facility]. Patient was evaluated in the ER for further management Triage Nursing notes reviewed and agree them. Vital Signs: reviewed and remarkable for mild hypoxia Differential diagnosis: Reactive airway disease, pneumonia, pneumothorax, COPD, CHF, infections, cardiac ischemia, pulmonary embolism, musculoskeletal, gastrointestinal, as well as other pathologies. Diagnostics interpreted by me: ECG: Twelve-lead ECG reveals atrial fibrillation at 77 bpm. Paced complexes present as well. No acute ST elevation noted. Monitoring: Cardiac monitoring ordered by me: The patient was placed on continuous cardiac monitoring and observed. It revealed atrial fibrillation at 81 bpm. Imaging studies: Chest x-ray and ultrasound imaging as noted above. I refer you to the EMR for further details. HPI: The patient is a 61 year old male who presents to the Emergency Room with complaints of shortness of breath. This started a few weeks ago and is worsening over the last week. The patient also notes the following associated symptoms, difficulty breathing, leg swelling, about a 9 pound weight gain over the last week. The patient has received 2 doses of IV Lasix last week for relieving factors. Current pain is rated as 0/10. Patient has history of heart failure. He did note missing a dose of Lasix this weekend. He was seen by [facility] and referred to the ER due to symptoms, weight gain, and lack of response to the IV Lasix. Pt denies LOC, headache, fevers, chills, diaphoresis, visual changes, neck pain, chest pain, nausea, vomiting, abdominal pain, back pain, melena, hematochezia, urinary symptoms, numbness, weakness, lymphadenopathy, rash, or other complaints. ROS: See above HPI for pertinent positives & negatives. A total of 10 systems reviewed and were otherwise negative. PAST MEDICAL HISTORY:See Below , CHF PAST SURGICAL HISTORY:See Below, Mediport right upper chest FAMILY HISTORY:See Below SOCIAL HISTORY:See Below, non-smoker HOME MEDICATIONS:See Below ALLERGIES:See Below VITALS:See Below PHYSICAL EXAMINATION: GENERAL: Awake, alert, mildly dyspneic-appearing, in no distress HENT: Normocephalic, atraumatic. Oropharynx unremarkable. EYES: Normal conjunctiva. Sclera non-icteric. NECK: Inspection normal. Non-tender. Supple. No nuchal rigidity. FROM. No masses. RESPIRATORY: Diminished in the bases with few rales otherwise clear to a uscultation. No wheezes. . Mildly increased respiratory effort. CARDIAC: Normal rate. Normal rhythm. No murmurs. No rubs. Extremities warm and well perfused. Pulses equal. No JVD. GI: Soft, non-distended. No tenderness to palpation. No rebound or guarding. No masses. RECTAL: Deferred. MUSCULOSKELETAL: Atraumatic. Chest examination reveals no tenderness. The back is symmetrical on inspection without obvious abnormality. There is no CVA tenderness to palpation. No joint edema. LOWER EXTREMITIES: Calves are equal size bilaterally and non-tender. 2-3+ edema. No discoloration. NEURO: Normal sensorium. No sensory or motor deficits noted. SKIN: No rash or jaundice noted. Henrik Steven MD Past Med/Surg History Medical History CAD (coronary artery disease) CAD (coronary artery disease) Chronic atrial fibrillation Chronic back pain CKD (chronic kidney disease) stage 3, GFR 30-59 ml/min Cor pulmonale Depression HTN (hypertension) Hyperlipidemia Hypertension Obesities, morbid OSCAR (obstructive sleep apnea) Volume overload Surgical History S/P CABG x 4 Social History Smoking Status: Never smoker Second Hand Exposure: No; Hx Alcohol Use: No Hx Substance Use: No Preferred Language: Hungarian Communication Ability: Effective Hearing Ability: Normal Unit [employer] Required: No Beliefs That Will Affect Care: None marital status: Single Current Living Situation: Alone Current Living Situation Comment: fist floor appartment Feels Safe at Home: Yes Assistive Devices: None Allergies Allergies Allergy/AdvReac Type Severity Reaction Status Date / Time morphine AdvReac Mild nausea and Verified 09/27/21 12:25 vomiting Home Meds Home Medications Medication Instructions Recorded Confirmed albuterol sulfate 90 mcg/actuation 2 puff INHALATION QID PRN 05/04/18 09/27/21 aerosol inhaler (ProAir HFA) gabapentin 600 mg tablet 600 mg PO BID 05/04/18 09/27/21 isosorbide mononitrate 30 mg 30 mg PO QAM 05/04/18 09/27/21 tablet,extended release 24 hr lamotrigine 200 mg tablet 200 mg PO BID 05/04/18 09/27/21 (Lamictal) nitroglycerin 0.4 mg sublingual 0.4 mg SUBLINGUAL DIRECTED PRN 05/04/18 09/27/21 tablet (Nitrostat) topiramate 25 mg tablet (Topamax) 25 mg PO BID 05/04/18 09/27/21 zolpidem 5 mg tablet (Ambien) 5 mg PO HS PRN 05/04/18 09/27/21 albuterol sulfate 2.5 mg INHALATION Q6 PRN 03/03/20 09/27/21 aripiprazole 5 mg tablet (Abilify) 5 mg PO QAM 03/03/20 09/27/21 fluticasone 250 mcg-salmeterol 50 1 inh INHALATION BID 03/03/20 09/27/21 mcg/dose blistr powdr for inhalation (Advair Diskus) rosuvastatin 40 mg tablet (Crestor) 40 mg PO DAILY 03/03/20 09/27/21 metoprolol succinate 50 mg 50 mg PO DAILY 02/05/21 09/27/21 tablet,extended release 24 hr quetiapine 200 mg tablet (Seroquel) 200 mg PO HS 02/05/21 09/27/21 spironolactone 50 mg tablet 50 mg PO BID 02/05/21 09/27/21 warfarin 5 mg tablet 5 mg PO UD 02/05/21 09/27/21 ezetimibe 10 mg tablet 10 mg PO DAILY 06/24/21 09/27/21 tamsulosin 0.4 mg capsule 0.4 mg PO HS 06/24/21 09/27/21 cholecalciferol (vitamin D3) 125 125 mcg PO QDD 07/28/21 09/27/21 mcg (5,000 unit) tablet (Vitamin D3) Previous Rx's Medication Instructions Recorded metolazone 5 mg tablet 2.5 mg PO MOWEFR #6 tab 07/05/21 potassium chloride 20 mEq 60 meq PO TID #300 tab 07/05/21 tablet,extended release(part/cryst) torsemide 20 mg tablet 100 mg PO BID #300 tab 08/05/21 Results & Data (ED) Vital Signs Vital Signs - 24 hr 09/27/21 12:00 09/27/21 12:09 09/27/21 12:30 Temperature 36.8 C Temperature Source Oral Pulse Rate 90 79 76 Pulse Rate [Apical] Pulse Rate from SpO2 Sensor 80 Respiratory Rate 26 H 20 21 Respiratory Effort / Characteristics Pursed Lip Respiratory Depth Shallow Respiratory Pattern Tachypnea Blood Pressure 103/65 Blood Pressure [Right Arm] Blood Pressure Mean 77 Blood Pressure Mean [Right Arm] Blood Pressure Position Semi-fowlers Blood Pressure Position [Right Arm] Pulse Oximetry 94 90 Oxygen Delivery Method Room Air Sepsis Recent Fever Within 48 Hours No Sepsis New/Unexplained Change in Mental Status N/A Sepsis Action Taken by Nursing No Action Required 09/27/21 13:00 09/27/21 13:30 09/27/21 14:00 Temperature Temperature Source Pulse Rate 81 73 77 Pulse Rate [Apical] Pulse Rate from SpO2 Sensor 79 79 80 Respiratory Rate 18 22 16 Respiratory Effort / Characteristics Respiratory Depth Respiratory Pattern Blood Pressure Blood Pressure [Right Arm] Blood Pressure Mean Blood Pressure Mean [Right Arm] Blood Pressure Position Blood Pressure Position [Right Arm] Pulse Oximetry 93 91 85 L Oxygen Delivery Method Sepsis Recent Fever Within 48 Hours Sepsis New/Unexplained Change in Mental Status Sepsis Action Taken by Nursing 09/27/21 14:30 09/27/21 14:50 09/27/21 15:00 Temperature Temperature Source Pulse Rate 73 Pulse Rate [Apical] 89 Pulse Rate from SpO2 Sensor 89 76 Respiratory Rate 20 20 18 Respiratory Effort / Characteristics Non-Labored Spontaneous Respiratory Depth Normal Respiratory Pattern Regular Blood Pressure 103/79 Blood Pressure [Right Arm] 136/78 Blood Pressure Mean 87 Blood Pressure Mean [Right Arm] 97 Blood Pressure Position Blood Pressure Position [Right Arm] Sitting Pulse Oximetry 83 L 89 L 91 Oxygen Delivery Method Room Air Sepsis Recent Fever Within 48 Hours Sepsis New/Unexplained Change in Mental Status Sepsis Action Taken by Nursing 09/27/21 16:40 Temperature Temperature Source Pulse Rate Pulse Rate [Apical] Pulse Rate from SpO2 Sensor Respiratory Rate Respiratory Effort / Characteristics Respiratory Depth Respiratory Pattern Blood Pressure Blood Pressure [Right Arm] 128/66 Blood Pressure Mean Blood Pressure Mean [Right Arm] 86 Blood Pressure Position Blood Pressure Position [Right Arm] Sitting Pulse Oximetry Oxygen Delivery Method Sepsis Recent Fever Within 48 Hours Sepsis New/Unexplained Change in Mental Status Sepsis Action Taken by Nursing Laboratory Data Result diagrams: 09/27/21 12:09/27/21 12: Lab Results 09/27/21 09/27/21 09/27/21 Range/Units 12: 12: 12: WBC 14.06 H (4.8-10.8) K/uL RBC 4.53 L (4.7-6.1) M/uL Hgb 12.2 L (14.0-18.0) g/dL Hct 38.6 L (42-52) % MCV 85.2 (80-100) fL MCH 26.9 (25-34) pg MCHC 31.6 L (32-36) g/dL RDW Std Deviation 57.2 H (36.4-46.3) fL RDW Coeff of Karlene 18.4 H (11.5-14.5) % Plt Count 235 (130-400) K/uL MPV 10.2 (7.4-10.4) fL Immature Gran % (Auto) 1.7 % Neut % (Auto) 71.4 % Lymph % (Auto) 14.9 % [place] % (Auto) 9.7 % Eos % (Auto) 1.8 % Baso % (Auto) 0.5 % Neut # (Auto) 10.03 H (1.4-6.5) K/uL Lymph # (Auto) 2.10 (1.2-3.4) K/uL [place] # (Auto) 1.37 H (0.11-0.59) K/uL Eos # (Auto) 0.25 (0-0.5) K/uL Baso # (Auto) 0.07 (0-0.2) K/uL Immature Gran # (Auto) 0.24 H (0.00-0.02) K/uL PT (9.0-12.0) Seconds INR (0.9-1.1) D-Dimer 610 H* (0-500) ug/L FEU Sodium 131 L (136-145) mmol/L Potassium 4.7 (3.5-5.1) mmol/L Chloride 92 L (98-107) mmol/L Carbon Dioxide 34 H (21-32) mmol/L Anion Gap 5 (3-11) BUN 31 H (6-23) mg/dl Creatinine 2.08 H (0.6-1.4) mg/dl Est Cr Clr Drug Dosing 58.9 ml/min Est GFR ( Amer) 38.9 ml/min Est GFR (Non-Af Amer) 33.6 ml/min BUN/Creatinine Ratio 14.9 (10-20) Glucose 88 (70-99(Fasting)) mg/dl Calcium 9.6 (8.5-10.1) mg/dl Magnesium 2.3 (1.7-2.4) mg/dl Total Bilirubin 0.4 (0.2-1.0) mg/dl AST 26 (13-39) U/L ALT 29 (7-52) U/L Alkaline Phosphatase 126 H (34-104) U/L Troponin I 0.20 H* (0-0.04) ng/ml B-Natriuretic Peptide (0-100) pg/ml Total Protein 6.5 (6.0-8.3) gm/dl Albumin 3.7 (3.4-5.0) gm/dl Globulin 2.8 (2.5-4.0) gm/dl Albumin/Globulin Ratio 1.3 (0.9-2) SARS-CoV-2, RNA, NAAT (NEGATIVE) 09/27/21 09/27/21 09/27/21 Range/Units 12:21 12:21 12:46 WBC (4.8-10.8) K/uL RBC (4.7-6.1) M/uL Hgb (14.0-18.0) g/dL Hct (42-52) % MCV (80-100) fL MCH (25-34) pg MCHC (32-36) g/dL RDW Std Deviation (36.4-46.3) fL RDW Coeff of Karlene (11.5-14.5) % Plt Count (130-400) K/uL MPV (7.4-10.4) fL Immature Gran % (Auto) % Neut % (Auto) % Lymph % (Auto) % [place] % (Auto) % Eos % (Auto) % Baso % (Auto) % Neut # (Auto) (1.4-6.5) K/uL Lymph # (Auto) (1.2-3.4) K/uL [place] # (Auto) (0.11-0.59) K/uL Eos # (Auto) (0-0.5) K/uL Baso # (Auto) (0-0.2) K/uL Immature Gran # (Auto) (0.00-0.02) K/uL PT 12.2 H (9.0-12.0) Seconds INR 1.2 H (0.9-1.1) D-Dimer (0-500) ug/L FEU Sodium (136-145) mmol/L Potassium (3.5-5.1) mmol/L Chloride (98-107) mmol/L Carbon Dioxide (21-32) mmol/L Anion Gap (3-11) BUN (6-23) mg/dl Creatinine (0.6-1.4) mg/dl Est Cr Clr Drug Dosing ml/min Est GFR ( Amer) ml/min Est GFR (Non-Af Amer) ml/min BUN/Creatinine Ratio (10-20) Glucose (70-99(Fasting)) mg/dl Calcium (8.5-10.1) mg/dl Magnesium (1.7-2.4) mg/dl Total Bilirubin (0.2-1.0) mg/dl AST (13-39) U/L ALT (7-52) U/L Alkaline Phosphatase (34-104) U/L Troponin I (0-0.04) ng/ml B-Natriuretic Peptide 61 (0-100) pg/ml Total Protein (6.0-8.3) gm/dl Albumin (3.4-5.0) gm/dl Globulin (2.5-4.0) gm/dl Albumin/Globulin Ratio (0.9-2) SARS-CoV-2, RNA, NAAT NEGATIVE (NEGATIVE) Administered Medications Discontinued Medications Furosemide (Furosemide 40 Mg/4 Ml Vial) 40 mg IV ONE ONE Stop: 09/27/21 16:15 Last Admin: 09/27/21 16:37 Dose: 40 mg Documented by: [id number] Warfarin Sodium (Warfarin Sod 5 Mg Tab) 5 mg PO DAILY CHRISTINE Stop: 10/27/21 17:59 Last Admin: 09/27/21 18:37 Dose: 5 mg Documented by: [id number] Imaging Data Radiologist's Impression: Chest X-Ray 09/27/21 12:07 XR chest 1V portable CLINICAL HISTORY: Dyspnea. COMPARISON STUDY: Chest radiograph and chest CT July 27, 2021. FINDINGS: Right internal jugular [id number] is in place. Single-lead left- sided pacer. Cardiomegaly is unchanged. Hazy right basilar opacity is likely due to epicardial fat pad. There is no evidence for pulmonary edema. No lobar consolidation is identified. IMPRESSION: 1. Cardiomegaly. No evidence for overt pulmonary edema. 2. No lobar pneumonia. ACT 112: Negative or not required by law. Electronically signed by: Jesus Cleaning M.D. 09/27/2021 12:43 PM Venous Doppler Study 09/27/21 14:05 BILATERAL LOWER EXTREMITY VENOUS DOPPLER HISTORY: Lower extremity edema, eval for DVT COMPARISON STUDY: None. FINDINGS: There is normal compressibility, flow, and augmentation within the bilateral lower extremity deep venous systems. IMPRESSION: No DVT within the right or left lower extremity. ACT 112: Negative or not required by law. Electronically signed by: Prashanth Vazquez M.D. 09/27/2021 4:32 PM Discharge Plan Visit Data Chief Complaint: Shortness of Breath/Dyspnea ED Provider: Henrik Steven Discharge Problem: SOB (shortness of breath), Fluid overload, Bilateral edema of lower extremity Patient Disposition: Admitted As Inpatient Discharge Instructions Interventions: ED Discharge Assessment Last Done: 09/27/21 18:37
--- NOTE | 2021-09-27 12:44 | XRay Report ---
XR chest 1V portable CLINICAL HISTORY: Dyspnea. COMPARISON STUDY: Chest radiograph and chest CT July 27, 2021. FINDINGS: Right internal jugular [id number] is in place. Single-lead left-sided pacer. Cardiomegal y is unchanged. Hazy right basilar opacity is likely due to epicardial fat pad. There is no evidence for pulmonary edema. No lobar consolidation is identified. IMPRESSION: 1. Cardiomegaly. No evidence for overt pulmonary edema. 2. No lobar pneumonia. ACT 112: Negative or not required by law. Electronically signed by: Jesus Cleaning M.D. 09/27/2021 12:43 PM
[2021-09-27 12:55] LABS: D Dimer 610 ug/L FEU (0-500)
[2021-09-27 13:07] LABS: Albumin Globulin Ratio 1.3 (0.9-2); Albumin Level 3.7 gm/dl (3.4-5.0); BUN Creatinine Ratio 14.9 (10-20); Bilirubin,Total 0.4 mg/dl (0.2-1.0); Calcium 9.6 mg/dl (8.5-10.1); Creatinine Clr Calc Pharmacy 58.9 ml/min; Est GFR (African American) 38.9 ml/min; Est GFR (Non-African American) 33.6 ml/min; Globulin 2.8 gm/dl (2.5-4.0); Magnesium 2.3 mg/dl (1.7-2.4); Potassium 4.7 mmol/L (3.5-5.1); Total Protein 6.5 gm/dl (6.0-8.3)
[2021-09-27 13:09] LABS: Troponin I 0.2 ng/ml (0-0.04)
--- NOTE | 2021-09-27 13:49 | Electrocardiogram Report ---
Test Reason : Blood Pressure : / mmHG Vent. Rate : 077 BPM Atrial Rate : 174 BPM P-R Int : 000 ms QRS Dur : 090 ms QT Int : 344 ms P-R-T Axes : 000 094 199 degrees QTc Int : 389 ms Atrial fibrillation with occasional ventricular-paced complexes Rightward axis Abnormal ECG When compared with ECG of 30-JUL-2021 05:44, Vent. rate has increased BY 4 BPM Confirmed by Leopoldo Olsen ([id number]) on 09/27/2021 1:48:50 PM Referred By: Confirmed By:Tylor Olsen
[2021-09-27 14:36] LABS: INR 1.2 (0.9-1.1); Prothrombin Time 12.2 Seconds (9.0-12.0)
[2021-09-27] MEDS ORDERED: FUROSEMIDE 40 MG/4 ML VIAL IV ONE (16:14)
--- NOTE | 2021-09-27 16:14 | History & Physical Report ---
Date of Service September 27, 2021 Assessment & Plan (1) SOB (shortness of breath): Plan: Acute on Chronic Right-sided congestive heart failure Hypoxia CXR showed: Showed no evidence of overt pulmonary edema. Last ECHO: EF 55 to 60%. Moderate concentric LVH. Hold PO diuretics--torsemide, metoprolol Start IV Lasix 80mg BID Continue Aldactone Daily weight, I/Os, fluid restriction Low sodium diet Oxygen support PRN Monitor renal function/electrolytes Cardiology consulted Subtherapeutic INR Secondary to noncompliance INR 1.2 Given elevated D-dimer, will start on IV heparin till INR is therapeutic Continue Coumadin Monitor INR Elevated D-dimer Could not obtain CTA given renal insufficiency Likely would not slubber frame changer given anticoagulation Chronic troponin elevation In setting of CKD, CHF Patient denies any chest pain EKG showed no signs of acute ischemia Trend troponin Chronic hyponatremia Likely secondary to diuretics and antipsychotics Sodium level at baseline Monitor CKD III b Creatinine 2.08 at baseline Nephrology consulted to help with IV diuresis given CKD Obstructive sleep apnea on BiPAP HS COPD No signs of exacerbation Continue home inhalers Coronary artery disease S/P CABG Hypertension Continue home medications Morbid obesity BMI 67 Chronic atrial fibrillation sick sinus syndrome S/P PPM Continue metoprolol IV heparin till INR is therapeutic Monitor INR Continue Coumadin DVT Px: Coumadin IV Heparin: DC when INR is therapeutic Code Status Full Code History of Present Illness Chief Complaint: Shortness of Breath Primary Care Provider: Jp Morillo MD Patient is a 61-year-old male with history of chronic right-sided heart failure, obstructive sleep apnea on BiPAP, COPD, coronary artery disease S/P CABG, hypertension, morbid obesity, GERD, hypertensive heart disease, sick sinus syndrome S/P PPM, COVID, atrial fibrillation on chronic anticoagulation with Coumadin, CKD stage III and other medical problems presents with history of worsening shortness of breath, weight gain and leg swelling since 1 week duration. Patient states that he has been more dyspneic at rest and also with activity. He admits to taking his diuretics regularly but had worsening leg swelling associated with weight gain of about 9 pounds in 1 week. Patient received 2 doses of IV Lasix as outpatient but had no relief of his symptoms. He also states having mild non expectorant cough, and dizziness with movement. Patient does not follow fluid restriction. He also reports having chronic back pain. He admits to missing his Coumadin dose 2 days ago and so took double his usual Coumadin dose yesterday (took 10mg). Denies any history of chest pain, palpitations, diaphoresis, wheezing, hemoptysis, fever, chills, headache, change in vision, nausea, vomiting, abdominal pain, diarrhea, change in appetite, dysuria, hematuria. He was found to be hypoxic while in ED 85% on room air. Allergies Allergy/AdvReac Type Severity Reaction Status Date / Time morphine AdvReac Mild nausea and Verified 09/27/21 12:25 vomiting Home Medications Medication Instructions Recorded Confirmed Type albuterol sulfate 90 mcg/actuation 2 puff INHALATION QID PRN 05/04/18 09/27/21 History aerosol inhaler (ProAir HFA) gabapentin 600 mg tablet 600 mg PO BID 05/04/18 09/27/21 History isosorbide mononitrate 30 mg 30 mg PO QAM 05/04/18 09/27/21 History tablet,extended release 24 hr lamotrigine 200 mg tablet 200 mg PO BID 05/04/18 09/27/21 History (Lamictal) nitroglycerin 0.4 mg sublingual 0.4 mg SUBLINGUAL DIRECTED PRN 05/04/18 09/27/21 History tablet (Nitrostat) topiramate 25 mg tablet (Topamax) 25 mg PO BID 05/04/18 09/27/21 History zolpidem 5 mg tablet (Ambien) 5 mg PO HS PRN 05/04/18 09/27/21 History albuterol sulfate 2.5 mg INHALATION Q6 PRN 03/03/20 09/27/21 History aripiprazole 5 mg tablet (Abilify) 5 mg PO QAM 03/03/20 09/27/21 History fluticasone 250 mcg-salmeterol 50 1 inh INHALATION BID 03/03/20 09/27/21 History mcg/dose blistr powdr for inhalation (Advair Diskus) rosuvastatin 40 mg tablet (Crestor) 40 mg PO DAILY 03/03/20 09/27/21 History metoprolol succinate 50 mg 50 mg PO DAILY 02/05/21 09/27/21 History tablet,extended release 24 hr quetiapine 200 mg tablet (Seroquel) 200 mg PO HS 02/05/21 09/27/21 History spironolactone 50 mg tablet 50 mg PO BID 02/05/21 09/27/21 History warfarin 5 mg tablet 5 mg PO UD 02/05/21 09/27/21 History ezetimibe 10 mg tablet 10 mg PO DAILY 06/24/21 09/27/21 History tamsulosin 0.4 mg capsule 0.4 mg PO HS 06/24/21 09/27/21 History metolazone 5 mg tablet 2.5 mg PO MOWEFR #6 tab 07/05/21 09/27/21 Rx potassium chloride 20 mEq 60 meq PO TID #300 tab 07/05/21 09/27/21 Rx tablet,extended release(part/cryst) cholecalciferol (vitamin D3) 125 125 mcg PO QDD 07/28/21 09/27/21 History mcg (5,000 unit) tablet (Vitamin D3) torsemide 20 mg tablet 100 mg PO BID #300 tab 08/05/21 09/27/21 Rx Past Med/Surg History Medical History CAD (coronary artery disease) CAD (coronary artery disease) Chronic atrial fibrillation Chronic back pain CKD (chronic kidney disease) stage 3, GFR 30-59 ml/min Cor pulmonale Depression HTN (hypertension) Hyperlipidemia Hypertension Obesities, morbid OSCAR (obstructive sleep apnea) Volume overload Surgical History S/P CABG x 4 Social History Smoking Status: Never smoker Second Hand Exposure: No; Hx Alcohol Use: No Hx Substance Use: No Preferred Language: [place] Sudanese Communication Ability: Effective Hearing Ability: Normal 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 Beliefs That Will Affect Care: None marital status: Single Current Living Situation: Alone Current Living Situation Comment: fist floor appartment Feels Safe at Home: Yes Assistive Devices: None Review of Systems Review of Systems: All systems reviewed & are unremarkable except as noted in Subjective Physical Exam Physical Exam: Physical Exam: Vitals signs as noted above General Appearance:Morbidly Obese, no apparent distress Head: normocephalic, Atraumatic Eyes: normal inspection, EOMI Neck: supple, Trachea midline Respiratory/Chest: Normal breath sounds, CTA, No accessory muscle use, +Port on R side of chest Cardiovascular: Irregularly irregular, No murmur Abdomen/GI:Soft to firm, Non tender, distended, Bowel sounds present Extremities/Musculoskeletal:normal inspection, + B/L LE edema Neurologic/Psych:AAOX3, grossly no focal neurological deficits Skin: normal color, warm Results & Data Results & Data ([facility]) Vital Signs (Past 12 Hours) Vital Signs Temp Pulse Resp BP Pulse Ox 09/27/21 14:50 73 20 103/79 89 L 09/27/21 14:30 20 83 L 09/27/21 14:00 77 16 85 L 09/27/21 13:30 73 22 91 09/27/21 13:00 81 18 93 09/27/21 12:30 76 21 90 09/27/21 12:09 79 20 09/27/21 12:00 36.8 C 90 26 H 103/65 94 Laboratory Results Short CBC 09/27/21 Range/Units 12:21 WBC 14.06 H (4.8-10.8) K/uL Hgb 12.2 L (14.0-18.0) g/dL Hct 38.6 L (42-52) % Plt Count 235 (130-400) K/uL BMP 09/27/21 12:21 Sodium 131 L Potassium 4.7 Chloride 92 L Carbon Dioxide 34 H BUN 31 H Creatinine 2.08 H Glucose 88 Calcium 9.6 Cardiac Enzymes 09/27/21 Range/Units 12:21 Troponin I 0.20 H* (0-0.04) ng/ml Liver Function 09/27/21 Range/Units 12:21 Total Bilirubin 0.4 (0.2-1.0) mg/dl AST 26 (13-39) U/L ALT 29 (7-52) U/L Alkaline Phosphatase 126 H (34-104) U/L Albumin 3.7 (3.4-5.0) gm/dl Diagnostic Findings CXR:Cardiomegaly. No evidence for overt pulmonary edema. No lobar pneumonia. Venous Doppler:No DVT within the right or left lower extremity ECG Additional Comments: EKG: Atrial fibrillation with occasional ventricular paced complexes. QTc 389.
--- NOTE | 2021-09-27 16:34 | Ultrasound Report ---
BILATERAL LOWER EXTREMITY VENOUS DOPPLER HISTORY: Lower extremity edema, eval for DVT COMPARISON STUDY: None. FINDINGS: There is normal compressibility, flow, and augmentation within the bilateral lower extremit y deep venous systems. IMPRESSION: No DVT within the right or left lower extremity. ACT 112: Negative or not required by law. Electronically signed by: Prashanth Vazquez M.D. 09/27/2021 4:32 PM
[2021-09-27] MEDS ORDERED: WARFARIN SOD 5 MG TAB PO SCH (18:00)
[2021-09-27] MEDS ORDERED: NITROGLYCERIN SL 0.4 MG/TAB TAB SL PRN (18:37)
[2021-09-27] MEDS ORDERED: ACETAMINOPHEN 325 MG TAB PO PRN (18:37)
[2021-09-27] MEDS ORDERED: POLYETHYLENE (MIRALAX) 17 GM PACK PO PRN (18:37)
[2021-09-27] MEDS ORDERED: ALBUTEROL HFA 8 GM INHALER INH PRN (18:37)
[2021-09-27] MEDS: HEPARIN SODIUM/DEXTROSE 25,000 UNITS/500 ML BAG IV SCH (20:20)
[2021-09-27] MEDS: Heparin IV Adult Wt-Based Standard *NO* Bolus Protocol IV SCH ×2 (20:42→22:29)
[2021-09-27 21:19] LABS: Appearance Urine Clear (Clear); Bilirubin Urine Negative (Negative); Blood Urine Negative (Negative); Color Urine Yellow; Glucose Urine UA Negative (Negative); Ketones Urine Negative (Negative); Leukocyte Esterase Urine Negative (Negative); Nitrite Urine Negative (Negative); Protein Urine Negative (Negative); Specific Gravity Urine 1.008 (1.000-1.030); Urobilinogen Urine Negative (Negative)
[2021-09-27] MEDS ORDERED: HEPARIN 100 UNIT/ML 5ML FLUSH FLUSH PRN (21:57)
[2021-09-27] MEDS: TOPIRAMATE 25 MG TAB PO SCH (22:35)
[2021-09-27] MEDS: TAMSULOSIN HCL 0.4 MG CAP PO SCH (22:35)
[2021-09-27] MEDS: lamoTRIgine 100 MG TAB PO SCH (22:36)
[2021-09-27] MEDS: POTASSIUM CHLORIDE CRTAB 20 MEQ TABCR PO SCH (22:37)
[2021-09-27] MEDS: SPIRONOLACTONE 25 MG TAB PO SCH (22:37)
[2021-09-27] MEDS: GABAPENTIN 600 MG TAB PO SCH (22:38)
[2021-09-27] MEDS: ALBUTEROL 0.083% NEBU SOLN 3 ML VIAL INH PRN (23:21)
[2021-09-27] MEDS: ZOLPIDEM TARTRATE 5 MG TAB PO PRN (23:53)
[2021-09-27] MEDS: QUEtiapine FUMARATE 200 MG TAB PO SCH (23:53)
[2021-09-28 01:29] LABS: Partial Thromboplastin Ratio 3.8
[2021-09-28 01:32] LABS: Partial Thromboplastin Time 100.8 Seconds (21.0-31.0)
[2021-09-28] MEDS: Heparin IV Adult Wt-Based Standard *NO* Bolus Protocol IV SCH ×4 (02:28→04:26)
[2021-09-28 04:00] LABS: Basophils # (auto) 0.04 K/uL (0-0.2); Basophils % (auto) 0.3 %; Eosinophils # (auto) 0.25 K/uL (0-0.5); Eosinophils % (auto) 1.9 %; Hemoglobin 11.8 g/dL (14.0-18.0); Immature Granulocytes # (auto) 0.11 K/uL (0.00-0.02); Immature Granulocytes % (auto) 0.8 %; Lymphocytes # (auto) 2.69 K/uL (1.2-3.4); Lymphocytes % (auto) 20.3 %; Mean Corpuscular Hemoglobin 27.1 pg (25-34); Mean Corpuscular Hgb Conc 31.9 g/dL (32-36); Mean Corpuscular Volume 85.1 fL (80-100); Mean Platelet Volume 10.2 fL (7.4-10.4); Monocytes # (auto) 0.87 K/uL (0.11-0.59); Monocytes % (auto) 6.6 %; Neutrophils # (auto) 9.29 K/uL (1.4-6.5); Neutrophils % (auto) 70.1 %; Platelet Count 240 K/uL (130-400); RDW Coefficient of Variation 18.4 % (11.5-14.5); RDW Standard Deviation 58.3 fL (36.4-46.3); Red Blood Count 4.35 M/uL (4.7-6.1); White Blood Count 13.25 K/uL (4.8-10.8)
[2021-09-28 04:10] LABS: INR 1.6 (0.9-1.1); Prothrombin Time 15.8 Seconds (9.0-12.0)
[2021-09-28 04:29] LABS: Troponin I 0.62 ng/ml (0-0.04)
[2021-09-28 05:04] LABS: BUN Creatinine Ratio 15.5 (10-20); Calcium 8.9 mg/dl (8.5-10.1); Creatinine Clr Calc Pharmacy 55.9 ml/min; Est GFR (African American) 36.6 ml/min; Est GFR (Non-African American) 31.6 ml/min; Magnesium 2.3 mg/dl (1.7-2.4); Potassium 4.6 mmol/L (3.5-5.1)
[2021-09-28] MEDS: FUROSEMIDE 40 MG/4 ML VIAL IV SCH ×2 (08:12→17:56)
[2021-09-28] MEDS: TOPIRAMATE 25 MG TAB PO SCH ×2 (08:13→20:35)
[2021-09-28] MEDS: ROSUVASTATIN CALCIUM 20 MG TAB PO SCH (08:13)
[2021-09-28] MEDS: METOPROLOL SUCC 50MG EXT REL TAB PO SCH (08:14)
[2021-09-28] MEDS: GABAPENTIN 600 MG TAB PO SCH ×2 (08:14→20:34)
[2021-09-28] MEDS: SPIRONOLACTONE 25 MG TAB PO SCH ×2 (08:14→20:35)
[2021-09-28] MEDS: ARIPiprazole 5 MG TAB PO SCH (08:14)
[2021-09-28] MEDS: ISOSORBIDE MONO EXTENDED REL 30 MG TABCR PO SCH (08:15)
[2021-09-28] MEDS: lamoTRIgine 100 MG TAB PO SCH ×2 (08:15→20:35)
[2021-09-28] MEDS: POTASSIUM CHLORIDE CRTAB 20 MEQ TABCR PO SCH ×2 (08:15→21:22)
[2021-09-28] MEDS: FLUTICASONE/VILANTEROL 200/25MCG 14 PUFFS/INHALER INH SCH (08:19)
[2021-09-28] MEDS: EZETIMIBE 10 MG TABLET PO SCH (08:19)
[2021-09-28 08:35] LABS: Partial Thromboplastin Ratio 4.2
--- NOTE | 2021-09-28 08:47 | Electrocardiogram Report ---
Test Reason : Blood Pressure : / mmHG Vent. Rate : 063 BPM Atrial Rate : 441 BPM P-R Int : 000 ms QRS Dur : 080 ms QT Int : 408 ms P-R-T Axes : 000 093 158 degrees QTc Int : 417 ms Atrial fibrillation with frequent ventricular-paced complexes Rightward axis Abnormal ECG When compared with ECG of 27-SEP-2021 12:00, Vent. rate has decreased BY 14 BPM Confirmed by Leopoldo Olsen ([id number]) on 09/28/2021 8:47:16 AM Referred By: REFERRED SELF Confirmed By:Tylor Olsen
[2021-09-28 08:58] LABS: Partial Thromboplastin Time 109.9 Seconds (21.0-31.0)
--- NOTE | 2021-09-28 08:59 | Cardiology Consultation ---
Date of Consultation September 28, 2021 Assessment & Plan (1) Right-sided congestive heart failure: (2) Morbid obesity: (3) CKD (chronic kidney disease) stage 3, GFR 30-59 ml/min: (4) CAD (coronary artery disease): (5) Status post placement of cardiac pacemaker: (6) Chronic atrial fibrillation: (7) OSCAR (obstructive sleep apnea): (8) Cor pulmonale: 61-year-old male with complex issues as outlined which include chronic ischemic heart disease, morbid obesity with pickwickian phenomena and chronic right heart failure presents with acute on chronic right-sided greater than left congestive heart failure failing outpatient management despite aggressive treatment. Overall weight gain 13 kg since last hospital discharge Course complicated by patient noncompliance Plan as already outlined IV diuretics and fluid restriction with inhospital management. Continue BiPAP nocturnally and while sleeping during the day If somnolence persists consider ABG, addressing neuropsychiatric medications Agree with IV heparin until warfarin once again therapeutic Cardiology will follow History of Present Illness Reason for Consultation: Acute on chronic right-sided heart failure Requesting Physician: Tom Solano MD Attending Physician: Tom Solano MD History of Present Illness Patient is a 61-year-old male well-known to this institution with ongoing cardiac issues 1. Premature atherosclerotic coronary disease status post coronary artery bypass grafting x4 in 2001 at age 43. 2. Permanent atrial fibrillation on chronic anticoagulation. 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 Obstructive sleep apnea on BiPAP, supplementation with past oxygen use as well nocturnally- noncompliance 5. Morbid obesity. 6. Hyperlipidemia. 7. Hypertension. 8 Cor pulmonale with chronic class 3 right heart failure and edema Patient admitted after failing outpatient attempts at management of chronic predominantly right-sided/diastolic heart failure with increased oral dosing and IV furosemide as an outpatient. Weights have progressively increased now up 25 pounds since last hospital discharge. He denies any specific complaints other than increasing edema and abdominal girth. Notes no chest pains, tachypalpitations, syncope, near syncope. On [facility] home visit yesterday was noted to be more somnolent and referred for ER evaluation. Patient hypoxic on presentation He denies fevers chills sweats cough, bleeding notes no dizziness or lig htheadedness. Notes he has missed doses of his warfarin and patient's INR significantly subtherapeutic on presentation. Allergies Allergy/AdvReac Type Severity Reaction Status Date / Time morphine AdvReac Mild nausea and Verified 09/27/21 12:25 vomiting Home Medications Medication Instructions Recorded Confirmed Type albuterol sulfate 90 mcg/actuation 2 puff INHALATION QID PRN 05/04/18 09/27/21 History aerosol inhaler (ProAir HFA) gabapentin 600 mg tablet 600 mg PO BID 05/04/18 09/27/21 History isosorbide mononitrate 30 mg 30 mg PO QAM 05/04/18 09/27/21 History tablet,extended release 24 hr lamotrigine 200 mg tablet 200 mg PO BID 05/04/18 09/27/21 History (Lamictal) nitroglycerin 0.4 mg sublingual 0.4 mg SUBLINGUAL DIRECTED PRN 05/04/18 09/27/21 History tablet (Nitrostat) topiramate 25 mg tablet (Topamax) 25 mg PO BID 05/04/18 09/27/21 History zolpidem 5 mg tablet (Ambien) 5 mg PO HS PRN 05/04/18 09/27/21 History albuterol sulfate 2.5 mg INHALATION Q6 PRN 03/03/20 09/27/21 History aripiprazole 5 mg tablet (Abilify) 5 mg PO QAM 03/03/20 09/27/21 History fluticasone 250 mcg-salmeterol 50 1 inh INHALATION BID 03/03/20 09/27/21 History mcg/dose blistr powdr for inhalation (Advair Diskus) rosuvastatin 40 mg tablet (Crestor) 40 mg PO DAILY 03/03/20 09/27/21 History metoprolol succinate 50 mg 50 mg PO DAILY 02/05/21 09/27/21 History tablet,extended release 24 hr quetiapine 200 mg tablet (Seroquel) 200 mg PO HS 02/05/21 09/27/21 History spironolactone 50 mg tablet 50 mg PO BID 02/05/21 09/27/21 History warfarin 5 mg tablet 5 mg PO UD 02/05/21 09/27/21 History ezetimibe 10 mg tablet 10 mg PO DAILY 06/24/21 09/27/21 History tamsulosin 0.4 mg capsule 0.4 mg PO HS 06/24/21 09/27/21 History metolazone 5 mg tablet 2.5 mg PO MOWEFR #6 tab 07/05/21 09/27/21 Rx potassium chloride 20 mEq 60 meq PO TID #300 tab 07/05/21 09/27/21 Rx tablet,extended release(part/cryst) cholecalciferol (vitamin D3) 125 125 mcg PO QDD 07/28/21 09/27/21 History mcg (5,000 unit) tablet (Vitamin D3) torsemide 20 mg tablet 100 mg PO BID #300 tab 08/05/21 09/27/21 Rx Patient History Medical History CAD (coronary artery disease) CAD (coronary artery disease) Chronic atrial fibrillation Chronic back pain CKD (chronic kidney disease) stage 3, GFR 30-59 ml/min Cor pulmonale Depression HTN (hypertension) Hyperlipidemia Hypertension Obesities, morbid OSCAR (obstructive sleep apnea) Volume overload Surgical History S/P CABG x 4 Social History Smoking Status: Never smoker Second Hand Exposure: No; Hx Alcohol Use: No Hx Substance Use: No Preferred Language: [place]an Communication Ability: Effective Hearing Ability: Normal Home Stager Required: No Beliefs That Will Affect Care: None marital status: Single Current Living Situation: Alone Current Living Situation Comment: fist floor appartment Feels Safe at Home: Yes Assistive Devices: Cane, CPAP, Nebulizer and Walker Review of Systems Review of Systems: All systems reviewed & are unremarkable except as noted in HPI & below Physical Exam Constitutional: + morbidly obese; no acute distress Eyes: PERRL, conjunctivae normal, anicteric sclerae Neck: + thick neck Respiratory: no audible wheezes Auscultation: + diminished lung sounds Cardiovascular: Rate/Rhythm: regular rate (Paced rhythm) Heart Sounds: no murmur Extremities: + edema (2-3+ with increased abdominal girth as well) Gastrointestinal (Abdomen): Large panniculus with mild distention Musculoskeletal: Knee: + skin erythema (Lower extremities without skin breakdown) Neurologic: Lethargic but does wake with questioning Results & Data ([facility]) Vital Signs (Past 12 Hours) Vital Signs Temp Pulse Pulse Pulse Resp BP Pulse Ox 09/28/21 08:02 36.5 C 71 18 119/56 L 93 09/28/21 03:50 90 18 94 09/28/21 03:14 76 20 109/60 94 09/28/21 01:47 91 H 18 97 09/28/21 00:03 74 09/27/21 23:21 71 26 H 94 09/27/21 21:47 36.5 C 89 22 104/64 95 Laboratory Results Laboratory Results - last 24 hr 09/27/21 09/27/21 09/27/21 12:21 12:21 12:21 WBC 14.06 H RBC 4.53 L Hgb 12.2 L Hct 38.6 L MCV 85.2 MCH 26.9 MCHC 31.6 L RDW Std Deviation 57.2 H RDW Coeff of Karlene 18.4 H Plt Count 235 MPV 10.2 Immature Gran % (Auto) 1.7 Neut % (Auto) 71.4 Lymph % (Auto) 14.9 [place] % (Auto) 9.7 Eos % (Auto) 1.8 Baso % (Auto) 0.5 Neut # (Auto) 10.03 H Lymph # (Auto) 2.10 [place] # (Auto) 1.37 H Eos # (Auto) 0.25 Baso # (Auto) 0.07 Immature Gran # (Auto) 0.24 H PT INR APTT PTT Ratio D-Dimer 610 H* Sodium 131 L Potassium 4.7 Chloride 92 L Carbon Dioxide 34 H Anion Gap 5 BUN 31 H Creatinine 2.08 H Est Cr Clr Drug Dosing 58.9 Est GFR ( Amer) 38.9 Est GFR (Non-Af Amer) 33.6 BUN/Creatinine Ratio 14.9 Glucose 88 Calcium 9.6 Magnesium 2.3 Total Bilirubin 0.4 AST 26 ALT 29 Alkaline Phosphatase 126 H Troponin I 0.20 H* B-Natriuretic Peptide Total Protein 6.5 Albumin 3.7 Globulin 2.8 Albumin/Globulin Ratio 1.3 Urine Color Urine Appearance Urine pH Ur Specific [place] Urine Protein Urine Glucose (UA) Urine Ketones Urine Blood Urine Nitrite Urine Bilirubin Urine Urobilinogen Ur Leukocyte Esterase SARS-CoV-2, RNA, NAAT 09/27/21 09/27/21 09/27/21 12:21 12:21 12:46 WBC RBC Hgb Hct MCV MCH MCHC RDW Std Deviation RDW Coeff of Karlene Plt Count MPV Immature Gran % (Auto) Neut % (Auto) Lymph % (Auto) [place] % (Auto) Eos % (Auto) Baso % (Auto) Neut # (Auto) Lymph # (Auto) [place] # (Auto) Eos # (Auto) Baso # (Auto) Immature Gran # (Auto) PT 12.2 H INR 1.2 H APTT PTT Ratio D-Dimer Sodium Potassium Chloride Carbon Dioxide Anion Gap BUN Creatinine Est Cr Clr Drug Dosing Est GFR ( Amer) Est GFR (Non-Af Amer) BUN/Creatinine Ratio Glucose Calcium Magnesium Total Bilirubin AST ALT Alkaline Phosphatase Troponin I B-Natriuretic Peptide 61 Total Protein Albumin Globulin Albumin/Globulin Ratio Urine Color Urine Appearance Urine pH Ur Specific [place] Urine Protein Urine Glucose (UA) Urine Ketones Urine Blood Urine Nitrite Urine Bilirubin Urine Urobilinogen Ur Leukocyte Esterase SARS-CoV-2, RNA, NAAT NEGATIVE 09/27/21 09/27/21 09/28/21 19:43 21:13 00:36 WBC RBC Hgb Hct MCV MCH MCHC RDW Std Deviation RDW Coeff of Karlene Plt Count MPV Immature Gran % (Auto) Neut % (Auto) Lymph % (Auto) [place] % (Auto) Eos % (Auto) Baso % (Auto) Neut # (Auto) Lymph # (Auto) [place] # (Auto) Eos # (Auto) Baso # (Auto) Immature Gran # (Auto) PT INR APTT 100.8 H* PTT Ratio 3.8 D-Dimer Sodium Potassium Chloride Carbon Dioxide Anion Gap BUN Creatinine Est Cr Clr Drug Dosing Est GFR ( Amer) Est GFR (Non-Af Amer) BUN/Creatinine Ratio Glucose Calcium Magnesium Total Bilirubin AST ALT Alkaline Phosphatase Troponin I 0.48 H* B-Natriuretic Peptide Total Protein Albumin Globulin Albumin/Globulin Ratio Urine Color Yellow Urine Appearance Clear Urine pH 7.0 Ur Specific [place] 1.008 Urine Protein Negative Urine Glucose (UA) Negative Urine Ketones Negative Urine Blood Negative Urine Nitrite Negative Urine Bilirubin Negative Urine Urobilinogen Negative Ur Leukocyte Esterase Negative SARS-CoV-2, RNA, NAAT 09/28/21 09/28/21 09/28/21 03:39 03:39 03:39 WBC 13.25 H RBC 4.35 L Hgb 11.8 L Hct 37.0 L MCV 85.1 MCH 27.1 MCHC 31.9 L RDW Std Deviation 58.3 H RDW Coeff of Karlene 18.4 H Plt Count 240 MPV 10.2 Immature Gran % (Auto) 0.8 Neut % (Auto) 70.1 Lymph % (Auto) 20.3 [place] % (Auto) 6.6 Eos % (Auto) 1.9 Baso % (Auto) 0.3 Neut # (Auto) 9.29 H Lymph # (Auto) 2.69 [place] # (Auto) 0.87 H Eos # (Auto) 0.25 Baso # (Auto) 0.04 Immature Gran # (Auto) 0.11 H PT 15.8 H INR 1.6 H APTT PTT Ratio D-Dimer Sodium 129 L Potassium 4.6 Chloride 90 L Carbon Dioxide 34 H Anion Gap 5 BUN 34 H Creatinine 2.19 H Est Cr Clr Drug Dosing 55.9 Est GFR ( Amer) 36.6 Est GFR (Non-Af Amer) 31.6 BUN/Creatinine Ratio 15.5 Glucose 131 H Calcium 8.9 Magnesium 2.3 Total Bilirubin AST ALT Alkaline Phosphatase Troponin I 0.62 H* B-Natriuretic Peptide Total Protein Albumin Globulin Albumin/Globulin Ratio Urine Color Urine Appearance Urine pH Ur Specific [place] Urine Protein Urine Glucose (UA) Urine Ketones Urine Blood Urine Nitrite Urine Bilirubin Urine Urobilinogen Ur Leukocyte Esterase SARS-CoV-2, RNA, NAAT 09/28/21 07:33 WBC RBC Hgb Hct MCV MCH MCHC RDW Std Deviation RDW Coeff of Karlene Plt Count MPV Immature Gran % (Auto) Neut % (Auto) Lymph % (Auto) [place] % (Auto) Eos % (Auto) Baso % (Auto) Neut # (Auto) Lymph # (Auto) [place] # (Auto) Eos # (Auto) Baso # (Auto) Immature Gran # (Auto) PT INR APTT 109.9 H* PTT Ratio 4.2 D-Dimer Sodium Potassium Chloride Carbon Dioxide Anion Gap BUN Creatinine Est Cr Clr Drug Dosing Est GFR ( Amer) Est GFR (Non-Af Amer) BUN/Creatinine Ratio Glucose Calcium Magnesium Total Bilirubin AST ALT Alkaline Phosphatase Troponin I B-Natriuretic Peptide Total Protein Albumin Globulin Albumin/Globulin Ratio Urine Color Urine Appearance Urine pH Ur Specific [place] Urine Protein Urine Glucose (UA) Urine Ketones Urine Blood Urine Nitrite Urine Bilirubin Urine Urobilinogen Ur Leukocyte Esterase SARS-CoV-2, RNA, NAAT
[2021-09-28] MEDS: metOLazone 5 MG TABLET PO SCH (10:00)
--- NOTE | 2021-09-28 11:54 | Consultation Report ---
NEPHROLOGY CONSULTATION NOTE REASON FOR CONSULTATION: [id number] renal failure in patient admitted with decompensated heart failure. HISTORY OF PRESENT ILLNESS: The patient is a 61-year-old male well known to the hospitalist service because of frequent admission for congestive heart failure. He presented to the hospital with 1-2 we eks' history of increasing shortness of breath, increasing lower extremity edema, weight gain despite taking diuretics. He admits to taking his diuretics as per the prescription, but still was having i ncreasing shortness of breath. He received 2 doses of IV Lasix as an outpatient, but did not have an y relief of his symptoms. The patient does not follow fluid restriction nor follows a low-salt diet. He is always a no show in the outpatient clinic, but we see him a lot in the hospital for exactly t he same problem of fluid retention despite high-dose diuretics. His outpatient diuretic doses are pr shania aggressive with torsemide 100 twice daily, metolazone 5 mg 3 times a week and spironolactone 50 twice daily. Denies having any chest pain, fever, productive cough. ALLERGIES: MORPHINE. MEDICATIONS: Home medication list was reviewed in detail and is as per the reconciliation list. Inp atient medication list was also reviewed in detail. PAST MEDICAL AND SURGICAL HISTORY: Includes coronary artery disease, chronic atrial fibrillation, ch ronic kidney disease with a fluctuating creatinine given his fluctuating hydration status and frequen t hospital admissions, but creatinine around 2 would be his baseline, cor pulmonale, right-sided hear t failure, depression, hypertension, hyperlipidemia, morbid obesity, obstructive sleep apnea, frequen t admission for congestive heart failure, status post CABG x4, COPD, sick sinus syndrome, status post pacemaker, history of COVID infection, chronic anticoagulation with Coumadin for atrial fibrillation . SOCIAL HISTORY: The patient never smoked. He is single, lives alone in a first floor apartment. REVIEW OF SYSTEMS: As detailed in HPI; unless stated otherwise, 12 systems reviewed and negative. P ositive review of systems was increasing shortness of breath, orthopnea, lower extremity edema and we ight gain. PHYSICAL EXAMINATION: GENERAL: The patient is morbidly obese. He appears to be uncomfortable, does have some respiratory distress, even at rest. He is awake, alert, oriented x3 and was able to give me a detailed account o f his medication, as well as his problem list. VITAL SIGNS: Blood pressure is 119/56, pulse rate 71, temperature 36.5, 93% on BiPAP. HEENT: Mucous membrane is moist. NECK: Supple. Cannot assess JVD secondary to short, obese neck. CHEST: Bilateral decreased breath sounds, but very limited quality exam. CARDIOVASCULAR: Distant heart sound, irregular. Soft systolic murmur heard. ABDOMEN: Morbidly obese, abdominal wall edema. EXTREMITIES: Show chronic severe edema with chronic skin changes, 3-4+. LABORATORY TESTS: Hemoglobin 11.8, WBC count 13,000, platelet count 240. Sodium 129, potassium 4.6, BUN 34, creatinine 2.19. Most of his creatinine for the last few months has been in the 2s, so this should be baseline. Slightly elevated troponin. BNP 61. Urine dipstick shows negative protein, neg ative blood and a very bland urine sediment. IMAGING DATA: Chest x-ray, cardiomegaly. No evidence of overt pulmonary edema. Duplex did not show any DVT. ASSESSMENT AND PLAN: A 61-year-old male with severe right-sided heart failure/cor pulmonale secondar y to super morbid obesity and obstructive sleep apnea as well as multiple other medical problems, now admitted with worsening fluid retention and shortness of breath. The patient has chronic kidney dis ease secondary to all his underlying medical problems. I have been consulted for diuretics managemen t given the chronic kidney disease. Unfortunately, the patient is very noncompliant with clinic appointments and has been admitted freque ntly in the recent past with exactly the same problem. He is already on a super maximal outpatient d iuretics dose of torsemide 100 twice daily, spironolactone 50 twice daily, and metolazone 3 times a w [place]. I am not 100% sure what he does with his medication given his frequent hospital admission nor a m I certain what he does with his fluid restriction or salt intake. His current creatinine of 2.19 i s pretty much baseline. He needs to be diuresed. I agree with Lasix 80 twice daily, but he may need higher dose and that is reasonable. I would also add metolazone 5 mg daily for now and continue the Aldactone 50 twice daily. We should aim for a urine output of around 4 liters per day for now. If the urine output is less than that, consider increasing the dose of Lasix. Continue daily labs. Thank you very much for the consult. Job ID: [id number]
[2021-09-28] MEDS: HEPARIN SODIUM/DEXTROSE 25,000 UNITS/500 ML BAG IV SCH (12:05)
[2021-09-28 17:09] LABS: Partial Thromboplastin Ratio 4.4
[2021-09-28 17:15] LABS: Partial Thromboplastin Time 115.6 Seconds (21.0-31.0)
[2021-09-28] MEDS: WARFARIN SOD 5 MG TAB PO SCH (17:21)
--- NOTE | 2021-09-28 17:21 | Hospitalist Progress Note ---
Date of Service September 28, 2021 Assessment & Plan (1) SOB (shortness of breath): Plan: Acute on chronic right sided HFpEF Hypoxia CXR showed: Showed no evidence of overt pulmonary edema. Last ECHO: EF 55 to 60%. Moderate concentric LVH. Hold usual PO diuretics--torsemide, metoprolol IV Lasix 80mg BID Continue usual Aldactone Metolazone 50mg daily added by Nephro (goal is -4 L /day, increase Lasix IV as needed) Daily weight, I/Os, fluid restriction Low sodium diet Oxygen support PRN Monitor renal function/electrolytes Cardiology and Nephrology consulted Chronic atrial fibrillation sick sinus syndrome S/P PPM Subtherapeutic INR Secondary to noncompliance INR 1.6 Given elevated D-dimer, will start on IV heparin till INR is therapeutic Continue Coumadin Monitor INR Continue metoprolol Elevated D-dimer Doppler US: No DVT within the right or left lower extremity. Could not obtain CTA given renal insufficiency Likely would not change advisor given anticoagulation Coronary artery disease S/P CABG Hypertension Continue home medications Chronic troponin elevation In setting of CKD, CHF Patient denies any chest pain EKG showed no signs of acute ischemia Chronic hyponatremia Likely secondary to diuretics and antipsychotics Sodium 129 Monitor CKD III b Creatinine 2.1, baseline Nephrology consulted to help with IV diuresis given CKD Obstructive sleep apnea on BiPAP HS COPD No signs of exacerbation Continue home inhalers Morbid obesity BMI 67 DVT Px: Coumadin IV Heparin: DC when INR is therapeutic Code Status Full Code Disposition lives in an apartment PT/OT evaluation when more stable Admission and Anticipated Discharge Date Admission Date: September 27, 2021 Subjective ff up for Acute on chronic right sided HFpEF, etc seen resting in bed, comfortable not in distress states he feels about the same as yesterday breathing slightly improved no cough, fever/chills no chest pain, palpitations, dizziness no other symptoms Review of Systems Review of Systems: all noted and negative except for above Physical Exam Physical Exam: General- oriented x 3, not in distress, speaks in sentences with no effort or accessory muscle use morbidly obese Head- atraumatic Eyes- PERRL, EOMI, anicteric ENT- oropharynx clear Neck- supple, no JVD, no adenopathy, no thyromegaly; carotids +2/2, no bruits appreciated Lungs- diminished breath sounds BL no wheezing Heart- normal rate, regular rhythm; no murmur, no gallop, no rub appreciated Abdomen- normal bowel sounds, nondistended, soft, nontender, no masses or hepatosplenomegaly Extremities- grade 2 lower extremity edema , no erythema/warmth/tenderness Neuro- alert, oriented x 3; CN 2-12 grossly intact; motor 5/5 bilaterally;sen sation 100% on all extremities; no other gross focal neurologic deficits Skin- warm & dry Results & Data Results & Data ([facility]) Vital Signs (Past 12 Hours) Vital Signs Temp Pulse Resp BP BP Pulse Ox 09/28/21 15:20 36.3 C L 76 22 116/69 90 09/28/21 08:02 36.5 C 71 18 119/56 L 93 all noted and reviewed including below
[2021-09-28] MEDS: CHOLECALCIFEROL 5,000 UNITS 125 MCG TAB PO SCH (17:22)
[2021-09-28 18:37] LABS: Partial Thromboplastin Ratio 2.7
[2021-09-28 18:51] LABS: Partial Thromboplastin Time 69.8 Seconds (21.0-31.0)
[2021-09-28] MEDS ORDERED: oxyCODONE HCL IR 5 MG TAB (IMMEDIATE RELEASE) PO PRN (19:50)
[2021-09-28] MEDS ORDERED: oxyCODONE HCL IR 5 MG TAB (IMMEDIATE RELEASE) PO STA (19:51)
[2021-09-28] MEDS: QUEtiapine FUMARATE 200 MG TAB PO SCH (20:34)
[2021-09-28] MEDS: TAMSULOSIN HCL 0.4 MG CAP PO SCH (20:36)
[2021-09-28] MEDS: ZOLPIDEM TARTRATE 5 MG TAB PO PRN (22:19)
[2021-09-29 01:26] LABS: Partial Thromboplastin Ratio 2.1
[2021-09-29 01:28] LABS: Partial Thromboplastin Time 55.4 Seconds (21.0-31.0)
[2021-09-29 07:24] LABS: Calcium 8.7 mg/dl (8.5-10.1); Est GFR (African American) 32.1 ml/min; Est GFR (Non-African American) 27.7 ml/min; Potassium 3.7 mmol/L (3.5-5.1)
[2021-09-29 07:27] LABS: INR 1.7 (0.9-1.1); Partial Thromboplastin Ratio 2.3; Prothrombin Time 16.7 Seconds (9.0-12.0)
[2021-09-29 07:28] LABS: Partial Thromboplastin Time 61.7 Seconds (21.0-31.0)
[2021-09-29] MEDS: ARIPiprazole 5 MG TAB PO SCH (08:06)
[2021-09-29] MEDS: lamoTRIgine 100 MG TAB PO SCH ×2 (08:07→21:26)
[2021-09-29] MEDS: EZETIMIBE 10 MG TABLET PO SCH (08:07)
[2021-09-29] MEDS: METOPROLOL SUCC 50MG EXT REL TAB PO SCH (08:07)
[2021-09-29] MEDS: ISOSORBIDE MONO EXTENDED REL 30 MG TABCR PO SCH (08:07)
[2021-09-29] MEDS: ROSUVASTATIN CALCIUM 20 MG TAB PO SCH (08:07)
[2021-09-29] MEDS: TOPIRAMATE 25 MG TAB PO SCH ×2 (08:08→21:24)
[2021-09-29] MEDS: FLUTICASONE/VILANTEROL 200/25MCG 14 PUFFS/INHALER INH SCH (08:08)
[2021-09-29] MEDS: SPIRONOLACTONE 25 MG TAB PO SCH ×2 (08:08→21:26)
[2021-09-29] MEDS: metOLazone 5 MG TABLET PO SCH (08:08)
[2021-09-29] MEDS: GABAPENTIN 600 MG TAB PO SCH ×2 (08:08→21:25)
[2021-09-29] MEDS: POTASSIUM CHLORIDE CRTAB 20 MEQ TABCR PO SCH ×2 (08:12→21:37)
[2021-09-29] MEDS: FUROSEMIDE 40 MG/4 ML VIAL IV SCH (08:12)
[2021-09-29] MEDS: HEPARIN SODIUM/DEXTROSE 25,000 UNITS/500 ML BAG IV SCH (10:30)
--- NOTE | 2021-09-29 12:27 | Hospitalist Progress Note ---
Date of Service September 29, 2021 Assessment & Plan (1) Acute on chronic right-sided heart failure: Plan: Acute on chronic right sided HFpEF Hypoxia CXR showed: Showed no evidence of overt pulmonary edema. Last ECHO: EF 55 to 60%. Moderate concentric LVH. Hold usual PO diuretics--torsemide, metoprolol To date, urine output is not at goal. Therefore, nephrology adjusted diuretic regimen to include lasix 100mg IV q8hr, increase aldactone to 50mg BID and inc metolazone to 5mg daily for goal -4L per day output--after just a few hours he has already diuresed 1L Daily BMP/lytes monitoring. Cont daily standing weights, I/Os, fluid restriction Low sodium diet Oxygen support PRN/BIPAP at night per home regimen. Monitor renal function/electrolytes Cardiology and Nephrology consulted Noncompliance with medications? and dietary and fluid restrictions as instructed. Chronic atrial fibrillation sick sinus syndrome S/P PPM Subtherapeutic INR Secondary to noncompliance INR 1.6 Given elevated D-dimer, will start on IV heparin till INR is therapeutic Continue Coumadin Monitor INR Continue metoprolol Elevated D-dimer Doppler US: No DVT within the right or left lower extremity. Could not obtain CTA given renal insufficiency Likely would not exchange architect given anticoagulation Coronary artery disease S/P CABG Hypertension chronic, stable/at goal, Continue home medications Chronic troponin elevation In setting of CKD, CHF Patient denies any chest pain EKG showed no signs of acute ischemia Chronic hyponatremia Likely secondary to diuretics and antipsychotics Sodium 129 Monitor CKD III b Creatinine 2.1, baseline Nephrology consulted to help with IV diuresis given CKD Obstructive sleep apnea on BiPAP HS COPD chronic, stable without signs of exacerbation Continue home inhalers Morbid obesity BMI 67 Chronic back pain Patient stated no changes to this but "while im here I want something stronger than Tylenol" Current opiate crisis was highlighted and request for opiates was declined. Schedule Tylenol now and added heating pad and myoflex DVT Px: Coumadin IV Heparin: DC when INR is therapeutic Code Status Full Code DO Geno Guerrero Hospitalist Admission and Anticipated Discharge Date Admission Date: September 27, 2021 Subjective 61 yo M admitted for acute on chronic right sided heart failure reports an improvement in SOB although still SOB at rest tolerating PO denies chest pain great response to recent change in diuretic therapy this morning by nephro afebrile no leg swelling Review of Systems Review of Systems: All systems were reviewed and negative except as indicated in subjective above. Physical Exam Physical Exam: CONSTITUTIONAL: morbidly obese, vitals as above, generally well-appearing, NAD EYES: normal conjunctivae, no scleral icterus ENT: external ear and nose normal, MMM NECK: trachea midline, RESPIRATORY: clear to auscultation bilaterally, diminished breath sounds at bases, no crackles, rales or wheezes, normal respiratory effort, min conversational dyspnea. CARDIOVASCULAR: regular rate and rhythm, S1 and 2 heard without murmurs, gallops or rubs, no JVD, no peripheral edema, CHEST: inspection of chest was normal GASTROINTESTINAL: soft, protuberant, nontender, ND, no guarding MUSCULOSKELETAL: strength 5/5 throughout, head is normocephalic and atraumatic, SKIN: warm and dry, NEUROLOGIC: No facial palsy, no dysarthria. CN 2-12 grossly intact, no sensory deficit, normal cognition, normal speech, no tremor PSYCHIATRIC: alert cooperative and oriented to person, place and time. Results & Data Results & Data ([facility]) Vital Signs (Past 12 Hours) Vital Signs Temp Pulse Pulse Resp BP BP Pulse Ox 09/29/21 11:27 36.8 C 87 20 112/51 L 94 09/29/21 07:31 36.8 C 93 H 18 110/54 L 97 09/29/21 03:59 90 15 94 09/29/21 03:00 36.3 C L 65 20 99/65 L 92 Laboratory Results [facility] 09/29/21 06:23 Sodium 130 L Potassium 3.7 Chloride 88 L Carbon Dioxide 33 H BUN 39 H Creatinine 2.44 H Glucose 87 Calcium 8.7 Medications Administered Current Inpatient Medications Acetaminophen (Acetaminophen 325 Mg Tab) 650 mg PO Q4H PRN PRN Reason: Pain or Fever Stop: 10/27/21 18:36 Last Admin: 09/27/21 22:43 Dose: 650 mg Documented by: Albuterol (Albuterol Hfa 8 Gm Inhaler) 2 puffs INH QID PRN PRN Reason: Shortness Of Breath Or Wheezing Stop: 10/27/21 18:36 Albuterol (Albuterol 0.083% Nebu Soln 3 Ml Vial) 2.5 mg INH Q6 PRN; Protocol PRN Reason: Shortness Of Breath Or Wheezing Stop: 10/27/21 18:36 Last Admin: 09/27/21 23:21 Dose: 2.5 mg Documented by: Aripiprazole (Aripiprazole 5 Mg Tab) 5 mg PO QAM [facility] Stop: 10/28/21 08:59 Last Admin: 09/29/21 08:06 Dose: 5 mg Documented by: Ezetimibe (Ezetimibe 10 Mg Tablet) 10 mg PO DAILY [facility] Stop: 10/28/21 08:59 Last Admin: 09/29/21 08:07 Dose: 10 mg Documented by: Fluticasone/Vilanterol (Fluticasone/Vilanterol 200/25mcg 14 Puffs/Inhaler) 1 puffs INH DAILY [facility] Stop: 10/28/21 08:59 Last Admin: 09/29/21 08:08 Dose: 1 puffs Documented by: Furosemide (Furosemide 40 Mg/4 Ml Vial) 100 mg IV Q8H [facility] Stop: 10/29/21 10:29 Gabapentin (Gabapentin 600 Mg Tab) 600 mg PO BID [facility] Stop: 10/27/21 20:59 Last Admin: 09/29/21 08:08 Dose: 600 mg Documented by: Heparin Sodium (Porcine) (Heparin 100 Unit/Ml 5ml Flush) 5 ml FLUSH PRN PRN PRN Reason: Flush Stop: 10/27/21 21:56 Heparin Sodium/Dextrose (Heparin Sodium/Dextrose) 25,000 units in 500 mls @ 22 mls/hr IV .[id number] [facility]; Protocol Stop: 10/27/21 18:36 Last Admin: 09/29/21 10:30 Dose: 1,100 units/hr, 22 mls/hr Documented by: Isosorbide Mononitrate (Isosorbide [place] Extended Rel 30 Mg Tabcr) 30 mg PO QAM [facility] Stop: 10/28/21 08:59 Last Admin: 09/29/21 08:07 Dose: 30 mg Documented by: Lamotrigine (Lamotrigine 100 Mg Tab) 200 mg PO BID [facility] Stop: 10/27/21 20:59 Last Admin: 09/29/21 08:07 Dose: 200 mg Documented by: Metolazone (Metolazone 5 Mg Tablet) 5 mg PO QAM [facility] Stop: 10/28/21 09:59 Last Admin: 09/29/21 08:08 Dose: 5 mg Documented by: Metoprolol Succinate (Metoprolol Succ 50mg Ext Rel Tab) 50 mg PO DAILY [facility] Stop: 10/28/21 08:59 Last Admin: 09/29/21 08:07 Dose: 50 mg Documented by: Nitroglycerin (Nitroglycerin Sl 0.4 Mg/Tab Tab) 0.4 mg SL UD PRN PRN Reason: Chest Pain Stop: 10/27/21 18:36 Ondansetron HCl (Ondansetron Inj 2 Mg/Ml 2 Ml Vial) 4 mg IV Q6H PRN PRN Reason: Nausea Stop: 10/27/21 18:36 Polyethylene Glycol (Polyethylene (Miralax) 17 Gm Pack) 17 gm PO DAILY PRN PRN Reason: Constipation Stop: 10/27/21 18:36 Potassium Chloride (Potassium Chloride Crtab 20 Meq Tabcr) 20 meq PO BID [facility] Stop: 10/27/21 20:59 Last Admin: 09/29/21 08:12 Dose: 20 meq Documented by: Quetiapine Fumarate (Quetiapine Fumarate 200 Mg Tab) 200 mg PO HS [facility] Stop: 10/27/21 20:59 Last Admin: 09/28/21 20:34 Dose: 200 mg Documented by: Rosuvastatin Calcium (Rosuvastatin Calcium 20 Mg Tab) 40 mg PO DAILY [facility] Stop: 10/28/21 08:59 Last Admin: 09/29/21 08:07 Dose: 40 mg Documented by: Spironolactone (Spironolactone 25 Mg Tab) 50 mg PO BID [facility] Stop: 10/27/21 20:59 Last Admin: 09/29/21 08:08 Dose: 50 mg Documented by: Tamsulosin HCl (Tamsulosin Hcl 0.4 Mg Cap) 0.4 mg PO HS [facility] Stop: 10/27/21 20:59 Last Admin: 09/28/21 20:36 Dose: 0.4 mg Documented by: Topiramate (Topiramate 25 Mg Tab) 25 mg PO BID [facility] Stop: 10/27/21 20:59 Last Admin: 09/29/21 08:08 Dose: 25 mg Documented by: Vitamin D (Cholecalciferol 5,000 Units 125 Mcg Tab) 5,000 units PO QDD [facility] Stop: 10/28/21 16:29 Last Admin: 09/28/21 17:22 Dose: 5,000 units Documented by: Warfarin Sodium (Warfarin Sod 5 Mg Tab) 5 mg PO DAILY@1600 [facility] Stop: 10/28/21 15:59 Last Admin: 09/28/21 17:21 Dose: 5 mg Documented by: Zolpidem Tartrate (Zolpidem Tartrate 5 Mg Tab) 5 mg PO HS PRN PRN Reason: Sleep Stop: 10/27/21 18:36 Last Admin: 09/28/21 22:19 Dose: 5 mg Documented by:
--- NOTE | 2021-09-29 12:37 | Nephrology Progress Note ---
Date of Service September 29, 2021 Assessment & Plan Admission and Anticipated Discharge Date Admission Date: September 27, 2021 Subjective S---No new issues. remains SOB. Urine out only about 1500 ml. PHYSICAL EXAMINATION: GENERAL: The patient is morbidly obese. He appears to be uncomfortable, does have some respiratory distress, even at rest. He is awake, alert, oriented x3 and was able to give me a detailed account of his medication, as well as his problem list. VITAL SIGNS: Blood pressure is 119/56, pulse rate 71, temperature 36.5, 93% on BiPAP. HEENT: Mucous membrane is moist. NECK: Supple. Cannot assess JVD secondary to short, obese neck. CHEST: Bilateral decreased breath sounds, but very limited quality exam. CARDIOVASCULAR: Distant heart sound, irregular. Soft systolic murmur heard. ABDOMEN: Morbidly obese, abdominal wall edema. EXTREMITIES: Show chronic severe edema with chronic skin changes, 3-4+. LABORATORY TESTS: labs reviewed. IMAGING DATA: Chest x-ray, cardiomegaly. No evidence of overt pulmonary edema. Duplex did not show any DVT. ASSESSMENT AND PLAN: A 61-year-old male with severe right-sided heart failure/cor pulmonale secondary to super morbid obesity and obstructive sleep apnea as well as multiple other medical problems, now admitted with worsening fluid retention and shortness of breath. The patient has chronic kidney disease secondary to all his underlying medical problems. I have been consulted for diuretics management given the chronic kidney disease. Unfortunately, the patient is very noncompliant with clinic appointments and has been admitted frequently in the recent past with exactly the same problem. He is already on a super maximal outpatient diuretics dose of torsemide 100 twice daily, spironolactone 50 twice daily, and metolazone 3 times a week. I am not 100% sure what he does with his medication given his frequent hospital admission nor am I certain what he does with his fluid restriction or salt intake. His current creatinine of 2.19 is pretty much baseline. He needs to be diuresed. I agree with Lasix 80 twice daily, but he may need higher dose and that is reasonable. I would also add metolazone 5 mg daily for now and continue the Aldactone 50 twice daily. Rec: 1. We should aim for a urine output of around 4 liters per day for now while inpt at least. Only made less than 1500 ml. SO raise lasix to 100 iv q8hr and metolazone 5 daily and aldactone 50bid. he can have some rise in BUN,creat and Co2. Slight rise in Creat from yesterday but that is acceptable. . Results & Data ([facility]) Vital Signs (Past 12 Hours) Vital Signs Temp Pulse Pulse Resp BP BP Pulse Ox 09/29/21 11:27 36.8 C 87 20 112/51 L 94 09/29/21 07:31 36.8 C 93 H 18 110/54 L 97 09/29/21 03:59 90 15 94 09/29/21 03:00 36.3 C L 65 20 99/65 L 92
[2021-09-29] MEDS ORDERED: FUROSEMIDE 40 MG/4 ML VIAL IV SCH (14:00)
[2021-09-29] MEDS: WARFARIN SOD 5 MG TAB PO SCH (16:52)
[2021-09-29] MEDS: CHOLECALCIFEROL 5,000 UNITS 125 MCG TAB PO SCH (16:52)
[2021-09-29] MEDS ORDERED: traMADol HCL 50 MG TABLET PO PRN (17:50)
[2021-09-29] MEDS: TROLAMINE SALICYLATE 10% CRM 255 APPLN/85 GM TUBE EXT SCH ×2 (21:25→21:29)
[2021-09-29] MEDS: ACETAMINOPHEN 500 MG TAB PO SCH (21:25)
[2021-09-29] MEDS: QUEtiapine FUMARATE 200 MG TAB PO SCH (21:27)
[2021-09-29] MEDS: FUROSEMIDE 10 MG/ML 10 ML VIAL IV SCH (21:28)
[2021-09-29] MEDS: TAMSULOSIN HCL 0.4 MG CAP PO SCH (21:28)
[2021-09-29] MEDS: ZOLPIDEM TARTRATE 5 MG TAB PO PRN (23:07)
[2021-09-30] MEDS: ACETAMINOPHEN 500 MG TAB PO SCH ×3 (03:04→17:41)
[2021-09-30] MEDS: FUROSEMIDE 10 MG/ML 10 ML VIAL IV SCH ×3 (06:00→22:04)
[2021-09-30 07:19] LABS: Basophils # (auto) 0.02 K/uL (0-0.2); Basophils % (auto) 0.2 %; Eosinophils # (auto) 0.25 K/uL (0-0.5); Eosinophils % (auto) 2.1 %; Hemoglobin 12.5 g/dL (14.0-18.0); Immature Granulocytes % (auto) 0.9 %; Lymphocytes # (auto) 2.32 K/uL (1.2-3.4); Lymphocytes % (auto) 19.9 %; Mean Corpuscular Hemoglobin 27.1 pg (25-34); Mean Corpuscular Hgb Conc 32.9 g/dL (32-36); Mean Corpuscular Volume 82.3 fL (80-100); Mean Platelet Volume 9.7 fL (7.4-10.4); Monocytes # (auto) 0.94 K/uL (0.11-0.59); Monocytes % (auto) 8.1 %; Neutrophils % (auto) 68.8 %; Platelet Count 229 K/uL (130-400); RDW Coefficient of Variation 18.5 % (11.5-14.5); RDW Standard Deviation 55.7 fL (36.4-46.3); Red Blood Count 4.62 M/uL (4.7-6.1); White Blood Count 11.63 K/uL (4.8-10.8)
[2021-09-30 07:42] LABS: BUN Creatinine Ratio 16.9 (10-20); Calcium 9.1 mg/dl (8.5-10.1); Creatinine Clr Calc Pharmacy 45.7 ml/min; Est GFR (African American) 28.9 ml/min; Potassium 3.3 mmol/L (3.5-5.1)
[2021-09-30 07:44] LABS: Partial Thromboplastin Ratio 2.3; Prothrombin Time 19.6 Seconds (9.0-12.0)
[2021-09-30 08:21] LABS: Partial Thromboplastin Time 61.1 Seconds (21.0-31.0)
[2021-09-30] MEDS: FLUTICASONE/VILANTEROL 200/25MCG 14 PUFFS/INHALER INH SCH (08:34)
[2021-09-30] MEDS: ROSUVASTATIN CALCIUM 20 MG TAB PO SCH (08:35)
[2021-09-30] MEDS: metOLazone 5 MG TABLET PO SCH (08:35)
[2021-09-30] MEDS: ISOSORBIDE MONO EXTENDED REL 30 MG TABCR PO SCH (08:35)
[2021-09-30] MEDS: GABAPENTIN 600 MG TAB PO SCH ×2 (08:35→21:52)
[2021-09-30] MEDS: EZETIMIBE 10 MG TABLET PO SCH (08:35)
[2021-09-30] MEDS: TOPIRAMATE 25 MG TAB PO SCH ×2 (08:35→21:56)
[2021-09-30] MEDS: METOPROLOL SUCC 50MG EXT REL TAB PO SCH (08:35)
[2021-09-30] MEDS: ARIPiprazole 5 MG TAB PO SCH (08:35)
[2021-09-30] MEDS: lamoTRIgine 100 MG TAB PO SCH ×2 (08:36→21:53)
[2021-09-30] MEDS: SPIRONOLACTONE 25 MG TAB PO SCH ×2 (08:36→21:55)
[2021-09-30] MEDS: TROLAMINE SALICYLATE 10% CRM 255 APPLN/85 GM TUBE EXT SCH ×3 (08:36→21:56)
[2021-09-30] MEDS: POTASSIUM CHLORIDE CRTAB 20 MEQ TABCR PO SCH ×4 (08:41→21:54)
[2021-09-30] MEDS: HEPARIN SODIUM/DEXTROSE 25,000 UNITS/500 ML BAG IV SCH (09:32)
--- NOTE | 2021-09-30 10:25 | Cardiology Progress Note ---
Date of Service September 30, 2021 Assessment & Plan (1) Right-sided congestive heart failure: (2) Morbid obesity: (3) CKD (chronic kidney disease) stage 3, GFR 30-59 ml/min: (4) CAD (coronary artery disease): (5) Status post placement of cardiac pacemaker: (6) Chronic atrial fibrillation: (7) OSCAR (obstructive sleep apnea): (8) Cor pulmonale: Plan: Markedly complex, noncompliant, 61-year-old male admitted with recurrent (despite attempts at aggressive outpatient medical management) acute on chronic right greater than left biventricular congestive heart failure. Diuretics are being directed by Nephrology; requiring ongoing IV diuretic therapy. Recommend supplementing potassium orally, continuing spironolactone. Recommend BiPAP when sleeping throughout the day and at nighttime. Discontinue heparin now that INR is therapeutic. We will continue to follow. Admission and Anticipated Discharge Date Admission Date: September 27, 2021 Subjective Patient seen and examined. Chart, medications, and telemetry reviewed. Tired. Ongoing shortness of breath. Minimally improved fluid status per patient report. No chest pain. No palpitations. I's/O's -3955 mL overall, 2,895 mL on September 30, 2021 Weight down 2.4 kg since admission. Telemetry: Atrial fibrillation in the 80s, paced Hyponatremia minimally improved. Hypokalemia observed, with supplemental potassium already ordered by hospitalist. Creatinine increased mildly from 2.44 to 2.66. INR 2.0 this AM Review of Systems Review of Systems: Complete review of systems is otherwise as stated above, negative, or noncontributory. Physical Exam Physical Exam: General: A&Ox3. NAD. Morbidly obese Eyes: PER. Conjunctiva pink, sclera clear. HENT: Normocephalic. Atraumatic. Neck: Very thick. I could not appreciate JVD or HJR. No carotid bruits. Heart: Slightly irregular in the 70's. No murmur appreciated. Lungs: Diminished. Decreased. Clear to auscultation. Abdomen: Large. +BS. Somewhat firm. No organomegaly. Extremities: 1+ edema. No clubbing. No cyanosis. Limited neurological examination is without focal deficits. Pulses: radial=2/4, posterior tibial=0/4. Results & Data ([facility]) Vital Signs (Past 12 Hours) Vital Signs Temp Pulse Pulse Resp BP BP Pulse Ox 09/30/21 08:00 36.6 C 77 24 113/72 92 09/30/21 07:25 76 09/30/21 03:47 35.9 C L 68 20 104/60 98 09/30/21 03:01 69 13 95 09/29/21 23:45 22 94 09/29/21 23:23 36.8 C 76 20 98/61 L 96 Laboratory Results Laboratory Results - last 24 hr 09/30/21 09/30/21 09/30/21 06:59 06:59 06:59 WBC 11.63 H RBC 4.62 L Hgb 12.5 L Hct 38.0 L MCV 82.3 MCH 27.1 MCHC 32.9 RDW Std Deviation 55.7 H RDW Coeff of Karlene 18.5 H Plt Count 229 MPV 9.7 Immature Gran % (Auto) 0.9 Neut % (Auto) 68.8 Lymph % (Auto) 19.9 Pacific % (Auto) 8.1 Eos % (Auto) 2.1 Baso % (Auto) 0.2 Neut # (Auto) 8.00 H Lymph # (Auto) 2.32 [place] # (Auto) 0.94 H Eos # (Auto) 0.25 Baso # (Auto) 0.02 Immature Gran # (Auto) 0.10 H PT 19.6 H INR 2.0 H APTT 61.1 H* PTT Ratio 2.3 Sodium 131 L Potassium 3.3 L Chloride 86 L Carbon Dioxide 34 H Anion Gap 11 BUN 45 H Creatinine 2.66 H Est Cr Clr Drug Dosing 45.7 Est GFR ( Amer) 28.9 Est GFR (Non-Af Amer) 25.0 BUN/Creatinine Ratio 16.9 Glucose 87 Calcium 9.1
--- NOTE | 2021-09-30 10:27 | Nephrology Progress Note ---
Date of Service September 30, 2021 Assessment & Plan Admission and Anticipated Discharge Date Admission Date: September 27, 2021 Subjective Subjective S---No new issues. remains SOB. Urine Incrased to 3600 ml. PHYSICAL EXAMINATION: GENERAL: The patient is morbidly obese. He appears to be uncomfortable, does have some respiratory distress, even at rest. He is awake, alert, oriented x3 and was able to give me a detailed account of his medication, as well as his problem list. VITAL SIGNS: Blood pressure is 119/56, pulse rate 71, temperature 36.5, 93% on BiPAP. HEENT: Mucous membrane is moist. NECK: Supple. Cannot assess JVD secondary to short, obese neck. CHEST: Bilateral decreased breath sounds, but very limited quality exam. CARDIOVASCULAR: Distant heart sound, irregular. Soft systolic murmur heard. ABDOMEN: Morbidly obese, abdominal wall edema. EXTREMITIES: Show chronic severe edema with chronic skin changes, 3-4+. LABORATORY TESTS: labs reviewed. Creat rising slowly. K low IMAGING DATA: Chest x-ray, cardiomegaly. No evidence of overt pulmonary edema. Duplex did not show any DVT. ASSESSMENT AND PLAN: A 61-year-old male with severe right-sided heart failure/c or pulmonale secondary to super morbid obesity and obstructive sleep apnea as well as multiple other medical problems, now admitted with worsening fluid retention and shortness of breath. The patient has chronic kidney disease secondary to all his underlying medical problems. I have been consulted for diuretics management given the chronic kidney disease. Unfortunately, the patient is very noncompliant with clinic appointments and has been admitted frequently in the recent past with exactly the same problem. He is already on a super maximal outpatient diuretics dose of torsemide 100 twice daily, spironolactone 50 twice daily, and metolazone 3 times a week. I am not 100% sure what he does with his medication given his frequent hospital admission nor am I certain what he does with his fluid restriction or salt intake. His current creatinine of 2.19 is pretty much baseline. He needs to be diuresed. I agree with Lasix 80 twice daily, but he may need higher dose and that is reasona ble. I would also add metolazone 5 mg daily for now and continue the Aldactone 50 twice daily. Rec: 1. Conitnue to aim for a urine output of around 4 liters per day for now while inpt at least. He made 3600 yesterday. Continue lasix to 100 iv q8hr and metolazone 5 daily and aldactone 50bid. he can have some rise in BUN,creat and Co2. Slight rise in Creat from yesterday but that is acceptable. Low k from Diuresis--give kcl 40 bid. . Results & Data ([facility]) Vital Signs (Past 12 Hours) Vital Signs Temp Pulse Pulse Resp BP BP Pulse Ox 09/30/21 08:00 36.6 C 77 24 113/72 92 09/30/21 07:25 76 09/30/21 03:47 35.9 C L 68 20 104/60 98 09/30/21 03:01 69 13 95 09/29/21 23:45 22 94 09/29/21 23:23 36.8 C 76 20 98/61 L 96
[2021-09-30] MEDS: CHOLECALCIFEROL 5,000 UNITS 125 MCG TAB PO SCH (16:11)
[2021-09-30] MEDS: WARFARIN SOD 5 MG TAB PO SCH (16:11)
--- NOTE | 2021-09-30 18:02 | Hospitalist Progress Note ---
Date of Service September 30, 2021 Assessment & Plan (1) Acute on chronic right-sided heart failure: Plan: Acute on chronic right sided HFpEF Hypoxia CXR showed: Showed no evidence of overt pulmonary edema. Last ECHO: EF 55 to 60%. Moderate concentric LVH. Hold usual PO diuretics--torsemide, metoprolol UOP has improved on increased lasix, metolazone and aldactone. Cont PO potassium supplementation as needed. Daily BMP/lytes monitoring. Cont daily standing weights (4kg down), I/Os, fluid restriction Low sodium diet Oxygen support PRN/BIPAP at night per home regimen. Monitor renal function/electrolytes Cardiology and Nephrology consulted (2) Noncompliance: Plan: historically with medications? and dietary and fluid restrictions as instructed. (3) Chronic atrial fibrillation: Plan: Chronic atrial fibrillation sick sinus syndrome S/P PPM INR therapeutic, stopping heparin drip. Continue Coumadin Monitor INR Continue metoprolol (4) Elevated d-dimer: Plan: Elevated D-dimer Doppler US:No DVT within the right or left lower extremity. Could not obtain CTA given renal insufficiency Likely would not belt changer given anticoagulation (5) CAD (coronary artery disease): Plan: Coronary artery disease S/P CABG Hypertension chronic, stable/at goal, Continue home medications (6) Elevated troponin: Plan: Chronic troponin elevation In setting of CKD, CHF Patient denies any chest pain EKG showed no signs of acute ischemia (7) Morbid obesity: Plan: Chronic hyponatremia Likely secondary to diuretics and antipsychotics Sodium 129 Monitor CKD III b Creatinine 2.1, baseline Nephrology consulted to help with IV diuresis given CKD Obstructive sleep apnea on BiPAP HS COPD chronic, stable without signs of exacerbation Continue home inhalers Chronic back pain no reported issues, cont current management. DVT Px: Coumadin Code Status Full Code Georgia Valencia DO [facility] Hospitalist Admission and Anticipated Discharge Date Admission Date: September 27, 2021 Admission and Anticipated Discharge Date Admission Date: September 27, 2021 Subjective 61 yo M admitted for acute on chronic right sided heart failure reports an improvement in SOB although still SOB at rest not much of a change today but he reports that he is improving tolerating PO denies chest pain afebrile no leg swelling Review of Systems Review of Systems: All systems were reviewed and negative except as indicated in subjective above. Physical Exam Physical Exam: CONSTITUTIONAL: morbidly obese, vitals as above, generally well-appearing, NAD EYES: normal conjunctivae, no scleral icterus ENT: external ear and nose normal, MMM NECK: trachea midline, RESPIRATORY: clear to auscultation bilaterally, diminished breath sounds at bases, no crackles, rales or wheezes, normal respiratory effort, min conversational dyspnea. CARDIOVASCULAR: regular rate and rhythm, S1 and 2 heard without murmurs, gallops or rubs, no JVD, no peripheral edema, CHEST: inspection of chest was normal GASTROINTESTINAL: soft, protuberant, nontender, ND, no guarding MUSCULOSKELETAL: strength 5/5 throughout, head is normocephalic and atraumatic, some difficulty moving around the bed but ultimately he can do this independently SKIN: warm and dry, NEUROLOGIC: No facial palsy, no dysarthria. CN 2-12 grossly intact, no sensory deficit, normal cognition, normal speech, no tremor PSYCHIATRIC: alert cooperative and oriented to person, place and time. Results & Data Results & Data ([facility]) Vital Signs (Past 12 Hours) Vital Signs Temp Pulse Pulse Resp BP BP Pulse Ox 09/30/21 15:22 74 09/30/21 14:42 36.4 C L 74 18 115/60 97 09/30/21 13:17 09/30/21 11:00 36.3 C L 60 20 97/62 L 95 09/30/21 08:00 36.6 C 77 24 113/72 92 09/30/21 07:25 76 Pulse Ox Pulse Ox Pulse Ox 09/30/21 15:22 09/30/21 14:42 09/30/21 13:17 98 96 93 09/30/21 11:00 09/30/21 08:00 09/30/21 07:25 Laboratory Results Short CBC 09/30/21 Range/Units 06:59 WBC 11.63 H (4.8-10.8) K/uL Hgb 12.5 L (14.0-18.0) g/dL Hct 38.0 L (42-52) % Plt Count 229 (130-400) K/uL BMP 09/30/21 06:59 Sodium 131 L Potassium 3.3 L Chloride 86 L Carbon Dioxide 34 H BUN 45 H Creatinine 2.66 H Glucose 87 Calcium 9.1 Medications Administered Current Inpatient Medications Acetaminophen (Acetaminophen 500 Mg Tab) 1,000 mg PO Q8H [facility] Stop: 10/29/21 17:59 Last Admin: 09/30/21 17:41 Dose: 1,000 mg Documented by: Albuterol (Albuterol Hfa 8 Gm Inhaler) 2 puffs INH QID PRN PRN Reason: Shortness Of Breath Or Wheezing Stop: 10/27/21 18:36 Albuterol (Albuterol 0.083% Nebu Soln 3 Ml Vial) 2.5 mg INH Q6 PRN; Protocol PRN Reason: Shortness Of Breath Or Wheezing Stop: 10/27/21 18:36 Last Admin: 09/27/21 23:21 Dose: 2.5 mg Documented by: Aripiprazole (Aripiprazole 5 Mg Tab) 5 mg PO QAM [facility] Stop: 10/28/21 08:59 Last Admin: 09/30/21 08:35 Dose: 5 mg Documented by: Ezetimibe (Ezetimibe 10 Mg Tablet) 10 mg PO DAILY [facility] Stop: 10/28/21 08:59 Last Admin: 09/30/21 08:35 Dose: 10 mg Documented by: Fluticasone/Vilanterol (Fluticasone/Vilanterol 200/25mcg 14 Puffs/Inhaler) 1 puffs INH DAILY [facility] Stop: 10/28/21 08:59 Last Admin: 09/30/21 08:34 Dose: 1 puffs Documented by: Furosemide (Furosemide 10 Mg/Ml 10 Ml Vial) 100 mg IV Q8H [facility] Stop: 10/29/21 21:59 Last Admin: 09/30/21 14:50 Dose: 100 mg Documented by: Gabapentin (Gabapentin 600 Mg Tab) 600 mg PO BID [facility] Stop: 10/27/21 20:59 Last Admin: 09/30/21 08:35 Dose: 600 mg Documented by: Isosorbide Mononitrate (Isosorbide [place] Extended Rel 30 Mg Tabcr) 30 mg PO QAM [facility] Stop: 10/28/21 08:59 Last Admin: 09/30/21 08:35 Dose: 30 mg Documented by: Lamotrigine (Lamotrigine 100 Mg Tab) 200 mg PO BID [facility] Stop: 10/27/21 20:59 Last Admin: 09/30/21 08:36 Dose: 200 mg Documented by: Metolazone (Metolazone 5 Mg Tablet) 5 mg PO QAM [facility] Stop: 10/28/21 09:59 Last Admin: 09/30/21 08:35 Dose: 5 mg Documented by: Metoprolol Succinate (Metoprolol Succ 50mg Ext Rel Tab) 50 mg PO DAILY [facility] Stop: 10/28/21 08:59 Last Admin: 09/30/21 08:35 Dose: 50 mg Documented by: Nitroglycerin (Nitroglycerin Sl 0.4 Mg/Tab Tab) 0.4 mg SL UD PRN PRN Reason: Chest Pain Stop: 10/27/21 18:36 Ondansetron HCl (Ondansetron Inj 2 Mg/Ml 2 Ml Vial) 4 mg IV Q6H PRN PRN Reason: Nausea Stop: 10/27/21 18:36 Polyethylene Glycol (Polyethylene (Miralax) 17 Gm Pack) 17 gm PO DAILY PRN PRN Reason: Constipation Stop: 10/27/21 18:36 Potassium Chloride (Potassium Chloride Crtab 20 Meq Tabcr) 40 meq PO BID [facility] Stop: 10/30/21 20:59 Quetiapine Fumarate (Quetiapine Fumarate 200 Mg Tab) 200 mg PO [facility] Stop: 10/27/21 20:59 Last Admin: 09/29/21 21:27 Dose: 200 mg Documented by: Rosuvastatin Calcium (Rosuvastatin Calcium 20 Mg Tab) 40 mg PO DAILY [facility] Stop: 10/28/21 08:59 Last Admin: 09/30/21 08:35 Dose: 40 mg Documented by: Spironolactone (Spironolactone 25 Mg Tab) 50 mg PO BID [facility] Stop: 10/27/21 20:59 Last Admin: 09/30/21 08:36 Dose: 50 mg Documented by: Tamsulosin HCl (Tamsulosin Hcl 0.4 Mg Cap) 0.4 mg PO HS [facility] Stop: 10/27/21 20:59 Last Admin: 09/29/21 21:28 Dose: 0.4 mg Documented by: Topiramate (Topiramate 25 Mg Tab) 25 mg PO BID [facility] Stop: 10/27/21 20:59 Last Admin: 09/30/21 08:35 Dose: 25 mg Documented by: Tramadol HCl (Tramadol Hcl 50 Mg Tablet) 50 mg PO Q12H PRN PRN Reason: severe pain Stop: 10/29/21 17:49 Trolamine Salicylate (Trolamine Salicylate 10% Crm 255 Appln/85 Gm Tube) 1 appln EXT TID [facility] Stop: 10/29/21 17:59 Last Admin: 09/30/21 14:50 Dose: 1 appln Documented by: Vitamin D (Cholecalciferol 5,000 Units 125 Mcg Tab) 5,000 units PO QDD [facility] Stop: 10/28/21 16:29 Last Admin: 09/30/21 16:11 Dose: 5,000 units Documented by: Warfarin Sodium (Warfarin Sod 5 Mg Tab) 5 mg PO DAILY@1600 [facility] Stop: 10/28/21 15:59 Last Admin: 09/30/21 16:11 Dose: 5 mg Documented by: Zolpidem Tartrate (Zolpidem Tartrate 5 Mg Tab) 5 mg PO HS PRN PRN Reason: Sleep Stop: 10/27/21 18:36 Last Admin: 09/29/21 23:07 Dose: 5 mg Documented by:
[2021-09-30] MEDS: QUEtiapine FUMARATE 200 MG TAB PO SCH (21:55)
[2021-09-30] MEDS: TAMSULOSIN HCL 0.4 MG CAP PO SCH (21:55)
[2021-09-30] MEDS: ZOLPIDEM TARTRATE 5 MG TAB PO PRN (23:07)
[2021-10-01] MEDS: ACETAMINOPHEN 500 MG TAB PO SCH ×3 (01:38→17:05)
[2021-10-01] MEDS: FUROSEMIDE 10 MG/ML 10 ML VIAL IV SCH ×3 (05:20→21:36)
[2021-10-01 08:23] LABS: BUN Creatinine Ratio 18.9 (10-20); Calcium 9.2 mg/dl (8.5-10.1); Creatinine Clr Calc Pharmacy 43.4 ml/min; Est GFR (African American) 27.2 ml/min; Est GFR (Non-African American) 23.5 ml/min; Magnesium 2.4 mg/dl (1.7-2.4); Potassium 3.5 mmol/L (3.5-5.1)
[2021-10-01] MEDS: FLUTICASONE/VILANTEROL 200/25MCG 14 PUFFS/INHALER INH SCH (08:24)
[2021-10-01] MEDS: SPIRONOLACTONE 25 MG TAB PO SCH ×2 (08:25→21:34)
[2021-10-01] MEDS: TROLAMINE SALICYLATE 10% CRM 255 APPLN/85 GM TUBE EXT SCH ×3 (08:25→21:35)
[2021-10-01] MEDS: lamoTRIgine 100 MG TAB PO SCH ×2 (08:25→21:34)
[2021-10-01] MEDS: POTASSIUM CHLORIDE CRTAB 20 MEQ TABCR PO SCH ×2 (08:25→21:33)
[2021-10-01] MEDS: GABAPENTIN 600 MG TAB PO SCH ×2 (08:25→21:33)
[2021-10-01] MEDS: TOPIRAMATE 25 MG TAB PO SCH ×2 (08:25→21:34)
[2021-10-01] MEDS: metOLazone 5 MG TABLET PO SCH (08:26)
[2021-10-01] MEDS: ROSUVASTATIN CALCIUM 20 MG TAB PO SCH (08:26)
[2021-10-01] MEDS: ARIPiprazole 5 MG TAB PO SCH (08:26)
[2021-10-01] MEDS: EZETIMIBE 10 MG TABLET PO SCH (08:26)
[2021-10-01] MEDS: METOPROLOL SUCC 50MG EXT REL TAB PO SCH (08:26)
[2021-10-01] MEDS: ISOSORBIDE MONO EXTENDED REL 30 MG TABCR PO SCH (08:26)
--- NOTE | 2021-10-01 09:25 | Cardiology Progress Note ---
Date of Service October 01, 2021 Assessment & Plan (1) Right-sided congestive heart failure: (2) Morbid obesity: (3) CKD (chronic kidney disease) stage 3, GFR 30-59 ml/min: (4) CAD (coronary artery disease): (5) Status post placement of cardiac pacemaker: (6) Chronic atrial fibrillation: (7) OSCAR (obstructive sleep apnea): (8) Cor pulmonale: Plan: Markedly complex, noncompliant, 61-year-old male admitted with recurrent (despite attempts at aggressive outpatient medical management) acute on chronic right greater than left biventricular congestive heart failure. Diuretics are being directed by Nephrology; requiring ongoing IV diuretic therapy. As per prior recommendations continue supplement potassium orally, continuing spironolactone. Recommend BiPAP when sleeping throughout the day and at nighttime. Discontinue heparin now that INR is therapeutic. We will continue to follow. Admission and Anticipated Discharge Date Admission Date: September 27, 2021 Subjective Patient was seen and examined, chart, medications, telemetry reviewed. Patient awake having breakfast. Notes restless night last night but no acute co mplaints. No arrhythmias on telemetry. Continues to manifest diuresis greater than 2 L yesterday. Lower extremity edema has been improving. Still with significant abdominal girth distention Review of Systems Review of Systems: All systems reviewed & are unremarkable except as noted in Subjective Physical Exam Constitutional: + morbidly obese; no acute distress Eyes: PERRL, conjunctivae normal, anicteric sclerae Neck: + thick neck Respiratory: no audible wheezes Auscultation: + diminished lung sounds Cardiovascular: Rate/Rhythm: regular rate (Paced rhythm) Heart Sounds: no murmur Extremities: + edema (2-3+ with increased abdominal girth as well) Musculoskeletal: Knee: + skin erythema (Lower extremities without skin breakdown) Results & Data ([facility]) Vital Signs (Past 12 Hours) Vital Signs Temp Pulse Pulse Resp BP BP Pulse Ox 10/01/21 07:24 76 10/01/21 07:00 36.6 C 71 20 112/73 93 10/01/21 03:30 36.4 C L 64 20 126/70 96 09/30/21 22:29 64 09/30/21 22:00 36.4 C L 79 20 147/68 H 94 09/30/21 21:58 112/71 Laboratory Results Laboratory Results - last 24 hr 10/01/21 07:12 Sodium 130 L Potassium 3.5 Chloride 85 L Carbon Dioxide 33 H Anion Gap 12 H BUN 53 H Creatinine 2.80 H Est Cr Clr Drug Dosing 43.4 Est GFR ( Amer) 27.2 Est GFR (Non-Af Amer) 23.5 BUN/Creatinine Ratio 18.9 Glucose 84 Calcium 9.2 Magnesium 2.4
[2021-10-01] MEDS: ALBUTEROL 0.083% NEBU SOLN 3 ML VIAL INH PRN (09:59)
--- NOTE | 2021-10-01 12:03 | Nephrology Progress Note ---
Date of Service October 01, 2021 Assessment & Plan Admission and Anticipated Discharge Date Admission Date: September 27, 2021 Subjective Subjective S---No new issues. remains SOB. Urine Increased to 3900 ml. Now RA PHYSICAL EXAMINATION: GENERAL: The patient is morbidly obese. He appears to be uncomfortable, does have some respiratory distress, even at rest. He is awake, alert, oriented x3 and was able to give me a detailed account of his medication, as well as his problem list. VITAL SIGNS: Blood pressure is 119/56, pulse rate 71, temperature 36.5, 93% on BiPAP. HEENT: Mucous membrane is moist. NECK: Supple. Cannot assess JVD secondary to short, obese neck. CHEST: Bilateral decreased breath sounds, but very limited quality exam. CARDIOVASCULAR: Distant heart sound, irregular. Soft systolic murmur heard. ABDOMEN: Morbidly obese, abdominal wall edema. EXTREMITIES: Show chronic severe edema with chronic skin changes, 3-4+. LABORATORY TESTS: labs reviewed. Creat rising slowly. K low IMAGING DATA: Chest x-ray, cardiomegaly. No evidence of overt pulmonary edema. Duplex did not show any DVT. ASSESSMENT AND PLAN: A 61-year-old male with severe right-sided heart fa ilure/cor pulmonale secondary to super morbid obesity and obstructive sleep apnea as well as multiple other medical problems, now admitted with worsening fluid retention and shortness of breath. The patient has chronic kidney disease secondary to all his underlying medical problems. I have been consulted for diuretics management given the chronic kidney disease. Unfortunately, the patient is very noncompliant with clinic appointments and has been admitted frequently in the recent past with exactly the same problem. He is already on a super maximal outpatient diuretics dose of torsemide 100 twice daily, spironolactone 50 twice daily, and metolazone 3 times a week. I am not 100% sure what he does with his medication given his frequent hospital admission nor am I certain what he does with his fluid restriction or salt intake. His current creatinine of 2.19 is pretty much baseline. He needs to be diuresed. I agree with Lasix 80 twice daily, but he may need higher dose and that is reasonable. I would also add metolazone 5 mg daily for now and continue the Aldactone 50 twice daily. Rec: 1. Continue to aim for a urine output of around 4 liters per day ( for his body size and retention this is not a lot) for now while inpt at least. He made 3900 yesterday. Continue lasix to 100 iv q8hr and metolazone 5 daily and aldactone 50bid. he can have some rise in BUN,creat and Co2. Slight rise in Creat from yesterday but that is acceptable. maybe one more day of lasix 100 iv q8r. Can taper from tomorrow Low k from Diuresis--give kcl 40 bid while aggressive Diuresis but may not need outpt. . Results & Data ([facility]) Vital Signs (Past 12 Hours) Vital Signs Temp Pulse Pulse Resp BP BP Pulse Ox 10/01/21 11:35 36.4 C L 65 18 121/68 97 10/01/21 09:59 91 H 20 96 10/01/21 07:24 76 10/01/21 07:00 36.6 C 71 20 112/73 93 10/01/21 03:30 36.4 C L 64 20 126/70 96
[2021-10-01] MEDS: HEPARIN 100 UNIT/ML 5ML FLUSH FLUSH PRN ×2 (13:44→19:37)
[2021-10-01] MEDS: WARFARIN SOD 5 MG TAB PO SCH (17:07)
[2021-10-01] MEDS: CHOLECALCIFEROL 5,000 UNITS 125 MCG TAB PO SCH (17:07)
--- NOTE | 2021-10-01 19:04 | Hospitalist Progress Note ---
Date of Service October 01, 2021 Assessment & Plan (1) Acute on chronic right-sided heart failure: Plan: Acute on chronic right sided HFpEF Hypoxia CXR showed: Showed no evidence of overt pulmonary edema. Last ECHO: EF 55 to 60%. Moderate concentric LVH. Hold usual PO diuretics--torsemide, metoprolol Cont increased lasix, metolazone and aldactone. Good UOP, nephro managing. Cont PO potassium supplementation as needed. Daily BMP/lytes monitoring. Cont daily standing weights (4kg down), I/Os, fluid restriction Low sodium diet Oxygen support PRN/BIPAP at night per home regimen. Monitor renal function/electrolytes Cardiology and Nephrology consulted (2) Noncompliance: Plan: historically with medications? and dietary and fluid restrictions as instructed. (3) Chronic atrial fibrillation: Plan: Chronic atrial fibrillation sick sinus syndrome S/P PPM INR therapeutic,heparin drip stopped. Continue Coumadin Monitor INR Continue metoprolol (4) Elevated d-dimer: Plan: Elevated D-dimer Doppler US:No DVT within the right or left lower extremity. Could not obtain CTA given renal insufficiency Likely would not interchange agent given anticoagulation (5) CAD (coronary artery disease): Plan: Coronary artery disease S/P CABG Hypertension chronic, stable/at goal, Continue home medications (6) Elevated troponin: Plan: Chronic troponin elevation In setting of CKD, CHF Patient denies any chest pain EKG showed no signs of acute ischemia (7) Morbid obesity: Plan: Chronic hyponatremia Likely secondary to diuretics and antipsychotics Sodium 130 EDSON on chronic kidney disease, stage 3 2/2 diuresis Creatinine 2.1, baseline Now up to 2.8 with ongoing diuresis. Nephrology consulted to help with IV diuresis given CKD Obstructive sleep apnea on BiPAP HS COPD chronic, stable without signs of exacerbation Continue home inhalers Chronic back pain no reported issues, cont current management. DVT Px: Coumadin Code Status Full Code [facility] Admission and Anticipated Discharge Date Admission Date: September 27, 2021 Admission and Anticipated Discharge Date Admission Date: September 27, 2021 Subjective 61 yo M admitted for acute on chronic right sided heart failure still with some SOB not much of a change today but he reports that he is improving tolerating PO denies chest pain afebrile no leg swelling Review of Systems Review of Systems: All systems were reviewed and negative except as indicated in subjective above. Physical Exam Physical Exam: CONSTITUTIONAL: morbidly obese, vitals as above, generally well-appearing, NAD EYES: normal conjunctivae, no scleral icterus ENT: external ear and nose normal, MMM NECK: trachea midline, RESPIRATORY: clear to auscultation bilaterally, diminished breath sounds at bases, no crackles, rales or wheezes, normal respiratory effort, min conversational dyspnea. CARDIOVASCULAR: regular rate and rhythm, S1 and 2 heard without murmurs, gallops or rubs, no JVD, no peripheral edema, CHEST: inspection of chest was normal GASTROINTESTINAL: soft, protuberant, nontender, ND, no guarding MUSCULOSKELETAL: strength 5/5 throughout, head is normocephalic and atraumatic, some difficulty moving around the bed but ultimately he can do this independently SKIN: warm and dry, NEUROLOGIC: No facial palsy, no dysarthria. CN 2-12 grossly intact, no sensory deficit, normal cognition, normal speech, no tremor PSYCHIATRIC: alert cooperative and oriented to person, place and time. Results & Data Results & Data ([facility]) Vital Signs (Past 12 Hours) Vital Signs Temp Pulse Pulse Resp BP BP Pulse Ox 10/01/21 18:00 10/01/21 16:07 74 10/01/21 15:07 37.1 C 72 18 128/70 95 10/01/21 11:35 36.4 C L 65 18 121/68 97 10/01/21 09:59 91 H 20 96 10/01/21 07:24 76 10/01/21 07:00 36.6 C 71 20 112/73 93 Pulse Ox 10/01/21 18:00 95 10/01/21 16:07 10/01/21 15:07 10/01/21 11:35 10/01/21 09:59 10/01/21 07:24 10/01/21 07:00 Laboratory Results BMP 10/01/21 07:12 Sodium 130 L Potassium 3.5 Chloride 85 L Carbon Dioxide 33 H BUN 53 H Creatinine 2.80 H Glucose 84 Calcium 9.2 Medications Administered Current Inpatient Medications Acetaminophen (Acetaminophen 500 Mg Tab) 1,000 mg PO Q8H [facility] Stop: 10/29/21 17:59 Last Admin: 10/01/21 17:05 Dose: 1,000 mg Documented by: Albuterol (Albuterol Hfa 8 Gm Inhaler) 2 puffs INH QID PRN PRN Reason: Shortness Of Breath Or Wheezing Stop: 10/27/21 18:36 Albuterol (Albuterol 0.083% Nebu Soln 3 Ml Vial) 2.5 mg INH Q6 PRN; Protocol PRN Reason: Shortness Of Breath Or Wheezing Stop: 10/27/21 18:36 Last Admin: 10/01/21 09:59 Dose: 2.5 mg Documented by: Aripiprazole (Aripiprazole 5 Mg Tab) 5 mg PO QAM [facility] Stop: 10/28/21 08:59 Last Admin: 10/01/21 08:26 Dose: 5 mg Documented by: Ezetimibe (Ezetimibe 10 Mg Tablet) 10 mg PO DAILY [facility] Stop: 10/28/21 08:59 Last Admin: 10/01/21 08:26 Dose: 10 mg Documented by: Fluticasone/Vilanterol (Fluticasone/Vilanterol 200/25mcg 14 Puffs/Inhaler) 1 puffs INH DAILY [facility] Stop: 10/28/21 08:59 Last Admin: 10/01/21 08:24 Dose: 1 puffs Documented by: Furosemide (Furosemide 10 Mg/Ml 10 Ml Vial) 100 mg IV Q8H [facility] Stop: 10/29/21 21:59 Last Admin: 10/01/21 13:44 Dose: 100 mg Documented by: Gabapentin (Gabapentin 600 Mg Tab) 600 mg PO BID [facility] Stop: 10/27/21 20:59 Last Admin: 10/01/21 08:25 Dose: 600 mg Documented by: Heparin Sodium (Porcine) (Heparin 100 Unit/Ml 5ml Flush) 5 ml FLUSH PRN PRN PRN Reason: Flush Stop: 10/31/21 07:19 Last Admin: 10/01/21 13:44 Dose: 5 ml Documented by: Isosorbide Mononitrate (Isosorbide [place] Extended Rel 30 Mg Tabcr) 30 mg PO QAM [facility] Stop: 10/28/21 08:59 Last Admin: 10/01/21 08:26 Dose: 30 mg Documented by: Lamotrigine (Lamotrigine 100 Mg Tab) 200 mg PO BID [facility] Stop: 10/27/21 20:59 Last Admin: 10/01/21 08:25 Dose: 200 mg Documented by: Metolazone (Metolazone 5 Mg Tablet) 5 mg PO QAM [facility] Stop: 10/28/21 09:59 Last Admin: 10/01/21 08:26 Dose: 5 mg Documented by: Metoprolol Succinate (Metoprolol Succ 50mg Ext Rel Tab) 50 mg PO DAILY [facility] Stop: 10/28/21 08:59 Last Admin: 10/01/21 08:26 Dose: 50 mg Documented by: Nitroglycerin (Nitroglycerin Sl 0.4 Mg/Tab Tab) 0.4 mg SL UD PRN PRN Reason: Chest Pain Stop: 10/27/21 18:36 Ondansetron HCl (Ondansetron Inj 2 Mg/Ml 2 Ml Vial) 4 mg IV Q6H PRN PRN Reason: Nausea Stop: 10/27/21 18:36 Polyethylene Glycol (Polyethylene (Miralax) 17 Gm Pack) 17 gm PO DAILY PRN PRN Reason: Constipation Stop: 10/27/21 18:36 Potassium Chloride (Potassium Chloride Crtab 20 Meq Tabcr) 40 meq PO BID [facility] Stop: 10/30/21 20:59 Last Admin: 10/01/21 08:25 Dose: 40 meq Documented by: Quetiapine Fumarate (Quetiapine Fumarate 200 Mg Tab) 200 mg PO HS [facility] Stop: 10/27/21 20:59 Last Admin: 09/30/21 21:55 Dose: 200 mg Documented by: Rosuvastatin Calcium (Rosuvastatin Calcium 20 Mg Tab) 40 mg PO DAILY [facility] Stop: 10/28/21 08:59 Last Admin: 10/01/21 08:26 Dose: 40 mg Documented by: Spironolactone (Spironolactone 25 Mg Tab) 50 mg PO BID [facility] Stop: 10/27/21 20:59 Last Admin: 10/01/21 08:25 Dose: 50 mg Documented by: Tamsulosin HCl (Tamsulosin Hcl 0.4 Mg Cap) 0.4 mg PO HS [facility] Stop: 10/27/21 20:59 Last Admin: 09/30/21 21:55 Dose: 0.4 mg Documented by: Topiramate (Topiramate 25 Mg Tab) 25 mg PO BID [facility] Stop: 10/27/21 20:59 Last Admin: 10/01/21 08:25 Dose: 25 mg Documented by: Tramadol HCl (Tramadol Hcl 50 Mg Tablet) 50 mg PO Q12H PRN PRN Reason: severe pain Stop: 10/29/21 17:49 Trolamine Salicylate (Trolamine Salicylate 10% Crm 255 Appln/85 Gm Tube) 1 appln EXT TID [facility] Stop: 10/29/21 17:59 Last Admin: 10/01/21 13:43 Dose: 1 appln Documented by: Vitamin D (Cholecalciferol 5,000 Units 125 Mcg Tab) 5,000 units PO QDD [facility] Stop: 10/28/21 16:29 Last Admin: 10/01/21 17:07 Dose: 5,000 units Documented by: Warfarin Sodium (Warfarin Sod 5 Mg Tab) 5 mg PO DAILY@1600 [facility] Stop: 10/28/21 15:59 Last Admin: 10/01/21 17:07 Dose: 5 mg Documented by: Zolpidem Tartrate (Zolpidem Tartrate 5 Mg Tab) 5 mg PO HS PRN PRN Reason: Sleep Stop: 10/27/21 18:36 Last Admin: 09/30/21 23:07 Dose: 5 mg Documented by:
[2021-10-01] MEDS: ONDANSETRON INJ 2 MG/ML 2 ML VIAL IV PRN (19:37)
[2021-10-01] MEDS: TAMSULOSIN HCL 0.4 MG CAP PO SCH (21:33)
[2021-10-01] MEDS: QUEtiapine FUMARATE 200 MG TAB PO SCH (23:03)
[2021-10-01] MEDS: ZOLPIDEM TARTRATE 5 MG TAB PO PRN (23:04)
[2021-10-02] MEDS: ACETAMINOPHEN 500 MG TAB PO SCH (02:26)
[2021-10-02] MEDS: FUROSEMIDE 10 MG/ML 10 ML VIAL IV SCH ×3 (05:13→22:48)
[2021-10-02 06:41] LABS: BUN Creatinine Ratio 22.1 (10-20); Calcium 9.3 mg/dl (8.5-10.1); Creatinine Clr Calc Pharmacy 45.8 ml/min; Est GFR (African American) 28.8 ml/min; Est GFR (Non-African American) 24.8 ml/min; Magnesium 2.5 mg/dl (1.7-2.4); Potassium 3.7 mmol/L (3.5-5.1)
[2021-10-02] MEDS: ISOSORBIDE MONO EXTENDED REL 30 MG TABCR PO SCH (08:08)
[2021-10-02] MEDS: metOLazone 5 MG TABLET PO SCH (08:08)
[2021-10-02] MEDS: METOPROLOL SUCC 50MG EXT REL TAB PO SCH (08:08)
[2021-10-02] MEDS: EZETIMIBE 10 MG TABLET PO SCH (08:09)
[2021-10-02] MEDS: ROSUVASTATIN CALCIUM 20 MG TAB PO SCH (08:09)
[2021-10-02] MEDS: GABAPENTIN 600 MG TAB PO SCH ×2 (08:09→20:04)
[2021-10-02] MEDS: ARIPiprazole 5 MG TAB PO SCH (08:09)
[2021-10-02] MEDS: TOPIRAMATE 25 MG TAB PO SCH ×2 (08:10→20:07)
[2021-10-02] MEDS: SPIRONOLACTONE 25 MG TAB PO SCH ×2 (08:10→20:06)
[2021-10-02] MEDS: POTASSIUM CHLORIDE CRTAB 20 MEQ TABCR PO SCH ×2 (08:10→20:05)
[2021-10-02] MEDS: lamoTRIgine 100 MG TAB PO SCH ×2 (08:10→20:04)
[2021-10-02] MEDS: TROLAMINE SALICYLATE 10% CRM 255 APPLN/85 GM TUBE EXT SCH (08:11)
[2021-10-02] MEDS: FLUTICASONE/VILANTEROL 200/25MCG 14 PUFFS/INHALER INH SCH (08:11)
[2021-10-02] MEDS: HEPARIN 100 UNIT/ML 5ML FLUSH FLUSH PRN (10:12)
[2021-10-02] MEDS: MICONAZOLE NITRATE POWDER 43 GM EXT PRN (11:00)
--- NOTE | 2021-10-02 11:07 | Nephrology Progress Note ---
Date of Service October 02, 2021 Assessment & Plan (1) Acute on chronic right-sided heart failure: Plan: Patient with acute on chronic right-sided heart failure. He is now requiring 3 L of oxygen nasal cannula. Patient was net -3 L yesterday. -Continue IV Lasix 100 mg 3 times daily, metolazone and Aldactone -Monitor input output -Daily standing weight if able (2) Acute renal insufficiency: Plan: Patient with the acute kidney injury due to cardiorenal syndrome. Creatinine is down to 2.7 today from 2.8 yesterday. Electrolytes are stable. We will continue diuresis as above. Avoid nephrotoxins and monitor renal function with a [facility] Admission and Anticipated Discharge Date Admission Date: September 27, 2021 Subjective Seen for acute kidney injury on CKD and CHF. He reports improvement in his breathing. Legs are still swollen. He was net -3 L yesterday Review of Systems Review of Systems: All other systems were reviewed and negative except as noted in HPI Physical Exam Physical Exam: General exam: Appears comfortable, no acute distress HEENT: Pupils are equal and reactive to light Neck: No JVD, neck is supple trachea is midline Respiratory system: Decreased breath sounds bilaterally. Gastrointestinal: Abdomen is soft, non distended, non tender, bowel sounds are present CVS: Regular rate and rhythm. No murmurs, rubs or gallops Musculoskeletal: No joint or muscle tenderness Extremities: Non tender, 1+ edema, peripheral pulses are present Neuro: Oriented, no tremors, no focal neurological deficits Skin: No rashes Results & Data ([facility]) Vital Signs (Past 12 Hours) Vital Signs Temp Pulse Pulse Resp BP Pulse Ox 10/02/21 11:00 36.5 C 68 22 94/66 L 97 10/02/21 07:00 36.2 C L 75 69 22 121/82 94 10/02/21 03:58 37 C 84 16 104/60 96 10/02/21 02:34 70 14 93 10/02/21 00:10 75 18 96 Laboratory Results 10/02/21 05:48
[2021-10-02 11:14] LABS: INR 2.7 (0.9-1.1); Prothrombin Time 25.6 Seconds (9.0-12.0)
--- NOTE | 2021-10-02 12:39 | Hospitalist Progress Note ---
Date of Service October 02, 2021 Assessment & Plan (1) Acute on chronic right-sided heart failure: Plan: Acute on chronic right sided HFpEF Hypoxia CXR showed: Showed no evidence of overt pulmonary edema. Last ECHO: EF 55 to 60%. Moderate concentric LVH. Hold usual PO diuretics--torsemide, metoprolol Cont current intravenous lasix, metolazone and aldactone at same rates. Creat improved today and net 3L out yesterday Requested standing weight to be recorded today and also daily in the morning. No built in bedscale weights. Cont PO potassium supplementation as needed. Daily BMP/lytes monitoring. Cont daily standing weights (4kg down??, need accurate weight), I/Os, fluid restriction Low sodium diet Oxygen support PRN/BIPAP at night per home regimen. Monitor renal function/electrolytes Cardiology and Nephrology consulted (2) Noncompliance: Plan: historically with medications? and dietary and fluid restrictions as instructed. We discussed some lifestyle modifications that would be needed to help him feel better starting weight loss efforts through changing his diet. Counseled him on ways to achieve this. (3) Chronic atrial fibrillation: Plan: Chronic atrial fibrillation sick sinus syndrome S/P PPM INR therapeutic,heparin drip stopped. Continue Coumadin Monitor INR Continue metoprolol (4) Elevated d-dimer: Plan: Elevated D-dimer Doppler US:No DVT within the right or left lower extremity. Could not obtain CTA given renal insufficiency Likely would not change person given anticoagulation (5) CAD (coronary artery disease): Plan: Coronary artery disease S/P CABG Hypertension chronic, stable/at goal, Continue home medications (6) Elevated troponin: Plan: Chronic troponin elevation In setting of CKD, CHF Patient denies any chest pain EKG showed no signs of acute ischemia (7) Morbid obesity: Plan: Chronic hyponatremia Likely secondary to diuretics and antipsychotics Sodium 130 EDSON on chronic kidney disease, stage 3 2/2 diuresis Creatinine 2.1, baseline Now up to 2.8 with ongoing diuresis. Nephrology consulted to help with IV diuresis given CKD Obstructive sleep apnea on BiPAP HS COPD chronic, stable without signs of exacerbation Continue home inhalers Chronic back pain no reported issues, cont current management. DVT Px: Coumadin Code Status Full Code [facility] Admission and Anticipated Discharge Date Admission Date: September 27, 2021 Subjective 61 yo M admitted for acute on chronic right sided heart failure denies SOB, reports decreased abdominal girth tolerating PO denies chest pain afebrile no leg swelling Review of Systems Review of Systems: All systems were reviewed and negative except as indicated in subjective above. Physical Exam Physical Exam: CONSTITUTIONAL: morbidly obese, vitals as above, generally well-appearing, NAD EYES: normal conjunctivae, no scleral icterus ENT: external ear and nose normal, MMM NECK: trachea midline, RESPIRATORY: clear to auscultation bilaterally, diminished breath sounds at bases, no crackles, rales or wheezes, normal respiratory effort, min conversational dyspnea. CARDIOVASCULAR: regular rate and rhythm, S1 and 2 heard without murmurs, gallops or rubs, no JVD, no peripheral edema, CHEST: inspection of chest was normal GASTROINTESTINAL: soft, protuberant, nontender, ND, no guarding MUSCULOSKELETAL: strength 5/5 throughout, head is normocephalic and atraumatic, some difficulty moving around the bed but ultimately he can do this independently SKIN: warm and dry, NEUROLOGIC: No facial palsy, no dysarthria. CN 2-12 grossly intact, no sensory deficit, normal cognition, normal speech, no tremor PSYCHIATRIC: alert cooperative and oriented to person, place and time. Results & Data Results & Data ([facility]) Vital Signs (Past 12 Hours) Vital Signs Temp Pulse Pulse Resp BP Pulse Ox 10/02/21 11:00 36.5 C 68 22 94/66 L 97 10/02/21 07:00 36.2 C L 75 69 22 121/82 94 10/02/21 03:58 37 C 84 16 104/60 96 10/02/21 02:34 70 14 93 Laboratory Results [facility] 10/02/21 05:48 Sodium 130 L Potassium 3.7 Chloride 84 L Carbon Dioxide 33 H BUN 59 H Creatinine 2.67 H Glucose 95 Calcium 9.3 Medications Administered Current Inpatient Medications Acetaminophen (Acetaminophen 500 Mg Tab) 1,000 mg PO Q8H PRN PRN Reason: pain or fever Stop: 10/29/21 17:59 Albuterol (Albuterol Hfa 8 Gm Inhaler) 2 puffs INH QID PRN PRN Reason: Shortness Of Breath Or Wheezing Stop: 10/27/21 18:36 Albuterol (Albuterol 0.083% Nebu Soln 3 Ml Vial) 2.5 mg INH Q6 PRN; Protocol PRN Reason: Shortness Of Breath Or Wheezing Stop: 10/27/21 18:36 Last Admin: 10/01/21 09:59 Dose: 2.5 mg Documented by: Aripiprazole (Aripiprazole 5 Mg Tab) 5 mg PO QAM [facility] Stop: 10/28/21 08:59 Last Admin: 10/02/21 08:09 Dose: 5 mg Documented by: Ezetimibe (Ezetimibe 10 Mg Tablet) 10 mg PO DAILY [facility] Stop: 10/28/21 08:59 Last Admin: 10/02/21 08:09 Dose: 10 mg Documented by: Fluticasone/Vilanterol (Fluticasone/Vilanterol 200/25mcg 14 Puffs/Inhaler) 1 puffs INH DAILY [facility] Stop: 10/28/21 08:59 Last Admin: 10/02/21 08:11 Dose: 1 puffs Documented by: Furosemide (Furosemide 10 Mg/Ml 10 Ml Vial) 100 mg IV Q8H [facility] Stop: 10/29/21 21:59 Last Admin: 10/02/21 05:13 Dose: 100 mg Documented by: Gabapentin (Gabapentin 600 Mg Tab) 600 mg PO BID [facility] Stop: 10/27/21 20:59 Last Admin: 10/02/21 08:09 Dose: 600 mg Documented by: Heparin Sodium (Porcine) (Heparin 100 Unit/Ml 5ml Flush) 5 ml FLUSH PRN PRN PRN Reason: Flush Stop: 10/31/21 07:19 Last Admin: 10/02/21 10:12 Dose: 5 ml Documented by: Isosorbide Mononitrate (Isosorbide Andrew Extended Rel 30 Mg Tabcr) 30 mg PO QAM [facility] Stop: 10/28/21 08:59 Last Admin: 10/02/21 08:08 Dose: 30 mg Documented by: Lamotrigine (Lamotrigine 100 Mg Tab) 200 mg PO BID [facility] Stop: 10/27/21 20:59 Last Admin: 10/02/21 08:10 Dose: 200 mg Documented by: Metolazone (Metolazone 5 Mg Tablet) 5 mg PO QAM [facility] Stop: 10/28/21 09:59 Last Admin: 10/02/21 08:08 Dose: 5 mg Documented by: Metoprolol Succinate (Metoprolol Succ 50mg Ext Rel Tab) 50 mg PO DAILY [facility] Stop: 10/28/21 08:59 Last Admin: 10/02/21 08:08 Dose: 50 mg Documented by: Miconazole Nitrate (Miconazole Nitrate Powder 43 Gm) 1 appln EXT PRN PRN PRN Reason: Affected Skin Folds Stop: 11/01/21 09:24 Last Admin: 10/02/21 11:00 Dose: 1 appln Documented by: Nitroglycerin (Nitroglycerin Sl 0.4 Mg/Tab Tab) 0.4 mg SL UD PRN PRN Reason: Chest Pain Stop: 10/27/21 18:36 Ondansetron HCl (Ondansetron Inj 2 Mg/Ml 2 Ml Vial) 4 mg IV Q6H PRN PRN Reason: Nausea Stop: 10/27/21 18:36 Last Admin: 10/01/21 19:37 Dose: 4 mg Documented by: Polyethylene Glycol (Polyethylene (Miralax) 17 Gm Pack) 17 gm PO DAILY PRN PRN Reason: Constipation Stop: 10/27/21 18:36 Potassium Chloride (Potassium Chloride Crtab 20 Meq Tabcr) 40 meq PO BID [facility] Stop: 10/30/21 20:59 Last Admin: 10/02/21 08:10 Dose: 40 meq Documented by: Quetiapine Fumarate (Quetiapine Fumarate 200 Mg Tab) 200 mg PO HS [facility] Stop: 10/27/21 20:59 Last Admin: 10/01/21 23:03 Dose: 200 mg Documented by: Rosuvastatin Calcium (Rosuvastatin Calcium 20 Mg Tab) 40 mg PO DAILY [facility] Stop: 10/28/21 08:59 Last Admin: 10/02/21 08:09 Dose: 40 mg Documented by: Spironolactone (Spironolactone 25 Mg Tab) 50 mg PO BID [facility] Stop: 10/27/21 20:59 Last Admin: 10/02/21 08:10 Dose: 50 mg Documented by: Tamsulosin HCl (Tamsulosin Hcl 0.4 Mg Cap) 0.4 mg PO [facility] Stop: 10/27/21 20:59 Last Admin: 10/01/21 21:33 Dose: 0.4 mg Documented by: Topiramate (Topiramate 25 Mg Tab) 25 mg PO BID [facility] Stop: 10/27/21 20:59 Last Admin: 10/02/21 08:10 Dose: 25 mg Documented by: Tramadol HCl (Tramadol Hcl 50 Mg Tablet) 50 mg PO Q12H PRN PRN Reason: severe pain Stop: 10/29/21 17:49 Trolamine Salicylate (Trolamine Salicylate 10% Crm 255 Appln/85 Gm Tube) 1 appln EXT TID PRN PRN Reason: back pain Stop: 10/29/21 17:59 Vitamin D (Cholecalciferol 5,000 Units 125 Mcg Tab) 5,000 units PO QDD [facility] Stop: 10/28/21 16:29 Last Admin: 10/01/21 17:07 Dose: 5,000 units Documented by: Warfarin Sodium (Warfarin Sod 5 Mg Tab) 5 mg PO DAILY@1600 [facility] Stop: 10/28/21 15:59 Last Admin: 10/01/21 17:07 Dose: 5 mg Documented by: Zolpidem Tartrate (Zolpidem Tartrate 5 Mg Tab) 5 mg PO HS PRN PRN Reason: Sleep Stop: 10/27/21 18:36 Last Admin: 10/01/21 23:04 Dose: 5 mg Documented by:
[2021-10-02] MEDS: CHOLECALCIFEROL 5,000 UNITS 125 MCG TAB PO SCH (18:06)
[2021-10-02] MEDS: WARFARIN SOD 5 MG TAB PO SCH (18:06)
[2021-10-02] MEDS: TAMSULOSIN HCL 0.4 MG CAP PO SCH (20:07)
[2021-10-02] MEDS: QUEtiapine FUMARATE 200 MG TAB PO SCH (22:43)
[2021-10-02] MEDS: ZOLPIDEM TARTRATE 5 MG TAB PO PRN (22:43)
[2021-10-03] MEDS: HEPARIN 100 UNIT/ML 5ML FLUSH FLUSH PRN (05:43)
[2021-10-03] MEDS: FUROSEMIDE 10 MG/ML 10 ML VIAL IV SCH ×3 (05:43→22:52)
[2021-10-03] MEDS: ROSUVASTATIN CALCIUM 20 MG TAB PO SCH (07:46)
[2021-10-03] MEDS: ARIPiprazole 5 MG TAB PO SCH (07:46)
[2021-10-03] MEDS: metOLazone 5 MG TABLET PO SCH (07:47)
[2021-10-03] MEDS: METOPROLOL SUCC 50MG EXT REL TAB PO SCH (07:47)
[2021-10-03] MEDS: EZETIMIBE 10 MG TABLET PO SCH (07:48)
[2021-10-03] MEDS: ISOSORBIDE MONO EXTENDED REL 30 MG TABCR PO SCH (07:48)
[2021-10-03] MEDS: GABAPENTIN 600 MG TAB PO SCH ×2 (07:49→21:58)
[2021-10-03] MEDS: SPIRONOLACTONE 25 MG TAB PO SCH ×2 (07:49→22:01)
[2021-10-03] MEDS: lamoTRIgine 100 MG TAB PO SCH ×2 (07:49→21:59)
[2021-10-03] MEDS: TOPIRAMATE 25 MG TAB PO SCH (07:50)
[2021-10-03] MEDS: POTASSIUM CHLORIDE CRTAB 20 MEQ TABCR PO SCH ×2 (07:50→22:00)
[2021-10-03] MEDS: FLUTICASONE/VILANTEROL 200/25MCG 14 PUFFS/INHALER INH SCH (07:51)
[2021-10-03 08:22] LABS: INR 3.1 (0.9-1.1); Prothrombin Time 29.1 Seconds (9.0-12.0)
[2021-10-03 08:29] LABS: BUN Creatinine Ratio 22.8 (10-20); Calcium 9.9 mg/dl (8.5-10.1); Creatinine Clr Calc Pharmacy 43.2 ml/min; Est GFR (African American) 27.7 ml/min; Est GFR (Non-African American) 23.9 ml/min; Potassium 3.7 mmol/L (3.5-5.1)
--- NOTE | 2021-10-03 09:14 | Nephrology Progress Note ---
Date of Service October 03, 2021 Assessment & Plan (1) Acute on chronic right-sided heart failure: Plan: Patient with acute on chronic right-sided heart failure. He is now requiring 3 L of oxygen nasal cannula. Patient was net -3 L yesterday. -Continue IV Lasix 100 mg 3 times daily, metolazone and Aldactone -Monitor input output -Daily standing weight if able (2) Acute renal insufficiency: Plan: Patient with the acute kidney injury due to cardiorenal syndrome. Creatinine is stable at 2.7. Electrolytes are stable. We will continue diuresis as above. Avoid nephrotoxins and monitor renal function with a [facility] Admission and Anticipated Discharge Date Admission Date: September 27, 2021 Subjective Seen in follow-up for acute kidney injury and CHF. He reports intermittent shortness of breath last night. He is still net -1 L. Blood pressure is controlled. Review of Systems Review of Systems: All other systems were reviewed and negative except as noted in HPI Physical Exam Physical Exam: General exam: Appears comfortable, no acute distress HEENT: Pupils are equal and reactive to light Neck: No JVD, neck is supple trachea is midline Respiratory system: Decreased breath sounds bilaterally. Gastrointestinal: Abdomen is soft, non distended, non tender, bowel sounds are present CVS: Regular rate and rhythm. No murmurs, rubs or gallops Musculoskeletal: No joint or muscle tenderness Extremities: Non tender, 1+ edema, peripheral pulses are present Neuro: Oriented, no tremors, no focal neurological deficits Skin: No rashes Results & Data ([facility]) Vital Signs (Past 12 Hours) Vital Signs Temp Pulse Pulse Resp BP Pulse Ox 10/03/21 07:10 86 10/03/21 07:00 36.4 C L 97 H 22 118/74 96 10/03/21 03:54 86 22 95 10/03/21 03:07 36.3 C L 71 22 116/67 95 10/03/21 00:55 69 15 96 10/02/21 22:19 36.9 C 91 H 78 22 133/72 95 Laboratory Results 10/03/21 07:39
--- NOTE | 2021-10-03 10:20 | Hospitalist Progress Note ---
Date of Service October 03, 2021 Assessment & Plan (1) Acute on chronic right-sided heart failure: Plan: Acute on chronic right sided HFpEF Hypoxia Net 1L out overnight; down 7 kg since admission per standing weight recorded today (183-->176kg) Continue current regimen of Lasix 100 mg every 8 hours, spironolactone and metolazone Monitor daily output monitor daily standing weight if able Daily BMP. (2) Noncompliance: Plan: historically with medications? and dietary and fluid restrictions as instructed. We discussed some lifestyle modifications that would be needed to help him feel better starting weight loss efforts through changing his diet. Counseled him on ways to achieve this. (3) Chronic atrial fibrillation: Plan: Chronic atrial fibrillation sick sinus syndrome S/P PPM INR therapeutic,heparin drip stopped. Continue Coumadin Monitor INR which is currently therapeutic Continue metoprolol (4) Elevated d-dimer: Plan: Elevated D-dimer Doppler US:No DVT within the right or left lower extremity. 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 Goal would be overall decrease percent body fat and increased lean muscle mass. Plan: Chronic hyponatremia Likely secondary to diuretics and antipsychotics Sodium 130 EDSON on chronic kidney disease, stage 3 2/2 diuresis Creatinine 2.1, baseline Remains around 2.7 with ongoing diuresis. Nephrology consulted to help with IV diuresis given CKD Tremor worsened resting tremor per patient, and lightheadedness with ambulation. Holding topiramate for now. Electrolytes may also be contributing Will cont to monitor. Obstructive sleep apnea on BiPAP HS COPD chronic, stable without signs of exacerbation Continue home inhalers Chronic back pain chronic, stable, cont current management. DVT Px: Coumadin Code Status Full Code Georgia Valencia DO [facility] Hospitalist Admission and Anticipated Discharge Date Admission Date: September 27, 2021 Subjective 61 yo M admitted for acute on chronic right sided heart failure Ports breathing is improved Reports that he has feeling more tremulous and shaky generally, also lightheaded with walking around earlier today We discussed that he is on multiple medications that can contribute to this both individually and from a polypharmacy perspective and that his sodium is low for the last few days We agreed upon holding his topiramate for the time being He is otherwise feeling well denying chest pain or other issues. Review of Systems Review of Systems: All systems were reviewed and negative except as indicated in subjective above. Physical Exam Physical Exam: CONSTITUTIONAL: morbidly obese, vitals as above, generally well-appearing, NAD EYES: normal conjunctivae, no scleral icterus ENT: external ear and nose normal, MMM NECK: trachea midline, RESPIRATORY: clear to auscultation bilaterally, diminished breath sounds at bases, no crackles, rales or wheezes, normal respiratory effort, min conversational dyspnea. CARDIOVASCULAR: regular rate and rhythm, S1 and 2 heard without murmurs, gallops or rubs, no JVD, no peripheral edema, CHEST: inspection of chest was normal GASTROINTESTINAL: soft, protuberant, nontender, ND, no guarding MUSCULOSKELETAL: strength 5/5 throughout, head is normocephalic and atraumatic, some difficulty moving around the bed but ultimately he can do this independently SKIN: warm and dry, NEUROLOGIC: No facial palsy, no dysarthria. CN 2-12 grossly intact, no sensory deficit, normal cognition, normal speech, +bilateral resting tremor in hands PSYCHIATRIC: alert cooperative and oriented to person, place and time. Results & Data Results & Data ([facility]) Vital Signs (Past 12 Hours) Vital Signs Temp Pulse Pulse Resp BP Pulse Ox 10/03/21 07:10 86 10/03/21 07:00 36.4 C L 97 H 22 118/74 96 10/03/21 03:54 86 22 95 10/03/21 03:07 36.3 C L 71 22 116/67 95 10/03/21 00:55 69 15 96 Laboratory Results [facility] 10/03/21 07:39 Sodium 129 L Potassium 3.7 Chloride 82 L Carbon Dioxide 36 H BUN 63 H Creatinine 2.76 H Glucose 83 Calcium 9.9 Medications Administered Current Inpatient Medications Acetaminophen (Acetaminophen 500 Mg Tab) 1,000 mg PO Q8H PRN PRN Reason: pain or fever Stop: 10/29/21 17:59 Albuterol (Albuterol Hfa 8 Gm Inhaler) 2 puffs INH QID PRN PRN Reason: Shortness Of Breath Or Wheezing Stop: 10/27/21 18:36 Albuterol (Albuterol 0.083% Nebu Soln 3 Ml Vial) 2.5 mg INH Q6 PRN; Protocol PRN Reason: Shortness Of Breath Or Wheezing Stop: 10/27/21 18:36 Last Admin: 10/01/21 09:59 Dose: 2.5 mg Documented by: Aripiprazole (Aripiprazole 5 Mg Tab) 5 mg PO QAM [facility] Stop: 10/28/21 08:59 Last Admin: 10/03/21 07:46 Dose: 5 mg Documented by: Ezetimibe (Ezetimibe 10 Mg Tablet) 10 mg PO DAILY [facility] Stop: 10/28/21 08:59 Last Admin: 10/03/21 07:48 Dose: 10 mg Documented by: Fluticasone/Vilanterol (Fluticasone/Vilanterol 200/25mcg 14 Puffs/Inhaler) 1 puffs INH DAILY [facility] Stop: 10/28/21 08:59 Last Admin: 10/03/21 07:51 Dose: 1 puffs Documented by: Furosemide (Furosemide 10 Mg/Ml 10 Ml Vial) 100 mg IV Q8H [facility] Stop: 10/29/21 21:59 Last Admin: 10/03/21 05:43 Dose: 100 mg Documented by: Gabapentin (Gabapentin 600 Mg Tab) 600 mg PO BID [facility] Stop: 10/27/21 20:59 Last Admin: 10/03/21 07:49 Dose: 600 mg Documented by: Heparin Sodium (Porcine) (Heparin 100 Unit/Ml 5ml Flush) 5 ml FLUSH PRN PRN PRN Reason: Flush Stop: 10/31/21 07:19 Last Admin: 10/03/21 05:43 Dose: 5 ml Documented by: Isosorbide Mononitrate (Isosorbide Peach Extended Rel 30 Mg Tabcr) 30 mg PO QAM [facility] Stop: 10/28/21 08:59 Last Admin: 10/03/21 07:48 Dose: 30 mg Documented by: Lamotrigine (Lamotrigine 100 Mg Tab) 200 mg PO BID [facility] Stop: 10/27/21 20:59 Last Admin: 10/03/21 07:49 Dose: 200 mg Documented by: Metolazone (Metolazone 5 Mg Tablet) 5 mg PO QAM [facility] Stop: 10/28/21 09:59 Last Admin: 10/03/21 07:47 Dose: 5 mg Documented by: Metoprolol Succinate (Metoprolol Succ 50mg Ext Rel Tab) 50 mg PO DAILY [facility] Stop: 10/28/21 08:59 Last Admin: 10/03/21 07:47 Dose: 50 mg Documented by: Miconazole Nitrate (Miconazole Nitrate Powder 43 Gm) 1 appln EXT PRN PRN PRN Reason: Affected Skin Folds Stop: 11/01/21 09:24 Last Admin: 10/02/21 11:00 Dose: 1 appln Documented by: Nitroglycerin (Nitroglycerin Sl 0.4 Mg/Tab Tab) 0.4 mg SL UD PRN PRN Reason: Chest Pain Stop: 10/27/21 18:36 Ondansetron HCl (Ondansetron Inj 2 Mg/Ml 2 Ml Vial) 4 mg IV Q6H PRN PRN Reason: Nausea Stop: 10/27/21 18:36 Last Admin: 10/01/21 19:37 Dose: 4 mg Documented by: Polyethylene Glycol (Polyethylene (Miralax) 17 Gm Pack) 17 gm PO DAILY PRN PRN Reason: Constipation Stop: 10/27/21 18:36 Potassium Chloride (Potassium Chloride Crtab 20 Meq Tabcr) 40 meq PO BID [facility] Stop: 10/30/21 20:59 Last Admin: 10/03/21 07:50 Dose: 40 meq Documented by: Quetiapine Fumarate (Quetiapine Fumarate 200 Mg Tab) 200 mg PO HS [facility] Stop: 10/27/21 20:59 Last Admin: 10/02/21 22:43 Dose: 200 mg Documented by: Rosuvastatin Calcium (Rosuvastatin Calcium 20 Mg Tab) 40 mg PO DAILY [facility] Stop: 10/28/21 08:59 Last Admin: 10/03/21 07:46 Dose: 40 mg Documented by: Spironolactone (Spironolactone 25 Mg Tab) 50 mg PO BID [facility] Stop: 10/27/21 20:59 Last Admin: 10/03/21 07:49 Dose: 50 mg Documented by: Tamsulosin HCl (Tamsulosin Hcl 0.4 Mg Cap) 0.4 mg PO [facility] Stop: 10/27/21 20:59 Last Admin: 10/02/21 20:07 Dose: 0.4 mg Documented by: Topiramate (Topiramate 25 Mg Tab) 25 mg PO BID [facility] Stop: 10/27/21 20:59 Last Admin: 10/03/21 07:50 Dose: 25 mg Documented by: Tramadol HCl (Tramadol Hcl 50 Mg Tablet) 50 mg PO Q12H PRN PRN Reason: severe pain Stop: 10/29/21 17:49 Trolamine Salicylate (Trolamine Salicylate 10% Crm 255 Appln/85 Gm Tube) 1 appln EXT TID PRN PRN Reason: back pain Stop: 10/29/21 17:59 Vitamin D (Cholecalciferol 5,000 Units 125 Mcg Tab) 5,000 units PO QDD [facility] Stop: 10/28/21 16:29 Last Admin: 10/02/21 18:06 Dose: 5,000 units Documented by: Warfarin Sodium (Warfarin Sod 5 Mg Tab) 5 mg PO DAILY@1600 [facility] Stop: 10/28/21 15:59 Last Admin: 10/02/21 18:06 Dose: 5 mg Documented by: Zolpidem Tartrate (Zolpidem Tartrate 5 Mg Tab) 5 mg PO HS PRN PRN Reason: Sleep Stop: 10/27/21 18:36 Last Admin: 10/02/21 22:43 Dose: 5 mg Documented by:
[2021-10-03] MEDS: WARFARIN SOD 5 MG TAB PO SCH (15:37)
[2021-10-03] MEDS: CHOLECALCIFEROL 5,000 UNITS 125 MCG TAB PO SCH (15:38)
[2021-10-03] MEDS: ACETAMINOPHEN 500 MG TAB PO PRN (15:39)
[2021-10-03] MEDS: TROLAMINE SALICYLATE 10% CRM 255 APPLN/85 GM TUBE EXT PRN (15:41)
[2021-10-03] MEDS: ZOLPIDEM TARTRATE 5 MG TAB PO PRN (21:58)
[2021-10-03] MEDS: TAMSULOSIN HCL 0.4 MG CAP PO SCH (22:02)
[2021-10-03] MEDS: QUEtiapine FUMARATE 200 MG TAB PO SCH (22:02)
[2021-10-04] MEDS: FUROSEMIDE 10 MG/ML 10 ML VIAL IV SCH ×3 (06:18→23:13)
[2021-10-04 07:50] LABS: BUN Creatinine Ratio 22.4 (10-20); Calcium 9.4 mg/dl (8.5-10.1); Creatinine Clr Calc Pharmacy 38.3 ml/min; Est GFR (African American) 23.9 ml/min; Est GFR (Non-African American) 20.6 ml/min; Potassium 3.6 mmol/L (3.5-5.1)
--- NOTE | 2021-10-04 08:15 | Nephrology Progress Note ---
Date of Service October 04, 2021 Assessment & Plan (1) Acute on chronic right-sided heart failure: Plan: Patient with acute on chronic right-sided heart failure. He is on RA this aM; was on 3L most of yesterday. Patient was net -3.1L neg 10/02; net 1L neg yesterday. First standing wt this hospitalization is 178.3 on 10/02; pt at 176.5 today. renal function worsening -lowered IV Lasix dose to 60 mg 3 times daily; cont same metolazone and Aldactone -daily bmp; renal function may well worsen further before stabilizing -Monitor input output strictly -continue daily standing weights -tightened FR 1.2L; added low Na diet (2) Acute renal insufficiency: Plan: Patient with the acute kidney injury due to cardiorenal syndrome. Creatinine worse today; chemistries acceptable We will continue diuresis as above. Avoid nephrotoxins and monitor renal function with a BMP Admission and Anticipated Discharge Date Admission Date: September 27, 2021 Subjective seen on rounds at 10 AM; no c/o sob; states edema improving; notes worse tremor Review of Systems Review of Systems: Other (limited by pt cognitive status) Physical Exam Constitutional: well developed, well nourished and + morbidly obese; no acute distress Eyes: EOM intact bilaterally ENMT: Ears: no external ear abnormality Nose: no external nose abnormality Mouth: + dry oral mucous membranes Neck: no nuchal rigidity Respiratory: normal respiratory effort Auscultation: + diminished lung sounds Cardiovascular: Rate/Rhythm: regular rate and regular rhythm Extremities: + edema (trace-1+ BLE) Gastrointestinal (Abdomen): Inspection/Auscultation: normal bowel sounds Percussion/Palpation: abdomen soft; abdomen nontender Musculoskeletal: Extremities: strength 5/5 throughout Skin: no rashes, warm and dry Neurologic: riley, fluent speech, no tremor Psychiatric: Orientation: oriented to person and oriented to place Insight: + limited insight Results & Data ([facility]) Vital Signs (Past 12 Hours) Vital Signs Temp Pulse Pulse Pulse Resp BP BP 10/04/21 07:30 36.5 C 86 13 102/62 10/04/21 04:17 121/79 10/04/21 03:08 70 10/04/21 02:32 36.1 C L 73 20 98/63 L 10/03/21 22:32 37 C 80 22 132/61 Pulse Ox 02/28/22 07:30 93 10/04/21 04:17 10/04/21 03:08 94 10/04/21 02:32 94 10/03/21 22:32 96 Laboratory Results 09/30/21 06:59 10/04/21 07:05
[2021-10-04] MEDS: ACETAMINOPHEN 500 MG TAB PO PRN (08:37)
[2021-10-04] MEDS: ISOSORBIDE MONO EXTENDED REL 30 MG TABCR PO SCH (08:38)
[2021-10-04] MEDS: POTASSIUM CHLORIDE CRTAB 20 MEQ TABCR PO SCH ×2 (08:38→20:41)
[2021-10-04] MEDS: SPIRONOLACTONE 25 MG TAB PO SCH ×2 (08:38→20:42)
[2021-10-04] MEDS: METOPROLOL SUCC 50MG EXT REL TAB PO SCH (08:38)
[2021-10-04] MEDS: ROSUVASTATIN CALCIUM 20 MG TAB PO SCH (08:39)
[2021-10-04] MEDS: metOLazone 5 MG TABLET PO SCH (08:39)
[2021-10-04] MEDS: lamoTRIgine 100 MG TAB PO SCH ×2 (08:39→20:42)
[2021-10-04] MEDS: EZETIMIBE 10 MG TABLET PO SCH (08:39)
[2021-10-04] MEDS: ARIPiprazole 5 MG TAB PO SCH (08:39)
[2021-10-04] MEDS: GABAPENTIN 600 MG TAB PO SCH ×2 (08:39→20:42)
[2021-10-04] MEDS: TROLAMINE SALICYLATE 10% CRM 255 APPLN/85 GM TUBE EXT PRN ×2 (08:40→20:43)
[2021-10-04] MEDS: FLUTICASONE/VILANTEROL 200/25MCG 14 PUFFS/INHALER INH SCH (08:40)
[2021-10-04] MEDS: MICONAZOLE NITRATE POWDER 43 GM EXT PRN (08:41)
--- NOTE | 2021-10-04 08:49 | Cardiology Progress Note ---
Date of Service October 04, 2021 Assessment & Plan (1) Right-sided congestive heart failure: (2) Morbid obesity: (3) CKD (chronic kidney disease) stage 3, GFR 30-59 ml/min: (4) CAD (coronary artery disease): (5) Status post placement of cardiac pacemaker: (6) Chronic atrial fibrillation: (7) OSCAR (obstructive sleep apnea): (8) Cor pulmonale: Plan: Markedly complex, noncompliant, 61-year-old male admitted with recurrent (despite attempts at aggressive outpatient medical management) acute on chronic right greater than left biventricular congestive heart failure. Diuretics are being directed by Nephrology; requiring ongoing IV diuretic therapy. As per pr ior recommendations continue. Supplement potassium orally, continuing spironolactone. Recommend BiPAP when sleeping throughout the day and at nighttime. Agree with outpatient rehab. We will continue to follow. Case discussed with Dr. Ariza. Admission and Anticipated Discharge Date Admission Date: September 27, 2021 Supervising Physician Co-Signing Physician Notes Patient seen and examined, chart reviewed. Assessment and plan as above. Diuretics being managed through nephrology ultimate goals stabilization of chronic biventricular heart failure. Patient struggles with management as an outpatient and rehab being evaluated Subjective Patient was seen and examined, chart, medications, telemetry reviewed. Patient alert and oriented resting in bed. No acute complaints. No arrhythmias on te lemetry. Continues to diuresis on IV Lasix.Lower extremity edema has been improving. Still with significant abdominal distention. Orthopnea improved. Wearing BiPAP over night. Has been working with PT, voices concern- patient would like to attend an in patient rehab following this admission. Tele: Paced/Afib in the 70s Weight:176.5kg I&O: -11.3L Review of Systems Review of Systems: All systems reviewed & are unremarkable except as noted in HPI & below Physical Exam Physical Exam: Constitutional:M + morbidly obese; no acute distress Eyes: PERRL, conjunctiva e normal, anicteri c sclerae Neck: + thick neck Respiratory: no audible wheezes Auscultation: + diminished lung so unds Cardiovascular:M Rate/Rhythm: regul ar rate (Paced rhy thm) Heart Sounds : no murmur Extre mities: + 1 edema (+increased abdomi nal girth as well) Musculoskeletal: Knee: + skin eryth nathen (Lower extremi ties without skin breakdown) Results & Data ([facility]) Vital Signs (Past 12 Hours) Vital Signs Temp Pulse Pulse Pulse Resp BP BP 10/04/21 07:30 36.5 C 86 13 102/62 10/04/21 04:17 121/79 10/04/21 03:08 70 10/04/21 02:32 36.1 C L 73 20 98/63 L 10/03/21 22:32 37 C 80 22 132/61 Pulse Ox 10/04/21 07:30 93 10/04/21 04:17 10/04/21 03:08 94 10/04/21 02:32 94 10/03/21 22:32 96 Laboratory Results 10/04/21 Range/Units 07:05 Sodium 129 L (136-145) mmol/L Potassium 3.6 (3.5-5.1) mmol/L Chloride 82 L (98-107) mmol/L Carbon Dioxide 36 H (21-32) mmol/L Anion Gap 11 (3-11) BUN 70 H (6-23) mg/dl Creatinine 3.12 H D (0.6-1.4) mg/dl Est Cr Clr Drug Dosing 38.3 ml/min Est GFR ( Amer) 23.9 ml/min Est GFR (Non-Af Amer) 20.6 ml/min BUN/Creatinine Ratio 22.4 H (10-20) Glucose 90 (70-99(Fasting)) mg/dl Calcium 9.4 (8.5-10.1) mg/dl
--- NOTE | 2021-10-04 13:25 | Hospitalist Progress Note ---
Date of Service October 04, 2021 Assessment & Plan (1) Acute on chronic right-sided heart failure: Plan: Acute on chronic right sided HFpEF Hypoxia Net <1L out overnight; down 8 kg since admission per standing weight recorded today (183-->174kg) With elevated creatinine, bicarb and tremulousness reported, decreasing lasix to 60mg IV q8hr per nephrology. Cont metolazone 5mg PO daily and spironolactone 50mg BID Monitor daily output monitor daily standing weight Daily BMP. (2) Noncompliance: Plan: historically with medications? and dietary and fluid restrictions as instructed. We discussed some lifestyle modifications that would be needed to help him feel better starting weight loss efforts through changing his diet. Counseled him on ways to achieve this. (3) Chronic atrial fibrillation: Plan: Chronic atrial fibrillation sick sinus syndrome S/P PPM INR therapeutic,heparin drip stopped. Continue Coumadin Monitor INR which is currently therapeutic Continue metoprolol (4) Elevated d-dimer: Plan: Elevated D-dimer Doppler US:No DVT within the right or left lower extremity. Could not obtain CTA given renal insufficiency Likely would not credit risk management director given anticoagulation (5) CAD (coronary artery disease): Plan: Coronary artery disease S/P CABG Hypertension chronic, stable/at goal, Continue home medications (6) Elevated troponin: Plan: Chronic troponin elevation In setting of CKD, CHF Patient denies any chest pain EKG this admission showed no signs of acute ischemia (7) Morbid obesity: Plan: Counseled on lifestyle modifications including the importance of diet modification. Goal would be overall decrease percent body fat and increased lean muscle mass. Plan: Chronic hyponatremia Likely secondary to diuretics and antipsychotics, decreased lasix as above. Sodium 129 EDSON on chronic kidney disease, stage 3 2/2 diuresis Creatinine 2.1, baseline Increased to 3.1 with ongoing diuresis ; backed off on this today. Nephrology consulted to help with IV diuresis given CKD Tremor worsened resting tremor per patient, and lightheadedness with ambulation. Holding topiramate for now. Electrolytes may also be contributing Will cont to monitor with changes as above. Obstructive sleep apnea on BiPAP HS COPD chronic, stable without signs of exacerbation Continue home inhalers Chronic back pain chronic, stable, cont current management. DVT Px: Coumadin Code Status Full Code Georgia Valencia DO [facility] Hospitalist Admission and Anticipated Discharge Date Admission Date: September 27, 2021 Subjective 61 yo M admitted for acute on chronic right sided heart failure Breathing improved Patient remains tremulous and slightly lightheaded with ambulation Creatinine up to 3.12, bicarb up, not diuresis approximately 6 to 700 cc overnight Overall weight loss of 8 kg since admission Patient states he has no chest pain and feels he still has fluid to get off of him. Review of Systems Review of Systems: All systems were reviewed and negative except as indicated in subjective above. Physical Exam Physical Exam: CONSTITUTIONAL: morbidly obese, vitals as above, generally well-appearing, NAD EYES: normal conjunctivae, no scleral icterus ENT: external ear and nose normal, MMM NECK: trachea midline, RESPIRATORY: clear to auscultation bilaterally, diminished breath sounds at bases, no crackles, rales or wheezes, normal respiratory effort, min conversational dyspnea. CARDIOVASCULAR: regular rate and rhythm, S1 and 2 heard without murmurs, gallops or rubs, no JVD, no peripheral edema, CHEST: inspection of chest was normal GASTROINTESTINAL: soft, protuberant, nontender, ND, no guarding MUSCULOSKELETAL: strength 5/5 throughout, head is normocephalic and atraumatic, some difficulty moving around the bed but ultimately he can do this independently SKIN: warm and dry, NEUROLOGIC: No facial palsy, no dysarthria. CN 2-12 grossly intact, no sensory deficit, normal cognition, normal speech, +bilateral resting tremor in hands PSYCHIATRIC: alert cooperative and oriented to person, place and time. Results & Data Results & Data ([facility]) Vital Signs (Past 12 Hours) Vital Signs Temp Pulse Pulse Pulse Resp BP BP 10/04/21 11:00 36.4 C L 79 16 110/58 L 10/04/21 07:30 36.5 C 86 13 102/62 10/04/21 07:00 66 10/04/21 04:17 121/79 10/04/21 03:08 70 10/04/21 02:32 36.1 C L 73 20 98/63 L Pulse Ox 10/04/21 11:00 93 10/04/21 07:30 93 10/04/21 07:00 10/04/21 04:17 10/04/21 03:08 94 10/04/21 02:32 94 Laboratory Results BMP 10/04/21 07:05 Sodium 129 L Potassium 3.6 Chloride 82 L Carbon Dioxide 36 H BUN 70 H Creatinine 3.12 H D Glucose 90 Calcium 9.4 Medications Administered Current Inpatient Medications Acetaminophen (Acetaminophen 500 Mg Tab) 1,000 mg PO Q8H PRN PRN Reason: pain or fever Stop: 10/29/21 17:59 Last Admin: 10/04/21 08:37 Dose: 1,000 mg Documented by: Albuterol (Albuterol Hfa 8 Gm Inhaler) 2 puffs INH QID PRN PRN Reason: Shortness Of Breath Or Wheezing Stop: 10/27/21 18:36 Albuterol (Albuterol 0.083% Nebu Soln 3 Ml Vial) 2.5 mg INH Q6 PRN; Protocol PRN Reason: Shortness Of Breath Or Wheezing Stop: 10/27/21 18:36 Last Admin: 10/01/21 09:59 Dose: 2.5 mg Documented by: Aripiprazole (Aripiprazole 5 Mg Tab) 5 mg PO QAM CHRISTINE Stop: 10/28/21 08:59 Last Admin: 10/04/21 08:39 Dose: 5 mg Documented by: Ezetimibe (Ezetimibe 10 Mg Tablet) 10 mg PO DAILY CHRISTINE Stop: 10/28/21 08:59 Last Admin: 10/04/21 08:39 Dose: 10 mg Documented by: Fluticasone/Vilanterol (Fluticasone/Vilanterol 200/25mcg 14 Puffs/Inhaler) 1 puffs INH DAILY CHRISTINE Stop: 10/28/21 08:59 Last Admin: 10/04/21 08:40 Dose: 1 puffs Documented by: Furosemide (Furosemide 10 Mg/Ml 10 Ml Vial) 60 mg IV Q8H CHRISTINE Stop: 11/03/21 13:59 Gabapentin (Gabapentin 600 Mg Tab) 600 mg PO BID [facility]RISTINE Stop: 10/27/21 20:59 Last Admin: 10/04/21 08:39 Dose: 600 mg Documented by: Heparin Sodium (Porcine) (Heparin 100 Unit/Ml 5ml Flush) 5 ml FLUSH PRN PRN PRN Reason: Flush Stop: 10/31/21 07:19 Last Admin: 10/03/21 05:43 Dose: 5 ml Documented by: Isosorbide Mononitrate (Isosorbide [place] Extended Rel 30 Mg Tabcr) 30 mg PO QAM [facility] Stop: 10/28/21 08:59 Last Admin: 10/04/21 08:38 Dose: 30 mg Documented by: Lamotrigine (Lamotrigine 100 Mg Tab) 200 mg PO BID [facility] Stop: 10/27/21 20:59 Last Admin: 10/04/21 08:39 Dose: 200 mg Documented by: Metolazone (Metolazone 5 Mg Tablet) 5 mg PO QAM [facility] Stop: 10/28/21 09:59 Last Admin: 10/04/21 08:39 Dose: 5 mg Documented by: Metoprolol Succinate (Metoprolol Succ 50mg Ext Rel Tab) 50 mg PO DAILY [facility] Stop: 10/28/21 08:59 Last Admin: 10/04/21 08:38 Dose: 50 mg Documented by: Miconazole Nitrate (Miconazole Nitrate Powder 43 Gm) 1 appln EXT PRN PRN PRN Reason: Affected Skin Folds Stop: 11/01/21 09:24 Last Admin: 10/04/21 08:41 Dose: 1 appln Documented by: Nitroglycerin (Nitroglycerin Sl 0.4 Mg/Tab Tab) 0.4 mg SL UD PRN PRN Reason: Chest Pain Stop: 10/27/21 18:36 Ondansetron HCl (Ondansetron Inj 2 Mg/Ml 2 Ml Vial) 4 mg IV Q6H PRN PRN Reason: Nausea Stop: 10/27/21 18:36 Last Admin: 10/01/21 19:37 Dose: 4 mg Documented by: Polyethylene Glycol (Polyethylene (Miralax) 17 Gm Pack) 17 gm PO DAILY PRN PRN Reason: Constipation Stop: 10/27/21 18:36 Potassium Chloride (Potassium Chloride Crtab 20 Meq Tabcr) 40 meq PO BID [facility] Stop: 10/30/21 20:59 Last Admin: 10/04/21 08:38 Dose: 40 meq Documented by: Quetiapine Fumarate (Quetiapine Fumarate 200 Mg Tab) 200 mg PO HS [facility] Stop: 10/27/21 20:59 Last Admin: 10/03/21 22:02 Dose: 200 mg Documented by: Rosuvastatin Calcium (Rosuvastatin Calcium 20 Mg Tab) 40 mg PO DAILY [facility] Stop: 10/28/21 08:59 Last Admin: 10/04/21 08:39 Dose: 40 mg Documented by: Spironolactone (Spironolactone 25 Mg Tab) 50 mg PO BID [facility] Stop: 10/27/21 20:59 Last Admin: 10/04/21 08:38 Dose: 50 mg Documented by: Tamsulosin HCl (Tamsulosin Hcl 0.4 Mg Cap) 0.4 mg PO HS [facility] Stop: 10/27/21 20:59 Last Admin: 10/03/21 22:02 Dose: 0.4 mg Documented by: Topiramate (Topiramate 25 Mg Tab) 25 mg PO BID [facility] Stop: 10/27/21 20:59 Last Admin: 10/03/21 07:50 Dose: 25 mg Documented by: Tramadol HCl (Tramadol Hcl 50 Mg Tablet) 50 mg PO Q12H PRN PRN Reason: severe pain Stop: 10/29/21 17:49 Trolamine Salicylate (Trolamine Salicylate 10% Crm 255 Appln/85 Gm Tube) 1 appln EXT TID PRN PRN Reason: back pain Stop: 10/29/21 17:59 Last Admin: 10/04/21 08:40 Dose: 1 appln Documented by: Vitamin D (Cholecalciferol 5,000 Units 125 Mcg Tab) 5,000 units PO QDD [facility] Stop: 10/28/21 16:29 Last Admin: 10/03/21 15:38 Dose: 5,000 units Documented by: Warfarin Sodium (Warfarin Sod 5 Mg Tab) 5 mg PO DAILY@1600 [facility] Stop: 10/28/21 15:59 Last Admin: 10/03/21 15:37 Dose: 5 mg Documented by: Zolpidem Tartrate (Zolpidem Tartrate 5 Mg Tab) 5 mg PO HS PRN PRN Reason: Sleep Stop: 10/27/21 18:36 Last Admin: 10/03/21 21:58 Dose: 5 mg Documented by:
[2021-10-04] MEDS ORDERED: COUGH DROP (SUGAR FREE) LOZ 24 LOZ/1 BOX BUCCAL PRN (14:32)
[2021-10-04] MEDS ORDERED: COUGH DROP (SUGAR FREE) LOZ 24 LOZ/1 BOX BUCCAL ONE (14:34)
[2021-10-04] MEDS: CHOLECALCIFEROL 5,000 UNITS 125 MCG TAB PO SCH (16:12)
[2021-10-04] MEDS: WARFARIN SOD 5 MG TAB PO SCH (16:12)
[2021-10-04] MEDS: TAMSULOSIN HCL 0.4 MG CAP PO SCH (20:43)
[2021-10-04] MEDS: QUEtiapine FUMARATE 200 MG TAB PO SCH (23:13)
[2021-10-04] MEDS: ZOLPIDEM TARTRATE 5 MG TAB PO PRN (23:13)
[2021-10-05] MEDS: FUROSEMIDE 10 MG/ML 10 ML VIAL IV SCH ×3 (06:16→21:36)
[2021-10-05] MEDS: HEPARIN 100 UNIT/ML 5ML FLUSH FLUSH PRN ×2 (06:21→21:41)
[2021-10-05] MEDS: TROLAMINE SALICYLATE 10% CRM 255 APPLN/85 GM TUBE EXT PRN ×2 (06:21→21:34)
[2021-10-05 07:30] LABS: INR 2.8 (0.9-1.1); Prothrombin Time 26.2 Seconds (9.0-12.0)
[2021-10-05 07:44] LABS: BUN Creatinine Ratio 26.7 (10-20); Calcium 9.6 mg/dl (8.5-10.1); Creatinine Clr Calc Pharmacy 38.3 ml/min; Est GFR (African American) 23.9 ml/min; Est GFR (Non-African American) 20.7 ml/min; Magnesium 2.6 mg/dl (1.7-2.4); Potassium 3.5 mmol/L (3.5-5.1)
[2021-10-05] MEDS: EZETIMIBE 10 MG TABLET PO SCH (07:56)
[2021-10-05] MEDS: metOLazone 5 MG TABLET PO SCH (07:56)
[2021-10-05] MEDS: ARIPiprazole 5 MG TAB PO SCH (07:56)
[2021-10-05] MEDS: METOPROLOL SUCC 50MG EXT REL TAB PO SCH (07:56)
[2021-10-05] MEDS: POTASSIUM CHLORIDE CRTAB 20 MEQ TABCR PO SCH ×2 (07:56→21:31)
[2021-10-05] MEDS: FLUTICASONE/VILANTEROL 200/25MCG 14 PUFFS/INHALER INH SCH (07:56)
[2021-10-05] MEDS: SPIRONOLACTONE 25 MG TAB PO SCH ×2 (07:57→21:33)
[2021-10-05] MEDS: ROSUVASTATIN CALCIUM 20 MG TAB PO SCH (07:57)
[2021-10-05] MEDS: GABAPENTIN 600 MG TAB PO SCH ×2 (07:57→21:32)
[2021-10-05] MEDS: ISOSORBIDE MONO EXTENDED REL 30 MG TABCR PO SCH (07:57)
[2021-10-05] MEDS: lamoTRIgine 100 MG TAB PO SCH ×2 (07:57→21:32)
--- NOTE | 2021-10-05 07:58 | Cardiology Progress Note ---
Date of Service October 05, 2021 Assessment & Plan (1) Right-sided congestive heart failure: (2) Morbid obesity: (3) CKD (chronic kidney disease) stage 3, GFR 30-59 ml/min: (4) CAD (coronary artery disease): (5) Status post placement of cardiac pacemaker: (6) Chronic atrial fibrillation: (7) OSCAR (obstructive sleep apnea): (8) Cor pulmonale: Plan: Markedly complex, noncompliant, 61-year-old male admitted with recurrent (despite attempts at aggressive outpatient medical management) acute on chronic right greater than left biventricular congestive heart failure. Diuretics are being directed by Nephrology; requiring ongoing IV diuretic therapy. Sodium low this am. FR reduced to 1200 mL per nephro. Supplement potassium orally, continuing spironolactone. Recommend BiPAP when sleeping throughout the day and at night. Agree with outpatient rehab. We will continue to follow. Case discussed with Dr. Ariza. Admission and Anticipated Discharge Date Admission Date: September 27, 2021 Supervising Physician Co-Signing Physician Notes Agree for assessment as above, case discussed with nephrology Subjective Patient was seen and examined, chart, medications, telemetry reviewed. Patient alert and oriented resting in bed. No acute complaints. No arrhythmias on telemetry. Continues to diuresis on IV Lasix.Lower extremity edema has been improving. Still with abdominal distention. Orthopnea improved. Wearing BiPAP over night. Has been working with PT, voices concern- patient would like to attend an in patient rehab following this admission. Tele: Paced/Afib in the 70s Weight:176.5 >> 75.6kg I&O: -11.3>>-15.4L Review of Systems Review of Systems: All systems reviewed & are unremarkable except as noted in HPI & below Physical Exam Physical Exam: Constitutional: + morbidly obese; no acute distress Eyes: PERRL, conjunctivae normal, anicteric sclerae Neck: + Thick neck Resp: No audible wheezes Auscultation: + diminished lung sounds CV: Rate/Rhythm: regular rate (Paced rhythm) Heart Sounds: no murmur Extremities: + 1 edema (+increased abdominal girth as well) MSK: Knee: + skin erythema (Lower extremities without skin breakdown) Results & Data ([facility]) Vital Signs (Past 12 Hours) Vital Signs Temp Pulse Pulse Resp BP Pulse Ox 10/05/21 07:22 72 10/05/21 07:00 36.3 C L 69 22 105/53 L 91 10/05/21 03:38 36 C L 82 20 136/82 97 10/04/21 23:40 73 18 94 10/04/21 23:08 36.8 C 84 20 135/72 91 10/04/21 22:18 66 Laboratory Results 10/05/21 10/05/21 Range/Units 06:35 06:35 PT 26.2 H (9.0-12.0) Seconds INR 2.8 H (0.9-1.1) Sodium 130 L (136-145) mmol/L Potassium 3.5 (3.5-5.1) mmol/L Chloride 84 L (98-107) mmol/L Carbon Dioxide 35 H (21-32) mmol/L Anion Gap 11 (3-11) BUN 83 H (6-23) mg/dl Creatinine 3.11 H (0.6-1.4) mg/dl Est Cr Clr Drug Dosing 38.3 ml/min Est GFR ( Amer) 23.9 ml/min Est GFR (Non-Af Amer) 20.7 ml/min BUN/Creatinine Ratio 26.7 H (10-20) Glucose 90 (70-99(Fasting)) mg/dl Calcium 9.6 (8.5-10.1) mg/dl Magnesium 2.6 H (1.7-2.4) mg/dl
--- NOTE | 2021-10-05 08:17 | Nephrology Progress Note ---
Date of Service October 05, 2021 Assessment & Plan (1) Acute on chronic right-sided heart failure: Plan: Patient with acute on chronic right-sided heart failure. He is on RA this aM; was on 3L most of yesterday. Patient was net -3.1L neg 10/02; net 1L neg 10/03; 4.2L negative 10/04 according to I/O but weights belie this. First standing wt this hospitalization is 178.3 on 10/02; pt at 176.5 10/04; 175.6 10/05. today. renal function worsened 2.7>3.1 on 10/04 and now plateau'd -cont lowered IV Lasix dose to 60 mg 3 times daily; cont same metolazone and Aldactone -daily bmp; renal function may well worsen further before stabilizing -Monitor input output strictly -continue daily standing weights -tightened FR 1.2L; added low Na diet (2) Acute renal insufficiency: Plan: Baseline creatinine 2.2; stage 1 nonoliguric EDSON from cardiorenal syndrome. Creatinine worst it's been this admission and plateau'd; chemistries acceptable We will continue diuresis as above. Avoid nephrotoxins and monitor renal function with a BMP Admission and Anticipated Discharge Date Admission Date: September 27, 2021 Subjective no interval clinical events. edema seems a bit better, no sob Review of Systems Review of Systems: All systems reviewed & are unremarkable except as noted in Subjective Physical Exam Constitutional: well developed, well nourished and + morbidly obese; no acute distress Eyes: EOM intact bilaterally ENMT: Ears: no external ear abnormality Nose: no external nose abnormality Mouth: + dry oral mucous membranes Neck: no nuchal rigidity Respiratory: normal respiratory effort Auscultation: + diminished lung sounds Cardiovascular: Rate/Rhythm: regular rate and regular rhythm Extremities: + edema (trace-1+ BLE) Gastrointestinal (Abdomen): Inspection/Auscultation: normal bowel sounds Percussion/Palpation: abdomen soft; abdomen nontender Musculoskeletal: Extremities: strength 5/5 throughout Skin: no rashes, warm and dry Psychiatric: Orientation: oriented to person and oriented to place Insight: + limited insight Results & Data ([facility]) Vital Signs (Past 12 Hours) Vital Signs Temp Pulse Pulse Resp BP Pulse Ox 10/05/21 07:22 72 10/05/21 07:00 36.3 C L 69 22 105/53 L 91 10/05/21 03:38 36 C L 82 20 136/82 97 10/04/21 23:40 73 18 94 10/04/21 23:08 36.8 C 84 20 135/72 91 10/04/21 22:18 66 Laboratory Results 09/30/21 06:59 10/05/21 06:35
[2021-10-05] MEDS: ALBUTEROL 0.083% NEBU SOLN 3 ML VIAL INH PRN (12:57)
--- NOTE | 2021-10-05 15:50 | Hospitalist Progress Note ---
Date of Service October 05, 2021 Assessment & Plan (1) Acute on chronic right-sided heart failure: Plan: Acute on chronic right sided HFpEF Hypoxia Net 3L out overnight; down about 15lb since admission With elevated creatinine, bicarb and tremulousness reported, cont current dose lasix to 60mg IV q8hr per nephrology. Cont metolazone 5mg PO daily and spironolactone 50mg BID Monitor daily output monitor daily standing weight Daily BMP. (2) Noncompliance: Plan: historically with medications? and dietary and fluid restrictions as instructed. We discussed some lifestyle modifications that would be needed to help him feel better starting weight loss efforts through changing his diet. Counseled him on ways to achieve this. Patient requesting rehab but doesn't technically antonio lify. Explore options with case management for post-discharge help. (3) Chronic atrial fibrillation: Plan: Chronic atrial fibrillation sick sinus syndrome S/P PPM INR therapeutic,heparin drip stopped. Continue Coumadin Monitor INR which is currently therapeutic Continue metoprolol (4) Elevated d-dimer: Plan: Elevated D-dimer Doppler US:No DVT within the right or left lower extremity. Could not obtain CTA given renal insufficiency Likely would not price changer given anticoagulation (5) CAD (coronary artery disease): Plan: Coronary artery disease S/P CABG Hypertension chronic, stable/at goal, Continue home medications (6) Elevated troponin: Plan: Chronic troponin elevation In setting of CKD, CHF Patient denies any chest pain EKG this admission showed no signs of acute ischemia (7) Morbid obesity: Plan: Counseled on lifestyle modifications including the importance of diet modification. Goal would be overall decrease percent body fat and increased lean muscle mass. Plan: Chronic hyponatremia Likely secondary to diuretics and antipsychotics, decreased lasix as above. Sodium 129 EDSON on chronic kidney disease, stage 3 2/2 diuresis Creatinine 2.1, baseline Stable at 3.1 with ongoing diuresis Nephrology consulted to help with IV diuresis given CKD Tremor appears to have resolved with holding topiramate. Denies lightheadedness with ambulation. Cont holding it now. Electrolytes/EDSON may also be contributing Will cont to monitor with changes as above. Obstructive sleep apnea on BiPAP HS COPD chronic, stable without signs of exacerbation Continue home inhalers Chronic back pain chronic, stable, cont current management. DVT Px: Coumadin Code Status Full Code Georgia Valencia DO [facility] Hospitalist Admission and Anticipated Discharge Date Admission Date: September 27, 2021 Subjective 61 yo M admitted for acute on chronic right sided heart failure Breathing improved reports no issues with tremors today and no lightheadedness with ambulation denies chest pain or SOB overall feeling well Review of Systems Review of Systems: All systems were reviewed and negative except as indicated in subjective above. Physical Exam Physical Exam: CONSTITUTIONAL: morbidly obese, vitals as above, generally well-appearing, NAD EYES: normal conjunctivae, no scleral icterus ENT: external ear and nose normal, MMM NECK: trachea midline, RESPIRATORY: clear to auscultation bilaterally, diminished breath sounds at bases, no crackles, rales or wheezes, normal respiratory effort, min conversational dyspnea. CARDIOVASCULAR: regular rate and rhythm, S1 and 2 heard without murmurs, gallops or rubs, no JVD, no peripheral edema, CHEST: inspection of chest was normal GASTROINTESTINAL: soft, protuberant, nontender, ND, no guarding MUSCULOSKELETAL: strength 5/5 throughout, head is normocephalic and atraumatic, some difficulty moving around the bed but ultimately he can do this independently SKIN: warm and dry, NEUROLOGIC: No facial palsy, no dysarthria. CN 2-12 grossly intact, no sensory deficit, normal cognition, normal speech, no tremor PSYCHIATRIC: alert cooperative and oriented to person, place and time. Results & Data Results & Data ([facility]) Vital Signs (Past 12 Hours) Vital Signs Temp Pulse Pulse Resp BP Pulse Ox 10/05/21 15:35 83 10/05/21 13:22 84 105/70 10/05/21 12:57 76 24 95 10/05/21 12:45 97 10/05/21 10:50 37.0 C 77 22 115/68 94 10/05/21 07:22 72 10/05/21 07:00 36.3 C L 69 22 105/53 L 91 Laboratory Results [facility] 10/05/21 06:35 Sodium 130 L Potassium 3.5 Chloride 84 L Carbon Dioxide 35 H BUN 83 H Creatinine 3.11 H Glucose 90 Calcium 9.6 Medications Administered Current Inpatient Medications Acetaminophen (Acetaminophen 500 Mg Tab) 1,000 mg PO Q8H PRN PRN Reason: pain or fever Stop: 10/29/21 17:59 Last Admin: 10/04/21 08:37 Dose: 1,000 mg Documented by: Albuterol (Albuterol Hfa 8 Gm Inhaler) 2 puffs INH QID PRN PRN Reason: Shortness Of Breath Or Wheezing Stop: 10/27/21 18:36 Albuterol (Albuterol 0.083% Nebu Soln 3 Ml Vial) 2.5 mg INH Q6 PRN; Protocol PRN Reason: Shortness Of Breath Or Wheezing Stop: 10/27/21 18:36 Last Admin: 10/05/21 12:57 Dose: 2.5 mg Documented by: Aripiprazole (Aripiprazole 5 Mg Tab) 5 mg PO QAM [facility] Stop: 10/28/21 08:59 Last Admin: 10/05/21 07:56 Dose: 5 mg Documented by: Ezetimibe (Ezetimibe 10 Mg Tablet) 10 mg PO DAILY [facility] Stop: 10/28/21 08:59 Last Admin: 10/05/21 07:56 Dose: 10 mg Documented by: Fluticasone/Vilanterol (Fluticasone/Vilanterol 200/25mcg 14 Puffs/Inhaler) 1 puffs INH DAILY [facility] Stop: 10/28/21 08:59 Last Admin: 10/05/21 07:56 Dose: 1 puffs Documented by: Furosemide (Furosemide 10 Mg/Ml 10 Ml Vial) 60 mg IV Q8H [facility] Stop: 11/03/21 13:59 Last Admin: 10/05/21 13:23 Dose: 60 mg Documented by: Gabapentin (Gabapentin 600 Mg Tab) 600 mg PO BID [facility] Stop: 10/27/21 20:59 Last Admin: 10/05/21 07:57 Dose: 600 mg Documented by: Heparin Sodium (Porcine) (Heparin 100 Unit/Ml 5ml Flush) 5 ml FLUSH PRN PRN PRN Reason: Flush Stop: 10/31/21 07:19 Last Admin: 10/05/21 06:21 Dose: 5 ml Documented by: Isosorbide Mononitrate (Isosorbide [place] Extended Rel 30 Mg Tabcr) 30 mg PO QAM [facility] Stop: 10/28/21 08:59 Last Admin: 10/05/21 07:57 Dose: 30 mg Documented by: Lamotrigine (Lamotrigine 100 Mg Tab) 200 mg PO BID [facility] Stop: 10/27/21 20:59 Last Admin: 10/05/21 07:57 Dose: 200 mg Documented by: Menthol (Cough Drop (Sugar Free) Lety 24 Lety/1 Box) 1 lety BUCCAL NOW PRN PRN Reason: Sore Throat Stop: 11/03/21 14:31 Last Admin: 10/04/21 16:14 Dose: 1 lety Documented by: Metolazone (Metolazone 5 Mg Tablet) 5 mg PO QAM [facility] Stop: 10/28/21 09:59 Last Admin: 10/05/21 07:56 Dose: 5 mg Documented by: Metoprolol Succinate (Metoprolol Succ 50mg Ext Rel Tab) 50 mg PO DAILY [facility] Stop: 10/28/21 08:59 Last Admin: 10/05/21 07:56 Dose: 50 mg Documented by: Miconazole Nitrate (Miconazole Nitrate Powder 43 Gm) 1 appln EXT PRN PRN PRN Reason: Affected Skin Folds Stop: 11/01/21 09:24 Last Admin: 10/04/21 08:41 Dose: 1 appln Documented by: Nitroglycerin (Nitroglycerin Sl 0.4 Mg/Tab Tab) 0.4 mg SL UD PRN PRN Reason: Chest Pain Stop: 10/27/21 18:36 Ondansetron HCl (Ondansetron Inj 2 Mg/Ml 2 Ml Vial) 4 mg IV Q6H PRN PRN Reason: Nausea Stop: 10/27/21 18:36 Last Admin: 10/01/21 19:37 Dose: 4 mg Documented by: Polyethylene Glycol (Polyethylene (Miralax) 17 Gm Pack) 17 gm PO DAILY PRN PRN Reason: Constipation Stop: 10/27/21 18:36 Potassium Chloride (Potassium Chloride Crtab 20 Meq Tabcr) 40 meq PO BID [facility] Stop: 10/30/21 20:59 Last Admin: 10/05/21 07:56 Dose: 40 meq Documented by: Quetiapine Fumarate (Quetiapine Fumarate 200 Mg Tab) 200 mg PO HS [facility] Stop: 10/27/21 20:59 Last Admin: 10/04/21 23:13 Dose: 200 mg Documented by: Rosuvastatin Calcium (Rosuvastatin Calcium 20 Mg Tab) 40 mg PO DAILY [facility] Stop: 10/28/21 08:59 Last Admin: 10/05/21 07:57 Dose: 40 mg Documented by: Spironolactone (Spironolactone 25 Mg Tab) 50 mg PO BID [facility] Stop: 10/27/21 20:59 Last Admin: 10/05/21 07:57 Dose: 50 mg Documented by: Tamsulosin HCl (Tamsulosin Hcl 0.4 Mg Cap) 0.4 mg PO HS [facility]RI[facility]INE Stop: 10/27/21 20:59 Last Admin: 10/04/21 20:43 Dose: 0.4 mg Documented by: Topiramate (Topiramate 25 Mg Tab) 25 mg PO BID [facility] Stop: 10/27/21 20:59 Last Admin: 10/03/21 07:50 Dose: 25 mg Documented by: Tramadol HCl (Tramadol Hcl 50 Mg Tablet) 50 mg PO Q12H PRN PRN Reason: severe pain Stop: 10/29/21 17:49 Trolamine Salicylate (Trolamine Salicylate 10% Crm 255 Appln/85 Gm Tube) 1 appln EXT TID PRN PRN Reason: back pain Stop: 10/29/21 17:59 Last Admin: 10/05/21 06:21 Dose: 1 appln Documented by: Vitamin D (Cholecalciferol 5,000 Units 125 Mcg Tab) 5,000 units PO QDD [facility] Stop: 10/28/21 16:29 Last Admin: 10/05/21 16:07 Dose: 5,000 units Documented by: Warfarin Sodium (Warfarin Sod 5 Mg Tab) 5 mg PO DAILY@1600 [facility] Stop: 10/28/21 15:59 Last Admin: 10/05/21 16:06 Dose: 5 mg Documented by: Zolpidem Tartrate (Zolpidem Tartrate 5 Mg Tab) 5 mg PO HS PRN PRN Reason: Sleep Stop: 10/27/21 18:36 Last Admin: 10/04/21 23:13 Dose: 5 mg Documented by:
[2021-10-05] MEDS: WARFARIN SOD 5 MG TAB PO SCH (16:06)
[2021-10-05] MEDS: CHOLECALCIFEROL 5,000 UNITS 125 MCG TAB PO SCH (16:07)
[2021-10-05] MEDS: TAMSULOSIN HCL 0.4 MG CAP PO SCH (21:34)
[2021-10-05] MEDS: QUEtiapine FUMARATE 200 MG TAB PO SCH (22:27)
[2021-10-05] MEDS: ZOLPIDEM TARTRATE 5 MG TAB PO PRN (22:27)
[2021-10-06] MEDS: FUROSEMIDE 10 MG/ML 10 ML VIAL IV SCH (05:52)
[2021-10-06] MEDS: HEPARIN 100 UNIT/ML 5ML FLUSH FLUSH PRN (05:53)
[2021-10-06] MEDS: TROLAMINE SALICYLATE 10% CRM 255 APPLN/85 GM TUBE EXT PRN ×2 (05:53→23:04)
--- NOTE | 2021-10-06 07:55 | Cardiology Progress Note ---
Date of Service October 06, 2021 Assessment & Plan (1) Right-sided congestive heart failure: (2) Morbid obesity: (3) CKD (chronic kidney disease) stage 3, GFR 30-59 ml/min: (4) CAD (coronary artery disease): (5) Status post placement of cardiac pacemaker: (6) Chronic atrial fibrillation: (7) OSCAR (obstructive sleep apnea): (8) Cor pulmonale: Plan: Markedly complex, noncompliant, 61-year-old male admitted with recurrent (despite attempts at aggressive outpatient medical management) acute on chronic right greater than left biventricular congestive heart failure. Diuretics are being directed by Nephrology; requiring ongoing IV diuretic therapy. Sodium low this am. FR reduced to 1200 mL per nephro. Supplement potassium orally, continuing spironolactone. Recommend BiPAP when sleeping throughout the day and at night. Agree with outpatient rehab. We will continue to follow. Case discussed with Dr. Ariza. Admission and Anticipated Discharge Date Admission Date: September 27, 2021 Supervising Physician Co-Signing Physician Notes Full assessment and plan as above. Weight down 8 kg to admission. Uncertain whether I's and O's accurately reflect oral intake. Overall slowly improving Subjective Patient was seen and examined, chart, medications, telemetry reviewed. Patient alert and oriented resting in bed. No acute complaints. No arrhythmias on telemetry. Continues to diuresis on IV Lasix.Lower extremity edema resolved. Minimal abdominal distension. Orthopnea improved. Wearing BiPAP over night. No chest pain, tachy palpitations, or dizziness. Tele: Paced/Afib in the 70s Weight:176.5 >> 175.6kg>>175.1 kg I&O: -18.5 L (-3.5 L last 24 hours) Review of Systems Review of Systems: All systems reviewed & are unremarkable except as noted in HPI & below Physical Exam Physical Exam: Constitutional: + morbidly obese; no acute distress Eyes: PERRL, conjunctivae normal, anicteric sclerae Neck: + Thick neck Resp: No audible wheezes Auscultation: + diminished lung sounds CV: Rate/Rhythm: regular rate (Paced rhythm) Heart Sounds: no murmur Extremities: Trace edema (+increased abdominal girth) MSK: Knee: + skin erythema (Lower extremities without skin breakdown) Results & Data ([facility]) Vital Signs (Past 12 Hours) Vital Signs Temp Pulse Pulse Resp BP Pulse Ox 10/06/21 07:39 36.7 C 93 H 20 129/73 96 10/06/21 07:10 89 10/06/21 03:55 80 18 97 10/06/21 03:30 36.5 C 58 L 20 117/76 96 10/05/21 23:40 37.0 C 60 20 117/70 96 10/05/21 21:00 81 26 H 98 Laboratory Results 10/06/21 10/06/21 Range/Units 09:24 06:44 PT 27.2 H (9.0-12.0) Seconds INR 2.7 H (0.9-1.1) Sodium 130 L (136-145) mmol/L Potassium 3.6 (3.5-5.1) mmol/L Chloride 85 L (98-107) mmol/L Carbon Dioxide 34 H (21-32) mmol/L Anion Gap 11 (3-11) BUN 86 H (6-23) mg/dl Creatinine 2.75 H D (0.6-1.4) mg/dl Est Cr Clr Drug Dosing 43.2 ml/min Est GFR ( Amer) 27.8 ml/min Est GFR (Non-Af Amer) 24.0 ml/min BUN/Creatinine Ratio 31.3 H (10-20) Glucose 94 (70-99(Fasting)) mg/dl Calcium 9.8 (8.5-10.1) mg/dl
[2021-10-06] MEDS: metOLazone 5 MG TABLET PO SCH (08:09)
[2021-10-06] MEDS: METOPROLOL SUCC 50MG EXT REL TAB PO SCH (08:09)
[2021-10-06] MEDS: SPIRONOLACTONE 25 MG TAB PO SCH ×2 (08:09→20:34)
[2021-10-06] MEDS: ARIPiprazole 5 MG TAB PO SCH (08:09)
[2021-10-06] MEDS: ISOSORBIDE MONO EXTENDED REL 30 MG TABCR PO SCH (08:09)
[2021-10-06] MEDS: lamoTRIgine 100 MG TAB PO SCH ×2 (08:09→20:34)
[2021-10-06] MEDS: POTASSIUM CHLORIDE CRTAB 20 MEQ TABCR PO SCH ×2 (08:09→20:34)
[2021-10-06] MEDS: FLUTICASONE/VILANTEROL 200/25MCG 14 PUFFS/INHALER INH SCH (08:10)
[2021-10-06] MEDS: ROSUVASTATIN CALCIUM 20 MG TAB PO SCH (08:10)
[2021-10-06] MEDS: EZETIMIBE 10 MG TABLET PO SCH (08:10)
[2021-10-06] MEDS: GABAPENTIN 600 MG TAB PO SCH ×2 (08:10→20:34)
--- NOTE | 2021-10-06 08:56 | Nephrology Progress Note ---
Date of Service October 06, 2021 Assessment & Plan (1) Acute on chronic right-sided heart failure: Plan: Patient with acute on chronic right-sided heart failure. He is on 2L this AM. diuresis slowing w/ him being on lower lasix dosing. Patient was net -3.1L neg 10/02; net 1L neg 10/03; 4.2L negative 10/04; 3.32 L negative 10/05 according to I/O but weights belie this. First standing wt this hospitalization is 178.3 on 10/02; pt at 176.5 10/04; 175.6 3/; 175.1 on 10/06; as of today down 7.2 lb since first standing weight. renal function worsened 2.7>3.1 on 10/04 and now plateau'd -after receiving AM lasix, changed to torsemide 100 mg bid17 -changed metolazone to 2.5 mg MWF -cont aldactone 50 mg bid -will give extra dose of K today 60 mEq -daily bmp; renal function may well worsen further before stabilizing -Monitor input output strictly -agree w/ cardiology recommendations re bipap -continue daily standing weights -cont tightened FR 1.2L; added low Na diet (2) Acute renal insufficiency: Plan: Baseline creatinine 2.2; stage 1 nonoliguric EDSON from cardiorenal syndrome. Creatinine worst it's been this admission and plateau'd; chemistries acceptable except for hyponatremia which is chronic and stable; longer term renal prognosis poor. We will continue diuresis as above. Avoid nephrotoxins and monitor renal function with a BMP daily Admission and Anticipated Discharge Date Admission Date: September 27, 2021 Subjective no interval events. feels breathing ok > on 02nc. edema stable/ improved overall. no n/v. Review of Systems Review of Systems: All systems reviewed & are unremarkable except as noted in Subjective Physical Exam Constitutional: well developed, well nourished and + morbidly obese; no acute distress Eyes: EOM intact bilaterally ENMT: Ears: no external ear abnormality Nose: no external nose abnormality Mouth: + dry oral mucous membranes Neck: no nuchal rigidity Respiratory: normal respiratory effort Auscultation: + diminished lung sounds Cardiovascular: Rate/Rhythm: regular rate and regular rhythm Extremities: + edema (trace BLE) Gastrointestinal (Abdomen): Inspection/Auscultation: normal bowel sounds Percussion/Palpation: abdomen soft; abdomen nontender Musculoskeletal: Extremities: strength 5/5 throughout Skin: no rashes, warm and dry Psychiatric: Orientation: oriented to person and oriented to place Insight: + limited insight Results & Data ([facility]) Vital Signs (Past 12 Hours) Vital Signs Temp Pulse Pulse Resp BP Pulse Ox 10/06/21 07:39 36.7 C 93 H 20 129/73 96 10/06/21 07:10 89 10/06/21 03:55 80 18 97 10/06/21 03:30 36.5 C 58 L 20 117/76 96 10/05/21 23:40 37.0 C 60 20 117/70 96 10/05/21 21:00 81 26 H 98 Laboratory Results 09/30/21 06:59 10/05/21 06:35
[2021-10-06 09:32] LABS: BUN Creatinine Ratio 31.3 (10-20); Calcium 9.8 mg/dl (8.5-10.1); Creatinine Clr Calc Pharmacy 43.2 ml/min; Est GFR (African American) 27.8 ml/min; Potassium 3.6 mmol/L (3.5-5.1)
[2021-10-06 09:40] LABS: INR 2.7 (0.9-1.1); Prothrombin Time 27.2 Seconds (9.0-12.0)
[2021-10-06] MEDS: POTASSIUM CHLORIDE 10 MEQ TABCR PO SCH ×2 (13:15→15:56)
--- NOTE | 2021-10-06 14:17 | Hospitalist Progress Note ---
Date of Service October 06, 2021 Assessment & Plan (1) Acute on chronic right-sided heart failure: Plan: Acute on chronic right sided HFpEF Hypoxia Net 3L out overnight; down about 15lb since admission (183kg on 09/27, now 175kg) creatinine starting to improve down to 2.75 from 3.11, bicarb and tremulousness reported, cont current dose lasix to 60mg IV q8hr per nephrology. Cont metolazone 5mg PO daily and spironolactone 50mg BID Monitor daily output monitor daily standing weight Daily BMP. (2) Noncompliance: Plan: historically with medications? and dietary and fluid restrictions as instructed. We discussed some lifestyle modifications that would be needed to help him feel better starting weight loss efforts through changing his diet. Counseled him on ways to achieve this. Patient requesting rehab but doesn't technically qualify. Explore options with case management for post-discharge help. (3) Chronic atrial fibrillation: Plan: Chronic atrial fibrillation sick sinus syndrome S/P PPM INR therapeutic,heparin drip stopped. Continue Coumadin Monitor INR which is currently therapeutic Continue metoprolol (4) Elevated d-dimer: Plan: Elevated D-dimer Doppler US:No DVT within the right or left lower extremity. 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 Goal would be overall decrease percent body fat and increased lean muscle mass. Plan: Chronic hyponatremia Likely secondary to diuretics and antipsychotics, decreased lasix as above. Sodium 130 EDSON on chronic kidney disease, stage 3 2/2 diuresis Creatinine 2.1, baseline creatinine improved to 2.7 as above with ongoing diuresis Nephrology consulted to help with IV diuresis given CKD Tremor appears to have resolved with holding topiramate. Denies lightheadedness with ambulation. Cont holding it now. Electrolytes/EDSON may also be contributing Will cont to monitor with changes as above. Obstructive sleep apnea on BiPAP HS COPD chronic, stable without signs of exacerbation Continue home inhalers Chronic back pain chronic, stable, cont current management. DVT Px: Coumadin Code Status Full Code I spoke with his sister, Kat, and discussed the importance for his lifestyle modifications including diet. She states he uses Mom's meals and tends to eat alot at once as a result of the delivery style. They also are heavy in sodium. Helping hands helps him to shop. He is on EBT and home bound. Discussed with case management and he doesn't qualify for rehab. Will plan to send home once medically stable. Georgia Valencia DO [facility] Hospitalist Admission and Anticipated Discharge Date Admission Date: September 27, 2021 Subjective 61 yo M admitted for acute on chronic right sided heart failure Breathing improved reports no issues with tremors today and some lightheadedness with ambulation, however, this was right after he woke up this morning and he thinks this had something to do with it. Lightheadedness has resolved. denies chest pain or SOB overall feeling well Review of Systems Review of Systems: All systems were reviewed and negative except as indicated in subjective above. Physical Exam Physical Exam: CONSTITUTIONAL: morbidly obese, vitals as above, generally well-appearing, NAD EYES: normal conjunctivae, no scleral icterus ENT: external ear and nose normal, MMM NECK: trachea midline, RESPIRATORY: clear to auscultation bilaterally, diminished breath sounds at bases, no crackles, rales or wheezes, normal respiratory effort, min conversational dyspnea. CARDIOVASCULAR: regular rate and rhythm, S1 and 2 heard without murmurs, gallops or rubs, no JVD, no peripheral edema, CHEST: inspection of chest was normal GASTROINTESTINAL: soft, protuberant, nontender, ND, no guarding MUSCULOSKELETAL: strength 5/5 throughout, head is normocephalic and atraumatic, some difficulty moving around the bed but ultimately he can do this independently SKIN: warm and dry, NEUROLOGIC: No facial palsy, no dysarthria. CN 2-12 grossly intact, no sensory deficit, normal cognition, normal speech, no tremor PSYCHIATRIC: alert cooperative and oriented to person, place and time. Results & Data Results & Data ([facility]) Vital Signs (Past 12 Hours) Vital Signs Temp Pulse Pulse Resp BP Pulse Ox 10/06/21 11:31 36.6 C 70 20 111/64 93 10/06/21 07:39 36.7 C 93 H 20 129/73 96 10/06/21 07:10 89 10/06/21 03:55 80 18 97 10/06/21 03:30 36.5 C 58 L 20 117/[address] [facility] 10/06/21 06:44 Sodium 130 L Potassium 3.6 Chloride 85 L Carbon Dioxide 34 H BUN 86 H Creatinine 2.75 H D Glucose 94 Calcium 9.8 Medications Administered Current Inpatient Medications Acetaminophen (Acetaminophen 500 Mg Tab) 1,000 mg PO Q8H PRN PRN Reason: pain or fever Stop: 10/29/21 17:59 Last Admin: 10/04/21 08:37 Dose: 1,000 mg Documented by: Albuterol (Albuterol Hfa 8 Gm Inhaler) 2 puffs INH QID PRN PRN Reason: Shortness Of Breath Or Wheezing Stop: 10/27/21 18:36 Albuterol (Albuterol 0.083% Nebu Soln 3 Ml Vial) 2.5 mg INH Q6 PRN; Protocol PRN Reason: Shortness Of Breath Or Wheezing Stop: 10/27/21 18:36 Last Admin: 10/05/21 12:57 Dose: 2.5 mg Documented by: Aripiprazole (Aripiprazole 5 Mg Tab) 5 mg PO QAM CHRISTINE Stop: 10/28/21 08:59 Last Admin: 10/06/21 08:09 Dose: 5 mg Documented by: Ezetimibe (Ezetimibe 10 Mg Tablet) 10 mg PO DAILY CHRISTINE Stop: 10/28/21 08:59 Last Admin: 10/06/21 08:10 Dose: 10 mg Documented by: Fluticasone/Vilanterol (Fluticasone/Vilanterol 200/25mcg 14 Puffs/Inhaler) 1 puffs INH DAILY CHRISTINE Stop: 10/28/21 08:59 Last Admin: 10/06/21 08:10 Dose: 1 puffs Documented by: Gabapentin (Gabapentin 600 Mg Tab) 600 mg PO BID CHRISTINE Stop: 10/27/21 20:59 Last Admin: 10/06/21 08:10 Dose: 600 mg Documented by: Heparin Sodium (Porcine) (Heparin 100 Unit/Ml 5ml Flush) 5 ml FLUSH PRN PRN PRN Reason: Flush Stop: 10/31/21 07:19 Last Admin: 10/06/21 05:53 Dose: 5 ml Documented by: Isosorbide Mononitrate (Isosorbide [place] Extended Rel 30 Mg Tabcr) 30 mg PO QAM [facility] Stop: 10/28/21 08:59 Last Admin: 10/06/21 08:09 Dose: 30 mg Documented by: Lamotrigine (Lamotrigine 100 Mg Tab) 200 mg PO BID [facility] Stop: 10/27/21 20:59 Last Admin: 10/06/21 08:09 Dose: 200 mg Documented by: Menthol (Cough Drop (Sugar Free) Lety 24 Lety/1 Box) 1 lety BUCCAL NOW PRN PRN Reason: Sore Throat Stop: 11/03/21 14:31 Last Admin: 10/04/21 16:14 Dose: 1 lety Documented by: Metolazone (Metolazone 2.5 Mg Tablet) 2.5 mg PO MoWeFr [facility] Stop: 11/07/21 07:59 Metoprolol Succinate (Metoprolol Succ 50mg Ext Rel Tab) 50 mg PO DAILY [facility] Stop: 10/28/21 08:59 Last Admin: 10/06/21 08:09 Dose: 50 mg Documented by: Miconazole Nitrate (Miconazole Nitrate Powder 43 Gm) 1 appln EXT PRN PRN PRN Reason: Affected Skin Folds Stop: 11/01/21 09:24 Last Admin: 10/04/21 08:41 Dose: 1 appln Documented by: Nitroglycerin (Nitroglycerin Sl 0.4 Mg/Tab Tab) 0.4 mg SL UD PRN PRN Reason: Chest Pain Stop: 10/27/21 18:36 Ondansetron HCl (Ondansetron Inj 2 Mg/Ml 2 Ml Vial) 4 mg IV Q6H PRN PRN Reason: Nausea Stop: 10/27/21 18:36 Last Admin: 10/01/21 19:37 Dose: 4 mg Documented by: Polyethylene Glycol (Polyethylene (Miralax) 17 Gm Pack) 17 gm PO DAILY PRN PRN Reason: Constipation Stop: 10/27/21 18:36 Potassium Chloride (Potassium Chloride Crtab 20 Meq Tabcr) 40 meq PO BID [facility] Stop: 10/30/21 20:59 Last Admin: 10/06/21 08:09 Dose: 40 meq Documented by: Potassium Chloride (Potassium Chloride 10 Meq Tabcr) 30 meq PO Q3H [facility] Stop: 10/06/21 16:16 Last Admin: 10/06/21 13:15 Dose: 30 meq Documented by: Quetiapine Fumarate (Quetiapine Fumarate 200 Mg Tab) 200 mg PO HS CHRISTINE Stop: 10/27/21 20:59 Last Admin: 10/05/21 22:27 Dose: 200 mg Documented by: Rosuvastatin Calcium (Rosuvastatin Calcium 20 Mg Tab) 40 mg PO DAILY CHRISTINE Stop: 10/28/21 08:59 Last Admin: 10/06/21 08:10 Dose: 40 mg Documented by: Spironolactone (Spironolactone 25 Mg Tab) 50 mg PO BID CHRISTINE Stop: 10/27/21 20:59 Last Admin: 10/06/21 08:09 Dose: 50 mg Documented by: Tamsulosin HCl (Tamsulosin Hcl 0.4 Mg Cap) 0.4 mg PO HS [facility] Stop: 10/27/21 20:59 Last Admin: 10/05/21 21:34 Dose: 0.4 mg Documented by: Topiramate (Topiramate 25 Mg Tab) 25 mg PO BID [facility]RISTINE Stop: 10/27/21 20:59 Last Admin: 10/03/21 07:50 Dose: 25 mg Documented by: Torsemide (Torsemide 100 Mg Tab) 100 mg PO BID17 [facility] Stop: 11/05/21 16:59 Tramadol HCl (Tramadol Hcl 50 Mg Tablet) 50 mg PO Q12H PRN PRN Reason: severe pain Stop: 10/29/21 17:49 Trolamine Salicylate (Trolamine Salicylate 10% Crm 255 Appln/85 Gm Tube) 1 appln EXT TID PRN PRN Reason: back pain Stop: 10/29/21 17:59 Last Admin: 10/06/21 05:53 Dose: 1 appln Documented by: Vitamin D (Cholecalciferol 5,000 Units 125 Mcg Tab) 5,000 units PO QDD [facility] Stop: 10/28/21 16:29 Last Admin: 10/05/21 16:07 Dose: 5,000 units Documented by: Warfarin Sodium (Warfarin Sod 5 Mg Tab) 5 mg PO DAILY@1600 [facility]RISTINE Stop: 10/28/21 15:59 Last Admin: 10/05/21 16:06 Dose: 5 mg Documented by: Zolpidem Tartrate (Zolpidem Tartrate 5 Mg Tab) 5 mg PO HS PRN PRN Reason: Sleep Stop: 10/27/21 18:36 Last Admin: 10/05/21 22:27 Dose: 5 mg Documented by:
[2021-10-06] MEDS: WARFARIN SOD 5 MG TAB PO SCH (15:56)
[2021-10-06] MEDS: CHOLECALCIFEROL 5,000 UNITS 125 MCG TAB PO SCH (15:57)
[2021-10-06] MEDS: TORSEMIDE 100 MG TAB PO SCH (15:57)
[2021-10-06] MEDS: ACETAMINOPHEN 500 MG TAB PO PRN (20:33)
[2021-10-06] MEDS: TAMSULOSIN HCL 0.4 MG CAP PO SCH (20:34)
[2021-10-06] MEDS: QUEtiapine FUMARATE 200 MG TAB PO SCH (23:04)
[2021-10-06] MEDS: ZOLPIDEM TARTRATE 5 MG TAB PO PRN (23:04)
--- NOTE | 2021-10-07 07:41 | Cardiology Progress Note ---
Date of Service October 07, 2021 Assessment & Plan (1) Right-sided congestive heart failure: (2) Morbid obesity: (3) CKD (chronic kidney disease) stage 3, GFR 30-59 ml/min: (4) CAD (coronary artery disease): (5) Status post placement of cardiac pacemaker: (6) Chronic atrial fibrillation: (7) OSCAR (obstructive sleep apnea): (8) Cor pulmonale: Plan: Markedly complex, noncompliant, 61-year-old male admitted with recurrent (despite attempts at aggressive outpatient medical management) acute on chronic right greater than left biventricular congestive heart failure. Diuretics are being directed by Nephrology and patient was recently transitioned to PO. 1200 mL per nephro. Supplement potassium orally, continuing spironolactone. Recommend BiPAP when sleeping throughout the day and at night. No further cardiology recommendations at this time- ok to discharge from a cardiac standpoint. Will defer to nephrology regarding volume status/renal management. Case discussed with Dr. Ariza. Admission and Anticipated Discharge Date Admission Date: September 27, 2021 Supervising Physician Co-Signing Physician Notes Patient examined and plan as above. Diuretics transition to oral. Major leonel will be continued to be patient's compliance and sodium and fluid restriction with high risk for relapse Subjective Patient was seen and examined, chart, medications, telemetry reviewed. Yesterday- patient was transitioned from IV Lasix to torsemide 100 mg BID and metolazone was changed to 2.5 mg every MWF. Per case management- patient does not qualify for short term in-patient rehab and will be discharged home when stable. He is approved with a caser up through [employer]. Patient alert and oriented resting in bed. No acute complaints. No arrhythmias on telemetry. Lower extremity edema resolved. Minimal abdominal distension. Orthopnea improved. Wearing BiPAP over night. No chest pain, tachy palpitations, or dizziness. Tele: Paced/Afib in the 70s Weight:176.5 >> 175.6kg>>175.1 kg>>175.4 kg I&O: -19.6 L (-1 L last 24 hours) Review of Systems Review of Systems: All systems reviewed & are unremarkable except as noted in HPI & below Physical Exam Physical Exam: Constitutional: + morbidly obese; no acute distress Eyes: PERRL, conjunctivae normal, anicteric sclerae Neck: + Thick neck Resp: No audible wheezes Auscultation: + diminished lung sounds CV: Rate/Rhythm: regular rate (Paced rhythm) Heart Sounds: no murmur Extremities: No edema (+increased abdominal girth) MSK: Knee: + skin erythema (Lower extremities without skin breakdown) Results & Data ([facility]) Vital Signs (Past 12 Hours) Vital Signs Temp Pulse Pulse Resp BP Pulse Ox 10/07/21 04:00 36.8 C 81 20 112/70 95 10/07/21 03:30 12 10/06/21 23:00 36.9 C 83 18 113/69 94 10/06/21 22:17 68 10/06/21 19:56 36.6 C 73 18 119/71 93 Laboratory Results 10/07/21 10/07/21 10/07/21 Range/Units 07:36 07:17 07:17 WBC 13.82 H (4.8-10.8) K/uL RBC 4.68 L (4.7-6.1) M/uL Hgb 12.7 L (14.0-18.0) g/dL Hct 38.3 L (42-52) % MCV 81.8 (80-100) fL MCH 27.1 (25-34) pg MCHC 33.2 (32-36) g/dL RDW Std Deviation 54.6 H (36.4-46.3) fL RDW Coeff of Karlene 18.3 H (11.5-14.5) % Plt Count 273 (130-400) K/uL MPV 10.2 (7.4-10.4) fL Immature Gran % (Auto) 0.8 % Neut % (Auto) 69.2 % Lymph % (Auto) 17.4 % Sabine % (Auto) 10.6 % Eos % (Auto) 1.7 % Baso % (Auto) 0.3 % Neut # (Auto) 9.55 H (1.4-6.5) K/uL Lymph # (Auto) 2.41 (1.2-3.4) K/uL Sabine # (Auto) 1.47 H (0.11-0.59) K/uL Eos # (Auto) 0.24 (0-0.5) K/uL Baso # (Auto) 0.04 (0-0.2) K/uL Immature Gran # (Auto) 0.11 H (0.00-0.02) K/uL PT 30.1 H (9.0-12.0) Seconds INR 3.0 H (0.9-1.1) Sodium 128 L (136-145) mmol/L Potassium 3.8 (3.5-5.1) mmol/L Chloride 86 L (98-107) mmol/L Carbon Dioxide 32 (21-32) mmol/L Anion Gap 10 (3-11) BUN 88 H (6-23) mg/dl Creatinine 3.11 H D (0.6-1.4) mg/dl Est Cr Clr Drug Dosing 38.2 ml/min Est GFR ( Amer) 23.9 ml/min Est GFR (Non-Af Amer) 20.7 ml/min BUN/Creatinine Ratio 28.3 H (10-20) Glucose 90 (70-99(Fasting)) mg/dl Calcium 9.4 (8.5-10.1) mg/dl
[2021-10-07] MEDS: POTASSIUM CHLORIDE CRTAB 20 MEQ TABCR PO SCH ×2 (07:52→22:10)
[2021-10-07] MEDS: SPIRONOLACTONE 25 MG TAB PO SCH ×2 (07:53→22:14)
[2021-10-07] MEDS: lamoTRIgine 100 MG TAB PO SCH ×2 (07:53→22:11)
[2021-10-07] MEDS: METOPROLOL SUCC 50MG EXT REL TAB PO SCH (07:53)
[2021-10-07] MEDS: ROSUVASTATIN CALCIUM 20 MG TAB PO SCH (07:53)
[2021-10-07] MEDS: GABAPENTIN 600 MG TAB PO SCH ×2 (07:53→22:12)
[2021-10-07] MEDS: ARIPiprazole 5 MG TAB PO SCH (07:54)
[2021-10-07] MEDS: TORSEMIDE 100 MG TAB PO SCH ×2 (07:54→15:24)
[2021-10-07] MEDS: EZETIMIBE 10 MG TABLET PO SCH (07:54)
[2021-10-07 07:55] LABS: Basophils # (auto) 0.04 K/uL (0-0.2); Basophils % (auto) 0.3 %; Eosinophils # (auto) 0.24 K/uL (0-0.5); Eosinophils % (auto) 1.7 %; Hematocrit (blood only) 38.3 % (42-52); Hemoglobin 12.7 g/dL (14.0-18.0); Immature Granulocytes # (auto) 0.11 K/uL (0.00-0.02); Immature Granulocytes % (auto) 0.8 %; Lymphocytes # (auto) 2.41 K/uL (1.2-3.4); Lymphocytes % (auto) 17.4 %; Mean Corpuscular Hemoglobin 27.1 pg (25-34); Mean Corpuscular Hgb Conc 33.2 g/dL (32-36); Mean Corpuscular Volume 81.8 fL (80-100); Mean Platelet Volume 10.2 fL (7.4-10.4); Monocytes # (auto) 1.47 K/uL (0.11-0.59); Monocytes % (auto) 10.6 %; Neutrophils # (auto) 9.55 K/uL (1.4-6.5); Neutrophils % (auto) 69.2 %; Platelet Count 273 K/uL (130-400); RDW Coefficient of Variation 18.3 % (11.5-14.5); RDW Standard Deviation 54.6 fL (36.4-46.3); Red Blood Count 4.68 M/uL (4.7-6.1); White Blood Count 13.82 K/uL (4.8-10.8)
[2021-10-07] MEDS: FLUTICASONE/VILANTEROL 200/25MCG 14 PUFFS/INHALER INH SCH (07:55)
[2021-10-07 08:02] LABS: Prothrombin Time 30.1 Seconds (9.0-12.0)
[2021-10-07 08:18] LABS: BUN Creatinine Ratio 28.3 (10-20); Calcium 9.4 mg/dl (8.5-10.1); Creatinine Clr Calc Pharmacy 38.2 ml/min; Est GFR (African American) 23.9 ml/min; Est GFR (Non-African American) 20.7 ml/min; Potassium 3.8 mmol/L (3.5-5.1)
[2021-10-07] MEDS: ISOSORBIDE MONO EXTENDED REL 30 MG TABCR PO SCH (09:21)
--- NOTE | 2021-10-07 11:46 | Nephrology Progress Note ---
Date of Service October 07, 2021 Assessment & Plan (1) Acute on chronic right-sided heart failure: Plan: Patient with acute on chronic right-sided heart failure. He is on 2L this AM. diuresis slowing w/ him being on lower lasix dosing. Patient was net -3.1L neg 10/02; net 1L neg 10/03; 4.2L negative 10/04; 3.32 L negative 10/05 according to I/O but weights belie this. First standing wt this hospitalization is 178.3 on 10/02; pt at 176.5 10/04; 175.4 10/05; 175.1 on 10/06; 175.4 on 10/07. renal function worsened 2.7>3.1 on 10/04 and now plateau'd -after receiving AM lasix, changed to torsemide 100 mg bid17 -changed metolazone to 2.5 mg MWF -cont aldactone 50 mg bid -will give extra dose of K today 60 mEq -daily bmp; renal function may well worsen further before stabilizing -Monitor input output strictly -agree w/ cardiology recommendations re bipap -continue daily standing weights -cont tightened FR 1.2L; added low Na diet (2) Acute renal insufficiency: Plan: Baseline creatinine 2.2; stage 1 nonoliguric EDSON from cardiorenal syndrome. Creatinine again worst it's been this admission after slight improvement yesterday >> suspect d/t extra diuretic dose yesterday and would not change dosing at this time; chemistries acceptable except for hyponatremia which is chronic and stable; longer term renal prognosis poor. We will continue diuresis as above. Avoid nephrotoxins and monitor renal function with a BMP daily Admission and Anticipated Discharge Date Admission Date: September 27, 2021 Subjective slept poorly; no c/o worsening dyspnea or edema. Review of Systems Review of Systems: All systems reviewed & are unremarkable except as noted in Subjective Physical Exam Constitutional: well developed, well nourished and + morbidly obese; no acute distress Eyes: EOM intact bilaterally ENMT: Ears: no external ear abnormality Nose: no external nose abnormality Mouth: + dry oral mucous membranes Neck: no nuchal rigidity Respiratory: normal respiratory effort (sitting in bed on RA) Auscultation: + diminished lung sounds Cardiovascular: Rate/Rhythm: regular rate and regular rhythm Extremities: + edema (trace BLE) Gastrointestinal (Abdomen): Inspection/Auscultation: normal bowel sounds Percussion/Palpation: abdomen soft; abdomen nontender Musculoskeletal: Extremities: strength 5/5 throughout Skin: no rashes, warm and dry Psychiatric: Orientation: oriented to person and oriented to place Insight: + limited insight Results & Data ([facility]) Vital Signs (Past 12 Hours) Vital Signs Temp Pulse Resp BP BP Pulse Ox 10/07/21 11:15 36.8 C 83 19 115/66 93 10/07/21 07:34 37.1 C 78 18 133/76 96 10/07/21 04:00 36.8 C 81 20 112/70 95 10/07/21 03:30 12 Laboratory Results 10/07/21 07:36 10/07/21 07:17
--- NOTE | 2021-10-07 12:59 | Gastrointestinal Consultation ---
Date of Consultation October 07, 2021 Assessment & Plan (1) Rectal bleeding: (2) Anemia: Pt is a 61 yo male currently admitted for R sided HF, seen for rectal bleeding and anemia. Hx of Afib on Coumadin, INR 3. He had colon polyps, int hemorrhoids and diverticulosis on last colonoscopy in 2016. DDx: hemorrhoidal bleed, AVM, ulcer. - Monitor blood ct closely and for further s/s of GI bleeding - Anusol 25mg NH prn hemorrhoidal bleeding - Recommended repeat inpt vs outpt colonoscopy to r/o colonic masses, AVM, ulcer however pt refused. - Recall GI prn Supervising Physician Co-Signing Physician Notes Attg add: I interviewed and examined pt, reviewed chart and labs. Pt with BRBPR, anemia. PE shows hemorrhoids. Last csocpy in 2016. We recommended colonoscopy, but pt refused. He is aware of risks of refusing colonoscopy, including risk of occult neoplasm. Please re-consult as needed. History of Present Illness Reason for Consultation: Anemia, rectal bleeding Requesting Physician: Dr. Georgia Valencia Attending Physician: Dr. Bishop Jacques History of Present Illness Pt is a 61 yo male w PMHx of CAD s/p CABG, Afib on Coumadin, CKD, HTN, HLD, OSCAR, hx of COVID, currently admitted for R sided HF. GI consulted as pt passed BRBPR during BM last night. Pt reports he has intermittent hematochezia in the past few months. Stools are brown but blood would be mixed in stool. He denies associated abd pain, n/v, appetite/weigth loss. He states he had a "tear" on rectum before. However denies any bowel habit changes specifically not feeling constipated or straining a lot during recent bowel movement. Hgb noted to drop from baseline 15 -> 12, INR 3. BUN/Cr 88/3.1 EGD/Colonoscopy 08/2016: gastritis, ? Barretts; sessile colon polyps, sigmoid diverticulosis, internal hemorrhoids Allergies Allergy/AdvReac Type Severity Reaction Status Date / Time morphine AdvReac Mild nausea and Verified 09/27/21 12:25 vomiting Home Medications Medication Instructions Recorded Confirmed Type albuterol sulfate 90 mcg/actuation 2 puff INHALATION QID PRN 05/04/18 09/27/21 History aerosol inhaler (ProAir HFA) gabapentin 600 mg tablet 600 mg PO BID 05/04/18 09/27/21 History isosorbide mononitrate 30 mg 30 mg PO QAM 05/04/18 09/27/21 History tablet,extended release 24 hr lamotrigine 200 mg tablet 200 mg PO BID 05/04/18 09/27/21 History (Lamictal) nitroglycerin 0.4 mg sublingual 0.4 mg SUBLINGUAL DIRECTED PRN 05/04/18 History tablet (Nitrostat) topiramate 25 mg tablet (Topamax) 25 mg PO BID 05/04/18 09/27/21 History zolpidem 5 mg tablet (Ambien) 5 mg PO HS PRN 05/04/18 09/27/21 History albuterol sulfate 2.5 mg INHALATION Q6 PRN 03/03/20 09/27/21 History aripiprazole 5 mg tablet (Abilify) 5 mg PO QAM 03/03/20 09/27/21 History fluticasone 250 mcg-salmeterol 50 1 inh INHALATION BID 03/03/20 09/27/21 History mcg/dose blistr powdr for inhalation (Advair Diskus) rosuvastatin 40 mg tablet (Crestor) 40 mg PO DAILY 03/03/20 09/27/21 History metoprolol succinate 50 mg 50 mg PO DAILY 02/05/21 09/27/21 History tablet,extended release 24 hr quetiapine 200 mg tablet (Seroquel) 200 mg PO HS 02/05/21 09/27/21 History spironolactone 50 mg tablet 50 mg PO BID 02/05/21 09/27/21 History warfarin 5 mg tablet 5 mg PO UD 02/05/21 09/27/21 History ezetimibe 10 mg tablet 10 mg PO DAILY 06/24/21 09/27/21 History tamsulosin 0.4 mg capsule 0.4 mg PO HS 06/24/21 09/27/21 History metolazone 5 mg tablet 2.5 mg PO MOWEFR #6 tab 07/05/21 09/27/21 Rx potassium chloride 20 mEq 60 meq PO TID #300 tab 07/05/21 09/27/21 Rx tablet,extended release(part/cryst) cholecalciferol (vitamin D3) 125 125 mcg PO QDD 07/28/21 09/27/21 History mcg (5,000 unit) tablet (Vitamin D3) torsemide 20 mg tablet 100 mg PO BID #300 tab 08/05/21 09/27/21 Rx Patient History Medical History CAD (coronary artery disease) CAD (coronary artery disease) Chronic atrial fibrillation Chronic back pain CKD (chronic kidney disease) stage 3, GFR 30-59 ml/min Cor pulmonale Depression HTN (hypertension) Hyperlipidemia Hypertension Obesities, morbid OSCAR (obstructive sleep apnea) Volume overload Surgical History S/P CABG x 4 Social History Smoking Status: Never smoker Second Hand Exposure: No; Hx Alcohol Use: No Hx Substance Use: No Preferred Language: Marshallese Communication Ability: Effective Hearing Ability: Normal Tram Operator Required: No Beliefs That Will Affect Care: None marital status: Single Current Living Situation: Alone Current Living Situation Comment: fist floor appartment Feels Safe at Home: Yes Assistive Devices: BiPap and Oxygen - Continuous Review of Systems Review of Systems: All systems reviewed & are unremarkable except as noted in HPI & below Physical Exam Constitutional: + morbidly obese, cooperative and comfortable Eyes: PERRL, conjunctivae normal, anicteric sclerae ENMT: external ear and nose normal, oropharynx normal Respiratory: normal respiratory effort, lungs clear to auscultation Cardiovascular: RRR, no murmur, no edema Gastrointestinal (Abdomen): normal bowel sounds, soft, nontender, no hepatosplenomegaly Rectal: no fissure or external hemorrhoids noted. Internal hemorrhoids palpated, no rectal mass. Brown stool noted Skin: no rashes, warm and dry no jaundice Psychiatric: A+Ox3, euthymic affect Lymphatic: no lymphedema Results & Data ([facility]) Vital Signs (Past 12 Hours) Vital Signs Temp Pulse Resp BP BP Pulse Ox 10/07/21 11:15 36.8 C 83 19 115/66 93 10/07/21 07:34 37.1 C 78 18 133/76 96 10/07/21 04:00 36.8 C 81 20 112/70 95 10/07/21 03:30 12
[2021-10-07] MEDS: CHOLECALCIFEROL 5,000 UNITS 125 MCG TAB PO SCH (15:24)
[2021-10-07] MEDS: ALBUTEROL 0.083% NEBU SOLN 3 ML VIAL INH PRN (15:42)
[2021-10-07] MEDS: ACETAMINOPHEN 500 MG TAB PO PRN (16:16)
--- NOTE | 2021-10-07 16:52 | Hospitalist Progress Note ---
Date of Service October 07, 2021 Assessment & Plan (1) Acute on chronic right-sided heart failure: Plan: cont diuresis efforts per nephrology. medication adjustments, strict i/os, daily weights. (2) Noncompliance: Plan: doesn't qualify for rehab, discussed care plan with he and his sister Kat by phone. Inpatient continuous pillowcase cutter also assisting with resources. (3) Chronic atrial fibrillation: Plan: Chronic atrial fibrillation sick sinus syndrome S/P PPM INR therapeutic,heparin drip stopped. Coumadin held in setting of hematochezia Monitor INR which is currently therapeutic Continue metoprolol (4) Elevated d-dimer: Plan: Elevated D-dimer Doppler US:No DVT within the right or left lower extremity. Could not obtain CTA given renal insufficiency Likely would not filter changer given anticoagulation (5) CAD (coronary artery disease): Plan: Coronary artery disease S/P CABG Hypertension chronic, stable/at goal, Continue home medications (6) Elevated troponin: Plan: Chronic troponin elevation In setting of CKD, CHF Patient denies any chest pain EKG this admission showed no signs of acute ischemia (7) Morbid obesity: Plan: Counseled on lifestyle modifications including the importance of diet modification. Goal would be overall decrease percent body fat and increased lean muscle mass. Plan: Chronic hyponatremia Likely secondary to diuretics and antipsychotics, decreased lasix as above. Sodium 128, cont current medications with adjustments per nephrology. EDSON on chronic kidney disease, stage 3 2/2 diuresis Creatinine 2.1, baseline creatinine increased>3 with ongoing diuresis cont per nephrology. Tremor appears to have resolved with holding topiramate. Denies lightheadedness with ambulation. Cont holding it now. Electrolytes/EDSON may also be contributing Will cont to monitor with changes as above. Obstructive sleep apnea on BiPAP HS COPD chronic, stable without signs of exacerbation Continue home inhalers Chronic back pain chronic, stable, cont current management. DVT Px: Coumadin Code Status Full Code DO [facility] Admission and Anticipated Discharge Date Admission Date: September 27, 2021 Subjective 61 yo M admitted for acute on chronic right sided heart failure Breathing improved reports no issues with tremors today and some lightheadedness with ambulation, however, this was right after he woke up this morning and he thinks this had something to do with it. Lightheadedness has resolved. denies chest pain or SOB overall feeling well Review of Systems Review of Systems: All systems were reviewed and negative except as indicated in subjective above. Physical Exam Physical Exam: CONSTITUTIONAL: morbidly obese, vitals as above, generally well-appearing, NAD EYES: normal conjunctivae, no scleral icterus ENT: external ear and nose normal, MMM NECK: trachea midline, RESPIRATORY: clear to auscultation bilaterally, diminished breath sounds at bases, no crackles, rales or wheezes, normal respiratory effort, min conversational dyspnea. CARDIOVASCULAR: regular rate and rhythm, S1 and 2 heard without murmurs, gallops or rubs, no JVD, no peripheral edema, CHEST: inspection of chest was normal GASTROINTESTINAL: soft, protuberant, nontender, ND, no guarding MUSCULOSKELETAL: strength 5/5 throughout, head is normocephalic and atraumatic, some difficulty moving around the bed but ultimately he can do this independently SKIN: warm and dry, NEUROLOGIC: No facial palsy, no dysarthria. CN 2-12 grossly intact, no sensory deficit, normal cognition, normal speech, no tremor PSYCHIATRIC: alert cooperative and oriented to person, place and time. Results & Data Results & Data ([facility]) Vital Signs (Past 12 Hours) Vital Signs Temp Pulse Pulse Resp BP BP Pulse Ox 10/07/21 15:43 75 97 10/07/21 15:27 36.5 C 69 20 116/69 94 10/07/21 15:04 75 10/07/21 11:15 36.8 C 83 19 115/66 93 10/07/21 07:34 37.1 C 78 18 133/76 96 Laboratory Results Short CBC 10/07/21 Range/Units 07:36 WBC 13.82 H (4.8-10.8) K/uL Hgb 12.7 L (14.0-18.0) g/dL Hct 38.3 L (42-52) % Plt Count 273 (130-400) K/uL BMP 10/07/21 07:17 Sodium 128 L Potassium 3.8 Chloride 86 L Carbon Dioxide 32 BUN 88 H Creatinine 3.11 H D Glucose 90 Calcium 9.4 Medications Administered Current Inpatient Medications Acetaminophen (Acetaminophen 500 Mg Tab) 1,000 mg PO Q8H PRN PRN Reason: pain or fever Stop: 10/29/21 17:59 Last Admin: 10/07/21 16:16 Dose: 1,000 mg Documented by: Albuterol (Albuterol Hfa 8 Gm Inhaler) 2 puffs INH QID PRN PRN Reason: Shortness Of Breath Or Wheezing Stop: 10/27/21 18:36 Albuterol (Albuterol 0.083% Nebu Soln 3 Ml Vial) 2.5 mg INH Q6 PRN; Protocol PRN Reason: Shortness Of Breath Or Wheezing Stop: 10/27/21 18:36 Last Admin: 10/07/21 15:42 Dose: 2.5 mg Documented by: Aripiprazole (Aripiprazole 5 Mg Tab) 5 mg PO QAM [facility] Stop: 10/28/21 08:59 Last Admin: 10/07/21 07:54 Dose: 5 mg Documented by: Ezetimibe (Ezetimibe 10 Mg Tablet) 10 mg PO DAILY [facility] Stop: 10/28/21 08:59 Last Admin: 10/07/21 07:54 Dose: 10 mg Documented by: Fluticasone/Vilanterol (Fluticasone/Vilanterol 200/25mcg 14 Puffs/Inhaler) 1 puffs INH DAILY [facility] Stop: 10/28/21 08:59 Last Admin: 10/07/21 07:55 Dose: 1 puffs Documented by: Gabapentin (Gabapentin 600 Mg Tab) 600 mg PO BID [facility] Stop: 10/27/21 20:59 Last Admin: 10/07/21 07:53 Dose: 600 mg Documented by: Heparin Sodium (Porcine) (Heparin 100 Unit/Ml 5ml Flush) 5 ml FLUSH PRN PRN PRN Reason: Flush Stop: 10/31/21 07:19 Last Admin: 10/06/21 05:53 Dose: 5 ml Documented by: Isosorbide Mononitrate (Isosorbide [place] Extended Rel 30 Mg Tabcr) 30 mg PO QAM [facility] Stop: 10/28/21 08:59 Last Admin: 10/07/21 09:21 Dose: 30 mg Documented by: Lamotrigine (Lamotrigine 100 Mg Tab) 200 mg PO BID [facility] Stop: 10/27/21 20:59 Last Admin: 10/07/21 07:53 Dose: 200 mg Documented by: Menthol (Cough Drop (Sugar Free) Lety 24 Lety/1 Box) 1 lety BUCCAL NOW PRN PRN Reason: Sore Throat Stop: 11/03/21 14:31 Last Admin: 10/04/21 16:14 Dose: 1 lety Documented by: Metolazone (Metolazone 2.5 Mg Tablet) 2.5 mg PO MoWeFr [facility] Stop: 11/07/21 07:59 Metoprolol Succinate (Metoprolol Succ 50mg Ext Rel Tab) 50 mg PO DAILY [facility] Stop: 10/28/21 08:59 Last Admin: 10/07/21 07:53 Dose: 50 mg Documented by: Miconazole Nitrate (Miconazole Nitrate Powder 43 Gm) 1 appln EXT PRN PRN PRN Reason: Affected Skin Folds Stop: 11/01/21 09:24 Last Admin: 10/04/21 08:41 Dose: 1 appln Documented by: Nitroglycerin (Nitroglycerin Sl 0.4 Mg/Tab Tab) 0.4 mg SL UD PRN PRN Reason: Chest Pain Stop: 10/27/21 18:36 Ondansetron HCl (Ondansetron Inj 2 Mg/Ml 2 Ml Vial) 4 mg IV Q6H PRN PRN Reason: Nausea Stop: 10/27/21 18:36 Last Admin: 10/01/21 19:37 Dose: 4 mg Documented by: Phenylephrine HCl (Anusol Supp 1 Ea) 1 ea [place] HS PRN PRN Reason: Hemorrhoids Stop: 11/06/21 20:59 Polyethylene Glycol (Polyethylene (Miralax) 17 Gm Pack) 17 gm PO DAILY PRN PRN Reason: Constipation Stop: 10/27/21 18:36 Potassium Chloride (Potassium Chloride Crtab 20 Meq Tabcr) 40 meq PO BID [facility] Stop: 10/30/21 20:59 Last Admin: 10/07/21 07:52 Dose: 40 meq Documented by: Quetiapine Fumarate (Quetiapine Fumarate 200 Mg Tab) 200 mg PO HS [facility] Stop: 10/27/21 20:59 Last Admin: 10/06/21 23:04 Dose: 200 mg Documented by: Rosuvastatin Calcium (Rosuvastatin Calcium 20 Mg Tab) 40 mg PO DAILY [facility] Stop: 10/28/21 08:59 Last Admin: 10/07/21 07:53 Dose: 40 mg Documented by: Spironolactone (Spironolactone 25 Mg Tab) 50 mg PO BID [facility] Stop: 10/27/21 20:59 Last Admin: 10/07/21 07:53 Dose: 50 mg Documented by: Tamsulosin HCl (Tamsulosin Hcl 0.4 Mg Cap) 0.4 mg PO HS [facility] Stop: 10/27/21 20:59 Last Admin: 10/06/21 20:34 Dose: 0.4 mg Documented by: Topiramate (Topiramate 25 Mg Tab) 25 mg PO BID [facility] Stop: 10/27/21 20:59 Last Admin: 10/03/21 07:50 Dose: 25 mg Documented by: Torsemide (Torsemide 100 Mg Tab) 100 mg PO BID17 [facility] Stop: 11/05/21 16:59 Last Admin: 10/07/21 15:24 Dose: 100 mg Documented by: Tramadol HCl (Tramadol Hcl 50 Mg Tablet) 50 mg PO Q12H PRN PRN Reason: severe pain Stop: 10/29/21 17:49 Trolamine Salicylate (Trolamine Salicylate 10% Crm 255 Appln/85 Gm Tube) 1 appln EXT TID PRN PRN Reason: back pain Stop: 10/29/21 17:59 Last Admin: 10/06/21 23:04 Dose: 1 appln Documented by: Vitamin D (Cholecalciferol 5,000 Units 125 Mcg Tab) 5,000 units PO QDD [facility] Stop: 10/28/21 16:29 Last Admin: 10/07/21 15:24 Dose: 5,000 units Documented by: Warfarin Sodium (Warfarin Sod 5 Mg Tab) 5 mg PO DAILY@1600 [facility] Stop: 10/28/21 15:59 Last Admin: 10/06/21 15:56 Dose: 5 mg Documented by: Zolpidem Tartrate (Zolpidem Tartrate 5 Mg Tab) 5 mg PO HS PRN PRN Reason: Sleep Stop: 10/27/21 18:36 Last Admin: 10/06/21 23:04 Dose: 5 mg Documented by:
[2021-10-07] MEDS ORDERED: ANUSOL SUPP 1 EA PR PRN (21:00)
[2021-10-07] MEDS: TAMSULOSIN HCL 0.4 MG CAP PO SCH (22:13)
[2021-10-07] MEDS: ZOLPIDEM TARTRATE 5 MG TAB PO PRN (23:02)
[2021-10-07] MEDS: QUEtiapine FUMARATE 200 MG TAB PO SCH (23:02)
[2021-10-08] MEDS: HEPARIN 100 UNIT/ML 5ML FLUSH FLUSH PRN (06:24)
[2021-10-08] MEDS: ISOSORBIDE MONO EXTENDED REL 30 MG TABCR PO SCH (08:38)
[2021-10-08] MEDS: EZETIMIBE 10 MG TABLET PO SCH (08:38)
[2021-10-08] MEDS: TORSEMIDE 100 MG TAB PO SCH (08:38)
[2021-10-08] MEDS: SPIRONOLACTONE 25 MG TAB PO SCH ×2 (08:38→20:10)
[2021-10-08] MEDS: GABAPENTIN 600 MG TAB PO SCH ×2 (08:38→20:07)
[2021-10-08] MEDS: ARIPiprazole 5 MG TAB PO SCH (08:39)
[2021-10-08] MEDS: metOLazone 2.5 MG TABLET PO SCH (08:39)
[2021-10-08] MEDS: METOPROLOL SUCC 50MG EXT REL TAB PO SCH (08:39)
[2021-10-08] MEDS: POTASSIUM CHLORIDE CRTAB 20 MEQ TABCR PO SCH ×2 (08:39→20:08)
[2021-10-08] MEDS: lamoTRIgine 100 MG TAB PO SCH ×2 (08:39→20:07)
[2021-10-08] MEDS: ROSUVASTATIN CALCIUM 20 MG TAB PO SCH (08:39)
[2021-10-08] MEDS: FLUTICASONE/VILANTEROL 200/25MCG 14 PUFFS/INHALER INH SCH (08:40)
[2021-10-08] MEDS: ACETAMINOPHEN 500 MG TAB PO PRN ×2 (08:44→22:35)
[2021-10-08 09:19] LABS: Hematocrit (blood only) 40.3 % (42-52); Hemoglobin 13.5 g/dL (14.0-18.0); Mean Corpuscular Hgb Conc 33.5 g/dL (32-36); Mean Corpuscular Volume 80.6 fL (80-100); Mean Platelet Volume 9.9 fL (7.4-10.4); Platelet Count 276 K/uL (130-400); RDW Coefficient of Variation 18.1 % (11.5-14.5); RDW Standard Deviation 53.5 fL (36.4-46.3); White Blood Count 13.95 K/uL (4.8-10.8)
[2021-10-08 09:29] LABS: INR 2.9 (0.9-1.1); Prothrombin Time 29.3 Seconds (9.0-12.0)
[2021-10-08 09:41] LABS: BUN Creatinine Ratio 30.8 (10-20); Calcium 9.7 mg/dl (8.5-10.1); Creatinine Clr Calc Pharmacy 39.2 ml/min; Est GFR (African American) 25.1 ml/min; Est GFR (Non-African American) 21.7 ml/min; Potassium 2.9 mmol/L (3.5-5.1)
[2021-10-08] MEDS ORDERED: POTASSIUM CHLORIDE CRTAB 20 MEQ TABCR PO STA ×2 (14:11→15:54)
--- NOTE | 2021-10-08 14:13 | Hospitalist Progress Note ---
Date of Service October 08, 2021 Assessment & Plan (1) Acute on chronic right-sided heart failure: Plan: cont diuresis efforts per nephrology. medication adjustments, strict i/os, daily weights. (2) Noncompliance: Plan: doesn't qualify for rehab, discussed care plan with he and his sister Kat by phone. Inpatient case preparer and liner also assisting with resources. (3) Chronic atrial fibrillation: Plan: Chronic atrial fibrillation sick sinus syndrome S/P PPM INR therapeutic,heparin drip stopped. Coumadin held in setting of hematochezia Monitor INR which is currently therapeutic Continue metoprolol (4) Elevated d-dimer: Plan: Elevated D-dimer Doppler US:No DVT within the right or left lower extremity. Could not obtain CTA given renal insufficiency Likely would not exchange operator given anticoagulation (5) CAD (coronary artery disease): Plan: Coronary artery disease S/P CABG Hypertension chronic, stable/at goal, Continue home medications (6) Elevated troponin: Plan: Chronic troponin elevation In setting of CKD, CHF Patient denies any chest pain EKG this admission showed no signs of acute ischemia (7) Morbid obesity: Plan: Counseled on lifestyle modifications including the importance of diet modification. Goal would be overall decrease percent body fat and increased lean muscle mass. Plan: Chronic hyponatremia Likely secondary to diuretics and antipsychotics, decreased lasix as above. Sodium 128, cont current medications with adjustments per nephrology. EDSON on chronic kidney disease, stage 3 2/2 diuresis Creatinine 2.1, baseline creatinine increased to 3.22 with ongoing diuresis cont per nephrology who prefers to keep him over the weekend until his renal function improves Patient verbalized understanding of this. Tremor appears to have resolved with holding topiramate. Would stop this at discharge and re-evaluate need on PCP followup. Denies lightheadedness with ambulation. Will cont to monitor with changes as above. Obstructive sleep apnea on BiPAP HS COPD chronic, stable without signs of exacerbation Continue home inhalers Chronic back pain chronic, stable, cont current management. DVT Px: Coumadin Code Status Full Code DO Geno Guerrero Hospitalist Admission and Anticipated Discharge Date Admission Date: September 27, 2021 Subjective 61 yo M admitted for acute on chronic right sided heart failure continues on diuretic therapy hypokalemia this am on scheduled K but additional K given denies chest pain, SOB , swelling ambulating without issue and moving overall much better since admission. Review of Systems Review of Systems: All systems were reviewed and negative except as indicated in subjective above. Physical Exam Physical Exam: CONSTITUTIONAL: morbidly obese, vitals as above, generally well-appearing, NAD EYES: normal conjunctivae, no scleral icterus ENT: external ear and nose normal, MMM NECK: trachea midline, RESPIRATORY: clear to auscultation bilaterally, diminished breath sounds at bases, no crackles, rales or wheezes, normal respiratory effort, min conversational dyspnea. CARDIOVASCULAR: regular rate and rhythm, S1 and 2 heard without murmurs, gallops or rubs, no JVD, no peripheral edema, CHEST: inspection of chest was normal GASTROINTESTINAL: soft, protuberant, nontender, ND, no guarding MUSCULOSKELETAL: strength 5/5 throughout, head is normocephalic and atraumatic, no gross focal deficits. SKIN: warm and dry, NEUROLOGIC: No facial palsy, no dysarthria. CN 2-12 grossly intact, no sensory deficit, normal cognition, normal speech, no tremor PSYCHIATRIC: alert cooperative and oriented to person, place and time. Results & Data Results & Data ([facility]) Vital Signs (Past 12 Hours) Vital Signs Temp Pulse Pulse Resp BP Pulse Ox 10/08/21 10:58 36.5 C 89 21 140/85 93 10/08/21 07:48 36.7 C 74 20 129/75 94 10/08/21 07:08 78 10/08/21 03:58 36.5 C 80 18 147/77 H 95 10/08/21 03:30 77 16 94 Laboratory Results Short CBC 10/08/21 Range/Units 08:57 WBC 13.95 H (4.8-10.8) K/uL Hgb 13.5 L (14.0-18.0) g/dL Hct 40.3 L (42-52) % Plt Count 276 (130-400) K/uL BMP 10/08/21 08:57 Sodium 128 L Potassium 2.9 L D Chloride 84 L Carbon Dioxide 33 H BUN 92 H Creatinine 2.99 H Glucose 159 H Calcium 9.7 Medications Administered Current Inpatient Medications Acetaminophen (Acetaminophen 500 Mg Tab) 1,000 mg PO Q8H PRN PRN Reason: pain or fever Stop: 10/29/21 17:59 Last Admin: 10/08/21 08:44 Dose: 1,000 mg Documented by: Albuterol (Albuterol Hfa 8 Gm Inhaler) 2 puffs INH QID PRN PRN Reason: Shortness Of Breath Or Wheezing Stop: 10/27/21 18:36 Albuterol (Albuterol 0.083% Nebu Soln 3 Ml Vial) 2.5 mg INH Q6 PRN; Protocol PRN Reason: Shortness Of Breath Or Wheezing Stop: 10/27/21 18:36 Last Admin: 10/07/21 15:42 Dose: 2.5 mg Documented by: Aripiprazole (Aripiprazole 5 Mg Tab) 5 mg PO QAM [facility] Stop: 10/28/21 08:59 Last Admin: 10/08/21 08:39 Dose: 5 mg Documented by: Ezetimibe (Ezetimibe 10 Mg Tablet) 10 mg PO DAILY [facility] Stop: 10/28/21 08:59 Last Admin: 10/08/21 08:38 Dose: 10 mg Documented by: Fluticasone/Vilanterol (Fluticasone/Vilanterol 200/25mcg 14 Puffs/Inhaler) 1 puffs INH DAILY [facility] Stop: 10/28/21 08:59 Last Admin: 10/08/21 08:40 Dose: 1 puffs Documented by: Gabapentin (Gabapentin 600 Mg Tab) 600 mg PO BID [facility] Stop: 10/27/21 20:59 Last Admin: 10/08/21 08:38 Dose: 600 mg Documented by: Heparin Sodium (Porcine) (Heparin 100 Unit/Ml 5ml Flush) 5 ml FLUSH PRN PRN PRN Reason: Flush Stop: 10/31/21 07:19 Last Admin: 10/08/21 06:24 Dose: 5 ml Documented by: Potassium Chloride (K Pito / Wtr) 10 meq in 100 mls @ 100 mls/hr IV Q1H STA; Protocol Stop: 10/08/21 15:10 Isosorbide Mononitrate (Isosorbide [place] Extended Rel 30 Mg Tabcr) 30 mg PO QAM [facility] Stop: 10/28/21 08:59 Last Admin: 10/08/21 08:38 Dose: 30 mg Documented by: Lamotrigine (Lamotrigine 100 Mg Tab) 200 mg PO BID [facility] Stop: 10/27/21 20:59 Last Admin: 10/08/21 08:39 Dose: 200 mg Documented by: Menthol (Cough Drop (Sugar Free) Lety 24 Lety/1 Box) 1 lety BUCCAL NOW PRN PRN Reason: Sore Throat Stop: 11/03/21 14:31 Last Admin: 10/04/21 16:14 Dose: 1 lety Documented by: Metolazone (Metolazone 2.5 Mg Tablet) 2.5 mg PO MoWeFr [facility] Stop: 11/07/21 07:59 Last Admin: 10/08/21 08:39 Dose: 2.5 mg Documented by: Metoprolol Succinate (Metoprolol Succ 50mg Ext Rel Tab) 50 mg PO DAILY [facility] Stop: 10/28/21 08:59 Last Admin: 10/08/21 08:39 Dose: 50 mg Documented by: Miconazole Nitrate (Miconazole Nitrate Powder 43 Gm) 1 appln EXT PRN PRN PRN Reason: Affected Skin Folds Stop: 11/01/21 09:24 Last Admin: 10/04/21 08:41 Dose: 1 appln Documented by: Nitroglycerin (Nitroglycerin Sl 0.4 Mg/Tab Tab) 0.4 mg SL UD PRN PRN Reason: Chest Pain Stop: 10/27/21 18:36 Ondansetron HCl (Ondansetron Inj 2 Mg/Ml 2 Ml Vial) 4 mg IV Q6H PRN PRN Reason: Nausea Stop: 10/27/21 18:36 Last Admin: 10/01/21 19:37 Dose: 4 mg Documented by: Phenylephrine HCl (Anusol Supp 1 Ea) 1 ea [place] HS PRN PRN Reason: Hemorrhoids Stop: 11/06/21 20:59 Polyethylene Glycol (Polyethylene (Miralax) 17 Gm Pack) 17 gm PO DAILY PRN PRN Reason: Constipation Stop: 10/27/21 18:36 Potassium Chloride (Potassium Chloride Crtab 20 Meq Tabcr) 40 meq PO BID [facility] Stop: 10/30/21 20:59 Last Admin: 10/08/21 08:39 Dose: 40 meq Documented by: Potassium Chloride (Potassium Chloride Crtab 20 Meq Tabcr) 40 meq PO NOW [facility] Stop: 10/08/21 14:12 Quetiapine Fumarate (Quetiapine Fumarate 200 Mg Tab) 200 mg PO HS [facility] Stop: 10/27/21 20:59 Last Admin: 10/07/21 23:02 Dose: 200 mg Documented by: Rosuvastatin Calcium (Rosuvastatin Calcium 20 Mg Tab) 40 mg PO DAILY [facility] Stop: 10/28/21 08:59 Last Admin: 10/08/21 08:39 Dose: 40 mg Documented by: Spironolactone (Spironolactone 25 Mg Tab) 50 mg PO BID [facility] Stop: 10/27/21 20:59 Last Admin: 10/08/21 08:38 Dose: 50 mg Documented by: Tamsulosin HCl (Tamsulosin Hcl 0.4 Mg Cap) 0.4 mg PO HS [facility] Stop: 10/27/21 20:59 Last Admin: 10/07/21 22:13 Dose: 0.4 mg Documented by: Torsemide (Torsemide 100 Mg Tab) 100 mg PO BID17 [facility] Stop: 11/05/21 16:59 Last Admin: 10/08/21 08:38 Dose: 100 mg Documented by: Tramadol HCl (Tramadol Hcl 50 Mg Tablet) 50 mg PO Q12H PRN PRN Reason: severe pain Stop: 10/29/21 17:49 Trolamine Salicylate (Trolamine Salicylate 10% Crm 255 Appln/85 Gm Tube) 1 appln EXT TID PRN PRN Reason: back pain Stop: 10/29/21 17:59 Last Admin: 10/06/21 23:04 Dose: 1 appln Documented by: Vitamin D (Cholecalciferol 5,000 Units 125 Mcg Tab) 5,000 units PO QDD [facility] Stop: 10/28/21 16:29 Last Admin: 10/07/21 15:24 Dose: 5,000 units Documented by: Warfarin Sodium (Warfarin Sod 5 Mg Tab) 5 mg PO DAILY@1600 [facility] Stop: 10/28/21 15:59 Last Admin: 10/06/21 15:56 Dose: 5 mg Documented by: Zolpidem Tartrate (Zolpidem Tartrate 5 Mg Tab) 5 mg PO HS PRN PRN Reason: Sleep Stop: 10/27/21 18:36 Last Admin: 10/07/21 23:02 Dose: 5 mg Documented by:
[2021-10-08] MEDS: POTASSIUM CHLORIDE / WTR 10 MEQ/100 ML PLCT IV SCH ×2 (14:57→16:02)
--- NOTE | 2021-10-08 15:56 | Nephrology Progress Note ---
Date of Service October 08, 2021 Assessment & Plan (1) Acute on chronic right-sided heart failure: Plan: Patient with acute on chronic right-sided heart failure. He is on RA. diuresis slowing w/ him being on lower lasix dosing. Patient was net -3.1L neg 10/02; net 1L neg 10/03; 4.2L negative 10/04; 3.32 L negative 10/05 according to I/O but weights belie this. First standing wt this hospitalization is 178.3 on 10/02; pt at 176.5 10/04; 175.4 10/05; 175.1 on 10/06; 175.4 on 10/07, 174.7 on 10/08. renal function worsened 2.7>3.1 on 10/04 and now plateau'd -lowered torsemide to 60 mg bid17 after am 100 mg daose -cont metolazone to 2.5 mg MWF -cont aldactone 50 mg bid -will give extra dose of K today 40 mEq x 2 po plus 20 mEq IV; in addition to standing order >>recheck bmp ordered for 1800 -daily bmp; renal function may well worsen further before stabilizing -Monitor input output strictly -agree w/ cardiology recommendations re bipap -continue daily standing weights -cont tightened FR 1.2L; added low Na diet Care coordinated w/ Dr Valencia (2) Acute renal insufficiency: Plan: Baseline creatinine 2.2; stage 1 nonoliguric EDSON from cardiorenal syndrome. Creatinine again worst it's been this admission or others >> hovering at about 3; suspect will improve w/ diuretic dose lowerings. K addressed as above; hyponatremia which is chronic and stable; longer term renal prognosis poor. We will continue diuresis as above. Avoid nephrotoxins and monitor renal function with a BMP daily Admission and Anticipated Discharge Date Admission Date: September 27, 2021 Subjective no interval events; breathing a bit better, wt down some. Review of Systems Review of Systems: All systems reviewed & are unremarkable except as noted in Subjective Physical Exam Constitutional: well developed, well nourished and + morbidly obese; no acute distress Eyes: EOM intact bilaterally ENMT: Ears: no external ear abnormality Nose: no external nose abnormality Mouth: + dry oral mucous membranes Neck: no nuchal rigidity Respiratory: normal respiratory effort (sitting in bed on RA) Auscultation: + diminished lung sounds Cardiovascular: Rate/Rhythm: regular rate and regular rhythm Extremities: + edema (trace BLE, improving) Gastrointestinal (Abdomen): Inspection/Auscultation: normal bowel sounds Percussion/Palpation: abdomen soft; abdomen nontender Musculoskeletal: Extremities: strength 5/5 throughout Skin: no rashes, warm and dry Psychiatric: Orientation: oriented to person and oriented to place Insight: + limited insight Results & Data ([facility]) Vital Signs (Past 12 Hours) Vital Signs Temp Pulse Pulse Resp BP BP Pulse Ox 10/08/21 15:47 78 10/08/21 15:33 36.5 C 88 19 123/81 93 10/08/21 10:58 36.5 C 89 21 140/85 93 10/08/21 07:48 36.7 C 74 20 129/75 94 10/08/21 07:08 78 10/08/21 03:58 36.5 C 80 18 147/77 H 95 Laboratory Results 10/08/21 08:57 10/08/21 08:57
[2021-10-08] MEDS: WARFARIN SOD 5 MG TAB PO SCH (16:10)
[2021-10-08] MEDS: CHOLECALCIFEROL 5,000 UNITS 125 MCG TAB PO SCH (16:10)
[2021-10-08] MEDS: TORSEMIDE 10 MG TAB PO SCH (18:01)
[2021-10-08 18:29] LABS: Potassium 4.2 mmol/L (3.5-5.1)
[2021-10-08 18:30] LABS: BUN Creatinine Ratio 28.3 (10-20); Creatinine Clr Calc Pharmacy 36.8 ml/min; Est GFR (Non-African American) 19.8 ml/min
[2021-10-08] MEDS: TAMSULOSIN HCL 0.4 MG CAP PO SCH (20:11)
[2021-10-08] MEDS: QUEtiapine FUMARATE 200 MG TAB PO SCH (22:35)
[2021-10-08] MEDS: ZOLPIDEM TARTRATE 5 MG TAB PO PRN (22:35)
[2021-10-09 06:06] LABS: Hematocrit (blood only) 40.7 % (42-52); Hemoglobin 13.6 g/dL (14.0-18.0); Mean Corpuscular Hemoglobin 27.2 pg (25-34); Mean Corpuscular Hgb Conc 33.4 g/dL (32-36); Mean Corpuscular Volume 81.4 fL (80-100); Mean Platelet Volume 10.2 fL (7.4-10.4); Platelet Count 280 K/uL (130-400); RDW Coefficient of Variation 18.2 % (11.5-14.5); RDW Standard Deviation 54.2 fL (36.4-46.3); White Blood Count 15.11 K/uL (4.8-10.8)
[2021-10-09 06:25] LABS: INR 2.4 (0.9-1.1)
[2021-10-09 06:28] LABS: Calcium 10.4 mg/dl (8.5-10.1); Est GFR (African American) 30.7 ml/min; Est GFR (Non-African American) 26.5 ml/min; Magnesium 2.4 mg/dl (1.7-2.4); Phosphorus 3.8 mg/dl (2.5-4.9); Potassium 3.4 mmol/L (3.5-5.1)
[2021-10-09] MEDS: HEPARIN 100 UNIT/ML 5ML FLUSH FLUSH PRN ×2 (06:47→23:17)
[2021-10-09] MEDS: ALBUTEROL 0.083% NEBU SOLN 3 ML VIAL INH PRN (07:36)
[2021-10-09] MEDS: lamoTRIgine 100 MG TAB PO SCH ×2 (08:06→21:33)
[2021-10-09] MEDS: GABAPENTIN 600 MG TAB PO SCH ×2 (08:06→21:33)
[2021-10-09] MEDS: FLUTICASONE/VILANTEROL 200/25MCG 14 PUFFS/INHALER INH SCH (08:06)
[2021-10-09] MEDS: POTASSIUM CHLORIDE CRTAB 20 MEQ TABCR PO SCH ×2 (08:06→21:32)
[2021-10-09] MEDS: ISOSORBIDE MONO EXTENDED REL 30 MG TABCR PO SCH (08:07)
[2021-10-09] MEDS: ARIPiprazole 5 MG TAB PO SCH (08:07)
[2021-10-09] MEDS: METOPROLOL SUCC 50MG EXT REL TAB PO SCH (08:07)
[2021-10-09] MEDS: EZETIMIBE 10 MG TABLET PO SCH (08:07)
[2021-10-09] MEDS: TORSEMIDE 10 MG TAB PO SCH ×2 (08:08→16:45)
[2021-10-09] MEDS: SPIRONOLACTONE 25 MG TAB PO SCH ×2 (08:08→21:34)
[2021-10-09] MEDS: ROSUVASTATIN CALCIUM 20 MG TAB PO SCH (08:08)
--- NOTE | 2021-10-09 08:55 | Nephrology Progress Note ---
Date of Service October 09, 2021 Assessment & Plan (1) Acute on chronic right-sided heart failure: Plan: Patient with acute on chronic right-sided heart failure. He is on RA. diuresis slowing w/ him being on lower lasix dosing. Patient was net -3.1L neg 10/02; net 1L neg 10/03; 4.2L negative 10/04; 3.32 L negative 10/05 according to I/O but weights belie this. First standing wt this hospitalization is 178.3 on 10/02; pt at 176.5 10/04; 175.4 10/05; 175.1 on 10/06; 175.4 on 10/07, 174.7 on 10/08. renal function worsened 2.7>3.1 on 10/04 and now plateau'd -lowered torsemide to 60 mg bid ON 10/08- continues to have good UOP. -cont metolazone to 2.5 mg MWF and aldactone 50 bid. -will give extra dose of K today 40 mEq , in addition to standing order -Daily bmp; renal function have started to improve. -Monitor input output strictly -continue daily standing weights -cont tightened FR 1.2L; added low Na diet (2) Acute renal insufficiency: Plan: Baseline creatinine 2.2; stage 1 nonoliguric EDSON from cardiorenal syndrome. Creatinine again worst it's been this admission or others >> hovering at about 3;improved w/ diuretic dose lowerings. K addressed as above; hyponatremia which is chronic and stable; longer term renal prognosis poor. We will continue diuresis as above. Avoid nephrotoxins and monitor renal function with a BMP daily Admission and Anticipated Discharge Date Admission Date: September 27, 2021 Subjective 61 yo M admitted for acute on chronic right sided heart failure Continue on diuretic therapy Good urine output. Review of Systems Review of Systems: All other systems were reviewed and negative except as noted in HPI Results & Data ([facility]) Vital Signs (Past 12 Hours) Vital Signs Temp Pulse Pulse Resp BP BP Pulse Ox 10/09/21 08:09 36.3 C L 79 16 128/75 92 10/09/21 07:38 77 20 96 10/09/21 07:12 62 10/09/21 04:05 94 10/09/21 03:38 19 10/09/21 03:15 36.4 C L 75 20 116/76 78 L 03/05/22 01:35 80 19 93 10/08/21 23:23 78 10/08/21 23:00 36.4 C L 76 20 146/91 H 97 Laboratory Results 10/09/21 05:43 10/09/21 05:43
[2021-10-09] MEDS ORDERED: POTASSIUM CHLORIDE CRTAB 20 MEQ TABCR PO STA (08:56)
[2021-10-09] MEDS: ACETAMINOPHEN 500 MG TAB PO PRN (15:39)
[2021-10-09] MEDS: WARFARIN SOD 5 MG TAB PO SCH (15:40)
[2021-10-09] MEDS: CHOLECALCIFEROL 5,000 UNITS 125 MCG TAB PO SCH (15:40)
[2021-10-09] MEDS: TROLAMINE SALICYLATE 10% CRM 255 APPLN/85 GM TUBE EXT PRN (15:41)
--- NOTE | 2021-10-09 16:07 | Hospitalist Progress Note ---
Date of Service October 09, 2021 Assessment & Plan (1) Acute on chronic right-sided heart failure: Plan: continue diuresis per nephrology. medication adjustments, strict I/Os daily weights. Currently on torsemide, aldactone and metolazone MWF (2) Noncompliance: Plan: doesn't qualify for rehab, Prior hospitalist discussed care plan with him and his sister Kat by phone. Inpatient transplant case manager also assisting with resources. (3) Chronic atrial fibrillation: Plan: Chronic atrial fibrillation sick sinus syndrome S/P PPM Continue coumadin, INR therapeutic Continue metoprolol (4) Elevated d-dimer: Plan: Elevated D-dimer Doppler US:No DVT within the right or left lower extremity. Could not obtain CTA given renal insufficiency Likely would not record changer given anticoagulation (5) CAD (coronary artery disease): Plan: Coronary artery disease S/P CABG Hypertension chronic, stable/at goal, Continue home medications (6) Elevated troponin: Plan: Chronic troponin elevation In setting of CKD, CHF Patient denies any chest pain EKG this admission showed no signs of acute ischemia (7) Morbid obesity: Plan: Needs lifestyle modifications including the importance of diet modification. Goal would be overall decrease percent body fat and increased lean muscle mass. Plan: Chronic hyponatremia Likely secondary to diuretics and antipsychotics, diuretic adjusted cont current medications with adjustments per nephrology. EDSON on chronic kidney disease, stage 3 likely cardiorenal syndrome Baseline Creatinine 2.2; creatinine increased to 3.22 with diuresis and now improving to 2.5 with adjustment, nephro managing Hypokalemia- Given an additional dose on top of standing dose. Recheck in am Hypercalcemia- mild, likely from diuresis. Recheck in am. Tremor appears to have resolved with holding topiramate. Would stop this at discharge and re-evaluate need on PCP followup. Denies lightheadedness with ambulation. Will cont to monitor with changes as above. Obstructive sleep apnea on BiPAP HS COPD chronic, stable without signs of exacerbation Continue home inhalers Chronic back pain chronic, stable, cont current management. DVT Px: Coumadin Code Status Full Code Dispo- Likely discharge in 1-2 days pending stabilization of renal function Admission and Anticipated Discharge Date Admission Date: September 27, 2021 Subjective Feels fine. Denies any new issues. Denies any pain, shortness of breath, nausea, vomiting. Normal appetite. Regular BM. Making urine. Ambulates to the bathroom without issues. Physical Exam Physical Exam: General: Morbidly obese, Lying comfortably in bed, not in distress, on room air HEENT: EOMI, DEIRDRE, MMM Chest: Clear breath sounds bilaterally, decreased at bases, no wheezes or crackles CVS: Regular rate and rhythm, normal heart sounds, no murmur Abdomen: Soft, non tender, not distended, normal bowel sounds Neuro: Awake, alert, oriented, conversing well, non focal Extremities: No cyanosis, clubbing or edema Results & Data Results & Data ([facility]) Vital Signs (Past 12 Hours) Vital Signs Temp Pulse Pulse Resp BP Pulse Ox 10/09/21 15:31 36.5 C 85 16 173/84 H 95 10/09/21 15:16 58 L 10/09/21 11:27 36.5 C 75 20 147/75 H 96 10/09/21 08:09 36.3 C L 79 16 128/75 92 10/09/21 07:38 77 20 96 10/09/21 07:12 62 10/09/21 04:05 94 Laboratory Results Short CBC 10/09/21 Range/Units 05:43 WBC 15.11 H (4.8-10.8) K/uL Hgb 13.6 L (14.0-18.0) g/dL Hct 40.7 L (42-52) % Plt Count 280 (130-400) K/uL BMP 10/08/21 10/09/21 17:46 05:43 Sodium 128 L 130 L Potassium 4.2 D 3.4 L Chloride 85 L 87 L Carbon Dioxide 33 H 33 H BUN 91 H 91 H Creatinine 3.22 H 2.53 H D Glucose 123 H 94 Calcium 10.0 10.4 H Medications Administered Current Inpatient Medications Acetaminophen (Acetaminophen 500 Mg Tab) 1,000 mg PO Q8H PRN PRN Reason: pain or fever Stop: 10/29/21 17:59 Last Admin: 10/09/21 15:39 Dose: 1,000 mg Documented by: Albuterol (Albuterol Hfa 8 Gm Inhaler) 2 puffs INH QID PRN PRN Reason: Shortness Of Breath Or Wheezing Stop: 10/27/21 18:36 Albuterol (Albuterol 0.083% Nebu Soln 3 Ml Vial) 2.5 mg INH Q6 PRN; Protocol PRN Reason: Shortness Of Breath Or Wheezing Stop: 10/27/21 18:36 Last Admin: 10/09/21 07:36 Dose: 2.5 mg Documented by: Aripiprazole (Aripiprazole 5 Mg Tab) 5 mg PO QAM [facility] Stop: 10/28/21 08:59 Last Admin: 10/09/21 08:07 Dose: 5 mg Documented by: Ezetimibe (Ezetimibe 10 Mg Tablet) 10 mg PO DAILY [facility] Stop: 10/28/21 08:59 Last Admin: 10/09/21 08:07 Dose: 10 mg Documented by: Fluticasone/Vilanterol (Fluticasone/Vilanterol 200/25mcg 14 Puffs/Inhaler) 1 puffs INH DAILY [facility] Stop: 10/28/21 08:59 Last Admin: 10/09/21 08:06 Dose: 1 puffs Documented by: Gabapentin (Gabapentin 600 Mg Tab) 600 mg PO BID [facility] Stop: 10/27/21 20:59 Last Admin: 10/09/21 08:06 Dose: 600 mg Documented by: Heparin Sodium (Porcine) (Heparin 100 Unit/Ml 5ml Flush) 5 ml FLUSH PRN PRN PRN Reason: Flush Stop: 10/31/21 07:19 Last Admin: 10/09/21 06:47 Dose: 5 ml Documented by: Isosorbide Mononitrate (Isosorbide Dukes Extended Rel 30 Mg Tabcr) 30 mg PO QAM [facility] Stop: 10/28/21 08:59 Last Admin: 10/09/21 08:07 Dose: 30 mg Documented by: Lamotrigine (Lamotrigine 100 Mg Tab) 200 mg PO BID [facility] Stop: 10/27/21 20:59 Last Admin: 10/09/21 08:06 Dose: 200 mg Documented by: Menthol (Cough Drop (Sugar Free) Lety 24 Lety/1 Box) 1 lety BUCCAL NOW PRN PRN Reason: Sore Throat Stop: 11/03/21 14:31 Last Admin: 10/04/21 16:14 Dose: 1 lety Documented by: Metolazone (Metolazone 2.5 Mg Tablet) 2.5 mg PO MoWeFr [facility] Stop: 11/07/21 07:59 Last Admin: 10/08/21 08:39 Dose: 2.5 mg Documented by: Metoprolol Succinate (Metoprolol Succ 50mg Ext Rel Tab) 50 mg PO DAILY [facility] Stop: 10/28/21 08:59 Last Admin: 10/09/21 08:07 Dose: 50 mg Documented by: Miconazole Nitrate (Miconazole Nitrate Powder 43 Gm) 1 appln EXT PRN PRN PRN Reason: Affected Skin Folds Stop: 11/01/21 09:24 Last Admin: 10/04/21 08:41 Dose: 1 appln Documented by: Nitroglycerin (Nitroglycerin Sl 0.4 Mg/Tab Tab) 0.4 mg SL UD PRN PRN Reason: Chest Pain Stop: 10/27/21 18:36 Ondansetron HCl (Ondansetron Inj 2 Mg/Ml 2 Ml Vial) 4 mg IV Q6H PRN PRN Reason: Nausea Stop: 10/27/21 18:36 Last Admin: 10/01/21 19:37 Dose: 4 mg Documented by: Phenylephrine HCl (Anusol Supp 1 Ea) 1 ea [place] HS PRN PRN Reason: Hemorrhoids Stop: 11/06/21 20:59 Polyethylene Glycol (Polyethylene (Miralax) 17 Gm Pack) 17 gm PO DAILY PRN PRN Reason: Constipation Stop: 10/27/21 18:36 Potassium Chloride (Potassium Chloride Crtab 20 Meq Tabcr) 40 meq PO BID [facility] Stop: 10/30/21 20:59 Last Admin: 10/09/21 08:06 Dose: 40 meq Documented by: Quetiapine Fumarate (Quetiapine Fumarate 200 Mg Tab) 200 mg PO HS [facility] Stop: 10/27/21 20:59 Last Admin: 10/08/21 22:35 Dose: 200 mg Documented by: Rosuvastatin Calcium (Rosuvastatin Calcium 20 Mg Tab) 40 mg PO DAILY [facility] Stop: 10/28/21 08:59 Last Admin: 10/09/21 08:08 Dose: 40 mg Documented by: Spironolactone (Spironolactone 25 Mg Tab) 50 mg PO BID [facility] Stop: 10/27/21 20:59 Last Admin: 10/09/21 08:08 Dose: 50 mg Documented by: Tamsulosin HCl (Tamsulosin Hcl 0.4 Mg Cap) 0.4 mg PO HS [facility] Stop: 10/27/21 20:59 Last Admin: 10/08/21 20:11 Dose: 0.4 mg Documented by: Torsemide (Torsemide 10 Mg Tab) 60 mg PO BID17 [facility] Stop: 11/07/21 16:59 Last Admin: 10/09/21 08:08 Dose: 60 mg Documented by: Tramadol HCl (Tramadol Hcl 50 Mg Tablet) 50 mg PO Q12H PRN PRN Reason: severe pain Stop: 10/29/21 17:49 Trolamine Salicylate (Trolamine Salicylate 10% Crm 255 Appln/85 Gm Tube) 1 sarahi ln EXT TID PRN PRN Reason: back pain Stop: 10/29/21 17:59 Last Admin: 10/09/21 15:41 Dose: 1 appln Documented by: Vitamin D (Cholecalciferol 5,000 Units 125 Mcg Tab) 5,000 units PO QDD [facility] Stop: 10/28/21 16:29 Last Admin: 10/09/21 15:40 Dose: 5,000 units Documented by: Warfarin Sodium (Warfarin Sod 5 Mg Tab) 5 mg PO DAILY@1600 [facility] Stop: 10/28/21 15:59 Last Admin: 10/09/21 15:40 Dose: 5 mg Documented by: Zolpidem Tartrate (Zolpidem Tartrate 5 Mg Tab) 5 mg PO HS PRN PRN Reason: Sleep Stop: 10/27/21 18:36 Last Admin: 10/08/21 22:35 Dose: 5 mg Documented by:
[2021-10-09] MEDS: QUEtiapine FUMARATE 200 MG TAB PO SCH (21:31)
[2021-10-09] MEDS: TAMSULOSIN HCL 0.4 MG CAP PO SCH (21:34)
[2021-10-09] MEDS: ZOLPIDEM TARTRATE 5 MG TAB PO PRN (23:11)
[2021-10-09] MEDS: ONDANSETRON INJ 2 MG/ML 2 ML VIAL IV PRN (23:17)
[2021-10-10] MEDS: TROLAMINE SALICYLATE 10% CRM 255 APPLN/85 GM TUBE EXT PRN ×3 (05:54→18:37)
[2021-10-10] MEDS: HEPARIN 100 UNIT/ML 5ML FLUSH FLUSH PRN (06:16)
[2021-10-10 06:41] LABS: Basophils # (auto) 0.03 K/uL (0-0.2); Basophils % (auto) 0.2 %; Eosinophils # (auto) 0.22 K/uL (0-0.5); Eosinophils % (auto) 1.5 %; Hematocrit (blood only) 40.2 % (42-52); Hemoglobin 13.4 g/dL (14.0-18.0); Immature Granulocytes # (auto) 0.14 K/uL (0.00-0.02); Lymphocytes # (auto) 2.45 K/uL (1.2-3.4); Lymphocytes % (auto) 17.2 %; Mean Corpuscular Hemoglobin 27.3 pg (25-34); Mean Corpuscular Hgb Conc 33.3 g/dL (32-36); Monocytes # (auto) 1.43 K/uL (0.11-0.59); Neutrophils # (auto) 9.96 K/uL (1.4-6.5); Neutrophils % (auto) 70.1 %; Platelet Count 274 K/uL (130-400); RDW Coefficient of Variation 18.2 % (11.5-14.5); RDW Standard Deviation 54.8 fL (36.4-46.3); White Blood Count 14.23 K/uL (4.8-10.8)
[2021-10-10 07:17] LABS: BUN Creatinine Ratio 33.7 (10-20); Calcium 9.6 mg/dl (8.5-10.1); Creatinine Clr Calc Pharmacy 41.2 ml/min; Est GFR (African American) 26.3 ml/min; Est GFR (Non-African American) 22.7 ml/min; Potassium 4.1 mmol/L (3.5-5.1)
[2021-10-10] MEDS: ALBUTEROL 0.083% NEBU SOLN 3 ML VIAL INH PRN (07:39)
[2021-10-10] MEDS: SPIRONOLACTONE 25 MG TAB PO SCH ×3 (07:53→21:11)
[2021-10-10] MEDS: FLUTICASONE/VILANTEROL 200/25MCG 14 PUFFS/INHALER INH SCH (07:53)
[2021-10-10] MEDS: GABAPENTIN 600 MG TAB PO SCH ×2 (07:53→21:09)
[2021-10-10] MEDS: ARIPiprazole 5 MG TAB PO SCH (07:53)
[2021-10-10] MEDS: ISOSORBIDE MONO EXTENDED REL 30 MG TABCR PO SCH (07:53)
[2021-10-10] MEDS: POTASSIUM CHLORIDE CRTAB 20 MEQ TABCR PO SCH ×3 (07:53→21:10)
[2021-10-10] MEDS: METOPROLOL SUCC 50MG EXT REL TAB PO SCH (07:54)
[2021-10-10] MEDS: TORSEMIDE 10 MG TAB PO SCH ×2 (07:54→08:02)
[2021-10-10] MEDS: ROSUVASTATIN CALCIUM 20 MG TAB PO SCH (07:54)
[2021-10-10] MEDS: EZETIMIBE 10 MG TABLET PO SCH (07:54)
[2021-10-10] MEDS: lamoTRIgine 100 MG TAB PO SCH ×2 (07:54→21:10)
[2021-10-10] MEDS: MICONAZOLE NITRATE POWDER 43 GM EXT PRN (07:55)
--- NOTE | 2021-10-10 11:06 | Hospitalist Progress Note ---
Date of Service October 10, 2021 Assessment & Plan (1) Acute on chronic right-sided heart failure: (2) Noncompliance: (3) Chronic atrial fibrillation: (4) Elevated d-dimer: (5) CAD (coronary artery disease): (6) Elevated troponin: (7) Morbid obesity: Plan: 61-year-old morbidly obese male with medical problems as below presented to ED on 09/27 with increased evidence of breath, weakness and weight gain. He is being managed for following medical problems 1. Acute on CKD 3, likely cardiorenal syndrome- Baseline creatinine 2.2, creatinine increased to 3.2 with diuresis, improved to 2.5 and now up to 2.88 today. Hold diuretics for today pending nephrology evaluation. 2. Chronic hyponatremia- sodium worse today, down to 125. Hold diuretics today and recheck in a.m. Might need sodium tablets, defer to nephrology. Hyponatremia was attributed to diuretics and antipsychotics 3. Acute on chronic right-sided heart failure- currently looks euvolemic. Diuresis management per nephrology-currently on torsemide, Aldactone, metolazone MWF. Continue strict I&O's, daily weight 4. Hypokalemia- resolved. Hold supplementation for today 5. Hypercalcemia-resolved 6. Chronic atrial fibrillation, sick sinus syndrome status post PPM- INR therapeutic, continue Coumadin. Adjust Coumadin according to INR 7. CAD s/p CABG-no chest pain. On beta-gomez, Imdur, statin 8. Elevated V-gpvro-ivadhowvtl lower extremity with no DVT. Could not get CTA given renal insufficiency, however would not acid changer given therapeutic anticoagulation on Coumadin 9. Chronic troponin elevation in setting of CKD and CHF-no chest pain, EKG this admission with no signs of acute ischemia 10. Morbid obesity with OSCAR-BMI 64. Weight loss, lifestyle modification and diet modification recommended. Continue BiPAP at bedtime 11. COPD-chronic, stable, no exacerbation, continue home inhalers 12. Tremors-appears to have resolved with holding topiramate. We will stop this at discharge and reevaluate need on PCP follow-up. 13. Noncompliance-does not qualify for rehab. apartment maintenance manager on board assisting with resources 14. Chronic leukocytosis-WBC stable, no evidence of infection. No fever. No indication for antibiotics DVT prophylaxis: Coumadin Full Code Dispo- Likely discharge in 1-2 days pending stabilization of renal function. We will coordinate with nephrology Admission and Anticipated Discharge Date Admission Date: September 27, 2021 Subjective Feels fine. No new issues. Normal appetite. States he is compliant with fluid restriction. Also states good urine output. He feels his legs get tired easily with ambulation Physical Exam Physical Exam: General: Morbidly obese, Lying comfortably in bed, not in distress, on NC HEENT: EOMI, DEIRDRE, MMM Chest: Clear breath sounds bilaterally, no wheezes or crackles CVS: Regular rate and rhythm, normal heart sounds, no murmur Abdomen: Soft, non tender, not distended, normal bowel sounds Neuro: Awake, alert, oriented, conversing well, non focal Extremities: No cyanosis, clubbing , trace edema Results & Data Results & Data ([facility]) Vital Signs (Past 12 Hours) Vital Signs Temp Pulse Pulse Resp BP Pulse Ox 10/10/21 08:02 78 20 95 10/10/21 07:25 77 10/10/21 06:39 36.7 C 80 20 130/71 96 10/10/21 03:59 36.4 C L 79 20 139/79 98 10/10/21 03:17 60 12 90 10/10/21 01:36 74 10/10/21 00:57 77 14 95 10/09/21 22:58 36.7 C 81 20 128/82 92 Laboratory Results Short CBC 10/10/21 Range/Units 06:13 WBC 14.23 H (4.8-10.8) K/uL Hgb 13.4 L (14.0-18.0) g/dL Hct 40.2 L (42-52) % Plt Count 274 (130-400) K/uL BMP 10/10/21 06:13 Sodium 125 L Potassium 4.1 D Chloride 85 L Carbon Dioxide 32 BUN 97 H Creatinine 2.88 H D Glucose 94 Calcium 9.6 Medications Administered Current Inpatient Medications Acetaminophen (Acetaminophen 500 Mg Tab) 1,000 mg PO Q8H PRN PRN Reason: pain or fever Stop: 10/29/21 17:59 Last Admin: 10/09/21 15:39 Dose: 1,000 mg Documented by: Albuterol (Albuterol Hfa 8 Gm Inhaler) 2 puffs INH QID PRN PRN Reason: Shortness Of Breath Or Wheezing Stop: 10/27/21 18:36 Albuterol (Albuterol 0.083% Nebu Soln 3 Ml Vial) 2.5 mg INH Q6 PRN; Protocol PRN Reason: Shortness Of Breath Or Wheezing Stop: 10/27/21 18:36 Last Admin: 10/10/21 07:39 Dose: 2.5 mg Documented by: Aripiprazole (Aripiprazole 5 Mg Tab) 5 mg PO QAM [facility] Stop: 10/28/21 08:59 Last Admin: 10/10/21 07:53 Dose: 5 mg Documented by: Ezetimibe (Ezetimibe 10 Mg Tablet) 10 mg PO DAILY [facility] Stop: 10/28/21 08:59 Last Admin: 10/10/21 07:54 Dose: 10 mg Documented by: Fluticasone/Vilanterol (Fluticasone/Vilanterol 200/25mcg 14 Puffs/Inhaler) 1 puffs INH DAILY [facility] Stop: 10/28/21 08:59 Last Admin: 10/10/21 07:53 Dose: 1 puffs Documented by: Gabapentin (Gabapentin 600 Mg Tab) 600 mg PO BID [facility] Stop: 10/27/21 20:59 Last Admin: 10/10/21 07:53 Dose: 600 mg Documented by: Heparin Sodium (Porcine) (Heparin 100 Unit/Ml 5ml Flush) 5 ml FLUSH PRN PRN PRN Reason: Flush Stop: 10/31/21 07:19 Last Admin: 10/10/21 06:16 Dose: 5 ml Documented by: Isosorbide Mononitrate (Isosorbide Blanco Extended Rel 30 Mg Tabcr) 30 mg PO QAM [facility] Stop: 10/28/21 08:59 Last Admin: 10/10/21 07:53 Dose: 30 mg Documented by: Lamotrigine (Lamotrigine 100 Mg Tab) 200 mg PO BID [facility] Stop: 10/27/21 20:59 Last Admin: 10/10/21 07:54 Dose: 200 mg Documented by: Menthol (Cough Drop (Sugar Free) Lety 24 Lety/1 Box) 1 lety BUCCAL NOW PRN PRN Reason: Sore Throat Stop: 11/03/21 14:31 Last Admin: 10/04/21 16:14 Dose: 1 lety Documented by: Metolazone (Metolazone 2.5 Mg Tablet) 2.5 mg PO MoWeFr [facility] Stop: 11/07/21 07:59 Last Admin: 10/08/21 08:39 Dose: 2.5 mg Documented by: Metoprolol Succinate (Metoprolol Succ 50mg Ext Rel Tab) 50 mg PO DAILY [facility] Stop: 10/28/21 08:59 Last Admin: 10/10/21 07:54 Dose: 50 mg Documented by: Miconazole Nitrate (Miconazole Nitrate Powder 43 Gm) 1 appln EXT PRN PRN PRN Reason: Affected Skin Folds Stop: 11/01/21 09:24 Last Admin: 10/10/21 07:55 Dose: 1 appln Documented by: Nitroglycerin (Nitroglycerin Sl 0.4 Mg/Tab Tab) 0.4 mg SL UD PRN PRN Reason: Chest Pain Stop: 10/27/21 18:36 Ondansetron HCl (Ondansetron Inj 2 Mg/Ml 2 Ml Vial) 4 mg IV Q6H PRN PRN Reason: Nausea Stop: 10/27/21 18:36 Last Admin: 10/09/21 23:17 Dose: 4 mg Documented by: Phenylephrine HCl (Anusol Supp 1 Ea) 1 ea [place] HS PRN PRN Reason: Hemorrhoids Stop: 11/06/21 20:59 Polyethylene Glycol (Polyethylene (Miralax) 17 Gm Pack) 17 gm PO DAILY PRN PRN Reason: Constipation Stop: 10/27/21 18:36 Potassium Chloride (Potassium Chloride Crtab 20 Meq Tabcr) 40 meq PO BID [facility] Stop: 10/30/21 20:59 Last Admin: 10/10/21 08:02 Dose: Not Given Documented by: Quetiapine Fumarate (Quetiapine Fumarate 200 Mg Tab) 200 mg PO HS [facility] Stop: 10/27/21 20:59 Last Admin: 10/09/21 21:31 Dose: 200 mg Documented by: Rosuvastatin Calcium (Rosuvastatin Calcium 20 Mg Tab) 40 mg PO DAILY [facility] Stop: 10/28/21 08:59 Last Admin: 10/10/21 07:54 Dose: 40 mg Documented by: Spironolactone (Spironolactone 25 Mg Tab) 50 mg PO BID [facility] Stop: 10/27/21 20:59 Last Admin: 10/10/21 08:02 Dose: Not Given Documented by: Tamsulosin HCl (Tamsulosin Hcl 0.4 Mg Cap) 0.4 mg PO HS [facility] Stop: 10/27/21 20:59 Last Admin: 10/09/21 21:34 Dose: 0.4 mg Documented by: Torsemide (Torsemide 10 Mg Tab) 60 mg PO BID17 [facility] Stop: 11/07/21 16:59 Last Admin: 10/10/21 08:02 Dose: Not Given Documented by: Tramadol HCl (Tramadol Hcl 50 Mg Tablet) 50 mg PO Q12H PRN PRN Reason: severe pain Stop: 10/29/21 17:49 Trolamine Salicylate (Trolamine Salicylate 10% Crm 255 Appln/85 Gm Tube) 1 appln EXT TID PRN PRN Reason: back pain Stop: 10/29/21 17:59 Last Admin: 10/10/21 07:55 Dose: 1 appln Documented by: Vitamin D (Cholecalciferol 5,000 Units 125 Mcg Tab) 5,000 units PO QDD [facility] Stop: 10/28/21 16:29 Last Admin: 10/09/21 15:40 Dose: 5,000 units Documented by: Warfarin Sodium (Warfarin Sod 5 Mg Tab) 5 mg PO DAILY@1600 [facility] Stop: 10/28/21 15:59 Last Admin: 10/09/21 15:40 Dose: 5 mg Documented by: Zolpidem Tartrate (Zolpidem Tartrate 5 Mg Tab) 5 mg PO HS PRN PRN Reason: Sleep Stop: 10/27/21 18:36 Last Admin: 10/09/21 23:11 Dose: 5 mg Documented by:
--- NOTE | 2021-10-10 11:12 | Nephrology Progress Note ---
Date of Service October 10, 2021 Assessment & Plan (1) Acute on chronic right-sided heart failure: Plan: Patient with acute on chronic right-sided heart failure. He is on RA. diuresis slowing w/ him being on lower lasix dosing. Patient was net -3.1L neg 10/02; net 1L neg 10/03; 4.2L negative 10/04; 3.32 L negative 10/05 according to I/O but weights belie this. First standing wt this hospitalization is 178.3 on 10/02; pt at 176.5 10/04; 175.4 10/05; 175.1 on 10/06; 175.4 on 10/07, 174.7 on 10/08. renal function worsened 2.7>3.1 on 10/04 and now plateau'd -lowered torsemide to 60 mg bid ON 10/08, however his creatinine climbed to 2.8 sodium has dropped to 125. -Increase torsemide back to 100 twice daily,if sodium is still low, hold metolazone for tmrw. -Continue with potassium replacement. -Daily bmp. -Monitor input output strictly -continue daily standing weights -cont tightened FR 1.2L; low Na diet (2) Acute renal insufficiency: Plan: Baseline creatinine 2.2; stage 1 nonoliguric EDSON from cardiorenal syndrome. Creatinine again worst it's been this admission or others >> hovering at about 3;improved w/ diuretic dose lowerings. K addressed as above; hyponatremia which is chronic and fluctuates,longer term renal prognosis poor. We will continue diuresis as above. Avoid nephrotoxins and monitor renal function with a BMP daily Admission and Anticipated Discharge Date Admission Date: September 27, 2021 Subjective Comfortable. No new issues overnight. Review of Systems Review of Systems: All other systems were reviewed and negative except as noted in HPI Results & Data ([facility]) Vital Signs (Past 12 Hours) Vital Signs Temp Pulse Pulse Resp BP Pulse Ox 10/10/21 11:08 36.8 C 99 H 20 113/53 L 90 10/10/21 08:02 78 20 95 10/10/21 07:25 77 10/10/21 06:39 36.7 C 80 20 130/71 96 10/10/21 03:59 36.4 C L 79 20 139/79 98 10/10/21 03:17 60 12 90 10/10/21 01:36 74 10/10/21 00:57 77 14 95 Laboratory Results 10/10/21 06:13 10/10/21 06:13
[2021-10-10] MEDS: TORSEMIDE 100 MG TAB PO SCH ×2 (12:35→15:44)
[2021-10-10] MEDS: CHOLECALCIFEROL 5,000 UNITS 125 MCG TAB PO SCH (15:44)
[2021-10-10] MEDS: WARFARIN SOD 5 MG TAB PO SCH (15:44)
[2021-10-10] MEDS: TAMSULOSIN HCL 0.4 MG CAP PO SCH (21:11)
[2021-10-10] MEDS: ACETAMINOPHEN 500 MG TAB PO PRN (22:33)
[2021-10-10] MEDS: QUEtiapine FUMARATE 200 MG TAB PO SCH (22:33)
[2021-10-10] MEDS: ZOLPIDEM TARTRATE 5 MG TAB PO PRN (22:33)
[2021-10-11] MEDS: TROLAMINE SALICYLATE 10% CRM 255 APPLN/85 GM TUBE EXT PRN (05:40)
[2021-10-11 06:33] LABS: INR 3.4 (0.9-1.1); Prothrombin Time 34.2 Seconds (9.0-12.0)
[2021-10-11 07:02] LABS: BUN Creatinine Ratio 34.4 (10-20); Calcium 10.3 mg/dl (8.5-10.1); Creatinine Clr Calc Pharmacy 42.8 ml/min; Est GFR (African American) 27.7 ml/min; Est GFR (Non-African American) 23.9 ml/min; Potassium 3.7 mmol/L (3.5-5.1)
[2021-10-11] MEDS: GABAPENTIN 600 MG TAB PO SCH (08:41)
[2021-10-11] MEDS: TORSEMIDE 100 MG TAB PO SCH (08:41)
[2021-10-11] MEDS: metOLazone 2.5 MG TABLET PO SCH (08:41)
[2021-10-11] MEDS: ISOSORBIDE MONO EXTENDED REL 30 MG TABCR PO SCH (08:41)
[2021-10-11] MEDS: SPIRONOLACTONE 25 MG TAB PO SCH (08:41)
[2021-10-11] MEDS: EZETIMIBE 10 MG TABLET PO SCH (08:41)
[2021-10-11] MEDS: ROSUVASTATIN CALCIUM 20 MG TAB PO SCH (08:41)
[2021-10-11] MEDS: METOPROLOL SUCC 50MG EXT REL TAB PO SCH (08:41)
[2021-10-11] MEDS: ARIPiprazole 5 MG TAB PO SCH (08:41)
[2021-10-11] MEDS: POTASSIUM CHLORIDE CRTAB 20 MEQ TABCR PO SCH (08:42)
[2021-10-11] MEDS: FLUTICASONE/VILANTEROL 200/25MCG 14 PUFFS/INHALER INH SCH (08:42)
[2021-10-11] MEDS: lamoTRIgine 100 MG TAB PO SCH (08:42)
--- NOTE | 2021-10-11 09:20 | Cardiology Progress Note ---
Date of Service October 11, 2021 Assessment & Plan (1) Right-sided congestive heart failure: (2) Morbid obesity: (3) CKD (chronic kidney disease) stage 3, GFR 30-59 ml/min: (4) CAD (coronary artery disease): (5) Status post placement of cardiac pacemaker: (6) Chronic atrial fibrillation: (7) OSCAR (obstructive sleep apnea): (8) Cor pulmonale: Plan: Markedly complex, noncompliant, 61-year-old male admitted with recurrent (despite attempts at aggressive outpatient medical management) acute on chronic right greater than left biventricular congestive heart failure. Diuretics are being directed by Nephrology and patient was recently transitioned to PO diuretics. 1200 mL fluid restriction per nephro. Supplement potassium orally, continuing spironolactone. Recommend BiPAP when sleeping throughout the day and at night. Creatinine around baseline. Sodium levels improved this morning. No further cardiology recommendations at this time- ok to discharge from a cardiac standpoint. Will defer to nephrology for recommendations on PO oral diuretic dosing. Case discussed with Dr. Dumont Admission and Anticipated Discharge Date Admission Date: September 27, 2021 Subjective Patient resting in bed comfortably. Mild dizziness reported while in the restroom this morning, but resolved quickly. No current symptoms. respiratory status at baseline. No chest pain. No orthopnea, PND or increased edema. Hoping to go home today. Review of Systems Review of Systems: Complete review of systems is otherwise as stated above, negative, or noncontributory. Physical Exam Constitutional: + morbidly obese; no acute distress Eyes: PERRL, conjunctivae normal, anicteric sclerae Neck: + thick neck Respiratory: no audible wheezes Auscultation: + diminished lung sounds Cardiovascular: Rate/Rhythm: regular rate (Paced rhythm) Heart Sounds: no murmur Extremities: + edema (trace pretibial edema) Gastrointestinal (Abdomen): normal bowel sounds, soft, nontender, no hepatosplenomegaly Skin: no rashes, warm and dry Psychiatric: A+Ox3, euthymic affect Results & Data ([facility]) Vital Signs (Past 12 Hours) Vital Signs Temp Pulse Pulse Pulse Resp BP Pulse Ox 10/11/21 07:36 36.6 C 79 18 136/81 92 10/11/21 06:54 87 10/11/21 03:11 76 20 108/74 96 10/11/21 02:30 80 17 95 10/11/21 00:30 76 14 87 L 10/11/21 00:19 86 10/10/21 22:56 36.5 C 80 20 115/75 95 Laboratory Results 10/11/21 10/11/21 Range/Units 06:11 05:57 PT 34.2 H (9.0-12.0) Seconds INR 3.4 H (0.9-1.1) Sodium 131 L (136-145) mmol/L Potassium 3.7 (3.5-5.1) mmol/L Chloride 87 L (98-107) mmol/L Carbon Dioxide 33 H (21-32) mmol/L Anion Gap 11 (3-11) BUN 95 H (6-23) mg/dl Creatinine 2.76 H (0.6-1.4) mg/dl Est Cr Clr Drug Dosing 42.8 ml/min Est GFR ( Amer) 27.7 ml/min Est GFR (Non-Af Amer) 23.9 ml/min BUN/Creatinine Ratio 34.4 H (10-20) Glucose 99 (70-99(Fasting)) mg/dl Calcium 10.3 H (8.5-10.1) mg/dl Diagnostic Findings Telemetry reviewed -Afib, rates controlled with intermittent pacing Medications Administered Current Inpatient Medications Acetaminophen (Acetaminophen 500 Mg Tab) 1,000 mg PO Q8H PRN PRN Reason: pain or fever Stop: 10/29/21 17:59 Last Admin: 10/10/21 22:33 Dose: 1,000 mg Documented by: Albuterol (Albuterol Hfa 8 Gm Inhaler) 2 puffs INH QID PRN PRN Reason: Shortness Of Breath Or Wheezing Stop: 10/27/21 18:36 Albuterol (Albuterol 0.083% Nebu Soln 3 Ml Vial) 2.5 mg INH Q6 PRN; Protocol PRN Reason: Shortness Of Breath Or Wheezing Stop: 10/27/21 18:36 Last Admin: 10/10/21 07:39 Dose: 2.5 mg Documented by: Aripiprazole (Aripiprazole 5 Mg Tab) 5 mg PO QAM [facility] Stop: 10/28/21 08:59 Last Admin: 10/11/21 08:41 Dose: 5 mg Documented by: Ezetimibe (Ezetimibe 10 Mg Tablet) 10 mg PO DAILY [facility] Stop: 10/28/21 08:59 Last Admin: 10/11/21 08:41 Dose: 10 mg Documented by: Fluticasone/Vilanterol (Fluticasone/Vilanterol 200/25mcg 14 Puffs/Inhaler) 1 puffs INH DAILY [facility] Stop: 10/28/21 08:59 Last Admin: 10/11/21 08:42 Dose: 1 puffs Documented by: Gabapentin (Gabapentin 600 Mg Tab) 600 mg PO BID [facility] Stop: 10/27/21 20:59 Last Admin: 10/11/21 08:41 Dose: 600 mg Documented by: Heparin Sodium (Porcine) (Heparin 100 Unit/Ml 5ml Flush) 5 ml FLUSH PRN PRN PRN Reason: Flush Stop: 10/31/21 07:19 Last Admin: 10/10/21 06:16 Dose: 5 ml Documented by: Isosorbide Mononitrate (Isosorbide Willacy Extended Rel 30 Mg Tabcr) 30 mg PO QAM [facility] Stop: 10/28/21 08:59 Last Admin: 10/11/21 08:41 Dose: 30 mg Documented by: Lamotrigine (Lamotrigine 100 Mg Tab) 200 mg PO BID [facility] Stop: 10/27/21 20:59 Last Admin: 10/11/21 08:42 Dose: 200 mg Documented by: Menthol (Cough Drop (Sugar Free) Lety 24 Lety/1 Box) 1 lety BUCCAL NOW PRN PRN Reason: Sore Throat Stop: 11/03/21 14:31 Last Admin: 10/04/21 16:14 Dose: 1 lety Documented by: Metolazone (Metolazone 5 Mg Tablet) 5 mg PO MoWeFr [facility] Stop: 11/12/21 09:19 Metoprolol Succinate (Metoprolol Succ 50mg Ext Rel Tab) 50 mg PO DAILY [facility] Stop: 10/28/21 08:59 Last Admin: 10/11/21 08:41 Dose: 50 mg Documented by: Miconazole Nitrate (Miconazole Nitrate Powder 43 Gm) 1 appln EXT PRN PRN PRN Reason: Affected Skin Folds Stop: 11/01/21 09:24 Last Admin: 10/10/21 07:55 Dose: 1 appln Documented by: Nitroglycerin (Nitroglycerin Sl 0.4 Mg/Tab Tab) 0.4 mg SL UD PRN PRN Reason: Chest Pain Stop: 10/27/21 18:36 Ondansetron HCl (Ondansetron Inj 2 Mg/Ml 2 Ml Vial) 4 mg IV Q6H PRN PRN Reason: Nausea Stop: 10/27/21 18:36 Last Admin: 10/09/21 23:17 Dose: 4 mg Documented by: Phenylephrine HCl (Anusol Supp 1 Ea) 1 ea NH HS PRN PRN Reason: Hemorrhoids Stop: 11/06/21 20:59 Polyethylene Glycol (Polyethylene (Miralax) 17 Gm Pack) 17 gm PO DAILY PRN PRN Reason: Constipation Stop: 10/27/21 18:36 Potassium Chloride (Potassium Chloride Crtab 20 Meq Tabcr) 40 meq PO BID [facility] Stop: 10/30/21 20:59 Last Admin: 10/11/21 08:42 Dose: 40 meq Documented by: Quetiapine Fumarate (Quetiapine Fumarate 200 Mg Tab) 200 mg PO [facility] Stop: 10/27/21 20:59 Last Admin: 10/10/21 22:33 Dose: 200 mg Documented by: Rosuvastatin Calcium (Rosuvastatin Calcium 20 Mg Tab) 40 mg PO DAILY [facility] Stop: 10/28/21 08:59 Last Admin: 10/11/21 08:41 Dose: 40 mg Documented by: Spironolactone (Spironolactone 25 Mg Tab) 50 mg PO BID [facility] Stop: 10/27/21 20:59 Last Admin: 10/11/21 08:41 Dose: 50 mg Documented by: Tamsulosin HCl (Tamsulosin Hcl 0.4 Mg Cap) 0.4 mg PO HS [facility] Stop: 10/27/21 20:59 Last Admin: 10/10/21 21:11 Dose: 0.4 mg Documented by: Torsemide (Torsemide 100 Mg Tab) 100 mg PO BID17 [facility] Stop: 11/09/21 11:29 Last Admin: 10/11/21 08:41 Dose: 100 mg Documented by: Tramadol HCl (Tramadol Hcl 50 Mg Tablet) 50 mg PO Q12H PRN PRN Reason: severe pain Stop: 10/29/21 17:49 Trolamine Salicylate (Trolamine Salicylate 10% Crm 255 Appln/85 Gm Tube) 1 appln EXT TID PRN PRN Reason: back pain Stop: 10/29/21 17:59 Last Admin: 10/11/21 05:40 Dose: 1 appln Documented by: Vitamin D (Cholecalciferol 5,000 Units 125 Mcg Tab) 5,000 units PO QDD [facility] Stop: 10/28/21 16:29 Last Admin: 10/10/21 15:44 Dose: 5,000 units Documented by: Warfarin Sodium (Warfarin Sod 5 Mg Tab) 5 mg PO DAILY@1600 [facility] Stop: 10/28/21 15:59 Last Admin: 10/10/21 15:44 Dose: 5 mg Documented by: Zolpidem Tartrate (Zolpidem Tartrate 5 Mg Tab) 5 mg PO HS PRN PRN Reason: Sleep Stop: 10/27/21 18:36 Last Admin: 10/10/21 22:33 Dose: 5 mg Documented by:
--- NOTE | 2021-10-11 09:20 | Nephrology Progress Note ---
Date of Service October 11, 2021 Assessment & Plan Admission and Anticipated Discharge Date Admission Date: September 27, 2021 Subjective Assessment & Plan (1) Acute on chronic right-sided heart failure: Plan: Patient with acute on chronic right-sided heart failure. He is on 2L this AM. diuresis slowing w/ him being on lower lasix dosing. Patient was net -3.1L neg 10/02; net 1L neg 10/03; 4.2L negative 10/04; 3.32 L negative 10/05 according to I/O but weights belie this. First standing wt this hospitalization is 178.3 on 10/02; pt at 176.5 10/04; 175.4 10/05; 175.1 on 10/06; 175.4 on 10/07. renal function worsened 2.7>3.1 on 10/04 and now plateau'd Continue Demadex 100bid. metolazone 5 mg MWF -cont aldactone 50 mg bid Todays labs better --better Na+ and stable creat. Honestly this is as good as it gets with his labs and volume status. (2) Acute renal insufficiency: Plan: varying creat as expected with rt heart failure and diuretics 2 to 3 creat is baseline for him Subjective slept poorly; no c/o worsening dyspnea or edema. Review of Systems Review of Systems: All systems reviewed & are unremarkable except as noted in Subjective Physical Exam Constitutional: well developed, well nourished and + morbidly obese; no acute distress Eyes: EOM intact bilaterally ENMT: Ears: no external ear abnormality Nose: no external nose abnormality Mouth: + dry oral mucous membranes Neck: no nuchal rigidity Respiratory: normal respiratory effort (sitting in bed on RA) Auscultation: + diminished lung sounds Cardiovascular: Rate/Rhythm: regular rate and regular rhythm Extremities: + edema (trace BLE) Gastrointestinal (Abdomen): Inspection/Auscultation: normal bowel sounds Percussion/Palpation: abdomen soft; abdomen nontender Musculoskeletal: Extremities: strength 5/5 throughout Skin: no rashes, warm and dry Psychiatric: Orientation: oriented to person and oriented to place Insight: + limited insight Results & Data ([facility]) Vital Signs (Past 12 Hours) Vital Signs Temp Pulse Pulse Pulse Resp BP Pulse Ox 10/11/21 07:36 36.6 C 79 18 136/81 92 03/07/22 06:54 87 10/11/21 03:11 76 20 108/74 96 10/11/21 02:30 80 17 95 10/11/21 00:30 76 14 87 L 10/11/21 00:19 86 10/10/21 22:56 36.5 C 80 20 115/75 95
--- NOTE | 2021-10-11 12:58 | Discharge Summary ---
Date of Service October 11, 2021 Admission HPI Per Admitting Provider Patient is a 61-year-old male with history of chronic right-sided heart failure, obstructive sleep apnea on BiPAP, COPD, coronary artery disease S/P CABG, hypertension, morbid obesity, GERD, hypertensive heart disease, sick sinus syndrome S/P PPM, COVID, atrial fibrillation on chronic anticoagulation with Coumadin, CKD stage III and other medical problems presents with history of worsening shortness of breath, weight gain and leg swelling since 1 week duration. Patient states that he has been more dyspneic at rest and also with activity. He admits to taking his diuretics regularly but had worsening leg swelling associated with weight gain of about 9 pounds in 1 week. Patient received 2 doses of IV Lasix as outpatient but had no relief of his symptoms. He also states having mild non expectorant cough, and dizziness with movement. Patient does not follow fluid restriction. He also reports having chronic back pain. He admits to missing his Coumadin dose 2 days ago and so took double his usual Coumadin dose yesterday (took 10mg). Denies any history of chest pain, palpitations, diaphoresis, wheezing, hemoptysis, fever, chills, headache, change in vision, nausea, vomiting, abdominal pain, diarrhea, change in appetite, dysuria, hematuria. He was found to be hypoxic while in ED 85% on room air. Admission Exam Per Admitting Provider Vitals signs as noted above General Appearance:Morbidly Obese, no apparent distress Head: normocephalic, Atraumatic Eyes: normal inspection, EOMI Neck: supple, Trachea midline Respiratory/Chest: Normal breath sounds, CTA, No accessory muscle use, +Port on R side of chest Cardiovascular: Irregularly irregular, No murmur Abdomen/GI:Soft to firm, Non tender, distended, Bowel sounds present Extremities/Musculoskeletal:normal inspection, + B/L LE edema Neurologic/Psych:AAOX3, grossly no focal neurological deficits Skin: normal color, warm Principal Diagnosis acute on chronic right heart failure, acute on chronic kidney disease stage 3 Discharge Exam General: Morbidly obese, Lying comfortably in bed, not in distress, on room air HEENT: EOMI, DEIRDRE, MMM Chest: Clear breath sounds bilaterally, no wheezes or crackles CVS: Regular rate and rhythm, normal heart sounds, no murmur Abdomen: Soft, non tender, not distended, normal bowel sounds Neuro: Awake, alert, oriented, conversing well, non focal Extremities: No cyanosis, clubbing , trace edema Discharge Data Allergies Allergy/AdvReac Type Severity Reaction Status Date / Time morphine AdvReac Mild nausea and Verified 09/27/21 12:25 vomiting Consultations 09/27/21 16:14 ED Decision to Admit Stat 09/27/21 17:02 Consult Nephrology Routine 09/27/21 17:03 Consult Cardiology Routine 10/06/21 17:13 Consult Gastroenterology Routine Ordered Studies 09/27/21 14:05 US venous doppler [facility] Stat Hospital Course (1) Acute on chronic right-sided heart failure: (2) Noncompliance: (3) Chronic atrial fibrillation: (4) Elevated d-dimer: (5) CAD (coronary artery disease): (6) Elevated troponin: (7) Morbid obesity: 61-year-old morbidly obese male with medical problems as below presented to ED on 09/27 with increased evidence of breath, weakness and weight gain. 1. Acute on CKD 3, likely cardiorenal syndrome- Baseline creatinine 2-3, Cr has remained stable with diuresis. Nephrology manging diuresis- recommends torsemide 100 bid, metolazone 5 mg MWF (increased from 2.5) and aldactone 50 bid, along with potassium supplementation. Ok to discharge per nephro and cardio. Will need close outpatient follow up. 2. Chronic hyponatremia- stable, sodium 131 today. 3. Acute on chronic right-sided heart failure- currently looks euvolemic. Diuresis management per nephrology as above. Recommend continuing daily weight check at home. 4. Hypokalemia- resolved. continue po supplementation with diuresis 5. Chronic atrial fibrillation, sick sinus syndrome status post PPM- INR 3.4 today, recommended holding coumadin for today, follow up with MTM anticoagulation tomorrow for further coumadin recommendations. 6. CAD s/p CABG-no chest pain. On beta-gomez, Imdur, statin 7. Elevated [id number] lower extremity with no DVT. Could not get CTA given renal insufficiency, however would not exchange administrator given therapeutic anticoagulation on Coumadin 8. Chronic troponin elevation in setting of CKD and CHF-no chest pain, EKG this admission with no signs of acute ischemia 9. Morbid obesity with OSCAR-BMI 64. Weight loss, lifestyle modification and diet modification recommended. Continue BiPAP at bedtime 10. COPD-chronic, stable, no exacerbation, continue home inhalers 11. Tremors-appears to have resolved with holding topiramate. We will stop this at discharge and reevaluate need on PCP follow-up. 12. Chronic leukocytosis-WBC stable, no evidence of infection. No fever. No indication for antibiotic Total Time Total Time Spent Total Time Spent (In Minutes): 45 Discharge Plan Discharge Items Patient Disposition: Home - Self-Care Reason For Visit: SHORTNESS OF BREATH Discharge Diagnosis: Acute on chronic Right sided heart failure Acute on chronic kidney disease stage 3 Activity: Resume your previous activity Non-emergency contact: Primary Care Provider, [employer] Call non-emergency contact if: you have any medication questions and your symptoms worsen Follow-up/Referrals: [facility] [Other] (Date & Time 10/14/2021 11:00 AM Provider Yahaira Echevarria RN Department [facility], [facility] ) Moi Calles MD [Surgeon] - (Date & Time 11/09/2021 1:40 PM Provider Moi Calles MD Department Nephrology, [facility] ) Jp Morillo MD [Primary Care Provider] - (Date & Time 10/13/2021 9:00 AM Provider Sharon Zambrano DO Department [facility] ) Diet: Heart Healthy, Low Fat and Low Sodium (2gm) Fluids: 1200ml (5 cups) Addtl Attending Provider Instructions: Continue torsemide 100 mg twice daily along with metolazone 5 mg (increased from 2.5 mg) three times a week along with potassium supplementation. HOLD YOUR COUMADIN FOR TODAY INR IS HIGH. Follow with UTM anticoagulation tomorrow regarding further instructions for coumadin. Stop your topiramate as your tremors might be related to it. Talk to your family doctor if you still need it. Follow with your kidney doctor, heart doctor and family doctor Pending Studies at Discharge: No Stand-Alone Forms: My ihiji, Smoking Cessation Medications and DC Order Prescriptions: Continued gabapentin 600 mg Tablet 600 mg PO BID RF: 0 lamotrigine [Lamictal] 200 mg Tablet 200 mg PO BID RF: 0 isosorbide mononitrate 30 mg Tablet Extended Release 24 Hr 30 mg PO QAM RF: 0 nitroglycerin [Nitrostat] 0.4 mg Tablet, Sublingual 0.4 mg Sublingual DIRECTED PRN (Reason: Chest Pain) RF: 0 zolpidem [Ambien] 5 mg Tablet 5 mg PO HS PRN (Reason: Sleep) RF: 0 albuterol sulfate [ProAir HFA] 90 mcg/actuation Hfa Aerosol Inhaler 2 puff INHALATION QID PRN (Reason: Shortness Of Breath Or Wheezing) RF: 0 fluticasone propion-salmeterol [Advair Diskus] 250-50 mcg/dose Blister With Device 1 inh INHALATION BID RF: 0 albuterol sulfate 2.5 mg /3 mL (0.083 %) Solution For Nebulization 2.5 mg INHALATION Q6 PRN (Reason: Shortness Of Breath Or Wheezing) RF: 0 aripiprazole [Abilify] 5 mg tablet 5 mg PO QAM RF: 0 rosuvastatin [Crestor] 40 mg tablet 40 mg PO DAILY RF: 0 metoprolol succinate 50 mg tablet extended release 24 hr 50 mg PO DAILY RF: 0 spironolactone 50 mg tablet 50 mg PO BID RF: 0 quetiapine [Seroquel] 200 mg tablet 200 mg PO HS RF: 0 cholecalciferol (vitamin D3) [Vitamin D3] 125 mcg (5,000 unit) Tablet 125 mcg PO QDD RF: 0 torsemide 20 mg Tablet 100 mg PO BID Qty: 300 RF: 0 warfarin 5 mg tablet 5 mg PO UD Qty: 0 RF: 0 tamsulosin 0.4 mg capsule 0.4 mg PO HS RF: 0 ezetimibe 10 mg tablet 10 mg PO DAILY RF: 0 potassium chloride 20 mEq tablet,ER particles/crystals 60 meq PO TID Qty: 300 RF: 0 Changed metolazone 5 mg tablet 5 mg PO MOWEFR Qty: 12 RF: 0 Discontinued topiramate [Topamax] 25 mg Tablet 25 mg PO BID RF: 0 Discharge Orders: Discharge Order (Routine); Ordered 10/11/21 Ordered By: Elijah Bojorquez Admission Data Admit Date/Time: 09/27/21 16:56 Attending Provider: Elijah Bojorquez Admit Provider: Bear Smith Primary Care Provider: Jp Morillo Other Providers: Moi Calles ; Jorge Manzanares ; Bear Smith ; Bishop Jacques ; Georgia Valencia Other Interventions: Discharge Summary Assessment (RN) Last Done: 10/11/21 12:44
[2021-10-13] MEDS ORDERED: metOLazone 5 MG TABLET PO SCH (08:00)
== END 2021-10-11 13:57 | disposition home or self-care (01) | DRG 291 ==
LOC: ED 11:27 → SUATTDRO 16:56 → EDINP 16:56 → 2N 21:04